=== PATIENT | male | born 1940 | race Caucasian/White ===

== ENCOUNTER 2016-11-27 11:37 | Inpatient (IN) ==
--- NOTE | 2016-11-27 12:22 | Emergency Department Note ---
Disposition Clinical Impression: Generalized weakness, Elevated troponin CHF exacerbation Qualifiers: Congestive heart failure type: unspecified congestive heart failure type Qualified Code(s): I50.9 - Heart failure, unspecified Disposition: Admitted As Inpatient Condition: Fair Referrals: Adolfo Tobias DO [Primary Care Provider] - Forms: ED Satisfaction Letter Time of Disposition: 14:03 SOB HPI - General Chief Complaint: ED Shortness of Breath/Dyspnea Stated Complaint: RYDER Cough L side pain Time Seen by Provider: 11/27/16 12:06 Source: patient Limitations: no limitations Nursing Notes Reviewed: Yes Vital Signs Reviewed: Yes - History of Present Illness Patient is a 76-year-old male who presents to [facility] ED with a chief complaint of difficulty breathing. Patient was recently discharged home on 11/23/2016 after having fluid removed via dialysis for his congestive heart failure. Patient has continued to undergo dialysis Sunday and Sunday and decided this morning. States he has been increasingly short of breath and weak since going home. He lives at home by himself is unable to take care of of himself. Denies any nausea, vomiting, fever or chills. He has had a persistent cough. No chest pain or abdominal pain. He is complaining of some left-sided rib pain and left shoulder pain. No prior SC. Patient also has history of amyloidosis for which he receives chemotherapy. Pt Subjective Complaint: shortness of breath Onset (ago): day(s) Context: recent illness Severity: moderate Consistency/Duration: gradually worsening Improves with: nothing Worsens with: lying flat, exertion Known history of: congestive heart failure Associated symptoms: Reports: cough, orthopnea Treatment prior to arrival: none Cough present: Yes Cough Description: Involuntary, Hacking Cough Frequency: Intermittent Sputum production: Yes Sputum Amount: Small Sputum Color: Yellow - Related Data Home oxygen amount: 2 liters Home Medications Medication Instructions Recorded Confirmed Acetaminophen [Tylenol Arthritis] 650 mg PO BID 07/26/16 11/27/16 Aspirin [Lo-Dose Aspirin EC] 81 mg PO DAILY 07/26/16 11/27/16 Calcium Acetate [Phos-LO] 667 mg PO TIDWM 07/26/16 11/27/16 Docusate [Colace] 100 mg PO BID 07/26/16 11/27/16 EPINEPHrine [Epipen] 0.3 mg IM ONCE PRN 07/26/16 11/27/16 Finasteride [Proscar] 5 mg PO DAILY 07/26/16 11/27/16 Fluticasone Propionate [Flovent 2 spray IH DAILY 07/26/16 11/27/16 Diskus] Furosemide [Lasix] 20 mg PO DAILY 07/26/16 11/27/16 Metoprolol [Lopressor] 25 mg PO BID 07/26/16 11/27/16 Omeprazole [PriLOSEC] 20 mg PO DAILY 07/26/16 11/27/16 Simvastatin [Zocor] 40 mg PO HS 07/26/16 11/27/16 Sodium Bicarbonate 650 mg PO BID 07/26/16 11/27/16 Vit A/C/E AC/Znox/Cupric Oxide 2 each PO DAILY 07/26/16 11/27/16 [Eye Vitamin-Minerals Tablet] Warfarin [Coumadin] 2.5 mg PO SUTUTHSA 07/26/16 11/27/16 Warfarin [Coumadin] 5 mg PO MOWEFR 07/26/16 11/27/16 Polyvinyl Alcohol/Povidone/Pf 1 drop OP DAILY 08/18/16 11/27/16 [Refresh Classic Eye Drops] Oxygen 2 l NS AD 10/13/16 11/27/16 Polyethylene Glycol 3350 [MiraLAX] 17 gm PO DAILY 11/20/16 11/27/16 Valacyclovir HCl [Valacyclovir] 500 mg PO DAILY 11/20/16 11/27/16 Previous Rx's Medication Instructions Recorded Ascorbic Acid [Vitamin C] 500 mg PO DAILY #30 tablet 09/08/16 Ferrous Sulfate 325 mg PO DAILY #30 tablet 09/08/16 HYDROcodone/Acet 5/325 mg [Omar 1 tab PO Q6H PRN #10 tab 10/13/16 5-325 mg] Allergies Allergy/AdvReac Type Severity Reaction Status Date / Time Amoxicillin Allergy Swelling Verified 11/20/16 16:25 of Lip/Tongue/Throat Penicillins [PCN] Allergy Anaphylaxis Verified 11/20/16 12:37 venom-honey bee Allergy Anaphylaxis Verified 11/20/16 12:37 [bee venom (honey bee)] All systems ED: reviewed and negative except as stated. Past Medical History - Past Medical History Attestation: Yes The following information was validated with the patient. Source: patient Medical history: Reports: arthritis, atrial fibrillation, cancer, CHF, dialysis , GERD, hyperlipidemia, osteoporosis, renal disease, valvular heart disease, other Surgical history: Reports: appendectomy Psychiatric history: Reports: no psych history - Social History Smoking Status: Former smoker Smokeless Tobacco Status: No Alcohol use: Reports: none Drug use: Reports: none Physical Exam - General Limitations: no limitations General appearance: alert, in no apparent distress - Head Head exam: atraumatic, normocephalic, normal inspection - Eye Eye exam: Present: normal appearance, PERRL, EOMI - ENT ENT exam: normal exam, normal oropharynx, mucous membranes moist - Neck Neck exam: Present: normal inspection, full ROM, trachea midline - Chest Chest inspection: Present: normal inspection, symmetric chest wall rise - Respiratory Respiratory exam: Present: other (diffuse rhonchi at the bases) - Cardiovascular Cardiovascular exam: Present: regular rate, normal rhythm, normal heart sounds - Abdominal Exam Abdominal exam: Present: soft, Non-Tender. Absent: tenderness, distention, guarding, rebound, rigidity - Extremities Exam Extremities exam: Present: pedal edema - Back Exam Back exam: Present: normal inspection, full ROM. Absent: tenderness - Neurological Exam Neurological exam: Present: alert, oriented X3 - Psychiatric Psychiatric exam: Present: normal affect, normal mood - Skin Skin exam: Present: warm, dry, intact, normal color Course Course Narrative: Patient seen and examined. Difficulty breathing and worsening cough. Recent admission for acute CHF exacerbation. Cardiopulmonary workup initiated. - Reevaluation(s) Reevaluation #1: Patient's lab work shows his troponin is elevated at 0.15. It was 0.1 a lot time he was here. His BNP is also 2497 which previously was 2600s. His chest x -ray still shows bilateral pleural effusions and stable pulmonary congestion. However, patient is so symptomatic and very weak. I feel he likely will need placement for some physical therapy as well as more care. Patient lives at home by himself currently. He is unable to even get up from his chair. I spoke with Dr. Alex who is patient's fiberglass product tester, who feels patient can be admitted with fluid overload. I spoke with hospitalist Dr. Monique who has accepted patient for admission. Time: 14:01 Vital Signs Temperature 98.6 F 11/27/16 11:51 Pulse Rate 78 11/27/16 11:51 Respiratory Rate 20 11/27/16 11:51 Blood Pressure 98/55 11/27/16 11:51 O2 Sat by Pulse Oximetry 93 L 11/27/16 11:51 Temperature 98.6 F 11/27/16 11:51 Pulse Rate 92 11/27/16 13:34 Respiratory Rate 22 11/27/16 12:22 Blood Pressure 110/54 11/27/16 13:34 O2 Sat by Pulse Oximetry 98 11/27/16 13:34 Oxygen Delivery Oxygen Delivery Nasal Cannula Shortness of Breath/Dyspnea - Medical Records Medical records reviewed: Yes I reviewed the patient's medical records. - Lab Data Lab results reviewed: Yes I reviewed the patient's lab results. Result diagrams: 11/27/16 12:53 11/27/16 12:53 Lab Results 11/27/16 11/27/16 11/27/16 Range/Units 12:53 12:53 12:53 WBC 11.9 H (4.3-11.1) K/mcL RBC 3.04 L (4.19-5.50) M/mcL Hgb 9.5 L (12.9-16.9) g/dL Hct 29.3 L (37.5-50.1) % MCV 96.4 (83.0-100.0) fL MCH 31.3 (28.0-33.3) pg MCHC 32.4 (31.6-35.5) g/dL RDW 18.5 H (11.5-14.5) % Plt Count 486 H (140-400) K/mcL MPV 11.3 (9.4-12.4) fL Immature Gran % 0.3 (0-4) % Seg Neutrophils % 81.2 % Lymphocytes % 3.3 % Monocytes % 12.3 % Eosinophils % 2.0 % Basophils % 0.9 % Neutrophils # 9.6 H (1.6-8.9) K/mcL Lymphocytes # 0.4 L (0.6-4.6) K/mcL Monocytes # 1.5 H (0.0-1.3) K/mcL Eosinophils # 0.2 (0.0-0.6) K/mcL Basophils # 0.1 (0.0-0.2) K/mcL Nucleated RBCs/100 WBC 0.3 H (0) /100 WBC PT 32.0 H (9.4-12.1) Seconds INR 2.9 APTT 38.1 H (26.0-36.0) Seconds Sodium 139 (136-145) mEq/L Potassium 3.4 L (3.5-4.5) mEq/L Chloride 98 (98-109) mEq/L Carbon Dioxide 30 H (19-29) mEq/L BUN 28 H (8-26) mg/dL Creatinine 3.73 H (0.72-1.25) mg/dL Est GFR ( Amer) 19 L (> 60) Est GFR (Non-Af Amer) 16 L (> 60) BUN/Creatinine Ratio 8 (6-26) Glucose 116 H (70-99) mg/dL Calculated Osmolality 294 (280-300) Lactic Acid (0.5-2.2) mmol/L Calcium 8.9 (8.6-10.8) mg/dL Troponin I (0-0.03) ng/mL B-Natriuretic Peptide (0-100) pg/mL 11/27/16 11/27/16 11/27/16 Range/Units 12:53 12:53 12:53 WBC (4.3-11.1) K/mcL RBC (4.19-5.50) M/mcL Hgb (12.9-16.9) g/dL Hct (37.5-50.1) % MCV (83.0-100.0) fL MCH (28.0-33.3) pg MCHC (31.6-35.5) g/dL RDW (11.5-14.5) % Plt Count (140-400) K/mcL MPV (9.4-12.4) fL Immature Gran % (0-4) % Seg Neutrophils % % Lymphocytes % % Monocytes % % Eosinophils % % Basophils % % Neutrophils # (1.6-8.9) K/mcL Lymphocytes # (0.6-4.6) K/mcL Monocytes # (0.0-1.3) K/mcL Eosinophils # (0.0-0.6) K/mcL Basophils # (0.0-0.2) K/mcL Nucleated RBCs/100 WBC (0) /100 WBC PT (9.4-12.1) Seconds INR APTT (26.0-36.0) Seconds Sodium (136-145) mEq/L Potassium (3.5-4.5) mEq/L Chloride (98-109) mEq/L Carbon Dioxide (19-29) mEq/L BUN (8-26) mg/dL Creatinine (0.72-1.25) mg/dL Est GFR ( Amer) (> 60) Est GFR (Non-Af Amer) (> 60) BUN/Creatinine Ratio (6-26) Glucose (70-99) mg/dL Calculated Osmolality (280-300) Lactic Acid 1.3 (0.5-2.2) mmol/L Calcium (8.6-10.8) mg/dL Troponin I 0.15 H* (0-0.03) ng/mL B-Natriuretic Peptide 2497 H (0-100) pg/mL - Radiology Data Radiology results reviewed: Yes I reviewed the patient's radiology results. - EKG Data EKG attestation: Yes I reviewed and interpreted this EKG. EKG results narrative: EKG done at 1216 shows normal sinus rhythm with a rate of [address] elevation or depression. Low voltage throughout. Normal axis. Attestation Statement - Attestation Attestation: Patient was seen with resident physician. I reviewed the history, physical, assessment and plan, and agree with the findings. I also personally evaluated this patient and had [id number] time with this patient. 76-year-old male with renal failure and on dialysis, that presents to the emergency department with worsening shortness of breath and continuation of cough. He was recently in the hospital for CHF and not sure about pneumonia, was discharged to home the end of last week. He had dialysis this morning. He continues to cough and feel short of breath so he came into the ED for evaluation. On examination patient has an uncontrolled cough which is spontaneous, his heart is regular rhythm and rate his lungs do not have any wheezing and I could not auscultate any specific crackles. Abdomen is soft and nontender extremities are largely unremarkable and did not appreciate substantial swelling in the lower extremities. We will workup for CHF as well as other pulmonary problems. We discussed the case with the patient's fiberglass product tester, and his concern was his continued cough and CHF despite recent hospitalization as well as dialysis this morning. He was suggesting admission to the hospital for further fluid management. This was communicated to the hospitalist and admission was arranged.. Agree with resident physician assessment plan.
[2016-11-27 13:03] LABS: Basophils # 0.1 K/mcL (0.0-0.2); Basophils % 0.9 %; Eosinophils # 0.2 K/mcL (0.0-0.6); Hematocrit 29.3 % (37.5-50.1); Hemoglobin 9.5 g/dL (12.9-16.9); Immature Granulocytes % 0.3 % (0-4); Lymphocytes # 0.4 K/mcL (0.6-4.6); Lymphocytes % 3.3 %; Mean Corpuscular HGB Conc 32.4 g/dL (31.6-35.5); Mean Corpuscular Hemoglobin 31.3 pg (28.0-33.3); Mean Corpuscular Volume 96.4 fL (83.0-100.0); Mean Platelet Volume 11.3 fL (9.4-12.4); Monocytes # 1.5 K/mcL (0.0-1.3); Monocytes % 12.3 %; Neutrophils # 9.6 K/mcL (1.6-8.9); Nucleated Red Blood Cells 0.3 /100 WBC (0); Platelet Count 486 K/mcL (140-400); Red Blood Count 3.04 M/mcL (4.19-5.50); Red Cell Distribution Width 18.5 % (11.5-14.5); Segmented Neutrophils % 81.2 %
[2016-11-27 13:13] LABS: INR 2.9
[2016-11-27 13:15] LABS: Activated Partial Thrombo Time 38.1 Seconds (26.0-36.0)
[2016-11-27 13:19] LABS: Calcium 8.9 mg/dL (8.6-10.8); Potassium 3.4 mEq/L (3.5-4.5)
[2016-11-27] MEDS ORDERED: Benzonatate 100 MG CAPSULE PO ONE (14:04)
--- NOTE | 2016-11-27 15:38 | Internal Med History&Physical ---
Date of Encounter: 11/27/16 Time of Encounter: 15:35 Assessment and Plan (1) Generalized weakness Current visit: Yes Status: Acute The patient has been admitted due to generalized weakness, persistent cough in the setting of a patient with multiple comorbid diseases, including amyloidosis and end-stage renal disease on hemodialysis. We will continue with hemodialysis while in-house. Will give antibiotic therapy with IV Levaquin for now. Will obtain sputum culture, Legionella and strep pneumo testing. Evaluation by both physical therapy and the patient in therapy. account services analyst evaluation. Patient might benefit from placement to a subacute rehabilitation center. DVT prophylaxis. A mild troponin elevation was noted, this is a chronic finding in this particular patient, there is no evidence of chest pain at this point. We will not follow trend of troponins. Continue with oxygen therapy. Daily weights, strict monitoring of his input and output. 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 Yang is a 76 year old male with past medical history of end-stage renal disease on hemodialysis, amyloidosis, hypertension, patient was recently discharged from this facility to home with outpatient physical therapy. He presented to our emergency department complaining of progressive shortness of breath along with persistent productive cough. The patient states that I will go is not complaining of fever or chills, he feels that his cough is not getting any better. He denies wheezing,consciousness, rash. He denies chest pain or murmur diarrhea, constipation. The patient has been admitted multiple times in the past, he was admitted back in October for a healthcare associated pneumonia for which he received IV antibiotics and was subsequently discharged to a subacute rehabilitation center, he was a bike for a couple of weeks and was discharged home. The patient lives by himself. Initial workup in the emergency department revealed a patient with laboratory data consistent with his chronic kidney disease. Mild elevation of cardiac biomarkers, which is chronic. No evidence of pneumonia in the x-ray. However, the patient was otherwise extremely weak. He is on long-term oxygen therapy at home. The patient was admitted for further management and workup. Past Med Surg Social Fam HX - Past Medical History Medical history: arthritis, atrial fibrillation, cancer, CHF, dialysis, GERD, hyperlipidemia, osteoporosis, renal disease, valvular heart disease, other Psychiatric history: no psych history - Past Surgical History Surgical History: appendectomy - Social History Smoking Status: Former smoker Smokeless Tobacco Status: No Alcohol use: none Drug use: none Internal Medicine - H&P: Meds Acetaminophen [Tylenol Arthritis] 650 mg PO BID 07/26/16 [History] Aspirin [Lo-Dose Aspirin EC] 81 mg PO DAILY 07/26/16 [History] Calcium Acetate [Phos-LO] 667 mg PO TIDWM 07/26/16 [History] Docusate [Colace] 100 mg PO BID 07/26/16 [History] EPINEPHrine [Epipen] 0.3 mg IM ONCE PRN 07/26/16 [History] Finasteride [Proscar] 5 mg PO DAILY 07/26/16 [History] Fluticasone Propionate [Flovent Diskus] 2 spray IH DAILY 07/26/16 [History] Furosemide [Lasix] 20 mg PO DAILY 07/26/16 [History] Metoprolol [Lopressor] 25 mg PO BID 07/26/16 [History] Omeprazole [PriLOSEC] 20 mg PO DAILY 07/26/16 [History] Simvastatin [Zocor] 40 mg PO HS 07/26/16 [History] Sodium Bicarbonate 650 mg PO BID 07/26/16 [History] Vit A/C/E AC/Znox/Cupric Oxide [Eye Vitamin-Minerals Tablet] 2 each PO DAILY [History] Warfarin [Coumadin] 2.5 mg PO SUTUTHSA 07/26/16 [History] Warfarin [Coumadin] 5 mg PO MOWEFR 07/26/16 [History] Polyvinyl Alcohol/Povidone/Pf [Refresh Classic Eye Drops] 1 drop OP DAILY [History] Ascorbic Acid [Vitamin C] 500 mg PO DAILY #30 tablet 09/08/16 [Rx] Ferrous Sulfate 325 mg PO DAILY #30 tablet 09/08/16 [Rx] HYDROcodone/Acet 5/325 mg [[place] 5-325 mg] 1 tab PO Q6H PRN #10 tab 10/13/16 [Rx ] Oxygen 2 l NS AD 10/13/16 [History] Polyethylene Glycol 3350 [MiraLAX] 17 gm PO DAILY 11/20/16 [History] Valacyclovir HCl [Valacyclovir] 500 mg PO DAILY 11/20/16 [History] Allergies Amoxicillin Allergy (Verified 11/20/16 16:25) Swelling of Lip/Tongue/Throat Penicillins [PCN] Allergy (Verified 11/20/16 12:37) Anaphylaxis venom-honey bee [bee venom (honey bee)] Allergy (Verified 11/20/16 12:37) Anaphylaxis All Systems PM: A 10-system review of systems was performed and is negative for pertinent findings except as documented above in the HPI. - Constitutional Constitutional: as per HPI, fatigue, malaise, weakness, no chills, no fever(s), no night sweats - EENT Eyes: as per HPI, no change in vision, no discharge, no pain, no photophobia Ears: as per HPI, no ear discharge, no ear pain, no tinnitus Nose, mouth and throat: as per HPI, no dysphagia, no nasal discharge, no neck pain, no sore throat - Breasts Breasts: as per HPI - Cardiovascular Cardiovascular ROS IM: as per HPI, dyspnea, dyspnea on exertion, no chest pain, no diaphoresis, no lightheadedness, no palpitations, no syncope - Respiratory Respiratory: as per HPI, cough, dyspnea, dyspnea on exertion, no wheezing, no excessive phlegm production - Gastrointestinal Gastrointestinal: as per HPI, no abdominal pain, no diarrhea, no hematemesis, no hematochezia, no melena, no nausea, no vomiting - Genitourinary Genitourinary ROS male: as per HPI - Musculoskeletal Musculoskeletal ROS IM: as per HPI, no numbness, no tingling - Integumentary Integumentary IM: as per HPI, no rash, no unusual bruising - Neurological Neurological ROS: as per HPI, no confusion, no convulsions, no focal weakness, no numbness, no tingling, no tremor(s) - Psychiatric Psychiatric: as per HPI - Endocrine Endocrine IM: as per HPI - Hematologic/Lymphatic Hematologic/Lymphatic: as per HPI, no easy bruising - Allergic/Immunologic Allergic/Immunologic: as per HPI - Constitutional Vitals: Temp Pulse Resp BP Pulse Ox 98.6 F 89 13 112/57 99 11/27/16 11:51 11/27/16 14:36 11/27/16 14:47 11/27/16 14:47 11/27/16 14:36 General appearance: Present: disheveled, mild distress, A&O X 3, underweight - Head Head exam: Present: atraumatic, normocephalic - Eye Eye exam: Present: PERRL, conjuntiva pink, sclera anicteric Pupils: Present: PERRL - Neck Neck exam general surgery: Present: supple, trachea midline. Absent: lymphadenopathy - Respiratory Respiratory exam: Present: decreased breath sounds, rhonchi. Absent: accessory muscle use, rales, wheezes - Cardiovascular Cardiovascular exam: Present: RRR, +S1, +S2. Absent: diastolic murmur, gallop, rubs, systolic murmur - GI/Abdominal GI/Abdominal exam: Present: normal bowel sounds, soft, no peritoneal signs. Absent: distended, tenderness - Extremities Exam Extremities exam: Present: warm, radial pulses palpable and symetrical. Absent : calf tenderness, cyanotic, pedal edema - Neurological Exam Neurological exam: Present: CN II-XII intact, oriented X3, no focal deficits. Absent: pronater drift, facial droop, speech deficit - Skin Skin exam: Present: dry, intact Internal Med - H&P Results - Labs CBC & Chem 7: 11/27/16 12:53 11/27/16 12:53
[2016-11-27] MEDS ORDERED: *HR* HYDROcodone/Acet 5/325 mg TABLET PO PRN (15:44)
[2016-11-27] MEDS ORDERED: *HR* Morphine 2 MG/ML SYRINGE IVP PRN (15:44)
[2016-11-27] MEDS ORDERED: Naloxone 0.4 MG/ML INJ IVP PRN (15:44)
[2016-11-27] MEDS ORDERED: Acetaminophen 325 MG TABLET PO PRN (15:44)
[2016-11-27] MEDS ORDERED: Levofloxacin 750 MG/150 ML 750 MG/150 ML BAG IVPB SCH (16:00)
[2016-11-27] MEDS ORDERED: Levofloxacin 750 MG/150 ML 750 MG/150 ML BAG IVPB ONE (16:16)
[2016-11-27] MEDS: Calcium Acetate 667 MG CAPSULE PO SCH (17:01)
[2016-11-27] MEDS: *HR* Warfarin 5 MG TABLET PO SCH (17:01)
--- NOTE | 2016-11-27 17:54 | Electrocardiograph Report ---
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
[2016-11-27] MEDS ORDERED: *HR* Heparin 5,000 UNIT/ML VIAL SQ SCH (18:00)
[2016-11-28 07:29] LABS: Basophils # 0.1 K/mcL (0.0-0.2); Basophils % 0.8 %; Eosinophils # 0.2 K/mcL (0.0-0.6); Eosinophils % 1.4 %; Hematocrit 27.8 % (37.5-50.1); Hemoglobin 8.9 g/dL (12.9-16.9); Immature Granulocytes % 0.4 % (0-4); Lymphocytes # 0.6 K/mcL (0.6-4.6); Lymphocytes % 4.5 %; Mean Corpuscular Hemoglobin 30.8 pg (28.0-33.3); Mean Corpuscular Volume 96.2 fL (83.0-100.0); Mean Platelet Volume 11.8 fL (9.4-12.4); Monocytes # 2.6 K/mcL (0.0-1.3); Monocytes % 18.9 %; Neutrophils # 10.2 K/mcL (1.6-8.9); Nucleated Red Blood Cells 0.2 /100 WBC (0); Platelet Count 460 K/mcL (140-400); Red Blood Count 2.89 M/mcL (4.19-5.50); Red Cell Distribution Width 18.5 % (11.5-14.5)
[2016-11-28 07:36] LABS: INR 2.6
[2016-11-28 07:43] LABS: Calcium 9.4 mg/dL (8.6-10.8); Potassium 4.1 mEq/L (3.5-4.5)
[2016-11-28] MEDS: Finasteride 5 MG TABLET PO SCH (07:56)
[2016-11-28] MEDS: Aspirin Enteric Coated 81 MG Tablet PO SCH (07:56)
[2016-11-28] MEDS: Ascorbic Acid 500 MG TABLET PO SCH (07:56)
[2016-11-28] MEDS: Calcium Acetate 667 MG CAPSULE PO SCH ×3 (07:57→17:09)
[2016-11-28] MEDS: FLUTICASONE PROPIONATE IH SCH (07:58)
[2016-11-28 08:15] LABS: Hypochromasia Present (Not Present)
[2016-11-28 08:16] LABS: Anisocytosis 1+ (Not Present)
[2016-11-28 08:17] LABS: Spherocytes 1+ (Not Present); Target Cells 1+ (Not Present)
[2016-11-28 08:19] LABS: Platelet Estimate Increased (Normal)
--- NOTE | 2016-11-28 08:20 | Internal Med Progress Note ---
<Peyman Varela - Last Filed: 11/28/16 13:17> Date of Encounter: 11/28/16 Time of Encounter: 08:18 - Assessment and plan (1) HCAP (healthcare-associated pneumonia) Current Visit: No Status: Acute Assessment and plan: The patient would fit criteria for Healthcare-associated pneumonia given his last hospitalization, ESRD on HD. CXR reviewed, with mild bilateral pleural effusions, no definitive focal infiltrate. Sputum does not fit criteria for Cx. Will continue Levaquin at this time, Day #2. Will broaden coverage as clinically indicated. BC x 2 to be obtained. UAT and Influenza A/B ordered. (2) Generalized weakness Current Visit: Yes Status: Acute Assessment and plan: The patient was admitted 11/27/16 due to generalized weakness, persistent cough in the setting of multiple comorbid diseases, including amyloidosis and end- stage renal disease on hemodialysis. CXR reviewed, with mild bilateral pleural effusions, no definitive focal infiltrate. Sputum obtained does not meet criteria for culture. Exam with coughing spells, but without crackles. Appreciate PT/OT/SW input for appropriate patient placement. (3) ESRD (end stage renal disease) on dialysis Current Visit: No Status: Chronic Assessment and plan: Follows [facility] MWF. Appreciate them following. (4) Elevated troponin Current Visit: No Status: Acute Assessment and plan: Chronic in setting of ESRD on HD. No angina or anginal equivalents. (5) Primary amyloidosis of light chain type Current Visit: No Status: Chronic Assessment and plan: Followed by [facility]. (6) DVT prophylaxis Current Visit: No Status: Acute Assessment and plan: INR therapeutic on coumadin. - Subjective Interval history: Patient seen/eval, reports he has been coughing more, not bringing much up. Denies any fever, chills, chest pain, pressure, nvd. He is eating breakfast and appears to be in no distress. - Constitutional Vitals: Temp Pulse Resp BP Pulse Ox 98.8 F 95 18 122/65 92 L 11/28/16 08:14 11/28/16 08:14 11/28/16 08:14 11/28/16 08:14 11/28/16 08:14 General appearance: Present: disheveled, mild distress, A&O X 3, underweight - Head Head exam: Present: atraumatic, normocephalic - Eye Eye exam: Present: EOMI, sclera anicteric - ENT ENT exam: Present: mucous membranes moist - Neck Neck exam general surgery: Present: supple, trachea midline - Respiratory Respiratory exam: Present: rhonchi (Scant end exp ronchi, no wheeze or crackles. Has coughing spells. ). Absent: accessory muscle use, stridor, wheezes - Cardiovascular Cardiovascular exam: Present: +S1, +S2. Absent: JVD Additional comments: Right-sided permacath, bandaged cdi - GI/Abdominal GI/Abdominal exam: Present: soft, no peritoneal signs. Absent: tenderness - Extremities Exam Extremities exam: Present: pedal edema (1+ bilateral pretibial LE), warm, radial pulses palpable and symetrical - Neurological Exam Neurological exam: Present: strengths equal and symetr throughout. Absent: speech deficit Internal Medicine: Result - Labs CBC & Chem 7: 11/28/16 07:01 11/28/16 07:01 Labs: Short CBC 11/28/16 Range/Units 07:01 WBC 13.8 H (4.3-11.1) K/mcL Hgb 8.9 L (12.9-16.9) g/dL Hct 27.8 L (37.5-50.1) % Plt Count 460 H (140-400) K/mcL BMP 11/28/16 07:01 Sodium 140 Potassium 4.1 Chloride 98 Carbon Dioxide 31 H BUN 43 H D Creatinine 5.31 H Glucose 85 Calcium 9.4 - ABG Interpretation ABG results: PT/INR, D-dimer PT 29.0 Seconds (9.4-12.1) H 11/28/16 07:01 Consult Discharge Plan - Plan Referrals: [facility] [Outside] - 12/08/16 1:30 pm <[facility] - Last Filed: 11/28/16 17:13> Date of Encounter: 11/28/16 - Assessment and plan (1) Generalized weakness Current Visit: Yes Status: Acute (2) HCAP (healthcare-associated pneumonia) Current Visit: No Status: Acute (3) ESRD (end stage renal disease) on dialysis Current Visit: No Status: Chronic (4) Primary amyloidosis of light chain type Current Visit: No Status: Chronic (5) Elevated troponin Current Visit: Yes Status: Acute (6) DVT prophylaxis Current Visit: No Status: Acute - Constitutional Vitals: Temp Pulse Resp BP Pulse Ox 98.7 F 99 16 132/64 100 11/28/16 12:57 11/28/16 12:57 11/28/16 14:55 11/28/16 12:57 11/28/16 14:55 Internal Medicine: Result - Labs CBC & Chem 7: 11/28/16 07:01 11/28/16 07:01 Labs: Short CBC 11/28/16 Range/Units 07:01 WBC 13.8 H (4.3-11.1) K/mcL Hgb 8.9 L (12.9-16.9) g/dL Hct 27.8 L (37.5-50.1) % Plt Count 460 H (140-400) K/mcL Neutrophils # 10.2 H (1.6-8.9) K/mcL BMP 11/28/16 07:01 Sodium 140 Potassium 4.1 Chloride 98 Carbon Dioxide 31 H BUN 43 H D Creatinine 5.31 H Glucose 85 Calcium 9.4 - ABG Interpretation ABG results: PT/INR, D-dimer PT 29.0 Seconds (9.4-12.1) H 11/28/16 07:01 - Attending Attestation The patient was seen and examined with the residents during rounds. I agree with the physical examination findings, assessment and plan as documented by the resident, Dr. Varela. Briefly, patient with end-stage renal disease on hemodialysis, amyloidosis, admitted due to shortness of breath and persistent cough. We will continue with current management, nebulizer therapy, oxygen supplementation. Evaluation by physical therapy. Plan of care was explained in detail to the patient, he expressed understanding.
[2016-11-28] MEDS: Ipratropium/Albuterol Neb 3 ML IH PRN ×3 (08:53→22:49)
[2016-11-28] MEDS: Benzonatate 100 MG CAPSULE PO PRN ×2 (09:52→20:39)
--- NOTE | 2016-11-28 10:27 | Nephrology Consult Note ---
<Reyna Terrell - Last Filed: 11/28/16 10:23> Date of Encounter: 11/28/16 Time of Encounter: 10:23 Assessment and Plan (1) ESRD (end stage renal disease) on dialysis Current Visit: No Status: Chronic Had full HD treatment yesterday Plan for HD tomorrow Increase Phoslo to 2 tabs with meals and 1 tab with snacks-correct home dosage Avoid nephrotoxins if possible (2) Generalized weakness Current Visit: Yes Status: Acute Agree with PT/OT per primary team (3) Shortness of breath Current Visit: No Status: Acute per primary team Will remove fluids as necessary with HD treatments (4) Primary amyloidosis of light chain type Current Visit: No Status: Chronic per primary/oncology team History of Present Illness - Reason for Consult Consult date: 11/28/16 - Chief Complaint General weakness, dyspnea, ESRD on dialysis - History of Present Illness Mr. Yang is a 76 year old male with a past medical history of end-stage renal disease on hemodialysis, amyloidosis, and hypertension, who was recently discharged from this facility after being admitted for shortness of breath. He is a well known patient of our practice, receiving dialysis at [facility] on M,W,F and is very compliant with his treatments, diet, and fluid restriction. Mr Yang presented to our emergency department complaining of progressive shortness of breath along with persistent productive cough, which again has been ongoing now for several weeks and was the same reason he was admitted last time. Nephrology has been consulted to manage his HD while hospitalized. Past Med Surg Social Fam HX - Past Medical History Medical history: arthritis, atrial fibrillation, CHF, dialysis, GERD, hyperlipidemia, osteoporosis, renal disease, valvular heart disease, other Psychiatric history: no psych history - Past Surgical History Surgical History: appendectomy - Social History Smoking Status: Former smoker Smokeless Tobacco Status: No Alcohol use: none Drug use: none Medications and Allergies Acetaminophen [Tylenol Arthritis] 650 mg PO BID 07/26/16 [History] Aspirin [Lo-Dose Aspirin EC] 81 mg PO DAILY 07/26/16 [History] Calcium Acetate [Phos-LO] 667 mg PO TIDWM 07/26/16 [History] Docusate [Colace] 100 mg PO BID 07/26/16 [History] EPINEPHrine [Epipen] 0.3 mg IM ONCE PRN 07/26/16 [History] Finasteride [Proscar] 5 mg PO DAILY 07/26/16 [History] Fluticasone Propionate [Flovent Diskus] 2 spray IH DAILY 07/26/16 [History] Furosemide [Lasix] 20 mg PO DAILY 07/26/16 [History] Metoprolol [Lopressor] 25 mg PO BID 07/26/16 [History] Omeprazole [PriLOSEC] 20 mg PO DAILY 07/26/16 [History] Simvastatin [Zocor] 40 mg PO HS 07/26/16 [History] Sodium Bicarbonate 650 mg PO BID 07/26/16 [History] Vit A/C/E AC/Znox/Cupric Oxide [Eye Vitamin-Minerals Tablet] 2 each PO DAILY [History] Warfarin [Coumadin] 2.5 mg PO SUTUTHSA 07/26/16 [History] Warfarin [Coumadin] 5 mg PO MOWEFR 07/26/16 [History] Polyvinyl Alcohol/Povidone/Pf [Refresh Classic Eye Drops] 1 drop OP DAILY [History] Ascorbic Acid [Vitamin C] 500 mg PO DAILY #30 tablet 09/08/16 [Rx] Ferrous Sulfate 325 mg PO DAILY #30 tablet 09/08/16 [Rx] HYDROcodone/Acet 5/325 mg [Marion 5-325 mg] 1 tab PO Q6H PRN #10 tab 10/13/16 [Rx ] Oxygen 2 l NS AD 10/13/16 [History] Polyethylene Glycol 3350 [MiraLAX] 17 gm PO DAILY 11/20/16 [History] Valacyclovir HCl [Valacyclovir] 500 mg PO DAILY 11/20/16 [History] Allergies Amoxicillin Allergy (Verified 11/20/16 16:25) Swelling of Lip/Tongue/Throat Penicillins [PCN] Allergy (Verified 11/20/16 12:37) Anaphylaxis venom-honey bee [bee venom (honey bee)] Allergy (Verified 11/20/16 12:37) Anaphylaxis Review of Systems All Systems: reviewed and no additional remarkable complaints except as stated Constitutional: fatigue, weakness, no chills, no fever(s) Nose, mouth and throat: no disequilibrium, no dizziness Cardiovascular: dyspnea, dyspnea on exertion, no edema Respiratory: cough, dyspnea, dyspnea on exertion, wheezing, change in phlegm color Gastrointestinal: no constipation, no nausea, no vomiting Neurological: no behavioral changes, no confusion Exam - Vital Signs Vital signs: Initial Vital Signs Temp Pulse Resp BP Pulse Ox 98.6 F 78 20 98/55 93 L 11/27/16 11:51 11/27/16 11:51 11/27/16 11:51 11/27/16 11:51 11/27/16 11:51 Vital Signs - Last 8 Hours Temp Pulse Resp BP Pulse Ox 11/28/16 08:53 18 95 11/28/16 08:14 98.8 F 95 18 122/65 92 L 11/28/16 04:28 97.9 F 89 18 109/64 96 Intake and Output 11/27/16 11/28/16 11/28/16 23:59 07:59 15:59 Intake Total 240 / 240 150 / 150 Output Total 0 / 0 Balance 240 / 240 150 / 150 Intake: Oral 240 / 240 150 / 150 Output: Urine 0 / 0 Other: Meal Dinner Percent of Meal Consumed 90% Weight 64.3 kg Blood Glucose* 125 99 Patient Weight 11/28/16 23:59 Weight 64.3 kg - General Appearance General appearance: chronically ill, fatigue, frail EENT: ATNC, mucous membranes moist, hearing intact, vision intact Neck: supple Respiratory: clear (decreased throughout) Cardiology: no edema, normal S1, normal S2 Gastrointestinal: no tenderness Neurologic: alert and oriented x3 Psychiatric: mood/affect appropriate, cooperative Results - Lab Results 11/28/16 07:01 11/28/16 07:01 Most recent lab results Calcium 9.4 mg/dL (8.6-10.8) 11/28/16 07:01 Magnesium 2.0 mg/dL (1.6-2.6) 11/28/16 07:01 Consult Discharge Plan - Plan Referrals: [facility] [Outside] - 12/08/16 1:30 pm <Frandy Almeida - Last Filed: 11/28/16 17:30> Date of Encounter: 11/28/16 Exam - Vital Signs Vital signs: Initial Vital Signs Temp Pulse Resp BP Pulse Ox 98.6 F 78 20 98/55 93 L 11/27/16 11:51 11/27/16 11:51 11/27/16 11:51 11/27/16 11:51 11/27/16 11:51 Vital Signs - Last 8 Hours Temp Pulse Resp BP Pulse Ox 11/28/16 17:18 97.8 F 96 18 130/70 91 L 11/28/16 14:55 16 100 11/28/16 12:57 98.7 F 99 17 132/64 95 Intake and Output 11/28/16 11/28/16 11/28/16 07:59 15:59 23:59 Intake Total 150 / 150 Output Total 0 / 0 Balance 150 / 150 0 / 0 Intake: Oral 150 / 150 Output: Urine 0 / 0 Other: Weight 64.3 kg Blood Glucose* 101 135 Patient Weight 11/28/16 23:59 Weight 64.3 kg Results - Lab Results 11/28/16 07:01 11/28/16 07:01 Most recent lab results Calcium 9.4 mg/dL (8.6-10.8) 11/28/16 07:01 Magnesium 2.0 mg/dL (1.6-2.6) 11/28/16 07:01 - Attending Attestation I examined this patient and my medical decision-making was reviewed with the WAX PUMPER/PA/Advanced Practice Nurse/Resident Physician. I agree with the documented findings, disposition and treatment plan as described except to the extent set forth below. etiology of SOB unclear as patient is well dialyzed but erik continue to challenge fluid removal. Next HD planned for tomorrow.
[2016-11-28] MEDS ORDERED: *HR* Warfarin 2.5 MG TABLET PO SCH (15:48)
[2016-11-29 04:01] LABS: Basophils # 0.1 K/mcL (0.0-0.2); Basophils % 0.6 %; Eosinophils # 0.1 K/mcL (0.0-0.6); Hematocrit 25.7 % (37.5-50.1); Hemoglobin 8.4 g/dL (12.9-16.9); Immature Granulocytes % 0.5 % (0-4); Lymphocytes # 0.8 K/mcL (0.6-4.6); Lymphocytes % 7.3 %; Mean Corpuscular HGB Conc 32.7 g/dL (31.6-35.5); Mean Corpuscular Volume 94.8 fL (83.0-100.0); Mean Platelet Volume 11.9 fL (9.4-12.4); Monocytes # 1.9 K/mcL (0.0-1.3); Monocytes % 17.5 %; Neutrophils # 7.9 K/mcL (1.6-8.9); Nucleated Red Blood Cells 0.3 /100 WBC (0); Platelet Count 461 K/mcL (140-400); Red Blood Count 2.71 M/mcL (4.19-5.50); Red Cell Distribution Width 18.1 % (11.5-14.5); Segmented Neutrophils % 73.1 %
[2016-11-29 04:03] LABS: INR 2.8; Prothrombin Time 31.3 Seconds (9.4-12.1)
[2016-11-29 04:13] LABS: Calcium 9.6 mg/dL (8.6-10.8); Phosphorous 4.7 mg/dL (2.3-4.7); Potassium 4.5 mEq/L (3.5-4.5)
[2016-11-29] MEDS: Aspirin Enteric Coated 81 MG Tablet PO SCH (06:16)
[2016-11-29] MEDS: Ascorbic Acid 500 MG TABLET PO SCH (06:16)
[2016-11-29] MEDS: Benzonatate 100 MG CAPSULE PO PRN ×2 (06:17→16:45)
[2016-11-29] MEDS: Finasteride 5 MG TABLET PO SCH (06:17)
[2016-11-29] MEDS: FLUTICASONE PROPIONATE IH SCH (06:18)
[2016-11-29] MEDS: Ipratropium/Albuterol Neb 3 ML IH PRN (07:54)
[2016-11-29] MEDS: Calcium Acetate 667 MG CAPSULE PO SCH ×3 (08:14→17:51)
[2016-11-29] MEDS ORDERED: 0.9 % Sodium Chloride 250 ML IV PRN (08:22)
--- NOTE | 2016-11-29 10:27 | Internal Med Progress Note ---
<Peyman Varela - Last Filed: 11/29/16 15:38> Date of Encounter: 11/29/16 Time of Encounter: 10:20 - Assessment and plan (1) HCAP (healthcare-associated pneumonia) Current Visit: No Status: Acute Assessment and plan: The patient would fit criteria for Healthcare-associated pneumonia given his last hospitalization, ESRD on HD. CXR reviewed, with mild bilateral pleural effusions, no definitive focal infiltrate. Sputum does not fit criteria for Cx. Will continue Levaquin at this time, Day #3 BC x 2 obtained on 11/28/15, pending. He has persistent productive cough, and amyloidosis is documented to manifest tracheobronchial infiltration, persistent pleural effusions., parenchymal nodules, alveolar deposits. Has returned nearly to dry weight following dialysis sessions, less likely pleural effusions though still possible. Given persistent productive cough with suspected amyloid involvement, warrants Chest CT for further evaluation. (2) Generalized weakness Current Visit: Yes Status: Acute Assessment and plan: The patient was admitted 11/27/16 due to generalized weakness, persistent cough in the setting of multiple comorbid diseases, including amyloidosis and end- stage renal disease on hemodialysis. CXR reviewed, with mild bilateral pleural effusions, no definitive focal infiltrate. Sputum obtained does not meet criteria for culture. Exam with coughing spells, but without crackles. Appreciate PT/OT/SW input for appropriate patient placement, per documentation agree with HH. (3) ESRD (end stage renal disease) on dialysis Current Visit: No Status: Chronic Assessment and plan: Follows [facility] MWF. Appreciate them following. Underwent dialysis today, doing well. (4) Elevated troponin Current Visit: No Status: Acute Assessment and plan: Chronic in setting of ESRD on HD. No angina or anginal equivalents. 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 (6) DVT prophylaxis Current Visit: No Status: Acute Assessment and plan: INR therapeutic on coumadin. - Subjective Interval history: Patient seen/eval, in dialysis. He reports cough has improved since breathing treatments and tessalon pearls. He denies any chest pain/pressure, palpitations , dyspnea. He did have PT/OT eval yesterday, per report agree with HH with outpatient PT/OT. Patient would like miralax for bowel regimen. - Constitutional Vitals: Temp Pulse Resp BP Pulse Ox 98.0 F 102 18 132/72 96 11/29/16 07:57 11/29/16 07:57 11/29/16 07:58 11/29/16 07:57 11/29/16 07:58 General appearance: Present: disheveled, mild distress, A&O X 3, underweight - Head Head exam: Present: atraumatic, normocephalic - Eye Eye exam: Present: EOMI, sclera anicteric - ENT ENT exam: Present: mucous membranes moist - Neck Neck exam general surgery: Present: supple - Respiratory Respiratory exam: Present: rhonchi (diffuse scant ronchi, no basilar crackles). Absent: accessory muscle use, rales, wheezes - Cardiovascular Cardiovascular exam: Present: +S1, +S2. Absent: JVD Additional comments: Right chest permacath, bandaged cdi - GI/Abdominal GI/Abdominal exam: Present: soft, no peritoneal signs. Absent: tenderness - Extremities Exam Extremities exam: Present: warm. Absent: pedal edema - Neurological Exam Neurological exam: Absent: facial droop, speech deficit Internal Medicine: Result - Labs CBC & Chem 7: 11/29/16 03:20 11/29/16 03:20 Labs: Short CBC 11/29/16 Range/Units 03:20 WBC 10.9 (4.3-11.1) K/mcL Hgb 8.4 L (12.9-16.9) g/dL Hct 25.7 L (37.5-50.1) % Plt Count 461 H (140-400) K/mcL Neutrophils # 7.9 (1.6-8.9) K/mcL BMP 11/29/16 03:20 Sodium 140 Potassium 4.5 Chloride 98 Carbon Dioxide 28 BUN 65 H D Creatinine 7.07 H Glucose 95 Calcium 9.6 - ABG Interpretation ABG results: PT/INR, D-dimer PT 31.3 Seconds (9.4-12.1) H 11/29/16 03:20 Consult Discharge Plan - Plan Referrals: [facility] [Outside] - 12/08/16 1:30 pm <[facility] - Last Filed: 11/29/16 17:37> Date of Encounter: 11/29/16 - Assessment and plan (1) Generalized weakness Current Visit: Yes Status: Acute (2) HCAP (healthcare-associated pneumonia) Current Visit: No Status: Acute (3) ESRD (end stage renal disease) on dialysis Current Visit: No Status: Chronic (4) Primary amyloidosis of light chain type Current Visit: No Status: Chronic (5) Elevated troponin Current Visit: Yes Status: Acute (6) DVT prophylaxis Current Visit: No Status: Acute - Constitutional Vitals: Temp Pulse Resp BP Pulse Ox 98.7 F 118 16 111/58 93 L 11/29/16 15:57 11/29/16 15:57 11/29/16 15:57 11/29/16 15:57 11/29/16 15:57 Internal Medicine: Result - Labs CBC & Chem 7: 11/29/16 03:20 11/29/16 03:20 Labs: Short CBC 11/29/16 Range/Units 03:20 WBC 10.9 (4.3-11.1) K/mcL Hgb 8.4 L (12.9-16.9) g/dL Hct 25.7 L (37.5-50.1) % Plt Count 461 H (140-400) K/mcL Neutrophils # 7.9 (1.6-8.9) K/mcL BMP 11/29/16 03:20 Sodium 140 Potassium 4.5 Chloride 98 Carbon Dioxide 28 BUN 65 H D Creatinine 7.07 H Glucose 95 Calcium 9.6 - ABG Interpretation ABG results: PT/INR, D-dimer PT 31.3 Seconds (9.4-12.1) H 11/29/16 03:20 - Attending Attestation I examined this patient and my medical decision-making was reviewed with the CHIEF DEPUTY CLERK/BAILIFF/PA/Advanced Practice Nurse/Resident Physician. I agree with the documented findings, disposition and treatment plan as described except to the extent set forth below. ESRD on HD with amyloidosis. Stable. Will get chest CT.
--- NOTE | 2016-11-29 11:41 | Nephrology Progress Note ---
Date of Encounter: 11/29/16 Time of Encounter: 10:30 - Assessment and Plan (1) Anemia Status: Chronic Hgb noted low likely multifactorial receives EPO in outpatient HD, will monitor Qualifiers: Anemia type: unspecified type Qualified Code(s): D64.9 - Anemia, unspecified (2) ESRD (end stage renal disease) on dialysis Status: Chronic Continue HD with UF goal of 2-3kg. Patient does not have any signs of volume overload at this time Lytes stable Subjective Interval history: Pt seen and examined on HD still with coutgh and a little SOB Objective - Vital Signs Vital signs: Vital Signs Temp Pulse Resp BP Pulse Ox 11/29/16 09:30 98 F 18 120/62 11/29/16 07:58 18 96 11/29/16 07:57 98.0 F 102 16 132/72 94 L 11/29/16 05:02 98.1 F 92 17 115/61 95 11/29/16 01:20 98.3 F 93 17 118/63 94 L 11/28/16 22:49 18 94 L 11/28/16 20:16 98.0 F 98 18 137/62 94 L 11/28/16 17:18 97.8 F 96 18 130/70 91 L 11/28/16 14:55 16 100 11/28/16 12:57 98.7 F 99 17 132/64 95 Intake and Output 11/28/16 11/29/16 11/29/16 23:59 07:59 15:59 Intake Total 500 / 500 Balance 500 / 500 Intake: Oral 0 / 0 Intake, Rinseback and 500 / 500 Flushes Other: Weight 65.034 kg Blood Glucose* 135 98 Hemodialysis Net Fluid 0 Removed (mL) Patient Weight 11/29/16 23:59 Weight 65.034 kg - General Appearance General appearance: Present: chronically ill (NAD) EENT: Present: ATNC, mucous membranes moist Neck: Present: supple Additional Comments: good areation ant bilat Cardiology: Present: no edema, normal S1, normal S2 Gastrointestinal: Present: no tenderness, no guarding Integumentary: Present: warm and dry Neurologic: Present: no focal deficit Musculoskeletal: Present: no deformities Psychiatric: Present: mood/affect appropriate - Lab 12/01/16 04:13 12/01/16 04:13 Most recent lab results Calcium 9.6 mg/dL (8.6-10.8) 11/29/16 03:20 Phosphorus 4.7 mg/dL (2.3-4.7) 11/29/16 03:20 Magnesium 2.0 mg/dL (1.6-2.6) 11/28/16 07:01 Consult Discharge Plan - Plan Instructions: Heart Failure (DC) Referrals: [facility] [Outside] - 12/08/16 1:30 pm (Please follow up as schedule..) Prescriptions: Benzonatate [Tessalon] 200 mg PO TID PRN #20 capsule PRN Reason: Cough
[2016-11-29] MEDS ORDERED: Levofloxacin 500 MG/100 ML 500 MG/100 ML BAG IVPB SCH (16:00)
[2016-11-29] MEDS: *HR* Warfarin 5 MG TABLET PO SCH (16:45)
[2016-11-30] MEDS: Benzonatate 100 MG CAPSULE PO PRN ×3 (00:20→21:36)
[2016-11-30 06:35] LABS: Hematocrit 26.6 % (37.5-50.1); Hemoglobin 8.6 g/dL (12.9-16.9); Mean Corpuscular HGB Conc 32.3 g/dL (31.6-35.5); Mean Corpuscular Hemoglobin 31.2 pg (28.0-33.3); Mean Corpuscular Volume 96.4 fL (83.0-100.0); Mean Platelet Volume 11.5 fL (9.4-12.4); Nucleated Red Blood Cells 0.4 /100 WBC (0); Platelet Count 483 K/mcL (140-400); Red Blood Count 2.76 M/mcL (4.19-5.50); Red Cell Distribution Width 18.4 % (11.5-14.5)
[2016-11-30 06:38] LABS: INR 3.4; Monocytes # 1.9 K/mcL (0.0-1.3); Prothrombin Time 37.8 Seconds (9.4-12.1)
[2016-11-30 06:49] LABS: Calcium 9.5 mg/dL (8.6-10.8); Potassium 4.3 mEq/L (3.5-4.5)
[2016-11-30 07:08] LABS: Anisocytosis 2+ (Not Present); Basophils # 0.2 K/mcL (0.0-0.2); Hypochromasia Present (Not Present); Lymphocytes # 0.4 K/mcL (0.6-4.6); Macrocytosis Present (Not Present); Microcytosis Present (Not Present); Neutrophils # 6.1 K/mcL (1.6-8.9)
--- NOTE | 2016-11-30 08:09 | Internal Med Progress Note ---
<Peyman Varela - Last Filed: 11/30/16 15:03> Date of Encounter: 11/30/16 Time of Encounter: 08:00 - Assessment and plan (1) Bilateral pleural effusion Current Visit: Yes Status: Acute Assessment and plan: The patient would fit criteria for Healthcare-associated pneumonia given his last hospitalization, ESRD on HD. CXR reviewed, with mild bilateral pleural effusions, no definitive focal infiltrate. Sputum does not fit criteria for Cx. Finish last dose Levaquin for 11/30/16. BC x 2 obtained on 11/28/15, negative He has persistent productive cough, and amyloidosis is documented to manifest tracheobronchial infiltration, persistent pleural effusions., parenchymal nodules, alveolar deposits. Has returned nearly to dry weight following dialysis sessions Chest CT 11/29/16 15:28 IMPRESSION: Improved aeration in the left upper lobe and lingula with decreased areas of mixed attenuation and septal thickening. Partial re-expansion of both lower lobes. Small-moderate right pleural effusion mildly increased in size. Small left pleural effusion decreased in size. Stable 8 mm subpleural nodule in the right upper lobe. Scattered tree-in-bud opacities likely infectious/ inflammatory. Persistent mediastinal/hilar adenopathy, majority partially calcified. Discussed with pulmonology team, appreciate recs. Anticipate thoracentesis for characterization of pleural fluid. (2) Generalized weakness Current Visit: Yes Status: Acute Assessment and plan: The patient was admitted 11/27/16 due to generalized weakness, persistent cough in the setting of multiple comorbid diseases, including amyloidosis and end- stage renal disease on hemodialysis. CXR reviewed, with mild bilateral pleural effusions, no definitive focal infiltrate. Sputum obtained does not meet criteria for culture. Exam with coughing spells, but without crackles. Appreciate PT/OT/SW input for appropriate patient placement, per documentation agree with HH. Patient's son arrived 11/30/16 and is inquiring about ECF. I discussed the patient 's functional status and documented PT/OT evaluations that disclose he is functional for HH. (3) ESRD (end stage renal disease) on dialysis Current Visit: No Status: Chronic Assessment and plan: Follows [facility] MWF. Appreciate them following. (4) Elevated troponin Current Visit: No Status: Acute Assessment and plan: Chronic in setting of ESRD on HD. No angina or anginal equivalents. 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 (6) DVT prophylaxis Current Visit: No Status: Acute Assessment and plan: INR therapeutic on coumadin. - Subjective Interval history: Patient seen/eval, at bedside, sitting up eating breakfast. He affirms that cough is still persistent, some greenish phlegm. He denies any fever, no chills, no night sweats. He would like pulmonary team to evaluate him. Discussed CT Chest results. He does affirm occasional left-sided pleurisy, but no other chest pain/pressure. - Constitutional Vitals: Temp Pulse Resp BP Pulse Ox 98.4 F 102 18 129/68 95 11/30/16 07:03 11/30/16 07:03 11/30/16 07:03 11/30/16 07:03 11/30/16 07:03 General appearance: Present: disheveled, mild distress, A&O X 3, underweight - Head Head exam: Present: atraumatic, normocephalic - Eye Eye exam: Present: EOMI, sclera anicteric - ENT ENT exam: Present: mucous membranes moist - Neck Neck exam general surgery: Present: supple, trachea midline - Respiratory Respiratory exam: Present: decreased breath sounds (diminished R. base), rhonchi (scant ronchi). Absent: accessory muscle use - Cardiovascular Cardiovascular exam: Present: +S1, +S2. Absent: JVD Additional comments: Right chest permacath, cdi - GI/Abdominal GI/Abdominal exam: Present: soft, no peritoneal signs. Absent: tenderness - Extremities Exam Extremities exam: Present: pedal edema (trace if any, much improved from previous), warm, radial pulses palpable and symetrical - Neurological Exam Neurological exam: Present: strengths equal and symetr throughout. Absent: facial droop, speech deficit Internal Medicine: Result - Labs CBC & Chem 7: 11/30/16 05:55 11/30/16 05:55 Labs: Short CBC 11/30/16 Range/Units 05:55 WBC 9.6 (4.3-11.1) K/mcL Hgb 8.6 L (12.9-16.9) g/dL Hct 26.6 L (37.5-50.1) % Plt Count 483 H (140-400) K/mcL Neutrophils # 6.1 (1.6-8.9) K/mcL BMP 11/30/16 05:55 Sodium 143 Potassium 4.3 Chloride 100 Carbon Dioxide 35 H BUN 29 H D Creatinine 4.51 H Glucose 82 Calcium 9.5 - ABG Interpretation ABG results: PT/INR, D-dimer PT 37.8 Seconds (9.4-12.1) H 11/30/16 05:55 - Impressions Impressions Chest CT 11/29/16 15:28 IMPRESSION: Improved aeration in the left upper lobe and lingula with decreased areas of mixed attenuation and septal thickening. Partial re-expansion of both lower lobes. Small-moderate right pleural effusion mildly increased in size. Small left pleural effusion decreased in size. Stable 8 mm subpleural nodule in the right upper lobe. Scattered tree-in-bud opacities likely infectious/ inflammatory. Persistent mediastinal/hilar adenopathy, majority partially calcified. D/ / Alexander Baldwin MD / Alexander Baldwin MD Interpreting Provider: Alexander Baldwin MD Consult Discharge Plan - Plan Referrals: [facility] [Outside] - 12/08/16 1:30 pm (Please follow up as schedule..) <[place] Mon[place] - Last Filed: 11/30/16 18:07> Date of Encounter: 11/30/16 - Assessment and plan (1) Generalized weakness Current Visit: Yes Status: Acute (2) HCAP (healthcare-associated pneumonia) Current Visit: No Status: Acute (3) ESRD (end stage renal disease) on dialysis Current Visit: No Status: Chronic (4) Primary amyloidosis of light chain type Current Visit: No Status: Chronic (5) Elevated troponin Current Visit: Yes Status: Acute (6) DVT prophylaxis Current Visit: No Status: Acute - Constitutional Vitals: Temp Pulse Resp BP Pulse Ox 98.2 F 96 18 136/71 98 11/30/16 16:25 11/30/16 16:25 11/30/16 16:25 11/30/16 16:25 11/30/16 16:25 Internal Medicine: Result - Labs CBC & Chem 7: 11/30/16 05:55 11/30/16 05:55 Labs: Short CBC 11/30/16 Range/Units 05:55 WBC 9.6 (4.3-11.1) K/mcL Hgb 8.6 L (12.9-16.9) g/dL Hct 26.6 L (37.5-50.1) % Plt Count 483 H (140-400) K/mcL Neutrophils # 6.1 (1.6-8.9) K/mcL BMP 11/30/16 05:55 Sodium 143 Potassium 4.3 Chloride 100 Carbon Dioxide 35 H BUN 29 H D Creatinine 4.51 H Glucose 82 Calcium 9.5 - ABG Interpretation ABG results: PT/INR, D-dimer PT 37.8 Seconds (9.4-12.1) H 11/30/16 05:55 - Impressions Impressions Chest CT 11/29/16 15:28 IMPRESSION: Improved aeration in the left upper lobe and lingula with decreased areas of mixed attenuation and septal thickening. Partial re-expansion of both lower lobes. Small-moderate right pleural effusion mildly increased in size. Small left pleural effusion decreased in size. Stable 8 mm subpleural nodule in the right upper lobe. Scattered tree-in-bud opacities likely infectious/ inflammatory. Persistent mediastinal/hilar adenopathy, majority partially calcified. D/ / Alexander Baldwin MD / Alexander Baldwin MD Interpreting Provider: Alexander Baldwin MD - Attending Attestation I examined this patient and my medical decision-making was reviewed with the MARINE PIPEFITTER HELPER/PA/Advanced Practice Nurse/Resident Physician. I agree with the documented findings, disposition and treatment plan as described except to the extent set forth below. Effusion under evaluation, for thoracentesis tomorrow, hold coumadin.
[2016-11-30] MEDS: FLUTICASONE PROPIONATE IH SCH (08:41)
[2016-11-30] MEDS: Calcium Acetate 667 MG CAPSULE PO SCH ×3 (08:51→17:18)
[2016-11-30] MEDS: Finasteride 5 MG TABLET PO SCH (08:52)
[2016-11-30] MEDS: Ascorbic Acid 500 MG TABLET PO SCH (08:52)
[2016-11-30] MEDS: Aspirin Enteric Coated 81 MG Tablet PO SCH (08:52)
--- NOTE | 2016-11-30 10:04 | Nephrology Progress Note ---
<Reyna Terrell - Last Filed: 11/30/16 10:14> Date of Encounter: 11/30/16 Time of Encounter: 09:54 - Assessment and Plan (1) ESRD (end stage renal disease) on dialysis Status: Chronic Plan for HD tomorrow Continue renal diet and fluid restrictions Avoid nephrotoxins if possible (2) Generalized weakness Status: Acute per primary team (3) Shortness of breath Status: Acute Patient states they are doing a thoracentesis today but nothing seen yet in notes re: this procedure There is a pulmonology consult put in for patient today. (4) Primary amyloidosis of light chain type Status: Chronic per primary team/oncology team Subjective Principal diagnosis: Cough, ESRD on dialysis Interval history: Patient seen and examined. Doing better but continues with cough. Objective - Vital Signs Vital signs: Vital Signs Temp Pulse Resp BP Pulse Ox 11/30/16 08:22 95 11/30/16 07:03 98.4 F 102 18 129/68 95 11/30/16 04:06 98.5 F 107 20 128/69 94 L 11/30/16 00:35 98.6 F 101 20 113/60 94 L 11/29/16 20:22 98.4 F 107 20 114/64 96 11/29/16 15:57 98.7 F 118 16 111/58 93 L 11/29/16 13:15 98 F 16 117/49 11/29/16 13:00 103/55 11/29/16 12:45 101/52 11/29/16 12:30 106/55 11/29/16 12:15 97/51 11/29/16 12:00 99/56 11/29/16 11:45 89/48 11/29/16 11:30 93/49 11/29/16 11:15 100/47 11/29/16 11:00 100/53 11/29/16 10:45 100/49 11/29/16 10:30 97/47 11/29/16 10:15 103/49 11/29/16 10:00 114/56 Intake and Output 11/29/16 11/30/16 11/30/16 23:59 07:59 15:59 Intake Total 420 / 420 100 / 100 520 / 520 Output Total 0 / 0 0 / 0 0 / 0 Balance 420 / 420 100 / 100 520 / 520 Intake: Oral 420 / 420 100 / 100 520 / 520 Output: Urine 0 / 0 0 / 0 0 / 0 Other: Meal Breakfast Percent of Meal Consumed 100% Weight 63.775 kg Blood Glucose* 131 89 Patient Weight 11/30/16 23:59 Weight 63.775 kg - General Appearance General appearance: Present: well-developed, well-nourished, appears started age EENT: Present: ATNC, mucous membranes moist, hearing intact, vision intact Neck: Present: supple Respiratory: Present: clear Cardiology: Present: no edema, normal S1, normal S2 Gastrointestinal: Present: no tenderness, no guarding Integumentary: Present: warm and dry Neurologic: Present: alert and oriented x3 Musculoskeletal: Present: no deformities Psychiatric: Present: mood/affect appropriate, cooperative - Lab 11/30/16 05:55 11/30/16 05:55 Most recent lab results Calcium 9.5 mg/dL (8.6-10.8) 11/30/16 05:55 Phosphorus 4.7 mg/dL (2.3-4.7) 11/29/16 03:20 Magnesium 2.0 mg/dL (1.6-2.6) 11/28/16 07:01 Consult Discharge Plan - Plan Instructions: Heart Failure (DC) Referrals: [facility] [Outside] - 12/08/16 1:30 pm (Please follow up as schedule..) Prescriptions: Benzonatate [Tessalon] 200 mg PO TID PRN #20 capsule PRN Reason: Cough <Frandy Almeida - Last Filed: 12/14/16 15:28> Date of Encounter: 11/30/16 Objective - Lab 12/01/16 04:13 12/01/16 04:13 Most recent lab results Calcium 9.7 mg/dL (8.6-10.8) 12/01/16 04:13 Phosphorus 4.7 mg/dL (2.3-4.7) 11/29/16 03:20 Magnesium 2.0 mg/dL (1.6-2.6) 11/28/16 07:01 - Attending Attestation I examined this patient and my medical decision-making was reviewed with the BUILD AUTOMATION ENGINEER/PA/Advanced Practice Nurse/Resident Physician. I agree with the documented findings, disposition and treatment plan as described except to the extent set forth below.
--- NOTE | 2016-11-30 16:53 | Pulmonology Consult Note ---
<Ifeanyi Pillai - Last Filed: 11/30/16 16:41> Date of Encounter: 11/30/16 Time of Encounter: 16:41 Assessment and Plan (1) Bilateral pleural effusion Current Visit: Yes Status: Acute Right greater than left. Possible etiologies include infectious, inflammatory, malignant, or related to underlying systemic disorder such as heart failure end- stage renal disease. At this time suspect it is likely due to fluid overload. Fluid removal on dialysis remain the mainstay of treatment however the patient would likely benefit from thoracentesis. We will hold the patient's Coumadin tonight and plan for thoracentesis tomorrow. This is been explained to the patient including the risks and benefits of the procedure and he agrees to proceed. Fluid will then be sent for analysis, culture, cytology. History of Present Illness Consult date: 11/30/16 Requesting physician: Peyman Varela Reason for consult: pleural effusion Chief complaint: Cough History of present illness: Patient is a 76-year-old male with history of hemorrhoid doses and end-stage renal disease and atrial fibrillation presents with cough. Patient states she has had a persistent cough over the last several weeks. He states he occasionally coughs up white phlegm. He does say that he occasionally gets short of breath with exertion but he does not feel that this is worse over the last several weeks. He denies any fever or chills chest pain, nausea, vomiting , diarrhea. Past Med Surg Social Fam HX - Past Medical History Medical history: arthritis, atrial fibrillation, CHF, dialysis, GERD, hyperlipidemia, osteoporosis, renal disease, valvular heart disease, other Psychiatric history: no psych history - Past Surgical History Surgical History: appendectomy - Social History Smoking Status: Former smoker Smokeless Tobacco Status: No Alcohol use: none Drug use: none Medications and Allergies Acetaminophen [Tylenol Arthritis] 650 mg PO BID 07/26/16 [History] Aspirin [Lo-Dose Aspirin EC] 81 mg PO DAILY 07/26/16 [History] Calcium Acetate [Phos-LO] 667 mg PO TIDWM 07/26/16 [History] Docusate [Colace] 100 mg PO BID 07/26/16 [History] EPINEPHrine [Epipen] 0.3 mg IM ONCE PRN 07/26/16 [History] Finasteride [Proscar] 5 mg PO DAILY 07/26/16 [History] Fluticasone Propionate [Flovent Diskus] 2 spray IH DAILY 07/26/16 [History] Furosemide [Lasix] 20 mg PO DAILY 07/26/16 [History] Metoprolol [Lopressor] 25 mg PO BID 07/26/16 [History] Omeprazole [PriLOSEC] 20 mg PO DAILY 07/26/16 [History] Simvastatin [Zocor] 40 mg PO HS 07/26/16 [History] Sodium Bicarbonate 650 mg PO BID 07/26/16 [History] Vit A/C/E AC/Znox/Cupric Oxide [Eye Vitamin-Minerals Tablet] 2 each PO DAILY [History] Warfarin [Coumadin] 2.5 mg PO SUTUTHSA 07/26/16 [History] Warfarin [Coumadin] 5 mg PO MOWEFR 07/26/16 [History] Polyvinyl Alcohol/Povidone/Pf [Refresh Classic Eye Drops] 1 drop OP DAILY [History] Ascorbic Acid [Vitamin C] 500 mg PO DAILY #30 tablet 09/08/16 [Rx] Ferrous Sulfate 325 mg PO DAILY #30 tablet 09/08/16 [Rx] HYDROcodone/Acet 5/325 mg [[place] 5-325 mg] 1 tab PO Q6H PRN #10 tab 10/13/16 [Rx ] Oxygen 2 l NS AD 10/13/16 [History] Polyethylene Glycol 3350 [MiraLAX] 17 gm PO DAILY 11/20/16 [History] Valacyclovir HCl [Valacyclovir] 500 mg PO DAILY 11/20/16 [History] Allergies Amoxicillin Allergy (Verified 11/20/16 16:25) Swelling of Lip/Tongue/Throat Penicillins [PCN] Allergy (Verified 11/20/16 12:37) Anaphylaxis venom-honey bee [bee venom (honey bee)] Allergy (Verified 11/20/16 12:37) Anaphylaxis All Systems: A 10-system review of systems was performed and is negative for pertinent findings except as documented above in the HPI. - Constitutional Constitutional: no chills, no fever(s) - EENT Nose, mouth and throat: no sinus pain, no sinus pressure - Cardiovascular Cardiovascular: dyspnea on exertion, irregular heart rhythm, no chest pain, no dyspnea, no edema, no rapid heart rate - Respiratory Respiratory: cough, dyspnea, no hemoptysis, no chest congestion, no excessive phlegm production, no change in phlegm color - Gastrointestinal Gastrointestinal: no abdominal pain, no nausea, no vomiting - Genitourinary Genitourinary: no urinary frequency, no urinary hesitancy, no urinary incontinence, no urinary urgency - Musculoskeletal Musculoskeletal: no weakness, no tingling - Neurological Neurological: no dizziness, no numbness, no tingling, no weakness Physical Examination Vital Signs: Vital Signs, Last 4 Hours Temp Pulse Resp BP Pulse Ox 11/30/16 16:25 98.2 F 96 18 136/71 98 General appearance: no acute distress ENT: oropharynx moist Effort: normal Inspection: normal Auscultation: right: diminished breath sounds Cardiovascular: irregular rhythm Gastrointestinal: normoactive bowel sounds, soft, non-tender, non-distended Extremities: no cyanosis, no edema, no clubbing, other (Palpable thrill in the left antecubital area.) normal mental status, non-focal exam Results - Laboratory Findings CBC and BMP: 11/30/16 05:55 11/30/16 05:55 PT/INR, D-dimer PT 37.8 Seconds (9.4-12.1) H 11/30/16 05:55 Abnormal lab findings: Abnormal lab results RBC 2.76 M/mcL (4.19-5.50) L 11/30/16 05:55 Hgb 8.6 g/dL (12.9-16.9) L 11/30/16 05:55 Hct 26.6 % (37.5-50.1) L 11/30/16 05:55 RDW 18.4 % (11.5-14.5) H 11/30/16 05:55 Plt Count 483 K/mcL (140-400) H 11/30/16 05:55 Lymphocytes # 0.4 K/mcL (0.6-4.6) L 11/30/16 05:55 Monocytes # 1.9 K/mcL (0.0-1.3) H 11/30/16 05:55 Eosinophils # 1.0 K/mcL (0.0-0.6) H 11/30/16 05:55 Nucleated RBCs/100 WBC 0.4 /100 WBC (0) H 11/30/16 05:55 Platelet Estimate Increased (Normal) H 11/28/16 07:01 Hypochromasia Present (Not Present) A 11/30/16 05:55 Anisocytosis 2+ (Not Present) A 11/30/16 05:55 Microcytosis Present (Not Present) A 11/30/16 05:55 Macrocytosis Present (Not Present) A 11/30/16 05:55 Spherocytes 1+ (Not Present) A 11/28/16 07:01 Target Cells 1+ (Not Present) A 11/28/16 07:01 PT 37.8 Seconds (9.4-12.1) H 11/30/16 05:55 APTT 38.1 Seconds (26.0-36.0) H 11/27/16 12:53 Carbon Dioxide 35 mEq/L (19-29) H 11/30/16 05:55 BUN 29 mg/dL (8-26) H D 11/30/16 05:55 Creatinine 4.51 mg/dL (0.72-1.25) H 11/30/16 05:55 Est GFR ( Amer) 15 (> 60) L 11/30/16 05:55 Est GFR (Non-Af Amer) 13 (> 60) L 11/30/16 05:55 Calculated Osmolality 301 (280-300) H 11/30/16 05:55 Troponin I 0.15 ng/mL (0-0.03) H* 11/27/16 12:53 B-Natriuretic Peptide 2434 pg/mL (0-100) H 11/28/16 07:01 - Microbiology Findings Microbiology Findings: Microbiology, Last 48 Hours 11/28/16 09:40 Blood Culture - Preliminary Peripheral Venipuncture No growth. 11/28/16 09:40 Blood Culture - Preliminary Peripheral Venipuncture No growth. - Clinical Findings Intake & Output: Intake & Output 11/30/16 11/30/16 11/30/16 07:59 15:59 23:59 Intake Total 100 / 100 520 / 520 Output Total 0 / 0 0 / 0 Balance 100 / 100 520 / 520 Weight 63.775 kg Consult Discharge Plan - Plan Referrals: [facility] [Outside] - 12/08/16 1:30 pm (Please follow up as schedule..) <Mirela Kaur - Last Filed: 11/30/16 21:31> Date of Encounter: 01/05/17 All Systems: A 10-system review of systems was performed and is negative for pertinent findings except as documented above in the HPI. Results - Laboratory Findings CBC and BMP: 11/30/16 05:55 11/30/16 05:55 PT/INR, D-dimer PT 37.8 Seconds (9.4-12.1) H 11/30/16 05:55 Abnormal lab findings: Abnormal lab results RBC 2.76 M/mcL (4.19-5.50) L 11/30/16 05:55 Hgb 8.6 g/dL (12.9-16.9) L 11/30/16 05:55 Hct 26.6 % (37.5-50.1) L 11/30/16 05:55 RDW 18.4 % (11.5-14.5) H 11/30/16 05:55 Plt Count 483 K/mcL (140-400) H 11/30/16 05:55 Lymphocytes # 0.4 K/mcL (0.6-4.6) L 11/30/16 05:55 Monocytes # 1.9 K/mcL (0.0-1.3) H 11/30/16 05:55 Eosinophils # 1.0 K/mcL (0.0-0.6) H 11/30/16 05:55 Nucleated RBCs/100 WBC 0.4 /100 WBC (0) H 11/30/16 05:55 Platelet Estimate Increased (Normal) H 11/28/16 07:01 Hypochromasia Present (Not Present) A 11/30/16 05:55 Anisocytosis 2+ (Not Present) A 11/30/16 05:55 Microcytosis Present (Not Present) A 11/30/16 05:55 Macrocytosis Present (Not Present) A 11/30/16 05:55 Spherocytes 1+ (Not Present) A 11/28/16 07:01 Target Cells 1+ (Not Present) A 11/28/16 07:01 PT 37.8 Seconds (9.4-12.1) H 11/30/16 05:55 APTT 38.1 Seconds (26.0-36.0) H 11/27/16 12:53 Carbon Dioxide 35 mEq/L (19-29) H 11/30/16 05:55 BUN 29 mg/dL (8-26) H D 11/30/16 05:55 Creatinine 4.51 mg/dL (0.72-1.25) H 11/30/16 05:55 Est GFR ( Amer) 15 (> 60) L 11/30/16 05:55 Est GFR (Non-Af Amer) 13 (> 60) L 11/30/16 05:55 POC Glucose 137 (58-89) H 11/30/16 19:53 Calculated Osmolality 301 (280-300) H 11/30/16 05:55 Troponin I 0.15 ng/mL (0-0.03) H* 11/27/16 12:53 B-Natriuretic Peptide 2434 pg/mL (0-100) H 11/28/16 07:01 - Microbiology Findings Microbiology Findings: Microbiology, Last 48 Hours 11/28/16 09:40 Blood Culture - Preliminary Peripheral Venipuncture No growth. 11/28/16 09:40 Blood Culture - Preliminary Peripheral Venipuncture No growth. - Clinical Findings Intake & Output: Intake & Output 11/30/16 11/30/16 11/30/16 07:59 15:59 23:59 Intake Total 100 / 100 520 / 520 120 / 120 Output Total 0 / 0 0 / 0 Balance 100 / 100 520 / 520 120 / 120 Weight 63.775 kg - Attending Attestation I examined this patient and my medical decision-making was reviewed with the OVEN DUMPER/PA/Advanced Practice Nurse/Resident Physician. I agree with the documented findings, disposition and treatment plan as described except to the extent set forth below. Patient seen and examined and reviewed labs and images with the resident. Patient has CKD and fluid could be secondary to the underlying renal disease or cardiac disease. Diminished breath sound in the bases and dull on percussion. Irregular s1 and s2. No acute distress AOX 3 Due to Coumadin coagulopathy, will post pond the throacentesis. All risks, alternatives and benefits of the procedure explained to patient and he agreed to have it done. Thanks for the consult, will arrange the procedure.
[2016-12-01 04:34] LABS: Basophils # 0.2 K/mcL (0.0-0.2); Basophils % 2.2 %; Eosinophils # 0.7 K/mcL (0.0-0.6); Eosinophils % 7.3 %; Hematocrit 26.6 % (37.5-50.1); Hemoglobin 8.7 g/dL (12.9-16.9); Immature Granulocytes % 0.3 % (0-4); Lymphocytes # 0.8 K/mcL (0.6-4.6); Lymphocytes % 8.7 %; Mean Corpuscular HGB Conc 32.7 g/dL (31.6-35.5); Mean Corpuscular Hemoglobin 31.1 pg (28.0-33.3); Mean Platelet Volume 11.4 fL (9.4-12.4); Monocytes # 1.6 K/mcL (0.0-1.3); Monocytes % 17.2 %; Nucleated Red Blood Cells 0.4 /100 WBC (0); Platelet Count 468 K/mcL (140-400); Red Cell Distribution Width 17.9 % (11.5-14.5); Segmented Neutrophils % 64.3 %
[2016-12-01 04:39] LABS: INR 2.9; Prothrombin Time 32.8 Seconds (9.4-12.1)
[2016-12-01 04:46] LABS: Calcium 9.7 mg/dL (8.6-10.8); Potassium 4.6 mEq/L (3.5-4.5)
[2016-12-01] MEDS ORDERED: 0.9 % Sodium Chloride 250 ML IV PRN (08:39)
--- NOTE | 2016-12-01 09:04 | Procedure Note ---
<Ifeanyi Pillai - Last Filed: 12/01/16 08:59> Date of procedure: 12/01/16 Pre-op diagnosis: Pleural Effusion Post-op diagnosis: same Procedure: Written consent was obtained. Timeout was performed. The right posteriolateral chest wall was examined using ultrasound and a large pleural effusion was identified. The site was marked and cleaned and draped in usual sterile fashion. 1% lidocaine was administered to the skin and subcutaneous tissues down to the pleura. The bret in the skin was made. The catheter over needle apparatus was advanced and the skin and slowly advanced into the pleural space. Clear straw colored fluid was returned. The needle was removed and approximately 1 L of clear straw colored pleural fluid was withdrawn. The fluid was sent to the lab for analysis. The catheter was withdrawn and no bleeding was noted. Postprocedure chest x-ray is pending. The patient tolerated the procedure well and there are no immediate complications. Anesthesia: local Surgeon: Ifeanyi Pillai Estimated blood loss (cc): 0 IV fluids (cc): 0 Pathology: other (Fluid analysis, microbiology, cytology sent for analysis) Condition: stable Disposition: floor <Mirela Kaur - Last Filed: 12/01/16 16:36> Procedure: I have personally supervised Dr. Pillai during the entire procedure.
--- NOTE | 2016-12-01 09:04 | Internal Med Progress Note ---
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 He just had bedside thoracentesis performed. About 1L. drained, sent for analysis. Patient reports breathing is much better, there is no pleurisy, and less sensation of pressure that he felt recently. He denies any fever, chills, substernal chest discomfort. Cough is still present but improved. - Constitutional Vitals: Temp Pulse Resp BP Pulse Ox 98.1 F 94 18 128/63 97 12/01/16 07:41 12/01/16 07:41 12/01/16 07:41 12/01/16 07:41 12/01/16 07:41 General appearance: Present: disheveled, mild distress, A&O X 3, underweight Internal Medicine: Result - Labs CBC & Chem 7: 12/01/16 04:13 12/01/16 04:13 Labs: Short CBC 12/01/16 Range/Units 04:13 WBC 9.3 (4.3-11.1) K/mcL Hgb 8.7 L (12.9-16.9) g/dL Hct 26.6 L (37.5-50.1) % Plt Count 468 H (140-400) K/mcL Neutrophils # 6.0 (1.6-8.9) K/mcL BMP 12/01/16 04:13 Sodium 139 Potassium 4.6 H Chloride 98 Carbon Dioxide 31 H BUN 49 H D Creatinine 6.43 H Glucose 88 Calcium 9.7 - ABG Interpretation ABG results: PT/INR, D-dimer PT 32.8 Seconds (9.4-12.1) H 12/01/16 04:13 Consult Discharge Plan - Plan Referrals: [facility] [Outside] - 12/08/16 1:30 pm (Please follow up as schedule..)
[2016-12-01] MEDS: Calcium Acetate 667 MG CAPSULE PO SCH ×3 (09:08→16:52)
[2016-12-01] MEDS: FLUTICASONE PROPIONATE IH SCH (09:11)
[2016-12-01] MEDS: Finasteride 5 MG TABLET PO SCH (09:12)
[2016-12-01] MEDS: Ascorbic Acid 500 MG TABLET PO SCH (09:13)
[2016-12-01] MEDS: Aspirin Enteric Coated 81 MG Tablet PO SCH (09:13)
[2016-12-01] MEDS: Benzonatate 100 MG CAPSULE PO PRN (09:16)
[2016-12-01 09:37] LABS: Lactate Dehydrogenase 210 Units/L (159-327)
[2016-12-01 09:56] LABS: Amylase,Pleural Fluid 32 Units/L (No Ref Range); Glucose,Pleural Fluid 89 mg/dL (No Ref Range); LDH,Pleural Fluid 89 Units/L (No Ref Range); RBC,Pleural Fluid < 0.002 M/mcL
[2016-12-01 10:03] LABS: Total Protein,Pleural Fluid 1.8 g/dL (No Ref Range)
[2016-12-01] MEDS ORDERED: 0.9 % Sodium Chloride 2,000 ML ONE (10:45)
[2016-12-01 11:00] LABS: Appearance of Pleural Fl Clear (Clear)
--- NOTE | 2016-12-01 13:50 | Nephrology Progress Note ---
Date of Encounter: 12/01/16 Time of Encounter: 13:46 - Assessment and Plan (1) Generalized weakness Current Visit: Yes Status: Acute Per primary team. (2) Shortness of breath Current Visit: No Status: Acute Pulmonary consulted. (3) ESRD (end stage renal disease) on dialysis Current Visit: No Status: Chronic HD today. ON MWF schedule. (4) Primary amyloidosis of light chain type Current Visit: No Status: Chronic per primary team and oncology. Subjective Principal diagnosis: Cough, ESRD on dialysis Interval history: Patient seen and evaluated on dialysis. He has no new complaint. His cough is improved. Objective - Vital Signs Vital signs: Vital Signs Temp Pulse Resp BP Pulse Ox 12/01/16 12:55 106/54 12/01/16 12:40 98/59 12/01/16 12:25 101/58 12/01/16 12:10 94/55 12/01/16 11:55 93/54 12/01/16 11:40 117/63 12/01/16 11:25 112/58 12/01/16 11:10 118/66 12/01/16 10:55 102/56 12/01/16 10:40 110/62 12/01/16 10:25 108/56 12/01/16 09:00 97 12/01/16 07:41 98.1 F 94 18 128/63 97 12/01/16 04:00 98.4 F 92 16 130/68 94 L 12/01/16 00:00 98.3 F 99 16 133/72 95 11/30/16 20:00 98.2 F 81 16 117/57 92 L 11/30/16 16:25 98.2 F 96 18 136/71 98 Intake and Output 11/30/16 12/01/16 12/01/16 23:59 07:59 15:59 Intake Total 120 / 120 700 / 700 Output Total 250 / 250 0 / 0 Balance 120 / 120 -250 / -250 700 / 700 Intake: Oral 120 / 120 700 / 700 Output: Urine 250 / 250 0 / 0 Other: Meal Dinner Breakfast Percent of Meal Consumed 100% 100% Weight 63.8 kg Blood Glucose* 137 80 Hemodialysis Net Fluid 2419 Removed (mL) Patient Weight 12/01/16 23:59 Weight 63.8 kg - General Appearance General appearance: Present: well-developed, well-nourished EENT: Present: ATNC Neck: Present: supple Respiratory: Present: clear Cardiology: Present: regular rate Gastrointestinal: Present: no tenderness Integumentary: Present: warm and dry Neurologic: Present: alert and oriented x3 Musculoskeletal: Present: no cyanosis Psychiatric: Present: mood/affect appropriate - Lab 12/01/16 04:13 12/01/16 04:13 Most recent lab results Calcium 9.7 mg/dL (8.6-10.8) 12/01/16 04:13 Phosphorus 4.7 mg/dL (2.3-4.7) 11/29/16 03:20 Magnesium 2.0 mg/dL (1.6-2.6) 11/28/16 07:01 Consult Discharge Plan - Plan Referrals: [facility] [Outside] - 12/08/16 1:30 pm (Please follow up as schedule..)
--- NOTE | 2016-12-01 15:19 | Discharge Summary ---
<Peyman Varela - Last Filed: 12/01/16 16:13> Date of Encounter: 12/01/16 Time of Encounter: 15:16 - Discharge Diagnosis (1) Bilateral pleural effusion Priority: Primary Status: Acute (2) Generalized weakness Priority: Secondary Status: Chronic (3) ESRD (end stage renal disease) on dialysis Priority: Secondary Status: Chronic (4) Elevated troponin Priority: Secondary Status: Chronic (5) Primary amyloidosis of light chain type Priority: Secondary Status: Chronic (6) DVT prophylaxis Priority: Secondary Status: Acute - Discharge Medications Prescriptions: Benzonatate [Tessalon] 200 mg PO TID PRN #20 capsule PRN Reason: Cough Home Medications: Acetaminophen [Tylenol Arthritis] 650 mg PO BID 07/26/16 [History] Aspirin [Lo-Dose Aspirin EC] 81 mg PO DAILY 07/26/16 [History] Calcium Acetate [Phos-LO] 667 mg PO TIDWM 07/26/16 [History] Docusate [Colace] 100 mg PO BID 07/26/16 [History] EPINEPHrine [Epipen] 0.3 mg IM ONCE PRN 07/26/16 [History] Finasteride [Proscar] 5 mg PO DAILY 07/26/16 [History] Fluticasone Propionate [Flovent Diskus] 2 spray IH DAILY 07/26/16 [History] Furosemide [Lasix] 20 mg PO DAILY 07/26/16 [History] Metoprolol [Lopressor] 25 mg PO BID 07/26/16 [History] Omeprazole [PriLOSEC] 20 mg PO DAILY 07/26/16 [History] Simvastatin [Zocor] 40 mg PO HS 07/26/16 [History] Sodium Bicarbonate 650 mg PO BID 07/26/16 [History] Vit A/C/E AC/Znox/Cupric Oxide [Eye Vitamin-Minerals Tablet] 2 each PO DAILY [History] Warfarin [Coumadin] 2.5 mg PO SUTUTHSA 07/26/16 [History] Warfarin [Coumadin] 5 mg PO MOWEFR 07/26/16 [History] Polyvinyl Alcohol/Povidone/Pf [Refresh Classic Eye Drops] 1 drop OP DAILY [History] Ascorbic Acid [Vitamin C] 500 mg PO DAILY #30 tablet 09/08/16 [Rx] Ferrous Sulfate 325 mg PO DAILY #30 tablet 09/08/16 [Rx] HYDROcodone/Acet 5/325 mg [[place] 5-325 mg] 1 tab PO Q6H PRN #10 tab 10/13/16 [Rx ] Oxygen 2 l NS AD 10/13/16 [History] Polyethylene Glycol 3350 [MiraLAX] 17 gm PO DAILY 11/20/16 [History] Valacyclovir HCl [Valacyclovir] 500 mg PO DAILY 11/20/16 [History] Benzonatate [Tessalon] 200 mg PO TID PRN #20 capsule 12/01/16 [Rx] Allergies/Adverse Reactions: Allergies Amoxicillin Allergy (Verified 11/20/16 16:25) Swelling of Lip/Tongue/Throat Penicillins [PCN] Allergy (Verified 11/20/16 12:37) Anaphylaxis venom-honey bee [bee venom (honey bee)] Allergy (Verified 11/20/16 12:37) Anaphylaxis Procedures/tests Complete & Pending: Procedures Performed prior 72 hours Category Date Time Status CT chest w/o contrast [CT chest wo con] [CT] Routine Cat Scan 11/29/16 15:28 Completed Date of admission: 11/27/16 15:44 Primary care physician: Adolfo Tobias DO Consults: 11/27/16 16:15 Consult to Nutrition [CONS] Routine Comment: Consulting Provider: NUTRITION Reason for Dietary Consult: MST Score 11/29/16 08:30 Consult to Dialysis [CONS] ONCE 11/30/16 08:31 Consult to Pulmonology [CONS] Routine Consulting Provider: [facility] Reason for Consult: Pleural effusions and suspect infectious nodule in setting of systemic amyloidosis. Appreciate further recs. D/W resident Dr. Pillai. Patient request. Call Completed: Yes 12/01/16 08:45 Consult to Dialysis [CONS] ONCE Discharging clinician: [facility] Anticipated date of discharge: 12/01/16 - Patient Status Disposition: Home Health Service Condition: Fair Functional capacity at discharge: independent ambulation Overall status at discharge: patient is progressing back to baseline - Discharge Instructions Follow Up With: [facility] [Outside] - 12/08/16 1:30 pm (Please follow up as schedule..) - Diet and Activity Activity: as per physical therapy, wear oxygen at all times Diet: other (renal diet) Hospital course: Mr. Yang is a 76 year old male past medical history of end-stage renal disease on hemodialysis, amyloidosis, hypertension, patient was recently discharged from this facility to home with outpatient physical therapy. He would present with dyspnea and pleurisy on 11/27/16, prompting further evaluation. Initial concern for pneumonia on CXR, commenced with empiric antibiotic Levaquin. BC x2 negative, sputum culture negative. He would undergo his scheduled HD MWF with the [facility] while in- house. Amyloidosis is documented to manifest tracheobronchial infiltration, persistent pleural effusions, parenchymal nodules, alveolar deposits. His persistent symptoms prompted Chest CT, disclosing: Improved aeration in the left upper lobe and lingula with decreased areas of mixed attenuation and septal thickening. Partial re-expansion of both lower lobes. Small-moderate right pleural effusion mildly increased in size. Small left pleural effusion decreased in size. Stable 8 mm subpleural nodule in the right upper lobe. Scattered tree-in-bud opacities likely infectious/ inflammatory. Persistent mediastinal/hilar adenopathy, majority partially calcified. Pulmonary team consulted, with recommendation for US guided thoracentesis to obtain pleural fluid for analysis. Patient agreed to procedure. Approximately 1L clear straw-colored pleural fluid was withdrawn, sent for fluid analysis, microbiology, cytology. Characteristic consistent with transudate, pleural fluid negative for AFB, pleural fluid culture without bacteria observed. Post-procedure xray disclosing no pneumothorax. Patient did experience relief of pleurisy. PT/OT recommended for HH with PT/OT given his functional status. At time of discharge, patient was clinically improved, hemodynamically stable, progressing to baseline. He was advised to seek immediate medical attention for any new or worsening symptoms including but not limited to fever, chills, chest pain, dyspnea, pleurisy, nvd and he voiced understanding. - Time Spent with Patient Total time spent providing and/or coordinating discharge services: Greater than 30 minutes - Constitutional Vitals: Temp Pulse Resp BP Pulse Ox 97.2 F L 94 20 96/57 97 12/01/16 14:22 12/01/16 07:41 12/01/16 14:22 12/01/16 14:22 12/01/16 09:00 General appearance: Present: cooperative, A&O X 3, underweight - Head Head exam: Present: atraumatic, normocephalic - Eye Eye exam: Present: EOMI, sclera anicteric - ENT ENT exam: Present: mucous membranes moist - Neck Neck exam general surgery: Present: supple, trachea midline - Respiratory Respiratory exam: Present: rhonchi (scant ronchi, somewhat diminished R base). Absent: stridor, wheezes - Cardiovascular Cardiovascular exam: Present: +S1, +S2. Absent: JVD Additional comments: Right permacath, cdi - GI/Abdominal GI/Abdominal exam: Present: soft, no peritoneal signs. Absent: distended, tenderness - Extremities Exam Extremities exam: Present: pedal edema (trace), warm <MoniqueCasa R - Last Filed: 12/01/16 16:56> - Discharge Diagnosis (1) Generalized weakness Status: Chronic (2) HCAP (healthcare-associated pneumonia) Status: Acute (3) ESRD (end stage renal disease) on dialysis Status: Chronic (4) Primary amyloidosis of light chain type Status: Chronic (5) Elevated troponin Status: Acute (6) DVT prophylaxis Status: Acute Procedures/tests Complete & Pending: Procedures Performed prior 72 hours Category Date Time Status CT chest w/o contrast [CT chest wo con] [CT] Routine Cat Scan 11/29/16 15:28 Completed Date of admission: 11/27/16 15:44 Primary care physician: Adolfo Tobias DO Consults: 11/27/16 16:15 Consult to Nutrition [CONS] Routine Comment: Consulting Provider: NUTRITION Reason for Dietary Consult: MST Score 11/29/16 08:30 Consult to Dialysis [CONS] ONCE 11/30/16 08:31 Consult to Pulmonology [CONS] Routine Consulting Provider: [facility] Reason for Consult: Pleural effusions and suspect infectious nodule in setting of systemic amyloidosis. Appreciate further recs. D/W resident Dr. Pillai. Patient request. Call Completed: Yes 12/01/16 08:45 Consult to Dialysis [CONS] ONCE Hospital course: Mr. Yang is a 76 year old male - Time Spent with Patient Total time spent providing and/or coordinating discharge services: - Constitutional Vitals: Temp Pulse Resp BP Pulse Ox 97.8 F 88 16 110/65 99 12/01/16 16:17 12/01/16 16:17 12/01/16 16:17 12/01/16 16:17 12/01/16 16:17 - Attending Attestation I examined this patient and my medical decision-making was reviewed with the MILK PROCESSING WORKER/PA/Advanced Practice Nurse/Resident Physician. I agree with the documented findings, disposition and treatment plan as described except to the extent set forth below. Patient clinically improved. transudate. Will d/c home with services.
--- NOTE | 2016-12-01 16:13 | Physician Discharge Referral ---
<Peyman Varela - Last Filed: 12/01/16 16:10> Home Health/Hosp Referral Info Transfer to: Home Health Attending Provider: Dr Smita Monique Provider in Charge Post Discharge: PCP - Diagnosis (1) Bilateral pleural effusion Priority: Primary Status: Acute (2) Generalized weakness Priority: Secondary Status: Chronic (3) ESRD (end stage renal disease) on dialysis Priority: Secondary Status: Chronic (4) Elevated troponin Priority: Secondary Status: Chronic (5) Primary amyloidosis of light chain type Priority: Secondary Status: Chronic (6) DVT prophylaxis Priority: Secondary Status: Acute - Respiratory Orders Oxygen / L per min (2) Smoking Cessation: Smoking cessation has been advised. For more information, call the [employer] Tobacco Quit Line at 2-890-LIKF-NOW. - Diet/Nutrition Diet/Nutrition Orders: Renal - Activity Activity Orders: Ambulate - Services Needed Following services are medically necessary services: Home Health Aide, Physical Therapy, Occupational Therapy - Transfer Medications Prescriptions: Benzonatate [Tessalon] 200 mg PO TID PRN #20 capsule PRN Reason: Cough Home Medications: Acetaminophen [Tylenol Arthritis] 650 mg PO BID 07/26/16 [History] Aspirin [Lo-Dose Aspirin EC] 81 mg PO DAILY 07/26/16 [History] Calcium Acetate [Phos-LO] 667 mg PO TIDWM 07/26/16 [History] Docusate [Colace] 100 mg PO BID 07/26/16 [History] EPINEPHrine [Epipen] 0.3 mg IM ONCE PRN 07/26/16 [History] Finasteride [Proscar] 5 mg PO DAILY 07/26/16 [History] Fluticasone Propionate [Flovent Diskus] 2 spray IH DAILY 07/26/16 [History] Furosemide [Lasix] 20 mg PO DAILY 07/26/16 [History] Metoprolol [Lopressor] 25 mg PO BID 07/26/16 [History] Omeprazole [PriLOSEC] 20 mg PO DAILY 07/26/16 [History] Simvastatin [Zocor] 40 mg PO HS 07/26/16 [History] Sodium Bicarbonate 650 mg PO BID 07/26/16 [History] Vit A/C/E AC/Znox/Cupric Oxide [Eye Vitamin-Minerals Tablet] 2 each PO DAILY [History] Warfarin [Coumad[facility]] [facility] 07/26/16 [History] Warfarin [Coumadin] 5 mg PO MOWEFR 07/26/16 [History] Polyvinyl Alcohol/Povidone/Pf [Refresh Classic Eye Drops] 1 drop OP DAILY [History] Ascorbic Acid [Vitamin C] 500 mg PO DAILY #30 tablet 09/08/16 [Rx] Ferrous Sulfate 325 mg PO DAILY #30 tablet 09/08/16 [Rx] HYDROcodone/Acet 5/325 mg [[place] 5-325 mg] 1 tab PO Q6H PRN #10 tab 10/13/16 [Rx ] Oxygen 2 l NS AD 10/13/16 [History] Polyethylene Glycol 3350 [MiraLAX] 17 gm PO DAILY 11/20/16 [History] Valacyclovir HCl [Valacyclovir] 500 mg PO DAILY 11/20/16 [History] Benzonatate [Tessalon] 200 mg PO TID PRN #20 capsule 12/01/16 [Rx] Allergies/Adverse Reactions: Allergies Amoxicillin Allergy (Verified 11/20/16 16:25) Swelling of Lip/Tongue/Throat Penicillins [PCN] Allergy (Verified 11/20/16 12:37) Anaphylaxis venom-honey bee [bee venom (honey bee)] Allergy (Verified 11/20/16 12:37) Anaphylaxis Certification: Further, I certify that my clinical findings support that this patient is homebound (i.e. absences from home require considerable and taxing effort and are for medical reasons or hinduism services or infrequently or short duration when for other reasons) because: Homebound Reason: Severity of cardiac or pulmonary status limits activity tolerance Attestation: My signature below is to certify that this patient is under my care and that I, or nurse practitioner, or a physician's faculty research assistant working with me, has a face-to -face encounter with this patient. <[facility] - Last Filed: 12/01/16 16:47> - Diagnosis (1) Generalized weakness Status: Chronic (2) HCAP (healthcare-associated pneumonia) Status: Acute (3) ESRD (end stage renal disease) on dialysis Status: Chronic (4) Primary amyloidosis of light chain type Status: Chronic (5) Elevated troponin Status: Acute (6) DVT prophylaxis Status: Acute - Respiratory Orders Smoking Cessation: Smoking cessation has been advised. For more information, call the [employer] Tobacco Quit Line at 1-259-QFGG-NOW. Certification: Further, I certify that my clinical findings support that this patient is homebound (i.e. absences from home require considerable and taxing effort and are for medical reasons or hinduism services or infrequently or short duration when for other reasons) because: Attestation: My signature below is to certify that this patient is under my care and that I, or nurse practitioner, or a physician's faculty research assistant working with me, has a face-to -face encounter with this patient.
[2016-12-01 16:21] VITALS: BP 110/65
--- NOTE | 2016-12-01 16:34 | Pulmonology Progress Note ---
<RosasIfeanyi Asa - Last Filed: 12/01/16 16:29> Date of Encounter: 12/01/16 Time of Encounter: 08:00 Assessment and Plan (1) Bilateral pleural effusion Current Visit: Yes Status: Acute Stable. Right pleural effusion was drained via thoracentesis. Please refer to procedure note for details of this. Patient had good relief with the procedure. Fluids been sent for analysis. It is likely related to his underlying heart failure and end-stage renal disease. We will await final confirmation with fluid analysis, culture, cytology. Subjective Principal diagnosis: Cough, ESRD on dialysis Interval history: Patient seen and examined at bedside. He states he feels pretty good this morning. His shortness of breath and cough are now progressing. He states these are stable. Objective PUL Vital signs: Last Vital Signs Temp 97.8 F 12/01/16 16:17 Pulse 88 12/01/16 16:17 Resp 16 12/01/16 16:17 BP 110/65 12/01/16 16:17 Pulse Ox 99 12/01/16 16:17 General appearance: no acute distress ENT: oropharynx moist Auscultation: right: diminished breath sounds Cardiovascular: irregular rhythm Gastrointestinal: normoactive bowel sounds, soft, non-tender, non-distended Extremities: no cyanosis, no edema, no clubbing normal mental status, non-focal exam Results - Laboratory Findings CBC and BMP: 12/01/16 04:13 12/01/16 04:13 PT/INR, D-dimer PT 32.8 Seconds (9.4-12.1) H 12/01/16 04:13 Abnormal lab findings: Abnormal lab results RBC 2.80 M/mcL (4.19-5.50) L 12/01/16 04:13 Hgb 8.7 g/dL (12.9-16.9) L 12/01/16 04:13 Hct 26.6 % (37.5-50.1) L 12/01/16 04:13 RDW 17.9 % (11.5-14.5) H 12/01/16 04:13 Plt Count 468 K/mcL (140-400) H 12/01/16 04:13 Monocytes # 1.6 K/mcL (0.0-1.3) H 12/01/16 04:13 Eosinophils # 0.7 K/mcL (0.0-0.6) H 12/01/16 04:13 Nucleated RBCs/100 WBC 0.4 /100 WBC (0) H 12/01/16 04:13 Platelet Estimate Increased (Normal) H 11/28/16 07:01 Hypochromasia Present (Not Present) A 11/30/16 05:55 Anisocytosis 2+ (Not Present) A 11/30/16 05:55 Microcytosis Present (Not Present) A 11/30/16 05:55 Macrocytosis Present (Not Present) A 11/30/16 05:55 Spherocytes 1+ (Not Present) A 11/28/16 07:01 Target Cells 1+ (Not Present) A 11/28/16 07:01 PT 32.8 Seconds (9.4-12.1) H 12/01/16 04:13 APTT 38.1 Seconds (26.0-36.0) H 11/27/16 12:53 Potassium 4.6 mEq/L (3.5-4.5) H 12/01/16 04:13 Carbon Dioxide 31 mEq/L (19-29) H 12/01/16 04:13 BUN 49 mg/dL (8-26) H D 12/01/16 04:13 Creatinine 6.43 mg/dL (0.72-1.25) H 12/01/16 04:13 Est GFR ( Amer) 10 (> 60) L 12/01/16 04:13 Est GFR (Non-Af Amer) 8 (> 60) L 12/01/16 04:13 Troponin I 0.15 ng/mL (0-0.03) H* 11/27/16 12:53 B-Natriuretic Peptide 2434 pg/mL (0-100) H 11/28/16 07:01 - Microbiology Findings Microbiology Findings: Microbiology, Last 48 Hours 12/01/16 09:02 Acid Fast Stain - Final Pleural Fluid 12/01/16 09:02 Body Fluid Culture - Preliminary Pleural Fluid 11/28/16 09:40 Blood Culture - Preliminary Peripheral Venipuncture No growth. 11/28/16 09:40 Blood Culture - Preliminary Peripheral Venipuncture No growth. - Clinical Findings Intake & Output: Intake & Output 12/01/16 12/01/16 12/01/16 07:59 15:59 23:59 Intake Total 700 / 700 240 / 240 Output Total 250 / 250 3600 / 3600 0 / 0 Balance -250 / -250 -2900 / -2900 240 / 240 Weight 63.8 kg Consult Discharge Plan - Plan Referrals: [facility] [Outside] - 12/08/16 1:30 pm (Please follow up as schedule..) Prescriptions: Benzonatate [Tessalon] 200 mg PO TID PRN #20 capsule PRN Reason: Cough <Mirela Kaur M - Last Filed: 12/01/16 16:38> Objective PUL Vital signs: Last Vital Signs Temp 97.8 F 12/01/16 16:17 Pulse 88 12/01/16 16:17 Resp 16 12/01/16 16:17 BP 110/65 12/01/16 16:17 Pulse Ox 99 12/01/16 16:17 Results - Laboratory Findings CBC and BMP: 12/01/16 04:13 12/01/16 04:13 PT/INR, D-dimer PT 32.8 Seconds (9.4-12.1) H 12/01/16 04:13 Abnormal lab findings: Abnormal lab results RBC 2.80 M/mcL (4.19-5.50) L 12/01/16 04:13 Hgb 8.7 g/dL (12.9-16.9) L 12/01/16 04:13 Hct 26.6 % (37.5-50.1) L 12/01/16 04:13 RDW 17.9 % (11.5-14.5) H 12/01/16 04:13 Plt Count 468 K/mcL (140-400) H 12/01/16 04:13 Monocytes # 1.6 K/mcL (0.0-1.3) H 12/01/16 04:13 Eosinophils # 0.7 K/mcL (0.0-0.6) H 12/01/16 04:13 Nucleated RBCs/100 WBC 0.4 /100 WBC (0) H 12/01/16 04:13 Platelet Estimate Increased (Normal) H 11/28/16 07:01 Hypochromasia Present (Not Present) A 11/30/16 05:55 Anisocytosis 2+ (Not Present) A 11/30/16 05:55 Microcytosis Present (Not Present) A 11/30/16 05:55 Macrocytosis Present (Not Present) A 11/30/16 05:55 Spherocytes 1+ (Not Present) A 11/28/16 07:01 Target Cells 1+ (Not Present) A 11/28/16 07:01 PT 32.8 Seconds (9.4-12.1) H 12/01/16 04:13 APTT 38.1 Seconds (26.0-36.0) H 11/27/16 12:53 Potassium 4.6 mEq/L (3.5-4.5) H 12/01/16 04:13 Carbon Dioxide 31 mEq/L (19-29) H 12/01/16 04:13 BUN 49 mg/dL (8-26) H D 12/01/16 04:13 Creatinine 6.43 mg/dL (0.72-1.25) H 12/01/16 04:13 Est GFR ( Amer) 10 (> 60) L 12/01/16 04:13 Est GFR (Non-Af Amer) 8 (> 60) L 12/01/16 04:13 Troponin I 0.15 ng/mL (0-0.03) H* 11/27/16 12:53 B-Natriuretic Peptide 2434 pg/mL (0-100) H 11/28/16 07:01 - Microbiology Findings Microbiology Findings: Microbiology, Last 48 Hours 12/01/16 09:02 Acid Fast Stain - Final Pleural Fluid 12/01/16 09:02 Body Fluid Culture - Preliminary Pleural Fluid 11/28/16 09:40 Blood Culture - Preliminary Peripheral Venipuncture No growth. 11/28/16 09:40 Blood Culture - Preliminary Peripheral Venipuncture No growth. - Clinical Findings Intake & Output: Intake & Output 12/01/16 12/01/16 12/01/16 07:59 15:59 23:59 Intake Total 700 / 700 240 / 240 Output Total 250 / 250 3600 / 3600 0 / 0 Balance -250 / -250 -2900 / -2900 240 / 240 Weight 63.8 kg - Attending Attestation I examined this patient and my medical decision-making was reviewed with the CLAIMS ANALYST/PA/Advanced Practice Nurse/Resident Physician. I agree with the documented findings, disposition and treatment plan as described except to the extent set forth below. Patient seen and examined and reviewed his labs Patient has no significant changes from yesterday and physical exam has not changed Thoracentesis was done and patient felt better after that. Will follow up on the fluid analysis. Suspect it will be transudate.
[2016-12-01] MEDS: *HR* Warfarin 5 MG TABLET PO SCH (16:51)
--- NOTE | 2016-12-01 17:11 | Physician Discharge Referral ---
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 (5) Elevated troponin Status: Acute (6) DVT prophylaxis Status: Acute - Transfer Medications Prescriptions: Benzonatate [Tessalon] 200 mg PO TID PRN #20 capsule PRN Reason: Cough Home Medications: Acetaminophen [Tylenol Arthritis] 650 mg PO BID 07/26/16 [History] Aspirin [Lo-Dose Aspirin EC] 81 mg PO DAILY 07/26/16 [History] Calcium Acetate [Phos-LO] 667 mg PO TIDWM 07/26/16 [History] Docusate [Colace] 100 mg PO BID 07/26/16 [History] EPINEPHrine [Epipen] 0.3 mg IM ONCE PRN 07/26/16 [History] Finasteride [Proscar] 5 mg PO DAILY 07/26/16 [History] Fluticasone Propionate [Flovent Diskus] 2 spray IH DAILY 07/26/16 [History] Furosemide [Lasix] 20 mg PO DAILY 07/26/16 [History] Metoprolol [Lopressor] 25 mg PO BID 07/26/16 [History] Omeprazole [PriLOSEC] 20 mg PO DAILY 07/26/16 [History] Simvastatin [Zocor] 40 mg PO HS 07/26/16 [History] Sodium Bicarbonate 650 mg PO BID 07/26/16 [History] Vit A/C/E AC/Znox/Cupric Oxide [Eye Vitamin-Minerals Tablet] 2 each PO DAILY [History] Warfarin [Coumadin] 2.5 mg PO SUTUTHSA 07/26/16 [History] Warfarin [Coumadin] 5 mg PO MOWEFR 07/26/16 [History] Polyvinyl Alcohol/Povidone/Pf [Refresh Classic Eye Drops] 1 drop OP DAILY [History] Ascorbic Acid [Vitamin C] 500 mg PO DAILY #30 tablet 09/08/16 [Rx] Ferrous Sulfate 325 mg PO DAILY #30 tablet 09/08/16 [Rx] HYDROcodone/Acet 5/325 mg [[place] 5-325 mg] 1 tab PO Q6H PRN #10 tab 10/13/16 [Rx ] Oxygen 2 l NS AD 10/13/16 [History] Polyethylene Glycol 3350 [MiraLAX] 17 gm PO DAILY 11/20/16 [History] Valacyclovir HCl [Valacyclovir] 500 mg PO DAILY 11/20/16 [History] Benzonatate [Tessalon] 200 mg PO TID PRN #20 capsule 12/01/16 [Rx] Allergies/Adverse Reactions: Allergies Amoxicillin Allergy (Verified 11/20/16 16:25) Swelling of Lip/Tongue/Throat Penicillins [PCN] Allergy (Verified 11/20/16 12:37) Anaphylaxis venom-honey bee [bee venom (honey bee)] Allergy (Verified 11/20/16 12:37) Anaphylaxis - Respiratory Orders Oxygen / L per min (2) Smoking Cessation: Smoking cessation has been advised. For more information, call the [employer] Quit Line at 5-408-LHDI-NOW. - Ancillary Orders May use pressure relief devices daily prn, May go on DELL w/family/respon alliance party w /meds at nurse discretion PRN, May consult with Dentist, Bolt Threader, Doughnut Fryer PRN - Advance Directives Code Status: Full Code - Mobility Orders Ambulate - Rehabiliation Orders Rehab Potential: Fair Rehab Orders: ROM Exercises, Evaluation for Physical Therapy, Evaluation for Occupational Therapy - Treatments May check for fecal impaction rectally daily PRN - Diet Orders Renal CERTIFICATION: I certify that the transfer of the above named patient to an Extended Care Facility is necessary for the continuing treatment of the diagnosis listed. The above information is true and accurate reflection of patient's current condition. Confidential - Redisclosure prohibited without a patient's written consent.
== END 2016-12-01 19:30 | disposition home health service (06) | DRG 186 ==
LOC: 2ANU 11:37 → EMEROO 11:37 → 2ANU 15:21 → SUATTDRO 15:44
PROVIDERS: ADMIT Internal Medicine; ATTEND Internal Medicine

== ENCOUNTER 2017-06-29 14:24 | Observation (INO) ==
--- NOTE | 2017-06-29 14:57 | Emergency Department Note ---
Disposition Clinical Impression: Generalized weakness Anemia Qualifiers: Anemia type: unspecified type Qualified Code(s): D64.9 - Anemia, unspecified Disposition: Admitted As Inpatient Condition: Fair Referrals: NONE,PCP [Non-Partnered Physician] - Forms: ED Satisfaction Letter Time of Disposition: 16:13 General Adult HPI - General Chief complaint: ED Weakness Stated complaint: Superintendent Distribution wants Transfusion Time Seen by Provider: 06/29/17 14:28 Source: patient, family Limitations: no limitations Nursing Notes Reviewed: Yes Vital Signs Reviewed: Yes - History of Present Illness HPI Narrative: 76-year-old male has a history of renal failure and on hemodialysis and recently switched this week in fact to peritoneal dialysis he's been disoriented and just doesn't feel right with generalized weakness. Pt Subjective Complaint: Generalized weakness Onset (ago): day(s) Pain Scale: 0 - Related Data Home Medications Medication Instructions Recorded Confirmed Aspirin [Lo-Dose Aspirin EC] 81 mg PO DAILY 07/26/16 05/03/17 Docusate [Colace] 100 mg PO BID PRN 07/26/16 05/03/17 Finasteride [Proscar] 5 mg PO DAILY 07/26/16 05/03/17 Furosemide [Lasix] 20 mg PO DAILY 07/26/16 05/03/17 Metoprolol [Lopressor] 25 mg PO BID 07/26/16 05/03/17 Sodium Bicarbonate 650 mg PO BID 07/26/16 05/03/17 Vit A/C/E AC/Znox/Cupric Oxide 1 tab PO DAILY 07/26/16 05/03/17 [Eye Vitamin-Minerals Tablet] Warfarin [Coumadin] 2.5 mg PO SUTUTHSA 07/26/16 05/03/17 Warfarin [Coumadin] 5 mg PO MOWEFR 07/26/16 05/03/17 Polyvinyl Alcohol/Povidone/Pf 1 drop OP BID 08/18/16 05/03/17 [Refresh Classic Eye Drops] Oxygen 2 l NS AD 10/13/16 05/03/17 Polyethylene Glycol 3350 [MiraLAX] 17 gm PO DAILY 11/20/16 05/03/17 Valacyclovir HCl [Valacyclovir] 500 mg PO DAILY 11/20/16 05/03/17 Atorvastatin Calcium [Lipitor] 20 mg PO HS 12/22/16 05/03/17 Fluticasone Propionate Nasal 1 spr NS DAILY PRN 05/03/17 05/03/17 [Flonase] Mirtazapine [Remeron] 7.5 mg PO HS 05/03/17 05/03/17 Pantoprazole Sodium [Protonix] 40 mg PO BID 05/03/17 05/03/17 Sevelamer [Renvela] 800 mg PO TIDWM 05/03/17 05/03/17 Previous Rx's Medication Instructions Recorded Ferrous Sulfate 325 mg PO DAILY #30 tablet 09/08/16 Ferrous Sulfate [Iron] 325 mg PO DAILY #30 tablet 02/12/17 OxyCODONE/APAP 5/325 [Percocet 1 each PO Q6HR PRN #7 tablet 05/03/17 5/325 MG] Allergies Allergy/AdvReac Type Severity Reaction Status Date / Time Amoxicillin Allergy Swelling Verified 05/03/17 08:17 of Lip/Tongue/Throat Penicillins [PCN] Allergy Anaphylaxis Verified 05/03/17 08:17 venom-honey bee Allergy Anaphylaxis Verified 05/03/17 08:17 [bee venom (honey bee)] All systems ED: reviewed and negative except as stated. Constitutional: Denies: fever, chills, weakness, weight change Eyes: Denies: eye pain, eye discharge, vision change ENT ED: Denies: ear pain, throat pain, dental pain, hearing loss, epistaxis, congestion, dysphagia Cardiovascular: Denies: chest pain, palpitations, dyspnea on exertion, edema, syncope Respiratory: Denies: cough, dyspnea, wheezes, hemoptysis, stridor Gastrointestinal: Denies: abdominal pain, nausea, vomiting, diarrhea, constipation, hematemesis, melena, hematochezia Genitourinary: Denies: urgency, dysuria, frequency, hematuria Musculoskeletal: Denies: back pain, neck pain, arthralgia, myalgia Integumentary: Denies: rash, abrasion, lesions Neurological: Reports: weakness (Lysed). Denies: headache, numbness, paresthesias, confusion, abnormal gait, vertigo Psychiatric: Denies: anxiety, depression, suicidal thoughts, homicidal thoughts , auditory hallucinations, visual hallucinations Endocrine: Denies: fatigue Hematological/Lymphatic: Denies: easy bleeding, easy bruising Allergic/Immunologic: Denies: facial swelling, urticaria Past Medical History - Past Medical History Medical history: Reports: arthritis, atrial fibrillation, CHF, dialysis, GERD, hyperlipidemia, osteoporosis, renal disease, valvular heart disease, other Surgical history: Reports: appendectomy Psychiatric history: Reports: no psych history - Social History Smoking Status: Never smoker Smokeless Tobacco Status: No Alcohol use: Reports: none Drug use: Reports: none Physical Exam - General Limitations: no limitations General appearance: alert - Head Head exam: atraumatic, normocephalic, normal inspection - Eye Eye exam: Present: normal appearance, PERRL, EOMI - ENT ENT exam: normal exam, normal oropharynx, mucous membranes moist - Neck Neck exam: Present: normal inspection, full ROM, trachea midline - Chest Chest inspection: Present: normal inspection, symmetric chest wall rise - Respiratory Respiratory exam: Present: normal lung sounds bilaterally - Cardiovascular Cardiovascular exam: Present: regular rate, normal rhythm, normal heart sounds - Abdominal Exam Abdominal exam: Present: soft, Non-Tender. Absent: tenderness, distention, guarding, rebound, rigidity - Extremities Exam Extremities exam: Present: normal inspection, full ROM. Absent: tenderness, pedal edema - Expanded Lower Extremity Exam Neurovascular/Tendon exam: Absent: motor deficit, sensory deficit, tendon deficit Gait: observed and normal - Back Exam Back exam: Present: normal inspection, full ROM. Absent: tenderness - Neurological Exam Neurological exam: Present: alert, oriented X3 - Psychiatric Psychiatric exam: Present: normal affect, normal mood - Skin Skin exam: Present: warm, dry, intact, normal color Course - Reevaluation(s) Reevaluation #1: 76-year-old male with a history of renal failure recently started on perineal dialysis who comes in with generalized weakness and anemia. Workup here shows a hemoglobin of 8.2 consultation obtained with nephrology once and received one unit of blood. We did do a troponin was 0.06 however that cillosis 20s ever had here. Time: 17:41 - Consultations Consultation #1: Discussed with Dr. Quesada, request if he has peritoneal fluid in the culture and cell count however the patient put it in at night does not have any in at the moment. He also requested troponin and EKG and admitted to the hospitalist and also request transfuse 1 unit of blood. Time: 16:12 Consultation #2: Discussed with Willian Lindsey, admit. Time: 17:35 Vital Signs Temperature 97.4 F L 06/29/17 14:35 Pulse Rate 90 06/29/17 14:35 Respiratory Rate 18 06/29/17 14:35 Blood Pressure 96/53 06/29/17 14:35 O2 Sat by Pulse Oximetry 98 06/29/17 14:35 Temperature 97.4 F L 06/29/17 14:35 Pulse Rate 78 06/29/17 16:35 Respiratory Rate 16 06/29/17 16:35 Blood Pressure 111/55 06/29/17 15:04 O2 Sat by Pulse Oximetry 94 06/29/17 16:35 Oxygen Delivery Oxygen Delivery Room Air Medical Decision Making - Lab Data Result diagrams: 06/29/17 14:56 06/29/17 14:56 Lab Results 06/29/17 06/29/17 06/29/17 Range/Units 14:56 14:56 14:56 WBC 7.7 (4.3-11.1) K/mcL RBC 2.59 L (4.19-5.50) M/mcL Hgb 8.2 L (12.9-16.9) g/dL Hct 23.7 L (37.5-50.1) % MCV 91.5 (83.0-100.0) fL MCH 31.7 (28.0-33.3) pg MCHC 34.6 (31.6-35.5) g/dL RDW 18.6 H (11.5-14.5) % Plt Count 212 (140-400) K/mcL MPV 12.4 (9.4-12.4) fL Immature Gran % 0.3 (0-4) % Seg Neutrophils % 72.1 % Lymphocytes % 10.6 % Monocytes % 12.8 % Eosinophils % 3.2 % Basophils % 1.0 % Neutrophils # 5.6 (1.6-8.9) K/mcL Lymphocytes # 0.8 (0.6-4.6) K/mcL Monocytes # 1.0 (0.0-1.3) K/mcL Eosinophils # 0.3 (0.0-0.6) K/mcL Basophils # 0.1 (0.0-0.2) K/mcL PT 20.7 H (9.4-12.1) Seconds INR 1.9 APTT 34.6 (26.0-36.0) Seconds Sodium 133 L (136-145) mEq/L Potassium 5.7 H (3.5-4.5) mEq/L Chloride 92 L (98-109) mEq/L Carbon Dioxide 24 (19-29) mEq/L BUN 141 H (8-26) mg/dL Creatinine 12.52 H (0.72-1.25) mg/dL Est GFR ( Amer) 5 L (> 60) Est GFR (Non-Af Amer) 4 L (> 60) BUN/Creatinine Ratio 11 (6-26) Glucose 94 (70-99) mg/dL Calculated Osmolality 322 H (280-300) Calcium 8.8 (8.6-10.8) mg/dL Magnesium (1.6-2.6) mg/dL Troponin I (0-0.03) ng/mL Blood Type Antibody Screen Crossmatch 06/29/17 06/29/17 06/29/17 Range/Units 14:56 14:56 14:56 WBC (4.3-11.1) K/mcL RBC (4.19-5.50) M/mcL Hgb (12.9-16.9) g/dL Hct (37.5-50.1) % MCV (83.0-100.0) fL MCH (28.0-33.3) pg MCHC (31.6-35.5) g/dL RDW (11.5-14.5) % Plt Count (140-400) K/mcL MPV (9.4-12.4) fL Immature Gran % (0-4) % Seg Neutrophils % % Lymphocytes % % Monocytes % % Eosinophils % % Basophils % % Neutrophils # (1.6-8.9) K/mcL Lymphocytes # (0.6-4.6) K/mcL Monocytes # (0.0-1.3) K/mcL Eosinophils # (0.0-0.6) K/mcL Basophils # (0.0-0.2) K/mcL PT (9.4-12.1) Seconds INR APTT (26.0-36.0) Seconds Sodium (136-145) mEq/L Potassium (3.5-4.5) mEq/L Chloride (98-109) mEq/L Carbon Dioxide (19-29) mEq/L BUN (8-26) mg/dL Creatinine (0.72-1.25) mg/dL Est GFR ( Amer) (> 60) Est GFR (Non-Af Amer) (> 60) BUN/Creatinine Ratio (6-26) Glucose (70-99) mg/dL Calculated Osmolality (280-300) Calcium (8.6-10.8) mg/dL Magnesium 2.3 (1.6-2.6) mg/dL Troponin I 0.06 H* (0-0.03) ng/mL Blood Type O POSITIVE Antibody Screen NEGATIVE Crossmatch See Detail NIH Stroke Scale - Level of Consciousness LOC: Alert - LOC Questions LOC Questions: Answers both correctly - LOC Commands LOC Commands: Performs both correctly - Best Gaze Best Gaze: Normal - Visual Visual: No visual loss - Facial Palsy Facial Palsy: Normal - Motor Arms Motor Arm-Left: No drift for 10 seconds Motor Arm-Right: No drift for 10 seconds - Motor Legs Motor Leg-Left: No drift for 5 seconds Motor Leg-Right: No drift for 5 seconds - Limb Ataxia Limb Ataxia: Normal, No Ataxia - Sensory Sensory: Normal - Best Language Best Language: No aphasia - Dysarthria Dysarthria: Normal - Extinction and Inattention Extinction and Inattention: Normal - NIHSS Total Score NIHSS Total Score: 0
[2017-06-29 15:03] LABS: Basophils # 0.1 K/mcL (0.0-0.2); Eosinophils # 0.3 K/mcL (0.0-0.6); Eosinophils % 3.2 %; Hematocrit 23.7 % (37.5-50.1); Hemoglobin 8.2 g/dL (12.9-16.9); Immature Granulocytes % 0.3 % (0-4); Lymphocytes # 0.8 K/mcL (0.6-4.6); Lymphocytes % 10.6 %; Mean Corpuscular HGB Conc 34.6 g/dL (31.6-35.5); Mean Corpuscular Hemoglobin 31.7 pg (28.0-33.3); Mean Corpuscular Volume 91.5 fL (83.0-100.0); Mean Platelet Volume 12.4 fL (9.4-12.4); Monocytes % 12.8 %; Neutrophils # 5.6 K/mcL (1.6-8.9); Platelet Count 212 K/mcL (140-400); Red Blood Count 2.59 M/mcL (4.19-5.50); Red Cell Distribution Width 18.6 % (11.5-14.5); Segmented Neutrophils % 72.1 %
[2017-06-29 15:08] LABS: INR 1.9; Prothrombin Time 20.7 Seconds (9.4-12.1)
[2017-06-29 15:10] LABS: Activated Partial Thrombo Time 34.6 Seconds (26.0-36.0)
[2017-06-29 15:23] LABS: Calcium 8.8 mg/dL (8.6-10.8); Potassium 5.7 mEq/L (3.5-4.5)
[2017-06-29] MEDS ORDERED: 0.9 % Sodium Chloride 250 ML ONE (17:40)
[2017-06-29] MEDS ORDERED: *HR* Warfarin 5 MG TABLET PO SCH (18:00)
--- NOTE | 2017-06-29 18:24 | Internal Med History&Physical ---
Date of Encounter: 06/29/17 Time of Encounter: 17:50 Assessment and Plan (1) Generalized weakness Current visit: Yes Status: Acute Generalized weakness - likely secondary to anemia and end-stage renal disease Continue Dialysis in the hospital, continue home meds H&H - 8.2 and 23.7, monitor Troponin - 0.06, which is lower than previous visits, cycle troponin EKG - pending Chest x-ray - pending Nephrology consult PT/OT consult, Daily weights, strict I's and out, fluid restriction Cardiac telemetry, labs in a.m. (2) Anemia Current visit: Yes Status: Acute Mild acute on chronic anemia - secondary to end-stage renal disease - No active bleeding Type and screen, transfuse 1 unit PRBC, monitor H&H Nephrology consultation Qualifiers: Anemia type: unspecified type Qualified Code(s): D64.9 - Anemia, unspecified (3) Elevated troponin Current visit: Yes Status: Chronic Chronically elevated troponin - lower than previous visits - no anginal symptoms Troponin 0.06, cycle troponin EKG pending Echocardiogram (11/20/2016) - LVEF 60% with normal LV size and function, indeterminate diastolic function, normal RV structure and function, mild aortic and mild mitral regurgitation (4) Atrial fibrillation Current visit: Yes Status: Chronic Chronic atrial fibrillation - rate controlled Continue Coumadin for anticoagulation, continue home meds Qualifiers: Atrial fibrillation type: paroxysmal Qualified Code(s): I48.0 - Paroxysmal atrial fibrillation (5) ESRD (end stage renal disease) on dialysis Current visit: Yes Status: Chronic End-stage renal disease on peritoneal dialysis for the past 1 week Patient has been on hemodialysis previously - left arm AV fistula in place Nephrology consult (6) Primary amyloidosis of light chain type Current visit: No Status: Chronic History of primary amyloidosis of light chain type - status post Velcade treatments - now in remission Patient follows up with oncology as outpatient (7) DVT prophylaxis Current visit: Yes Status: Acute Continue SCDs, continue Coumadin Internal Medicine - H&P: HPI Chief complaint: Generalized weakness Admitted From: Emergency Dept Plans for Post Hospital Care: Home History of present illness: Mr. Yang is a 76 year old male with past medical history of amyloidosis status post Velcade treatment (now in remission), atrial fibrillation, CHF, ESRD on dialysis, osteoporosis, GERD, hyperlipidemia and valvular heart disease. Patient presents to the ED with complaints of generalized weakness. Examined in the ED. Patient is awake and alert. Sitting up comfortably. Not in any distress. Able to provide all history. Son is at bedside and he provides history as well. Patient states he has been feeling weak and tired over the past 2-3 weeks. Symptoms gradually worsened. According to the son, patient usually drives on his own and is independent for activities of daily living, but he has not been going out and not been himself over the past few weeks. Patient denies chest pain, denies shortness of breath, denies palpitations. Denies abdominal pain or nausea or vomiting. Denies fever chills or night sweats. No headache or dizziness or cough. Patient states he does have diarrhea at times. He does take MiraLAX at home. Patient started on peritoneal dialysis about one week ago and the son states that patient has this done fairly okay with this. Patient does have a left arm AV fistula. Apparently patient was advised to go to the ED today for anemia. He denies any active bleeding. No hematemesis and no blood in stool and no melena. No other acute events or complaints. Initial workup in the ED today reveals an H&H of 8.2 and 23.7. PT/INR is 20.7 and 1.9. Patient does take Coumadin for atrial fibrillation. He also has elevated troponin at 0.06, which is lower than his previous visits. ER physician has discussed with Dr. Quesada, nephrology. He is advised peritoneal fluid culture and 1 unit PRBC transfusion. Patient is being admitted for anemia and generalized weakness. Patient and son have been explained about his condition and plan of care. Understood and agreed. No unanswered questions. CODE STATUS full code. Past Med Surg Social Fam HX - Past Medical History Medical history: arthritis, atrial fibrillation, CHF, dialysis, GERD, hyperlipidemia, osteoporosis, renal disease, valvular heart disease, other Psychiatric history: no psych history - Past Surgical History Surgical History: appendectomy - Social History Smoking Status: Never smoker Smokeless Tobacco Status: No Alcohol use: none Drug use: none Internal Medicine - H&P: Meds Aspirin [Lo-Dose Aspirin EC] 81 mg PO DAILY 07/26/16 [History] Docusate [Colace] 100 mg PO BID PRN 07/26/16 [History] Finasteride [Proscar] 5 mg PO DAILY 07/26/16 [History] Furosemide [Lasix] 20 mg PO DAILY 07/26/16 [History] Metoprolol [Lopressor] 25 mg PO BID 07/26/16 [History] Sodium Bicarbonate 650 mg PO BID 07/26/16 [History] Vit A/C/E AC/Znox/Cupric Oxide [Eye Vitamin-Minerals Tablet] 1 tab PO DAILY [History] Warfarin [Coumadin] 2.5 mg PO SUTUTHSA 07/26/16 [History] Warfarin [Coumadin] 5 mg PO MOWEFR 07/26/16 [History] Polyvinyl Alcohol/Povidone/Pf [Refresh Classic Eye Drops] 1 drop OP BID [History] Ferrous Sulfate 325 mg PO DAILY #30 tablet 09/08/16 [Rx] Oxygen 2 l NS AD 10/13/16 [History] Polyethylene Glycol 3350 [MiraLAX] 17 gm PO DAILY 11/20/16 [History] Valacyclovir HCl [Valacyclovir] 500 mg PO DAILY 11/20/16 [History] Atorvastatin Calcium [Lipitor] 20 mg PO HS 12/22/16 [History] Ferrous Sulfate [Iron] 325 mg PO DAILY #30 tablet 02/12/17 [Rx] Fluticasone Propionate Nasal [Flonase] 1 spr NS DAILY PRN 05/03/17 [History] Mirtazapine [Remeron] 7.5 mg PO HS 05/03/17 [History] OxyCODONE/APAP 5/325 [Percocet 5/325 MG] 1 each PO Q6HR PRN #7 tablet 05/03/17 [ Rx] Pantoprazole Sodium [Protonix] 40 mg PO BID 05/03/17 [History] Sevelamer [Renvela] 800 mg PO TIDWM 05/03/17 [History] Allergies Amoxicillin Allergy (Verified 05/03/17 08:17) Swelling of Lip/Tongue/Throat Penicillins [PCN] Allergy (Verified 05/03/17 08:17) Anaphylaxis venom-honey bee [bee venom (honey bee)] Allergy (Verified 05/03/17 08:17) Anaphylaxis All Systems PM: A 10-system review of systems was performed and is negative for pertinent findings except as documented above in the HPI. - Constitutional Constitutional: fatigue, weakness, no fever(s) - EENT Eyes: no blurry vision - Cardiovascular Cardiovascular ROS IM: no chest pain, no diaphoresis, no dyspnea, no dyspnea on exertion, no lightheadedness, no orthopnea, no syncope - Respiratory Respiratory: no cough, no dyspnea, no dyspnea on exertion, no wheezing, no chest congestion - Gastrointestinal Gastrointestinal: diarrhea, no abdominal pain, no bloating, no constipation, no cramping, no hematochezia, no melena, no nausea, no vomiting - Genitourinary Genitourinary ROS male: no dysuria - Musculoskeletal Musculoskeletal ROS IM: back pain - Neurological Neurological ROS: no abnormal gait, no confusion, no dizziness, no loss of vision, no numbness, no tingling - Constitutional Vitals: Temp Pulse Resp BP Pulse Ox 97.9 F 79 18 117/64 96 06/29/17 17:59 06/29/17 17:59 06/29/17 17:59 06/29/17 17:59 06/29/17 17:59 General appearance: Present: A&O X 3, pleasant, no acute distress, underweight, answers questions appropriately Exam: Frail, ill-appearing - Head Head exam: Present: atraumatic - Eye Eye exam: Present: EOMI - ENT ENT exam: Present: mucous membranes moist - Neck Neck exam general surgery: Present: supple - Respiratory Respiratory exam: Present: CTAB. Absent: rales, rhonchi, stridor, wheezes, tachypnea - Cardiovascular Cardiovascular exam: Present: RRR, +S1, +S2 - GI/Abdominal GI/Abdominal exam: Present: distended (Slightly distended but seems benign), soft, no peritoneal signs. Absent: firm, guarding, rigid, tenderness Additional comments: Peritoneal dialysis catheter in place, and site looks okay - Extremities Exam Extremities exam: Present: pedal edema (Bilateral lower leg 1+ pitting edema), radial pulses palpable and symetrical. Absent: cyanotic, tenderness Additional comments: Left arm AV fistula in place, thrill+, murmur+ - Neurological Exam Neurological exam: Present: alert, oriented X3, no focal deficits. Absent: facial droop, speech deficit Internal Med - H&P Results - Labs CBC & Chem 7: 06/29/17 14:56 06/29/17 14:56 Labs: Short CBC 06/29/17 Range/Units 14:56 WBC 7.7 (4.3-11.1) K/mcL Hgb 8.2 L (12.9-16.9) g/dL Hct 23.7 L (37.5-50.1) % Plt Count 212 (140-400) K/mcL Neutrophils # 5.6 (1.6-8.9) K/mcL BMP 06/29/17 14:56 Sodium 133 L Potassium 5.7 H Chloride 92 L Carbon Dioxide 24 BUN 141 H Creatinine 12.52 H Glucose 94 Calcium 8.8 Cardiac Enzymes 06/29/17 Range/Units 14:56 Troponin I 0.06 H* (0-0.03) ng/mL
[2017-06-29] MEDS ORDERED: Fluticasone Propionate Nasal 50 MCG/SPRAY BOTTLE NS PRN (18:41)
[2017-06-29] MEDS ORDERED: Acetaminophen 325 MG TABLET PO PRN (18:44)
[2017-06-29] MEDS ORDERED: *HR* Morphine 2 MG/ML SYRINGE IVP PRN (18:44)
[2017-06-29] MEDS ORDERED: Naloxone 0.4 MG/ML INJ IVP PRN (18:44)
[2017-06-29] MEDS ORDERED: Ondansetron 4 MG/2 ML VIAL IVP PRN (18:44)
[2017-06-29] MEDS ORDERED: NON-FORMULARY MEDICATION 1 EACH EACH (Oxygen [Oxygen] 2 L) NS SCH (18:45)
[2017-06-29] MEDS: Mirtazapine 15 MG TABLET PO SCH (22:40)
[2017-06-29] MEDS: Artificial Tears SOLN 15 ML BOTTLE OP SCH (22:41)
[2017-06-29] MEDS: Perit. Dialysis with Dex 1.5 % 2,000 ML PERITONEAL SCH (23:16)
[2017-06-30] MEDS: Perit. Dialysis with Dex 1.5 % 2,000 ML PERITONEAL SCH ×4 (02:10→20:47)
[2017-06-30 04:51] LABS: Basophils # 0.1 K/mcL (0.0-0.2); Eosinophils # 0.4 K/mcL (0.0-0.6); Eosinophils % 5.1 %; Immature Granulocytes % 0.3 % (0-4); Lymphocytes # 0.7 K/mcL (0.6-4.6); Lymphocytes % 9.4 %; Mean Corpuscular HGB Conc 34.6 g/dL (31.6-35.5); Mean Corpuscular Hemoglobin 31.5 pg (28.0-33.3); Mean Corpuscular Volume 90.9 fL (83.0-100.0); Mean Platelet Volume 13.4 fL (9.4-12.4); Monocytes % 12.6 %; Neutrophils # 5.6 K/mcL (1.6-8.9); Platelet Count 214 K/mcL (140-400); Red Blood Count 3.08 M/mcL (4.19-5.50); Red Cell Distribution Width 18.2 % (11.5-14.5); Segmented Neutrophils % 71.6 %
[2017-06-30 04:57] LABS: Hemoglobin 9.7 g/dL (12.9-16.9); INR 1.8; Prothrombin Time 20.1 Seconds (9.4-12.1)
[2017-06-30] MEDS: Furosemide 20 MG TABLET PO SCH (08:12)
[2017-06-30] MEDS: Finasteride 5 MG TABLET PO SCH (08:12)
[2017-06-30] MEDS: valACYclovir 500 MG TABLET PO SCH (08:12)
[2017-06-30] MEDS: Aspirin Enteric Coated 81 MG Tablet PO SCH (08:13)
[2017-06-30] MEDS: Artificial Tears SOLN 15 ML BOTTLE OP SCH ×2 (08:13→21:00)
[2017-06-30] MEDS: E AC PO SCH (08:14)
[2017-06-30] MEDS: CUPRIC OXIDE PO SCH (08:14)
[2017-06-30] MEDS: ZNOX PO SCH (08:14)
[2017-06-30] MEDS: VIT A PO SCH (08:14)
[2017-06-30] MEDS: [UNRECOGNIZED DRUG - OTHER] PO SCH (08:14)
[2017-06-30] MEDS ORDERED: 0.9 % Sodium Chloride 250 ML IVC PRN (09:47)
[2017-06-30] MEDS ORDERED: 0.9 % Sodium Chloride 1,000 ML PRIME SCH (10:00)
--- NOTE | 2017-06-30 11:56 | Nephrology Consult Note ---
Date of Encounter: 06/30/17 Time of Encounter: 11:53 Assessment and Plan (1) ESRD (end stage renal disease) on dialysis Current Visit: Yes Status: Chronic HD today; anticipate continuing with PD treatments Continue renal diet Avoid nephrotoxins if possible (2) Anemia Current Visit: Yes Status: Acute Hgb stable at 9.7 status post transfusion Goal hgb 10-11 Transfuse per parameters Qualifiers: Anemia type: unspecified type Qualified Code(s): D64.9 - Anemia, unspecified (3) Generalized weakness Current Visit: No Status: Chronic Improving status post dialysis History of Present Illness - Reason for Consult Consult date: 06/30/17 end stage renal disease - Chief Complaint weakness, ESRD on dialysis - History of Present Illness Mr. Yang is a 76 year old male well known to our practice with past medical history of amyloidosis status post Velcade treatment (now in remission), atrial fibrillation, CHF, ESRD on dialysis, osteoporosis, GERD, hyperlipidemia and valvular heart disease. Patient presented to the ED with complaints of generalized weakness. Patient states he has been feeling weak and tired over the past 2-3 weeks. Patient just recently transitioned from HD to PD. While in HD patient did very well, very compliant. Last week was first week on PD. Hgb at admission was 8.2 and patient has received a unit of PRBCs. States he is feeling much better now. Patient is continuing with his PD treatments but is currently getting an HD treatment this morning. Past Med Surg Social Fam HX - Past Medical History Medical history: arthritis, atrial fibrillation, CHF, dialysis, GERD, hyperlipidemia, osteoporosis, renal disease, valvular heart disease, other Psychiatric history: no psych history - Past Surgical History Surgical History: appendectomy - Social History Smoking Status: Former smoker Smokeless Tobacco Status: No Alcohol use: none Drug use: none - Family History Mother Family Member Ethnicity: Non- Living Status: Age at : 94 Cause of : Dementia Hx Family Neurologic Disorders: Yes (Dementia) Father Living Status: Age at : 66 Cause of : Heart Attack Hx Family Cardiac Disorders: Yes (Heart Attack, HTN,) Medications and Allergies Aspirin [Lo-Dose Aspirin EC] 81 mg PO DAILY 07/26/16 [History] Docusate [Colace] 100 mg PO BID PRN 07/26/16 [History] Finasteride [Proscar] 5 mg PO DAILY 07/26/16 [History] Metoprolol [Lopressor] 25 mg PO BID 07/26/16 [History] Sodium Bicarbonate 650 mg PO BID 07/26/16 [History] Vit A/C/E AC/Znox/Cupric Oxide [Eye Vitamin-Minerals Tablet] 1 tab PO DAILY [History] Warfarin [Coumadin] 2.5 mg PO THSA 07/26/16 [History] Warfarin [Coumadin] 5 mg PO SUFR 07/26/16 [History] Polyvinyl Alcohol/Povidone/Pf [Refresh Classic Eye Drops] 1 drop OP BID [History] Oxygen 2 l NS AD 10/13/16 [History] Polyethylene Glycol 3350 [MiraLAX] 17 gm PO DAILY 11/20/16 [History] Valacyclovir HCl [Valacyclovir] 500 mg PO DAILY 11/20/16 [History] Atorvastatin Calcium [Lipitor] 20 mg PO HS 12/22/16 [History] Ferrous Sulfate [Iron] 325 mg PO DAILY #30 tablet 02/12/17 [Rx] Fluticasone Propionate Nasal [Flonase] 1 spr NS DAILY PRN 05/03/17 [History] Mirtazapine [Remeron] 7.5 mg PO HS 05/03/17 [History] Pantoprazole Sodium [Protonix] 40 mg PO BID 05/03/17 [History] Sevelamer [Renvela] 800 mg PO TIDWM 05/03/17 [History] Ascorbic Acid [Vitamin C] 500 mg PO DAILY 06/29/17 [History] EPINEPHrine [Epipen] 0.3 mg IM AD PRN 06/29/17 [History] Allergies Amoxicillin Allergy (Verified 05/03/17 08:17) Swelling of Lip/Tongue/Throat Penicillins [PCN] Allergy (Verified 05/03/17 08:17) Anaphylaxis venom-honey bee [bee venom (honey bee)] Allergy (Verified 05/03/17 08:17) Anaphylaxis Review of Systems All Systems: reviewed and no additional remarkable complaints except as stated Constitutional: fatigue, lethargy, malaise, no chills, no fever(s) Cardiovascular: no chest pain, no dyspnea, no leg edema, no pedal edema Respiratory: no dyspnea Gastrointestinal: no abdominal pain Neurological: no behavioral changes Exam - Vital Signs Vital signs: Initial Vital Signs Temp Pulse Resp BP Pulse Ox 97.4 F L 90 18 96/53 98 06/29/17 14:35 06/29/17 14:35 06/29/17 14:35 06/29/17 14:35 06/29/17 14:35 Vital Signs - Last 8 Hours Temp Pulse Resp BP Pulse Ox 06/30/17 10:50 97.6 F 78 16 129/66 95 06/30/17 07:51 97.5 F L 64 17 117/61 96 06/30/17 04:19 97.6 F 80 18 136/73 97 Intake and Output 06/29/17 06/30/17 06/30/17 23:59 07:59 15:59 Intake Total 350 / 350 240 / 240 Output Total 0 / 0 Balance 350 / 350 240 / 240 Intake: Oral 0 / 0 240 / 240 Blood Product 350 / 350 Rbcs Leuko Poor As-3 2nd 350 / 350 Unit [id number] Output: Urine 0 / 0 Other: Meal Breakfast Percent of Meal Consumed 100% Total Peritoneal Dialysis 200 Output Stool Size Moderate Stool Consistency loose liquid Stool Color Black # Bowel Movements 1 Weight 71.4 kg 71.214 kg 73.1 kg Patient Weight 06/30/17 23:59 Weight 73.1 kg - General Appearance General appearance: chronically ill, frail EENT: ATNC, mucous membranes moist, hearing intact, vision intact Neck: supple Respiratory: clear Cardiology: no edema, normal S1, normal S2 - Dialysis Access Dialysis Vascular Access: Arteriovenous Fistula Gastrointestinal: no tenderness, no guarding Integumentary: warm and dry Neurologic: alert and oriented x3 Psychiatric: mood/affect appropriate, cooperative Results - Lab Results 06/30/17 04:32 06/30/17 06:07 Most recent lab results Calcium 9.0 mg/dL (8.6-10.8) 06/30/17 06:07 Magnesium 2.3 mg/dL (1.6-2.6) 06/29/17 14:56 Consult Discharge Plan - Plan Referrals: Adolfo Tobias DO [Primary Care Provider] - (web request sent on )
[2017-06-30 13:04] LABS: Hepatitis B Surface Antigen Nonreactive (Nonreactive)
[2017-06-30] MEDS ORDERED: 0.9 % Sodium Chloride 1,000 ML ONE (14:21)
--- NOTE | 2017-06-30 14:49 | Discharge Summary ---
Date of Encounter: 06/30/17 Time of Encounter: 09:00 - Discharge Diagnosis (1) Generalized weakness Priority: Primary Status: Acute Comments: Generalized weakness - likely secondary to anemia and end-stage renal disease - symptoms now improved Continue regular dialysis sessions after discharge, continue home meds H&H - 9.7 and 28.0 after 1 unit PRBC transfusion Troponin - 0.07 (chronically elevated and lower than previous visit) - no anginal symptoms and no EKG changes (2) Anemia Priority: Primary Status: Acute Comments: Mild acute on chronic anemia - secondary to end-stage renal disease - No active bleeding - now improved after 1 unit PRBC Qualifiers: Anemia type: unspecified type Qualified Code(s): D64.9 - Anemia, unspecified (3) Elevated troponin Priority: Secondary Status: Chronic Comments: Troponin peak is 0.07, chronically elevated, lower than previous visit No EKG changes and no anginal symptoms (4) Atrial fibrillation Priority: Secondary Status: Chronic Comments: Chronic atrial fibrillation rate controlled, anticoagulation with warfarin, continue home meds Subtherapeutic INR - continue current dose of warfarin, recheck INR in a.m. 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 Priority: Secondary Status: Chronic Comments: History of primary amyloidosis of light chain type - status post Velcade treatments - now in remission Patient follows up with oncology as outpatient - Discharge Medications Home Medications: Aspirin [Lo-Dose Aspirin EC] 81 mg PO DAILY 07/26/16 [History] Docusate [Colace] 100 mg PO BID PRN 07/26/16 [History] Finasteride [Proscar] 5 mg PO DAILY 07/26/16 [History] Metoprolol [Lopressor] 25 mg PO BID 07/26/16 [History] Sodium Bicarbonate 650 mg PO BID 07/26/16 [History] Vit A/C/E AC/Znox/Cupric Oxide [Eye Vitamin-Minerals Tablet] 1 tab PO DAILY [History] Warfarin [Coumadin] 2.5 mg PO THSA 07/26/16 [History] Warfarin [Coumadin] 5 mg PO SUFR 07/26/16 [History] Polyvinyl Alcohol/Povidone/Pf [Refresh Classic Eye Drops] 1 drop OP BID [History] Oxygen 2 l NS AD 10/13/16 [History] Polyethylene Glycol 3350 [MiraLAX] 17 gm PO DAILY 11/20/16 [History] Valacyclovir HCl [Valacyclovir] 500 mg PO DAILY 11/20/16 [History] Atorvastatin Calcium [Lipitor] 20 mg PO HS 12/22/16 [History] Ferrous Sulfate [Iron] 325 mg PO DAILY #30 tablet 02/12/17 [Rx] Fluticasone Propionate Nasal [Flonase] 1 spr NS DAILY PRN 05/03/17 [History] Mirtazapine [Remeron] 7.5 mg PO HS 05/03/17 [History] Pantoprazole Sodium [Protonix] 40 mg PO BID 05/03/17 [History] Sevelamer [Renvela] 800 mg PO TIDWM 05/03/17 [History] Ascorbic Acid [Vitamin C] 500 mg PO DAILY 06/29/17 [History] EPINEPHrine [Epipen] 0.3 mg IM AD PRN 06/29/17 [History] Ferrous Sulfate 325 mg PO DAILY tab 06/30/17 [Rx] Furosemide [Lasix] 20 mg PO DAILY tab 06/30/17 [Rx] Allergies/Adverse Reactions: Allergies Amoxicillin Allergy (Verified 05/03/17 08:17) Swelling of Lip/Tongue/Throat Penicillins [PCN] Allergy (Verified 05/03/17 08:17) Anaphylaxis venom-honey bee [bee venom (honey bee)] Allergy (Verified 05/03/17 08:17) Anaphylaxis Procedures/tests Complete & Pending: Procedures Performed prior 72 hours Category Date Time Status ECG 12 lead ECG [ECG] AM 0600 Y 06/30/17 06:00 Ordered Date of admission: 06/29/17 18:17 Primary care physician: Adolfo Tobias DO Consults: 06/29/17 18:47 Consult to Nephrology [CONS] Routine Consulting Provider: Kidney Moni/ORIMI/LATIA/PEGGY Reason for Consult: ESRD, anemia Call Completed: Yes Consult to Occupational Therapy [CONS] Routine Comment: Evaluate, develop and implement POC Reason for Consult: OT eval Consult to Physical Therapy [CONS] Routine Comment: Evaluate, develop and implement POC Reason for Consult: PT eval 06/30/17 10:00 Consult to Dialysis [CONS] ONCE Anticipated date of discharge: 06/30/17 - Patient Status Disposition: Home, Self-Care Condition: Fair Functional capacity at discharge: uses cane/walker Overall status at discharge: patient is progressing back to baseline - Discharge Instructions Follow Up With: Adolfo Tobias DO [Primary Care Provider] - (web request sent on ) Buster Alex DO [Partnered Physician] - - Diet and Activity Activity: ambulate only with your walker, increase activity as tolerated Diet: advance to your usual diet, other (Continue renal diet) Hospital course: Mr. Yang is a 76 year old male with past medical history of atrial fibrillation, CHF, end-stage renal disease on dialysis, hyperlipidemia, GERD and history of amyloidosis now in remission. He presented to the ED with complaints of generalized weakness. Patient has apparently been feeling weak and had not been feeling himself for the past few weeks. Patient did not have any chest pain or shortness of breath or palpitations. He was started on peritoneal dialysis about a week ago and this may have contributed to his generalized weakness. Patient is apparently worse over the ED for anemia. Initial H&H was found to be 8.2 and 23.7. INR was 1.9 initially. Patient does take Coumadin for atrial fibrillation. Patient was also found to have elevated troponin at 0.06. His peak troponin was 0.07 and this is lower than his previous visit. Patient denied any anginal symptoms. EKG did not show any acute ST-T changes. Patient was transfused 1 unit packed red cells and his H&H is now 9.[address] Alex has evaluated the patient today and wants to adjust the patient's peritoneal dialysis before discharging him. Patient did undergo one session of hemodialysis during his stay in the hospital. Patient's generalized weakness is now resolved. He states he feels better and seems to be back to his baseline state. Patient is tolerating oral diet well and requires some assistance with ambulation. He had no other acute events or palpitations during his stay in the hospital. Patient was continued on all his home medications. INR is subtherapeutic and it will be checked before he is discharged. We will continue his current dose of warfarin at this time. Patient and son have been explained about his condition and plan of care. They understood and agreed. No unanswered questions. Patient will be discharged on 07/01/2017. - Time Spent with Patient Total time spent providing and/or coordinating discharge services: Less than 30 minutes - Constitutional Vitals: Temp Pulse Resp BP Pulse Ox 97.7 F 78 18 120/60 95 06/30/17 11:30 06/30/17 10:50 06/30/17 11:30 06/30/17 13:30 06/30/17 10:50 General appearance: Present: A&O X 3, pleasant, no acute distress, underweight, answers questions appropriately Exam: frail - Head Head exam: Present: atraumatic - Eye Eye exam: Present: EOMI - ENT ENT exam: Present: mucous membranes moist - Neck Neck exam general surgery: Present: supple - Respiratory Respiratory exam: Present: CTAB. Absent: rales, rhonchi, stridor, wheezes, tachypnea - Cardiovascular Cardiovascular exam: Present: RRR, +S1, +S2 - GI/Abdominal GI/Abdominal exam: Present: soft. Absent: distended, firm, guarding, rigid, tenderness Additional comments: Peritoneal dialysis catheter in place and site looks okay - Extremities Exam Extremities exam: Present: radial pulses palpable and symetrical. Absent: cyanotic, pedal edema, tenderness Additional comments: Left arm AV fistula in place, thrill+, murmur+ - Neurological Exam Neurological exam: Present: alert, oriented X3, no focal deficits. Absent: facial droop, speech deficit
[2017-06-30] MEDS: Gentamicin Oint 15 GM TUBE TP SCH ×2 (16:29→23:19)
[2017-06-30] MEDS ORDERED: *HR* Warfarin 2.5 MG TABLET PO SCH (18:00)
[2017-06-30] MEDS: Mirtazapine 15 MG TABLET PO SCH (20:42)
[2017-07-01] MEDS: Perit. Dialysis with Dex 1.5 % 2,000 ML PERITONEAL SCH ×2 (02:06→07:43)
[2017-07-01 05:08] LABS: Basophils # 0.1 K/mcL (0.0-0.2); Basophils % 1.2 %; Eosinophils # 0.4 K/mcL (0.0-0.6); Eosinophils % 6.5 %; Hematocrit 24.7 % (37.5-50.1); Hemoglobin 8.2 g/dL (12.9-16.9); Immature Granulocytes % 0.2 % (0-4); Lymphocytes # 0.9 K/mcL (0.6-4.6); Lymphocytes % 13.6 %; Mean Corpuscular HGB Conc 33.2 g/dL (31.6-35.5); Mean Corpuscular Hemoglobin 30.7 pg (28.0-33.3); Mean Corpuscular Volume 92.5 fL (83.0-100.0); Mean Platelet Volume 12.3 fL (9.4-12.4); Monocytes % 15.7 %; Platelet Count 218 K/mcL (140-400); Red Blood Count 2.67 M/mcL (4.19-5.50); Red Cell Distribution Width 18.7 % (11.5-14.5); Segmented Neutrophils % 62.8 %
[2017-07-01 05:14] LABS: INR 2.4; Prothrombin Time 26.1 Seconds (9.4-12.1)
[2017-07-01 05:22] LABS: Albumin 2.5 g/dL (3.5-5.0); Albumin/Globulin Ratio 0.9 (1.1-2.2); Bilirubin,Total 0.7 mg/dL (0.2-1.2); Calcium 8.6 mg/dL (8.6-10.8); Globulin 2.8 g/dL (2.4-3.5); Total Protein 5.3 g/dL (6.0-8.3)
[2017-07-01 05:25] LABS: Potassium 3.8 mEq/L (3.5-4.5)
[2017-07-01] MEDS: Finasteride 5 MG TABLET PO SCH (07:44)
[2017-07-01] MEDS: Furosemide 20 MG TABLET PO SCH (07:44)
[2017-07-01] MEDS: Aspirin Enteric Coated 81 MG Tablet PO SCH (07:44)
[2017-07-01] MEDS: valACYclovir 500 MG TABLET PO SCH (07:44)
[2017-07-01] MEDS: Artificial Tears SOLN 15 ML BOTTLE OP SCH (07:44)
[2017-07-01] MEDS: Gentamicin Oint 15 GM TUBE TP SCH (07:45)
[2017-07-01] MEDS: VIT A PO SCH (07:45)
[2017-07-01] MEDS: [UNRECOGNIZED DRUG - OTHER] PO SCH (07:45)
[2017-07-01] MEDS: CUPRIC OXIDE PO SCH (07:45)
[2017-07-01] MEDS: E AC PO SCH (07:45)
[2017-07-01] MEDS: ZNOX PO SCH (07:45)
--- NOTE | 2017-07-01 10:07 | Nephrology Progress Note ---
Date of Encounter: 07/01/17 Time of Encounter: 10:06 - Assessment and Plan (1) ESRD (end stage renal disease) on dialysis Status: Chronic Will continue PD as an outpatient. The extra HD yesterday was helpful. Thank you (2) Anemia Status: Chronic Will monitor and continue EPO as an outpatient. Qualifiers: Anemia type: unspecified type Qualified Code(s): D64.9 - Anemia, unspecified (3) Generalized weakness Status: Acute As per primary Subjective Principal diagnosis: Generalized weakness Interval history: Pt was seen and examined. He did not affirm N/V/D this AM. He voiced interest in discharge today. He already has a PD appt, previously scheduled with me as an outpatient, for monthly PD assessment on Sunday07/02/17 Objective - Vital Signs Vital signs: Vital Signs Temp Pulse Resp BP Pulse Ox 07/01/17 07:52 94 07/01/17 07:45 99.0 F 88 16 129/56 95 07/01/17 04:11 98.7 F 72 18 121/62 94 06/30/17 23:17 98.1 F 81 16 145/66 96 06/30/17 20:44 97.8 F 80 20 139/68 96 06/30/17 17:16 98.4 F 86 16 165/76 96 06/30/17 15:37 98.1 F 18 136/71 06/30/17 14:30 124/61 06/30/17 14:15 130/57 06/30/17 14:00 136/60 06/30/17 13:45 125/61 06/30/17 13:30 120/60 06/30/17 13:15 129/57 06/30/17 13:00 121/69 06/30/17 12:45 117/57 06/30/17 12:30 123/57 06/30/17 12:15 114/68 06/30/17 12:00 132/66 06/30/17 11:45 130/67 06/30/17 11:30 97.7 F 18 126/66 06/30/17 10:50 97.6 F 78 16 129/66 95 Intake and Output 06/30/17 07/01/17 07/01/17 23:59 07:59 15:59 Intake Total 0 / 0 480 / 480 Output Total 460 / 460 0 / 0 Balance -460 / -460 0 / 0 480 / 480 Intake: Oral 0 / 0 480 / 480 Output: Urine 460 / 460 0 / 0 Other: Meal Breakfast Percent of Meal Consumed 100% Total Peritoneal Dialysis 120 239 Output Weight 71.9 kg 69.031 kg Patient Weight 07/01/17 23:59 Weight 69.031 kg - General Appearance Exam: General appearance: chronically ill, frail EENT: ATNC, mucous membranes moist, hearing intact, vision intact Neck: supple Respiratory: clear Cardiology: no edema, normal S1, normal S2 - Dialysis Access Dialysis Vascular Access: Arteriovenous Fistula in the LUE and his PD catheter was without tenderness to palpation Gastrointestinal: no tenderness, no guarding Integumentary: warm and dry Neurologic: alert and oriented x3 Psychiatric: mood/affect appropriate, cooperative - Lab 07/01/17 04:28 07/01/17 04:28 Most recent lab results Calcium 8.6 mg/dL (8.6-10.8) 07/01/17 04:28 Magnesium 2.3 mg/dL (1.6-2.6) 06/29/17 14:56 Consult Discharge Plan - Plan Instructions: Warfarin (By mouth), Anemia (GEN) Referrals: Adolfo Tobias DO [Primary Care Provider] - (web request sent on ) Buster Alex DO [Partnered Physician] -
--- NOTE | 2017-07-01 10:47 | Internal Med Progress Note ---
Date of Encounter: 07/01/17 Time of Encounter: 10:30 - Assessment and plan (1) Generalized weakness Current Visit: Yes Status: Acute Assessment and plan: Generalized weakness - likely secondary to uremia, anemia and ESRD - symptoms now improved Continue regular peritoneal dialysis, continue home meds H&H now stable after 1 unit PRBC transfusion Troponin - 0.07 (chronically elevated and lower than previous visit) - no anginal symptoms and no EKG changes Anticipate discharge home today Advised to follow-up with PCP and nephrology (2) Anemia Current Visit: Yes Status: Chronic Assessment and plan: Mild acute on chronic anemia - secondary to ESRD - no active bleeding - now improved and stable after 1 unit PRBC Qualifiers: Anemia type: unspecified type Qualified Code(s): D64.9 - Anemia, unspecified (3) Elevated troponin Current Visit: Yes Status: Chronic Assessment and plan: Troponin peak is 0.07, chronically elevated, lower than previous visit No EKG changes and no anginal symptoms (4) Atrial fibrillation Current Visit: Yes Status: Chronic Assessment and plan: Chronic atrial fibrillation rate controlled, anticoagulation with Warfarin, continue home meds INR is at therapeutic range today - continue current dose of Warfarin Check PT/INR regularly Qualifiers: Atrial fibrillation type: paroxysmal Qualified Code(s): I48.0 - Paroxysmal atrial fibrillation (5) ESRD (end stage renal disease) on dialysis Current Visit: Yes Status: Chronic Assessment and plan: End-stage renal disease - continue peritoneal dialysis as per nephrology recommendations (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 Not in any distress. Denies chest pain or shortness of breath. Tolerating oral diet well. Patient tolerated hemodialysis well yesterday. Peritoneal dialysis to be continued at home. No fever. Uremia has now improved. No other acute events or complaints. Anticipate discharge home today. - Constitutional Vitals: Temp Pulse Resp BP Pulse Ox 99.0 F 88 16 129/56 94 07/01/17 07:45 07/01/17 07:45 07/01/17 07:45 07/01/17 07:45 07/01/17 07:52 General appearance: Present: A&O X 3, pleasant, no acute distress, underweight, answers questions appropriately - Head Head exam: Present: atraumatic - Eye Eye exam: Present: EOMI - ENT ENT exam: Present: mucous membranes moist - Neck Neck exam general surgery: Present: supple - Respiratory Respiratory exam: Present: CTAB. Absent: rales, rhonchi, wheezes, tachypnea - Cardiovascular Cardiovascular exam: Present: RRR, +S1, +S2 - GI/Abdominal GI/Abdominal exam: Present: soft. Absent: firm, guarding, rigid, tenderness - Extremities Exam Extremities exam: Present: radial pulses palpable and symetrical. Absent: cyanotic, pedal edema - Neurological Exam Neurological exam: Present: alert, oriented X3, no focal deficits. Absent: facial droop, speech deficit Internal Medicine: Result - Labs CBC & Chem 7: 07/01/17 04:28 07/01/17 04:28 Labs: Short CBC 07/01/17 Range/Units 04:28 WBC 6.4 (4.3-11.1) K/mcL Hgb 8.2 L D (12.9-16.9) g/dL Hct 24.7 L (37.5-50.1) % Plt Count 218 (140-400) K/mcL Neutrophils # 4.0 (1.6-8.9) K/mcL BMP 07/01/17 04:28 Sodium 140 Potassium 3.8 D Chloride 98 Carbon Dioxide 29 BUN 73 H D Creatinine 8.20 H Glucose 98 Calcium 8.6 Cardiac Enzymes 06/30/17 Range/Units 10:15 Troponin I 0.07 H* (0-0.03) ng/mL Liver Function 07/01/17 Range/Units 04:28 Total Bilirubin 0.7 (0.2-1.2) mg/dL AST 13 (5-34) Units/L ALT 14 (0-55) Units/L Alkaline Phosphatase 576 H (38-126) Units/L Albumin 2.5 L (3.5-5.0) g/dL - ABG Interpretation ABG results: PT/INR, D-dimer PT 26.1 Seconds (9.4-12.1) H 07/01/17 04:28 Consult Discharge Plan - Plan Referrals: Adolfo Tobias DO [Primary Care Provider] - (web request sent on ) Buster Alex DO [Partnered Physician] -
[2017-07-01 12:16] VITALS: BP 118/49
[2017-07-02 13:29] LABS: Hepatitis B Surface Antibody 0.38 mIU/mL
--- NOTE | 2017-07-02 15:15 | Electrocardiograph Report ---
[address] [place], [place] [address] Test Date: 2017-06-29 Pat Name: Corey Yang Department: 102 Room: 2A16 Gender: M Bottom Turner: : 1940 Requested By: Scott Woods Order Number: [id number] Reading MD: Shasta Sue Measurements Intervals [place] Rate: 79 P: 40 RI: 232 QRS: 101 QRSD: 97 T: 31 QT: 401 QTc: 436 Interpretive Statements SINUS RHYTHM WITH FIRST DEGREE AV BLOCK MARKED RIGHT AXIS DEVIATION [QRS AXIS > 100] LOW QRS VOLTAGE IN EXTREMITY LEADS [QRS DEFLECTION < 0.5 mV IN LIMB LEADS] Electronically Signed On 07-01-2017 22:12:49 EDT by Shasta Sue
== END 2017-07-01 14:50 | disposition home or self-care (01) ==
LOC: 2ANU 14:24 → EMEROO 14:24 → 2ANU 20:03
PROVIDERS: ADMIT Internal Medicine; ATTEND Internal Medicine

== ENCOUNTER 2017-09-18 09:36 | Inpatient (IN) ==
[2017-09-18] MEDS ORDERED: ceFAZolin 2,000 MG in D5% in Water 100 ML IVPB ONE (11:58)
--- NOTE | 2017-09-18 11:58 | History & Physical Report ---
Date of Encounter: 09/18/17 Time of Encounter: 11:57 24 Hour HP Update - Instructions Instructions: If the History and Physical is less than 30 days old and was completed prior to A.M. admission and or procedure and has NOT been updated on calendar day of procedure please complete this update prior to performing procedure. - Update Patient reports changes in Medical Condition: No Changes in examination, assessment, or condition: No Changes in Medication: No Preop tests/diagnostics Reviewed: Yes Surgery Remains Indicated: Yes Consent for Planned Operative Procedure(s) Verified: Yes - Pre-Operative Checklist Preoperative Checklist Indicated: Yes Prophylactic Antibiotic Ordered: Yes Home Medications Include Beta Kai: Yes Beta Kai Taken Today (Day of Surgery): Yes Beta Kai Taken Yesterday (Day Prior to Surgery): Yes Is VTE Prophylaxis Indicated?: Yes
--- NOTE | 2017-09-18 13:27 | Nephrology Consult Note ---
Date of Encounter: 09/18/17 Time of Encounter: 13:27 Assessment and Plan (1) ESRD (end stage renal disease) on dialysis Current Visit: No Status: Acute Plan for HD tomorrow When diet advanced will need renal diet Will need his binders ordered when diet resumed Strict I/Os Avoid nephrotoxins if possible History of Present Illness - Reason for Consult Consult date: 09/18/17 - Chief Complaint ESRD on dialysis - History of Present Illness Mr Yang is a 77 year old male well known to our practice who has ESRD on dialysis at the [facility] on ,W,. Patient has been admitted for carotid surgery and nephrology has been asked to manage his dialysis while hospitalized. Patient did receive a full dialysis treatment yesterday. Past Med Surg Social Fam HX - Past Medical History Medical history: arthritis, atrial fibrillation, CHF, dialysis, GERD, hyperlipidemia, osteoporosis, renal disease, valvular heart disease, other Psychiatric history: no psych history - Past Surgical History Surgical History: appendectomy - Social History Smoking Status: Former smoker Smokeless Tobacco Status: No Alcohol use: none Drug use: none - Family History Mother Family Member Ethnicity: Non- Living Status: Hx Family Neurologic Disorders: Yes (Dementia) Father Living Status: Hx Family Cardiac Disorders: Yes (Heart Attack, HTN,) Medications and Allergies Aspirin [Lo-Dose Aspirin EC] 81 mg PO DAILY 07/26/16 [History] Finasteride [Proscar] 5 mg PO DAILY 07/26/16 [History] Metoprolol [Lopressor] 25 mg PO BID 07/26/16 [History] Sodium Bicarbonate 650 mg PO BID 07/26/16 [History] Vit A/C/E AC/Znox/Cupric Oxide [Eye Vitamin-Minerals Tablet] 1 tab PO BID [History] Polyvinyl Alcohol/Povidone/Pf [Refresh Classic Eye Drops] 1 drop OP BID [History] Polyethylene Glycol 3350 [MiraLAX] 17 gm PO TID 11/20/16 [History] Atorvastatin Calcium [Lipitor] 20 mg PO DAILY 12/22/16 [History] Ferrous Sulfate [Iron] 325 mg PO DAILY #30 tablet 02/12/17 [Rx] Fluticasone Propionate Nasal [Flonase] 1 spr NS DAILY PRN 05/03/17 [History] Mirtazapine [Remeron] 15 mg PO HS 05/03/17 [History] Pantoprazole Sodium [Protonix] 40 mg PO BID 05/03/17 [History] Sevelamer [Renvela] 800 mg PO TIDWM 05/03/17 [History] Ascorbic Acid [Vitamin C] 500 mg PO DAILY 06/29/17 [History] EPINEPHrine [Epipen] 0.3 mg IM AD PRN 06/29/17 [History] 3 Allergy/AdvReac Type Severity Reaction Status Date / Time Amoxicillin Allergy Swelling Verified 08/09/17 08:53 of Lip/Tongue/Throat Penicillins [PCN] Allergy Anaphylaxis Verified 08/09/17 08:53 venom-honey bee Allergy Anaphylaxis Verified 08/09/17 08:53 [bee venom (honey bee)] Review of Systems All Systems: reviewed and no additional remarkable complaints except as stated Constitutional: no fatigue, no fever(s) Cardiovascular: no chest pain, no dyspnea Gastrointestinal: no nausea, no vomiting Neurological: no behavioral changes Exam - Vital Signs Vital signs: Initial Vital Signs Temp Pulse Resp BP Pulse Ox 97.4 F L 74 18 131/78 92 09/18/17 10:54 09/18/17 10:54 09/18/17 10:54 09/18/17 10:54 09/18/17 10:54 Vital Signs - Last 8 Hours Temp Pulse Resp BP Pulse Ox 09/18/17 10:54 97.4 F L 74 18 131/78 92 Intake and Output 09/17/17 09/18/17 09/18/17 23:59 07:59 15:59 Intake Total 0 / 0 Balance 0 / 0 Intake: Oral 0 / 0 Other: Weight 63.4 kg Patient Weight 09/18/17 23:59 Weight 63.4 kg - General Appearance General appearance: well-developed, well-nourished EENT: ATNC, mucous membranes moist, hearing intact, vision intact Neck: supple Respiratory: clear Cardiology: no edema, normal S1, normal S2 - Dialysis Access Dialysis Vascular Access: Arteriovenous Fistula Gastrointestinal: no tenderness, no guarding Neurologic: alert and oriented x3 Psychiatric: mood/affect appropriate, cooperative Consult Discharge Plan - Plan Referrals: Adolfo Tobias DO [Primary Care Provider] - 09/26/17 9:30 am Fabian Reid MD [Partnered Physician] - 10/03/17 11:45 am
--- NOTE | 2017-09-18 16:00 | Anesthesia Evaluation PreOp ---
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 DEVELOPER History: Denies Any Significant HX Other Medical History: Renal (ESRD on HD), GERD, Other (Amyloidosis) Anesthesia History: No Prior Anesthetic Complications, Past Anesthesia ( mediastinoscopy, LN bx, AV fistula, Lap appy) Alcohol Use: none Drug use: none Medications and Allergies Aspirin [Lo-Dose Aspirin EC] 81 mg PO DAILY 07/26/16 [History] Finasteride [Proscar] 5 mg PO DAILY 07/26/16 [History] Metoprolol [Lopressor] 25 mg PO BID 07/26/16 [History] Sodium Bicarbonate 650 mg PO BID 07/26/16 [History] Vit A/C/E AC/Znox/Cupric Oxide [Eye Vitamin-Minerals Tablet] 1 tab PO BID [History] Polyvinyl Alcohol/Povidone/Pf [Refresh Classic Eye Drops] 1 drop OP BID [History] Polyethylene Glycol 3350 [MiraLAX] 17 gm PO TID 11/20/16 [History] Atorvastatin Calcium [Lipitor] 20 mg PO DAILY 12/22/16 [History] Ferrous Sulfate [Iron] 325 mg PO DAILY #30 tablet 02/12/17 [Rx] Fluticasone Propionate Nasal [Flonase] 1 spr NS DAILY PRN 05/03/17 [History] Mirtazapine [Remeron] 15 mg PO HS 05/03/17 [History] Pantoprazole Sodium [Protonix] 40 mg PO BID 05/03/17 [History] Sevelamer [Renvela] 800 mg PO TIDWM 05/03/17 [History] Ascorbic Acid [Vitamin C] 500 mg PO DAILY 06/29/17 [History] EPINEPHrine [Epipen] 0.3 mg IM AD PRN 06/29/17 [History] 3 Allergy/AdvReac Type Severity Reaction Status Date / Time Amoxicillin Allergy Swelling Verified 08/09/17 08:53 of Lip/Tongue/Throat Penicillins [PCN] Allergy Anaphylaxis Verified 08/09/17 08:53 venom-honey bee Allergy Anaphylaxis Verified 08/09/17 08:53 [bee venom (honey bee)] - Meds/Allergy Pre-op Review Medications Reviewed: Yes Allergies Reviewed: Yes Beta Blockers on Current Med List: Yes Anesthesia Results - Labs Laboratory Tests 09/13/17 09/13/17 13:17 13:17 Hgb 11.3 L Hct 34.9 L Plt Count 320 Sodium 140 Potassium 4.4 BUN 49 H Creatinine 5.61 H - Imaging EKG: report reviewed (SINUS RHYTHM MARKED RIGHT AXIS DEVIATION LOW QRS VOLTAGE IN EXTREMITY LEADS) Additional studies: echo: mpressions: Normal LV size and systolic function, LVEF 60%. Mild concentric left ventricular hypertrophy. Indeterminate diastolic function. Normal right ventricular structure and function. Mild aortic regurgitation. Mild mitral regurgitation. No evidence of pulmonary hypertension. Possible ascites is noted. Consider dedicated imaging to further evaluate. Anesthesia Exam Selected Entries 09/18/17 10:54 Temperature 97.4 F L Pulse Rate 74 Respiratory Rate 18 Blood Pressure 131/78 O2 Sat by Pulse Oximetry 92 Oxygen Delivery Method Room Air NPO (# of Hours): 8 - HEENT Pupil (Motor): EOMI Mallampati: II Teeth: Edentulous Oral Opening: Greater than 3 - WEB APPLICATION DEVELOPER LOC: Oriented WEB APPLICATION DEVELOPER Motor: Normal RUE, Normal LUE, Normal RLE, Normal LLE, Normal Face WEB APPLICATION DEVELOPER Sensory: Normal: RUE, LUE, RLE, LLE, Face - Cardiac Rhythm: Regular Murmur: None - Pulmonary Breath Sounds: bilateral Clear Respiratory Effort: Symmetrical Anesthesia Assess/Plan ASA Score: 4, E Modified Chuckie Scale for Level of Consciousness: Cooperative, oriented, and tranquil Anesthetic Plan: General Monitoring Plan: Standard Monitors, A-Line Recovery Plan: PACU (discussed risks of GA, agrees to proceed)
[2017-09-18] MEDS ORDERED: *HR* FentaNYL (PF) 100 MCG/2 ML VIAL ONE (20:08)
[2017-09-18] MEDS ORDERED: *HR* Propofol 200 MG/20 ML VIAL IVP ONE (20:08)
[2017-09-18] MEDS ORDERED: Dexamethasone 4 MG/ML VIAL ONE (20:10)
[2017-09-18] MEDS ORDERED: Ondansetron 4 MG/2 ML VIAL ONE (20:10)
[2017-09-18] MEDS ORDERED: Lidocaine -MPF 2% 2 ML VIAL ONE (20:11)
[2017-09-18] MEDS ORDERED: *HR* Rocuronium Bromide 50 MG/5 ML VIAL ONE (20:11)
[2017-09-18] MEDS ORDERED: *HR* Succinylcholine 200 MG/10 ML VIAL IVP ONE (20:11)
[2017-09-18] MEDS ORDERED: *HR* HYDROmorphone (PF) 1 MG/ML SYRINGE IVP PRN (20:35)
[2017-09-18] MEDS ORDERED: *HR* Promethazine 25 MG/ML VIAL IVP PRN (20:35)
[2017-09-18] MEDS ORDERED: Albuterol 2.5 MG/3 ML NEBULIZER IH ONE (20:35)
[2017-09-18] MEDS ORDERED: Ondansetron 4 MG/2 ML VIAL IVP ONE (20:35)
[2017-09-18] MEDS ORDERED: *HR* Labetalol 20 MG/4 ML SYRINGE IVP PRN (20:35)
[2017-09-18] MEDS ORDERED: Heparin 1,000 UNITS/500 mL NS 500 ML ONE (21:07)
[2017-09-18] MEDS ORDERED: Lidocaine 1% 20 ML MDV ONE (21:07)
[2017-09-18] MEDS ORDERED: *HR* Heparin 5,000 UNIT/ML VIAL ONE (22:30)
--- NOTE | 2017-09-19 00:34 | Operative Note ---
Date of procedure: 09/19/17 Pre-op diagnosis: right carotid stenosis Post-op diagnosis: same Procedure: right carotid endarterectomy with 8 Fr shunt and bovine pericadial patch angioplasty Complications: none Anesthesia: GETA Surgeon: Fabian Reid Estimated blood loss (cc): 100 Specimen: none Condition: stable Disposition: PACU Procedure in Detail: History Corey Yang is a 77-year-old white male with known vascular risk factors and end-stage renal disease. He was found to have abnormal carotid duplex scan. He went for angiography which identified a critical stenosis of the right internal carotid artery. The patient now comes for surgery for this lesion. Procedure After informed consent was obtained the patient was taken to the operating room. General endotracheal anesthesia was established. The right neck was sterilely prepped and draped. A timeout protocol was observed. An oblique incision was made paralleling the anterior border of the sternal cleidomastoid muscle. Dissection was carried down to the carotid sheath. The nervous structures were identified and preserved. The artery was then dissected and selective control obtained of the carotid system. Heparin was administered in a dose of 5000 units intravenously. After a three-minute delay the vessels were clamped with the internal carotid artery clamped first. Using an 11 blade knife and Goyal scissors the artery was opened beginning at the distal common carotid artery and carried up into the internal carotid artery. An 8 Albanian shunt was then inserted into the carotid artery. Patency of the shunt was confirmed by the use of intraoperative Doppler. Evaluation of the plaque revealed a dense calcific plaque corresponding to the angiographic findings with areas of ulceration. The patient had a weblike critical stenosis of an excess of 95%. The endarterectomy was then begun at the distal common carotid artery. It was then carried proximally and distally. The orifice of the external carotid and superior thyroid was also performed. After the bed of the vessel was inspected for any residual debris a bovine pericardial patch angioplasty was performed. This was sewn into position using 2 6-0 Prolene sutures. Leaving a small space open on the suture line the shunt was clamped divided and removed. The final few sutures were then placed area the internal was back flushed and reclamped. The external carotid and common carotid were opened and finally the internal was reopened. Excellent pulsations and Doppler signals were identified throughout the carotid system. Hemostasis was achieved. A superficial cervical block using half percent Marcaine was performed. The wound was then closed in layers using absorbable suture. No drains were placed. Estimated blood loss is 100 mL. A dry sterile dressing was applied. The patient was reversed from anesthesia and extubated in the operating room. He was found to be neurologically intact. He was then taken to the recovery room in stable condition.
[2017-09-19] MEDS ORDERED: 0.9 % Sodium Chloride 500 ML ONE (00:55)
[2017-09-19] MEDS ORDERED: Naloxone 0.4 MG/ML INJ IVP PRN (01:49)
[2017-09-19] MEDS ORDERED: *HR* Morphine 2 MG/ML SYRINGE IVP PRN (01:49)
[2017-09-19] MEDS ORDERED: *HR* EPINEPHrine 1 MG/ML AMPUL IM PRN (01:49)
[2017-09-19] MEDS ORDERED: Fluticasone Propionate Nasal 50 MCG/SPRAY BOTTLE NS PRN (01:49)
[2017-09-19] MEDS ORDERED: Ondansetron 4 MG/2 ML VIAL IVP PRN (01:49)
[2017-09-19] MEDS ORDERED: *HR* HYDROcodone/Acet 5/325 mg TABLET PO PRN (01:49)
[2017-09-19] MEDS ORDERED: Acetaminophen 325 MG TABLET PO PRN (01:49)
--- NOTE | 2017-09-19 03:23 | Anesthesia Evaluation Post Op ---
Date of Encounter: 09/19/17 Time of Encounter: 03:23 - Vital Signs Vital Signs: Vital Signs/O2 Sat, Most Current Temp Pulse Resp BP Pulse Ox 96.6 F L 77 16 120/66 93 09/19/17 03:00 09/19/17 03:00 09/19/17 03:00 09/19/17 03:00 09/19/17 03:00 - Lungs Lungs: Clear Ascult./Percussion - Airway Airway: Non-obstructed - Cardiovascular Regular Rate - Mental Status Mental Status: Alert & Oriented, Answers Appropriately - Pain Pain Scale: 0 Pain Scale used: Numeric (1 - 10) - Hydration Hydration: NPO, Has not voided - Discharge PostOp Status: Transfer Patient to floor
[2017-09-19] MEDS ORDERED: 0.9 % Sodium Chloride 250 ML IVC PRN (06:00)
[2017-09-19 06:04] LABS: Basophils % 0.4 %; Hematocrit 30.8 % (37.5-50.1); Hemoglobin 10.2 g/dL (12.9-16.9); Immature Granulocytes % 0.4 % (0-4); Lymphocytes # 0.3 K/mcL (0.6-4.6); Mean Corpuscular HGB Conc 33.1 g/dL (31.6-35.5); Mean Corpuscular Hemoglobin 31.4 pg (28.0-33.3); Mean Corpuscular Volume 94.8 fL (83.0-100.0); Mean Platelet Volume 11.4 fL (9.4-12.4); Monocytes # 0.2 K/mcL (0.0-1.3); Monocytes % 3.6 %; Neutrophils # 4.5 K/mcL (1.6-8.9); Nucleated Red Blood Cells 0.6 /100 WBC (0); Platelet Count 273 K/mcL (140-400); Red Blood Count 3.25 M/mcL (4.19-5.50); Red Cell Distribution Width 16.3 % (11.5-14.5); Segmented Neutrophils % 90.6 %
[2017-09-19] MEDS ORDERED: 0.9 % Sodium Chloride 1,000 ML PRIME SCH (08:00)
[2017-09-19] MEDS: Multivit/Ca/Min/Fe/FA 1 TAB TABLET PO SCH ×2 (08:42→21:30)
[2017-09-19] MEDS: Aspirin Enteric Coated 81 MG Tablet PO SCH (08:42)
[2017-09-19] MEDS: Finasteride 5 MG TABLET PO SCH (08:42)
[2017-09-19] MEDS: Ascorbic Acid 500 MG TABLET PO SCH (08:42)
[2017-09-19] MEDS: ceFAZolin 2,000 MG in D5% in Water 100 ML IVPB SCH ×2 (08:43→16:10)
--- NOTE | 2017-09-19 11:02 | Nephrology Progress Note ---
Date of Encounter: 09/19/17 Time of Encounter: 09:45 - Assessment and Plan (1) ESRD (end stage renal disease) on dialysis Status: Chronic HD today for clearance. Pt was s/e while on HD and doing well. LUE AVF with +thrill/bruit Thin / cachetic on exam; hx of renal amyloidosis S/p right carotid. Appreciate Dr. Reid. I called his outpt HD unit to update them. (2) Anemia in chronic kidney disease, on chronic dialysis Status: Chronic Goal Hgb is 10-11. Subjective Principal diagnosis: ESRD, s/p carotid surgery Interval history: Pt was s/e and reported feeling well. He did not affirm N/V/D or cramping from HD. He is tentatively scheduled to d/c soon, he said. Objective - Vital Signs Vital signs: Vital Signs Temp Pulse Resp BP Pulse Ox 09/19/17 10:50 104/52 09/19/17 10:20 103/57 09/19/17 09:50 97.8 F 19 108/55 09/19/17 07:30 83 116/60 09/19/17 07:00 97.7 F 82 16 114/57 96 09/19/17 06:54 83 18 113/61 96 09/19/17 05:30 86 20 111/59 93 09/19/17 04:30 97.5 F L 80 16 116/64 94 09/19/17 03:30 97.1 F L 78 18 108/64 94 09/19/17 03:00 96.6 F L 77 16 120/66 93 09/19/17 02:30 96.8 F L 78 20 118/61 93 09/19/17 02:15 96.9 F L 78 18 117/63 93 09/19/17 02:00 96.8 F L 78 18 119/66 93 09/19/17 01:45 96.3 F L 85 20 118/70 94 09/19/17 01:27 97.0 F L 113/58 09/19/17 01:20 62 16 112/59 95 09/19/17 01:10 97.0 F L 63 16 112/58 95 09/19/17 01:00 62 16 111/60 94 09/19/17 00:50 62 16 107/60 96 09/19/17 00:40 96.8 F L 62 16 109/60 94 09/18/17 19:50 97.7 F 85 20 138/74 97 Intake and Output 09/18/17 09/19/17 09/19/17 23:59 07:59 15:59 Intake Total 940 / 940 Output Total 100 / 100 Balance -100 / -100 940 / 940 Intake: IV Fluids 100 / 100 Ancef 2,000 MG In Dextrose 5% 100 / 100 100 ML @ 200 mls/hr IVPB Q8HR GAIL Rx#:[id number] Oral 240 / 240 Intake, Rinseback and Flushes 600 / 600 Output: Estimated Blood Loss 100 / 100 Other: Meal Breakfast Percent of Meal Consumed 100% Hemodialysis Net Fluid Removed 369 (mL) - General Appearance General appearance: Present: well-developed, well-nourished, appears started age EENT: Present: ATNC, PERRL, mucous membranes moist Neck: Present: supple Additional Comments: dressing in place Respiratory: Present: clear Cardiology: Present: no edema, regular rate, regular rhythm, normal S1, normal S2 Dialysis Vascular Access: Arteriovenous Fistula thrill: Yes bruit: Yes Gastrointestinal: Present: normoactive bowel sounds, no tenderness, no guarding Integumentary: Present: no rash, warm and dry Neurologic: Present: no focal deficit, no asterixis, alert and oriented x3 Musculoskeletal: Present: no deformities, no erythema, no cyanosis, no clubbing Psychiatric: Present: mood/affect appropriate, cooperative - Lab 09/19/17 05:45 - VTE Documentation of Mechanical Device: Intermittent pneumatic compression device Consult Discharge Plan - Plan Instructions: Warfarin (By mouth), Carotid Endarterectomy (DC), Peripheral Vascular Disorders (DC), Surgical Site Infections (GEN) Additional Instructions: Keep right neck incision area dry for total of 5 days following surgery Patient may ambulate as tolerated both inside and outside Patient is to use incentive spirometer for the first 2 weeks following discharge Patient is to resume his usual home medications Patient is to restart his anticoagulation therapy(coumadin) on postoperative day #2 Patient is to continue usual hemodialysis schedule on Sunday Referrals: Adolfo Tobias DO [Primary Care Provider] - 09/26/17 9:30 am Fabian Reid MD [Partnered Physician] - 10/03/17 11:45 am
[2017-09-19] MEDS ORDERED: 0.9 % Sodium Chloride 2,000 ML ONE (11:39)
[2017-09-19] MEDS: Artificial Tears SOLN 15 ML BOTTLE OP SCH ×2 (13:44→21:51)
[2017-09-19 15:19] LABS: Hepatitis B Surface Antibody 1.15 mIU/mL; Hepatitis B Surface Antigen Nonreactive (Nonreactive)
--- NOTE | 2017-09-19 17:44 | Vascular/[facility] Progress Note ---
Date of Encounter: 09/19/17 Time of Encounter: 17:42 - Assessment and plan (1) Carotid stenosis Current Visit: Yes Status: Acute Patient has known carotid artery disease. He had undergone an angiogram to confirm a high-grade lesion on duplex scanning. He is status post right carotid endarterectomy late last night. He is neurologically stable following surgery. Due to the late time of surgery and the patient's overall compromised medical state he will stay in the hospital tonight and anticipate discharge to home in morning if he is stable. Qualifiers: Laterality: bilateral Qualified Code(s): I65.23 - Occlusion and stenosis of bilateral carotid arteries (2) ESRD (end stage renal disease) on dialysis Current Visit: Yes Status: Chronic Patient is on chronic kidney replacement therapy with dialysis on Sunday and Fridays. - Subjective Interval history: Patient is postoperative day #1 following a right carotid endarterectomy. The patient has no complaints. He underwent hemodialysis earlier today. Vital Signs, Last 4 Hours Temp Pulse Resp BP Pulse Ox 09/19/17 16:15 97.1 F L 82 18 103/58 96 - Physical Examination General: Present: Conversant, No Apparent Distress HEENT: Present: Atraumatic, Trachea midline Neck: Absent: JVD, Midline deformity, Tracheal deviation Neuro: Present: Alert and responsive, No focal deficits noted, Cranial nerves grossly intact Vascular: Present: Surgical incisions (Dressing on right neck incision is intact.) - VTE Documentation of Mechanical Device: Intermittent pneumatic compression device Results 09/19/17 05:45 Lab Results, Last 24 hours 09/19/17 05:45 WBC 5.0 Hgb 10.2 L Hct 30.8 L Plt Count 273 Consult Discharge Plan - Plan Referrals: Adolfo Tobias DO [Primary Care Provider] - 09/26/17 9:30 am Fabian Reid MD [Partnered Physician] - 10/03/17 11:45 am
--- NOTE | 2017-09-19 17:47 | Discharge Summary ---
Date of Encounter: 09/20/17 Time of Encounter: 08:16 - Discharge Diagnosis (1) Carotid stenosis Priority: Primary Status: Acute Comments: Patient has high-grade lesion on carotid duplex scanning and angiogram of the right carotid system. Qualifiers: Laterality: bilateral Qualified Code(s): I65.23 - Occlusion and stenosis of bilateral carotid arteries (2) ESRD (end stage renal disease) on dialysis Priority: Secondary Status: Chronic Comments: Patient is on chronic hemodialysis therapy Sunday and Fridays. (3) Atrial fibrillation Priority: Secondary Status: Chronic Comments: Patient has long history of atrial fibrillation. He is treated with anticoagulation with Coumadin. Qualifiers: Atrial fibrillation type: paroxysmal Qualified Code(s): I48.0 - Paroxysmal atrial fibrillation - Discharge Medications Home Medications: Aspirin [Lo-Dose Aspirin EC] 81 mg PO DAILY 07/26/16 [History] Finasteride [Proscar] 5 mg PO DAILY 07/26/16 [History] Metoprolol [Lopressor] 25 mg PO BID 07/26/16 [History] Sodium Bicarbonate 650 mg PO BID 07/26/16 [History] Vit A/C/E AC/Znox/Cupric Oxide [Eye Vitamin-Minerals Tablet] 1 tab PO BID [History] Polyvinyl Alcohol/Povidone/Pf [Refresh Classic Eye Drops] 1 drop OP BID [History] Polyethylene Glycol 3350 [MiraLAX] 17 gm PO TID 11/20/16 [History] Atorvastatin Calcium [Lipitor] 20 mg PO DAILY 12/22/16 [History] Ferrous Sulfate [Iron] 325 mg PO DAILY #30 tablet 02/12/17 [Rx] Fluticasone Propionate Nasal [Flonase] 1 spr NS DAILY PRN 05/03/17 [History] Mirtazapine [Remeron] 15 mg PO HS 05/03/17 [History] Pantoprazole Sodium [Protonix] 40 mg PO BID 05/03/17 [History] Sevelamer [Renvela] 800 mg PO TIDWM 05/03/17 [History] Ascorbic Acid [Vitamin C] 500 mg PO DAILY 06/29/17 [History] EPINEPHrine [Epipen] 0.3 mg IM AD PRN 06/29/17 [History] Allergies/Adverse Reactions: 3 Allergy/AdvReac Type Severity Reaction Status Date / Time Amoxicillin Allergy Swelling Verified 08/09/17 08:53 of Lip/Tongue/Throat Penicillins [PCN] Allergy Anaphylaxis Verified 08/09/17 08:53 venom-honey bee Allergy Anaphylaxis Verified 08/09/17 08:53 [bee venom (honey bee)] Date of admission: 09/18/17 09:49 Primary care physician: Adolfo Tobias DO Consults: 09/19/17 08:00 Consult to Dialysis [CONS] ONCE Procedure(s) Performed: Right carotid endarterectomy with patch angioplasty Discharging clinician: Fabian Reid Anticipated date of discharge: 09/20/17 - Patient Status Disposition: Home, Self-Care Condition: Fair Functional capacity at discharge: uses cane/walker Overall status at discharge: patient is progressing back to baseline - Discharge Instructions Follow Up With: Adolfo Tobias DO [Primary Care Provider] - 09/26/17 9:30 am Fabian Reid MD [Partnered Physician] - 10/03/17 11:45 am Additional Instructions: Keep right neck incision area dry for total of 5 days following surgery Patient may ambulate as tolerated both inside and outside Patient is to use incentive spirometer for the first 2 weeks following discharge Patient is to resume his usual home medications Patient is to restart his anticoagulation therapy(coumadin) on postoperative day #2 Patient is to continue usual hemodialysis schedule on Sunday - Diet and Activity Activity: increase activity as tolerated Diet: advance to your usual diet - Hospital Course Hospital course: Mr. Yang is a 77 year old male With high-grade and critical right carotid artery stenosis. Patient also has a history of cardiac arrhythmias and renal failure. His anticoagulation was held due to an angiogram last week and due to the critical nature of the stenosis patient was recommended to undergo surgery in the very near future. Therefore he was dialyzed on Sunday and went to surgery late on Sunday evening. He had an uneventful day on postoperative day #1. He underwent his typical hemodialysis on Sunday. Pt was ready for D/C on POD # 2. - Time Spent with Patient Total time spent providing and/or coordinating discharge services: Exam Vital Signs, Last 4 Hours Temp Pulse Resp BP Pulse Ox 09/19/17 16:15 97.1 F L 82 18 103/58 96 General: Present: Conversant, No Apparent Distress HEENT: Present: Atraumatic, Normocephaly, Trachea midline Neck: Absent: JVD Neuro: Present: Alert and responsive, No focal deficits noted, Cranial nerves grossly intact Vascular: Present: Surgical incisions (Ecchymosis around the right neck incision ), Other (Patent AV fistula left antecubital space) - VTE Documentation of Mechanical Device: Intermittent pneumatic compression device
[2017-09-19] MEDS ORDERED: Mirtazapine 15 MG TABLET PO SCH (21:00)
[2017-09-20 07:42] VITALS: BP 116/57
[2017-09-20] MEDS: Multivit/Ca/Min/Fe/FA 1 TAB TABLET PO SCH (08:14)
[2017-09-20] MEDS: Ascorbic Acid 500 MG TABLET PO SCH (08:14)
[2017-09-20] MEDS: Finasteride 5 MG TABLET PO SCH (08:14)
[2017-09-20] MEDS: Aspirin Enteric Coated 81 MG Tablet PO SCH (08:14)
[2017-09-20] MEDS: Artificial Tears SOLN 15 ML BOTTLE OP SCH (08:15)
--- NOTE | 2017-09-20 08:53 | Nephrology Progress Note ---
Date of Encounter: 09/20/17 Time of Encounter: 08:50 - Assessment and Plan (1) ESRD (end stage renal disease) on dialysis Current Visit: Yes Status: Chronic Patient to be discharged today Follow up tomorrow at [facility] regular outpatient [facility] Continue renal diet Avoid nephrotoxins if possible (2) Carotid stenosis Current Visit: Yes Status: Acute per vascular surgery team Qualifiers: Laterality: bilateral Qualified Code(s): I65.23 - Occlusion and stenosis of bilateral carotid arteries Subjective Principal diagnosis: carotid stenosis, ESRD on dialysis Interval history: Patient seen and examined. Sitting up in chair eating breakfast. States he will be discharged this morning. Objective - Vital Signs Vital signs: Vital Signs Temp Pulse Resp BP Pulse Ox 09/20/17 08:22 87 09/20/17 07:41 86 20 116/57 97 09/20/17 04:44 97.6 F 76 17 114/64 97 09/20/17 00:13 97.6 F 81 17 98/48 94 09/19/17 19:28 98.5 F 76 17 154/76 94 09/19/17 19:11 97.8 F 84 17 115/60 95 09/19/17 16:15 97.1 F L 82 18 103/58 96 09/19/17 13:25 97.4 F L 18 104/50 09/19/17 12:50 103/53 09/19/17 12:20 104/51 09/19/17 11:50 99/48 09/19/17 11:20 98/51 09/19/17 10:50 104/52 09/19/17 10:20 103/57 09/19/17 09:50 97.8 F 19 108/55 Intake and Output 09/19/17 09/20/17 09/20/17 23:59 07:59 15:59 Intake Total 1200 / 1200 120 / 120 Balance 1200 / 1200 120 / 120 Intake: Oral 1200 / 1200 120 / 120 Other: Meal Dinner Percent of Meal Consumed 100% # Voids 1 # Urine Diapers 1 # Bowel Movements 1 1 Weight 63.8 kg Blood Glucose* 222 Patient Weight 09/20/17 23:59 Weight 63.8 kg - General Appearance General appearance: Present: well-developed, well-nourished EENT: Present: ATNC, mucous membranes moist, hearing intact, vision intact Neck: Present: supple Respiratory: Present: clear Cardiology: Present: no edema, normal S1, normal S2 Dialysis Vascular Access: Arteriovenous Fistula Gastrointestinal: Present: no tenderness, no guarding Integumentary: Present: warm and dry Neurologic: Present: alert and oriented x3 Psychiatric: Present: mood/affect appropriate, cooperative - Lab 09/19/17 05:45 - VTE Documentation of Mechanical Device: Intermittent pneumatic compression device Consult Discharge Plan - Plan Additional Instructions: Keep right neck incision area dry for total of 5 days following surgery Patient may ambulate as tolerated both inside and outside Patient is to use incentive spirometer for the first 2 weeks following discharge Patient is to resume his usual home medications Patient is to restart his anticoagulation therapy(coumadin) on postoperative day #2 Patient is to continue usual hemodialysis schedule on Sunday Referrals: Adolfo Tobias DO [Primary Care Provider] - 09/26/17 9:30 am Fabian Reid MD [Partnered Physician] - 10/03/17 11:45 am
--- NOTE | 2017-09-20 13:36 | Event Note ---
Date of Encounter: 09/20/17 Time of Encounter: 08:00 Patient has known COPD with hypoxemia. While in the hospital he was noted to have a room air O2 sat of 80%. On 2 L per nasal cannula his O2 sat was 95%. The patient will be continued on chronic O2 supplement therapy at home upon discharge.
== END 2017-09-20 17:31 | disposition home or self-care (01) | DRG 37 ==
LOC: SAMDAY 09:36 → 2NNU 09:49
PROVIDERS: ADMIT Surgery Vascular Surgery; ATTEND Surgery Vascular Surgery

== ENCOUNTER 2017-10-29 13:41 | Inpatient (IN) ==
--- NOTE | 2017-10-29 14:00 | Emergency Department Note ---
Disposition Clinical Impression: Hip fracture, right Disposition: Admitted As Inpatient Condition: Good General Adult HPI - General Chief complaint: ED Extremity Injury, Upper Stated complaint: right hip pain Time Seen by Provider: 10/29/17 13:52 Source: patient, EMS - History of Present Illness Pain Scale: 0 - Related Data Home Medications Medication Instructions Recorded Confirmed Aspirin [Lo-Dose Aspirin EC] 81 mg PO DAILY 07/26/16 10/29/17 Finasteride [Proscar] 5 mg PO DAILY 07/26/16 10/29/17 Metoprolol [Lopressor] 25 mg PO BID 07/26/16 10/29/17 Sodium Bicarbonate 650 mg PO BID 07/26/16 10/29/17 Vit A/C/E AC/Znox/Cupric Oxide 1 tab PO BID 07/26/16 10/29/17 [Eye Vitamin-Minerals Tablet] Polyvinyl Alcohol/Povidone/Pf 1 drop OP BID 08/18/16 10/29/17 [Refresh Classic Eye Drops] Polyethylene Glycol 3350 [MiraLAX] 17 gm PO Q48H 11/20/16 10/29/17 Atorvastatin Calcium [Lipitor] 20 mg PO HS 12/22/16 10/29/17 Fluticasone Propionate Nasal 1 spr NS DAILY PRN 05/03/17 10/29/17 [Flonase] Mirtazapine [Remeron] 15 mg PO HS 05/03/17 10/29/17 Pantoprazole Sodium [Protonix] 40 mg PO BID 05/03/17 10/29/17 Sevelamer [Renvela] 1,600 mg PO TIDWM 05/03/17 10/29/17 Ascorbic Acid [Vitamin C] 500 mg PO DAILY 06/29/17 10/29/17 EPINEPHrine [Epipen] 0.3 mg IM ONCE PRN 06/29/17 10/29/17 Cetirizine HCl [Zyrtec] 10 mg PO DAILY 10/29/17 10/29/17 Dronabinol [Marinol] 2.5 mg PO DAILY 10/29/17 10/29/17 Montelukast [Singulair] 10 mg PO DAILY 10/29/17 10/29/17 Multivitamin [One Daily Essential] 1 each PO DAILY 10/29/17 10/29/17 Ofloxacin OPTH Drops [Ocuflox] 1 drop OP QID 10/29/17 10/29/17 Oxygen 3 l NS AD 10/29/17 10/29/17 PrednisoLONE Acetate 1% Opth 1 drop OP QID 10/29/17 10/29/17 [PredFORTE 1%] Warfarin [Coumadin] 2.5 mg PO SUMOTUWETHSA 10/29/17 10/29/17 Allergies Allergy/AdvReac Type Severity Reaction Status Date / Time Amoxicillin Allergy Swelling Verified 08/09/17 08:53 of Lip/Tongue/Throat Penicillins [PCN] Allergy Anaphylaxis Verified 08/09/17 08:53 venom-honey bee Allergy Anaphylaxis Verified 08/09/17 08:53 [bee venom (honey bee)] Past Medical History - Past Medical History Medical history: Reports: arthritis, atrial fibrillation, CHF, dialysis, GERD, hyperlipidemia, osteoporosis, renal disease, valvular heart disease, other Surgical history: Reports: appendectomy Psychiatric history: Reports: no psych history - Social History Smoking Status: Never smoker Smokeless Tobacco Status: No Alcohol use: Reports: none Drug use: Reports: none Physical Exam - General General appearance: alert, in no apparent distress Course Vital Signs Temperature 97.9 F 10/29/17 13:44 Pulse Rate 101 10/29/17 13:44 Respiratory Rate 18 10/29/17 13:44 Blood Pressure 111/74 10/29/17 13:44 O2 Sat by Pulse Oximetry 99 10/29/17 13:44 Temperature 98.2 F 10/30/17 11:16 Pulse Rate 76 10/30/17 11:16 Respiratory Rate 15 10/30/17 11:16 Blood Pressure 100/54 10/30/17 11:16 O2 Sat by Pulse Oximetry 96 10/30/17 11:16 Oxygen Delivery Oxygen Delivery Nasal Cannula Medical Decision Making - Lab Data Result diagrams: 10/30/17 03:17 10/30/17 03:17 Lab Results 10/29/17 10/29/17 10/29/17 Range/Units 15:08 15:08 15:08 WBC 11.3 H D (4.3-11.1) K/mcL RBC 3.83 L (4.19-5.50) M/mcL Hgb 11.0 L (12.9-16.9) g/dL Hct 33.6 L (37.5-50.1) % MCV 87.7 (83.0-100.0) fL MCH 28.7 (28.0-33.3) pg MCHC 32.7 (31.6-35.5) g/dL RDW 18.1 H (11.5-14.5) % Plt Count 256 (140-400) K/mcL MPV 11.9 (9.4-12.4) fL Immature Gran % 0.4 (0-4) % Seg Neutrophils % 80.5 % Lymphocytes % 2.7 % Monocytes % 14.0 % Eosinophils % 1.7 % Basophils % 0.7 % Neutrophils # 9.1 H (1.6-8.9) K/mcL Lymphocytes # 0.3 L (0.6-4.6) K/mcL Monocytes # 1.6 H (0.0-1.3) K/mcL Eosinophils # 0.2 (0.0-0.6) K/mcL Basophils # 0.1 (0.0-0.2) K/mcL Nucleated RBCs/100 WBC 0.2 H (0) /100 WBC PT (9.4-12.1) Seconds INR Sodium 136 (136-145) mEq/L Potassium 3.9 (3.5-4.5) mEq/L Chloride 94 L (98-109) mEq/L Carbon Dioxide 33 H (19-29) mEq/L BUN 35 H (8-26) mg/dL Creatinine 3.95 H (0.72-1.25) mg/dL Est GFR ( Amer) 18 L (> 60) Est GFR (Non-Af Amer) 15 L (> 60) BUN/Creatinine Ratio 9 (6-26) Glucose 104 H (70-99) mg/dL Calculated Osmolality 290 (280-300) Calcium 9.0 (8.6-10.8) mg/dL Total Bilirubin 1.8 H (0.2-1.2) mg/dL AST 21 (5-34) Units/L ALT 20 (0-55) Units/L Alkaline Phosphatase 889 H (38-126) Units/L Troponin I 0.14 H* (0-0.03) ng/mL Serum Total Protein 6.3 (6.0-8.3) g/dL Albumin 2.5 L (3.5-5.0) g/dL Globulin 3.8 H (2.4-3.5) g/dL Albumin/Globulin Ratio 0.7 L (1.1-2.2) Blood Type Antibody Screen 10/29/17 10/29/17 Range/Units 15:08 15:08 WBC (4.3-11.1) K/mcL RBC (4.19-5.50) M/mcL Hgb (12.9-16.9) g/dL Hct (37.5-50.1) % MCV (83.0-100.0) fL MCH (28.0-33.3) pg MCHC (31.6-35.5) g/dL RDW (11.5-14.5) % Plt Count (140-400) K/mcL MPV (9.4-12.4) fL Immature Gran % (0-4) % Seg Neutrophils % % Lymphocytes % % Monocytes % % Eosinophils % % Basophils % % Neutrophils # (1.6-8.9) K/mcL Lymphocytes # (0.6-4.6) K/mcL Monocytes # (0.0-1.3) K/mcL Eosinophils # (0.0-0.6) K/mcL Basophils # (0.0-0.2) K/mcL Nucleated RBCs/100 WBC (0) /100 WBC PT 27.2 H (9.4-12.1) Seconds INR 2.5 Sodium (136-145) mEq/L Potassium (3.5-4.5) mEq/L Chloride (98-109) mEq/L Carbon Dioxide (19-29) mEq/L BUN (8-26) mg/dL Creatinine (0.72-1.25) mg/dL Est GFR ( Amer) (> 60) Est GFR (Non-Af Amer) (> 60) BUN/Creatinine Ratio (6-26) Glucose (70-99) mg/dL Calculated Osmolality (280-300) Calcium (8.6-10.8) mg/dL Total Bilirubin (0.2-1.2) mg/dL AST (5-34) Units/L ALT (0-55) Units/L Alkaline Phosphatase (38-126) Units/L Troponin I (0-0.03) ng/mL Serum Total Protein (6.0-8.3) g/dL Albumin (3.5-5.0) g/dL Globulin (2.4-3.5) g/dL Albumin/Globulin Ratio (1.1-2.2) Blood Type O POSITIVE Antibody Screen NEGATIVE Attestation Statement - Attestation Attestation: I examined this patient and my medical decision-making was reviewed with the Resident Physician. I agree with the documented findings, disposition and treatment plan as described except to the extent set forth below. [id number] time provided Patient arrives by EMS from home. He is accompanied by his son. He continues to have right hip pain after a fall several days ago. States pain precludes him from walking. He is elderly and frail appearing on exam. The patient was offered analgesics upon arrival but declined
--- NOTE | 2017-10-29 14:11 | Emergency Department Note ---
Disposition Clinical Impression: Hip fracture, right Qualifiers: Encounter type: subsequent encounter Fracture type: closed Fracture healing: with delayed healing Qualified Code(s): S72.001G - Fracture of unspecified part of neck of right femur, subsequent encounter for closed fracture with delayed healing Disposition: Admitted As Inpatient Condition: Good Referrals: Adolfo Tobias DO [Primary Care Provider] - Forms: ED Satisfaction Letter Time of Disposition: 14:36 General Adult HPI - General Chief complaint: ED Extremity Injury, Upper Stated complaint: right hip pain Time Seen by Provider: 10/29/17 13:52 Source: patient, EMS Mode of arrival: EMS Limitations: no limitations Nursing Notes Reviewed: Yes Vital Signs Reviewed: Yes - History of Present Illness HPI Narrative: Patient is a 69-year-old male who presents today due to right hip pain. He states that he had a fall a few days ago it was mechanical in nature, he states that he tripped over his house slippers. He fell onto his right hip and right elbow. He had x-rays of the hip and right elbow that he states were negative. He was sent home with Percocet 5 mg take as directed. He has been taking these outpatient, he states that these are not helping with his pain in the right hip. He usually walks around with a walker but states that he cannot bear any weight on the right lower extremity. Denies any numbness, tingling of that extremity. Denies hitting his head, any loss of consciousness, any back pain, any other abdominal pain, chest pain, shortness breath. He is currently on Coumadin for A. fib. Pain Scale: 0 - Related Data Home Medications Medication Instructions Recorded Confirmed Aspirin [Lo-Dose Aspirin EC] 81 mg PO DAILY 07/26/16 09/18/17 Finasteride [Proscar] 5 mg PO DAILY 07/26/16 09/18/17 Metoprolol [Lopressor] 25 mg PO BID 07/26/16 09/18/17 Sodium Bicarbonate 650 mg PO BID 07/26/16 09/18/17 Vit A/C/E AC/Znox/Cupric Oxide 1 tab PO BID 07/26/16 09/18/17 [Eye Vitamin-Minerals Tablet] Polyvinyl Alcohol/Povidone/Pf 1 drop OP BID 08/18/16 09/18/17 [Refresh Classic Eye Drops] Polyethylene Glycol 3350 [MiraLAX] 17 gm PO TID 11/20/16 09/18/17 Atorvastatin Calcium [Lipitor] 20 mg PO DAILY 12/22/16 09/18/17 Fluticasone Propionate Nasal 1 spr NS DAILY PRN 05/03/17 09/18/17 [Flonase] Mirtazapine [Remeron] 15 mg PO HS 05/03/17 09/18/17 Pantoprazole Sodium [Protonix] 40 mg PO BID 05/03/17 09/18/17 Sevelamer [Renvela] 800 mg PO TIDWM 05/03/17 09/18/17 Ascorbic Acid [Vitamin C] 500 mg PO DAILY 06/29/17 09/18/17 EPINEPHrine [Epipen] 0.3 mg IM AD PRN 06/29/17 09/18/17 Previous Rx's Medication Instructions Recorded Ferrous Sulfate [Iron] 325 mg PO DAILY #30 tablet 02/12/17 Oxycodone HCl/Acetaminophen 1 each PO QID #16 tablet 10/26/17 [Percocet 5-325 mg Tablet] Allergies Allergy/AdvReac Type Severity Reaction Status Date / Time Amoxicillin Allergy Swelling Verified 08/09/17 08:53 of Lip/Tongue/Throat Penicillins [PCN] Allergy Anaphylaxis Verified 08/09/17 08:53 venom-honey bee Allergy Anaphylaxis Verified 08/09/17 08:53 [bee venom (honey bee)] All systems ED: reviewed and negative except as stated. Constitutional: Denies: fever Cardiovascular: Denies: chest pain Respiratory: Denies: dyspnea Gastrointestinal: Denies: abdominal pain, nausea, vomiting, diarrhea Genitourinary: Denies: dysuria, frequency Musculoskeletal: Reports: arthralgia. Denies: back pain, neck pain, myalgia Neurological: Denies: numbness, paresthesias Past Medical History - Past Medical History Attestation: Yes The following information was validated with the patient. Source: patient Medical history: Reports: arthritis, atrial fibrillation, CHF, dialysis, GERD, hyperlipidemia, osteoporosis, renal disease, valvular heart disease, other Surgical history: Reports: appendectomy Psychiatric history: Reports: no psych history - Social History Smoking Status: Never smoker Smokeless Tobacco Status: No Alcohol use: Reports: none Drug use: Reports: none Physical Exam - General Limitations: no limitations General appearance: alert, in no apparent distress - Head Head exam: atraumatic, normocephalic, normal inspection - Eye Eye exam: Present: normal appearance, PERRL, EOMI - ENT ENT exam: normal exam, normal oropharynx, mucous membranes moist - Neck Neck exam: Present: normal inspection, full ROM, trachea midline - Chest Chest inspection: Present: normal inspection, symmetric chest wall rise - Respiratory Respiratory exam: Present: normal lung sounds bilaterally - Cardiovascular Cardiovascular exam: Present: regular rate, normal rhythm, normal heart sounds - Abdominal Exam Abdominal exam: Present: soft, Non-Tender. Absent: tenderness, distention, guarding, rebound, rigidity - Extremities Exam Extremities exam: Present: other (Right lower extremity is rotated outward, he has significant pain if I tried to flex the hip. He has pain in the right hip with ASIS compression on the right. Neurovascularly intact bilateral LE. ) Course Course Narrative: Vitals within normal limits on my exam. Physical exam shows: Right lower extremity is rotated outward, he has significant pain if I tried to flex the hip. He has pain in the right hip with ASIS compression on the right. Neurovascularly intact bilateral LE. I reviewed the x-rays from October 26. Hip and elbow x-rays were negative for fracture. EKG was obtained here and shows A. fib, rate 92, no acute ST elevation or depression. He has no other complaints or concerns. No other pain in extremities. We will obtain CT of the right hip for further assessment of possible occult fracture that the x-ray did not berry picker. 15:20 CT shows mildly impacted right femoral neck fracture. We will admit the patient for further pain control and ear. With her in consult a along with nephrology for patient's end-stage renal disease with dialysis on MWF. Patient refused pain medication here as he just took percocet prior to presentation. Hip CT 10/29/17 14:07 IMPRESSION: 1. Mildly impacted right femoral neck fracture. 2. Small amount of pelvic ascites. There is ascites within a right inguinal hernia. D/ / 10/29/2017 14:56:42 Chai Espinal MD / rachell Interpreting Provider: Chai Espinal MD Vital Signs Temperature 97.9 F 10/29/17 13:44 Pulse Rate 101 10/29/17 13:44 Respiratory Rate 18 10/29/17 13:44 Blood Pressure 111/74 10/29/17 13:44 O2 Sat by Pulse Oximetry 99 10/29/17 13:44 Temperature 97.9 F 10/29/17 13:44 Pulse Rate 103 10/29/17 15:08 Respiratory Rate 20 10/29/17 15:08 Blood Pressure 105/72 10/29/17 15:08 O2 Sat by Pulse Oximetry 95 10/29/17 15:08 Oxygen Delivery Oxygen Delivery Nasal Cannula Medical Decision Making - MDM Narrative Medical decision making narrative: CT shows mildly impacted right femoral neck fracture. We will admit the patient for further pain control and ear. With her in consult a along with nephrology for patient's end-stage renal disease with dialysis on MWF. Patient refused pain medication here as he just took percocet prior to presentation. - Medical Records Medical records reviewed: Yes I reviewed the patient's medical records. - Lab Data Lab results reviewed: Yes I reviewed the patient's lab results. - Radiology Data Radiology results reviewed: Yes I reviewed the patient's radiology results. Hip CT 10/29/17 14:07 IMPRESSION: 1. Mildly impacted right femoral neck fracture. 2. Small amount of pelvic ascites. There is ascites within a right inguinal hernia. D/ / 10/29/2017 14:56:42 Chai Espinal MD / rachell Interpreting Provider: Chai Espinal MD - EKG Data EKG #1 EKG attestation: Yes I reviewed and interpreted this EKG. EKG results narrative: 10/29/2017 at 13:55. A. fib. Rate 92. QRS 165. QTc 450. Normal axis. Wide QRS complex with occasional PVC. No acute ST elevation or depression. S.B.Adan - Dino Situation: Demographics, MOA Background: Presenting Complaint, Relevant PMH, Meds, & Allergies Assessment: Vital Signs, Course and respsone to treatment, Exam Concerns, Patient/Family Expectation, Pertinant Lab Results, Outstanding Labs Recommendation: Barrier(s) to disposition, Recommendation based on pending studies, treatments, or consults SDeandra Report Given to: Dr. Heike Caraballo. Repor Time: 14:36
[2017-10-29] MEDS ORDERED: *HR* Morphine 2 MG/ML SYRINGE IVP ONE (14:40)
[2017-10-29 15:19] LABS: Basophils # 0.1 K/mcL (0.0-0.2); Basophils % 0.7 %; Eosinophils # 0.2 K/mcL (0.0-0.6); Eosinophils % 1.7 %; Hematocrit 33.6 % (37.5-50.1); INR 2.5; Immature Granulocytes % 0.4 % (0-4); Lymphocytes # 0.3 K/mcL (0.6-4.6); Lymphocytes % 2.7 %; Mean Corpuscular HGB Conc 32.7 g/dL (31.6-35.5); Mean Corpuscular Hemoglobin 28.7 pg (28.0-33.3); Mean Corpuscular Volume 87.7 fL (83.0-100.0); Mean Platelet Volume 11.9 fL (9.4-12.4); Monocytes # 1.6 K/mcL (0.0-1.3); Neutrophils # 9.1 K/mcL (1.6-8.9); Nucleated Red Blood Cells 0.2 /100 WBC (0); Platelet Count 256 K/mcL (140-400); Prothrombin Time 27.2 Seconds (9.4-12.1); Red Blood Count 3.83 M/mcL (4.19-5.50); Red Cell Distribution Width 18.1 % (11.5-14.5); Segmented Neutrophils % 80.5 %
[2017-10-29 15:28] LABS: Albumin 2.5 g/dL (3.5-5.0); Albumin/Globulin Ratio 0.7 (1.1-2.2); Bilirubin,Total 1.8 mg/dL (0.2-1.2); Globulin 3.8 g/dL (2.4-3.5); Potassium 3.9 mEq/L (3.5-4.5); Total Protein 6.3 g/dL (6.0-8.3)
[2017-10-29] MEDS ORDERED: Naloxone 0.4 MG/ML INJ IVP PRN (16:41)
[2017-10-29] MEDS ORDERED: Ondansetron 4 MG/2 ML VIAL IVP PRN (16:41)
--- NOTE | 2017-10-29 16:53 | Internal Med History&Physical ---
<Robles Guillory J - Last Filed: 10/29/17 22:26> Date of Encounter: 10/29/17 Time of Encounter: 16:49 Assessment and Plan (1) Hip fracture, right Current visit: Yes Status: Acute Right hip fracture today F/P mechanical fall on Sunday. Patient reports that he slipped over his house slippers and fell and something popped. CT of right hip reveals mildly impacted right femoral neck fracture. Will likely need surgical repair. RCRI score of 3. Risk factors include CHF, atrial fibrillation, end-stage renal disease and hyperlipidemia. He is a major risk patient with extensive comorbidities requiring further clearance for an intermediate surgery. Additionally he is on Coumadin for atrial fibrillation and will require bridging to Lovenox prior to surgery. My recommendations are to hold Coumadin now, and bridge to Lovenox when he is no longer therapeutic. Hospitalist team to follow. EKG now, also he will need an echocardiogram Consult ortho- to see patient this evening Consult Nephro and Cardio for further recommendations prior to sx d/t risks Morphine and norco for pain management Continuos tele, continuous O2 monitoring CBC, CMP, PT/INR in the morning Qualifiers: Encounter type: subsequent encounter Fracture type: closed Fracture healing: with delayed healing Qualified Code(s): S72.001G - Fracture of unspecified part of neck of right femur, subsequent encounter for closed fracture with delayed healing (2) PNA (pneumonia) Current visit: Yes Status: Acute Continues to have cough, productive of a large amount of sputum last couple of weeks. Today's chest x-ray shows a redemonstration of moderate to large right pleural effusion with consolidation. Does not appear to have congestive heart failure. This is likely pneumonia I will start vancomycin and Levaquin empirically for now. Obtain blood cultures. Qualifiers: Pneumonia type: due to unspecified organism Laterality: right Lung location: unspecified part of lung Qualified Code(s): J18.9 - Pneumonia, unspecified organism (3) ESRD (end stage renal disease) on dialysis Current visit: Yes Status: Chronic ESRD, Sunday hemodialysis. He is followed by a [facility] nephrology. Today's creatinine 3.95 which is patient's baseline. Consult nephrology for further recommendations and further monitoring as patient having a repair for right hip fracture. Nephrology, Dr. Alex has reviewed the patient and his recommendations are as follows-patient completed HD today. Okay from a renal perspective to proceed with hip fracture surgery at anytime (4) Atrial fibrillation Current visit: Yes Status: Chronic Chronic atrial fibrillation, rate controlled. Continue BB, continuous telemetry Qualifiers: Atrial fibrillation type: paroxysmal Qualified Code(s): I48.0 - Paroxysmal atrial fibrillation (5) CHF (congestive heart failure) Current visit: Yes Status: Acute Congestive heart failure was intermediate diastolic dysfunction. Not in acute exacerbation. Last echocardiogram was 11/10 Obtain echocardiogram prior to surgery for clearance Qualifiers: Congestive heart failure type: diastolic Congestive heart failure chronicity: chronic Qualified Code(s): I50.32 - Chronic diastolic (congestive ) heart failure (6) Supratherapeutic INR Current visit: Yes Status: Acute (7) Elevated troponin Current visit: Yes Status: Chronic Chronically elevated troponin. Hemodynamically stable. Denies any chest pain. Has history of ESRD. No EKG changes, continue telemetry, serial troponins (8) Anemia Current visit: Yes Status: Chronic Chronic, stable. Recheck CBC in the morning. No active bleeding noted Qualifiers: Anemia type: unspecified type Qualified Code(s): D64.9 - Anemia, unspecified (9) DVT prophylaxis Current visit: Yes Status: Acute Patient is on Coumadin. We will discontinue Coumadin prior to surgery. Start Lovenox bridge 48 hours after discontinuing Coumadin. Internal Medicine - H&P: HPI Chief complaint: Right hip pain s/p mechanical fall Admitted From: Home Plans for Post Hospital Care: Home History of present illness: Mr. Yang is a 77 year old male with a PMH of arthritis, A. fib, CHF, end- stage renal disease on hemodialysis Sunday and Sunday, HLD osteoporosis. He presents today to [facility] S/P follow that he reports having approximately 4 days ago. He states that he slipped his house slippers and fell onto his right hip and right elbow. He has been taking Percocet for pain but states it is not helping safely seeking care today at [facility]. While in the ED CT of the head was completed and found mildly impacted right femoral neck fracture. Denies any numbness/tingling of the extremity, admits to swelling and pain to palpation. Patient denies ever losing any consciousness. Denies any chest pain, shortness of breath, abdominal pain, dizziness. sually walks around with a walker but states that he cannot bear any weight on the right lower extremity. Denies any numbness, tingling of that extremity. Denies hitting his head, any loss of consciousness, any back pain, any other abdominal pain, chest pain, shortness breath. He does admit to a cough ongoing over the last couple weeks with an increase in sputum production, which is concerning for possible pneumonia Past Med Surg Social Fam HX - Past Medical History Medical history: arthritis, atrial fibrillation, CHF, dialysis, GERD, hyperlipidemia, osteoporosis, renal disease, valvular heart disease, other Psychiatric history: no psych history - Past Surgical History Surgical History: appendectomy - Social History Smoking Status: Never smoker Smokeless Tobacco Status: No Alcohol use: none Drug use: none - Family History Mother Family Member Ethnicity: Non- Living Status: Hx Family Neurologic Disorders: Yes (Dementia) Father Living Status: Hx Family Cardiac Disorders: Yes (Heart Attack, HTN,) Internal Medicine - H&P: Meds Aspirin [Lo-Dose Aspirin EC] 81 mg PO DAILY 07/26/16 [History] Finasteride [Proscar] 5 mg PO DAILY 07/26/16 [History] Metoprolol [Lopressor] 25 mg PO BID 07/26/16 [History] Sodium Bicarbonate 650 mg PO BID 07/26/16 [History] Vit A/C/E AC/Znox/Cupric Oxide [Eye Vitamin-Minerals Tablet] 1 tab PO BID [History] Polyvinyl Alcohol/Povidone/Pf [Refresh Classic Eye Drops] 1 drop OP BID [History] Polyethylene Glycol 3350 [MiraLAX] 17 gm PO Q48H 11/20/16 [History] Atorvastatin Calcium [Lipitor] 20 mg PO HS 12/22/16 [History] Fluticasone Propionate Nasal [Flonase] 1 spr NS DAILY PRN 05/03/17 [History] Mirtazapine [Remeron] 15 mg PO HS 05/03/17 [History] Pantoprazole Sodium [Protonix] 40 mg PO BID 05/03/17 [History] Sevelamer [Renvela] 1,600 mg PO TIDWM 05/03/17 [History] Ascorbic Acid [Vitamin C] 500 mg PO DAILY 06/29/17 [History] EPINEPHrine [Epipen] 0.3 mg IM ONCE PRN 06/29/17 [History] Cetirizine HCl [Zyrtec] 10 mg PO DAILY 10/29/17 [History] Dronabinol [Marinol] 2.5 mg PO DAILY 10/29/17 [History] Montelukast [Singulair] 10 mg PO DAILY 10/29/17 [History] Multivitamin [One Daily Essential] 1 each PO DAILY 10/29/17 [History] Ofloxacin OPTH Drops [Ocuflox] 1 drop OP QID 10/29/17 [History] Oxygen 3 l NS AD 10/29/17 [History] PrednisoLONE Acetate 1% Opth [PredFORTE 1%] 1 drop OP QID 10/29/17 [History] Warfarin [Coumadin] 2.5 mg PO SUMOTUWETHSA 10/29/17 [History] 3 Allergy/AdvReac Type Severity Reaction Status Date / Time Amoxicillin Allergy Swelling Verified 08/09/17 08:53 of Lip/Tongue/Throat Penicillins [PCN] Allergy Anaphylaxis Verified 08/09/17 08:53 venom-honey bee Allergy Anaphylaxis Verified 08/09/17 08:53 [bee venom (honey bee)] All Systems PM: A 10-system review of systems was performed and is negative for pertinent findings except as documented above in the HPI. - Constitutional Constitutional: no chills, no fever(s), no night sweats - EENT Eyes: no change in vision, no discharge, no pain, no photophobia Ears: no ear discharge, no ear pain, no tinnitus Nose, mouth and throat: no dysphagia, no nasal discharge, no neck pain, no sore throat - Cardiovascular Cardiovascular ROS IM: no chest pain, no diaphoresis, no dyspnea, no lightheadedness, no palpitations, no syncope - Respiratory Respiratory: no cough, no dyspnea, no wheezing, no excessive phlegm production - Gastrointestinal Gastrointestinal: no abdominal pain, no diarrhea, no hematemesis, no hematochezia, no melena, no nausea, no vomiting - Musculoskeletal Musculoskeletal ROS IM: arthralgias, limited range of motion (S/P follow right leg), muscle weakness, myalgias, no numbness, no tingling - Integumentary Integumentary IM: no rash, no unusual bruising - Neurological Neurological ROS: no confusion, no convulsions, no focal weakness, no numbness, no tingling, no tremor(s) - Hematologic/Lymphatic Hematologic/Lymphatic: no easy bruising - Constitutional Vitals: Temp Pulse Resp BP Pulse Ox 97.9 F 105 14 105/72 95 10/29/17 13:44 10/29/17 15:56 10/29/17 15:56 10/29/17 15:56 10/29/17 16:00 General appearance: Present: mild distress, A&O X 3, answers questions appropriately - Head Head exam: Present: atraumatic, normocephalic - Eye Eye exam: Present: PERRL, conjuntiva pink, sclera anicteric Pupils: Present: PERRL - Neck Neck exam general surgery: Present: supple, trachea midline. Absent: lymphadenopathy - Respiratory Respiratory exam: Present: CTAB. Absent: accessory muscle use, rales, rhonchi, wheezes - Cardiovascular Cardiovascular exam: Present: RRR, +S1, +S2. Absent: diastolic murmur, gallop, rubs, systolic murmur - GI/Abdominal GI/Abdominal exam: Present: normal bowel sounds, soft, no peritoneal signs. Absent: distended, tenderness - Extremities Exam Extremities exam: Present: normal capillary refill, tenderness, warm, radial pulses palpable and symmetrical. Absent: calf tenderness, cyanotic, full ROM, pedal edema Additional comments: Right hip tender, mildly swollen. No circulatory compromise noted to right lower extremity. No ecchymosis was noted upon examination - Neurological Exam Neurological exam: Present: alert, oriented X3, no focal deficits. Absent: pronater drift, facial droop, speech deficit - Skin Skin exam: Present: dry, intact Internal Med - H&P Results - Labs CBC & Chem 7: 10/29/17 15:08 10/29/17 15:08 - EKG Data -: EKG Interpreted by Myself - EKG Data Prior EKG available for review: yes When compared to previous EKG: there is no significant change EKG comments: 10/29/17 16:54 Atrial fibrillation noted on today's EKG rate control, also noted on prior EKGs. Patient has history of A. fib 10/29/17 16:54 - Diagnostic Studies Other Images Status: image reviewed by me Additional comments: CT of right hip 1. Mildly impacted right femoral neck fracture. 2. Small amount of pelvic ascites. There is ascites within a right inguinal hernia. - VTE Reasons for not Prescribing Prophylaxis: Not indicated-Anticoagulated or INR therapeutic <Aleksey Vlila - Last Filed: 10/29/17 23:15> Date of Encounter: 10/29/17 Time of Encounter: 20:30 - Constitutional Constitutional: fever(s) (subjective ), no chills, no night sweats - Cardiovascular Cardiovascular ROS IM: no chest pain, no diaphoresis, no dyspnea - Respiratory Respiratory: cough, chest congestion, excessive phlegm production, change in phlegm color, no pain on inspiration, no pain with cough - Musculoskeletal Musculoskeletal ROS IM: arthralgias, no back pain - Neurological Neurological ROS: no disequilibrium, no dizziness, no focal weakness, no frequent falls, no headache(s) - Psychiatric Psychiatric: no anxiety, no depression - Endocrine Endocrine IM: no polydipsia, no polyuria - Constitutional Vitals: Temp Pulse Resp BP Pulse Ox 98.5 F 133 17 105/57 95 10/29/17 18:56 10/29/17 18:56 10/29/17 18:56 10/29/17 18:56 10/29/17 18:56 General appearance: Present: cooperative, A&O X 3, pleasant, no acute distress - Eye Eye exam: Present: EOMI, PERRL. Absent: scleral icterus Pupils: Present: normal accommodation - ENT ENT exam: Present: mucous membranes dry, normal exam - Neck Neck exam general surgery: Present: full ROM, supple. Absent: tenderness - Respiratory Respiratory exam: Present: decreased breath sounds (right base), rales (left lung base), rhonchi. Absent: chest wall tenderness, CTAB, tachypnea - Cardiovascular Cardiovascular exam: Present: irregular rhythm, +S1, +S2 - GI/Abdominal GI/Abdominal exam: Present: soft. Absent: tenderness - Extremities Exam Extremities exam: Present: normal capillary refill, warm Internal Med - H&P Results - Labs CBC & Chem 7: 10/29/17 15:08 10/29/17 15:08 Labs: Cardiac Enzymes 10/29/17 Range/Units 21:43 Troponin I 0.13 H* (0-0.03) ng/mL - Impressions ITS Impressions Chest X-Ray 10/29/17 19:49 IMPRESSION: No significant change compared to prior study. Redemonstration of moderate/large right pleural effusion with associated atelectasis/consolidation as well as a stable small left pleural effusion and diffuse vascular congestion. Overall findings are suspicious for pulmonary edema. Atypical infection is also in the differential. D/ / 10/29/2017 20:27:24 Miguel Angel Waldrop MD / Izzy Hagen Interpreting Provider: Miguel Angel Waldrop MD - Diagnostic Studies Chest x-ray Status: image reviewed by me (right sided effusion) - Attending Attestation I discussed the patient ELEM, PMH, ROS, lab data, and exam findings with Robles Guillory CNP. I then saw and examined patient independently as well. Patient described to me about a two week history of productive cough slowly worsening dyspnea, and subjective fevers. He denies any pleurisy. He is coughing up thick, purulent sputum. He has had pleural effusions for quite some time, but based on exam and history I'm concerned he has underlying pneumonia. He denies any anginal type chest pain. I suspect his troponin elevation is due to pneumonia and CKD. Nonetheless, I'd recommend cardiology consultation and nephrology consultation prior to surgery. Additionally, we will treat him for pneumonia. I met up with Dr. Gonzalez and recommended postponing surgery until Sunday rather than tomorrow. As such, this will allow us to optimize his status prior to surgery. Other than my comments above and noted exam findings, I agree with Robles's assessment and plan.
[2017-10-29] MEDS: *HR* Morphine 2 MG/ML SYRINGE IVP PRN (17:00)
--- NOTE | 2017-10-29 18:06 | Nephrology Consult Note ---
Date of Encounter: 11/04/17 Time of Encounter: 17:30 Assessment and Plan (1) ESRD (end stage renal disease) on dialysis Status: Chronic Hx of ESRD from MM on HD every M/W/F. He completed HD already today. Okay from a renal perspective to proceed with hip fracture surgery at anytime. I spent >50% of the encounter counseling the pt, re: ESRD, nutritional mgt, general medical concepts in pt's with hip fracture. Thank you for consulting the [facility] service. Will follow with you. (2) Hip fracture, right Status: Acute As per primary Qualifiers: Encounter type: subsequent encounter Fracture type: closed Fracture healing: with delayed healing Qualified Code(s): S72.001G - Fracture of unspecified part of neck of right femur, subsequent encounter for closed fracture with delayed healing (3) Atrial fibrillation Status: Chronic Chronic. Should consider FFP to help the INR fall faster, and ideally proceed to a more rapid repair of this very pleasant patient's exquisite hip pain. Qualifiers: Atrial fibrillation type: chronic Qualified Code(s): I48.2 - Chronic atrial fibrillation (4) Anemia in chronic kidney disease, on chronic dialysis Status: Chronic Will monitor. Hgb goal is 10-11 in the setting of ESRD. (5) Hypertension Status: Chronic Hold antihypertensive meds on M/W/F AMs before HD, please, if possible. Qualifiers: Hypertension type: essential hypertension Qualified Code(s): I10 - Essential (primary) hypertension History of Present Illness - Reason for Consult Consult date: 10/29/17 end stage renal disease Requesting physician: Lorna Grove - Chief Complaint Right hip fracture - History of Present Illness Corey Yang is a very pleasant 77 y/o WM well-known to me with a pmh of ESRD on HD M/W/F d/t amyloidosis, HTN, SHPT, hypoalbuminemia, anemia of CKD and et al who presented with right hip pain of several days duration. He described tripping on slippers at home and fell from ground level height. He said he "heard" and pop and has had exquisite hip pain ever since. Only slightly improves with completely remaining still and holding his hiip out and rotated. His son was present and helped with the history. The pt was also in the ER a few days before, but XRay imaging appeared okay at the time. He denied any further falls. He remarkably was able to sit through dialysis, and has not missed any of his HD treatments. He denied CP, N/V/D or F/C or dysuria or cramping. He has a hx of AF on coumadin. Past Med Surg Social Fam HX - Past Medical History Medical history: arthritis, atrial fibrillation, CHF, dialysis, GERD, hyperlipidemia, osteoporosis, renal disease, valvular heart disease, other Psychiatric history: no psych history - Past Surgical History Surgical History: appendectomy - Social History Smoking Status: Never smoker Smokeless Tobacco Status: No Alcohol use: none Drug use: none - Family History Mother Family Member Ethnicity: Non- Living Status: Hx Family Neurologic Disorders: Yes (Dementia) Father Living Status: Hx Family Cardiac Disorders: Yes (Heart Attack, HTN,) Medications and Allergies Aspirin [Lo-Dose Aspirin EC] 81 mg PO DAILY 07/26/16 [History] Finasteride [Proscar] 5 mg PO DAILY 07/26/16 [History] Metoprolol [Lopressor] 25 mg PO BID 07/26/16 [History] Sodium Bicarbonate 650 mg PO BID 07/26/16 [History] Vit A/C/E AC/Znox/Cupric Oxide [Eye Vitamin-Minerals Tablet] 1 tab PO BID [History] Polyvinyl Alcohol/Povidone/Pf [Refresh Classic Eye Drops] 1 drop OP BID [History] Polyethylene Glycol 3350 [MiraLAX] 17 gm PO Q48H 11/20/16 [History] Atorvastatin Calcium [Lipitor] 20 mg PO HS 12/22/16 [History] Fluticasone Propionate Nasal [Flonase] 1 spr NS DAILY PRN 05/03/17 [History] Mirtazapine [Remeron] 15 mg PO HS 05/03/17 [History] Pantoprazole Sodium [Protonix] 40 mg PO BID 05/03/17 [History] Sevelamer [Renvela] 1,600 mg PO TIDWM 05/03/17 [History] Ascorbic Acid [Vitamin C] 500 mg PO DAILY 06/29/17 [History] EPINEPHrine [Epipen] 0.3 mg IM ONCE PRN 06/29/17 [History] Cetirizine HCl [Zyrtec] 10 mg PO DAILY 10/29/17 [History] Dronabinol [Marinol] 2.5 mg PO DAILY 10/29/17 [History] Montelukast [Singulair] 10 mg PO DAILY 10/29/17 [History] Multivitamin [One Daily Essential] 1 each PO DAILY 10/29/17 [History] Ofloxacin OPTH Drops [Ocuflox] 1 drop OP QID 10/29/17 [History] Oxygen 3 l NS AD 10/29/17 [History] PrednisoLONE Acetate 1% Opth [PredFORTE 1%] 1 drop OP QID 10/29/17 [History] Warfarin [Coumadin] 2.5 mg PO SUMOTUWETHSA 10/29/17 [History] GuaiFENesin/Dextromethorphan [Robitussin/Dm] 10 ml PO Q6HR PRN #200 ml 11/04/17 [Rx] OxyCODONE/APAP 5/325 [Percocet 5/325 MG] 1 each PO QID PRN #12 tablet 11/04/17 [ Rx] 3 Allergy/AdvReac Type Severity Reaction Status Date / Time Amoxicillin Allergy Swelling Verified 08/09/17 08:53 of Lip/Tongue/Throat Penicillins [PCN] Allergy Anaphylaxis Verified 08/09/17 08:53 venom-honey bee Allergy Anaphylaxis Verified 08/09/17 08:53 [bee venom (honey bee)] Review of Systems All Systems: reviewed and no additional remarkable complaints except as stated Exam - Vital Signs Vital signs: Initial Vital Signs Temp Pulse Resp BP Pulse Ox 97.9 F 101 18 111/74 99 10/29/17 13:44 10/29/17 13:44 10/29/17 13:44 10/29/17 13:44 10/29/17 13:44 Vital Signs - Last 8 Hours Temp Pulse Resp BP Pulse Ox 10/29/17 16:43 97.7 F 99 16 113/63 91 10/29/17 16:00 95 10/29/17 15:56 105 14 105/72 95 Intake and Output 10/29/17 10/29/17 10/29/17 07:59 15:59 23:59 Output Total 0 / 0 Balance 0 / 0 Output: Urine 0 / 0 Other: # Bowel Movements 0 Weight 61.235 kg Blood Glucose* 91 Patient Weight 10/29/17 23:59 Weight 61.235 kg - General Appearance General appearance: well-developed, appears started age, cachectic, fatigue, frail EENT: ATNC, PERRL, mucous membranes moist Neck: supple Respiratory: clear Cardiology: no edema, irregular rhythm, normal S1, normal S2 - Dialysis Access Dialysis Vascular Access: Arteriovenous Fistula thrill: Yes bruit: Yes Gastrointestinal: normoactive bowel sounds, no tenderness, no guarding Integumentary: warm and dry Neurologic: no focal deficit, no asterixis Additional Comments: Right hip very painful to palpation, abducted and laterally rotated with knee in slight flexion. Psychiatric: mood/affect appropriate, cooperative Results - Lab Results 11/04/17 05:16 11/04/17 05:16 Most recent lab results Calcium 9.0 mg/dL (8.6-10.8) 10/29/17 15:08 I reviewed the labs, med lists from home and the inpt orders, vitals, I/Os, imaging: CT hip and recent Xray of the hip, plus progress notes from both the dialysis unit and the [facility] system. Consult Discharge Plan - Plan Additional Instructions: ALF DISCHARGE INSTRUCTIONS Dr. Gonzalez PROCEDURE PERFORMED Reduction and fixation of right hip. Incision care -Keep the dressing clean, dry, and intact Weight bearing status -Weightbearing as tolerated to the bilateral lower extremities. Medications -Pain medication per the discharging medical doctor -Coumadin dose per the hospitalist Other -Knee high JOY hose 23 hours per day -Consult physical and occupational therapy for mobilization. -Up to chair with assistance at least twice per day. -Follow up with your primary care physician to discuss testing for bone mineral density. Follow-up with Dr. Gonzalez at the office 2 weeks from the surgery date for a post operative evaluation. Call the office at [phone] to schedule appointment. Referrals: Adolfo Tobias DO [Primary Care Provider] - Boris Gonzalez MD [Partnered Physician] - (Web requested on 11/04/17 @ 8120) Prescriptions: GuaiFENesin/Dextromethorphan [Robitussin/Dm] 10 ml PO Q6HR PRN #200 ml PRN Reason: Cough OxyCODONE/APAP 5/325 [Percocet 5/325 MG] 1 each PO QID PRN #12 tablet PRN Reason: Moderate Pain
--- NOTE | 2017-10-29 21:41 | Anesthesia Evaluation PreOp ---
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), GERD, Other (amyloidosis) Anesthesia History: No Prior Anesthetic Complications, Past Anesthesia Alcohol Use: none Drug use: none Medications and Allergies Aspirin [Lo-Dose Aspirin EC] 81 mg PO DAILY 07/26/16 [History] Finasteride [Proscar] 5 mg PO DAILY 07/26/16 [History] Metoprolol [Lopressor] 25 mg PO BID 07/26/16 [History] Sodium Bicarbonate 650 mg PO BID 07/26/16 [History] Vit A/C/E AC/Znox/Cupric Oxide [Eye Vitamin-Minerals Tablet] 1 tab PO BID [History] Polyvinyl Alcohol/Povidone/Pf [Refresh Classic Eye Drops] 1 drop OP BID [History] Polyethylene Glycol 3350 [MiraLAX] 17 gm PO Q48H 11/20/16 [History] Atorvastatin Calcium [Lipitor] 20 mg PO HS 12/22/16 [History] Fluticasone Propionate Nasal [Flonase] 1 spr NS DAILY PRN 05/03/17 [History] Mirtazapine [Remeron] 15 mg PO HS 05/03/17 [History] Pantoprazole Sodium [Protonix] 40 mg PO BID 05/03/17 [History] Sevelamer [Renvela] 1,600 mg PO TIDWM 05/03/17 [History] Ascorbic Acid [Vitamin C] 500 mg PO DAILY 06/29/17 [History] EPINEPHrine [Epipen] 0.3 mg IM ONCE PRN 06/29/17 [History] Cetirizine HCl [Zyrtec] 10 mg PO DAILY 10/29/17 [History] Dronabinol [Marinol] 2.5 mg PO DAILY 10/29/17 [History] Montelukast [Singulair] 10 mg PO DAILY 10/29/17 [History] Multivitamin [One Daily Essential] 1 each PO DAILY 10/29/17 [History] Ofloxacin OPTH Drops [Ocuflox] 1 drop OP QID 10/29/17 [History] Oxygen 3 l NS AD 10/29/17 [History] PrednisoLONE Acetate 1% Opth [PredFORTE 1%] 1 drop OP QID 10/29/17 [History] Warfarin [Coumadin] 2.5 mg PO SUMOTUWETHSA 10/29/17 [History] 3 Allergy/AdvReac Type Severity Reaction Status Date / Time Amoxicillin Allergy Swelling Verified 08/09/17 08:53 of Lip/Tongue/Throat Penicillins [PCN] Allergy Anaphylaxis Verified 08/09/17 08:53 venom-honey bee Allergy Anaphylaxis Verified 08/09/17 08:53 [bee venom (honey bee)] - Meds/Allergy Pre-op Review Medications Reviewed: Yes Allergies Reviewed: Yes Beta Blockers on Current Med List: Yes Anesthesia Results - Labs 10/29/17 15:08 10/29/17 15:08 Laboratory Tests 09/13/17 10/29/17 13:17 15:08 PT 27.2 H INR 2.5 APTT 38.2 H - Imaging EKG: report reviewed (09/11/2017 SINUS RHYTHM MARKED RIGHT AXIS DEVIATION LOW QRS VOLTAGE IN EXTREMITY LEADS) Additional studies: 11/20/2016 Echo Impressions: Normal LV size and systolic function, LVEF 60%. Mild concentric left ventricular hypertrophy. Indeterminate diastolic function. Normal right ventricular structure and function. Mild aortic regurgitation. Mild mitral regurgitation. No evidence of pulmonary hypertension. Possible ascites is noted. Consider dedicated imaging to further evaluate. 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
[2017-10-29] MEDS ORDERED: Vancomycin 1,000 MG in D5% in Water 250 ML IVPB SCH (22:00)
--- NOTE | 2017-10-29 22:33 | Orthopedic Consult Note ---
Date of Encounter: 10/30/17 Time of Encounter: 22:32 Assessment and Plan (1) Hip fracture, right Current Visit: Yes Status: Acute Right impacted subcapital femoral neck fracture. I did discuss treatment options and my recommendation was for percutaneous screw fixation in order to stabilize the hip and reduce the risk of displacement. The risks discussed included but were not limited to stiffness, bleeding, infection, blood clots, damage to neurovascular structures, tendons, ligaments, and bone. Also discussed was the risk of continued symptoms and possible need for further procedures. I did discuss the anesthesia risks including stroke, heart attack, and . I did discuss the reasonable, foreseeable postoperative course with the patient. He did wish to proceed and consent will be obtained. I did speak with the hospitalist last night and given his multiple medical comorbidities and pleural effusion seen on the chest x-ray that we should anticipate surgery on Sunday. Qualifiers: Encounter type: subsequent encounter Fracture type: closed Fracture healing: with delayed healing Qualified Code(s): S72.001G - Fracture of unspecified part of neck of right femur, subsequent encounter for closed fracture with delayed healing History of Present Illness HPI: This patient is a 77-year-old male with multiple medical comorbidities including cardiac disease and end-stage renal disease. He sustained a fall on Sunday and had acute right hip pain, however he was not found to have any injury. Here he presented yesterday where x-rays and a CT scan did reveal a subcapital right impacted femoral neck fracture. He was admitted to the hospitalist. He has isolated pain to the right hip and groin. No other injuries noted. He has no complaints. No numbness, tingling, or any other associate signs or symptoms. Pain is worse with any movement of the right lower extremity. Better with rest. No other modifying factors. Past Med Surg Social Fam HX - Past Medical History Medical history: arthritis, atrial fibrillation, CHF, dialysis, GERD, hyperlipidemia, osteoporosis, renal disease, valvular heart disease, other Psychiatric history: no psych history - Past Surgical History Surgical History: appendectomy - Social History Smoking Status: Never smoker Smokeless Tobacco Status: No Alcohol use: none Drug use: none - Family History Mother Family Member Ethnicity: Non- Living Status: Hx Family Neurologic Disorders: Yes (Dementia) Father Living Status: Hx Family Cardiac Disorders: Yes (Heart Attack, HTN,) Medications and Allergies Aspirin [Lo-Dose Aspirin EC] 81 mg PO DAILY 07/26/16 [History] Finasteride [Proscar] 5 mg PO DAILY 07/26/16 [History] Metoprolol [Lopressor] 25 mg PO BID 07/26/16 [History] Sodium Bicarbonate 650 mg PO BID 07/26/16 [History] Vit A/C/E AC/Znox/Cupric Oxide [Eye Vitamin-Minerals Tablet] 1 tab PO BID [History] Polyvinyl Alcohol/Povidone/Pf [Refresh Classic Eye Drops] 1 drop OP BID [History] Polyethylene Glycol 3350 [MiraLAX] 17 gm PO Q48H 11/20/16 [History] Atorvastatin Calcium [Lipitor] 20 mg PO HS 12/22/16 [History] Fluticasone Propionate Nasal [Flonase] 1 spr NS DAILY PRN 05/03/17 [History] Mirtazapine [Remeron] 15 mg PO HS 05/03/17 [History] Pantoprazole Sodium [Protonix] 40 mg PO BID 05/03/17 [History] Sevelamer [Renvela] 1,600 mg PO TIDWM 05/03/17 [History] Ascorbic Acid [Vitamin C] 500 mg PO DAILY 06/29/17 [History] EPINEPHrine [Epipen] 0.3 mg IM ONCE PRN 06/29/17 [History] Cetirizine HCl [Zyrtec] 10 mg PO DAILY 10/29/17 [History] Dronabinol [Marinol] 2.5 mg PO DAILY 10/29/17 [History] Montelukast [Singulair] 10 mg PO DAILY 10/29/17 [History] Multivitamin [One Daily Essential] 1 each PO DAILY 10/29/17 [History] Ofloxacin OPTH Drops [Ocuflox] 1 drop OP QID 10/29/17 [History] Oxygen 3 l NS AD 10/29/17 [History] PrednisoLONE Acetate 1% Opth [PredFORTE 1%] 1 drop OP QID 10/29/17 [History] Warfarin [Coumadin] 2.5 mg PO SUMOTUWETHSA 10/29/17 [History] 3 Allergy/AdvReac Type Severity Reaction Status Date / Time Amoxicillin Allergy Swelling Verified 08/09/17 08:53 of Lip/Tongue/Throat Penicillins [PCN] Allergy Anaphylaxis Verified 08/09/17 08:53 venom-honey bee Allergy Anaphylaxis Verified 08/09/17 08:53 [bee venom (honey bee)] All Systems Reviewed: A 10-system review of systems was performed and is negative for pertinent findings except as documented above in the HPI. Physical Exam - Constitutional Vitals: Temp Pulse Resp BP Pulse Ox 98.5 F 133 17 105/57 95 10/29/17 18:56 10/29/17 18:56 10/29/17 18:56 10/29/17 18:56 10/29/17 18:56 Constitutional -Vitals reviewed -The patient is well developed and well nourished. -Mood is pleasant. -The patient is well groomed. Psychiatric -The patient is fully alert and oriented x 3. Respiratory: -Respiratory effort normal Abdomen: -Soft abdomen -Non tender -Non distended: Left upper extremity: -No deformities. The overlying skin is intact. No obvious signs of acute trauma. -No tenderness to palpation throughout. -No significant pain with passive motion of the shoulder, elbow, wrist, and fingers within the limits of the bed. -Able to make an "OK" sign, cross the index and long fingers, and extend the thumb. -Sensation grossly intact to light touch throughout the median, radial, and ulnar distributions. -Radial pulse is present; Fingers have good capillary refill. Right upper extremity: -No deformities. The overlying skin is intact with the exception of a small superficial laceration over the elbow. -No tenderness to palpation throughout. -No significant pain with passive motion of the shoulder, elbow, wrist, and fingers within the limits of the bed. -Able to make an "OK" sign, cross the index and long fingers, and extend the thumb. -Sensation grossly intact to light touch throughout the median, radial, and ulnar distributions. -Radial pulse is present; Fingers have good capillary refill. Left lower extremity: -No deformities. The overlying skin is intact. No obvious signs of acute trauma. -No tenderness to palpation throughout. -No pain with passive motion of the hip, knee, ankle, and toes within the limits of the bed. -No pain with axial loading of the thigh. -Able to dorsiflex and plantarflex the ankle and toes. -Sensation is grossly intact to light touch throughout the sural, saphenous, superficial peroneal, and deep peroneal distributions. -Toes have good capillary refill. Right lower extremity: -No deformities noted -The overlying skin is intact. -There is tenderness in the groin region as well as the proximal lateral thigh. -I did not range the hip due to the known fracture. -No tenderness along the distal thigh, leg, ankle, foot, or toes. -Able to dorsiflex and plantarflex the ankle and toes. -Sensation is grossly intact to light touch throughout the sural, saphenous, superficial peroneal, and deep peroneal distributions. -Toes have good capillary refill. Diagnostic Imaging: I did personally review and interpret x-rays of the right elbow which do not show any fractures or dislocations. X-rays as well as a CT scan of the right hip show a subcapital impacted femoral neck fracture. Results - Labs Result Diagrams: 10/30/17 03:17 10/30/17 03:17 Labs: Abnormal lab results WBC 11.3 K/mcL (4.3-11.1) H D 10/29/17 15:08 RBC 3.83 M/mcL (4.19-5.50) L 10/29/17 15:08 Hgb 11.0 g/dL (12.9-16.9) L 10/29/17 15:08 Hct 33.6 % (37.5-50.1) L 10/29/17 15:08 RDW 18.1 % (11.5-14.5) H 10/29/17 15:08 Neutrophils # 9.1 K/mcL (1.6-8.9) H 10/29/17 15:08 Lymphocytes # 0.3 K/mcL (0.6-4.6) L 10/29/17 15:08 Monocytes # 1.6 K/mcL (0.0-1.3) H 10/29/17 15:08 Nucleated RBCs/100 WBC 0.2 /100 WBC (0) H 10/29/17 15:08 PT 27.2 Seconds (9.4-12.1) H 10/29/17 15:08 Chloride 94 mEq/L (98-109) L 10/29/17 15:08 Carbon Dioxide 33 mEq/L (19-29) H 10/29/17 15:08 BUN 35 mg/dL (8-26) H 10/29/17 15:08 Creatinine 3.95 mg/dL (0.72-1.25) H 10/29/17 15:08 Est GFR ( Amer) 18 (> 60) L 10/29/17 15:08 Est GFR (Non-Af Amer) 15 (> 60) L 10/29/17 15:08 Glucose 104 mg/dL (70-99) H 10/29/17 15:08 POC Glucose 91 (58-89) H 10/29/17 16:48 Total Bilirubin 1.8 mg/dL (0.2-1.2) H 10/29/17 15:08 Alkaline Phosphatase 889 Units/L (38-126) H 10/29/17 15:08 Troponin I 0.14 ng/mL (0-0.03) H* 10/29/17 15:08 Albumin 2.5 g/dL (3.5-5.0) L 10/29/17 15:08 Globulin 3.8 g/dL (2.4-3.5) H 10/29/17 15:08 Albumin/Globulin Ratio 0.7 (1.1-2.2) L 10/29/17 15:08 All other labs normal. Consult Discharge Plan - Plan Referrals: Adolfo Tobias DO [Primary Care Provider] -
[2017-10-29] MEDS ORDERED: Vancomycin 1,000 MG in D5% in Water 250 ML IVPB ONE (23:00)
[2017-10-30] MEDS: *HR* OxyCODONE/APAP 5/325 TABLET PO PRN ×2 (03:54→09:17)
[2017-10-30 04:02] LABS: INR 2.5; Prothrombin Time 27.2 Seconds (9.4-12.1)
[2017-10-30 04:05] LABS: Activated Partial Thrombo Time 38.3 Seconds (26.0-36.0)
[2017-10-30 04:06] LABS: Basophils # 0.1 K/mcL (0.0-0.2); Basophils % 0.6 %; Eosinophils # 0.4 K/mcL (0.0-0.6); Eosinophils % 4.1 %; Hematocrit 29.8 % (37.5-50.1); Hemoglobin 9.9 g/dL (12.9-16.9); Immature Granulocytes % 0.3 % (0-4); Lymphocytes # 0.3 K/mcL (0.6-4.6); Lymphocytes % 3.6 %; Mean Corpuscular HGB Conc 33.2 g/dL (31.6-35.5); Mean Corpuscular Hemoglobin 29.4 pg (28.0-33.3); Mean Corpuscular Volume 88.4 fL (83.0-100.0); Mean Platelet Volume 12.1 fL (9.4-12.4); Monocytes # 1.2 K/mcL (0.0-1.3); Monocytes % 13.6 %; Neutrophils # 6.8 K/mcL (1.6-8.9); Platelet Count 248 K/mcL (140-400); Red Blood Count 3.37 M/mcL (4.19-5.50); Red Cell Distribution Width 17.7 % (11.5-14.5); Segmented Neutrophils % 77.8 %
[2017-10-30 04:13] LABS: Albumin 2.1 g/dL (3.5-5.0); Albumin/Globulin Ratio 0.6 (1.1-2.2); Bilirubin,Total 1.5 mg/dL (0.2-1.2); Calcium 8.7 mg/dL (8.6-10.8); Globulin 3.5 g/dL (2.4-3.5); Potassium 4.1 mEq/L (3.5-4.5); Total Protein 5.6 g/dL (6.0-8.3)
[2017-10-30] MEDS ORDERED: Levofloxacin 750 MG/150 ML 750 MG/150 ML BAG IVPB ONE (06:00)
[2017-10-30] MEDS: Aspirin Enteric Coated 81 MG Tablet PO SCH (07:55)
[2017-10-30] MEDS: Loratadine 10 MG TABLET PO SCH (07:55)
[2017-10-30] MEDS: Finasteride 5 MG TABLET PO SCH (07:56)
[2017-10-30] MEDS: Ascorbic Acid 500 MG TABLET PO SCH (07:57)
[2017-10-30] MEDS: Multivit/Ca/Min/Fe/FA 1 TAB TABLET PO SCH (07:57)
--- NOTE | 2017-10-30 10:15 | Nephrology Progress Note ---
Date of Encounter: 10/30/17 Time of Encounter: 10:13 - Assessment and Plan (1) ESRD (end stage renal disease) on dialysis Current Visit: Yes Status: Chronic Plan for HD tomorrow Continue renal diet Avoid nephrotoxins if possible (2) Hip fracture, right Current Visit: Yes Status: Acute per orthopedic team Qualifiers: Encounter type: subsequent encounter Fracture type: closed Fracture healing: with delayed healing Qualified Code(s): S72.001G - Fracture of unspecified part of neck of right femur, subsequent encounter for closed fracture with delayed healing Subjective Principal diagnosis: right hip fracture, ESRD on dialysis Interval history: Patient seen and examined. States he is doing well. Objective - Vital Signs Vital signs: Vital Signs Temp Pulse Resp BP Pulse Ox 10/30/17 08:00 94 10/30/17 07:19 98.1 F 103 16 99/54 94 10/30/17 07:16 98.4 F 64 16 145/81 95 10/30/17 04:57 98.5 F 95 16 106/65 95 10/29/17 23:45 97.9 F 83 16 102/61 91 10/29/17 18:56 98.5 F 133 17 105/57 95 10/29/17 16:43 97.7 F 99 16 113/63 91 10/29/17 16:00 95 10/29/17 15:56 105 14 105/72 95 Intake and Output 10/29/17 10/30/17 10/30/17 23:59 07:59 15:59 Intake Total 520 / 520 240 / 240 Output Total 0 / 0 Balance 0 / 0 520 / 520 240 / 240 Intake: IV Fluids 400 / 400 Levaquin Premix 750mg/150 mL 150 / 150 750 mg In 150 ml @ 100 mls/hr IVPB 0600 ONE Rx#:[id number] Vancocin 1,000 MG In Dextrose 5 250 / 250 % 250 ML @ 166.667 mls/hr IVPB ONCE ONE Rx#:[id number] Oral 120 / 120 240 / 240 Output: Urine 0 / 0 Other: Meal Breakfast Percent of Meal Consumed 80% # Voids 0 # Bowel Movements 0 Weight 61.235 kg 62.12 kg Blood Glucose* 91 Patient Weight 10/30/17 23:59 Weight 62.12 kg - General Appearance General appearance: Present: well-developed, well-nourished EENT: Present: ATNC, mucous membranes moist, hearing intact, vision intact Neck: Present: supple Cardiology: Present: no edema, normal S1, normal S2 Dialysis Vascular Access: Arteriovenous Fistula Gastrointestinal: Present: no tenderness, no guarding Integumentary: Present: warm and dry Neurologic: Present: alert and oriented x3 Psychiatric: Present: mood/affect appropriate, cooperative - Lab 10/30/17 03:17 10/30/17 03:17 Most recent lab results Calcium 8.7 mg/dL (8.6-10.8) 10/30/17 03:17 - VTE Reasons for not Prescribing Prophylaxis: Not indicated-Anticoagulated or INR therapeutic Consult Discharge Plan - Plan Referrals: Adolfo Tobias DO [Primary Care Provider] -
--- NOTE | 2017-10-30 10:51 | Cardiology Consult Note ---
<Maclolm R - Last Filed: 10/30/17 11:28> Date of Encounter: 10/30/17 Time of Encounter: 10:50 Assessment and Plan (1) Pre-operative cardiovascular examination Current Visit: Yes Status: Acute Pre-op cardiology risk stratification requested prior to orthopedic surgery for right hip fx. No recent ischemic evaluation. Pt denies chest pain or worsening dyspnea. Risk factors for CAD--carotid disease s/p CEA, ESRD, diastolic CHF. Elevated troponins--0.14, 0.13, 0.12-chronic and in setting of PNA and ESRD on dialysis. Echo 10/2016 EF preserved. Discussed with Dr. Gurrola--check limited echo. Recommend stress test for ischemic evaluation tomorrow AM. Continue to follow. Will risk stratify once stress test results. (2) Atrial fibrillation Current Visit: Yes Status: Chronic Known A-Fib. Continue BB. Anticoagulated on Coumadin, currently on hold with Lovenox bridging per primary team/surgery. Qualifiers: Atrial fibrillation type: unspecified Qualified Code(s): I48.91 - Unspecified atrial fibrillation (3) Elevated troponin Current Visit: Yes Status: Chronic Troponins 0.14, 0.13, 0.12--flat and adynamic in setting of PNA and ESRD on dialysis. Hx of chronically elevated troponins. Echo 10/2016 EF 60%. Recheck limited echo. Stress test as above, no recent ischemia eval. (4) Bilateral pleural effusion Current Visit: No Status: Acute Moderate-large right pleural effusion on CXR with stable small left pleural effusion. Diffuse vascular congestion. Pulmonary edema vs. infection--primary team treating for PNA. EF 60% on echo 10/2016. Recheck limited to re-evaluate EF. Dialysis for volume status/fluid removal. Discussion w patient/family: The assessment and plan as outlined above was discussed with the patient and/or family members who expressed understanding and agreement. All questions were answered. Thank you for involving us in the care of your patient. Please call with any questions. I will discuss all the above with Dr. Gurrola and make changes as necessary. History of Present Illness Consult date: 10/30/17 Requesting physician: Robles Guillory Consult reason: pre-op risk stratification Chief complaint: right hip pain History of present illness: Mr. Yang is a 77 year old male with a history of amyloidosis status post chemotherapy, end-stage renal disease on dialysis, diastolic congestive heart failure, atrial fibrillation on Coumadin, carotid disease s/p right CEA, and chronic respiratory failure on home O2. He presented to [facility] s/p mechanical fall --reports he slipped on his house slippers and fell onto his right hip and right elbow. He was found to have a mildly impacted right femoral neck fracture. He has been seen by ortho, plan is for screw fixation. Cardiology consulted for cardiac risk stratification. Pt denies chest pain or worsening dyspnea. He denies palpitations. Only complaint is hip pain. CXR showed moderate -large right pleural effusion and a stable small left pleural effusion and diffuse vascular congestion vs infection. He is being treated for PNA. Troponins 0.14, 0.13, 0.12--chronically elevated. Echo 10/2016 Normal LV size and systolic function, LVEF 60%. Mild concentric left ventricular hypertrophy. Normal right ventricular structure and function. Mild aortic regurgitation. Mild mitral regurgitation. No evidence of pulmonary hypertension. Possible ascites is noted. Consider dedicated imaging to further evaluate. Past Med Surg Social Fam HX - Past Medical History Medical history: arthritis, atrial fibrillation, CHF, dialysis, GERD, hyperlipidemia, osteoporosis, renal disease, valvular heart disease, other Psychiatric history: no psych history - Past Surgical History Surgical History: appendectomy - Social History Smoking Status: Never smoker Smokeless Tobacco Status: No Alcohol use: none Drug use: none - Family History Mother Family Member Ethnicity: Non- Living Status: Hx Family Neurologic Disorders: Yes (Dementia) Father Living Status: Hx Family Cardiac Disorders: Yes (Heart Attack, HTN,) Medications and Allergies Aspirin [Lo-Dose Aspirin EC] 81 mg PO DAILY 07/26/16 [History] Finasteride [Proscar] 5 mg PO DAILY 07/26/16 [History] Metoprolol [Lopressor] 25 mg PO BID 07/26/16 [History] Sodium Bicarbonate 650 mg PO BID 07/26/16 [History] Vit A/C/E AC/Znox/Cupric Oxide [Eye Vitamin-Minerals Tablet] 1 tab PO BID [History] Polyvinyl Alcohol/Povidone/Pf [Refresh Classic Eye Drops] 1 drop OP BID [History] Polyethylene Glycol 3350 [MiraLAX] 17 gm PO Q48H 11/20/16 [History] Atorvastatin Calcium [Lipitor] 20 mg PO HS 12/22/16 [History] Fluticasone Propionate Nasal [Flonase] 1 spr NS DAILY PRN 05/03/17 [History] Mirtazapine [Remeron] 15 mg PO HS 05/03/17 [History] Pantoprazole Sodium [Protonix] 40 mg PO BID 05/03/17 [History] Sevelamer [Renvela] 1,600 mg PO TIDWM 05/03/17 [History] Ascorbic Acid [Vitamin C] 500 mg PO DAILY 06/29/17 [History] EPINEPHrine [Epipen] 0.3 mg IM ONCE PRN 06/29/17 [History] Cetirizine HCl [Zyrtec] 10 mg PO DAILY 10/29/17 [History] Dronabinol [Marinol] 2.5 mg PO DAILY 10/29/17 [History] Montelukast [Singulair] 10 mg PO DAILY 10/29/17 [History] Multivitamin [One Daily Essential] 1 each PO DAILY 10/29/17 [History] Ofloxacin OPTH Drops [Ocuflox] 1 drop OP QID 10/29/17 [History] Oxygen 3 l NS AD 10/29/17 [History] PrednisoLONE Acetate 1% Opth [PredFORTE 1%] 1 drop OP QID 10/29/17 [History] Warfarin [Coumadin] 2.5 mg PO SUMOTUWETHSA 10/29/17 [History] 3 Allergy/AdvReac Type Severity Reaction Status Date / Time Amoxicillin Allergy Swelling Verified 08/09/17 08:53 of Lip/Tongue/Throat Penicillins [PCN] Allergy Anaphylaxis Verified 08/09/17 08:53 venom-honey bee Allergy Anaphylaxis Verified 08/09/17 08:53 [bee venom (honey bee)] All Systems Review: A 10-system review of systems was performed and is negative for pertinent findings except as documented above in the HPI. Physical Examination Vital Signs, Last 4 Hours Temp Pulse Resp BP Pulse Ox 10/30/17 08:00 94 10/30/17 07:19 98.1 F 103 16 99/54 94 10/30/17 07:16 98.4 F 64 16 145/81 95 Vital Signs Temp Pulse Resp BP Pulse Ox 10/30/17 08:00 94 10/30/17 07:19 98.1 F 103 16 99/54 94 10/30/17 07:16 98.4 F 64 16 145/81 95 10/30/17 04:57 98.5 F 95 16 106/65 95 10/29/17 23:45 97.9 F 83 16 102/61 91 10/29/17 18:56 98.5 F 133 17 105/57 95 10/29/17 16:43 97.7 F 99 16 113/63 91 10/29/17 16:00 95 10/29/17 15:56 105 14 105/72 95 10/29/17 15:08 103 20 105/72 95 10/29/17 13:44 97.9 F 101 18 111/74 99 Intake and Output 10/29/17 10/30/17 10/30/17 23:59 07:59 15:59 Intake Total 520 / 520 240 / 240 Output Total 0 / 0 Balance 0 / 0 520 / 520 240 / 240 Intake: IV Fluids 400 / 400 Levaquin Premix 750mg/150 mL 150 / 150 750 mg In 150 ml @ 100 mls/hr IVPB 0600 ONE Rx#:[id number] Vancocin 1,000 MG In Dextrose 5 250 / 250 % 250 ML @ 166.667 mls/hr IVPB ONCE ONE Rx#:[id number] Oral 120 / 120 240 / 240 Output: Urine 0 / 0 Other: Meal Breakfast Percent of Meal Consumed 80% # Voids 0 # Bowel Movements 0 Weight 61.235 kg 62.12 kg 62.12 kg Blood Glucose* 91 91 Patient Weight 10/30/17 23:59 Weight 62.12 kg General: Conversant, No Apparent Distress HEENT: Atraumatic, Normocephaly, Mucus Membranes Moist Neck: No JVD, Normal carotid pulses Cardiac: Other (irregularly irregular) Lungs: Other (diminished) Neuro: Alert and responsive, No focal deficits noted Abdomen: Soft, Non-Tender Skin: No rashes noted on visualized skin Musculoskeletal: No Chest Wall Tenderness Extremities: No Clubbing, No Cyanosis, No Edema, Normal Pulses Results 10/30/17 03:17 10/30/17 03:17 Lab Results 10/29/17 10/30/17 10/30/17 21:43 03:17 03:17 WBC 8.7 Hgb 9.9 L Hct 29.8 L Plt Count 248 INR APTT Sodium Potassium Chloride Carbon Dioxide BUN Creatinine Glucose Calcium Total Bilirubin AST ALT Alkaline Phosphatase Troponin I 0.13 H* 0.12 H* 10/30/17 10/30/17 03:17 03:17 WBC Hgb Hct Plt Count INR 2.5 APTT 38.3 H Sodium 136 Potassium 4.1 Chloride 92 L Carbon Dioxide 32 H BUN 44 H Creatinine 4.66 H Glucose 75 Calcium 8.7 Total Bilirubin 1.5 H AST 17 ALT 17 Alkaline Phosphatase 722 H Troponin I Short CBC 10/30/17 10/29/17 Range/Units 03:17 15:08 WBC 8.7 11.3 H D (4.3-11.1) K/mcL Hgb 9.9 L 11.0 L (12.9-16.9) g/dL Hct 29.8 L 33.6 L (37.5-50.1) % Plt Count 248 256 (140-400) K/mcL Neutrophils # 6.8 9.1 H (1.6-8.9) K/mcL BMP 10/30/17 10/29/17 Range/Units 03:17 15:08 Sodium 136 136 (136-145) mEq/L Potassium 4.1 3.9 (3.5-4.5) mEq/L Chloride 92 L 94 L (98-109) mEq/L Carbon Dioxide 32 H 33 H (19-29) mEq/L BUN 44 H 35 H (8-26) mg/dL Creatinine 4.66 H 3.95 H (0.72-1.25) mg/dL Glucose 75 104 H (70-99) mg/dL Calcium 8.7 9.0 (8.6-10.8) mg/dL Cardiac Enzymes 10/30/17 10/29/17 10/29/17 Range/Units 03:17 21:43 15:08 Troponin I 0.12 H* 0.13 H* 0.14 H* (0-0.03) ng/mL Liver Function 10/30/17 10/29/17 Range/Units 03:17 15:08 Total Bilirubin 1.5 H 1.8 H (0.2-1.2) mg/dL AST 17 21 (5-34) Units/L ALT 17 20 (0-55) Units/L Alkaline Phosphatase 722 H 889 H (38-126) Units/L Albumin 2.1 L 2.5 L (3.5-5.0) g/dL Impressions Hip CT 10/29/17 14:07 IMPRESSION: 1. Mildly impacted right femoral neck fracture. 2. Small amount of pelvic ascites. There is ascites within a right inguinal hernia. D/ / 10/29/2017 14:56:42 Chai Espinal MD / earalen Interpreting Provider: Chai Espinal MD Chest X-Ray 10/29/17 19:49 IMPRESSION: No significant change compared to prior study. Redemonstration of moderate/large right pleural effusion with associated atelectasis/consolidation as well as a stable small left pleural effusion and diffuse vascular congestion. Overall findings are suspicious for pulmonary edema. Atypical infection is also in the differential. D/ / 10/29/2017 20:27:24 Miguel Angel Waldrop MD / Izzy Hagen Interpreting Provider: Miguel Angel Waldrop MD Active Medications Ascorbic Acid (Vitamin C) 500 mg PO DAILY [facility] Stop: 05/01/18 09:01 Last Admin: 10/30/17 07:57 Dose: 500 mg Aspirin (Aspirin Ec) 81 mg PO DAILY [facility] Stop: 05/01/18 09:01 Last Admin: 10/30/17 07:55 Dose: 81 mg Atorvastatin Calcium (Lipitor) 20 mg PO DAILY [facility] Stop: 05/01/18 09:01 Last Admin: 10/30/17 07:55 Dose: 20 mg Dronabinol (Marinol) 2.5 mg PO DAILY [facility] Stop: 05/01/18 09:01 Last Admin: 10/30/17 07:56 Dose: 2.5 mg Finasteride (Proscar) 5 mg PO DAILY [facility] PRN Reason: Protocol Stop: 05/01/18 09:01 Last Admin: 10/30/17 07:56 Dose: 5 mg Levofloxacin/Dextrose (Levaquin Premix 500mg/100ml) 500 mg in 100 mls @ 100 mls /hr IVPB Q48H [facility] Stop: 05/03/18 06:01 Loratadine (Claritin) 10 mg PO DAILY [facility] Stop: 05/01/18 09:01 Last Admin: 10/30/17 07:55 Dose: 10 mg Metoprolol Tartrate (Lopressor) 25 mg PO BID [facility] Stop: 05/01/18 09:01 Last Admin: 10/30/17 07:56 Dose: 25 mg Mirtazapine (Remeron) 15 mg PO HS [facility] Stop: 05/01/18 21:01 Montelukast Sodium (Singulair) 10 mg PO DAILY [facility] Stop: 05/01/18 09:01 Last Admin: 10/30/17 07:56 Dose: 10 mg Morphine Sulfate (Morphine Sulfate) 2 mg IVP Q4HR PRN PRN Reason: Severe Pain Stop: 04/30/18 16:42 Last Admin: 10/29/17 17:00 Dose: 2 mg Multivitamins/Calcium (Thera M Plus) 1 tab PO DAILY [facility] Stop: 05/01/18 09:01 Last Admin: 10/30/17 07:57 Dose: 1 tab Naloxone HCl (Narcan) 0.4 mg IVP Q2MIN PRN PRN Reason: Opioid Reversal Stop: 04/30/18 16:42 Omeprazole (Prilosec) 40 mg PO BID [facility] Stop: 04/30/18 21:01 Last Admin: 10/30/17 07:56 Dose: 40 mg Ondansetron HCl (Zofran) 4 mg IVP Q8HR PRN PRN Reason: Nausea And Vomiting Stop: 04/30/18 16:42 Oxycodone/Acetaminophen (Percocet 5/325) 1 each PO QID PRN PRN Reason: Moderate Pain Stop: 04/30/18 17:01 Last Admin: 10/30/17 09:17 Dose: 1 each Polyethylene Glycol (Miralax) 17 gm PO TID [facility] Stop: 04/30/18 21:01 Last Admin: 10/30/17 07:56 Dose: Not Given Sevelamer HCl (Renvela) 800 mg PO TIDWM [facility] Stop: 04/30/18 17:01 Last Admin: 10/30/17 07:54 Dose: 800 mg Sodium Bicarbonate (Sodium Bicarbonate) 650 mg PO BID [facility] Stop: 05/01/18 09:01 Last Admin: 10/30/17 07:57 Dose: 650 mg Vancomycin HCl (Vancocin) 0 each IVPB RPHPROT PRN PRN Reason: PULSE DOSE Stop: 04/30/18 22:02 - Imaging and Cardiology Echo: report reviewed - EKG Interpretation EKG results cardiology: personally reviewed Consult Discharge Plan - Plan Referrals: Adolfo Tobias DO [Primary Care Provider] - <Nito Gurrola - Last Filed: 10/30/17 16:18> Date of Encounter: 10/30/17 Assessment and Plan Discussion w patient/family: The assessment and plan as outlined above was discussed with the patient and/or family members who expressed understanding and agreement. All questions were answered. Thank you for involving us in the care of your patient. Please call with any questions. History of Present Illness History of present illness: Mr. Yang is a 77 year old male All Systems Review: A 10-system review of systems was performed and is negative for pertinent findings except as documented above in the HPI. Physical Examination Vital Signs, Last 4 Hours Temp Pulse Resp BP Pulse Ox 10/30/17 11:16 98.2 F 76 15 100/54 96 Results 10/30/17 03:17 10/30/17 03:17 Lab Results 10/29/17 10/30/17 10/30/17 21:43 03:17 03:17 WBC 8.7 Hgb 9.9 L Hct 29.8 L Plt Count 248 INR APTT Sodium Potassium Chloride Carbon Dioxide BUN Creatinine Glucose Calcium Total Bilirubin AST ALT Alkaline Phosphatase Troponin I 0.13 H* 0.12 H* 10/30/17 10/30/17 03:17 03:17 WBC Hgb Hct Plt Count INR 2.5 APTT 38.3 H Sodium 136 Potassium 4.1 Chloride 92 L Carbon Dioxide 32 H BUN 44 H Creatinine 4.66 H Glucose 75 Calcium 8.7 Total Bilirubin 1.5 H AST 17 ALT 17 Alkaline Phosphatase 722 H Troponin I
--- NOTE | 2017-10-30 14:59 | Internal Med Progress Note ---
Date of Encounter: 10/30/17 Time of Encounter: 09:00 - Assessment and plan (1) Hip fracture, right Current Visit: Yes Status: Acute Assessment and plan: Orthopedic consult on case. Plan for surgery on Sunday. Continue pain management Qualifiers: Encounter type: subsequent encounter Fracture type: closed Fracture healing: with delayed healing Qualified Code(s): S72.001G - Fracture of unspecified part of neck of right femur, subsequent encounter for closed fracture with delayed healing (2) PNA (pneumonia) Current Visit: Yes Status: Acute Assessment and plan: Patient is on Vanco and Levaquin. WBC is trending down. Patient denies shortness of breath. Pneumonia has improved. It is not practical to wait for pneumonia totally resolved to have surgery, which may take weeks. However, will continue antibiotic before, during and after surgery. Patient is at high risk because he is on vancomycin need close monitoring. He also need surgical intervention. Qualifiers: Pneumonia type: due to Pneumococcus Laterality: right Lung location: unspecified part of lung Qualified Code(s): J13 - Pneumonia due to Streptococcus pneumoniae (3) ESRD (end stage renal disease) on dialysis Current Visit: Yes Status: Chronic Assessment and plan: On hemodialysis (4) Atrial fibrillation Current Visit: Yes Status: Chronic Assessment and plan: Heart rate is well controlled. On Coumadin but on hold now for surgery. Qualifiers: Atrial fibrillation type: chronic Qualified Code(s): I48.2 - Chronic atrial fibrillation (5) CHF (congestive heart failure) Current Visit: Yes Status: Acute Assessment and plan: Patient appears euvolemic at this point Qualifiers: Congestive heart failure type: diastolic Congestive heart failure chronicity: chronic Qualified Code(s): I50.32 - Chronic diastolic (congestive ) heart failure (6) DVT prophylaxis Current Visit: Yes Status: Acute Assessment and plan: Patient is on Coumadin and INR is therapeutic. Now hold Coumadin for surgery. - Time Spent With Patient Greater than 35 minutes - Subjective Interval history: I saw and examined the patient today. Still complaining of hip pain. Denies chest pain or shortness of breath. Mild chronic cough. Vital signs stable no fever. Cardiology and nephrology consult appreciated. Plan for stress test and hemodialysis tomorrow prior to surgery. Will continue antibiotic for suspected pneumonia during and after surgery. - Constitutional Vitals: Temp Pulse Resp BP Pulse Ox 98.2 F 76 15 100/54 96 10/30/17 11:16 10/30/17 11:16 10/30/17 11:16 10/30/17 11:16 10/30/17 11:16 General appearance: Present: cooperative, A&O X 3, pleasant, no acute distress - Head Head exam: Present: atraumatic, normocephalic - Eye Eye exam: Present: PERRL, conjuntiva pink, sclera anicteric Pupils: Present: PERRL - Neck Neck exam general surgery: Present: supple, trachea midline. Absent: lymphadenopathy - Respiratory Respiratory exam: Present: CTAB. Absent: accessory muscle use, rales, rhonchi, wheezes - Cardiovascular Cardiovascular exam: Present: irregular rhythm, +S1, +S2. Absent: diastolic murmur, gallop, rubs, systolic murmur - GI/Abdominal GI/Abdominal exam: Present: normal bowel sounds, soft, no peritoneal signs. Absent: distended, tenderness - Extremities Exam Extremities exam: Present: warm, radial pulses palpable and symmetrical. Absent : calf tenderness, cyanotic, pedal edema Additional comments: Right hip pain due to fracture - Neurological Exam Neurological exam: Present: CN II-XII intact, oriented X3, no focal deficits. Absent: pronater drift, facial droop, speech deficit - Skin Skin exam: Present: dry, intact Internal Medicine: Result - Labs CBC & Chem 7: 10/30/17 03:17 10/30/17 03:17 Labs: Short CBC 10/30/17 Range/Units 03:17 WBC 8.7 (4.3-11.1) K/mcL Hgb 9.9 L (12.9-16.9) g/dL Hct 29.8 L (37.5-50.1) % Plt Count 248 (140-400) K/mcL Neutrophils # 6.8 (1.6-8.9) K/mcL BMP 10/30/17 03:17 Sodium 136 Potassium 4.1 Chloride 92 L Carbon Dioxide 32 H BUN 44 H Creatinine 4.66 H Glucose 75 Calcium 8.7 Cardiac Enzymes 10/29/17 10/30/17 Range/Units 21:43 03:17 Troponin I 0.13 H* 0.12 H* (0-0.03) ng/mL Liver Function 10/30/17 Range/Units 03:17 Total Bilirubin 1.5 H (0.2-1.2) mg/dL AST 17 (5-34) Units/L ALT 17 (0-55) Units/L Alkaline Phosphatase 722 H (38-126) Units/L Albumin 2.1 L (3.5-5.0) g/dL - ABG Interpretation ABG results: PT/INR, D-dimer PT 27.2 Seconds (9.4-12.1) H 10/30/17 03:17 - Impressions Impressions Echocardiogram 10/29/17 16:59 Impressions: LVEF 55-60%. Normal LV chamber size and function. Mild concentric left ventricular hypertrophy. Indeterminate diastolic function. Normal right ventricular structure and function. Mild tricuspid regurgitation. No pulmonary hypertension. Left Ventricular Wall Motion: Rest Echo Findings All wall segments showed normal motion. Findings: Study Quality * Technically adequate exam. ECG Findings * Atrial fibrillation. Left Ventricle * LVEF 55-60%. * Normal LV chamber size and function. * Mild concentric left ventricular hypertrophy. * Indeterminate diastolic function. Right Ventricle * Normal right ventricular structure and function. Left Atrium * Mild to moderately dilated left atrium. Right Atrium * Moderately dilated right atrium. Interatrial Septum * Interatrial septum not well evaluated. Aortic Valve * Trileaflet aortic valve. * Mildly sclerotic aortic valve leaflets. * Trace aortic regurgitation. * No aortic stenosis. Mitral Valve * Normal mitral valve structure and function. * No mitral stenosis. * Trace mitral regurgitation. Tricuspid Valve * Normal tricuspid valve structure. * Mild tricuspid regurgitation. * No pulmonary hypertension. Pulmonic Valve * Pulmonic valve is not well visualized. Aorta * Normally sized aortic root. Pericardium * The pericardium appears normal. IVC * Normal IVC dimensions and inspiratory collapse. Pulmonary Artery * Normal visualized portions of the main pulmonary artery. Chest X-Ray 10/29/17 19:49 IMPRESSION: No significant change compared to prior study. Redemonstration of moderate/large right pleural effusion with associated atelectasis/consolidation as well as a stable small left pleural effusion and diffuse vascular congestion. Overall findings are suspicious for pulmonary edema. Atypical infection is also in the differential. D/ / 10/29/2017 20:27:24 Miguel Angel Waldrop MD / Izzy Hagen Interpreting Provider: Miguel Angel Waldrop MD - VTE Reasons for not Prescribing Prophylaxis: Not indicated-Anticoagulated or INR therapeutic Consult Discharge Plan - Plan Referrals: Adolfo Tobias DO [Primary Care Provider] -
[2017-10-30] MEDS: Mirtazapine 15 MG TABLET PO SCH (20:24)
[2017-10-31] MEDS ORDERED: Vancomycin 1,000 MG in D5% in Water 250 ML IVPB ONE
[2017-10-31] MEDS: *HR* Morphine 2 MG/ML SYRINGE IVP PRN ×2 (00:32→22:33)
[2017-10-31 04:06] LABS: Basophils # 0.1 K/mcL (0.0-0.2); Eosinophils # 0.2 K/mcL (0.0-0.6); Eosinophils % 3.4 %; Hemoglobin 9.1 g/dL (12.9-16.9); Immature Granulocytes % 0.3 % (0-4); Lymphocytes # 0.3 K/mcL (0.6-4.6); Lymphocytes % 3.8 %; Mean Corpuscular HGB Conc 33.7 g/dL (31.6-35.5); Mean Corpuscular Hemoglobin 29.2 pg (28.0-33.3); Mean Corpuscular Volume 86.5 fL (83.0-100.0); Mean Platelet Volume 12.1 fL (9.4-12.4); Monocytes # 1.2 K/mcL (0.0-1.3); Monocytes % 16.6 %; Neutrophils # 5.3 K/mcL (1.6-8.9); Nucleated Red Blood Cells 0.6 /100 WBC (0); Platelet Count 248 K/mcL (140-400); Red Blood Count 3.12 M/mcL (4.19-5.50); Red Cell Distribution Width 17.2 % (11.5-14.5); Segmented Neutrophils % 74.9 %
[2017-10-31] MEDS ORDERED: 0.9 % Sodium Chloride 250 ML IVC PRN (04:21)
[2017-10-31 04:23] LABS: Calcium 8.7 mg/dL (8.6-10.8); Potassium 4.9 mEq/L (3.5-4.5)
[2017-10-31] MEDS ORDERED: Regadenoson 0.4 MG/5 ML SYRINGE IVP ONE (06:18)
[2017-10-31] MEDS ORDERED: 0.9 % Sodium Chloride 2,000 ML ONE (07:28)
--- NOTE | 2017-10-31 09:34 | Nephrology Progress Note ---
Date of Encounter: 10/31/17 Time of Encounter: 08:35 - Assessment and Plan (1) ESRD (end stage renal disease) on dialysis Status: Chronic Will happily defer to Ortho but to help optimize his electrolyte status and also since is his standared dialysis day, I've ordered HD for today. I've ordered HD for 1st shift but if Ortho would like to take him at any time, this would be fine. (2) Hip fracture, right Status: Acute As per primary Qualifiers: Encounter type: subsequent encounter Fracture type: closed Fracture healing: with delayed healing Qualified Code(s): S72.001G - Fracture of unspecified part of neck of right femur, subsequent encounter for closed fracture with delayed healing (3) Atrial fibrillation Status: Chronic Could consider FFP if this would help normalize the INR enough sufficiently to safely proceed with surgery. Qualifiers: Atrial fibrillation type: chronic Qualified Code(s): I48.2 - Chronic atrial fibrillation (4) Anemia in chronic kidney disease, on chronic dialysis Status: Chronic Goal Hgb is 10-11 May need DEE DEE and/or IV iron as needed. Subjective Principal diagnosis: right hip fracture, ESRD on dialysis Interval history: Pt was s/e and did not affirm N/V/D or uremic symptoms. Objective - Vital Signs Vital signs: Vital Signs Temp Pulse Resp BP Pulse Ox 10/31/17 05:29 97.6 F 87 15 100/60 97 10/31/17 03:50 98.4 F 74 14 99/59 97 10/31/17 01:16 99.4 F 118 16 96/57 95 10/30/17 20:02 97.8 F 101 15 101/59 94 10/30/17 15:40 97.1 F L 99 15 90/57 98 10/30/17 11:16 98.2 F 76 15 100/54 96 Intake and Output 10/30/17 10/31/17 10/31/17 23:59 07:59 15:59 Intake Total 120 / 120 750 / 750 Output Total 0 / 0 0 / 0 Balance 120 / 120 750 / 750 Intake: Oral 120 / 120 750 / 750 Output: Urine 0 / 0 0 / 0 Other: Meal Dinner Percent of Meal Consumed 40% Blood Glucose* 107 - General Appearance Exam: General appearance: well-developed, appears started age, cachectic, fatigue, frail EENT: ATNC, PERRL, mucous membranes moist Neck: supple Respiratory: clear Cardiology: no edema, irregular rhythm, normal S1, normal S2 - Dialysis Access Dialysis Vascular Access: Arteriovenous Fistula thrill: Yes bruit: Yes Gastrointestinal: normoactive bowel sounds, no tenderness, no guarding Integumentary: warm and dry Neurologic: no focal deficit, no asterixis Additional Comments: Right hip very painful to palpation, abducted and laterally rotated with knee in slight flexion. Psychiatric: mood/affect appropriate, cooperative - Lab 11/04/17 05:16 11/04/17 05:16 Most recent lab results Calcium 8.7 mg/dL (8.6-10.8) 10/31/17 03:26 - VTE Reasons for not Prescribing Prophylaxis: Not indicated-Anticoagulated or INR therapeutic Consult Discharge Plan - Plan Additional Instructions: ASSISTED DISCHARGE INSTRUCTIONS Dr. Gonzalez PROCEDURE PERFORMED Reduction and fixation of right hip. Incision care -Keep the dressing clean, dry, and intact Weight bearing status -Weightbearing as tolerated to the bilateral lower extremities. Medications -Pain medication per the discharging medical doctor -Coumadin dose per the hospitalist Other -Knee high JOY hose 23 hours per day -Consult physical and occupational therapy for mobilization. -Up to chair with assistance at least twice per day. -Follow up with your primary care physician to discuss testing for bone mineral density. Follow-up with Dr. Gonzalez at the office 2 weeks from the surgery date for a post operative evaluation. Call the office at [phone] to schedule appointment. Referrals: Adolfo Tobias DO [Primary Care Provider] - Boris Gonzalez MD [Partnered Physician] - (Web requested on 11/04/17 @ 0181) Prescriptions: GuaiFENesin/Dextromethorphan [Robitussin/Dm] 10 ml PO Q6HR PRN #200 ml PRN Reason: Cough OxyCODONE/APAP 5/325 [Percocet 5/325 MG] 1 each PO QID PRN #12 tablet PRN Reason: Moderate Pain
[2017-10-31 11:14] LABS: Hepatitis B Surface Antibody 0.63 mIU/mL; Hepatitis B Surface Antigen Nonreactive (Nonreactive)
[2017-10-31] MEDS: Loratadine 10 MG TABLET PO SCH (11:36)
[2017-10-31] MEDS: Aspirin Enteric Coated 81 MG Tablet PO SCH (11:36)
[2017-10-31] MEDS: Ascorbic Acid 500 MG TABLET PO SCH (11:37)
[2017-10-31] MEDS: Finasteride 5 MG TABLET PO SCH (11:37)
[2017-10-31] MEDS: Multivit/Ca/Min/Fe/FA 1 TAB TABLET PO SCH (11:37)
[2017-10-31 13:25] LABS: INR 2.7; Prothrombin Time 29.4 Seconds (9.4-12.1)
--- NOTE | 2017-10-31 14:18 | Cardiology Progress Note ---
Date of Encounter: 10/31/17 Time of Encounter: 14:16 Assessment and Plan (1) Pre-operative cardiovascular examination Current Visit: Yes Status: Acute Pre-op cardiology risk stratification requested prior to orthopedic surgery for right hip fx. No recent ischemic evaluation. Pt denies chest pain or worsening dyspnea. Risk factors for CAD--carotid disease s/p CEA, ESRD, diastolic CHF. Elevated troponins--0.14, 0.13, 0.12-chronic and in setting of PNA and ESRD on dialysis. Echo 10/2016 EF preserved. Limited echo EF 55%, normal wall motion, mild concentric LVH. Pharmacologic nuclear stress test resulted--Gated EF 70%, perfusion imaging negative for ischemia or infarct. Pt is acceptable intermediate risk to proceed with orthopedic surgery. Cardiology signing off. Reconsult PRN. (2) Atrial fibrillation Current Visit: Yes Status: Chronic Known A-Fib. Continue BB. Anticoagulated on Coumadin, currently on hold, INR still therapeutic 2.7. Qualifiers: Atrial fibrillation type: chronic Qualified Code(s): I48.2 - Chronic atrial fibrillation (3) Elevated troponin Current Visit: Yes Status: Chronic Troponins 0.14, 0.13, 0.12--flat and adynamic in setting of PNA and ESRD on dialysis. Hx of chronically elevated troponins. Echo 10/2016 EF 60%. Limited echo EF 55%, normal wall motion. Stress test negative for ischemia or infarct as above. (4) Bilateral pleural effusion Current Visit: No Status: Acute Moderate-large right pleural effusion on CXR with stable small left pleural effusion. Diffuse vascular congestion. Pulmonary edema vs. infection--primary team treating for PNA. EF 60% on echo 10/2016. Rechecked limited to re-evaluate EF--still preserved 55% . Dialysis for volume status/fluid removal. Discussion w patient/family: The assessment and plan as outlined above was discussed with the patient and/or family members who expressed understanding and agreement. All questions were answered. Thank you for involving us in the care of your patient. Please call with any questions. I will discuss all the above with Dr. Gurrola and make changes as necessary. Subjective Principal diagnosis: right hip fracture, ESRD on dialysis Interval history: Pt denies chest pain or worsening dyspnea. Limited echo shows EF preserved 55%, mild concentric LVH, normal wall motion. Stress test gated EF 70%, perfusion imaging negative for ischemia or infarct. Objective Vital Signs, Last 4 Hours Temp Pulse Resp BP Pulse Ox 10/31/17 14:05 100 10/31/17 13:50 98.0 F 84 19 122/66 100 Vital Signs Temp Pulse Resp BP Pulse Ox 10/31/17 14:05 100 10/31/17 13:50 98.0 F 84 19 122/66 100 10/31/17 05:29 97.6 F 87 15 100/60 97 10/31/17 03:50 98.4 F 74 14 99/59 97 10/31/17 01:16 99.4 F 118 16 96/57 95 10/30/17 20:02 97.8 F 101 15 101/59 94 10/30/17 15:40 97.1 F L 99 15 90/57 98 Intake and Output 10/30/17 10/31/17 10/31/17 23:59 07:59 15:59 Intake Total 120 / 120 750 / 750 Output Total 0 / 0 0 / 0 Balance 120 / 120 750 / 750 Intake: Oral 120 / 120 750 / 750 Output: Urine 0 / 0 0 / 0 Other: Meal Dinner NPO Percent of Meal Consumed 40% Blood Glucose* 107 General: Conversant, No Apparent Distress HEENT: Atraumatic, Normocephaly, Mucus Membranes Moist Neck: No JVD, Normal carotid pulses Cardiac: Other (irregularly irregular) Lungs: Other (diminished) Neuro: Alert and responsive, No focal deficits noted Abdomen: Soft, Non-Tender Skin: No rashes noted on visualized skin Musculoskeletal: No Chest Wall Tenderness Extremities: No Clubbing, No Cyanosis, No Edema, Normal Pulses Results 10/31/17 03:26 10/31/17 03:26 Lab Results 10/31/17 10/31/17 10/31/17 03:26 03:26 13:08 WBC 7.1 Hgb 9.1 L Hct 27.0 L Plt Count 248 INR 2.7 Sodium 133 L Potassium 4.9 H Chloride 92 L Carbon Dioxide 26 BUN 61 H D Creatinine 5.73 H Glucose 79 Calcium 8.7 Short CBC 10/31/17 Range/Units 03:26 WBC 7.1 (4.3-11.1) K/mcL Hgb 9.1 L (12.9-16.9) g/dL Hct 27.0 L (37.5-50.1) % Plt Count 248 (140-400) K/mcL Neutrophils # 5.3 (1.6-8.9) K/mcL BMP 10/31/17 Range/Units 03:26 Sodium 133 L (136-145) mEq/L Potassium 4.9 H (3.5-4.5) mEq/L Chloride 92 L (98-109) mEq/L Carbon Dioxide 26 (19-29) mEq/L BUN 61 H D (8-26) mg/dL Creatinine 5.73 H (0.72-1.25) mg/dL Glucose 79 (70-99) mg/dL Calcium 8.7 (8.6-10.8) mg/dL Impressions Hip CT 10/29/17 14:07 IMPRESSION: 1. Mildly impacted right femoral neck fracture. 2. Small amount of pelvic ascites. There is ascites within a right inguinal hernia. D/ / 10/29/2017 14:56:42 Chai Espinal MD / [facility] Interpreting Provider: Chai Espinal MD Chest X-Ray 10/29/17 19:49 IMPRESSION: No significant change compared to prior study. Redemonstration of moderate/large right pleural effusion with associated atelectasis/consolidation as well as a stable small left pleural effusion and diffuse vascular congestion. Overall findings are suspicious for pulmonary edema. Atypical infection is also in the differential. D/ / 10/29/2017 20:27:24 Miguel Angel Waldrop MD / [facility] Interpreting Provider: Miguel Angel Waldrop MD Echocardiogram Limited Views 10/30/17 11:54 Impressions: LVEF 55%. Mild concentric left ventricular hypertrophy. No change in LV function compared to prior report. Left Ventricular Wall Motion: Rest Echo Findings All wall segments showed normal motion. Findings: Study Quality * Technically adequate exam. ECG Findings * Normal sinus rhythm. Left Ventricle * LVEF 55%. * Normal LV chamber size. * Mild concentric left ventricular hypertrophy. Aorta * Normally sized aortic root. Pericardium * The pericardium appears normal. IVC * Normal IVC dimensions and inspiratory collapse. Active Medications Ascorbic Acid (Vitamin C) 500 mg PO DAILY [facility] Stop: 05/01/18 09:01 Last Admin: 10/31/17 11:37 Dose: Not Given Aspirin (Aspirin Ec) 81 mg PO DAILY [facility] Stop: 05/01/18 09:01 Last Admin: 10/31/17 11:36 Dose: Not Given Atorvastatin Calcium (Lipitor) 20 mg PO DAILY [facility] Stop: 05/01/18 09:01 Last Admin: 10/31/17 11:36 Dose: Not Given Dronabinol (Marinol) 2.5 mg PO DAILY [facility] Stop: 05/01/18 09:01 Last Admin: 10/31/17 11:36 Dose: Not Given Finasteride (Proscar) 5 mg PO DAILY [facility] PRN Reason: Protocol Stop: 05/01/18 09:01 Last Admin: 10/31/17 11:37 Dose: Not Given Sodium Chloride (0.9 % Sodium Chloride) 250 mls @ 937.5 mls/hr IVC .Q16M PRN PRN Reason: Hypotension Stop: 05/02/18 04:22 Levofloxacin/Dextrose (Levaquin Premix 500mg/100ml) 500 mg in 100 mls @ 100 mls /hr IVPB Q48H [facility] PRN Reason: Protocol Stop: 05/03/18 17:01 Loratadine (Claritin) 10 mg PO DAILY [facility] Stop: 05/01/18 09:01 Last Admin: 10/31/17 11:36 Dose: Not Given Metoprolol Tartrate (Lopressor) 25 mg PO BID [facility] Stop: 05/01/18 09:01 Last Admin: 10/31/17 11:36 Dose: Not Given Mirtazapine (Remeron) 15 mg PO HS [facility] Stop: 05/01/18 21:01 Last Admin: 10/30/17 20:24 Dose: 15 mg Montelukast Sodium (Singulair) 10 mg PO DAILY [facility] Stop: 05/01/18 09:01 Last Admin: 10/31/17 11:37 Dose: Not Given Morphine Sulfate (Morphine Sulfate) 2 mg IVP Q4HR PRN PRN Reason: Severe Pain Stop: 04/30/18 16:42 Last Admin: 10/31/17 00:32 Dose: 2 mg Multivitamins/Calcium (Thera M Plus) 1 tab PO DAILY [facility] Stop: 05/01/18 09:01 Last Admin: 10/31/17 11:37 Dose: Not Given Naloxone HCl (Narcan) 0.4 mg IVP Q2MIN PRN PRN Reason: Opioid Reversal Stop: 04/30/18 16:42 Omeprazole (Prilosec) 40 mg PO BID [facility] Stop: 04/30/18 21:01 Last Admin: 10/31/17 11:37 Dose: Not Given Ondansetron HCl (Zofran) 4 mg IVP Q8HR PRN PRN Reason: Nausea And Vomiting Stop: 04/30/18 16:42 Oxycodone/Acetaminophen (Percocet 5/325) 1 each PO QID PRN PRN Reason: Moderate Pain Stop: 04/30/18 17:01 Last Admin: 10/30/17 09:17 Dose: 1 each Polyethylene Glycol (Miralax) 17 gm PO DAILY [facility] Stop: 05/02/18 09:01 Last Admin: 10/31/17 11:37 Dose: Not Given Sevelamer HCl (Renvela) 1,600 mg PO TIDWM [facility] Stop: 05/01/18 17:01 Last Admin: 10/31/17 13:49 Dose: Not Given Sodium Bicarbonate (Sodium Bicarbonate) 650 mg PO BID [facility] Stop: 05/01/18 09:01 Last Admin: 10/31/17 11:37 Dose: Not Given Vancomycin HCl (Vancocin) 0 each IVPB RPHPROT PRN PRN Reason: PULSE DOSE Stop: 04/30/18 22:02 - Imaging and Cardiology Stress Test: report reviewed Echo: report reviewed - EKG Interpretation EKG results cardiology: other (12 hr tele avg hr 105, a-fib) - VTE Reasons for not Prescribing Prophylaxis: Not indicated-Anticoagulated or INR therapeutic Consult Discharge Plan - Plan Referrals: Adolfo Tobias DO [Primary Care Provider] -
--- NOTE | 2017-10-31 14:51 | Internal Med Progress Note ---
Date of Encounter: 10/31/17 Time of Encounter: 13:00 - Assessment and plan (1) Hip fracture, right Current Visit: Yes Status: Acute Assessment and plan: Orthopedic consult on case. Plan for surgery. Continue pain management Qualifiers: Encounter type: subsequent encounter Fracture type: closed Fracture healing: with delayed healing Qualified Code(s): S72.001G - Fracture of unspecified part of neck of right femur, subsequent encounter for closed fracture with delayed healing (2) PNA (pneumonia) Current Visit: Yes Status: Acute Assessment and plan: Patient is on Vanco and Levaquin. WBC is trending down. Patient denies shortness of breath. Pneumonia has improved. Will continue antibiotics. Patient is at high risk because he is on vancomycin need close monitoring. He also need surgical intervention. Qualifiers: Pneumonia type: due to Pneumococcus Laterality: right Lung location: unspecified part of lung Qualified Code(s): J13 - Pneumonia due to Streptococcus pneumoniae (3) ESRD (end stage renal disease) on dialysis Current Visit: Yes Status: Chronic Assessment and plan: On hemodialysis (4) Atrial fibrillation Current Visit: Yes Status: Chronic Assessment and plan: Heart rate is well controlled. On Coumadin but on hold now for surgery. Qualifiers: Atrial fibrillation type: chronic Qualified Code(s): I48.2 - Chronic atrial fibrillation (5) CHF (congestive heart failure) Current Visit: Yes Status: Acute Assessment and plan: Patient appears euvolemic at this point Qualifiers: Congestive heart failure type: diastolic Congestive heart failure chronicity: chronic Qualified Code(s): I50.32 - Chronic diastolic (congestive ) heart failure (6) DVT prophylaxis Current Visit: Yes Status: Acute Assessment and plan: Patient is on Coumadin and INR is therapeutic. Now hold Coumadin for surgery. - Time Spent With Patient Greater than 35 minutes - Subjective Interval history: I saw and examined the patient today. Still complaining of hip pain. Denies chest pain or shortness of breath. Mild chronic cough. Vital signs stable no fever. Stress test negative, cardiology consult consider acceptable risk for surgery. INR still high, will give 2 units of FFP. - Constitutional Vitals: Temp Pulse Resp BP Pulse Ox 98.0 F 84 19 122/66 100 10/31/17 13:50 10/31/17 13:50 10/31/17 13:50 10/31/17 13:50 10/31/17 14:05 General appearance: Present: cooperative, A&O X 3, pleasant, no acute distress, answers questions appropriately - Head Head exam: Present: atraumatic, normocephalic - Eye Eye exam: Present: PERRL, conjuntiva pink, sclera anicteric Pupils: Present: PERRL - Neck Neck exam general surgery: Present: supple, trachea midline. Absent: lymphadenopathy - Respiratory Respiratory exam: Present: CTAB. Absent: accessory muscle use, rales, rhonchi, wheezes - Cardiovascular Cardiovascular exam: Present: RRR, +S1, +S2. Absent: diastolic murmur, gallop, rubs, systolic murmur - GI/Abdominal GI/Abdominal exam: Present: normal bowel sounds, soft, no peritoneal signs. Absent: distended, tenderness - Extremities Exam Extremities exam: Present: warm, radial pulses palpable and symmetrical. Absent : calf tenderness, cyanotic, pedal edema Additional comments: Right hip ROM limited due to pain. - Neurological Exam Neurological exam: Present: CN II-XII intact, oriented X3, no focal deficits. Absent: pronater drift, facial droop, speech deficit - Skin Skin exam: Present: dry, intact Internal Medicine: Result - Labs CBC & Chem 7: 10/31/17 03:26 10/31/17 03:26 Labs: Short CBC 10/31/17 Range/Units 03:26 WBC 7.1 (4.3-11.1) K/mcL Hgb 9.1 L (12.9-16.9) g/dL Hct 27.0 L (37.5-50.1) % Plt Count 248 (140-400) K/mcL Neutrophils # 5.3 (1.6-8.9) K/mcL BMP 10/31/17 03:26 Sodium 133 L Potassium 4.9 H Chloride 92 L Carbon Dioxide 26 BUN 61 H D Creatinine 5.73 H Glucose 79 Calcium 8.7 - ABG Interpretation ABG results: PT/INR, D-dimer PT 29.4 Seconds (9.4-12.1) H 10/31/17 13:08 - Impressions Impressions Chest X-Ray 10/29/17 19:49 IMPRESSION: No significant change compared to prior study. Redemonstration of moderate/large right pleural effusion with associated atelectasis/consolidation as well as a stable small left pleural effusion and diffuse vascular congestion. Overall findings are suspicious for pulmonary edema. Atypical infection is also in the differential. D/ / 10/29/2017 20:27:24 Miguel Angel Waldrop MD / [facility] Interpreting Provider: Miguel Angel Waldrop MD Echocardiogram Limited Views 10/30/17 11:54 Impressions: LVEF 55%. Mild concentric left ventricular hypertrophy. No change in LV function compared to prior report. Left Ventricular Wall Motion: Rest Echo Findings All wall segments showed normal motion. Findings: Study Quality * Technically adequate exam. ECG Findings * Normal sinus rhythm. Left Ventricle * LVEF 55%. * Normal LV chamber size. * Mild concentric left ventricular hypertrophy. Aorta * Normally sized aortic root. Pericardium * The pericardium appears normal. IVC * Normal IVC dimensions and inspiratory collapse. - VTE Reasons for not Prescribing Prophylaxis: Not indicated-Anticoagulated or INR therapeutic Consult Discharge Plan - Plan Referrals: Adolfo Tobias DO [Primary Care Provider] -
[2017-10-31] MEDS: *HR* OxyCODONE/APAP 5/325 TABLET PO PRN (15:40)
--- NOTE | 2017-10-31 18:32 | Electrocardiograph Report ---
[address] [place] [address] Test Date: 2017-10-29 Pat Name: Corey Yang Department: 103 Room: 3A22 Gender: M [employer]: : 1940 Requested By: Parag Wetzel Order Number: [id number] Reading MD: Sunil Goyal DO Measurements Intervals Seth Rate: 90 P: NC: 0 QRS: 115 QRSD: 92 T: 69 QT: 369 QTc: 417 Interpretive Statements Atrial fibrillation Nonspecific ST-T changes Electronically Signed On 10-31-2017 18:30:46 EST by Sunil Goyal DO
[2017-10-31] MEDS: Mirtazapine 15 MG TABLET PO SCH (22:32)
[2017-11-01] MEDS ORDERED: Levofloxacin 500 MG/100 ML 500 MG/100 ML BAG IVPB SCH (06:00)
[2017-11-01] MEDS ORDERED: Vancomycin 1,000 MG in D5% in Water 250 ML IVPB ONE (06:00)
[2017-11-01 06:31] LABS: Basophils # 0.1 K/mcL (0.0-0.2); Basophils % 0.8 %; Eosinophils # 0.1 K/mcL (0.0-0.6); Eosinophils % 1.7 %; Hematocrit 29.6 % (37.5-50.1); Hemoglobin 9.8 g/dL (12.9-16.9); Immature Granulocytes % 0.2 % (0-4); Lymphocytes # 0.3 K/mcL (0.6-4.6); Lymphocytes % 3.6 %; Mean Corpuscular HGB Conc 33.1 g/dL (31.6-35.5); Mean Corpuscular Hemoglobin 28.8 pg (28.0-33.3); Mean Corpuscular Volume 87.1 fL (83.0-100.0); Mean Platelet Volume 12.1 fL (9.4-12.4); Monocytes # 1.4 K/mcL (0.0-1.3); Monocytes % 17.1 %; Neutrophils # 6.3 K/mcL (1.6-8.9); Nucleated Red Blood Cells 0.2 /100 WBC (0); Platelet Count 259 K/mcL (140-400); Red Cell Distribution Width 17.6 % (11.5-14.5); Segmented Neutrophils % 76.6 %
[2017-11-01 06:34] LABS: Prothrombin Time 22.2 Seconds (9.4-12.1)
[2017-11-01 06:36] LABS: Calcium 9.1 mg/dL (8.6-10.8); Potassium 4.3 mEq/L (3.5-4.5)
--- NOTE | 2017-11-01 08:16 | Orthopedics Progress Note ---
Date of Encounter: 11/01/17 Time of Encounter: 08:15 - Assessment and Plan (1) Hip fracture, right Current Visit: Yes Status: Acute Qualifiers: Encounter type: subsequent encounter Fracture type: closed Fracture healing: with delayed healing Qualified Code(s): S72.001G - Fracture of unspecified part of neck of right femur, subsequent encounter for closed fracture with delayed healing Subjective Principal diagnosis: right hip fracture, ESRD on dialysis Interval history: S: Resting comfortably in bed, no new complaints. O: Afebrile and vital signs are stable Pain with movement of the left lower extremity in the groin Dorsiflex and plantarflex at the ankle and toes The foot is well perfused A: Left femoral neck fracture, subcapital and impacted P: At this point my recommendation is for percutaneous screw fixation, however his INR was 2.0. I did discuss with the hospitalist that I wish it to be 1.7 or lower. He will get FFP this morning in anticipation for surgery this afternoon. Objective Vital signs: Vital Signs Temp Pulse Resp BP Pulse Ox 11/01/17 07:21 98.2 F 104 16 110/60 98 11/01/17 03:40 98.2 F 111 18 109/69 11/01/17 03:22 99.6 F 100 17 103/55 98 11/01/17 03:12 98.2 F 107 18 112/63 98 11/01/17 02:57 98.3 F 102 17 95/49 11/01/17 00:11 98.0 F 104 17 103/55 93 10/31/17 19:26 98.6 F 107 16 122/61 96 10/31/17 14:05 100 10/31/17 13:50 98.0 F 84 19 122/66 100 10/31/17 13:10 97 F L 17 109/49 10/31/17 12:50 106/57 10/31/17 12:20 105/43 10/31/17 11:50 104/56 10/31/17 11:20 105/58 10/31/17 10:50 103/54 10/31/17 10:20 107/57 10/31/17 09:50 98.1 F 18 110/59 Intake and Output 10/31/17 11/01/17 11/01/17 23:59 07:59 15:59 Intake Total 656 / 656 Output Total 0 / 0 Balance / 656 Intake: Oral 0 / 0 Blood Product 65 / 656 Plasma Unit [id number] Output: Urine 0 / 0 Other: Meal NPO Stool Size Smear Small Stool Consistency soft Stool Color Brown Brown # Urine Diapers 1 # Bowel Movement Diapers 1 Weight 61.235 kg Blood Glucose* 71 77 Patient Weight 11/01/17 23:59 Weight 61.235 kg - Labs CBC & BMP: 11/01/17 05:45 11/01/17 05:45 Labs: Abnormal lab results RBC 3.40 M/mcL (4.19-5.50) L 11/01/17 05:45 Hgb 9.8 g/dL (12.9-16.9) L 11/01/17 05:45 Hct 29.6 % (37.5-50.1) L 11/01/17 05:45 RDW 17.6 % (11.5-14.5) H 11/01/17 05:45 Lymphocytes # 0.3 K/mcL (0.6-4.6) L 11/01/17 05:45 Monocytes # 1.4 K/mcL (0.0-1.3) H 11/01/17 05:45 Nucleated RBCs/100 WBC 0.2 /100 WBC (0) H 11/01/17 05:45 PT 22.2 Seconds (9.4-12.1) H 11/01/17 05:45 APTT 38.3 Seconds (26.0-36.0) H 10/30/17 03:17 Chloride 95 mEq/L (98-109) L 11/01/17 05:45 BUN 41 mg/dL (8-26) H D 11/01/17 05:45 Creatinine 4.40 mg/dL (0.72-1.25) H 11/01/17 05:45 Est GFR ( Amer) 16 (> 60) L 11/01/17 05:45 Est GFR (Non-Af Amer) 13 (> 60) L 11/01/17 05:45 Total Bilirubin 1.5 mg/dL (0.2-1.2) H 10/30/17 03:17 Alkaline Phosphatase 722 Units/L (38-126) H 10/30/17 03:17 Troponin I 0.12 ng/mL (0-0.03) H* 10/30/17 03:17 Serum Total Protein 5.6 g/dL (6.0-8.3) L 10/30/17 03:17 Albumin 2.1 g/dL (3.5-5.0) L 10/30/17 03:17 Albumin/Globulin Ratio 0.6 (1.1-2.2) L 10/30/17 03:17 - VTE Reasons for not Prescribing Prophylaxis: Not indicated-Anticoagulated or INR therapeutic Consult Discharge Plan - Plan Referrals: Adolfo Tobias DO [Primary Care Provider] -
[2017-11-01] MEDS: Loratadine 10 MG TABLET PO SCH (08:21)
[2017-11-01] MEDS: Aspirin Enteric Coated 81 MG Tablet PO SCH (08:21)
[2017-11-01] MEDS: Finasteride 5 MG TABLET PO SCH (08:22)
[2017-11-01] MEDS: Ascorbic Acid 500 MG TABLET PO SCH (08:22)
[2017-11-01] MEDS: Multivit/Ca/Min/Fe/FA 1 TAB TABLET PO SCH (08:22)
--- NOTE | 2017-11-01 09:11 | Nephrology Progress Note ---
Date of Encounter: 11/01/17 Time of Encounter: 09:10 - Assessment and Plan (1) ESRD (end stage renal disease) on dialysis Current Visit: Yes Status: Chronic Plan for HD tomorrow Continue renal diet Avoid nephrotoxins if possible (2) Hip fracture, right Current Visit: Yes Status: Acute per orthopedic team Qualifiers: Encounter type: subsequent encounter Fracture type: closed Fracture healing: with delayed healing Qualified Code(s): S72.001G - Fracture of unspecified part of neck of right femur, subsequent encounter for closed fracture with delayed healing Subjective Principal diagnosis: right hip fracture, ESRD on dialysis Interval history: Patient seen and examined. States he is doing well. Surgery planned for this afternoon after getting FFPs. Objective - Vital Signs Vital signs: Vital Signs Temp Pulse Resp BP Pulse Ox 11/01/17 07:21 98.2 F 104 16 110/60 98 11/01/17 03:40 98.2 F 111 18 109/69 11/01/17 03:22 99.6 F 100 17 103/55 98 11/01/17 03:12 98.2 F 107 18 112/63 98 11/01/17 02:57 98.3 F 102 17 95/49 11/01/17 00:11 98.0 F 104 17 103/55 93 10/31/17 19:26 98.6 F 107 16 122/61 96 10/31/17 14:05 100 10/31/17 13:50 98.0 F 84 19 122/66 100 10/31/17 13:10 97 F L 17 109/49 10/31/17 12:50 106/57 10/31/17 12:20 105/43 10/31/17 11:50 104/56 10/31/17 11:20 105/58 10/31/17 10:50 103/54 10/31/17 10:20 107/57 10/31/17 09:50 98.1 F 18 110/59 Intake and Output 10/31/17 11/01/17 11/01/17 23:59 07:59 15:59 Intake Total 656 / 656 Output Total 0 / 0 Balance 656 / 656 Intake: Oral 0 / 0 Blood Product 656 / 656 Plasma Unit [id number] 656 / 656 Output: Urine 0 / 0 Other: Meal NPO Stool Size Smear Small Stool Consistency soft Stool Color Brown Brown # Urine Diapers 1 # Bowel Movement Diapers 1 Weight 61.235 kg Blood Glucose* 71 77 Patient Weight 11/01/17 23:59 Weight 61.235 kg - General Appearance General appearance: Present: well-developed, well-nourished EENT: Present: ATNC, mucous membranes moist, hearing intact, vision intact Neck: Present: supple Respiratory: Present: clear Cardiology: Present: no edema, normal S1, normal S2 Dialysis Vascular Access: Arteriovenous Fistula Gastrointestinal: Present: no tenderness, no guarding Integumentary: Present: warm and dry Neurologic: Present: alert and oriented x3 Psychiatric: Present: mood/affect appropriate, cooperative - Lab 11/01/17 05:45 11/01/17 05:45 Most recent lab results Calcium 9.1 mg/dL (8.6-10.8) 11/01/17 05:45 - VTE Reasons for not Prescribing Prophylaxis: Not indicated-Anticoagulated or INR therapeutic Consult Discharge Plan - Plan Referrals: Adolfo Tobias DO [Primary Care Provider] -
[2017-11-01] MEDS ORDERED: 0.9 % Sodium Chloride 250 ML ONE (09:33)
[2017-11-01] MEDS ORDERED: Levofloxacin 250 MG/50 ML 250 MG/50 ML BAG IVPB SCH (10:00)
[2017-11-01] MEDS: *HR* Morphine 2 MG/ML SYRINGE IVP PRN (11:47)
[2017-11-01 14:26] LABS: INR 1.9; Prothrombin Time 20.8 Seconds (9.4-12.1)
--- NOTE | 2017-11-01 15:11 | Internal Med Progress Note ---
Date of Encounter: 11/01/17 Time of Encounter: 10:00 - Assessment and plan (1) Hip fracture, right Current Visit: Yes Status: Acute Assessment and plan: Orthopedic consult on case. Plan for surgery. Continue pain management Qualifiers: Encounter type: subsequent encounter Fracture type: closed Fracture healing: with delayed healing Qualified Code(s): S72.001G - Fracture of unspecified part of neck of right femur, subsequent encounter for closed fracture with delayed healing (2) PNA (pneumonia) Current Visit: Yes Status: Acute Assessment and plan: Patient is on Vanco and Levaquin. WBC is trending down. Patient denies shortness of breath. Pneumonia has improved. Will continue antibiotics. Patient is at high risk because he is on vancomycin need close monitoring. He also need surgical intervention. Qualifiers: Pneumonia type: due to Pneumococcus Laterality: right Lung location: unspecified part of lung Qualified Code(s): J13 - Pneumonia due to Streptococcus pneumoniae (3) ESRD (end stage renal disease) on dialysis Current Visit: Yes Status: Chronic Assessment and plan: On hemodialysis (4) Atrial fibrillation Current Visit: Yes Status: Chronic Assessment and plan: Heart rate is well controlled. On Coumadin but on hold now for surgery. Qualifiers: Atrial fibrillation type: chronic Qualified Code(s): I48.2 - Chronic atrial fibrillation (5) CHF (congestive heart failure) Current Visit: Yes Status: Acute Assessment and plan: Patient appears euvolemic at this point Qualifiers: Congestive heart failure type: diastolic Congestive heart failure chronicity: chronic Qualified Code(s): I50.32 - Chronic diastolic (congestive ) heart failure (6) DVT prophylaxis Current Visit: Yes Status: Acute Assessment and plan: Patient is on Coumadin. Now hold Coumadin for surgery. - Time Spent With Patient Greater than 35 minutes - Subjective Interval history: I saw and examined the patient today. Still complaining of hip pain. Denies chest pain or shortness of breath. No cough. Vital signs stable no fever. Plan for surgery by orthopedics. - Constitutional Vitals: Temp Pulse Resp BP Pulse Ox 98.0 F 118 18 112/69 95 11/01/17 12:37 11/01/17 12:37 11/01/17 12:37 11/01/17 12:37 11/01/17 12:37 General appearance: Present: cooperative, A&O X 3, pleasant, no acute distress, answers questions appropriately - Head Head exam: Present: atraumatic, normocephalic - Eye Eye exam: Present: PERRL, conjuntiva pink, sclera anicteric Pupils: Present: PERRL - Neck Neck exam general surgery: Present: supple, trachea midline. Absent: lymphadenopathy - Respiratory Respiratory exam: Present: CTAB. Absent: accessory muscle use, rales, rhonchi, wheezes - Cardiovascular Cardiovascular exam: Present: RRR, +S1, +S2. Absent: diastolic murmur, gallop, rubs, systolic murmur - GI/Abdominal GI/Abdominal exam: Present: normal bowel sounds, soft, no peritoneal signs. Absent: distended, tenderness - Extremities Exam Extremities exam: Present: warm, radial pulses palpable and symmetrical. Absent : calf tenderness, cyanotic, pedal edema Additional comments: Rt leg pain on movement. - Neurological Exam Neurological exam: Present: CN II-XII intact, oriented X3, no focal deficits. Absent: pronater drift, facial droop, speech deficit - Skin Skin exam: Present: dry, intact Internal Medicine: Result - Labs CBC & Chem 7: 11/01/17 05:45 11/01/17 05:45 Labs: Short CBC 11/01/17 Range/Units 05:45 WBC 8.3 (4.3-11.1) K/mcL Hgb 9.8 L (12.9-16.9) g/dL Hct 29.6 L (37.5-50.1) % Plt Count 259 (140-400) K/mcL Neutrophils # 6.3 (1.6-8.9) K/mcL BMP 11/01/17 05:45 Sodium 138 Potassium 4.3 Chloride 95 L Carbon Dioxide 27 BUN 41 H D Creatinine 4.40 H Glucose 82 Calcium 9.1 - ABG Interpretation ABG results: PT/INR, D-dimer PT 20.8 Seconds (9.4-12.1) H 11/01/17 14:04 - VTE Reasons for not Prescribing Prophylaxis: Not indicated-Anticoagulated or INR therapeutic Consult Discharge Plan - Plan Referrals: Adolfo Tobias DO [Primary Care Provider] -
--- NOTE | 2017-11-01 16:48 | Anesthesia Evaluation PreOp ---
Date of Encounter: 11/01/17 Time of Encounter: 16:45 - Past History Planned Operation: Rt Perc Hip Pinning Cardiac History: CHF (2014), HTN, Arrhythmia (AFib) Pulmonary History: Former smoker (quit 1989) FAMILY PRESERVATION WORKER History: Denies Any Significant HX Other Medical History: Renal (ESRD dialyzed yesterday), GERD, Other (Amyloidosis ) Anesthesia History: No Prior Anesthetic Complications Alcohol Use: none Drug use: none Medications and Allergies Aspirin [Lo-Dose Aspirin EC] 81 mg PO DAILY 07/26/16 [History] Finasteride [Proscar] 5 mg PO DAILY 07/26/16 [History] Metoprolol [Lopressor] 25 mg PO BID 07/26/16 [History] Sodium Bicarbonate 650 mg PO BID 07/26/16 [History] Vit A/C/E AC/Znox/Cupric Oxide [Eye Vitamin-Minerals Tablet] 1 tab PO BID [History] Polyvinyl Alcohol/Povidone/Pf [Refresh Classic Eye Drops] 1 drop OP BID [History] Polyethylene Glycol 3350 [MiraLAX] 17 gm PO Q48H 11/20/16 [History] Atorvastatin Calcium [Lipitor] 20 mg PO HS 12/22/16 [History] Fluticasone Propionate Nasal [Flonase] 1 spr NS DAILY PRN 05/03/17 [History] Mirtazapine [Remeron] 15 mg PO HS 05/03/17 [History] Pantoprazole Sodium [Protonix] 40 mg PO BID 05/03/17 [History] Sevelamer [Renvela] 1,600 mg PO TIDWM 05/03/17 [History] Ascorbic Acid [Vitamin C] 500 mg PO DAILY 06/29/17 [History] EPINEPHrine [Epipen] 0.3 mg IM ONCE PRN 06/29/17 [History] Cetirizine HCl [Zyrtec] 10 mg PO DAILY 10/29/17 [History] Dronabinol [Marinol] 2.5 mg PO DAILY 10/29/17 [History] Montelukast [Singulair] 10 mg PO DAILY 10/29/17 [History] Multivitamin [One Daily Essential] 1 each PO DAILY 10/29/17 [History] Ofloxacin OPTH Drops [Ocuflox] 1 drop OP QID 10/29/17 [History] Oxygen 3 l NS AD 10/29/17 [History] PrednisoLONE Acetate 1% Opth [PredFORTE 1%] 1 drop OP QID 10/29/17 [History] Warfarin [Coumadin] 2.5 mg PO SUMOTUWETHSA 10/29/17 [History] 3 Allergy/AdvReac Type Severity Reaction Status Date / Time Amoxicillin Allergy Swelling Verified 08/09/17 08:53 of Lip/Tongue/Throat Penicillins [PCN] Allergy Anaphylaxis Verified 08/09/17 08:53 venom-honey bee Allergy Anaphylaxis Verified 08/09/17 08:53 [bee venom (honey bee)] - Meds/Allergy Pre-op Review Medications Reviewed: Yes Allergies Reviewed: Yes Beta Blockers on Current Med List: Yes Anesthesia Results - Labs 11/01/17 05:45 11/01/17 05:45 Laboratory Tests 10/30/17 11/01/17 11/01/17 03:17 05:45 05:45 Hgb 9.8 L Hct 29.6 L Plt Count 259 PT INR APTT 38.3 H Sodium 138 Potassium 4.3 BUN 41 H D Creatinine 4.40 H 11/01/17 14:04 Hgb Hct Plt Count PT 20.8 H INR 1.9 APTT Sodium Potassium BUN Creatinine - Imaging EKG: report reviewed (SR Rt [place] Deviation) Additional studies: ECHO EF 60% Anesthesia Exam O2 Sat Weight 61.235 kg O2 Sat by Pulse Oximetry 95 O2 Sat by Pulse Oximetry 98 O2 Sat by Pulse Oximetry 92 O2 Sat by Pulse Oximetry 98 O2 Sat by Pulse Oximetry 97 O2 Sat by Pulse Oximetry 98 O2 Sat by Pulse Oximetry 98 O2 Sat by Pulse Oximetry 98 O2 Sat by Pulse Oximetry 98 O2 Sat by Pulse Oximetry 93 O2 Sat by Pulse Oximetry 96 Vital Signs Temp Pulse Resp BP Pulse Ox 97.9 F 101 18 111/74 99 10/29/17 13:44 10/29/17 13:44 10/29/17 13:44 10/29/17 13:44 10/29/17 13:44 Height: 5'10 Weight: 135 lbs NPO (# of Hours): MN Pain Scale: 0 - HEENT Pupil (Motor): Pupils equal, EOMI Teeth: Edentulous Oral Opening: Less than or equal to 3 - FAMILY [employer]ATION WORKER LOC: Oriented FAMILY PRESERVATION WORKER Motor: Normal RUE, Normal LUE, Normal RLE, Normal LLE, Normal Face FAMILY [employer]ATION WORKER Sensory: Normal: RUE, LUE, RLE, LLE, Face - Cardiac Rhythm: Regular Murmur: None JVD: No Carotid Bruit: No - Pulmonary Breath Sounds: bilateral Clear Respiratory Effort: Symmetrical Anesthesia Assess/Plan ASA Score: 4 (AFib HTN ESRD) Modified Chuckie Scale for Level of Consciousness: Cooperative, oriented, and tranquil Anesthetic Plan: General Monitoring Plan: Standard Monitors Recovery Plan: PACU (Discussed GA, agrees to proceed)
[2017-11-01] MEDS ORDERED: Lidocaine -MPF 2% 2 ML VIAL ONE (16:59)
[2017-11-01] MEDS ORDERED: *HR* Propofol 200 MG/20 ML VIAL IVP ONE (16:59)
[2017-11-01] MEDS ORDERED: *HR* Succinylcholine 200 MG/10 ML VIAL IVP ONE (16:59)
[2017-11-01] MEDS ORDERED: *HR* FentaNYL (PF) 100 MCG/2 ML VIAL ONE (16:59)
[2017-11-01] MEDS ORDERED: *HR* Rocuronium Bromide 50 MG/5 ML VIAL ONE (17:01)
[2017-11-01] MEDS ORDERED: Clindamycin 900 MG/50 ML 900 MG/50 ML IV.SOLN IVPB ONE ×2 (17:10→17:57)
[2017-11-01] MEDS ORDERED: Dexamethasone 4 MG/ML VIAL ONE (17:46)
[2017-11-01] MEDS ORDERED: Ondansetron 4 MG/2 ML VIAL ONE (17:46)
[2017-11-01] MEDS ORDERED: Acetaminophen IV 1,000 MG/100 ML INFUS..BTL ONE (17:57)
[2017-11-01] MEDS ORDERED: *HR* Morphine 2 MG/ML SYRINGE IVP PRN (18:08)
[2017-11-01] MEDS ORDERED: Naloxone 0.4 MG/ML INJ IVP PRN (18:37)
--- NOTE | 2017-11-01 18:51 | Orthopedic Operative Note ---
Date of procedure: 11/01/17 Procedure: OPERATIVE REPORT DATE OF PROCEDURE: 11/01/2017 SURGEON: Boris Gonzalez MD MARGIN ANALYST(S): There were no assistants PREOPERATIVE DIAGNOSIS: Right subcapital femoral neck fracture POSTOPERATIVE DIAGNOSIS: Same PROCEDURE: Percutaneous screw fixation of right hip ANESTHESIA: General PREOPERATIVE ANTIBIOTICS: 900 mg of clindamycin ESTIMATED BLOOD LOSS: 10 milliliters IMPLANTS: Striker partially threaded cannulated screws 3, 6.5 mm in diameter PREOPERATIVE NOTE AND INDICATIONS: This patient is a 77-year-old male with a subcapital impacted right femoral neck fracture. Treatment options were discussed and the recommendation was for percutaneous screw fixation. The goal is to stabilize the hip to reduce the risk of displacement and provide pain control to help facilitate nursing care. The surgical plan was discussed with the patient. The risks, benefits, alternatives, and potential complications of this procedure were discussed with the patient including injury to veins, arteries, nerves, tendons, ligaments, and bone. Also discussed were the risks of infection, bleeding, pain, blood clots, the possible need for a blood transfusion, the possible need for further procedures, heart attack, stroke, and . Additional risks include malunion , nonunion, avascular necrosis, and the need for prosthetic replacement. All of this was explained in simple terms, and the patient verbalized understanding and wished to proceed. Consent was given to proceed with surgery. PROCEDURE: The patient was seen in the preoperative holding area where the identify and the consent were confirmed. The right thigh was marked. Final questions were answered. The patient was brought back to the operating room. A huddle was performed with the patient and all vital surgical team members confirming patient identity, the correct procedure, and the correct operative site. General anesthesia was administered. The patient's postoperative traction table and the right lower extremity in the traction boot. The left lower joint is flexed and abducted out of the way. X-rays confirmed good position of the fracture. The right thigh was prepped and draped in the usual sterile fashion. A surgical time out was performed immediately preceding the incision with all personnel in the operating room to confirm patient identity, the correct operative site and extremity, correct radiographic studies, availability of appropriate surgical equipment, and agreement on the planned procedure. A small incision was made through the skin, subcutaneous tissue, and the fascia. 3 percutaneous pins were placed. X-rays confirmed good position. There are measured, drilled, and inserted with excellent purchase. X-rays confirmed final good position. The wound is copiously irrigated and the fascia closed with interrupted 0 Vicryl stitches. The wound was irrigated and incision closed with 3-0 Vicryl followed by a zip tie closure and dressing. The instrument, sponge, and needle counts were correct after wound closure. POST OPERATIVE PLAN: Weight Bearing: Weightbearing as tolerated on the bilateral lower extremity. DVT Prophylaxis: Aspirin Activity: Activities as tolerated with assistance Wound Care: Keep the dressing clean, dry, and intact. Pain Control: Per the hospitalist Perioperative antibiotic prophylaxis: 2 doses of clindamycin Social work for discharge planning Follow Up: 2 weeks
--- NOTE | 2017-11-01 18:58 | Anesthesia Evaluation Post Op ---
Date of Encounter: 11/01/17 Time of Encounter: 18:55 - Vital Signs Vital Signs: Vital Signs/O2 Sat/Glucose, Most Current Temp Pulse Resp BP Pulse Ox 11/01/17 18:51 86 12 106/63 93 11/01/17 18:41 86 16 103/59 99 11/01/17 18:31 99.4 F 85 20 102/63 97 - Lungs Lungs: Clear Ascult./Percussion - Airway Airway: Non-obstructed - Cardiovascular Regular Rate - Mental Status Mental Status: Alert & Oriented, Answers Appropriately - Pain Pain Scale: 1 - Nausea Vomiting Nausea Vomiting: Not Present - Hydration Hydration: Ice chips - Discharge PostOp Status: Transfer Patient to floor
[2017-11-01] MEDS: Levofloxacin 500 MG/100 ML 500 MG/100 ML BAG IVPB SCH (20:58)
[2017-11-01] MEDS: Mirtazapine 15 MG TABLET PO SCH (21:08)
[2017-11-02] MEDS: Clindamycin 900 MG/50 ML 900 MG/50 ML IV.SOLN IVPB SCH ×2 (02:10→13:32)
[2017-11-02] MEDS ORDERED: 0.9 % Sodium Chloride 250 ML IVC PRN (05:17)
[2017-11-02 06:43] LABS: INR 2.4; Prothrombin Time 26.1 Seconds (9.4-12.1)
[2017-11-02 06:49] LABS: Hematocrit 30.8 % (37.5-50.1); Hemoglobin 10.1 g/dL (12.9-16.9); Mean Corpuscular HGB Conc 32.8 g/dL (31.6-35.5); Mean Corpuscular Hemoglobin 28.9 pg (28.0-33.3); Mean Platelet Volume 12.2 fL (9.4-12.4); Platelet Count 262 K/mcL (140-400); Red Cell Distribution Width 17.6 % (11.5-14.5)
[2017-11-02 06:50] LABS: Calcium 9.2 mg/dL (8.6-10.8)
[2017-11-02 06:51] LABS: Potassium 5.6 mEq/L (3.5-4.5)
[2017-11-02 07:35] LABS: Lymphocytes # 0.4 K/mcL (0.6-4.6); Platelet Estimate Normal (Normal)
--- NOTE | 2017-11-02 08:05 | Orthopedics Progress Note ---
Date of Encounter: 11/02/17 Time of Encounter: 08:03 - Assessment and Plan (1) Hip fracture, right Current Visit: Yes Status: Acute Qualifiers: Encounter type: subsequent encounter Fracture type: closed Fracture healing: with delayed healing Qualified Code(s): S72.001G - Fracture of unspecified part of neck of right femur, subsequent encounter for closed fracture with delayed healing Subjective Principal diagnosis: right hip fracture, ESRD on dialysis Interval history: S: Pain is well-controlled of the right hip O: Afebrile and vital signs are stable Dressing is clean, dry, and intact. I can gently passively range the hip with moderate pain He conversed flex and plantar flex ankle and toes The foot is sensate and well-perfused A: Post internal fixation of the right hip, doing well P: At this point my recommendation is therapy Weightbearing as tolerated on the bilateral lower extremities Gutierres out today Aspirin for DVT prophylaxis Objective Vital signs: Vital Signs Temp Pulse Resp BP Pulse Ox 11/02/17 07:07 98.1 F 80 17 93/42 93 11/02/17 03:44 97.4 F L 73 17 101/65 97 11/02/17 01:03 97.8 F 83 17 96/54 94 11/01/17 22:30 97.4 F L 93 16 114/66 98 11/01/17 21:30 97.4 F L 92 18 105/61 97 11/01/17 20:30 97.7 F 94 18 105/63 94 11/01/17 19:30 97.9 F 90 18 105/60 97 11/01/17 18:51 86 12 106/63 93 11/01/17 18:41 86 16 103/59 99 11/01/17 18:31 99.4 F 85 20 102/63 97 11/01/17 12:37 98.0 F 118 18 112/69 95 11/01/17 12:18 97.9 F 107 16 118/70 98 11/01/17 11:38 98.3 F 105 16 116/74 92 11/01/17 11:32 98.3 F 112 16 116/74 98 11/01/17 09:51 98.0 F 126 16 116/67 97 Intake and Output 11/01/17 11/02/17 11/02/17 23:59 07:59 15:59 Intake Total 200 / 200 Output Total 410 / 410 200 / 200 Balance -410 / -410 0 / 0 Intake: Oral 200 / 200 Output: Estimated Blood Loss 10 / 10 Urine Amount (Catheter) 400 / 400 Catheter 200 / 200 - Labs CBC & BMP: 11/02/17 06:21 12 06:21 Labs: Abnormal lab results RBC 3.50 M/mcL (4.19-5.50) L 11/02/17 06:21 Hgb 10.1 g/dL (12.9-16.9) L 11/02/17 06:21 Hct 30.8 % (37.5-50.1) L 11/02/17 06:21 RDW 17.6 % (11.5-14.5) H 11/02/17 06:21 Neutrophils # 9.0 K/mcL (1.6-8.9) H 11/02/17 06:21 Lymphocytes # 0.4 K/mcL (0.6-4.6) L 11/02/17 06:21 Monocytes # 1.4 K/mcL (0.0-1.3) H 11/01/17 05:45 Nucleated RBCs/100 WBC 0.2 /100 WBC (0) H 11/01/17 05:45 PT 26.1 Seconds (9.4-12.1) H 11/02/17 06:21 APTT 38.3 Seconds (26.0-36.0) H 10/30/17 03:17 Potassium 5.6 mEq/L (3.5-4.5) H D 11/02/17 06:21 Chloride 95 mEq/L (98-109) L 11/02/17 06:21 BUN 57 mg/dL (8-26) H D 11/02/17 06:21 Creatinine 5.53 mg/dL (0.72-1.25) H 11/02/17 06:21 Est GFR ( Amer) 12 (> 60) L 11/02/17 06:21 Est GFR (Non-Af Amer) 10 (> 60) L 11/02/17 06:21 Glucose 152 mg/dL (70-99) H 11/02/17 06:21 Calculated Osmolality 305 (280-300) H 11/02/17 06:21 Total Bilirubin 1.5 mg/dL (0.2-1.2) H 10/30/17 03:17 Alkaline Phosphatase 722 Units/L (38-126) H 10/30/17 03:17 Troponin I 0.12 ng/mL (0-0.03) H* 10/30/17 03:17 Serum Total Protein 5.6 g/dL (6.0-8.3) L 10/30/17 03:17 Albumin 2.1 g/dL (3.5-5.0) L 10/30/17 03:17 Albumin/Globulin Ratio 0.6 (1.1-2.2) L 10/30/17 03:17 - VTE Reasons for not Prescribing Prophylaxis: Not indicated-Anticoagulated or INR therapeutic Documentation of Mechanical Device: Venous foot pump, device Consult Discharge Plan - Plan Referrals: Adolfo Tobias DO [Primary Care Provider] -
[2017-11-02] MEDS ORDERED: Albumin 25% 12.5gm/50mL 12.5 GM/50 ML IV.SOLN IVPB PRN (08:56)
[2017-11-02] MEDS ORDERED: Mannitol 25% vial 12.5 GM/50 ML VIAL IVP PRN (08:56)
[2017-11-02] MEDS ORDERED: Albumin 25% 12.5gm/50mL 25.0 GM/100 ML IV.SOLN ONE (09:05)
[2017-11-02] MEDS ORDERED: 0.9 % Sodium Chloride 1,000 ML ONE (09:05)
[2017-11-02] MEDS ORDERED: Albumin 25% 12.5gm/50mL 12.5 GM/50 ML IV.SOLN ONE (10:18)
[2017-11-02] MEDS: Loratadine 10 MG TABLET PO SCH (13:31)
[2017-11-02] MEDS: Finasteride 5 MG TABLET PO SCH (13:31)
[2017-11-02] MEDS: Multivit/Ca/Min/Fe/FA 1 TAB TABLET PO SCH (13:31)
[2017-11-02] MEDS: Ascorbic Acid 500 MG TABLET PO SCH (13:31)
[2017-11-02] MEDS ORDERED: Ipratropium/Albuterol Neb 3 ML IH PRN (14:21)
--- NOTE | 2017-11-02 15:39 | Nephrology Progress Note ---
Date of Encounter: 11/02/17 Time of Encounter: 11:15 - Assessment and Plan (1) ESRD (end stage renal disease) on dialysis Current Visit: Yes Status: Chronic Continue HD but will reduce UF given hypotension Will use albumin boluses to help Will consider UF session tomorrow for 2 hrs with goal of 3kf if needed (2) Hip fracture, right Current Visit: Yes Status: Acute Management per ortho Qualifiers: Encounter type: subsequent encounter Fracture type: closed Fracture healing: with delayed healing Qualified Code(s): S72.001G - Fracture of unspecified part of neck of right femur, subsequent encounter for closed fracture with delayed healing Subjective Principal diagnosis: right hip fracture, ESRD on dialysis Interval history: Interim events noted. Pt seen and examined on HD today with no new complaints. Per HD nurse, BP readings low int eh 90s-100s systolic making UF difficult Objective - Vital Signs Vital signs: Vital Signs Temp Pulse Resp BP Pulse Ox 11/02/17 14:02 99 18 131/63 90 11/02/17 07:07 98.1 F 80 17 93/42 93 11/02/17 03:44 97.4 F L 73 17 101/65 97 11/02/17 01:03 97.8 F 83 17 96/54 94 11/01/17 22:30 97.4 F L 93 16 114/66 98 11/01/17 21:30 97.4 F L 92 18 105/61 97 11/01/17 20:30 97.7 F 94 18 105/63 94 11/01/17 19:30 97.9 F 90 18 105/60 97 11/01/17 18:51 86 12 106/63 93 11/01/17 18:41 86 16 103/59 99 11/01/17 18:31 99.4 F 85 20 102/63 97 Intake and Output 11/01/17 11/02/17 11/02/17 23:59 07:59 15:59 Intake Total 250 / 250 Output Total 410 / 410 200 / 200 Balance -410 / -410 50 / 50 Intake: IV Fluids 50 / 50 Cleocin Premix 900 MG/50 ML 900 50 / 50 mg In 50 ml @ 50 mls/hr IVPB Q8H [facility] Rx#:[id number] Oral 200 / 200 Output: Estimated Blood Loss 10 Urine Amount (Catheter) 400 / 400 Catheter 200 / 200 - General Appearance General appearance: Present: chronically ill EENT: Present: ATNC, mucous membranes moist Neck: Present: no JVD, supple Respiratory: Present: course breath sounds Cardiology: Present: edema (LE bilat), normal S1, normal S2 Dialysis Vascular Access: Arteriovenous Fistula thrill: Yes bruit: Yes Gastrointestinal: Present: no tenderness, no guarding Integumentary: Present: warm and dry Neurologic: Present: no focal deficit Musculoskeletal: Present: no deformities Psychiatric: Present: mood/affect appropriate, cooperative - Lab 11/04/17 05:16 11/04/17 05:16 Most recent lab results Calcium 9.2 mg/dL (8.6-10.8) 11/02/17 06:21 - VTE Reasons for not Prescribing Prophylaxis: Not indicated-Anticoagulated or INR therapeutic Documentation of Mechanical Device: Intermittent pneumatic compression device Consult Discharge Plan - Plan Additional Instructions: [facility] DISCHARGE INSTRUCTIONS Dr. Gonzalez PROCEDURE PERFORMED Reduction and fixation of right hip. Incision care -Keep the dressing clean, dry, and intact Weight bearing status -Weightbearing as tolerated to the bilateral lower extremities. Medications -Pain medication per the discharging medical doctor -Coumadin dose per the hospitalist Other -Knee high JOY hose 23 hours per day -Consult physical and occupational therapy for mobilization. -Up to chair with assistance at least twice per day. -Follow up with your primary care physician to discuss testing for bone mineral density. Follow-up with Dr. Gonzalez at the office 2 weeks from the surgery date for a post operative evaluation. Call the office at [phone] to schedule appointment. Referrals: Adolfo Tobias DO [Primary Care Provider] - Boris Gonzalez MD [Partnered Physician] - (Web requested on 11/04/17 @ 2918) Prescriptions: GuaiFENesin/Dextromethorphan [Robitussin/Dm] 10 ml PO Q6HR PRN #200 ml PRN Reason: Cough OxyCODONE/APAP 5/325 [Percocet 5/325 MG] 1 each PO QID PRN #12 tablet PRN Reason: Moderate Pain
[2017-11-02] MEDS: Ipratropium/Albuterol Neb 3 ML IH SCH ×2 (15:42→22:41)
--- NOTE | 2017-11-02 15:51 | Internal Med Progress Note ---
Date of Encounter: 11/02/17 Time of Encounter: 14:00 - Assessment and plan (1) Hip fracture, right Current Visit: Yes Status: Acute Assessment and plan: Orthopedic consult on case. S/P surgery #day 1 Continue pain management and PT /OT Qualifiers: Encounter type: subsequent encounter Fracture type: closed Fracture healing: with delayed healing Qualified Code(s): S72.001G - Fracture of unspecified part of neck of right femur, subsequent encounter for closed fracture with delayed healing (2) PNA (pneumonia) Current Visit: Yes Status: Acute Assessment and plan: Patient is on Vanco and Levaquin. WBC is WNL. Patient denies shortness of breath but has cough. Will continue antibiotics. Add nebulizer and cough syrup. Patient is at high risk because he is on vancomycin need close monitoring. Qualifiers: Pneumonia type: due to Pneumococcus Laterality: right Lung location: unspecified part of lung Qualified Code(s): J13 - Pneumonia due to Streptococcus pneumoniae (3) ESRD (end stage renal disease) on dialysis Current Visit: Yes Status: Chronic Assessment and plan: On hemodialysis (4) Atrial fibrillation Current Visit: Yes Status: Chronic Assessment and plan: Heart rate is well controlled. On Coumadin. F/U PT/INR Qualifiers: Atrial fibrillation type: chronic Qualified Code(s): I48.2 - Chronic atrial fibrillation (5) CHF (congestive heart failure) Current Visit: Yes Status: Acute Assessment and plan: Patient appears euvolemic at this point. Cont home med. Qualifiers: Congestive heart failure type: diastolic Congestive heart failure chronicity: chronic Qualified Code(s): I50.32 - Chronic diastolic (congestive ) heart failure (6) DVT prophylaxis Current Visit: Yes Status: Acute Assessment and plan: Patient is on Coumadin. - Time Spent With Patient Greater than 35 minutes - Subjective Interval history: I saw and examined the patient today. Had internal fixation yesterday.. Denies chest pain or shortness of breath. Mild cough after taking pills. Vital signs stable no fever. Swallow evaluation done, diet per recommended. - Constitutional Vitals: Temp Pulse Resp BP Pulse Ox 98.1 F 99 18 131/63 90 11/02/17 07:07 11/02/17 14:02 11/02/17 14:02 11/02/17 14:02 11/02/17 14:02 General appearance: Present: cooperative, A&O X 3, pleasant, no acute distress, answers questions appropriately - Head Head exam: Present: atraumatic, normocephalic - Eye Eye exam: Present: PERRL, conjuntiva pink, sclera anicteric Pupils: Present: PERRL - Neck Neck exam general surgery: Present: supple, trachea midline. Absent: lymphadenopathy - Respiratory Respiratory exam: Present: CTAB, wheezes (Scattered wheezes B/L on lung base.). Absent: accessory muscle use, rales, rhonchi - Cardiovascular Cardiovascular exam: Present: RRR, +S1, +S2. Absent: diastolic murmur, gallop, rubs, systolic murmur - GI/Abdominal GI/Abdominal exam: Present: normal bowel sounds, soft, no peritoneal signs. Absent: distended, tenderness - Extremities Exam Extremities exam: Present: warm, radial pulses palpable and symmetrical. Absent : calf tenderness, cyanotic, pedal edema - Neurological Exam Neurological exam: Present: CN II-XII intact, oriented X3, no focal deficits. Absent: pronater drift, facial droop, speech deficit - Skin Skin exam: Present: dry, intact Internal Medicine: Result - Labs CBC & Chem 7: 11/02/17 06:21 11/02/17 06:21 Labs: Short CBC 11/02/17 Range/Units 06:21 WBC 9.4 (4.3-11.1) K/mcL Hgb 10.1 L (12.9-16.9) g/dL Hct 30.8 L (37.5-50.1) % Plt Count 262 (140-400) K/mcL Neutrophils # 9.0 H (1.6-8.9) K/mcL BMP 11/02/17 06:21 Sodium 138 Potassium 5.6 H D Chloride 95 L Carbon Dioxide 22 BUN 57 H D Creatinine 5.53 H Glucose 152 H Calcium 9.2 - ABG Interpretation ABG results: PT/INR, D-dimer PT 26.1 Seconds (9.4-12.1) H 11/02/17 06:21 - Impressions Impressions Fluoroscopy 11/01/17 00:00 IMPRESSION: Intraprocedural fluoroscopic spot images as above. See separate procedure report for more information. D/ / Miguel Angel Puente / Miguel Angel Puente Interpreting Provider: Miguel Angel Puente - VTE Reasons for not Prescribing Prophylaxis: Not indicated-Anticoagulated or INR therapeutic Documentation of Mechanical Device: Intermittent pneumatic compression device Consult Discharge Plan - Plan Referrals: Adolfo Tobias DO [Primary Care Provider] -
[2017-11-02] MEDS ORDERED: Warfarin perPT PO PRN (18:00)
[2017-11-02] MEDS ORDERED: *HR* Warfarin 2.5 MG TABLET PO ONE (18:00)
[2017-11-02] MEDS: Mirtazapine 15 MG TABLET PO SCH (19:45)
[2017-11-02] MEDS: *HR* OxyCODONE/APAP 5/325 TABLET PO PRN (19:46)
[2017-11-02] MEDS ORDERED: Aspirin Enteric Coated 325 MG Tablet PO SCH (21:00)
[2017-11-02] MEDS: *HR* Morphine 2 MG/ML SYRINGE IVP PRN (21:31)
[2017-11-03] MEDS: *HR* OxyCODONE/APAP 5/325 TABLET PO PRN ×3 (03:58→20:56)
[2017-11-03] MEDS: Ipratropium/Albuterol Neb 3 ML IH SCH ×4 (04:15→22:52)
[2017-11-03 05:13] LABS: Basophils % 0.2 %; Hematocrit 26.8 % (37.5-50.1); Hemoglobin 8.9 g/dL (12.9-16.9); Immature Granulocytes % 0.3 % (0-4); Lymphocytes # 0.3 K/mcL (0.6-4.6); Lymphocytes % 2.2 %; Mean Corpuscular HGB Conc 33.2 g/dL (31.6-35.5); Mean Corpuscular Hemoglobin 28.9 pg (28.0-33.3); Mean Platelet Volume 11.8 fL (9.4-12.4); Monocytes # 1.3 K/mcL (0.0-1.3); Neutrophils # 10.4 K/mcL (1.6-8.9); Nucleated Red Blood Cells 0.8 /100 WBC (0); Platelet Count 239 K/mcL (140-400); Red Blood Count 3.08 M/mcL (4.19-5.50); Red Cell Distribution Width 17.3 % (11.5-14.5); Segmented Neutrophils % 86.3 %
[2017-11-03 05:18] LABS: INR 2.8
[2017-11-03 05:36] LABS: Albumin 2.6 g/dL (3.5-5.0); Albumin/Globulin Ratio 0.8 (1.1-2.2); Bilirubin,Total 1.4 mg/dL (0.2-1.2); Calcium 8.9 mg/dL (8.6-10.8); Globulin 3.3 g/dL (2.4-3.5); Potassium 4.4 mEq/L (3.5-4.5); Total Protein 5.9 g/dL (6.0-8.3)
[2017-11-03] MEDS: Ascorbic Acid 500 MG TABLET PO SCH (07:37)
[2017-11-03] MEDS: Finasteride 5 MG TABLET PO SCH (07:37)
[2017-11-03] MEDS: Loratadine 10 MG TABLET PO SCH (07:38)
[2017-11-03] MEDS: Multivit/Ca/Min/Fe/FA 1 TAB TABLET PO SCH (07:39)
--- NOTE | 2017-11-03 09:54 | Nephrology Progress Note ---
Date of Encounter: 11/04/17 Time of Encounter: 10:00 - Assessment and Plan (1) ESRD (end stage renal disease) on dialysis Current Visit: Yes Status: Chronic Will proceed with UF today with gaol of 3kg Will use albumin boluses as needed to maintain adequate BP readings Next full HD treatment planned for sunday if still hospitalized Subjective Principal diagnosis: right hip fracture, ESRD on dialysis Interval history: Pt seen and examined complaining of productive cough and leg pain, positional Objective - Vital Signs Vital signs: Vital Signs Temp Pulse Resp BP Pulse Ox 11/03/17 08:02 96 11/03/17 06:57 98.4 F 95 16 114/58 96 11/03/17 04:16 18 93 11/03/17 00:16 97.7 F 79 16 104/52 95 11/02/17 22:42 21 94 11/02/17 22:04 97.9 F 92 18 113/61 94 11/02/17 21:00 99 11/02/17 16:26 97.7 F 95 16 112/59 97 11/02/17 15:47 18 94 11/02/17 14:02 99 18 131/63 90 11/02/17 13:00 97.5 F L 16 112/69 11/02/17 12:15 120/63 11/02/17 11:45 107/55 11/02/17 11:15 103/53 11/02/17 10:45 97/46 11/02/17 10:15 98/63 Intake and Output 11/02/17 11/03/17 11/03/17 23:59 07:59 15:59 Intake Total 118 / 118 240 / 240 Balance 118 / 118 240 / 240 Intake: Oral 118 / 118 240 / 240 Other: Meal Dinner Breakfast Percent of Meal Consumed 100% 90% Stool Size Moderate Stool Consistency soft formed Stool Characteristics Normal for Patient Stool Color Brown # Bowel Movement Diapers 1 - General Appearance General appearance: Present: chronically ill EENT: Present: ATNC, mucous membranes moist Neck: Present: no JVD, supple Respiratory: Present: course breath sounds Cardiology: Present: edema (LE bilat), normal S1, normal S2 Dialysis Vascular Access: Arteriovenous Fistula thrill: Yes bruit: Yes Gastrointestinal: Present: no tenderness, no guarding Integumentary: Present: warm and dry Neurologic: Present: no focal deficit Musculoskeletal: Present: no deformities Psychiatric: Present: mood/affect appropriate, cooperative - Lab 11/04/17 05:16 11/04/17 05:16 Most recent lab results Calcium 8.9 mg/dL (8.6-10.8) 11/03/17 05:03 - VTE Reasons for not Prescribing Prophylaxis: Not indicated-Anticoagulated or INR therapeutic Documentation of Mechanical Device: Intermittent pneumatic compression device Consult Discharge Plan - Plan Additional Instructions: CARE HOME DISCHARGE INSTRUCTIONS Dr. Gonzalez PROCEDURE PERFORMED Reduction and fixation of right hip. Incision care -Keep the dressing clean, dry, and intact Weight bearing status -Weightbearing as tolerated to the bilateral lower extremities. Medications -Pain medication per the discharging medical doctor -Coumadin dose per the hospitalist Other -Knee high JOY hose 23 hours per day -Consult physical and occupational therapy for mobilization. -Up to chair with assistance at least twice per day. -Follow up with your primary care physician to discuss testing for bone mineral density. Follow-up with Dr. Gonzalez at the office 2 weeks from the surgery date for a post operative evaluation. Call the office at [phone] to schedule appointment. Referrals: Adolfo Tobias DO [Primary Care Provider] - Boris Gonzalez MD [Partnered Physician] - (Web requested on 11/04/17 @ 2718) Prescriptions: GuaiFENesin/Dextromethorphan [Robitussin/Dm] 10 ml PO Q6HR PRN #200 ml PRN Reason: Cough OxyCODONE/APAP 5/325 [Percocet 5/325 MG] 1 each PO QID PRN #12 tablet PRN Reason: Moderate Pain
--- NOTE | 2017-11-03 10:00 | Orthopedics Progress Note ---
Date of Encounter: 11/03/17 Time of Encounter: 09:58 - Assessment and Plan (1) Hip fracture, right Current Visit: Yes Status: Acute Qualifiers: Encounter type: subsequent encounter Fracture type: closed Fracture healing: with delayed healing Qualified Code(s): S72.001G - Fracture of unspecified part of neck of right femur, subsequent encounter for closed fracture with delayed healing Subjective Principal diagnosis: right hip fracture, ESRD on dialysis Interval history: S: Pain is well-controlled of the right hip O: Afebrile and vital signs are stable Dressing is clean, dry, and intact. I can gently passively range the hip with moderate pain He conversed flex and plantar flex ankle and toes The foot is sensate and well-perfused A: Post internal fixation of the right hip, doing well P: At this point my recommendation is therapy Weightbearing as tolerated on the bilateral lower extremities Coumadin for DVT prophylaxis Orthopedically stable for discharge. Objective Vital signs: Vital Signs Temp Pulse Resp BP Pulse Ox 11/03/17 08:02 96 11/03/17 06:57 98.4 F 95 16 114/58 96 11/03/17 04:16 18 93 11/03/17 00:16 97.7 F 79 16 104/52 95 11/02/17 22:42 21 94 11/02/17 22:04 97.9 F 92 18 113/61 94 11/02/17 21:00 99 11/02/17 16:26 97.7 F 95 16 112/59 97 11/02/17 15:47 18 94 11/02/17 14:02 99 18 131/63 90 11/02/17 13:00 97.5 F L 16 112/69 11/02/17 12:15 120/63 11/02/17 11:45 107/55 11/02/17 11:15 103/53 11/02/17 10:45 97/46 11/02/17 10:15 98/63 Intake and Output 11/02/17 11/03/17 11/03/17 23:59 07:59 15:59 Intake Total 118 / 118 240 / 240 Balance 118 / 118 240 / 240 Intake: Oral 118 / 118 240 / 240 Other: Meal Dinner Breakfast Percent of Meal Consumed 100% 90% Stool Size Moderate Stool Consistency soft formed Stool Characteristics Normal for Patient Stool Color Brown # Bowel Movement Diapers 1 - Labs CBC & BMP: 11/03/17 05:03 11/03/17 05:03 Labs: Abnormal lab results WBC 12.0 K/mcL (4.3-11.1) H 11/03/17 05:03 RBC 3.08 M/mcL (4.19-5.50) L 11/03/17 05:03 Hgb 8.9 g/dL (12.9-16.9) L 11/03/17 05:03 Hct 26.8 % (37.5-50.1) L 11/03/17 05:03 RDW 17.3 % (11.5-14.5) H 11/03/17 05:03 Neutrophils # 10.4 K/mcL (1.6-8.9) H 11/03/17 05:03 Lymphocytes # 0.3 K/mcL (0.6-4.6) L 11/03/17 05:03 Nucleated RBCs/100 WBC 0.8 /100 WBC (0) H 11/03/17 05:03 PT 31.0 Seconds (9.4-12.1) H 11/03/17 05:03 APTT 38.3 Seconds (26.0-36.0) H 10/30/17 03:17 BUN 42 mg/dL (8-26) H D 11/03/17 05:03 Creatinine 4.27 mg/dL (0.72-1.25) H 11/03/17 05:03 Est GFR ( Amer) 16 (> 60) L 11/03/17 05:03 Est GFR (Non-Af Amer) 14 (> 60) L 11/03/17 05:03 Glucose 143 mg/dL (70-99) H 11/03/17 05:03 Calculated Osmolality 303 (280-300) H 11/03/17 05:03 Total Bilirubin 1.4 mg/dL (0.2-1.2) H 11/03/17 05:03 AST 55 Units/L (5-34) H 11/03/17 05:03 Alkaline Phosphatase 898 Units/L (38-126) H 11/03/17 05:03 Troponin I 0.12 ng/mL (0-0.03) H* 10/30/17 03:17 Serum Total Protein 5.9 g/dL (6.0-8.3) L 11/03/17 05:03 Albumin 2.6 g/dL (3.5-5.0) L 11/03/17 05:03 Albumin/Globulin Ratio 0.8 (1.1-2.2) L 11/03/17 05:03 - VTE Reasons for not Prescribing Prophylaxis: Not indicated-Anticoagulated or INR therapeutic Documentation of Mechanical Device: Intermittent pneumatic compression device Consult Discharge Plan - Plan Additional Instructions: [facility] DISCHARGE INSTRUCTIONS Dr. Gonzalez PROCEDURE PERFORMED Reduction and fixation of right hip. Incision care -Keep the dressing clean, dry, and intact Weight bearing status -Weightbearing as tolerated to the bilateral lower extremities. Medications -Pain medication per the discharging medical doctor -Coumadin dose per the hospitalist Other -Knee high JOY hose 23 hours per day -Consult physical and occupational therapy for mobilization. -Up to chair with assistance at least twice per day. -Follow up with your primary care physician to discuss testing for bone mineral density. Follow-up with Dr. Gonzalez at the office 2 weeks from the surgery date for a post operative evaluation. Call the office at [phone] to schedule appointment. Referrals: Adolfo Tobias DO [Primary Care Provider] -
[2017-11-03] MEDS ORDERED: Aminoglycoside Consult 1 EACH MC ONE (13:13)
--- NOTE | 2017-11-03 14:21 | Internal Med Progress Note ---
Date of Encounter: 11/03/17 Time of Encounter: 09:00 - Assessment and plan (1) Hip fracture, right Current Visit: Yes Status: Acute Assessment and plan: Orthopedic consult on case. S/P surgery #day 2 Continue pain management and PT /OT Qualifiers: Encounter type: subsequent encounter Fracture type: closed Fracture healing: with delayed healing Qualified Code(s): S72.001G - Fracture of unspecified part of neck of right femur, subsequent encounter for closed fracture with delayed healing (2) PNA (pneumonia) Current Visit: Yes Status: Acute Assessment and plan: Patient is on Vanco and Levaquin. WBC is mild elevated. Patient denies shortness of breath. Cough has improved. Will continue antibiotics. Add nebulizer and cough syrup. Patient is at high risk because he is on vancomycin need close monitoring. Qualifiers: Pneumonia type: due to Pneumococcus Laterality: right Lung location: unspecified part of lung Qualified Code(s): J13 - Pneumonia due to Streptococcus pneumoniae (3) ESRD (end stage renal disease) on dialysis Current Visit: Yes Status: Chronic Assessment and plan: On hemodialysis (4) Atrial fibrillation Current Visit: Yes Status: Chronic Assessment and plan: Heart rate is well controlled. On Coumadin. F/U PT/INR Qualifiers: Atrial fibrillation type: chronic Qualified Code(s): I48.2 - Chronic atrial fibrillation (5) CHF (congestive heart failure) Current Visit: Yes Status: Acute Assessment and plan: Patient appears euvolemic at this point. Cont home med. Qualifiers: Congestive heart failure type: diastolic Congestive heart failure chronicity: chronic Qualified Code(s): I50.32 - Chronic diastolic (congestive ) heart failure (6) DVT prophylaxis Current Visit: Yes Status: Acute Assessment and plan: Patient is on Coumadin. (7) Scrotal edema Current Visit: Yes Status: Acute Assessment and plan: Nontender. Possibly multi factoral include CHF, ESRD and malnutrition. Will cont HD as scheduled and consult RD for diet supplement. - Time Spent With Patient Greater than 35 minutes - Subjective Interval history: I saw and examined the patient today. Had internal fixation POD 2.. Denies chest pain or shortness of breath. No cough. Has scrotum swelling. Vital signs stable no fever. Will cont PT/OT. Mild elevated WBC noticed. Patient has no significant signs of infection, cough has improved actually. However, will continue IV antibiotic, closely monitor WBC level. - Constitutional Vitals: Temp Pulse Resp BP Pulse Ox 97.7 F 82 16 119/67 98 11/03/17 13:47 11/03/17 13:47 11/03/17 13:47 11/03/17 13:47 11/03/17 13:47 General appearance: Present: cooperative, A&O X 3, pleasant, no acute distress, answers questions appropriately - Head Head exam: Present: atraumatic, normocephalic - Eye Eye exam: Present: PERRL, conjuntiva pink, sclera anicteric Pupils: Present: PERRL - Neck Neck exam general surgery: Present: supple, trachea midline. Absent: lymphadenopathy - Respiratory Respiratory exam: Present: CTAB. Absent: accessory muscle use, rales, rhonchi, wheezes - Cardiovascular Cardiovascular exam: Present: RRR, +S1, +S2. Absent: diastolic murmur, gallop, rubs, systolic murmur - GI/Abdominal GI/Abdominal exam: Present: normal bowel sounds, soft, no peritoneal signs. Absent: distended, tenderness - exam: Present: scrotal swelling (Moderate scrotal swelling.) - Extremities Exam Extremities exam: Present: warm, radial pulses palpable and symmetrical. Absent : calf tenderness, cyanotic, pedal edema - Neurological Exam Neurological exam: Present: CN II-XII intact, oriented X3, no focal deficits. Absent: pronater drift, facial droop, speech deficit - Skin Skin exam: Present: dry, intact Internal Medicine: Result - Labs CBC & Chem 7: 11/03/17 05:03 11/03/17 05:03 Labs: Short CBC 11/03/17 Range/Units 05:03 WBC 12.0 H (4.3-11.1) K/mcL Hgb 8.9 L (12.9-16.9) g/dL Hct 26.8 L (37.5-50.1) % Plt Count 239 (140-400) K/mcL Neutrophils # 10.4 H (1.6-8.9) K/mcL BMP 11/03/17 05:03 Sodium 140 Potassium 4.4 D Chloride 98 Carbon Dioxide 29 BUN 42 H D Creatinine 4.27 H Glucose 143 H Calcium 8.9 Liver Function 11/03/17 Range/Units 05:03 Total Bilirubin 1.4 H (0.2-1.2) mg/dL AST 55 H (5-34) Units/L ALT 32 (0-55) Units/L Alkaline Phosphatase 898 H (38-126) Units/L Albumin 2.6 L (3.5-5.0) g/dL - ABG Interpretation ABG results: PT/INR, D-dimer PT 31.0 Seconds (9.4-12.1) H 11/03/17 05:03 - VTE Reasons for not Prescribing Prophylaxis: Not indicated-Anticoagulated or INR therapeutic Documentation of Mechanical Device: Intermittent pneumatic compression device Consult Discharge Plan - Plan Additional Instructions: RETIREMENT DISCHARGE INSTRUCTIONS Dr. Gonzalez PROCEDURE PERFORMED Reduction and fixation of right hip. Incision care -Keep the dressing clean, dry, and intact Weight bearing status -Weightbearing as tolerated to the bilateral lower extremities. Medications -Pain medication per the discharging medical doctor -Coumadin dose per the hospitalist Other -Knee high JOY hose 23 hours per day -Consult physical and occupational therapy for mobilization. -Up to chair with assistance at least twice per day. -Follow up with your primary care physician to discuss testing for bone mineral density. Follow-up with Dr. Gonzalez at the office 2 weeks from the surgery date for a post operative evaluation. Call the office at [phone] to schedule appointment. Referrals: Adolfo Tobias DO [Primary Care Provider] -
[2017-11-03] MEDS ORDERED: Albumin 25% 12.5gm/50mL 12.5 GM/50 ML IV.SOLN IVPB PRN (14:44)
[2017-11-03] MEDS ORDERED: 0.9 % Sodium Chloride 250 ML IVC PRN (14:44)
[2017-11-03] MEDS ORDERED: 0.9 % Sodium Chloride 1,000 ML PRIME SCH (14:45)
[2017-11-03] MEDS ORDERED: Albumin 25% 12.5gm/50mL 12.5 GM/50 ML IV.SOLN ONE (15:00)
[2017-11-03] MEDS ORDERED: 0.9 % Sodium Chloride 2,000 ML ONE (15:00)
[2017-11-03] MEDS ORDERED: *HR* Warfarin 1 MG TABLET PO ONE (18:00)
[2017-11-03] MEDS: Mirtazapine 15 MG TABLET PO SCH (19:30)
[2017-11-03] MEDS: Levofloxacin 500 MG/100 ML 500 MG/100 ML BAG IVPB SCH (19:31)
[2017-11-04] MEDS: *HR* Morphine 2 MG/ML SYRINGE IVP PRN (00:23)
[2017-11-04] MEDS: *HR* OxyCODONE/APAP 5/325 TABLET PO PRN ×2 (03:42→13:00)
[2017-11-04] MEDS: Ipratropium/Albuterol Neb 3 ML IH SCH ×2 (05:09→11:00)
[2017-11-04] MEDS ORDERED: Vancomycin 500 MG in D5% in Water 100 ML IVPB ONE (06:00)
[2017-11-04 06:27] LABS: Prothrombin Time 21.9 Seconds (9.4-12.1)
[2017-11-04 06:36] LABS: Calcium 9.1 mg/dL (8.6-10.8); Potassium 4.2 mEq/L (3.5-4.5)
[2017-11-04 06:59] LABS: Basophils % 0.2 %; Eosinophils # 0.1 K/mcL (0.0-0.6); Eosinophils % 1.2 %; Hematocrit 27.1 % (37.5-50.1); Hemoglobin 8.8 g/dL (12.9-16.9); Immature Granulocytes % 0.2 % (0-4); Lymphocytes # 0.3 K/mcL (0.6-4.6); Lymphocytes % 3.1 %; Mean Corpuscular HGB Conc 32.5 g/dL (31.6-35.5); Mean Corpuscular Hemoglobin 28.3 pg (28.0-33.3); Mean Corpuscular Volume 87.1 fL (83.0-100.0); Mean Platelet Volume 12.5 fL (9.4-12.4); Monocytes # 0.9 K/mcL (0.0-1.3); Monocytes % 10.9 %; Platelet Count 261 K/mcL (140-400); Red Blood Count 3.11 M/mcL (4.19-5.50); Red Cell Distribution Width 17.3 % (11.5-14.5); Segmented Neutrophils % 84.4 %
[2017-11-04] MEDS: Ascorbic Acid 500 MG TABLET PO SCH (07:49)
[2017-11-04] MEDS: Multivit/Ca/Min/Fe/FA 1 TAB TABLET PO SCH (07:49)
[2017-11-04] MEDS: Loratadine 10 MG TABLET PO SCH (07:50)
[2017-11-04] MEDS: Finasteride 5 MG TABLET PO SCH (07:50)
--- NOTE | 2017-11-04 09:07 | Orthopedics Progress Note ---
Date of Encounter: 11/04/17 Time of Encounter: 09:07 - Assessment and Plan (1) Hip fracture, right Current Visit: Yes Status: Acute Qualifiers: Encounter type: subsequent encounter Fracture type: closed Fracture healing: with delayed healing Qualified Code(s): S72.001G - Fracture of unspecified part of neck of right femur, subsequent encounter for closed fracture with delayed healing Subjective Principal diagnosis: right hip fracture, ESRD on dialysis Interval history: S: Pain is well-controlled of the right hip O: Afebrile and vital signs are stable Dressing is clean, dry, and intact. I can gently passively range the hip with moderate pain He can dorsiflex and plantarflex ankle and toes The foot is sensate and well-perfused A: Post internal fixation of the right hip, doing well P: At this point my recommendation is therapy Weightbearing as tolerated on the bilateral lower extremities Coumadin for DVT prophylaxis Orthopedically stable for discharge. Objective Vital signs: Vital Signs Temp Pulse Resp BP Pulse Ox 11/04/17 07:19 98.2 F 101 14 98/59 93 11/04/17 05:09 16 98 11/03/17 22:52 14 97 11/03/17 19:47 98 F 104 16 99/64 98 11/03/17 18:35 97.3 F L 18 96/58 11/03/17 18:20 90/48 11/03/17 18:05 96/47 11/03/17 17:50 99/54 11/03/17 17:35 91/55 11/03/17 17:20 92/55 11/03/17 17:05 117/53 11/03/17 16:50 106/53 11/03/17 16:35 90/46 11/03/17 16:20 97.1 F L 18 113/56 11/03/17 13:47 97.7 F 82 16 119/67 98 11/03/17 11:50 16 97 Intake and Output 11/03/17 11/04/17 11/04/17 23:59 07:59 15:59 Intake Total 600 / 600 100 / 100 Output Total 3600 / 3600 Balance -3000 / -3000 100 / 100 Intake: IV Fluids 100 / 100 Vancocin 500 MG In Dextrose 5% 100 / 100 100 ML @ 100 mls/hr IVPB ONCE ONE Rx#:[id number] Oral 0 / 0 Intake, Rinseback and Flushes 600 / 600 Output: Urine 0 / 0 Total Dialysis (HD) Output 3600 / 3600 Other: Meal Dinner Percent of Meal Consumed 80% Weight 61.235 kg Hemodialysis Net Fluid Removed 3000 (mL) - Labs CBC & BMP: 11/04/17 05:16 11/04/17 05:16 Labs: Abnormal lab results RBC 3.11 M/mcL (4.19-5.50) L 11/04/17 05:16 Hgb 8.8 g/dL (12.9-16.9) L 11/04/17 05:16 Hct 27.1 % (37.5-50.1) L 11/04/17 05:16 RDW 17.3 % (11.5-14.5) H 11/04/17 05:16 MPV 12.5 fL (9.4-12.4) H 11/04/17 05:16 Lymphocytes # 0.3 K/mcL (0.6-4.6) L 11/04/17 05:16 Nucleated RBCs/100 WBC 1.0 /100 WBC (0) H 11/04/17 05:16 PT 21.9 Seconds (9.4-12.1) H 11/04/17 05:16 APTT 38.3 Seconds (26.0-36.0) H 10/30/17 03:17 Carbon Dioxide 30 mEq/L (19-29) H 11/04/17 05:16 BUN 46 mg/dL (8-26) H 11/04/17 05:16 Creatinine 4.36 mg/dL (0.72-1.25) H 11/04/17 05:16 Est GFR ( Amer) 16 (> 60) L 11/04/17 05:16 Est GFR (Non-Af Amer) 13 (> 60) L 11/04/17 05:16 Calculated Osmolality 303 (280-300) H 11/04/17 05:16 Total Bilirubin 1.4 mg/dL (0.2-1.2) H 11/03/17 05:03 AST 55 Units/L (5-34) H 11/03/17 05:03 Alkaline Phosphatase 898 Units/L (38-126) H 11/03/17 05:03 Troponin I 0.12 ng/mL (0-0.03) H* 10/30/17 03:17 Serum Total Protein 5.9 g/dL (6.0-8.3) L 11/03/17 05:03 Albumin 2.6 g/dL (3.5-5.0) L 11/03/17 05:03 Albumin/Globulin Ratio 0.8 (1.1-2.2) L 11/03/17 05:03 - VTE Reasons for not Prescribing Prophylaxis: Not indicated-Anticoagulated or INR therapeutic Documentation of Mechanical Device: Intermittent pneumatic compression device Consult Discharge Plan - Plan Additional Instructions: [facility] DISCHARGE INSTRUCTIONS Dr. Gonzalez PROCEDURE PERFORMED Reduction and fixation of right hip. Incision care -Keep the dressing clean, dry, and intact Weight bearing status -Weightbearing as tolerated to the bilateral lower extremities. Medications -Pain medication per the discharging medical doctor -Coumadin dose per the hospitalist Other -Knee high JOY hose 23 hours per day -Consult physical and occupational therapy for mobilization. -Up to chair with assistance at least twice per day. -Follow up with your primary care physician to discuss testing for bone mineral density. Follow-up with Dr. Gonzalez at the office 2 weeks from the surgery date for a post operative evaluation. Call the office at [phone] to schedule appointment. Referrals: Adolfo Tobias DO [Primary Care Provider] -
--- NOTE | 2017-11-04 09:46 | Discharge Summary ---
Date of Encounter: 11/04/17 Time of Encounter: 09:00 - Discharge Diagnosis (1) Hip fracture, right Priority: Primary Status: Acute Qualifiers: Encounter type: subsequent encounter Fracture type: closed Fracture healing: with delayed healing Qualified Code(s): S72.001G - Fracture of unspecified part of neck of right femur, subsequent encounter for closed fracture with delayed healing (2) PNA (pneumonia) Priority: Primary Status: Acute Qualifiers: Pneumonia type: due to Pneumococcus Laterality: right Lung location: unspecified part of lung Qualified Code(s): J13 - Pneumonia due to Streptococcus pneumoniae (3) ESRD (end stage renal disease) on dialysis Priority: Secondary Status: Chronic (4) Atrial fibrillation Priority: Secondary Status: Chronic Qualifiers: Atrial fibrillation type: chronic Qualified Code(s): I48.2 - Chronic atrial fibrillation (5) CHF (congestive heart failure) Priority: Secondary Status: Acute Qualifiers: Congestive heart failure type: diastolic Congestive heart failure chronicity: chronic Qualified Code(s): I50.32 - Chronic diastolic (congestive ) heart failure (6) DVT prophylaxis Priority: Secondary Status: Acute (7) Scrotal edema Priority: Primary Status: Acute - Discharge Medications Prescriptions: GuaiFENesin/Dextromethorphan [Robitussin/Dm] 10 ml PO Q6HR PRN #200 ml PRN Reason: Cough OxyCODONE/APAP 5/325 [Percocet 5/325 MG] 1 each PO QID PRN #12 tablet PRN Reason: Moderate Pain Home Medications: Aspirin [Lo-Dose Aspirin EC] 81 mg PO DAILY 07/26/16 [History] Finasteride [Proscar] 5 mg PO DAILY 07/26/16 [History] Metoprolol [Lopressor] 25 mg PO BID 07/26/16 [History] Sodium Bicarbonate 650 mg PO BID 07/26/16 [History] Vit A/C/E AC/Znox/Cupric Oxide [Eye Vitamin-Minerals Tablet] 1 tab PO BID [History] Polyvinyl Alcohol/Povidone/Pf [Refresh Classic Eye Drops] 1 drop OP BID [History] Polyethylene Glycol 3350 [MiraLAX] 17 gm PO Q48H 11/20/16 [History] Atorvastatin Calcium [Lipitor] 20 mg PO HS 12/22/16 [History] Fluticasone Propionate Nasal [Flonase] 1 spr NS DAILY PRN 05/03/17 [History] Mirtazapine [Remeron] 15 mg PO HS 05/03/17 [History] Pantoprazole Sodium [Protonix] 40 mg PO BID 05/03/17 [History] Sevelamer [Renvela] 1,600 mg PO TIDWM 05/03/17 [History] Ascorbic Acid [Vitamin C] 500 mg PO DAILY 06/29/17 [History] EPINEPHrine [Epipen] 0.3 mg IM ONCE PRN 06/29/17 [History] Cetirizine HCl [Zyrtec] 10 mg PO DAILY 10/29/17 [History] Dronabinol [Marinol] 2.5 mg PO DAILY 10/29/17 [History] Montelukast [Singulair] 10 mg PO DAILY 10/29/17 [History] Multivitamin [One Daily Essential] 1 each PO DAILY 10/29/17 [History] Ofloxacin OPTH Drops [Ocuflox] 1 drop OP QID 10/29/17 [History] Oxygen 3 l NS AD 10/29/17 [History] PrednisoLONE Acetate 1% Opth [PredFORTE 1%] 1 drop OP QID 10/29/17 [History] Warfarin [Coumadin] 2.5 mg PO SUMOTUWETHSA 10/29/17 [History] GuaiFENesin/Dextromethorphan [Robitussin/Dm] 10 ml PO Q6HR PRN #200 ml 11/04/17 [Rx] OxyCODONE/APAP 5/325 [Percocet 5/325 MG] 1 each PO QID PRN #12 tablet 11/04/17 [ Rx] Allergies/Adverse Reactions: 3 Allergy/AdvReac Type Severity Reaction Status Date / Time Amoxicillin Allergy Swelling Verified 08/09/17 08:53 of Lip/Tongue/Throat Penicillins [PCN] Allergy Anaphylaxis Verified 08/09/17 08:53 venom-honey bee Allergy Anaphylaxis Verified 08/09/17 08:53 [bee venom (honey bee)] Procedures/tests Complete & Pending: Procedures Performed prior 72 hours Category Date Time Status US abdomen limited [US] Routine Exams 11/05/17 08:13 Ordered - Notes to Outpatient Provider 1. Patient is on Coumadin, please follow-up PT/INR Date of admission: 12/04/17 15:19 Primary care physician: Adolfo Tobias DO Consults: 10/29/17 16:44 Consult to [employer] [CONS] Routine Reason for SW Consult: discharge planning, potential need for SNF 10/29/17 18:25 Consult to Cardiology [CONS] Routine Comment: Consulting Provider: Blessing Montenegro Reason for Consult: surgical clearance Time Notified: 18:26 Call Completed: Yes 10/31/17 04:30 Consult to Dialysis [CONS] ONCE 11/01/17 18:37 Consult to Occupational Therapy [CONS] Routine Comment: Evaluate, develop and implement POC Reason for Consult: post hip surgery Consult to Physical Therapy [CONS] Routine Comment: Evaluate, develop and implement POC Reason for Consult: post hip surgery Consult to [employer] Electronics [employer] [CONS] Routine Reason for SW Consult: post -op hip fracture 11/02/17 05:30 Consult to Dialysis [CONS] ONCE 11/02/17 14:20 Consult to Speech Therapy [CONS] Routine Comment: Evaluate, develop and implement POC Reason for Consult: swallow eval 11/03/2017 Call Completed: Yes 11/02/17 17:14 Consult to Nutrition [CONS] Routine Comment: Consulting Provider: NUTRITION Reason for Dietary Consult: MST Score 11/03/17 14:45 Consult to Dialysis [CONS] ONCE Discharging clinician: Bebe Knight Anticipated date of discharge: 11/04/17 - Patient Status Disposition: Transfer Inpatient Rehab Fac Condition: Good Functional capacity at discharge: uses cane/walker Overall status at discharge: patient is progressing back to baseline - Discharge Instructions Follow Up With: Adolfo Tobias DO [Primary Care Provider] - Additional Instructions: LONG-TERM DISCHARGE INSTRUCTIONS Dr. Gonzalez PROCEDURE PERFORMED Reduction and fixation of right hip. Incision care -Keep the dressing clean, dry, and intact Weight bearing status -Weightbearing as tolerated to the bilateral lower extremities. Medications -Pain medication per the discharging medical doctor -Coumadin dose per the hospitalist Other -Knee high JOY hose 23 hours per day -Consult physical and occupational therapy for mobilization. -Up to chair with assistance at least twice per day. -Follow up with your primary care physician to discuss testing for bone mineral density. Follow-up with Dr. Gonzalez at the office 2 weeks from the surgery date for a post operative evaluation. Call the office at [phone] to schedule appointment. - Diet and Activity Activity: as per physical therapy Diet: low fat, low cholesterol, low salt diet, other (Renal diet, advance to soft diet, honey thick liquid diet, Ensure supplements) Hospital course: Mr. Yang is a 77 year old male was admitted for right femoral neck fracture. Orthopedic consult was called, patient had internal fixation surgery. After surgery, patient was placed on PTOT, he recovered well, no complications. Orthopedics cleared to discharge patient to rehabilitation center. Patient also has pneumonia on admission, he was treated with antibiotics and finished a 7 day course. His white count is normal, no fever, mild cough but improved significantly. Patient has history of end-stage renal disease on hemodialysis, will continue dialysis. I saw and examined the patient today. Patient denies pain, shortness of breath , or cough. No fever, vitals are stable. Patient is stable to discharge to ECF for further physical therapy. Continue Coumadin for his A. fib and DVT prophylaxis after orthopedic surgery. Patient will follow-up with orthopedics as outpatient. - Time Spent with Patient Total time spent providing and/or coordinating discharge services: 25 minute Less than 30 minutes - Constitutional Vitals: Temp Pulse Resp BP Pulse Ox 98.2 F 101 14 98/59 93 11/04/17 07:19 11/04/17 09:29 11/04/17 09:29 11/04/17 09:29 11/04/17 09:29 General appearance: Present: cooperative, A&O X 3, pleasant, no acute distress, answers questions appropriately - Head Head exam: Present: atraumatic, normocephalic - Eye Eye exam: Present: PERRL, conjuntiva pink, sclera anicteric Pupils: Present: PERRL - Neck Neck exam general surgery: Present: supple, trachea midline. Absent: lymphadenopathy - Respiratory Respiratory exam: Present: CTAB. Absent: accessory muscle use, rales, rhonchi, wheezes - Cardiovascular Cardiovascular exam: Present: RRR, +S1, +S2. Absent: diastolic murmur, gallop, rubs, systolic murmur - GI/Abdominal GI/Abdominal exam: Present: normal bowel sounds, soft, no peritoneal signs. Absent: distended, tenderness - Extremities Exam Extremities exam: Present: warm, radial pulses palpable and symmetrical. Absent : calf tenderness, cyanotic, pedal edema - Neurological Exam Neurological exam: Present: CN II-XII intact, oriented X3, no focal deficits. Absent: pronater drift, facial droop, speech deficit - Skin Skin exam: Present: dry, intact - VTE Reasons for not Prescribing Prophylaxis: Not indicated-Anticoagulated or INR therapeutic Documentation of Mechanical Device: Intermittent pneumatic compression device
--- NOTE | 2017-11-04 09:56 | Physician Discharge Referral ---
ExtendedCare Referral Info Transfer To: [facility] Provider in Charge after Transfer: Other (F physician) - Diagnosis (1) Hip fracture, right Status: Acute (2) PNA (pneumonia) Status: Acute (3) ESRD (end stage renal disease) on dialysis Status: Chronic (4) Atrial fibrillation Status: Chronic (5) CHF (congestive heart failure) Status: Acute (6) DVT prophylaxis Status: Acute (7) Scrotal edema Status: Acute - Transfer Medications Prescriptions: GuaiFENesin/Dextromethorphan [Robitussin/Dm] 10 ml PO Q6HR PRN #200 ml PRN Reason: Cough OxyCODONE/APAP 5/325 [Percocet 5/325 MG] 1 each PO QID PRN #12 tablet PRN Reason: Moderate Pain Home Medications: Aspirin [Lo-Dose Aspirin EC] 81 mg PO DAILY 07/26/16 [History] Finasteride [Proscar] 5 mg PO DAILY 07/26/16 [History] Metoprolol [Lopressor] 25 mg PO BID 07/26/16 [History] Sodium Bicarbonate 650 mg PO BID 07/26/16 [History] Vit A/C/E AC/Znox/Cupric Oxide [Eye Vitamin-Minerals Tablet] 1 tab PO BID [History] Polyvinyl Alcohol/Povidone/Pf [Refresh Classic Eye Drops] 1 drop OP BID [History] Polyethylene Glycol 3350 [MiraLAX] 17 gm PO Q48H 11/20/16 [History] Atorvastatin Calcium [Lipitor] 20 mg PO HS 12/22/16 [History] Fluticasone Propionate Nasal [Flonase] 1 spr NS DAILY PRN 05/03/17 [History] Mirtazapine [Remeron] 15 mg PO HS 05/03/17 [History] Pantoprazole Sodium [Protonix] 40 mg PO BID 05/03/17 [History] Sevelamer [Renvela] 1,600 mg PO TIDWM 05/03/17 [History] Ascorbic Acid [Vitamin C] 500 mg PO DAILY 06/29/17 [History] EPINEPHrine [Epipen] 0.3 mg IM ONCE PRN 06/29/17 [History] Cetirizine HCl [Zyrtec] 10 mg PO DAILY 10/29/17 [History] Dronabinol [Marinol] 2.5 mg PO DAILY 10/29/17 [History] Montelukast [Singulair] 10 mg PO DAILY 10/29/17 [History] Multivitamin [One Daily Essential] 1 each PO DAILY 10/29/17 [History] Ofloxacin OPTH Drops [Ocuflox] 1 drop OP QID 10/29/17 [History] Oxygen 3 l NS AD 10/29/17 [History] PrednisoLONE Acetate 1% Opth [PredFORTE 1%] 1 drop OP QID 10/29/17 [History] Warfarin [Coumadin] 2.5 mg PO SUMOTUWETHSA 10/29/17 [History] GuaiFENesin/Dextromethorphan [Robitussin/Dm] 10 ml PO Q6HR PRN #200 ml 11/04/17 [Rx] OxyCODONE/APAP 5/325 [Percocet 5/325 MG] 1 each PO QID PRN #12 tablet 11/04/17 [ Rx] Allergies/Adverse Reactions: 3 Allergy/AdvReac Type Severity Reaction Status Date / Time Amoxicillin Allergy Swelling Verified 08/09/17 08:53 of Lip/Tongue/Throat Penicillins [PCN] Allergy Anaphylaxis Verified 08/09/17 08:53 venom-honey bee Allergy Anaphylaxis Verified 08/09/17 08:53 [bee venom (honey bee)] - Respiratory Orders Oxygen / L per min (2-3) Smoking Cessation: Smoking cessation has been advised. For more information, call the [place] Tobacco Quit Line at 9-585-NYTM-NOW. - Lab Orders Lab Orders: Other (include drug levels w/frequency) (PT/INR on 12/12 am) - Advance Directives Code Status: Full Code - Rehabiliation Orders Rehab Orders: Evaluation for Physical Therapy, Evaluation for Occupational Therapy - Diet Orders Mechanical Soft (Advanceed soft diet, honey thickened liquid diet, with Ensure supplements), Renal, Cardiac CERTIFICATION: I certify that the transfer of the above named patient to an Extended Care Facility is necessary for the continuing treatment of the diagnosis listed. The above information is true and accurate reflection of patient's current condition. Confidential - Redisclosure prohibited without a patient's written consent.
[2017-11-04 11:32] VITALS: BP 104/50
== END 2017-11-04 13:14 | DRG 480 ==
LOC: EMEROO 13:41 → 3ANU 15:19 → 3NENU 11-01 16:23
PROVIDERS: ADMIT Internal Medicine; ATTEND Family Medicine

== ENCOUNTER 2018-02-02 21:50 | Inpatient (IN) ==
[2018-02-03] MEDS ORDERED: D5% in 0.9% NACL 1,000 ML IVC ONE (00:35)
[2018-02-03] MEDS ORDERED: *HR* Dextrose 50 % in Water (Syg) 50 ML SYRINGE ONE (00:35)
[2018-02-03] MEDS ORDERED: Acetaminophen 325 MG TABLET PO PRN (01:40)
[2018-02-03] MEDS ORDERED: Naloxone 0.4 MG/ML INJ IVP PRN (01:40)
--- NOTE | 2018-02-03 01:59 | Internal Med History&Physical ---
Date of Encounter: 02/03/18 Time of Encounter: 01:10 Assessment and Plan (1) CHF (congestive heart failure) Current visit: Yes Status: Acute 1. Will consult nephrology for dialysis today. 2. Monitor I/O and daily weight. 3. Wean off IVF as soon as glucose stabilizes. 4. Will order STAT labs including CMP, CBC, coags, CXR, and EKG as I can not find any transfer records/labs from [facility]. Qualifiers: Qualified Code(s): I50.32 - Chronic diastolic (congestive) heart failure (2) Hypoglycemia Current visit: Yes Status: Acute 1. D50 given. 2. Continue MIV with D5.9NS at 100ml/hr. Wean off IVF as glucose stabilizes. (3) C. difficile colitis Current visit: Yes Status: Acute 1. Continue oral Vancomycin and Flagyl. 2. Diarrhea has stopped per patient. (4) GI bleed Current visit: No Status: Chronic 1. Patient had colonoscopy last admission showing colitis and AVM's in stomach on EGD. 2. Patient was taken off Coumadin due to GI bleed. 3. Monitor H/H and for any signs of GI bleeding. Qualifiers: GI bleed type/associated pathology: angiodysplasia of stomach and duodenum Qualified Code(s): K31.811 - Angiodysplasia of stomach and duodenum with bleeding (5) DVT prophylaxis Current visit: No Status: Acute 1. Heparin SQ. Internal Medicine - H&P: HPI Chief complaint: SOB; CHF Admitted From: Hospital to Hospital Transfer Plans for Post Hospital Care: Transfer Correction Facility History of present illness: Mr. Yang is a 77 year old male who was recently hospitalized and was discharged 3 days ago. During that hospital stay, he had C. difficile colitis, GI bleed, and sepsis. He was discharged to [facility] for ongoing therapy. He presented to [facility] in [place] today with complaints of shortness of breath and worsening edema. He is on a Sunday dialysis schedule and has not missed dialysis. However, he still developed fluid retention and shortness of breath. [facility] contacted [facility] for transfer request, and I accepted the patient in transfer. Upon my assessment of the patient, I was notified by nursing staff that he was hypoglycemic and I ordered dextrose 50 meQ IV to be administered followed by IV fluids with D5 0.9 normal saline at 100 mL's per hour. Patient was having some mild respiratory distress and hypoxemia, but otherwise, denied any complaints. He denies any chest pain, fevers, cough, vomiting, or diarrhea. His diarrhea has stopped, but he remains on antibiotics for C. difficile colitis from his last admission. He admits to having weight gain, diffuse lower extremity and abdominal wall edema, and worsening shortness of breath. Appetite has been poor. He voices no other complaints at this time. Unfortunately, I am unable to find any transfer records from [facility]. Very limited information obtained from our transfer center from [facility] revealed that he had a potassium of 5.9, white blood cell count 11.9, and blood pressure 125/ 70. I will order stat labs and address those as they are resulted. Past Med Surg Social Fam HX - Past Medical History Attestation: Yes The following information was validated with the patient. Source: patient, old records reviewed Medical history: arthritis, atrial fibrillation, CHF, dialysis, GERD, hyperlipidemia, osteoporosis, renal disease, valvular heart disease, other Psychiatric history: no psych history - Past Surgical History Surgical History: appendectomy - Social History Smoking Status: Never smoker Smokeless Tobacco Status: No Alcohol use: none Drug use: none Current living situation: [facility] Recent Out of Country Travel Within the Last 8 Weeks: No - Family History Mother Family Member Ethnicity: Non- Living Status: Hx Family Neurologic Disorders: Yes (Dementia) Father Living Status: Hx Family Cardiac Disorders: Yes (Heart Attack, HTN,) Internal Medicine - H&P: Meds Finasteride [Proscar] 5 mg PO DAILY 07/26/16 [History] Metoprolol [Lopressor] 25 mg PO BID 07/26/16 [History] Vit A/C/E AC/Znox/Cupric Oxide [Eye Vitamin-Minerals Tablet] 1 tab PO BID [History] Polyvinyl Alcohol/Povidone/Pf [Refresh Classic Eye Drops] 1 drop OP BID [History] Polyethylene Glycol 3350 [MiraLAX] 17 gm PO Q48H 11/20/16 [History] Atorvastatin Calcium [Lipitor] 20 mg PO HS 12/22/16 [History] Fluticasone Propionate Nasal [Flonase] 1 spr NS DAILY PRN 05/03/17 [History] Mirtazapine [Remeron] 15 mg PO HS 05/03/17 [History] Pantoprazole Sodium [Protonix] 40 mg PO BID 05/03/17 [History] Ascorbic Acid [Vitamin C] 500 mg PO DAILY 06/29/17 [History] Dronabinol [Marinol] 2.5 mg PO DAILY 10/29/17 [History] Montelukast [Singulair] 10 mg PO DAILY 10/29/17 [History] Multivitamin [One Daily Essential] 1 each PO DAILY 10/29/17 [History] Oxygen 3 l NS AD 10/29/17 [History] Lactobacillus Acidophilus [Acidophilus] 100 mg PO BID 01/17/18 [History] Warfarin [Coumadin] 3 mg PO DAILY 01/17/18 [History] OxyCODONE/APAP 5/325 [Percocet 5/325 MG] 1 each PO QID PRN 4 Days #12 tablet 04/12 [Rx] Vancomycin Oral Soln [Vancocin] 250 mg PO QID 2 Days #8 udc 01/28/18 [Rx] 3 Allergy/AdvReac Type Severity Reaction Status Date / Time Amoxicillin Allergy Swelling Verified 08/09/17 08:53 of Lip/Tongue/Throat Penicillins [PCN] Allergy Anaphylaxis Verified 08/09/17 08:53 venom-honey bee Allergy Anaphylaxis Verified 08/09/17 08:53 [bee venom (honey bee)] - Constitutional Constitutional: fatigue, weakness, weight gain, no chills, no fever(s) - EENT Eyes: no blurry vision, no change in vision Ears: no ear pain, no tinnitus Nose, mouth and throat: no nasal congestion, no sinus pressure, no sore throat - Cardiovascular Cardiovascular ROS IM: dyspnea, dyspnea on exertion, edema, orthopnea, paroxysmal nocturnal dyspnea, no chest pain, no syncope - Respiratory Respiratory: no cough, no hemoptysis, no chest congestion, no excessive phlegm production, no change in phlegm color - Gastrointestinal Gastrointestinal: no abdominal pain, no diarrhea, no hematemesis, no hematochezia, no melena, no nausea, no vomiting - Genitourinary Genitourinary ROS male: no dysuria, no flank pain, no hematuria - Musculoskeletal Musculoskeletal ROS IM: no arthralgias, no back pain - Integumentary Integumentary IM: no rash, no jaundice - Neurological Neurological ROS: no disequilibrium, no dizziness, no focal weakness, no frequent falls, no headache(s) - Psychiatric Psychiatric: no anxiety, no depression - Endocrine Endocrine IM: no polydipsia, no polyuria - Hematologic/Lymphatic Hematologic/Lymphatic: easy bruising, no lymphadenopathy - Allergic/Immunologic Allergic/Immunologic: no wheezing, no GI upset with certain foods - Constitutional Vitals: Temp Pulse Resp BP Pulse Ox 96.6 F L 78 16 122/64 96 02/03/18 00:48 02/03/18 00:48 02/03/18 00:48 02/03/18 00:48 02/03/18 00:48 General appearance: Present: cooperative, mild distress (respiratory ), A&O X 3 , pleasant, answers questions appropriately - Head Head exam: Present: normal inspection - Eye Eye exam: Present: EOMI, normal appearance, PERRL. Absent: scleral icterus Pupils: Present: normal accommodation - ENT ENT exam: Present: mucous membranes dry, normal exam, normal oropharynx - Neck Neck exam general surgery: Present: full ROM, supple. Absent: tenderness, nuchal rigidity, thyromegaly - Respiratory Respiratory exam: Present: accessory muscle use, rales (both bases about 1/[address] way up), respiratory distress (mild). Absent: chest wall tenderness, rhonchi, wheezes - Cardiovascular Cardiovascular exam: Present: distant heart sounds, irregular rhythm, JVD, +S1, +S2. Absent: diastolic murmur, systolic murmur - GI/Abdominal GI/Abdominal exam: Present: soft. Absent: guarding, hepatomegaly, mass, rebound , splenomegaly, tenderness Additional comments: edema/anasarca up to abdomen - Extremities Exam Extremities exam: Present: full ROM, normal capillary refill, pedal edema (3-4+ up to abdomen), warm, radial pulses palpable and symmetrical. Absent: calf tenderness, joint swelling, tenderness - Back Exam Back exam: Absent: CVA tenderness (L), CVA tenderness (R) - Neurological Exam Neurological exam: Present: alert, CN II-XII intact, oriented X3, strengths equal and symetr throughout (genaralized weakness but moves all four extremities ) - Psychiatric Psychiatric exam: Present: flat affect - Skin Skin exam: Present: dry, intact, warm
[2018-02-03 04:19] LABS: Basophils # 0.2 K/mcL (0.0-0.2); Basophils % 1.7 %; Eosinophils # 0.5 K/mcL (0.0-0.6); Eosinophils % 3.7 %; Hematocrit 33.8 % (37.5-50.1); Hemoglobin 10.7 g/dL (12.9-16.9); Immature Granulocytes % 0.5 % (0-4); Lymphocytes # 0.5 K/mcL (0.6-4.6); Lymphocytes % 3.8 %; Mean Corpuscular HGB Conc 31.7 g/dL (31.6-35.5); Mean Corpuscular Hemoglobin 30.1 pg (28.0-33.3); Mean Corpuscular Volume 95.2 fL (83.0-100.0); Mean Platelet Volume 11.5 fL (9.4-12.4); Monocytes # 2.2 K/mcL (0.0-1.3); Monocytes % 17.4 %; Neutrophils # 9.3 K/mcL (1.6-8.9); Nucleated Red Blood Cells 0.2 /100 WBC (0); Platelet Count 436 K/mcL (140-400); Red Blood Count 3.55 M/mcL (4.19-5.50); Red Cell Distribution Width 20.1 % (11.5-14.5); Segmented Neutrophils % 72.9 %
[2018-02-03 05:38] LABS: Activated Partial Thrombo Time 37.4 Seconds (26.0-36.0); INR 2.2; Prothrombin Time 24.3 Seconds (9.4-12.1)
[2018-02-03] MEDS: *HR* Heparin 5,000 UNIT/ML VIAL SQ SCH ×2 (06:31→20:31)
[2018-02-03 06:44] LABS: Albumin 2.7 g/dL (3.5-5.7); Albumin/Globulin Ratio 1.1 (1.1-2.2); Bilirubin,Total 0.6 mg/dL (0.3-1.0); Calcium 8.8 mg/dL (8.6-10.3); Globulin 2.5 g/dL (2.4-3.5); Potassium 4.7 mEq/L (3.5-5.1); Total Protein 5.2 g/dL (6.4-8.9)
[2018-02-03] MEDS ORDERED: D5% in 0.9% NACL 1,000 ML IVC SCH (06:45)
[2018-02-03] MEDS ORDERED: Furosemide 40 MG/4 ML VIAL IVP ONE (08:42)
--- NOTE | 2018-02-03 08:49 | Internal Med Progress Note ---
Date of Encounter: 02/03/18 Time of Encounter: 08:45 - Assessment and plan (1) Diastolic CHF, acute on chronic Current Visit: Yes Status: Acute Assessment and plan: Started him on Lasix 40mg IV BID Reviewed 2 D Echo from 11/11 showed LVEF 55%, Mild diastolic dysfunction resumed other home meds Nephro consulted for possible HD today Pt is high risk for respiratory failure, need close monitoring.. Will switch him to full admission. I did reviewed Dr. Villa's H & P including HPI, PMH, PSH, FH, SH and ROS, no changes noticed (2) Volume overload Current Visit: Yes Status: Acute Qualifiers: Qualified Code(s): E87.70 - Fluid overload, unspecified (3) Acute on chronic respiratory failure with hypoxia Current Visit: Yes Status: Acute Assessment and plan: Due to pulmonary edema / pleural effusion IV diuresis HD as per Nephro Duoneb Chest PT Pulm consulted for possible thoracocentesis (4) COPD exacerbation Current Visit: Yes Status: Acute Assessment and plan: No need of steroids at this point cont Duoneb as GAIL + O2 for now (5) Pulmonary edema Current Visit: Yes Status: Acute Assessment and plan: Due to volume overload / CHF exacerbation Qualifiers: Chronicity: acute Qualified Code(s): J81.0 - Acute pulmonary edema (6) Pleural effusion due to congestive heart failure Current Visit: Yes Status: Acute (7) C. difficile colitis Current Visit: Yes Status: Acute Assessment and plan: recent cont home PO Vanco + Flagyl (8) ESRD (end stage renal disease) on dialysis Current Visit: No Status: Chronic (9) Atrial fibrillation Current Visit: No Status: Chronic Assessment and plan: rate controlled on Coumadin for anti coag held Coumadin now due to possible thoracocentesis in AM Qualifiers: Atrial fibrillation type: chronic Qualified Code(s): I48.2 - Chronic atrial fibrillation - Subjective Interval history: Mr. Yang is a 77 year old male with known PMH of arthritis, atrial fibrillation, diastolic CHF, dialysis on HD M/W/F, GERD, hyperlipidemia, osteoporosis, COPD chronic home O2 dependent pt presented to [facility] with Shortness of breath, volume overload. He also has recently diagnosed C. Diff colitis. He denied any CP now. He still has SOB / AVALOS, junky breath sounds.. Denied any expectoration with cough. This morning he required O2 at 4 lit. - Constitutional Vitals: Temp Pulse Resp BP Pulse Ox 97.4 F L 104 17 127/78 96 02/03/18 07:19 02/03/18 07:19 02/03/18 07:19 02/03/18 07:19 02/03/18 07:19 General appearance: Present: cooperative, mild distress (respiratory ), A&O X 3 , answers questions appropriately - Head Head exam: Present: atraumatic, normal inspection - Neck Neck exam general surgery: Present: supple - Respiratory Respiratory exam: Present: decreased breath sounds, rales, respiratory distress (mild), rhonchi (+), wheezes - Cardiovascular Cardiovascular exam: Present: +S1, +S2. Absent: systolic murmur, tachycardia - GI/Abdominal GI/Abdominal exam: Present: normal bowel sounds, soft. Absent: rebound, rigid, tenderness - Extremities Exam Extremities exam: Absent: calf tenderness, pedal edema, tenderness - Back Exam Back exam: Absent: CVA tenderness (L), CVA tenderness (R) - Neurological Exam Neurological exam: Present: alert, oriented X3 - Psychiatric Psychiatric exam: Present: normal affect, normal mood Internal Medicine: Result - Labs CBC & Chem 7: 02/03/18 04:06 02/03/18 04:06 Labs: Short CBC 02/03/18 Range/Units 04:06 WBC 12.8 H (4.3-11.1) K/mcL Hgb 10.7 L (12.9-16.9) g/dL Hct 33.8 L (37.5-50.1) % Plt Count 436 H (140-400) K/mcL Neutrophils # 9.3 H (1.6-8.9) K/mcL BMP 02/03/18 04:06 Sodium 137 Potassium 4.7 Chloride 102 Carbon Dioxide 20 L BUN 37 H Creatinine 4.00 H Glucose 77 Calcium 8.8 Cardiac Enzymes 02/03/18 Range/Units 03:18 Troponin I 0.05 H* (< 0.04) ng/mL Liver Function 02/03/18 Range/Units 04:06 Total Bilirubin 0.6 (0.3-1.0) mg/dL AST 29 (13-39) Units/L ALT 25 (7-52) Units/L Alkaline Phosphatase 966 H (34-104) Units/L Albumin 2.7 L (3.5-5.7) g/dL - ABG Interpretation ABG results: PT/INR, D-dimer PT 24.3 Seconds (9.4-12.1) H D 02/03/18 04:14 - Impressions Impressions Chest X-Ray 02/03/18 01:40 IMPRESSION: Extensive bilateral airspace disease most consistent with pulmonary edema. There is a moderate to large right pleural effusion and a small left pleural effusion. D/ / Nicolás Edgar MD / Nicolás Edgar MD Interpreting Provider: Nicolás Edgar MD Consult Discharge Plan - Plan Referrals: Adolfo Tobias DO [Primary Care Provider] -
[2018-02-03] MEDS: Ipratropium/Albuterol Neb 3 ML IH SCH ×5 (08:53→23:58)
[2018-02-03] MEDS: metroNIDAZOLE 500 MG TABLET PO SCH ×3 (09:19→20:32)
[2018-02-03] MEDS: Vancomycin Oral Soln 250 MG/5 ML UDC PO SCH ×4 (10:21→20:32)
--- NOTE | 2018-02-03 11:16 | Nephrology Consult Note ---
Date of Encounter: 02/03/18 Time of Encounter: 12:00 Assessment and Plan (1) Acute on chronic respiratory failure with hypoxia Status: Acute Will proceed with urgent HD today with aggressive fluid removal, hopefully should improve respiratory status Will contact dialysis nurse on britt and give HD orders IVF not needed at this time (apparently started while hypoglycemic with D5) (2) Bilateral pleural effusion Status: Acute (3) CHF (congestive heart failure) Status: Acute Strict I/Os advised Fluid restriction advised May still need thoracentesis for mod-large pleural effusio but will defer decision to primary team Qualifiers: Qualified Code(s): I50.32 - Chronic diastolic (congestive) heart failure (4) ESRD (end stage renal disease) on dialysis Status: Chronic Plan to resume regular HD session tomorrow despite this urgent HD today but possibly shortened Resume home meds [facility] History of Present Illness - Reason for Consult Consult date: 02/03/18 end stage renal disease (with volume overload) Requesting physician: Aleksey Villa - History of Present Illness 77 y o male with PMH of ESRD on HD at [facility] who was just discharged approx. 3 days ago for c.diff, sepsis and GI bleed now returning as a transfer from [facility] where he presented with progressive SOB. Last HD was on sunday. Renal consulted for HD management and possible urgent need. Pt seen and examined with son at bedside and appears visibly dyspneic. He is able to speak but with gasps for air in between. He denies any chest pain. CXR confirms pulm edema as well as mod-large right pleural effusion. Past Med Surg Social Fam HX - Past Medical History Medical history: arthritis, atrial fibrillation, CHF, dialysis, GERD, hyperlipidemia, osteoporosis, renal disease, valvular heart disease, other Psychiatric history: no psych history - Past Surgical History Surgical History: appendectomy - Social History Smoking Status: Never smoker Smokeless Tobacco Status: No Alcohol use: none Drug use: none - Family History Mother Family Member Ethnicity: Non- Living Status: Hx Family Neurologic Disorders: Yes (Dementia) Father Living Status: Hx Family Cardiac Disorders: Yes (Heart Attack, HTN,) Medications and Allergies Finasteride [Proscar] 5 mg PO DAILY 07/26/16 [History] Metoprolol [Lopressor] 25 mg PO BID 07/26/16 [History] Vit A/C/E AC/Znox/Cupric Oxide [Eye Vitamin-Minerals Tablet] 1 tab PO BID [History] Polyvinyl Alcohol/Povidone/Pf [Refresh Classic Eye Drops] 1 drop OP BID [History] Polyethylene Glycol 3350 [MiraLAX] 17 gm PO Q48H 11/20/16 [History] Atorvastatin Calcium [Lipitor] 20 mg PO HS 12/22/16 [History] Fluticasone Propionate Nasal [Flonase] 1 spr NS DAILY PRN 05/03/17 [History] Ascorbic Acid [Vitamin C] 500 mg PO DAILY 06/29/17 [History] Montelukast [Singulair] 10 mg PO DAILY 10/29/17 [History] Oxygen 3 l NS AD 10/29/17 [History] Lactobacillus Acidophilus [Acidophilus] 100 mg PO BID 01/17/18 [History] Warfarin [Coumadin] 3 mg PO SUMOTUSA 01/17/18 [History] Albuterol Neb [AccuNeb] 1 vial IH Q4H PRN 02/03/18 [History] Amiodarone [Cordarone] 200 mg PO DAILY 02/03/18 [History] Folic Acid/Vit Bcomp,C [Renal Vitamin Tablet] 0.8 mg PO DAILY 02/03/18 [History] Furosemide [Lasix] 40 mg PO DAILY 02/03/18 [History] Lidocaine/Prilocaine CREAM [Emla] 1 gm TP MOWEFR PRN 02/03/18 [History] Loratadine [Allergy Relief] 10 mg PO DAILY 02/03/18 [History] Mirtazapine [Remeron] 15 mg PO HS 02/03/18 [History] Sevelamer [Renvela] 1,600 mg PO TIDWM 02/03/18 [History] Warfarin [Coumadin] 4 mg PO THFR 02/03/18 [History] OxyCODONE/APAP 5/325 [Percocet 5/325 MG] 1 each PO QID PRN 4 Days #12 tablet [Rx] Pantoprazole Sodium [Protonix] 40 mg PO DAILY #0 02/06/18 [Rx] Vancomycin Oral Soln [Vancocin] 250 mg PO QID 3 Days udc 02/06/18 [Rx] 3 Allergy/AdvReac Type Severity Reaction Status Date / Time Amoxicillin Allergy Swelling Verified 02/03/18 14:35 of Lip/Tongue/Throat Penicillins [PCN] Allergy Anaphylaxis Verified 02/03/18 14:35 venom-honey bee Allergy Anaphylaxis Verified 02/03/18 14:35 [bee venom (honey bee)] Review of Systems All Systems: reviewed and no additional remarkable complaints except as stated ( 10 systems reviewed with pertinent positives noted in HPI) Exam - Vital Signs Vital signs: Initial Vital Signs Temp Pulse Resp BP Pulse Ox 96.6 F L 78 16 122/64 96 02/03/18 00:48 02/03/18 00:48 02/03/18 00:48 02/03/18 00:48 02/03/18 00:48 Vital Signs - Last 8 Hours Temp Pulse Resp BP Pulse Ox 02/03/18 09:00 18 96 02/03/18 07:19 97.4 F L 104 17 127/78 96 Intake and Output 02/02/18 02/03/18 02/03/18 22:59 07:59 15:59 Intake Total 50 / 50 Balance 50 / 50 Intake: Oral 50 / 50 Other: Meal Breakfast Percent of Meal Consumed 5% Weight Blood Glucose* 176 Patient Weight 02/04/18 00:59 Weight 60.1 kg - General Appearance General appearance: chronically ill, frail EENT: ATNC, mucous membranes moist Neck: no JVD, supple Additional Comments: Decreased BS bases bilat R>L and rales noted Cardiology: edema (LE bilat), normal S1, normal S2 - Dialysis Access Dialysis Vascular Access: Arteriovenous Fistula thrill: Yes bruit: Yes Gastrointestinal: no tenderness, no guarding Integumentary: warm and dry Neurologic: no focal deficit Musculoskeletal: no deformities Psychiatric: mood/affect appropriate, cooperative Results - Lab Results 02/06/18 04:28 02/06/18 04:28 Most recent lab results Calcium 8.8 mg/dL (8.6-10.3) 02/03/18 04:06 Magnesium 2.2 mg/dL (1.6-2.6) 02/03/18 04:06 Consult Discharge Plan - Plan Referrals: Adolfo Tobias DO [Primary Care Provider] - (Patient will follow up with ECF PCP) Prescriptions: OxyCODONE/APAP 5/325 [Percocet 5/325 MG] 1 each PO QID PRN 4 Days #12 tablet PRN Reason: Moderate Pain
[2018-02-03] MEDS ORDERED: 0.9 % Sodium Chloride 250 ML IVC PRN (14:30)
[2018-02-03] MEDS ORDERED: 0.9 % Sodium Chloride 1,000 ML PRIME SCH (14:30)
[2018-02-03] MEDS ORDERED: 0.9 % Sodium Chloride 1,000 ML ONE (14:52)
--- NOTE | 2018-02-03 16:15 | Pulmonology Consult Note ---
Date of Encounter: 02/03/18 Time of Encounter: 10:30 Assessment and Plan (1) Pleural effusion due to congestive heart failure Current Visit: Yes Status: Acute Patient is coming with recurrent pleural effusion the previous time he had a thoracentesis which showed transudative effusion would like to do thoracentesis since his INR 2.2 and he is also on coumadin will hold off thoracentesis today will repeat INR in the morning after vitamin K . Will do thoracentesis tomorrow , to continue current management for pulmonary edema (2) Acute on chronic respiratory failure with hypoxia Current Visit: Yes Status: Acute To wean down FIO2 as tolerated . (3) Diastolic CHF, acute on chronic Current Visit: Yes Status: Acute Treatment according to primary team , patient is getting dialysis to remove fluid for management of pulmonary edema . History of Present Illness Consult date: 02/03/18 Requesting physician: Lorna Grove Reason for consult: pleural effusion Chief complaint: Shortness of breadth History of present illness: 77 year old male with past medical history significant for CHF , ESRD with MWF dialysis developed shortness of breadth which worsened over a day that brought that patient to the ER , denies much cough and sputum production except for some cough today , has orthopnea , denies any chest pain or tightness , denies any abdominal or neuro symptoms denies any other constitutional symptoms. Pulmonary was consulted for evaluation of right sided pleural effusion , pulmonary was consulted during the last admission of Right sided pleural effusion with thoracentesis of pleural fluid confirmed this is transduate most likely due to CHF and ESRD . Past Med Surg Social Fam HX - Past Medical History Medical history: arthritis, atrial fibrillation, CHF, dialysis, GERD, hyperlipidemia, osteoporosis, renal disease, valvular heart disease, other Psychiatric history: no psych history - Past Surgical History Surgical History: appendectomy - Social History Smoking Status: Never smoker Smokeless Tobacco Status: No Alcohol use: none Drug use: none - Family History Mother Family Member Ethnicity: Non- Living Status: Hx Family Neurologic Disorders: Yes (Dementia) Father Living Status: Hx Family Cardiac Disorders: Yes (Heart Attack, HTN,) Medications and Allergies Finasteride [Proscar] 5 mg PO DAILY 07/26/16 [History] Metoprolol [Lopressor] 25 mg PO BID 07/26/16 [History] Vit A/C/E AC/Znox/Cupric Oxide [Eye Vitamin-Minerals Tablet] 1 tab PO BID [History] Polyvinyl Alcohol/Povidone/Pf [Refresh Classic Eye Drops] 1 drop OP BID [History] Polyethylene Glycol 3350 [MiraLAX] 17 gm PO Q48H 11/20/16 [History] Atorvastatin Calcium [Lipitor] 20 mg PO HS 12/22/16 [History] Fluticasone Propionate Nasal [Flonase] 1 spr NS DAILY PRN 05/03/17 [History] Mirtazapine [Remeron] 15 mg PO HS 05/03/17 [History] Pantoprazole Sodium [Protonix] 40 mg PO BID 05/03/17 [History] Ascorbic Acid [Vitamin C] 500 mg PO DAILY 06/29/17 [History] Montelukast [Singulair] 10 mg PO DAILY 10/29/17 [History] Oxygen 3 l NS AD 10/29/17 [History] Lactobacillus Acidophilus [Acidophilus] 100 mg PO BID 01/17/18 [History] Warfarin [Coumadin] 3 mg PO SUMOTUSA 01/17/18 [History] OxyCODONE/APAP 5/325 [Percocet 5/325 MG] 1 each PO QID PRN 4 Days #12 tablet 04/12 [Rx] Albuterol Neb [AccuNeb] 1 vial IH Q4H PRN 02/03/18 [History] Amiodarone [Cordarone] 200 mg PO DAILY 02/03/18 [History] Folic Acid/Vit Bcomp,C [Renal Vitamin Tablet] 0.8 mg PO DAILY 02/03/18 [History] Furosemide [Lasix] 20 mg PO DAILY 02/03/18 [History] Furosemide [Lasix] 40 mg PO DAILY 02/03/18 [History] Lidocaine/Prilocaine CREAM [Emla] 1 gm TP MOWEFR PRN 02/03/18 [History] Loratadine [Allergy Relief] 10 mg PO DAILY 02/03/18 [History] Mirtazapine [Remeron] 15 mg PO HS 02/03/18 [History] Sevelamer [Renvela] 1,600 mg PO TIDWM 02/03/18 [History] Warfarin [Coumadin] 4 mg PO THFR 02/03/18 [History] 3 Allergy/AdvReac Type Severity Reaction Status Date / Time Amoxicillin Allergy Swelling Verified 02/03/18 14:35 of Lip/Tongue/Throat Penicillins [PCN] Allergy Anaphylaxis Verified 02/03/18 14:35 venom-honey bee Allergy Anaphylaxis Verified 02/03/18 14:35 [bee venom (honey bee)] All Systems: The remainder of the systems were reviewed and are negative Physical Examination Vital Signs: Vital Signs, Last 4 Hours Temp Pulse Resp BP Pulse Ox 02/03/18 12:09 97.9 F 118 17 135/75 96 Effort: mildly labored Auscultation: bilateral: diminished breath sounds (more on the right side ) Results - Laboratory Findings CBC and BMP: 02/03/18 04:06 02/03/18 04:06 PT/INR, D-dimer PT 24.3 Seconds (9.4-12.1) H D 02/03/18 04:14 Abnormal lab findings: Abnormal lab results WBC 12.8 K/mcL (4.3-11.1) H 02/03/18 04:06 RBC 3.55 M/mcL (4.19-5.50) L 02/03/18 04:06 Hgb 10.7 g/dL (12.9-16.9) L 02/03/18 04:06 Hct 33.8 % (37.5-50.1) L 02/03/18 04:06 RDW 20.1 % (11.5-14.5) H 02/03/18 04:06 Plt Count 436 K/mcL (140-400) H 02/03/18 04:06 Neutrophils # 9.3 K/mcL (1.6-8.9) H 02/03/18 04:06 Lymphocytes # 0.5 K/mcL (0.6-4.6) L 02/03/18 04:06 Monocytes # 2.2 K/mcL (0.0-1.3) H 02/03/18 04:06 Nucleated RBCs/100 WBC 0.2 /100 WBC (0) H 02/03/18 04:06 PT 24.3 Seconds (9.4-12.1) H D 02/03/18 04:14 APTT 37.4 Seconds (26.0-36.0) H 02/03/18 04:14 Carbon Dioxide 20 mEq/L (23-29) L 02/03/18 04:06 BUN 37 mg/dL (8-23) H 02/03/18 04:06 Creatinine 4.00 mg/dL (0.70-1.30) H 02/03/18 04:06 Est GFR ( Amer) 18 (> 60) L 02/03/18 04:06 Est GFR (Non-Af Amer) 15 (> 60) L 02/03/18 04:06 Alkaline Phosphatase 966 Units/L (34-104) H 02/03/18 04:06 Troponin I 0.05 ng/mL (< 0.04) H* 02/03/18 09:05 B-Natriuretic Peptide 2534 pg/mL (Less than 100) H 02/03/18 11:13 Serum Total Protein 5.2 g/dL (6.4-8.9) L 02/03/18 04:06 Albumin 2.7 g/dL (3.5-5.7) L 02/03/18 04:06 - Clinical Findings Intake & Output: Intake & Output 02/03/18 02/03/18 02/03/18 07:59 15:59 23:59 Intake Total 50 / 50 Balance 50 / 50 Weight Consult Discharge Plan - Plan Referrals: Adolfo Tobias DO [Primary Care Provider] -
[2018-02-04 04:12] LABS: Basophils # 0.2 K/mcL (0.0-0.2); Basophils % 2.2 %; Eosinophils # 0.4 K/mcL (0.0-0.6); Eosinophils % 5.1 %; Hematocrit 30.3 % (37.5-50.1); Hemoglobin 9.8 g/dL (12.9-16.9); Immature Granulocytes % 0.4 % (0-4); Lymphocytes # 0.5 K/mcL (0.6-4.6); Lymphocytes % 5.5 %; Mean Corpuscular HGB Conc 32.3 g/dL (31.6-35.5); Mean Corpuscular Hemoglobin 29.9 pg (28.0-33.3); Mean Corpuscular Volume 92.4 fL (83.0-100.0); Mean Platelet Volume 11.2 fL (9.4-12.4); Monocytes # 1.4 K/mcL (0.0-1.3); Neutrophils # 5.9 K/mcL (1.6-8.9); Nucleated Red Blood Cells 0.2 /100 WBC (0); Platelet Count 339 K/mcL (140-400); Red Blood Count 3.28 M/mcL (4.19-5.50); Red Cell Distribution Width 19.5 % (11.5-14.5); Segmented Neutrophils % 69.8 %
[2018-02-04] MEDS: Ipratropium/Albuterol Neb 3 ML IH SCH ×6 (04:32→23:16)
[2018-02-04 04:33] LABS: Calcium 8.6 mg/dL (8.6-10.3); Potassium 3.7 mEq/L (3.5-5.1)
[2018-02-04] MEDS: *HR* Heparin 5,000 UNIT/ML VIAL SQ SCH ×2 (06:37→17:29)
[2018-02-04] MEDS ORDERED: *HR* OxyCODONE/APAP 5/325 TABLET PO PRN (07:56)
[2018-02-04] MEDS ORDERED: Albuterol Neb 0.63 MG/3 ML VIAL IH PRN (07:56)
[2018-02-04] MEDS ORDERED: Fluticasone Propionate Nasal 50 MCG/SPRAY BOTTLE NS PRN (07:56)
[2018-02-04] MEDS ORDERED: 0.9 % Sodium Chloride 250 ML IVC PRN (08:00)
[2018-02-04] MEDS ORDERED: *HR* Warfarin 3 MG TABLET PO SCH (08:00)
[2018-02-04] MEDS ORDERED: Albuterol 2.5 MG/3 ML NEBULIZER IH PRN (08:09)
[2018-02-04] MEDS: Lactobacillus 1 EACH CAP.SPRINK PO SCH ×2 (08:16→20:49)
[2018-02-04] MEDS: *HR* Amiodarone 200 MG TABLET PO SCH (08:16)
[2018-02-04] MEDS: Finasteride 5 MG TABLET PO SCH (08:16)
[2018-02-04] MEDS: Ascorbic Acid 500 MG TABLET PO SCH (08:17)
[2018-02-04] MEDS: metroNIDAZOLE 500 MG TABLET PO SCH (08:17)
[2018-02-04] MEDS: Vancomycin Oral Soln 250 MG/5 ML UDC PO SCH ×4 (08:18→20:49)
[2018-02-04] MEDS ORDERED: 0.9 % Sodium Chloride 2,000 ML ONE (08:19)
[2018-02-04] MEDS: Artificial Tears SOLN 15 ML BOTTLE OP SCH ×2 (08:27→20:50)
[2018-02-04] MEDS ORDERED: NON-FORMULARY MEDICATION 1 EACH EACH (Vit A/C/E Ac/Znox/Cupric Oxide [Eye Vitamin-Minerals PO SCH (09:00)
[2018-02-04 09:02] LABS: INR 2.2; Prothrombin Time 23.6 Seconds (9.4-12.1)
--- NOTE | 2018-02-04 09:48 | Pulmonology Progress Note ---
Date of Encounter: 02/04/18 Time of Encounter: 09:35 Assessment and Plan (1) Pulmonary edema Current Visit: Yes Status: Resolved Patient stated he is feeling significantly better after fluid removal with hemodialysis and he does not think he needs any therapeutic thoracentesis, however if his symptoms worsen and we will be happy to arrange it for him. Continue hemodialysis and fluid removal as tolerated and will follow-up when necessary please call for any questions. Qualifiers: Chronicity: acute Qualified Code(s): J81.0 - Acute pulmonary edema (2) Pleural effusion due to congestive heart failure Current Visit: Yes Status: Chronic (3) ESRD (end stage renal disease) on dialysis Current Visit: No Status: Chronic Subjective Principal diagnosis: Dyspnea Interval history: Patient feels significantly better and he thinks this was a result of hemodialysis and removing fluid Objective PUL Vital signs: Last Vital Signs Temp 98.7 F 02/04/18 06:54 Pulse 118 02/04/18 06:54 Resp 16 02/04/18 07:26 BP 107/65 02/04/18 06:54 Pulse Ox 96 02/04/18 07:26 General appearance: no acute distress Eyes: nonicteric ENT: oropharynx moist Neck: supple Effort: normal Auscultation: left: clear, right: diminished breath sounds Percussion: right: dull Cardiovascular: regular rate and rhythm Gastrointestinal: normoactive bowel sounds, non-distended Extremities: no cyanosis normal mental status, non-focal exam mood appropriate Results - Laboratory Findings CBC and BMP: 02/04/18 03:49 02/04/18 03:49 PT/INR, D-dimer PT 23.6 Seconds (9.4-12.1) H 02/04/18 08:33 Abnormal lab findings: Abnormal lab results RBC 3.28 M/mcL (4.19-5.50) L 02/04/18 03:49 Hgb 9.8 g/dL (12.9-16.9) L 02/04/18 03:49 Hct 30.3 % (37.5-50.1) L 02/04/18 03:49 RDW 19.5 % (11.5-14.5) H 02/04/18 03:49 Lymphocytes # 0.5 K/mcL (0.6-4.6) L 02/04/18 03:49 Monocytes # 1.4 K/mcL (0.0-1.3) H 02/04/18 03:49 Nucleated RBCs/100 WBC 0.2 /100 WBC (0) H 02/04/18 03:49 PT 23.6 Seconds (9.4-12.1) H 02/04/18 08:33 APTT 37.4 Seconds (26.0-36.0) H 02/03/18 04:14 Chloride 97 mEq/L (98-107) L 02/04/18 03:49 Carbon Dioxide 34 mEq/L (23-29) H 02/04/18 03:49 BUN 25 mg/dL (8-23) H 02/04/18 03:49 Creatinine 3.14 mg/dL (0.70-1.30) H 02/04/18 03:49 Est GFR ( Amer) 23 (> 60) L 02/04/18 03:49 Est GFR (Non-Af Amer) 19 (> 60) L 02/04/18 03:49 POC Glucose 96 (58-89) H 02/04/18 00:55 Alkaline Phosphatase 966 Units/L (34-104) H 02/03/18 04:06 Troponin I 0.05 ng/mL (< 0.04) H* 02/03/18 09:05 B-Natriuretic Peptide 2534 pg/mL (Less than 100) H 02/03/18 11:13 Serum Total Protein 5.2 g/dL (6.4-8.9) L 02/03/18 04:06 Albumin 2.7 g/dL (3.5-5.7) L 02/03/18 04:06 - Clinical Findings Intake & Output: Intake & Output 02/03/18 02/04/18 02/04/18 23:59 07:59 15:59 Intake Total 240 / 240 Output Total 4600 / 4600 Balance -4600 / -4600 240 / 240 Weight 58.7 kg 58.7 kg Consult Discharge Plan - Plan Referrals: Adolfo Tobias DO [Primary Care Provider] - (Patient will follow up with ECF PCP)
[2018-02-04] MEDS: Folic Acid 1 MG TABLET PO SCH (12:43)
[2018-02-04] MEDS: Vitamin B Complex/Vit C/Vit E 1 EACH TABLET PO SCH (12:43)
--- NOTE | 2018-02-04 14:11 | Internal Med Progress Note ---
Date of Encounter: 02/04/18 Time of Encounter: 13:50 - Assessment and plan (1) Diastolic CHF, acute on chronic Current Visit: Yes Status: Acute Assessment and plan: s/p HD today Feeling better Reviewed 2 D Echo from 11/11 showed LVEF 55%, Mild diastolic dysfunction resumed other home meds (2) Volume overload Current Visit: Yes Status: Acute Assessment and plan: HD as per Nephro Qualifiers: Qualified Code(s): E87.70 - Fluid overload, unspecified (3) Acute on chronic respiratory failure with hypoxia Current Visit: Yes Status: Acute Assessment and plan: Due to pulmonary edema / pleural effusion HD as per Nephro Duoneb Chest PT His symptoms improved significantly after HD, Pulmonary is going to hold on thoracocentesis for now continue holding Coumadin for now (4) COPD exacerbation Current Visit: Yes Status: Acute Assessment and plan: No need of steroids at this point cont Duoneb as GAIL + O2 for now (5) Pulmonary edema Current Visit: Yes Status: Resolved Assessment and plan: Due to volume overload / CHF exacerbation improving Qualifiers: Chronicity: acute Qualified Code(s): J81.0 - Acute pulmonary edema (6) Pleural effusion due to congestive heart failure Current Visit: Yes Status: Chronic (7) C. difficile colitis Current Visit: Yes Status: Acute Assessment and plan: Improved No diarrhea cont home PO Vanco (8) ESRD (end stage renal disease) on dialysis Current Visit: No Status: Chronic (9) Atrial fibrillation Current Visit: No Status: Chronic Assessment and plan: rate controlled on Coumadin for anti coag continue holding Coumadin if patient needs any procedures Qualifiers: Atrial fibrillation type: chronic Qualified Code(s): I48.2 - Chronic atrial fibrillation - Subjective Interval history: Mr. Yang is a 77 year old male with known PMH of arthritis, atrial fibrillation, diastolic CHF, dialysis on HD M/W/, GERD, hyperlipidemia, osteoporosis, COPD chronic home O2 dependent pt presented to [facility] with Shortness of breath, volume overload. He also has recently diagnosed C. Diff colitis. He denied any CP now. His SOB and AVALOS albaro better today. Currently on 2 lit O2 . No events over night. Denied any diarrhea - Constitutional Vitals: Temp Pulse Resp BP Pulse Ox 97.1 F L 118 18 99/58 96 02/04/18 11:30 02/04/18 06:54 02/04/18 11:30 02/04/18 11:30 02/04/18 07:26 General appearance: Present: cooperative, A&O X 3, answers questions appropriately - Head Head exam: Present: atraumatic, normal inspection - Neck Neck exam general surgery: Present: supple - Respiratory Respiratory exam: Present: decreased breath sounds, wheezes (mild). Absent: rales, respiratory distress, rhonchi - Cardiovascular Cardiovascular exam: Present: RRR, +S1, +S2. Absent: tachycardia - GI/Abdominal GI/Abdominal exam: Present: normal bowel sounds, soft. Absent: rebound, rigid, tenderness - Extremities Exam Extremities exam: Present: pedal edema. Absent: calf tenderness, tenderness - Back Exam Back exam: Absent: CVA tenderness (L), CVA tenderness (R) - Neurological Exam Neurological exam: Present: alert, oriented X3 - Psychiatric Psychiatric exam: Present: normal affect, normal mood Internal Medicine: Result - Labs CBC & Chem 7: 02/04/18 03:49 02/04/18 03:49 Labs: Short CBC 02/04/18 Range/Units 03:49 WBC 8.5 (4.3-11.1) K/mcL Hgb 9.8 L (12.9-16.9) g/dL Hct 30.3 L (37.5-50.1) % Plt Count 339 (140-400) K/mcL Neutrophils # 5.9 (1.6-8.9) K/mcL BMP 02/04/18 03:49 Sodium 138 Potassium 3.7 Chloride 97 L Carbon Dioxide 34 H BUN 25 H Creatinine 3.14 H Glucose 78 Calcium 8.6 - ABG Interpretation ABG results: PT/INR, D-dimer PT 23.6 Seconds (9.4-12.1) H 02/04/18 08:33 Consult Discharge Plan - Plan Referrals: Adolfo Tobias DO [Primary Care Provider] - (Patient will follow up with ECF PCP)
[2018-02-04] MEDS ORDERED: Warfarin perPT PO PRN (18:00)
--- NOTE | 2018-02-04 18:31 | Nephrology Progress Note ---
Date of Encounter: 02/04/18 Time of Encounter: 11:00 - Assessment and Plan (1) ESRD (end stage renal disease) on dialysis Status: Chronic Continue HD today with UF as tolerated Lytes WNL Continue renal diet (2) Pleural effusion due to congestive heart failure Status: Chronic Per primary team (3) CHF exacerbation Status: Acute Fluid restriction advised Strict I/Os Qualifiers: Heart failure type: unspecified Qualified Code(s): I50.9 - Heart failure, unspecified Subjective Principal diagnosis: Dyspnea Interval history: Pt seen and examined on HD feeling better with less SOB after an urgent HD yesterday Objective - Vital Signs Vital signs: Vital Signs Temp Pulse Resp BP Pulse Ox 02/04/18 15:46 16 96 02/04/18 15:21 98.9 F 118 14 111/61 96 02/04/18 11:30 97.1 F L 18 99/58 02/04/18 11:00 95/50 02/04/18 10:45 104/54 02/04/18 10:30 97/49 02/04/18 10:15 101/50 02/04/18 10:00 101/56 02/04/18 09:45 97/53 02/04/18 09:30 98/57 02/04/18 09:15 94/56 02/04/18 09:00 97.2 F L 18 92/58 02/04/18 07:26 16 96 02/04/18 06:54 98.7 F 118 14 107/65 96 02/04/18 04:36 98.0 F 114 16 100/61 99 02/04/18 04:32 16 94 02/04/18 00:50 98.9 F 124 16 103/56 96 02/03/18 22:58 17 89 02/03/18 20:00 18 84 02/03/18 19:24 97.6 F 16 105/62 02/03/18 18:46 97.2 F L 16 108/64 02/03/18 18:30 103/62 Intake and Output 02/04/18 02/04/18 02/04/18 07:59 15:59 23:59 Intake Total 1080 / 1080 Output Total 2600 / 2600 Balance -1520 / -1520 Intake: Oral 480 / 480 Intake, Rinseback and Flushes 600 / 600 Output: Urine 0 / 0 Total Dialysis (HD) Output 2600 / 2600 Other: Meal Lunch Percent of Meal Consumed 75% Weight 58.7 kg 58.7 kg Blood Glucose* 75 104 Hemodialysis Net Fluid Removed 2000 (mL) Patient Weight 02/04/18 23:59 Weight 58.7 kg - General Appearance General appearance: Present: chronically ill, frail EENT: Present: ATNC, mucous membranes moist Neck: Present: no JVD, supple Additional Comments: improved areation ant bilat Cardiology: Present: edema (improving), normal S1, normal S2 Dialysis Vascular Access: Arteriovenous Fistula thrill: Yes bruit: Yes Gastrointestinal: Present: no tenderness, no guarding Integumentary: Present: warm and dry Neurologic: Present: no focal deficit Musculoskeletal: Present: no deformities Psychiatric: Present: mood/affect appropriate - Lab 02/06/18 04:28 02/06/18 04:28 Most recent lab results Calcium 8.6 mg/dL (8.6-10.3) 02/04/18 03:49 Magnesium 2.2 mg/dL (1.6-2.6) 02/03/18 04:06 Consult Discharge Plan - Plan Referrals: Adolfo Tobias DO [Primary Care Provider] - (Patient will follow up with ECF PCP) Prescriptions: OxyCODONE/APAP 5/325 [Percocet 5/325 MG] 1 each PO QID PRN 4 Days #12 tablet PRN Reason: Moderate Pain
[2018-02-04] MEDS ORDERED: Ondansetron 4 MG/2 ML VIAL IVP PRN (19:22)
--- NOTE | 2018-02-04 19:54 | Electrocardiograph Report ---
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
[2018-02-04] MEDS: Mirtazapine 15 MG TABLET PO SCH (20:49)
[2018-02-04] MEDS ORDERED: Mirtazapine 15 MG TABLET PO SCH (21:00)
[2018-02-05] MEDS: Ipratropium/Albuterol Neb 3 ML IH SCH ×5 (03:43→19:56)
[2018-02-05] MEDS: *HR* Heparin 5,000 UNIT/ML VIAL SQ SCH ×2 (04:53→17:28)
[2018-02-05 06:37] LABS: Basophils # 0.2 K/mcL (0.0-0.2); Basophils % 2.6 %; Eosinophils # 0.8 K/mcL (0.0-0.6); Eosinophils % 8.7 %; Hematocrit 30.3 % (37.5-50.1); Hemoglobin 9.6 g/dL (12.9-16.9); Immature Granulocytes % 0.2 % (0-4); Lymphocytes # 0.5 K/mcL (0.6-4.6); Mean Corpuscular HGB Conc 31.7 g/dL (31.6-35.5); Mean Corpuscular Hemoglobin 29.6 pg (28.0-33.3); Mean Corpuscular Volume 93.5 fL (83.0-100.0); Mean Platelet Volume 11.6 fL (9.4-12.4); Monocytes # 1.8 K/mcL (0.0-1.3); Monocytes % 19.6 %; Nucleated Red Blood Cells 0.3 /100 WBC (0); Platelet Count 357 K/mcL (140-400); Red Blood Count 3.24 M/mcL (4.19-5.50); Red Cell Distribution Width 19.6 % (11.5-14.5); Segmented Neutrophils % 63.9 %
[2018-02-05 06:40] LABS: INR 1.8; Prothrombin Time 19.7 Seconds (9.4-12.1)
[2018-02-05 06:47] LABS: Neutrophils # 5.8 K/mcL (1.6-8.9)
[2018-02-05 06:50] LABS: Calcium 8.5 mg/dL (8.6-10.3); Potassium 4.1 mEq/L (3.5-5.1)
[2018-02-05 07:22] LABS: Platelet Estimate Normal (Normal)
[2018-02-05] MEDS: Lactobacillus 1 EACH CAP.SPRINK PO SCH ×2 (08:04→20:43)
[2018-02-05] MEDS: Folic Acid 1 MG TABLET PO SCH (08:05)
[2018-02-05] MEDS: Finasteride 5 MG TABLET PO SCH (08:05)
[2018-02-05] MEDS: Vitamin B Complex/Vit C/Vit E 1 EACH TABLET PO SCH (08:05)
[2018-02-05] MEDS: Ascorbic Acid 500 MG TABLET PO SCH (08:05)
[2018-02-05] MEDS: Vancomycin Oral Soln 250 MG/5 ML UDC PO SCH ×4 (08:06→20:43)
[2018-02-05] MEDS: Artificial Tears SOLN 15 ML BOTTLE OP SCH ×2 (08:06→20:42)
[2018-02-05] MEDS: *HR* Amiodarone 200 MG TABLET PO SCH (08:07)
--- NOTE | 2018-02-05 11:36 | Nephrology Progress Note ---
<Reyna Terrell Smita - Last Filed: 02/05/18 11:57> Date of Encounter: 02/05/18 Time of Encounter: 11:35 - Assessment and Plan (1) ESRD (end stage renal disease) on dialysis Status: Chronic No UF indicated today Plan for HD tomorrow Continue renal diet Avoid nephrotoxins if possible (2) Pleural effusion due to congestive heart failure Status: Chronic Chest xray this morning shows: 1. Moderate to large right and small left pleural effusions. 2. Right greater than left basilar opacities compatible atelectasis and/or infiltrates. 3. Cardiomegaly and pulmonary edema compatible with CHF. per pulmonary team (3) CHF exacerbation Status: Acute per primary team Qualifiers: Heart failure type: unspecified Qualified Code(s): I50.9 - Heart failure, unspecified Subjective Principal diagnosis: Dyspnea Interval history: Patient seen and examined. States he is not feeling well; c/o being weak and tired Objective - Vital Signs Vital signs: Vital Signs Temp Pulse Resp BP Pulse Ox 02/05/18 07:28 18 96 02/05/18 07:18 98.1 F 108 18 119/70 96 02/05/18 04:53 98.1 F 107 16 104/61 95 02/05/18 03:43 17 96 02/04/18 23:39 98.2 F 105 18 118/62 98 02/04/18 20:10 16 98 02/04/18 19:32 98.1 F 112 16 112/64 96 02/04/18 15:46 16 96 02/04/18 15:21 98.9 F 118 14 111/61 96 Intake and Output 02/04/18 02/05/18 02/05/18 23:59 07:59 15:59 Intake Total 120 / 120 120 / 120 Output Total 0 / 0 Balance 120 / 120 120 / 120 Intake: Oral 120 / 120 120 / 120 Output: Urine 0 / 0 Other: # Urine Diapers 1 Weight 59.4 kg Blood Glucose* 114 76 Patient Weight 02/05/18 23:59 Weight 59.4 kg - General Appearance General appearance: Present: chronically ill, frail EENT: Present: ATNC, mucous membranes moist, hearing intact, vision intact Neck: Present: supple Respiratory: Present: clear (decreased) Cardiology: Present: no edema, normal S1, normal S2 Dialysis Vascular Access: Arteriovenous Fistula Gastrointestinal: Present: no tenderness, no guarding Integumentary: Present: warm and dry Neurologic: Present: alert and oriented x3 Psychiatric: Present: mood/affect appropriate, cooperative - Lab 02/05/18 05:30 02/05/18 05:30 Most recent lab results Calcium 8.5 mg/dL (8.6-10.3) L 02/05/18 05:30 Magnesium 2.2 mg/dL (1.6-2.6) 02/03/18 04:06 Consult Discharge Plan - Plan Referrals: Adolfo Tobias DO [Primary Care Provider] - (Patient will follow up with ECF PCP) <Frandy Almeida - Last Filed: 02/28/18 19:29> Date of Encounter: 02/05/18 - Assessment and Plan (1) ESRD (end stage renal disease) on dialysis Status: Chronic (2) Pleural effusion due to congestive heart failure Status: Chronic (3) CHF exacerbation Status: Acute Qualifiers: Heart failure type: diastolic Qualified Code(s): I50.33 - Acute on chronic diastolic (congestive) heart failure Objective - Lab 02/06/18 04:28 02/06/18 04:28 Most recent lab results Calcium 8.7 mg/dL (8.6-10.3) 02/06/18 04:28 Magnesium 2.2 mg/dL (1.6-2.6) 02/03/18 04:06 - Attending Attestation I examined this patient and my medical decision-making was reviewed with the Resident Physician/RETORT FIREMAN. I agree with the documented findings, disposition and treatment plan as described except to the extent set forth below. Pt seen and examined still does not feel great but breathing seems a little better. Will hold off on UF today but ly HD tomorrow. Pulm and primary team to address pulm issues including pleural effusion as needed
--- NOTE | 2018-02-05 14:09 | Internal Med Progress Note ---
Date of Encounter: 02/05/18 Time of Encounter: 10:45 - Assessment and plan (1) Acute on chronic respiratory failure with hypoxia Current Visit: Yes Status: Acute Assessment and plan: Due to pulmonary edema / pleural effusion HD as per Nephro Duoneb Chest PT His symptoms improved significantly after HD, Spoke to Dr. Sena did not recommend thoracocentesis for now Cleared him to resume his Coumadin Dispo : Possible d/c back to SNF in AM (2) Diastolic CHF, acute on chronic Current Visit: Yes Status: Acute Assessment and plan: Improved feels back to baseline Reviewed 2 D Echo from 11/11 showed LVEF 55%, Mild diastolic dysfunction (3) Pleural effusion due to congestive heart failure Current Visit: Yes Status: Chronic (4) C. difficile colitis Current Visit: Yes Status: Acute (5) COPD exacerbation Current Visit: Yes Status: Acute (6) Volume overload Current Visit: Yes Status: Acute Assessment and plan: HD as per Nephro Qualifiers: Qualified Code(s): E87.70 - Fluid overload, unspecified (7) Pulmonary edema Current Visit: Yes Status: Resolved Assessment and plan: Due to volume overload / CHF exacerbation improving Qualifiers: Chronicity: acute Qualified Code(s): J81.0 - Acute pulmonary edema (8) ESRD (end stage renal disease) on dialysis Current Visit: No Status: Chronic Assessment and plan: HD as per Nephro - Subjective Interval history: Mr. Yang is a 77 year old male with known PMH of arthritis, atrial fibrillation, diastolic CHF, dialysis on HD M/W/F, GERD, hyperlipidemia, osteoporosis, COPD chronic home O2 dependent pt presented to [facility] ER with Shortness of breath, volume overload. He also has recently diagnosed C. Diff colitis. He denied any CP now. His SOB and AVALOS albaro better today. Currently on 2 lit O2 . No events over night. Denied any diarrhea. - Constitutional Vitals: Temp Pulse Resp BP Pulse Ox 97.7 F 121 16 126/74 93 02/05/18 12:05 02/05/18 12:05 02/05/18 12:05 02/05/18 12:05 02/05/18 12:05 General appearance: Present: cooperative, A&O X 3, answers questions appropriately - Head Head exam: Present: atraumatic, normal inspection - Neck Neck exam general surgery: Present: supple - Respiratory Respiratory exam: Present: decreased breath sounds, rales (mild), wheezes (mild) . Absent: respiratory distress, rhonchi - Cardiovascular Cardiovascular exam: Present: irregular rhythm, +S1, +S2. Absent: systolic murmur, tachycardia - GI/Abdominal GI/Abdominal exam: Present: normal bowel sounds, soft. Absent: rebound, rigid, tenderness - Extremities Exam Extremities exam: Present: pedal edema (1+ b/l). Absent: calf tenderness, tenderness - Back Exam Back exam: Absent: CVA tenderness (L), CVA tenderness (R) - Neurological Exam Neurological exam: Present: alert, oriented X3 - Psychiatric Psychiatric exam: Present: normal affect, normal mood Internal Medicine: Result - Labs CBC & Chem 7: 02/05/18 05:30 02/05/18 05:30 Labs: Short CBC 02/05/18 Range/Units 05:30 WBC 9.0 (4.3-11.1) K/mcL Hgb 9.6 L (12.9-16.9) g/dL Hct 30.3 L (37.5-50.1) % Plt Count 357 (140-400) K/mcL Neutrophils # 5.8 (1.6-8.9) K/mcL BMP 02/05/18 05:30 Sodium 138 Potassium 4.1 Chloride 98 Carbon Dioxide 33 H BUN 30 H Creatinine 2.87 H Glucose 80 Calcium 8.5 L - ABG Interpretation ABG results: PT/INR, D-dimer PT 19.7 Seconds (9.4-12.1) H 02/05/18 05:30 - Impressions Impressions Chest X-Ray 02/05/18 10:36 IMPRESSION: 1. Moderate to large right and small left pleural effusions. 2. Right greater than left basilar opacities compatible atelectasis and/or infiltrates. 3. Cardiomegaly and pulmonary edema compatible with CHF. D/ / Rebeca Mckeon MD / Rebeca Mckeon MD Interpreting Provider: Rebeca Mckeon MD Consult Discharge Plan - Plan Referrals: Adolfo Tobias DO [Primary Care Provider] - (Patient will follow up with ECF PCP)
[2018-02-05] MEDS ORDERED: *HR* Warfarin 3 MG TABLET PO ONE (18:00)
[2018-02-05] MEDS ORDERED: Warfarin perPT PO SCH (18:00)
[2018-02-05] MEDS: Mirtazapine 15 MG TABLET PO SCH (20:42)
[2018-02-06] MEDS: Ipratropium/Albuterol Neb 3 ML IH SCH ×4 (00:38→11:01)
[2018-02-06 05:21] LABS: Basophils # 0.2 K/mcL (0.0-0.2); Basophils % 1.7 %; Eosinophils # 0.7 K/mcL (0.0-0.6); Hematocrit 30.2 % (37.5-50.1); Hemoglobin 9.7 g/dL (12.9-16.9); Immature Granulocytes % 0.3 % (0-4); Lymphocytes # 0.5 K/mcL (0.6-4.6); Mean Corpuscular HGB Conc 32.1 g/dL (31.6-35.5); Mean Corpuscular Hemoglobin 29.9 pg (28.0-33.3); Mean Corpuscular Volume 93.2 fL (83.0-100.0); Mean Platelet Volume 11.5 fL (9.4-12.4); Monocytes # 1.8 K/mcL (0.0-1.3); Monocytes % 17.8 %; Neutrophils # 6.8 K/mcL (1.6-8.9); Nucleated Red Blood Cells 0.3 /100 WBC (0); Platelet Count 373 K/mcL (140-400); Red Blood Count 3.24 M/mcL (4.19-5.50); Red Cell Distribution Width 19.2 % (11.5-14.5); Segmented Neutrophils % 68.2 %
[2018-02-06 05:29] LABS: INR 1.5; Prothrombin Time 16.2 Seconds (9.4-12.1)
[2018-02-06 05:42] LABS: Calcium 8.7 mg/dL (8.6-10.3); Potassium 4.7 mEq/L (3.5-5.1)
[2018-02-06] MEDS: *HR* Heparin 5,000 UNIT/ML VIAL SQ SCH (06:05)
[2018-02-06] MEDS ORDERED: 0.9 % Sodium Chloride 250 ML IVC PRN (07:20)
[2018-02-06] MEDS ORDERED: 0.9 % Sodium Chloride 1,000 ML PRIME SCH (07:30)
[2018-02-06] MEDS: Artificial Tears SOLN 15 ML BOTTLE OP SCH (07:50)
[2018-02-06] MEDS: Vitamin B Complex/Vit C/Vit E 1 EACH TABLET PO SCH (07:51)
[2018-02-06] MEDS: Lactobacillus 1 EACH CAP.SPRINK PO SCH (07:51)
[2018-02-06] MEDS: Folic Acid 1 MG TABLET PO SCH (07:51)
[2018-02-06] MEDS: Ascorbic Acid 500 MG TABLET PO SCH (07:51)
[2018-02-06] MEDS: *HR* Amiodarone 200 MG TABLET PO SCH (07:51)
[2018-02-06] MEDS: Finasteride 5 MG TABLET PO SCH (07:51)
[2018-02-06] MEDS: Vancomycin Oral Soln 250 MG/5 ML UDC PO SCH ×3 (07:52→16:04)
[2018-02-06] MEDS ORDERED: 0.9 % Sodium Chloride 1,000 ML ONE (08:02)
[2018-02-06 12:09] VITALS: BP 121/70
--- NOTE | 2018-02-06 13:58 | Discharge Summary ---
- NOTES TO OUTPATIENT PROVIDER Notes to Outpatient Provider: Go for HD as scheduled before M/W/. Continue taking Vanco PO for 3 more days for your C. Diff infection. If your shortness of breath worsens please come back to ER Orders not resulted at time of discharge: Pending orders 02/07/18 04:00 PT/INR [Prothrombin Time INR] [COAG] AM 0400 02/08/18 04:00 PT/INR [Prothrombin Time INR] [COAG] AM 0400 02/09/18 04:00 PT/INR [Prothrombin Time INR] [COAG] AM 0400 Date of Encounter: 02/06/18 Time of Encounter: 13:53 - Discharge Diagnosis (1) Acute on chronic respiratory failure with hypoxia Priority: Primary Status: Acute (2) Diastolic CHF, acute on chronic Priority: Primary Status: Acute (3) Pleural effusion due to congestive heart failure Priority: Primary Status: Chronic (4) C. difficile colitis Priority: Secondary Status: Acute (5) COPD exacerbation Priority: Secondary Status: Acute (6) Volume overload Priority: Secondary Status: Acute Qualifiers: Qualified Code(s): E87.70 - Fluid overload, unspecified (7) Pulmonary edema Priority: Secondary Status: Resolved Qualifiers: Chronicity: acute Qualified Code(s): J81.0 - Acute pulmonary edema (8) ESRD (end stage renal disease) on dialysis Priority: Secondary Status: Chronic Hospital course: Mr. Yang is a 77 year old male with known PMH of arthritis, atrial fibrillation, diastolic CHF, dialysis on HD M//, GERD, hyperlipidemia, osteoporosis, COPD chronic home O2 dependent pt presented to [facility] ER with Shortness of breath, volume overload. He also has recently diagnosed C. Diff colitis. Pt was admitted in the hospital and started him on symptomatic and supportive care with the Duonebs scheduled. Initially patient was required 4 lit oxygen. He did go for urgent hemodialysis which improved his breathing. His CXR showed Rt side large pleural effusion, so consulted Pulm who evaluated the pt and recommend to monitor closely for now. Since his symptoms improved with HD, Pulm do no suggested throacocentesis for now. His diarrhea resolved, for his recent C. Diff infection we continue his PO Vancomycin, recommend to continue it at SNF 3 more days for total 2 weeks course. Pt is d/c back to ECF today in stable condition. - Time Spent with Patient Total time spent providing and/or coordinating discharge services: - Discharge Medications Prescriptions: OxyCODONE/APAP 5/325 [Percocet 5/325 MG] 1 each PO QID PRN 4 Days #12 tablet PRN Reason: Moderate Pain Home Medications: Finasteride [Proscar] 5 mg PO DAILY 07/26/16 [History] Metoprolol [Lopressor] 25 mg PO BID 07/26/16 [History] Vit A/C/E AC/Znox/Cupric Oxide [Eye Vitamin-Minerals Tablet] 1 tab PO BID [History] Polyvinyl Alcohol/Povidone/Pf [Refresh Classic Eye Drops] 1 drop OP BID [History] Polyethylene Glycol 3350 [MiraLAX] 17 gm PO Q48H 11/20/16 [History] Atorvastatin Calcium [Lipitor] 20 mg PO HS 12/22/16 [History] Fluticasone Propionate Nasal [Flonase] 1 spr NS DAILY PRN 05/03/17 [History] Ascorbic Acid [Vitamin C] 500 mg PO DAILY 06/29/17 [History] Montelukast [Singulair] 10 mg PO DAILY 10/29/17 [History] Oxygen 3 l NS AD 10/29/17 [History] Lactobacillus Acidophilus [Acidophilus] 100 mg PO BID 01/17/18 [History] Warfarin [Coumadin] 3 mg PO SUMOTUSA 01/17/18 [History] Albuterol Neb [AccuNeb] 1 vial IH Q4H PRN 02/03/18 [History] Amiodarone [Cordarone] 200 mg PO DAILY 02/03/18 [History] Folic Acid/Vit Bcomp,C [Renal Vitamin Tablet] 0.8 mg PO DAILY 02/03/18 [History] Furosemide [Lasix] 40 mg PO DAILY 02/03/18 [History] Lidocaine/Prilocaine CREAM [Emla] 1 gm TP MOWEFR PRN 02/03/18 [History] Loratadine [Allergy Relief] 10 mg PO DAILY 02/03/18 [History] Mirtazapine [Remeron] 15 mg PO HS 02/03/18 [History] Sevelamer [Renvela] 1,600 mg PO TIDWM 02/03/18 [History] Warfarin [Coumadin] 4 mg PO THFR 02/03/18 [History] OxyCODONE/APAP 5/325 [Percocet 5/325 MG] 1 each PO QID PRN 4 Days #12 tablet [Rx] Pantoprazole Sodium [Protonix] 40 mg PO DAILY #0 02/06/18 [Rx] Vancomycin Oral Soln [Vancocin] 250 mg PO QID 3 Days udc 02/06/18 [Rx] Allergies/Adverse Reactions: 3 Allergy/AdvReac Type Severity Reaction Status Date / Time Amoxicillin Allergy Swelling Verified 02/03/18 14:35 of Lip/Tongue/Throat Penicillins [PCN] Allergy Anaphylaxis Verified 02/03/18 14:35 venom-honey bee Allergy Anaphylaxis Verified 02/03/18 14:35 [bee venom (honey bee)] Date of admission: 02/05/18 08:43 Primary care physician: Adolfo Tobias DO Consults: 02/03/18 01:43 Consult to Physician [CONS] Routine Consulting Provider: Frandy Almeida Reason for Consult: ESRD w CHF Call Completed: No 02/03/18 14:30 Consult to Dialysis [CONS] ONCE 02/03/18 16:02 Consult to Pulmonology [CONS] Routine Consulting Provider: Pulm [facility] Moni Reason for Consult: dyspnea Call Completed: Yes 02/04/18 08:00 Consult to Dialysis [CONS] ONCE 02/04/18 08:26 Consult to Nurse Navigator [CONS] Routine Comment: CHF 02/04/18 14:30 Consult to Dialysis [CONS] ONCE 02/05/18 07:52 Consult to Atv Mechanic [CONS] Routine Reason for SW Consult: rtn bert dover 02/05/18 08:00 Consult to Dialysis [CONS] ONCE 02/06/18 07:30 Consult to Dialysis [CONS] ONCE - Constitutional Vitals: Temp Pulse Resp BP Pulse Ox 97.2 F L 110 18 121/70 94 02/06/18 12:08 02/06/18 06:49 02/06/18 12:08 02/06/18 12:08 02/06/18 07:26 General appearance: Present: cooperative, A&O X 3, answers questions appropriately - Head Head exam: Present: atraumatic, normal inspection - Neck Neck exam general surgery: Present: supple - Respiratory Respiratory exam: Present: decreased breath sounds, rales (mild), wheezes (mild) . Absent: respiratory distress, rhonchi - Cardiovascular Cardiovascular exam: Present: +S1, +S2. Absent: tachycardia - GI/Abdominal GI/Abdominal exam: Present: normal bowel sounds, soft. Absent: rebound, rigid, tenderness - Extremities Exam Extremities exam: Present: pedal edema (trace). Absent: calf tenderness, tenderness - Patient Status Disposition: Transfer SNF Condition: Good Overall status at discharge: patient is back to baseline - Discharge Instructions Follow Up With: Adolfo Tobias DO [Primary Care Provider] - (Patient will follow up with ECF PCP) - Diet and Activity Activity: increase activity as tolerated, wear oxygen at all times (2lit) Diet: low salt diet
--- NOTE | 2018-02-06 14:00 | Physician Discharge Referral ---
ExtendedCare Referral Info Transfer To: ECF Provider in Charge after Transfer: PCP Institutional Level of Care: Skilled - Diagnosis (1) Acute on chronic respiratory failure with hypoxia Status: Acute (2) Diastolic CHF, acute on chronic Status: Acute (3) Pleural effusion due to congestive heart failure Status: Chronic (4) C. difficile colitis Status: Acute (5) COPD exacerbation Status: Acute (6) Volume overload Status: Acute (7) Pulmonary edema Status: Resolved (8) ESRD (end stage renal disease) on dialysis Status: Chronic - Transfer Medications Prescriptions: OxyCODONE/APAP 5/325 [Percocet 5/325 MG] 1 each PO QID PRN 4 Days #12 tablet PRN Reason: Moderate Pain Home Medications: Finasteride [Proscar] 5 mg PO DAILY 07/26/16 [History] Metoprolol [Lopressor] 25 mg PO BID 07/26/16 [History] Vit A/C/E AC/Znox/Cupric Oxide [Eye Vitamin-Minerals Tablet] 1 tab PO BID [History] Polyvinyl Alcohol/Povidone/Pf [Refresh Classic Eye Drops] 1 drop OP BID [History] Polyethylene Glycol 3350 [MiraLAX] 17 gm PO Q48H 11/20/16 [History] Atorvastatin Calcium [Lipitor] 20 mg PO HS 12/22/16 [History] Fluticasone Propionate Nasal [Flonase] 1 spr NS DAILY PRN 05/03/17 [History] Ascorbic Acid [Vitamin C] 500 mg PO DAILY 06/29/17 [History] Montelukast [Singulair] 10 mg PO DAILY 10/29/17 [History] Oxygen 3 l NS AD 10/29/17 [History] Lactobacillus Acidophilus [Acidophilus] 100 mg PO BID 01/17/18 [History] Warfarin [Coumadin] 3 mg PO SUMOTUSA 01/17/18 [History] Albuterol Neb [AccuNeb] 1 vial IH Q4H PRN 02/03/18 [History] Amiodarone [Cordarone] 200 mg PO DAILY 02/03/18 [History] Folic Acid/Vit Bcomp,C [Renal Vitamin Tablet] 0.8 mg PO DAILY 02/03/18 [History] Furosemide [Lasix] 40 mg PO DAILY 02/03/18 [History] Lidocaine/Prilocaine CREAM [Emla] 1 gm TP MOWEFR PRN 02/03/18 [History] Loratadine [Allergy Relief] 10 mg PO DAILY 02/03/18 [History] Mirtazapine [Remeron] 15 mg PO HS 02/03/18 [History] Sevelamer [Renvela] 1,600 mg PO TIDWM 02/03/18 [History] Warfarin [Coumadin] 4 mg PO THFR 02/03/18 [History] OxyCODONE/APAP 5/325 [Percocet 5/325 MG] 1 each PO QID PRN 4 Days #12 tablet [Rx] Pantoprazole Sodium [Protonix] 40 mg PO DAILY #0 02/06/18 [Rx] Vancomycin Oral Soln [Vancocin] 250 mg PO QID 3 Days udc 02/06/18 [Rx] Allergies/Adverse Reactions: 3 Allergy/AdvReac Type Severity Reaction Status Date / Time Amoxicillin Allergy Swelling Verified 02/03/18 14:35 of Lip/Tongue/Throat Penicillins [PCN] Allergy Anaphylaxis Verified 02/03/18 14:35 venom-honey bee Allergy Anaphylaxis Verified 02/03/18 14:35 [bee venom (honey bee)] - Respiratory Orders Smoking Cessation: Smoking cessation has been advised. For more information, call the [place] Tobacco Quit Line at 8-782-OKSINOW. CERTIFICATION: I certify that the transfer of the above named patient to an Extended Care Facility is necessary for the continuing treatment of the diagnosis listed. The above information is true and accurate reflection of patient's current condition. Confidential - Redisclosure prohibited without a patient's written consent.
== END 2018-02-06 16:06 | DRG 291 ==
LOC: 2ANU → SUATTDRO 21:50
PROVIDERS: ADMIT Pediatrics; ATTEND Family Medicine

== ENCOUNTER 2018-02-26 14:20 | Inpatient (IN) ==
--- NOTE | 2018-02-26 14:52 | Emergency Department Note ---
Disposition Clinical Impression: Shortness of breath, Supratherapeutic INR, Diastolic CHF, acute on chronic, Pleural effusion due to congestive heart failure Disposition: Admitted As Inpatient Condition: Fair Referrals: Adolfo Tobias DO [Primary Care Provider] - Forms: ED Satisfaction Letter Time of Disposition: 15:00 SOB HPI - General Chief Complaint: ED Shortness of Breath/Dyspnea Stated Complaint: Time Seen by Provider: 02/26/18 14:32 Source: patient, EMS Mode of arrival: EMS Limitations: no limitations Vital Signs Reviewed: Yes - History of Present Illness Corey Yang 77-year-old male with history of CHF, CKD on dialysis, and COPD presenting with shortness of breath. He was noted to have increased lower extremity swelling as well as increasing shortness of breath today by the staff of [facility]. His last episode dialysis was yesterday. He denies nausea, vomiting, fever, chills, and chest pain. - Related Data Home Medications Medication Instructions Recorded Confirmed Finasteride [Proscar] 5 mg PO DAILY 07/26/16 02/03/18 Metoprolol [Lopressor] 25 mg PO BID 07/26/16 02/03/18 Polyvinyl Alcohol/Povidone/Pf 1 drop OP BID 08/18/16 02/03/18 [Refresh Classic Eye Drops] Atorvastatin Calcium [Lipitor] 20 mg PO HS 12/22/16 02/03/18 Fluticasone Propionate Nasal 1 spr NS DAILY PRN 05/03/17 02/03/18 [Flonase] Montelukast [Singulair] 10 mg PO DAILY 10/29/17 02/03/18 Oxygen 3 l NS AD 10/29/17 02/03/18 Lactobacillus Acidophilus 100 mg PO BID 01/17/18 02/03/18 [Acidophilus] Warfarin [Coumadin] 3 mg PO SUMOTUSA 01/17/18 02/03/18 Amiodarone [Cordarone] 200 mg PO DAILY 02/03/18 02/03/18 Folic Acid/Vit Bcomp,C [Renal 0.8 mg PO DAILY 02/03/18 02/03/18 Vitamin Tablet] Furosemide [Lasix] 40 mg PO DAILY 02/03/18 02/03/18 Lidocaine/Prilocaine CREAM [Emla] 1 gm TP MOWEFR PRN 02/03/18 02/03/18 Loratadine [Allergy Relief] 10 mg PO DAILY 02/03/18 02/03/18 Mirtazapine [Remeron] 15 mg PO HS 02/03/18 02/03/18 Sevelamer [Renvela] 1,600 mg PO TIDWM 02/03/18 02/03/18 Warfarin [Coumadin] 4 mg PO THFR 02/03/18 02/03/18 Albuterol Neb [Proventil Neb] 2.5 mg IH Q4H PRN 02/26/18 02/26/18 Ascorbate Calcium [Vitamin C] 500 mg PO DAILY 02/26/18 02/26/18 OxyCODONE/APAP 5/325 [Percocet 1 each PO Q6H PRN 02/26/18 02/26/18 5/325 MG] Pantoprazole Sodium [Protonix] 40 mg PO BID 02/26/18 02/26/18 Vit C/Vit E AC/Lut/Copper/Zinc 1 each PO BID 02/26/18 02/26/18 [Preservision Lutein Softgel] Allergies Allergy/AdvReac Type Severity Reaction Status Date / Time Amoxicillin Allergy Swelling Verified 02/03/18 14:35 of Lip/Tongue/Throat Penicillins [PCN] Allergy Anaphylaxis Verified 02/03/18 14:35 venom-honey bee Allergy Anaphylaxis Verified 02/03/18 14:35 [bee venom (honey bee)] Constitutional: Denies: fever, chills, weakness Cardiovascular: Denies: chest pain, palpitations Respiratory: Reports: cough, dyspnea, hemoptysis, sputum production Gastrointestinal: Denies: nausea, vomiting Past Medical History - Past Medical History Medical history: Reports: arthritis, atrial fibrillation, CHF, dialysis, GERD, hyperlipidemia, osteoporosis, renal disease, valvular heart disease, other Surgical history: Reports: appendectomy Psychiatric history: Reports: no psych history - Social History Smoking Status: Never smoker Smokeless Tobacco Status: No Alcohol use: Reports: none Drug use: Reports: none Physical Exam - General Limitations: no limitations General appearance: alert, in no apparent distress - Head Head exam: atraumatic, normocephalic - Respiratory Respiratory exam: Absent: respiratory distress, accessory muscle use - Expanded Respiratory Exam Location: wheezes: Left, Right, rhonchi: Left, Right, decreased breath sounds: Left, Right - Cardiovascular Cardiovascular exam: Present: normal rhythm, tachycardia, normal heart sounds, + S1, +S2 - Abdominal Exam Abdominal exam: Present: soft, Non-Tender - Extremities Exam Extremities exam: Present: pedal edema - Neurological Exam Neurological exam: Present: alert, oriented X3 - Psychiatric Psychiatric exam: Present: normal affect, normal mood - Skin Skin exam: Present: warm, dry Course Course Narrative: Patient with history of CKD on dialysis, COPD, and CHF presented with worsening shortness of breath. With signs of fluid overload, patient was initiated on BiPAP, with subjective improvement in symptoms. Workup initiated with CBC, CMP , BNP, EKG, chest x-ray, troponin, lactic acid, and coags. INR elevated at 5.1 , which could explain the blood tinged sputum. White blood cell count elevated to 37.9. With sputum production and elevated blood count, the patient was initiated on antibiotics including vancomycin, cefepime, and levofloxacin. Troponin at baseline 0.05, potassium 5.5, and BNP at 2751. Chest x-ray is significant for increased perihilar edema and increased right pleural effusion. Patient was taken off of BiPAP and started on nasal cannula. Oxygenation was stable at 90 to 91% on 5 L per minute. Case was discussed with admitting hospitalist, who accepted the patient for admission. Case was discussed with nephrology and consult was placed. Vital Signs Temperature 98.8 F 02/26/18 14:22 Pulse Rate 120 02/26/18 14:22 Respiratory Rate 21 02/26/18 14:22 Blood Pressure 103/59 02/26/18 14:22 O2 Sat by Pulse Oximetry 95 02/26/18 14:22 Temperature 98.8 F 02/26/18 14:22 Pulse Rate 118 02/26/18 15:31 Respiratory Rate 14 02/26/18 15:31 Blood Pressure 99/57 02/26/18 15:31 O2 Sat by Pulse Oximetry 97 02/26/18 15:31 Oxygen Delivery Oxygen Delivery Bipap Shortness of Breath/Dyspnea - Medical Records Medical records reviewed: Yes I reviewed the patient's medical records. - Lab Data Lab results reviewed: Yes I reviewed the patient's lab results. Result diagrams: 02/26/18 14:44 02/26/18 14:44 Lab Results 04/02/1002/26/18 02/26/18 Range/Units 14:44 14:44 14:44 WBC 37.9 H* (4.3-11.1) K/mcL RBC 3.49 L (4.19-5.50) M/mcL Hgb 10.4 L (12.9-16.9) g/dL Hct 31.5 L (37.5-50.1) % MCV 90.3 (83.0-100.0) fL MCH 29.8 (28.0-33.3) pg MCHC 33.0 (31.6-35.5) g/dL RDW 19.0 H (11.5-14.5) % Plt Count 330 (140-400) K/mcL MPV 11.0 (9.4-12.4) fL Seg Neutrophils % 91.0 % Band Neutrophils % 2.0 (0-4) % Lymphocytes % 1.0 % Monocytes % 6.0 % Neutrophils # 35.3 H (1.6-8.9) K/mcL Lymphocytes # 0.4 L (0.6-4.6) K/mcL Monocytes # 2.3 H (0.0-1.3) K/mcL Platelet Estimate Normal (Normal) Poikilocytosis 1+ A (Not Present) Anisocytosis 1+ A (Not Present) Target Cells 1+ A (Not Present) PT (9.4-12.1) Seconds INR APTT (26.0-36.0) Seconds Sodium 138 (136-145) mEq/L Potassium 5.5 H (3.5-5.1) mEq/L Chloride 97 L (98-107) mEq/L Carbon Dioxide 31 H (23-29) mEq/L BUN 57 H (8-23) mg/dL Creatinine 3.87 H (0.70-1.30) mg/dL Est GFR ( Amer) 18 L (> 60) Est GFR (Non-Af Amer) 15 L (> 60) BUN/Creatinine Ratio 15 (6-26) Glucose 76 (70-105) mg/dL Calculated Osmolality 301 H (280-300) Lactic Acid 1.5 (0.5-2.2) mmol/L Calcium 8.6 (8.6-10.3) mg/dL Troponin I 0.05 H* (< 0.04) ng/mL B-Natriuretic Peptide (Less than 100) pg/mL 02/26/18 02/26/18 Range/Units 14:44 14:44 WBC (4.3-11.1) K/mcL RBC (4.19-5.50) M/mcL Hgb (12.9-16.9) g/dL Hct (37.5-50.1) % MCV (83.0-100.0) fL MCH (28.0-33.3) pg MCHC (31.6-35.5) g/dL RDW (11.5-14.5) % Plt Count (140-400) K/mcL MPV (9.4-12.4) fL Seg Neutrophils % % Band Neutrophils % (0-4) % Lymphocytes % % Monocytes % % Neutrophils # (1.6-8.9) K/mcL Lymphocytes # (0.6-4.6) K/mcL Monocytes # (0.0-1.3) K/mcL Platelet Estimate (Normal) Poikilocytosis (Not Present) Anisocytosis (Not Present) Target Cells (Not Present) PT 57.2 H* (9.4-12.1) Seconds INR 5.1 H* APTT 42.3 H (26.0-36.0) Seconds Sodium (136-145) mEq/L Potassium (3.5-5.1) mEq/L Chloride (98-107) mEq/L Carbon Dioxide (23-29) mEq/L BUN (8-23) mg/dL Creatinine (0.70-1.30) mg/dL Est GFR ( Amer) (> 60) Est GFR (Non-Af Amer) (> 60) BUN/Creatinine Ratio (6-26) Glucose (70-105) mg/dL Calculated Osmolality (280-300) Lactic Acid (0.5-2.2) mmol/L Calcium (8.6-10.3) mg/dL Troponin I (< 0.04) ng/mL B-Natriuretic Peptide 2751 H (Less than 100) pg/mL - Radiology Data Radiology results reviewed: Yes I reviewed the patient's radiology results. Chest X-Ray 02/26/18 14:31 IMPRESSION: CHF with increased perihilar edema and interval increase in right pleural effusion and basilar volume loss. D/ / Arjun Prater MD / Arjun Prater MD Interpreting Provider: Arjun Prater MD - EKG Data EKG attestation: Yes I reviewed and interpreted this EKG. EKG results narrative: Sinus tachycardia rate 124 QRS 98 QT/QTC 301/374 Attestation Statement - Attestation Attestation: I, Charlie Mendoza DO, examined this patient [id number] and my medical decision-making was reviewed with Antwan Schumacher PGY-1, Resident Physician. I agree with the documented findings, disposition and treatment plan as described except to the extent set forth below. Please see my progress notes for details.
[2018-02-26 15:06] LABS: Hematocrit 31.5 % (37.5-50.1)
[2018-02-26 15:07] LABS: Hemoglobin 10.4 g/dL (12.9-16.9); Mean Corpuscular Hemoglobin 29.8 pg (28.0-33.3); Mean Corpuscular Volume 90.3 fL (83.0-100.0); Platelet Count 330 K/mcL (140-400); Red Blood Count 3.49 M/mcL (4.19-5.50)
[2018-02-26 15:15] LABS: Activated Partial Thrombo Time 42.3 Seconds (26.0-36.0)
[2018-02-26 15:19] LABS: Calcium 8.6 mg/dL (8.6-10.3); INR 5.1; Potassium 5.5 mEq/L (3.5-5.1)
[2018-02-26 15:20] LABS: Prothrombin Time 57.2 Seconds (9.4-12.1)
[2018-02-26 15:28] LABS: Troponin I 0.05 ng/mL (< 0.04)
[2018-02-26 15:29] LABS: Anisocytosis 1+ (Not Present); Lymphocytes # 0.4 K/mcL (0.6-4.6); Monocytes # 2.3 K/mcL (0.0-1.3); Neutrophils # 35.3 K/mcL (1.6-8.9); Platelet Estimate Normal (Normal)
[2018-02-26 15:30] LABS: Poikilocytosis 1+ (Not Present); Target Cells 1+ (Not Present)
--- NOTE | 2018-02-26 16:09 | Emergency Department Note ---
Disposition Clinical Impression: Acute exacerbation of chronic obstructive airways disease, CHF (congestive heart failure), Shortness of breath Disposition: Admitted As Inpatient Condition: Fair Referrals: Adolfo Tobais DO [Primary Care Provider] - Forms: ED Satisfaction Letter Time of Disposition: 16:48 General Adult HPI - General Chief complaint: ED Shortness of Breath/Dyspnea Stated complaint: Time Seen by Provider: 02/26/18 14:32 Source: patient, EMS Mode of arrival: EMS Limitations: no limitations Nursing Notes Reviewed: Yes Vital Signs Reviewed: Yes - History of Present Illness Pain Scale: 0 - Related Data Home Medications Medication Instructions Recorded Confirmed Finasteride [Proscar] 5 mg PO DAILY 07/26/16 02/03/18 Metoprolol [Lopressor] 25 mg PO BID 07/26/16 02/03/18 Vit A/C/E AC/Znox/Cupric Oxide 1 tab PO BID 07/26/16 02/03/18 [Eye Vitamin-Minerals Tablet] Polyvinyl Alcohol/Povidone/Pf 1 drop OP BID 08/18/16 02/03/18 [Refresh Classic Eye Drops] Polyethylene Glycol 3350 [MiraLAX] 17 gm PO Q48H 11/20/16 02/03/18 Atorvastatin Calcium [Lipitor] 20 mg PO HS 12/22/16 02/03/18 Fluticasone Propionate Nasal 1 spr NS DAILY PRN 05/03/17 02/03/18 [Flonase] Ascorbic Acid [Vitamin C] 500 mg PO DAILY 06/29/17 02/03/18 Montelukast [Singulair] 10 mg PO DAILY 10/29/17 02/03/18 Oxygen 3 l NS AD 10/29/17 02/03/18 Lactobacillus Acidophilus 100 mg PO BID 01/17/18 02/03/18 [Acidophilus] Warfarin [Coumadin] 3 mg PO SUMOTUSA 01/17/18 02/03/18 Albuterol Neb [AccuNeb] 1 vial IH Q4H PRN 02/03/18 02/03/18 Amiodarone [Cordarone] 200 mg PO DAILY 02/03/18 02/03/18 Folic Acid/Vit Bcomp,C [Renal 0.8 mg PO DAILY 02/03/18 02/03/18 Vitamin Tablet] Furosemide [Lasix] 40 mg PO DAILY 02/03/18 02/03/18 Lidocaine/Prilocaine CREAM [Emla] 1 gm TP MOWEFR PRN 02/03/18 02/03/18 Loratadine [Allergy Relief] 10 mg PO DAILY 02/03/18 02/03/18 Mirtazapine [Remeron] 15 mg PO HS 02/03/18 02/03/18 Sevelamer [Renvela] 1,600 mg PO TIDWM 02/03/18 02/03/18 Warfarin [Coumadin] 4 mg PO THFR 02/03/18 02/03/18 Previous Rx's Medication Instructions Recorded OxyCODONE/APAP 5/325 [Percocet 1 each PO QID PRN 4 Days #12 tablet 02/06/18 5/325 MG] Pantoprazole Sodium [Protonix] 40 mg PO DAILY #0 02/06/18 Vancomycin Oral Soln [Vancocin] 250 mg PO QID 3 Days udc 02/06/18 Allergies Allergy/AdvReac Type Severity Reaction Status Date / Time Amoxicillin Allergy Swelling Verified 02/03/18 14:35 of Lip/Tongue/Throat Penicillins [PCN] Allergy Anaphylaxis Verified 02/03/18 14:35 venom-honey bee Allergy Anaphylaxis Verified 02/03/18 14:35 [bee venom (honey bee)] Constitutional: Denies: fever, chills, weakness Cardiovascular: Denies: chest pain, palpitations Past Medical History - Past Medical History Medical history: Reports: arthritis, atrial fibrillation, CHF, dialysis, GERD, hyperlipidemia, osteoporosis, renal disease, valvular heart disease, other Surgical history: Reports: appendectomy Psychiatric history: Reports: no psych history - Social History Smoking Status: Never smoker Smokeless Tobacco Status: No Alcohol use: Reports: none Drug use: Reports: none Physical Exam - General Limitations: no limitations General appearance: alert Course Vital Signs Temperature 98.8 F 02/26/18 14:22 Pulse Rate 120 02/26/18 14:22 Respiratory Rate 21 02/26/18 14:22 Blood Pressure 103/59 02/26/18 14:22 O2 Sat by Pulse Oximetry 95 02/26/18 14:22 Temperature 98.8 F 02/26/18 14:22 Pulse Rate 118 02/26/18 15:31 Respiratory Rate 14 02/26/18 15:31 Blood Pressure 99/57 02/26/18 15:31 O2 Sat by Pulse Oximetry 97 02/26/18 15:31 Oxygen Delivery Oxygen Delivery Bipap Medical Decision Making - Lab Data Result diagrams: 02/26/18 14:44 02/26/18 14:44 Lab Results 02/26/18 02/26/18 02/26/18 Range/Units 14:44 14:44 14:44 WBC 37.9 H* (4.3-11.1) K/mcL RBC 3.49 L (4.19-5.50) M/mcL Hgb 10.4 L (12.9-16.9) g/dL Hct 31.5 L (37.5-50.1) % MCV 90.3 (83.0-100.0) fL MCH 29.8 (28.0-33.3) pg MCHC 33.0 (31.6-35.5) g/dL RDW 19.0 H (11.5-14.5) % Plt Count 330 (140-400) K/mcL MPV 11.0 (9.4-12.4) fL Seg Neutrophils % 91.0 % Band Neutrophils % 2.0 (0-4) % Lymphocytes % 1.0 % Monocytes % 6.0 % Neutrophils # 35.3 H (1.6-8.9) K/mcL Lymphocytes # 0.4 L (0.6-4.6) K/mcL Monocytes # 2.3 H (0.0-1.3) K/mcL Platelet Estimate Normal (Normal) Poikilocytosis 1+ A (Not Present) Anisocytosis 1+ A (Not Present) Target Cells 1+ A (Not Present) PT (9.4-12.1) Seconds INR APTT (26.0-36.0) Seconds Sodium 138 (136-145) mEq/L Potassium 5.5 H (3.5-5.1) mEq/L Chloride 97 L (98-107) mEq/L Carbon Dioxide 31 H (23-29) mEq/L BUN 57 H (8-23) mg/dL Creatinine 3.87 H (0.70-1.30) mg/dL Est GFR ( Amer) 18 L (> 60) Est GFR (Non-Af Amer) 15 L (> 60) BUN/Creatinine Ratio 15 (6-26) Glucose 76 (70-105) mg/dL Calculated Osmolality 301 H (280-300) Lactic Acid 1.5 (0.5-2.2) mmol/L Calcium 8.6 (8.6-10.3) mg/dL Troponin I 0.05 H* (< 0.04) ng/mL B-Natriuretic Peptide (Less than 100) pg/mL 02/26/18 02/26/18 Range/Units 14:44 14:44 WBC (4.3-11.1) K/mcL RBC (4.19-5.50) M/mcL Hgb (12.9-16.9) g/dL Hct (37.5-50.1) % MCV (83.0-100.0) fL MCH (28.0-33.3) pg MCHC (31.6-35.5) g/dL RDW (11.5-14.5) % Plt Count (140-400) K/mcL MPV (9.4-12.4) fL Seg Neutrophils % % Band Neutrophils % (0-4) % Lymphocytes % % Monocytes % % Neutrophils # (1.6-8.9) K/mcL Lymphocytes # (0.6-4.6) K/mcL Monocytes # (0.0-1.3) K/mcL Platelet Estimate (Normal) Poikilocytosis (Not Present) Anisocytosis (Not Present) Target Cells (Not Present) PT 57.2 H* (9.4-12.1) Seconds INR 5.1 H* APTT 42.3 H (26.0-36.0) Seconds Sodium (136-145) mEq/L Potassium (3.5-5.1) mEq/L Chloride (98-107) mEq/L Carbon Dioxide (23-29) mEq/L BUN (8-23) mg/dL Creatinine (0.70-1.30) mg/dL Est GFR ( Amer) (> 60) Est GFR (Non-Af Amer) (> 60) BUN/Creatinine Ratio (6-26) Glucose (70-105) mg/dL Calculated Osmolality (280-300) Lactic Acid (0.5-2.2) mmol/L Calcium (8.6-10.3) mg/dL Troponin I (< 0.04) ng/mL B-Natriuretic Peptide 2751 H (Less than 100) pg/mL Attestation Statement - Attestation Attestation: I, Charlie Mendoza DO, examined this patient [id number] and my medical decision-making was reviewed with Antwan Schumacher PGY-1, Resident Physician. I agree with the documented findings, disposition and treatment plan as described except to the extent set forth below. Please see my progress notes for details. 77-year-old male presents to the emergency room short of breath. Patient is a long-standing history of COPD emphysema fluid overload. Is also on dialysis secondary to renal failure. He is followed with the [facility]. Patient denies any trauma or injury. He did complete his entire dialysis treatment yesterday. He woke up this morning the swelling has hands. This is identical to all his other issues. Patient was CBC chemistry troponin as well as coags were ordered. Patient has Coumadin as a medication. Patient was found to have a elevated INR 5.1. He had several episodes of coughing with blood-tinged sputum at home. Patient is on this in the past as well. Patient is deferring rectal examination and clinically does not want evaluation this time considering other most likely be positive secondary to the blood-tinged sputum. Patient's vital signs remained stable. His pulse ox responded to positive pressure ventilation this point. Except as follows commands. Reactive the shoulder muscles are intact. His lungs are diminished with wheezing on presentation with intermittent crackles. Breathing treatments will be given as needed. Abdomen is soft. Patient has pitting edema in the upper extremities. Motion is pretty stable. Patient is clinically concerning for multiple medical issues could be exacerbating secondary adrenal insufficiency. Disposition pending the full workup and treatment course. Detailed documentation of physical exam, medical intervention, medical decision-making and disposition in the resident physician's note.TREATMENT course at this time. Patient will most likely require admission the hospital for further workup treatment course and evaluation. 1600 Patient has elevated white blood cell count, elevated INR 5.1. Patient will be admitted with unknown etiology to the elevated white blood cell count at this time. Patient does not have a known diagnosis of leukemia. He denies any infectious etiology. Patient will be treated empirically with vancomycin and Zosyn here in the emergency room for healthcare acquired pneumonia. Patient will be admitted for further management. No critical care applied the patient' s treatment course at this time. 1645 Patient has shown no acute signs of decompensation. Hospitalist was informed. Admission process will be completed at this time. The second facing baster was also, contacted.
[2018-02-26] MEDS ORDERED: Levofloxacin 750 MG/150 ML 750 MG/150 ML BAG IVPB ONE (16:29)
[2018-02-26] MEDS ORDERED: Albuterol 2.5 MG/3 ML NEBULIZER IH PRN (16:46)
[2018-02-26] MEDS ORDERED: Fluticasone Propionate Nasal 50 MCG/SPRAY BOTTLE NS PRN (16:48)
[2018-02-26] MEDS ORDERED: Naloxone 0.4 MG/ML INJ IVP PRN (16:51)
--- NOTE | 2018-02-26 17:42 | Internal Med History&Physical ---
<Davey Subramanian T - Last Filed: 02/26/18 18:32> Date of Encounter: 02/26/18 Internal Medicine - H&P: HPI History of present illness: Mr. Yang is a 77 year old male Internal Medicine - H&P: Meds Finasteride [Proscar] 5 mg PO DAILY 07/26/16 [History] Metoprolol [Lopressor] 25 mg PO BID 07/26/16 [History] Polyvinyl Alcohol/Povidone/Pf [Refresh Classic Eye Drops] 1 drop BOTH EYES BID 08/18/16 [History] Atorvastatin Calcium [Lipitor] 20 mg PO HS 12/22/16 [History] Fluticasone Propionate Nasal [Flonase] 1 spr NS DAILY PRN 05/03/17 [History] Montelukast [Singulair] 10 mg PO DAILY 10/29/17 [History] Oxygen 3 l NS AD 10/29/17 [History] Lactobacillus Acidophilus [Acidophilus] 100 mg PO BID 01/17/18 [History] Warfarin [Coumadin] 3 mg PO [place] 01/17/18 [History] Amiodarone [Cordarone] 200 mg PO DAILY 02/03/18 [History] Folic Acid/Vit Bcomp,C [Renal Vitamin Tablet] 0.8 mg PO DAILY 02/03/18 [History] Furosemide [Lasix] 40 mg PO DAILY 02/03/18 [History] Lidocaine/Prilocaine CREAM [Emla] 1 appl TP [id number] 02/03/18 [History] Loratadine [Allergy Relief] 10 mg PO DAILY 02/03/18 [History] Mirtazapine [Remeron] 15 mg PO HS 02/03/18 [History] Sevelamer [Renvela] 1,600 mg PO AD MDD See Comments. 02/03/18 [History] Warfarin [Coumadin] 4 mg PO THFR 02/03/18 [History] Albuterol Neb [Proventil Neb] 2.5 mg IH Q4H PRN 02/26/18 [History] Ascorbate Calcium [Vitamin C] 500 mg PO DAILY 02/26/18 [History] OxyCODONE/APAP 5/325 [Percocet 5/325 MG] 1 each PO Q6H PRN 02/26/18 [History] Pantoprazole Sodium [Protonix] 40 mg PO BID 02/26/18 [History] Vit C/Vit E AC/Lut/Copper/Zinc [Preservision Lutein Softgel] 1 each PO BID 02/26 [History] 3 Allergy/AdvReac Type Severity Reaction Status Date / Time Amoxicillin Allergy Swelling Verified 02/03/18 14:35 of Lip/Tongue/Throat Penicillins [PCN] Allergy Anaphylaxis Verified 02/03/18 14:35 venom-honey bee Allergy Anaphylaxis Verified 02/03/18 14:35 [bee venom (honey bee)] All Systems PM: A 10-system review of systems was performed and is negative for pertinent findings except as documented above in the HPI. - Constitutional Vitals: Temp Pulse Resp BP Pulse Ox 98.8 F 123 22 96/57 90 02/26/18 14:22 02/26/18 17:38 02/26/18 17:38 02/26/18 17:38 02/26/18 17:38 Internal Med - H&P Results - Labs CBC & Chem 7: 02/26/18 14:44 02/26/18 14:44 Labs: Short CBC 02/26/18 Range/Units 14:44 WBC 37.9 H* (4.3-11.1) K/mcL Hgb 10.4 L (12.9-16.9) g/dL Hct 31.5 L (37.5-50.1) % Plt Count 330 (140-400) K/mcL Neutrophils # 35.3 H (1.6-8.9) K/mcL BMP 02/26/18 14:44 Sodium 138 Potassium 5.5 H Chloride 97 L Carbon Dioxide 31 H BUN 57 H Creatinine 3.87 H Glucose 76 Calcium 8.6 Cardiac Enzymes 02/26/18 Range/Units 14:44 Troponin I 0.05 H* (< 0.04) ng/mL - Impressions ITS Impressions Chest X-Ray 02/26/18 14:31 IMPRESSION: CHF with increased perihilar edema and interval increase in right pleural effusion and basilar volume loss. D/ / Arjun Prater MD / Arjun Prater MD Interpreting Provider: Arjun Prater MD - Attending Attestation The patient was independently examined and his available records, imaging and labs were personally reviewd. I agree with the [employer]'s A&P. Coninue Vanc, Cefipime and Levaquine for suspected HCAP. Blood cultures pending. He is also volume overloaded and has ESRD on HD (M-W-F) so Nephrology was contacted byt the ER MD for Inpt. HD tomorrow. Diminished BS on right - Time Spent With Patient Total time spent is greater than 50% in coordination of care (as documented) at patient's floor/unit and/or counseling patient: <Robles Guillory - Last Filed: 02/26/18 20:12> Date of Encounter: 02/26/18 Time of Encounter: 17:36 Internal Medicine - H&P: HPI Chief complaint: Shortness of breath Admitted From: Home Plans for Post Hospital Care: Home History of present illness: Mr. Yang is a 77 year old male with a PMH of CHF, A-FIB, GERD, HLD, osteoporosis, valvular heart disease arthritis and ESRD. He presents to the ED today with a c/o shortness of breath which began yesterday evening and has been getting progressively worse since. He is reporting a cough productive of thick yellow sputum. Also, He reports that d/t the severe dyspnea he is unable to participate in his ADL's or ambulate. He denies any chills, fevers, chest pain, tachyardia/palpitations, abdominal pain, N/V/D or unilateral extremity swelling/ pain. He is a resident of an [facility] and had a recent admission in 02/10 for respiratory failure with hypoxia. His CXR shows CHF with perihilar edema and interval increase in right pleural effusion as well as basilar volume loss. Per my assessment their appears to be a left lower lobe consolidation. He has leukocytosis with WBC of 37.9 and a troponin elevation of 0.05. He is being admitted as inpatient d/t respiratory failure with hypoxia secondar to HCAP and CHF Past Med Surg Social Fam HX - Past Medical History Medical history: arthritis, atrial fibrillation, CHF, dialysis, GERD, hyperlipidemia, osteoporosis, renal disease, valvular heart disease, other Psychiatric history: no psych history - Past Surgical History Surgical History: appendectomy - Social History Smoking Status: Never smoker Smokeless Tobacco Status: No Alcohol use: none Drug use: none - Family History Mother Family Member Ethnicity: Non- Living Status: Hx Family Neurologic Disorders: Yes (Dementia) Father Living Status: Hx Family Cardiac Disorders: Yes (Heart Attack, HTN,) All Systems PM: A 10-system review of systems was performed and is negative for pertinent findings except as documented above in the HPI. Review of systems: REVIEW OF SYSTEMS GENERAL: Negative for any nausea, vomiting, fevers, chills, or weight loss. NEUROLOGIC: Negative for any blurry vision, blind spots, double vision, facial asymmetry, dysphagia, dysarthria, hemiparesis, hemisensory deficits, vertigo, ataxia. HEENT: Negative for any head trauma, neck trauma, neck stiffness, photophobia, phonophobia, sinusitis, rhinitis. CARDIAC: Negative for any chest pain, paroxysmal nocturnal dyspnea. Positive for bilateral lower extremity peripheral edema PULMONARY: Positive for any shortness of breath, wheezing, COPD, cough with thick yellow sputum production GASTROINTESTINAL: Negative for any abdominal pain, nausea, vomiting, bright red blood per rectum, melena. GENITOURINARY: Negative for any dysuria, hematuria, incontinence. INTEGUMENTARY: Negative for any rashes, cuts, insect bites. HEMATOLOGIC: Negative for any abnormal bruising, frequent infections or bleeding. - Constitutional Vitals: Temp Pulse Resp BP Pulse Ox 98.8 F 118 14 99/57 97 02/26/18 14:22 02/26/18 15:31 02/26/18 15:31 02/26/18 15:31 02/26/18 15:31 General appearance: Present: cooperative, mild distress, A&O X 3, answers questions appropriately Exam: PHYSICAL EXAMINATION: GENERAL: The patient is an ill-appearing 77-year-old male male in mild respiratory distress while on 4 L nasal cannula. He is alert and oriented x3. VITAL SIGNS: Temperature 98.8, pulse 118, respiratory rate 14 and 89% on 4 L nasal cannula, blood pressure 99/57 HEENT: Head is normocephalic and atraumatic. Extraocular muscles are intact. Pupils are equal, round, and reactive to light and accommodation. NECK: Supple. No carotid bruits. No lymphadenopathy or thyromegaly. LUNGS: Diminished with rhonchi in the left middle and lower lobe, fine expiratory wheezing throughout, fine rales in B/L bases, tachypneic, accessory muscle use HEART: tachycardic, irregular ABDOMEN: Soft, nontender, and nondistended. Positive bowel sounds. No hepatosplenomegaly was noted. EXTREMITIES:2+ pitting edema in BLE, and 2+ pitting edema in B/L forearms, generalized edema in Rt hand NEUROLOGIC: Cranial nerves II through XII are grossly intact. SKIN: No ulceration, rashes or lesions. Internal Med - H&P Results - Labs CBC & Chem 7: 02/26/18 14:44 02/26/18 14:44 Labs: Short CBC 02/26/18 Range/Units 14:44 WBC 37.9 H* (4.3-11.1) K/mcL Hgb 10.4 L (12.9-16.9) g/dL Hct 31.5 L (37.5-50.1) % Plt Count 330 (140-400) K/mcL Neutrophils # 35.3 H (1.6-8.9) K/mcL BMP 02/26/18 14:44 Sodium 138 Potassium 5.5 H Chloride 97 L Carbon Dioxide 31 H BUN 57 H Creatinine 3.87 H Glucose 76 Calcium 8.6 Cardiac Enzymes 02/26/18 Range/Units 14:44 Troponin I 0.05 H* (< 0.04) ng/mL - EKG Data EKG shows normal: sinus rhythm Rate: tachycardia - EKG Data Prior EKG available for review: yes - Impressions ITS Impressions Chest X-Ray 02/26/18 14:31 IMPRESSION: CHF with increased perihilar edema and interval increase in right pleural effusion and basilar volume loss. D/ / Arjun Prater MD / Arjun Prater MD Interpreting Provider: Arjun Prater MD - Assessment and plan (1) Sepsis Current Visit: Yes Status: Acute Assessment and plan: Presents today with dyspnea, and hypoxia secondary to HCAP. Has tachycardia, tachypnea, hypoxia, hypotension, and leukocytosis WBC 37.9, Lactic acid 1.5 He is requiring Bipap at this time d/t hypoxia. CXR per my assessment seems to have a consolidation in the left lower/middle lobe as well as CHF and perihilar edema. He is an ESRD patient so I will avoid avoid aggressive fluid resuscitation. SBP has improved since arrival -bronchodilators, IV steroids -UA with legionella, strep pneumo and mycoplasma -Blood cultures -CBCD, CMP in AM -trend troponins; so far adynamic at 0.05, chronically elevated -Protonix 40 mg IV QD -Vancomycin, levaquin and Cefepime Qualifiers: Sepsis type: sepsis due to unspecified organism Qualified Code(s): A41.9 - Sepsis, unspecified organism (2) HCAP (healthcare-associated pneumonia) Current Visit: Yes Status: Acute Assessment and plan: Presents today in respiratory distress, with hypoxia. CXR reveals CHF, and perihilar edema per radiology read. Per my assessment their appears to be some left lower lobe consolidation as well. WBC of 37.9 with no other obvious source of infection. He reports that he has been having increased dyspnea since yesterday and is having a cough productive of thick yellow sputum. He has been staying in an ECF and has had multiple admissions in the last 90 days. - Blood Cx - Urine Legionella antigen, strep pneumo urine antigen, and mycoplasma antigen - Antibiotics- Vancomycin per PT dosing, Cefepime and Levaquin - CBCD, CMP in AM - Resume home medications - Heparin 5000 U SQ BID - Duonebs, albuterol, and IV steroids - Respiratory support per BIPAP PRN, with goal to wean to nasal canula as tolerated - Continous tele, and SPO2 monitoring (3) Acute on chronic respiratory failure with hypoxia Current Visit: Yes Status: Acute Assessment and plan: secondary to HCAP, presents today with dyspnea and hypoxia with Spo2 in the high 80's. He reports an Spo2 of 90-92% on 2-3L NC at home. Requiring Bipap to maintain Sp02 greater than 88%. see plan above (4) Supratherapeutic INR Current Visit: Yes Status: Acute Assessment and plan: Hold today's dose of coumadin, resume with PT to dose (5) CHF exacerbation Current Visit: Yes Status: Acute Assessment and plan: Presents today with dyspnea and hypoxia CXR reveals CHF with increased perihilar edema and increased Rt pleural effusion BNP 2751 echo 11/11 EF 55% [facility], Indeterminate diastolic dysfunction BLE 2+ pitting edema -hold lasix for now as he reports that he does not make urine Qualifiers: Heart failure type: unspecified Qualified Code(s): I50.9 - Heart failure, unspecified (6) COPD exacerbation Current Visit: Yes Status: Acute Assessment and plan: H/O COPD dyspnea and hypoxia today upon presentation; wheezing noted on exam Initially required BIpap d/t hypoxia; now on NC as of my exam at 4L 90% see plan above (7) Volume overload Current Visit: Yes Status: Acute Assessment and plan: ESRD patient, Nephrology consulted. Plan for HD tomorrow Qualifiers: Qualified Code(s): E87.70 - Fluid overload, unspecified (8) Anemia in chronic kidney disease, on chronic dialysis Current Visit: Yes Status: Chronic Assessment and plan: stable, no bleeding noted. CBCD in am (9) Atrial fibrillation Current Visit: Yes Status: Chronic Assessment and plan: Sinus tachycardia per EKG, h/o A-fib. He is taking Amiodarone, Lopressor and Warfarin. Continue these medications Qualifiers: Atrial fibrillation type: chronic Qualified Code(s): I48.2 - Chronic atrial fibrillation (10) ESRD (end stage renal disease) on dialysis Current Visit: Yes Status: Chronic Assessment and plan: H/O ESRD, M-W-F hemodialysis patient. Last completed HD on Sunday of this week. Follow's with Dr. Valenzuela group. Nephrology consulted in the ED and will see in consultation (11) Elevated troponin Current Visit: Yes Status: Chronic Assessment and plan: chronically elevated has a h/o ESRD and chronic respiratory failure secondary to COPD Trend troponin (12) Hypertension Current Visit: Yes Status: Chronic Qualifiers: Hypertension type: essential hypertension Qualified Code(s): I10 - Essential (primary) hypertension (13) DVT prophylaxis Current Visit: Yes Status: Acute Assessment and plan: PT/INR supratherapeutic, continue coumadin with PT to dose - Time Spent With Patient Total time spent is greater than 50% in coordination of care (as documented) at patient's floor/unit and/or counseling patient: Greater than 35 minutes
[2018-02-26] MEDS ORDERED: Warfarin perPT PO PRN (18:00)
[2018-02-26] MEDS ORDERED: *HR* OxyCODONE/APAP 5/325 TABLET PO PRN (19:00)
[2018-02-26] MEDS: Ipratropium/Albuterol Neb 3 ML IH SCH (19:56)
[2018-02-26] MEDS ORDERED: NON-FORMULARY MEDICATION 1 EACH EACH (Vit A/C/E Ac/Znox/Cupric Oxide [Eye Vitamin-Minerals PO SCH (21:00)
[2018-02-26] MEDS ORDERED: Furosemide 40 MG/4 ML VIAL IVP SCH (21:00)
[2018-02-26] MEDS: MethylPREDNISolone 40 MG/ML VIAL IVP SCH ×2 (21:24→23:08)
[2018-02-26] MEDS: Artificial Tears SOLN 15 ML BOTTLE OP SCH (21:24)
[2018-02-26] MEDS: Mirtazapine 15 MG TABLET PO SCH (21:25)
[2018-02-27] MEDS: Ipratropium/Albuterol Neb 3 ML IH SCH ×6 (00:08→20:41)
[2018-02-27 01:36] LABS: Basophils % 0.2 %; Mean Platelet Volume 11.5 fL (9.4-12.4); Monocytes % 1.2 %; Red Cell Distribution Width 18.3 % (11.5-14.5)
[2018-02-27 01:38] LABS: Basophils # 0.1 K/mcL (0.0-0.2); Hemoglobin 9.5 g/dL (12.9-16.9); Immature Granulocytes % 1.5 % (0-4); Lymphocytes # 0.2 K/mcL (0.6-4.6); Lymphocytes % 0.4 %; Mean Corpuscular HGB Conc 33.9 g/dL (31.6-35.5); Mean Corpuscular Hemoglobin 30.1 pg (28.0-33.3); Mean Corpuscular Volume 88.6 fL (83.0-100.0); Monocytes # 0.6 K/mcL (0.0-1.3); Platelet Count 291 K/mcL (140-400); Red Blood Count 3.16 M/mcL (4.19-5.50); Segmented Neutrophils % 96.7 %
[2018-02-27 01:45] LABS: Neutrophils # 47.2 K/mcL (1.6-8.9)
[2018-02-27 01:46] LABS: INR 6.2; Prothrombin Time 69.1 Seconds (9.4-12.1)
[2018-02-27 02:02] LABS: Anisocytosis 1+ (Not Present); Large Platelets Present (Not Present); Platelet Estimate Normal (Normal); Poikilocytosis 1+ (Not Present); Target Cells 1+ (Not Present); Toxic Granulation Present (Not Present)
[2018-02-27 02:08] LABS: Troponin I 0.07 ng/mL (< 0.04)
[2018-02-27] MEDS: MethylPREDNISolone 40 MG/ML VIAL IVP SCH (04:48)
[2018-02-27] MEDS ORDERED: Aminoglycoside Consult 1 EACH MC ONE (07:37)
[2018-02-27] MEDS ORDERED: Furosemide 80 MG in 0.9 % Sodium Chloride 50 ML IVPB ONE (08:25)
--- NOTE | 2018-02-27 08:28 | Internal Med Progress Note ---
<Celestine Sahu - Last Filed: 02/27/18 10:05> Date of Encounter: 02/27/18 Time of Encounter: 10:05 - Assessment and plan (1) Acute on chronic respiratory failure with hypoxia Current Visit: Yes Status: Acute Assessment and plan: 2nd bacterial pna and chf eacerbation continue O2 supplementation, nebulizer steroids d/c as patient does not show evidence of copd exacerbation. (2) CHF exacerbation Current Visit: Yes Status: Acute Assessment and plan: Patient presented with lower extremity swelling and chest x-ray shows pulmonary edema. BNP elevated at 2751 Echocardiogram 10/29/2017 shows LVEF of 55-60% with mild concentric left ventricular hypertrophy, no wall motion abnormalities, mild tricuspid regurgitation. Plan to undergo dialysis today. Patient makes very little urine unlikely diuretics will improve CHF exacerbation. Qualifiers: Heart failure type: diastolic Qualified Code(s): I50.33 - Acute on chronic diastolic (congestive) heart failure (3) Sepsis Current Visit: Yes Status: Acute Assessment and plan: Currently his leukocytosis, tachycardia, tachypnea. Afebrile Lactic acid 1.5 Source pneumonia Continue vancomycin and cefepime. Qualifiers: Sepsis type: sepsis due to unspecified organism Qualified Code(s): A41.9 - Sepsis, unspecified organism (4) PNA (pneumonia) Current Visit: Yes Status: Acute Assessment and plan: Chest x-ray shows consolidation in left lower lobe. Patient reports having contact with grandchildren who had upper respiratory infection. Blood cultures, Legionella antigen, strep pneumonia antigen pending. Continue vancomycin and cefepime. Send sputum culture. Qualifiers: Pneumonia type: due to Pneumococcus Laterality: left Lung location: lower lobe of lung Qualified Code(s): J13 - Pneumonia due to Streptococcus pneumoniae (5) Supratherapeutic INR Current Visit: Yes Status: Acute Assessment and plan: INR can become elevated with chf exacerbation on warfarin for afib d/c warfarin repeat INR daily until between 2-3 (6) ESRD (end stage renal disease) on dialysis Current Visit: Yes Status: Chronic Assessment and plan: fluid overload 2nd to CHF exacerbation ESRD 2nd to amyloidosis On Sunday dialysis. Patient we dialysis today. Nephrology on board. (7) Hypertension Current Visit: Yes Status: Chronic Assessment and plan: Patient's blood pressure is 94/56 this morning. Hold hypertension medications. Qualifiers: Hypertension type: essential hypertension Qualified Code(s): I10 - Essential (primary) hypertension (8) Elevated troponin Current Visit: Yes Status: Chronic Assessment and plan: Likely demand ischemia from CHF exacerbation in setting of ESRD Troponin adynamic. Patient denies chest pain. Patient has stress echo October 2017 which was negative for ischemia. (9) DVT prophylaxis Current Visit: Yes Status: Acute Assessment and plan: EPCD inr supratherapeutic Patient's blood tinged sputum and will withhold medical prophylaxis. (10) Atrial fibrillation Current Visit: Yes Status: Chronic Assessment and plan: Currently patient's rate is 112. He is on amiodarone and metoprolol. We will reassess after dialysis. Warfarin on hold due to supratherapeutic INR. Qualifiers: Atrial fibrillation type: chronic Qualified Code(s): I48.2 - Chronic atrial fibrillation (11) Anemia in chronic kidney disease, on chronic dialysis Current Visit: Yes Status: Chronic Assessment and plan: Hemoglobin stable. Continue monitor. 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 Patient's renal failure likely secondary to amyloidosis. Stable. - Subjective Interval history: Patient currently sitting comfortably in bed. He is on 5 L oxygen. Reports his shortness of breath has improved considerably. His lower trace swelling is improved as well. He continues to have productive blood-tinged sputum that started yesterday morning. He denies headache, blurry vision, chest pain, palpitations, syncope, abdominal pain, nausea, vomiting. Patient reports last month he was diagnosed with C. difficile and treated with by mouth vancomycin for total of 2 weeks and had runny diarrhea. Patient reports this has resolved and currently he has loose stools which are normal for him. - Constitutional Vitals: Temp Pulse Resp BP Pulse Ox 97.8 F 112 18 94/56 95 02/27/18 07:11 02/27/18 07:11 02/27/18 07:52 02/27/18 07:11 02/27/18 07:52 General appearance: Present: cooperative, mild distress, A&O X 3, answers questions appropriately - Other Additional findings: General: without distress HEENT: Head atraumatic, normocephalic, EOMI, PERRL, neck nontender to palpation , absent lymphadenopathy, Moist Mucous Membranes, Heart: Irregularly irregular Lungs: Wheezing bilaterally, diminished, Abdomen: Soft nontender, nondistended positive bowel sounds Skin: warm and dry Extremities: Mild bilateral pedal edema Neuro: Alert and oriented 3 Vascular: Pedal and radial pulses 2 out of 4 Internal Medicine: Result - Labs CBC & Chem 7: 02/27/18 01:13 02/27/18 01:13 Labs: Short CBC 02/27/18 Range/Units 01:13 WBC 48.8 H* (4.3-11.1) K/mcL Hgb 9.5 L (12.9-16.9) g/dL Hct 28.0 L (37.5-50.1) % Plt Count 291 (140-400) K/mcL Neutrophils # 47.2 H (1.6-8.9) K/mcL Cardiac Enzymes 02/27/18 Range/Units 01:13 Troponin I 0.07 H* (< 0.04) ng/mL - ABG Interpretation ABG results: PT/INR, D-dimer PT 69.1 Seconds (9.4-12.1) H* 02/27/18 01:13 Consult Discharge Plan - Plan Referrals: Adolfo Tobias DO [Primary Care Provider] - 03/08/18 1:00 pm <Nicolás Lopez - Last Filed: 02/27/18 17:22> Date of Encounter: 02/27/18 - Constitutional Vitals: Temp Pulse Resp BP Pulse Ox 97.8 F 102 18 103/60 96 02/27/18 15:46 02/27/18 15:46 02/27/18 16:35 02/27/18 15:46 02/27/18 16:35 Internal Medicine: Result - Labs CBC & Chem 7: 02/27/18 01:13 02/27/18 01:13 Labs: Short CBC 02/27/18 Range/Units 01:13 WBC 48.8 H* (4.3-11.1) K/mcL Hgb 9.5 L (12.9-16.9) g/dL Hct 28.0 L (37.5-50.1) % Plt Count 291 (140-400) K/mcL Neutrophils # 47.2 H (1.6-8.9) K/mcL BMP 02/27/18 01:13 Sodium 136 Potassium 6.1 H Chloride 97 L Carbon Dioxide 24 BUN 65 H Creatinine 4.32 H Glucose 102 Calcium 8.6 Cardiac Enzymes 02/27/18 Range/Units 01:13 Troponin I 0.07 H* (< 0.04) ng/mL Liver Function 02/27/18 Range/Units 01:13 Total Bilirubin 1.5 H (0.3-1.0) mg/dL AST 23 (13-39) Units/L ALT 19 (7-52) Units/L Alkaline Phosphatase 1005 H (34-104) Units/L Albumin 3.0 L (3.5-5.7) g/dL - ABG Interpretation ABG results: PT/INR, D-dimer PT 69.1 Seconds (9.4-12.1) H* 02/27/18 01:13 - Attending Attestation I performed an independent interview and exam of this patient. I agree with the findings, assessment, and plan of Dr. Sahu, internal medicine resident. My input is reflected in his note. Patient's respiratory failure is improving. Shortness of breath has improved. He did receive 1 course of dialysis this morning and he is feeling symptomatically better. As regards to our concern for pneumonia, continues on vancomycin and cefepime which he is now day 2. I stopped Levaquin due to concerns for interactions with Coumadin, his INR is already supratherapeutic at 6.2. He did have some mild hemoptysis which appears to be resolving. We will need to follow this closely. I do not see an acute indication for reversal, unless he shows evidence of gladys worsening of his bleeding, or any evidence of hemodynamic instability. Patient has a mildly elevated troponin which is likely due to demand ischemia as well as diminished renal clearance. He is already anticoagulated. Pt will be monitored very closely in the progressive care unit. Nephrology input is appreciated. Exam: Awake alert and oriented 3, no acute distress. Calm, relaxed aching and near full sentences. Patient is thin with some mild cachexia area. Ill- appearing Skin is pale warm and dry Oropharynx is moist Heart is irregular rhythm Lungs show coarse breath sounds bilaterally with expiratory wheezes bilaterally Abdomen is soft nontender nondistended with normoactive bowel sounds Extremities show pedal edema. Neurological nonfocal
[2018-02-27] MEDS ORDERED: 0.9 % Sodium Chloride 250 ML IVC PRN (08:41)
[2018-02-27] MEDS ORDERED: 0.9 % Sodium Chloride 1,000 ML PRIME SCH (08:45)
[2018-02-27] MEDS ORDERED: Ascorbic Acid 500 MG TABLET PO SCH (09:00)
[2018-02-27 09:55] LABS: Hepatitis B Surface Antigen Nonreactive (Nonreactive)
[2018-02-27 09:59] LABS: Potassium 6.1 mEq/L (3.5-5.1)
[2018-02-27 10:00] LABS: Albumin/Globulin Ratio 1.3 (1.1-2.2); Bilirubin,Total 1.5 mg/dL (0.3-1.0); Calcium 8.6 mg/dL (8.6-10.3); Globulin 2.3 g/dL (2.4-3.5); Total Protein 5.3 g/dL (6.4-8.9)
[2018-02-27] MEDS: *HR* Amiodarone 200 MG TABLET PO SCH (14:29)
[2018-02-27] MEDS: Renal Vitamin 1 MG CAPSULE PO SCH (14:29)
[2018-02-27] MEDS: Loratadine 10 MG TABLET PO SCH (14:29)
[2018-02-27] MEDS: Finasteride 5 MG TABLET PO SCH (14:29)
[2018-02-27] MEDS: Ascorbic Acid 500 MG TABLET PO SCH (14:30)
[2018-02-27] MEDS: Artificial Tears SOLN 15 ML BOTTLE OP SCH ×2 (14:30→20:02)
[2018-02-27] MEDS: Multivit/Ca/Min/Fe/FA 1 TAB TABLET PO SCH (14:30)
[2018-02-27] MEDS: Vancomycin Oral Soln 250 MG/5 ML UDC PO SCH ×3 (14:31→20:56)
[2018-02-27] MEDS ORDERED: Cefepime HCl 2,000 MG in Water for inj. (sterile) 20 ML IVP ONE (16:28)
--- NOTE | 2018-02-27 17:45 | Nephrology Consult Note ---
Date of Encounter: 02/27/18 Time of Encounter: 12:00 Assessment and Plan (1) ESRD (end stage renal disease) on dialysis Status: Chronic Continue HD with UF as tolerated while emphasizing potassium (2) Hyperkalemia Status: Acute Potassium noted elevated at 5.5 worsening to 6.1 this am, will dialyze today with reduced potassium bath which should help Renal diet advised (3) Acute on chronic respiratory failure with hypoxia Status: Acute Likely multifactorial from PNA with sepsis and CHF exacerbation along with pleural effusion UF should help today Abx per primary team History of Present Illness - Reason for Consult Consult date: 02/27/18 end stage renal disease - History of Present Illness 77 y o male with PMH of Afib, CHF and ESRD on HD admitted with progressive SOB with cough. He is noted to have possible LL consolidation with elevated WBCs suggestive for PNA and also noted with pulm edema for CHF along with increasing R pleural effusion. Pt was been discharged within the past few weeks for pulm issues as well. Renal consulted for ESRD management. Pt seen and examined with SOB. Past Med Surg Social Fam HX - Past Medical History Medical history: arthritis, atrial fibrillation, CHF, dialysis, GERD, hyperlipidemia, osteoporosis, renal disease, valvular heart disease, other Psychiatric history: no psych history - Past Surgical History Surgical History: appendectomy - Social History Smoking Status: Never smoker Smokeless Tobacco Status: No Alcohol use: none Drug use: none - Family History Mother Family Member Ethnicity: Non- Living Status: Hx Family Neurologic Disorders: Yes (Dementia) Father Living Status: Hx Family Cardiac Disorders: Yes (Heart Attack, HTN,) Medications and Allergies Finasteride [Proscar] 5 mg PO DAILY 07/26/16 [History] Metoprolol [Lopressor] 25 mg PO BID 07/26/16 [History] Polyvinyl Alcohol/Povidone/Pf [Refresh Classic Eye Drops] 1 drop BOTH EYES BID 08/18/16 [History] Atorvastatin Calcium [Lipitor] 20 mg PO HS 12/22/16 [History] Fluticasone Propionate Nasal [Flonase] 1 spr NS DAILY PRN 05/03/17 [History] Montelukast [Singulair] 10 mg PO DAILY 10/29/17 [History] Oxygen 3 l NS AD 10/29/17 [History] Lactobacillus Acidophilus [Acidophilus] 100 mg PO BID 01/17/18 [History] Warfarin [Coumadin] 3 mg PO SUMOTUSA 01/17/18 [History] Amiodarone [Cordarone] 200 mg PO DAILY 02/03/18 [History] Folic Acid/Vit Bcomp,C [Renal Vitamin Tablet] 0.8 mg PO DAILY 02/03/18 [History] Furosemide [Lasix] 40 mg PO DAILY 02/03/18 [History] Lidocaine/Prilocaine CREAM [Emla] 1 appl TP MOWEFR 02/03/18 [History] Loratadine [Allergy Relief] 10 mg PO DAILY 02/03/18 [History] Mirtazapine [Remeron] 15 mg PO HS 02/03/18 [History] Sevelamer [Renvela] 1,600 mg PO AD MDD See Comments. 02/03/18 [History] Warfarin [Coumadin] 4 mg PO THFR 02/03/18 [History] Albuterol Neb [Proventil Neb] 2.5 mg IH Q4H PRN 02/26/18 [History] Ascorbate Calcium [Vitamin C] 500 mg PO DAILY 02/26/18 [History] OxyCODONE/APAP 5/325 [Percocet 5/325 MG] 1 each PO Q6H PRN 02/26/18 [History] Pantoprazole Sodium [Protonix] 40 mg PO BID 02/26/18 [History] Vit C/Vit E AC/Lut/Copper/Zinc [Preservision Lutein Softgel] 1 each PO BID 02/26 [History] Vancomycin Oral Soln [Vancocin] 125 mg PO QID #94 03/02/18 [Rx] 3 Allergy/AdvReac Type Severity Reaction Status Date / Time Amoxicillin Allergy Swelling Verified 02/03/18 14:35 of Lip/Tongue/Throat Penicillins [PCN] Allergy Anaphylaxis Verified 02/03/18 14:35 venom-honey bee Allergy Anaphylaxis Verified 02/03/18 14:35 [bee venom (honey bee)] Review of Systems All Systems: reviewed and no additional remarkable complaints except as stated Exam - Vital Signs Vital signs: Initial Vital Signs Temp Pulse Resp BP Pulse Ox 98.8 F 120 21 103/59 95 02/26/18 14:22 02/26/18 14:22 02/26/18 14:22 02/26/18 14:22 02/26/18 14:22 Vital Signs - Last 8 Hours Temp Pulse Resp BP Pulse Ox 02/27/18 16:35 18 96 02/27/18 15:46 97.8 F 102 22 103/60 99 02/27/18 13:20 97.0 F L 15 93/61 02/27/18 13:05 97/51 02/27/18 12:50 95/54 02/27/18 12:35 98/53 02/27/18 12:20 94/54 02/27/18 12:05 92/56 02/27/18 11:50 91/54 02/27/18 11:35 95/54 02/27/18 11:20 95/57 02/27/18 11:05 97/55 02/27/18 10:50 94/53 02/27/18 10:35 97/54 02/27/18 10:20 97/57 02/27/18 10:05 98/54 02/27/18 09:50 102/55 Intake and Output 02/27/18 02/27/18 02/27/18 07:59 15:59 23:59 Intake Total 1080 / 1080 Output Total 4600 / 4600 Balance -3520 / -3520 Intake: Oral 480 / 480 Intake, Rinseback and Flushes 600 / 600 Output: Urine 0 / 0 Total Dialysis (HD) Output 4600 / 4600 Other: Meal Breakfast Percent of Meal Consumed 100% Stool Size Moderate Stool Consistency soft Hemodialysis Net Fluid Removed 4000 (mL) - General Appearance General appearance: chronically ill, frail EENT: ATNC, mucous membranes moist Neck: no JVD, supple Respiratory: course breath sounds Cardiology: edema, normal S1, normal S2 - Dialysis Access Dialysis Vascular Access: Arteriovenous Fistula thrill: Yes bruit: Yes Gastrointestinal: no tenderness, no guarding Integumentary: warm and dry Neurologic: no focal deficit Musculoskeletal: no deformities Psychiatric: mood/affect appropriate Results - Lab Results 03/02/18 04:00 03/02/18 04:00 Most recent lab results Calcium 8.6 mg/dL (8.6-10.3) 02/27/18 01:13 Consult Discharge Plan - Plan Instructions: Heart Failure (DC), Heart Failure (GEN), Chronic Hypertension (DC ), End-Stage Kidney Disease (GEN) Additional Instructions: Follow-up here hospital visit with your primary care provider by setting up an appointment within the next week. Continue to itch her INR checked as she normally would. Continue dialysis as she normally would. Take all medications as prescribed. Return to the emergency department if you have worsening of your current symptoms or if you develop any new symptoms Referrals: Adolfo Tobias DO [Primary Care Provider] - 03/08/18 1:00 pm Prescriptions: Vancomycin Oral Soln [Vancocin] 125 mg PO QID #94
[2018-02-27] MEDS: Cefepime HCl 1,000 MG in Water for inj. (sterile) 20 ML 10 ML IVP SCH (17:48)
[2018-02-27] MEDS: Mirtazapine 15 MG TABLET PO SCH (20:00)
[2018-02-28] MEDS: Ipratropium/Albuterol Neb 3 ML IH SCH ×7 (00:07→23:24)
[2018-02-28 05:22] LABS: Basophils % 0.1 %; Monocytes % 4.7 %; Red Cell Distribution Width 18.6 % (11.5-14.5)
[2018-02-28 05:23] LABS: Hematocrit 27.5 % (37.5-50.1); Hemoglobin 9.2 g/dL (12.9-16.9); Lymphocytes # 0.2 K/mcL (0.6-4.6); Lymphocytes % 0.9 %; Mean Corpuscular HGB Conc 33.5 g/dL (31.6-35.5); Mean Corpuscular Hemoglobin 30.2 pg (28.0-33.3); Mean Corpuscular Volume 90.2 fL (83.0-100.0); Mean Platelet Volume 11.5 fL (9.4-12.4); Monocytes # 1.2 K/mcL (0.0-1.3); Neutrophils # 24.4 K/mcL (1.6-8.9); Platelet Count 303 K/mcL (140-400); Red Blood Count 3.05 M/mcL (4.19-5.50); Segmented Neutrophils % 93.3 %
[2018-02-28 05:27] LABS: INR 5.3; Prothrombin Time 58.8 Seconds (9.4-12.1)
[2018-02-28 05:29] LABS: Albumin 3.1 g/dL (3.5-5.7); Albumin/Globulin Ratio 1.3 (1.1-2.2); Bilirubin,Total 1.1 mg/dL (0.3-1.0); Calcium 9.1 mg/dL (8.6-10.3); Globulin 2.3 g/dL (2.4-3.5); Potassium 5.4 mEq/L (3.5-5.1); Total Protein 5.4 g/dL (6.4-8.9)
[2018-02-28 06:16] LABS: Anisocytosis 1+ (Not Present); Platelet Estimate Normal (Normal)
--- NOTE | 2018-02-28 07:27 | Internal Med Progress Note ---
<Celestine Sahu - Last Filed: 02/28/18 09:25> Date of Encounter: 02/28/18 Time of Encounter: 09:16 - Assessment and plan (1) Acute on chronic respiratory failure with hypoxia Current Visit: Yes Status: Acute Assessment and plan: 2nd suspected bacterial pna and chf eacerbation, continue O2 supplementation, nebulizer Improving Oxygen requirements down to 3 L. (2) Clostridium difficile diarrhea Current Visit: Yes Status: Acute Assessment and plan: Positive C. difficile PCR. Likely etiology of severe WBC elevation which is now improved from 48 to 26 Continue by mouth vancomycin. Patient will need a long-term tapered antibiotic regimen. (3) CHF exacerbation Current Visit: Yes Status: Acute Assessment and plan: Patient presented with lower extremity swelling and chest x-ray shows pulmonary edema. BNP elevated at 2751 Echocardiogram 10/29/2017 shows LVEF of 55-60% with mild concentric left ventricular hypertrophy, no wall motion abnormalities, mild tricuspid regurgitation. Underwent dialysis with total removal of 4600 mL. Qualifiers: Heart failure type: diastolic Qualified Code(s): I50.33 - Acute on chronic diastolic (congestive) heart failure (4) Sepsis Current Visit: Yes Status: Acute Assessment and plan: Currently his leukocytosis, tachycardia, Tachypnea resolved Afebrile Lactic acid 1.5 on admission Source pneumonia, C. difficile Continue vancomycin and cefepime. Continue by mouth vancomycin Qualifiers: Sepsis type: sepsis due to unspecified organism Qualified Code(s): A41.9 - Sepsis, unspecified organism (5) PNA (pneumonia) Current Visit: Yes Status: Suspected Assessment and plan: Chest x-ray shows consolidation in left lower lobe. Patient reports having contact with grandchildren who had upper respiratory infection. Blood cultures preliminarily negative, Legionella antigen, strep pneumonia antigen pending. We will discontinue vancomycin IV and continue cefepime. Repeat chest x-ray Sputum culture pending Qualifiers: Pneumonia type: due to Pneumococcus Laterality: left Lung location: lower lobe of lung Qualified Code(s): J13 - Pneumonia due to Streptococcus pneumoniae (6) Supratherapeutic INR Current Visit: Yes Status: Acute Assessment and plan: INR can become elevated with chf exacerbation Improving on warfarin for afib Hold warfarin repeat INR daily until between 2-3 (7) ESRD (end stage renal disease) on dialysis Current Visit: Yes Status: Chronic Assessment and plan: fluid overload 2nd to CHF exacerbation ESRD 2nd to amyloidosis On Sunday dialysis. Patient will dialyze again on Sunday Nephrology on board. (8) Hypertension Current Visit: Yes Status: Chronic Assessment and plan: Patient's blood pressure is 94/56 this morning. Hold hypertension medications. Qualifiers: Hypertension type: essential hypertension Qualified Code(s): I10 - Essential (primary) hypertension (9) Elevated troponin Current Visit: Yes Status: Chronic Assessment and plan: Likely demand ischemia from CHF exacerbation in setting of ESRD Troponin adynamic. Patient denies chest pain. Patient has stress echo October 2017 which was negative for ischemia. (10) DVT prophylaxis Current Visit: Yes Status: Acute Assessment and plan: EPCD inr supratherapeutic Patient's blood tinged sputum and will withhold medical prophylaxis. (11) Atrial fibrillation Current Visit: Yes Status: Chronic Assessment and plan: Currently patient's rate is around 100. He is on amiodarone and metoprolol. Controlled Warfarin on hold due to supratherapeutic INR. Qualifiers: Atrial fibrillation type: chronic Qualified Code(s): I48.2 - Chronic atrial fibrillation (12) Anemia in chronic kidney disease, on chronic dialysis Current Visit: Yes Status: Chronic Assessment and plan: Hemoglobin stable. Continue monitor. 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 Patient's renal failure likely secondary to amyloidosis. Stable. - Subjective Interval history: Patient denies any complaints. Reports he has watery diarrhea this morning. C. difficile PCR positive. He is tolerating his diet. Does not have abdominal pain. He continues to have cough with blood tinged sputum. His shortness of breath is improved. Denies chest pain. - Constitutional Vitals: Temp Pulse Resp BP Pulse Ox 97.7 F 103 20 92/55 97 02/28/18 03:25 02/28/18 03:25 02/28/18 03:40 02/28/18 03:25 02/28/18 03:40 General appearance: Present: cooperative, mild distress, A&O X 3, answers questions appropriately - Other Additional findings: General: without distress HEENT: Moist mucous membranes Heart: Irregularly irregular Lungs: Diminished bilaterally otherwise clear Abdomen: Soft nontender, nondistended positive bowel sounds Skin: warm and dry Extremities: Absent pedal edema Neuro: Alert and oriented 3 Vascular: Pedal and radial pulses 2 out of 4 Internal Medicine: Result - Labs CBC & Chem 7: 02/28/18 04:54 02/28/18 04:54 Labs: Short CBC 02/28/18 Range/Units 04:54 WBC 26.1 H (4.3-11.1) K/mcL Hgb 9.2 L (12.9-16.9) g/dL Hct 27.5 L (37.5-50.1) % Plt Count 303 (140-400) K/mcL Neutrophils # 24.4 H (1.6-8.9) K/mcL BMP 02/27/18 02/28/18 01:13 04:54 Sodium 136 137 Potassium 6.1 H 5.4 H Chloride 97 L 99 Carbon Dioxide 24 28 BUN 65 H 48 H Creatinine 4.32 H 3.01 H Glucose 102 152 H Calcium 8.6 9.1 Cardiac Enzymes 02/27/18 Range/Units 01:13 Troponin I 0.07 H* (< 0.04) ng/mL Liver Function 02/27/18 02/28/18 Range/Units 01:13 04:54 Total Bilirubin 1.5 H 1.1 H (0.3-1.0) mg/dL AST 23 22 (13-39) Units/L ALT 19 19 (7-52) Units/L Alkaline Phosphatase 1005 H 793 H (34-104) Units/L Albumin 3.0 L 3.1 L (3.5-5.7) g/dL - ABG Interpretation ABG results: PT/INR, D-dimer PT 58.8 Seconds (9.4-12.1) H* 02/28/18 04:54 - Impressions Impressions KUB X-Ray 02/27/18 14:42 IMPRESSION: Mild gaseous distention of the stomach. Otherwise negative single-view of the abdomen. D/ / Rob Raymond MD / Rob Raymond MD Interpreting Provider: Rob Raymond MD Consult Discharge Plan - Plan Referrals: MurciaJamieFarzadKennedy, DO [Primary Care Provider] - 03/08/18 1:00 pm <LopezNicolás - Last Filed: 02/28/18 15:10> Date of Encounter: 02/28/18 - Constitutional Vitals: Temp Pulse Resp BP Pulse Ox 97.9 F 107 20 96/65 96 02/28/18 12:47 02/28/18 12:47 02/28/18 12:47 02/28/18 12:47 02/28/18 12:47 Internal Medicine: Result - Labs CBC & Chem 7: 02/28/18 04:54 02/28/18 04:54 Labs: Short CBC 02/28/18 Range/Units 04:54 WBC 26.1 H (4.3-11.1) K/mcL Hgb 9.2 L (12.9-16.9) g/dL Hct 27.5 L (37.5-50.1) % Plt Count 303 (140-400) K/mcL Neutrophils # 24.4 H (1.6-8.9) K/mcL BMP 02/28/18 04:54 Sodium 137 Potassium 5.4 H Chloride 99 Carbon Dioxide 28 BUN 48 H Creatinine 3.01 H Glucose 152 H Calcium 9.1 Liver Function 02/28/18 Range/Units 04:54 Total Bilirubin 1.1 H (0.3-1.0) mg/dL AST 22 (13-39) Units/L ALT 19 (7-52) Units/L Alkaline Phosphatase 793 H (34-104) Units/L Albumin 3.1 L (3.5-5.7) g/dL - ABG Interpretation ABG results: PT/INR, D-dimer PT 58.8 Seconds (9.4-12.1) H* 02/28/18 04:54 - Impressions Impressions KUB X-Ray 02/27/18 14:42 IMPRESSION: Mild gaseous distention of the stomach. Otherwise negative single-view of the abdomen. D/ / Rob Raymond MD / Rob Raymond MD Interpreting Provider: Rob Raymond MD Chest X-Ray 02/28/18 09:11 IMPRESSION: 1. Cardiomegaly. 2. Calcific atherosclerosis aorta. 3. Slight interval decreased opacity in the lungs with persistent findings of congestive heart failure versus bilateral pneumonia. D/ / Chato Sanchez / Chato Sanchez Interpreting Provider: Chato Sanchez - Attending Attestation I performed an independent interview and examine this patient. I discussed the case in detail with Dr. Sahu, internal medicine resident. I agree with his findings, assessment, and plan. My input is reflected throughout his note. Patient is positive for C. difficile and at this point given his severe leukocytosis we will label him as recurrent C. difficile infection. Less we will implement the prolonged vancomycin taper. I am not convinced he has pneumonia although given his severe sepsis will continue with antibiotics today and reassess. His x-ray to rule in or rule out pneumonia. Continues to improve dramatically we will likely de-escalate antibiotics or stop them altogether with the exception of enteric vancomycin for his C. difficile infection. His white blood cell count is decreased by 50% from admission and clinically he is doing much better. We will continue to monitor. Volume status is significantly improved after dialysis and his next run is scheduled for tomorrow. All else as outlined in the above note.
[2018-02-28] MEDS: *HR* Amiodarone 200 MG TABLET PO SCH (08:08)
[2018-02-28] MEDS: Finasteride 5 MG TABLET PO SCH (08:08)
[2018-02-28] MEDS: Loratadine 10 MG TABLET PO SCH (08:08)
[2018-02-28] MEDS: Multivit/Ca/Min/Fe/FA 1 TAB TABLET PO SCH (08:09)
[2018-02-28] MEDS: Renal Vitamin 1 MG CAPSULE PO SCH (08:09)
[2018-02-28] MEDS: Vancomycin Oral Soln 250 MG/5 ML UDC PO SCH ×4 (08:09→21:49)
[2018-02-28] MEDS: Artificial Tears SOLN 15 ML BOTTLE OP SCH ×2 (08:10→21:50)
--- NOTE | 2018-02-28 11:49 | Nephrology Progress Note ---
<Reyna Terrell - Last Filed: 02/28/18 11:53> Date of Encounter: 02/28/18 Time of Encounter: 11:47 - Assessment and Plan (1) ESRD (end stage renal disease) on dialysis Status: Chronic Plan for HD tomorrow Renal diet-ordered Strict I/Os-ordered Avoid nephrotoxins if possible (2) Hyperkalemia Status: Acute K+ better at 5.4 Will continue to monitor closely (3) PNA (pneumonia) Status: Suspected WBC down from 48.8 to 26.1 On antibiotics per primary team Qualifiers: Pneumonia type: due to Pneumococcus Laterality: left Lung location: lower lobe of lung Qualified Code(s): J13 - Pneumonia due to Streptococcus pneumoniae Subjective Principal diagnosis: ESRD on dialysis, acute on chronic respiratory failure with hypoxia Interval history: Patient seen and examined; sleeping soundly Objective - Vital Signs Vital signs: Vital Signs Temp Pulse Resp BP Pulse Ox 02/28/18 07:54 18 96 02/28/18 07:37 97.8 F 104 20 92/64 95 02/28/18 03:40 20 97 02/28/18 03:25 97.7 F 103 21 92/55 97 02/28/18 00:08 16 98 02/27/18 23:49 97.8 F 100 20 98/63 97 02/27/18 20:41 18 98 02/27/18 19:44 97.7 F 116 20 101/56 96 02/27/18 16:35 18 96 02/27/18 15:46 97.8 F 102 22 103/60 99 02/27/18 13:20 97.0 F L 15 93/61 02/27/18 13:05 97/51 02/27/18 12:50 95/54 02/27/18 12:35 98/53 02/27/18 12:20 94/54 02/27/18 12:05 92/56 02/27/18 11:50 91/54 Intake and Output 02/27/18 02/28/18 02/28/18 23:59 07:59 15:59 Intake Total 740 / 740 250 / 250 360 / 360 Balance 740 / 740 250 / 250 360 / 360 Intake: IV Fluids 260 / 260 250 / 250 Maxipime 1,000 MG In Water for 10 inj. (sterile) 10 ML @ 150 mls/ hr IVP Q24H GAIL Rx#:[id number] Vancocin 750 MG In 0.9 % Sodium 250 / 250 Chloride 250 ML @ 250 mls/hr IVPB ONCE ONE Rx#:[id number] Oral 480 / 480 360 / 360 Other: Meal Dinner Percent of Meal Consumed 50% 100% Stool Size Moderate Stool Consistency loose liquid Stool Color Brown # Bowel Movement Diapers 1 Weight 66.2 kg Patient Weight 02/28/18 23:59 Weight 66.2 kg - General Appearance General appearance: Present: cachectic, chronically ill, frail EENT: Present: ATNC Neck: Present: supple Respiratory: Present: clear Cardiology: Present: no edema, normal S1, normal S2 Dialysis Vascular Access: Arteriovenous Fistula Gastrointestinal: Present: no tenderness, no guarding Integumentary: Present: warm and dry - Lab 02/28/18 04:54 02/28/18 04:54 Most recent lab results Calcium 9.1 mg/dL (8.6-10.3) 02/28/18 04:54 Consult Discharge Plan - Plan Instructions: Heart Failure (DC), Heart Failure (GEN), Chronic Hypertension (DC ), End-Stage Kidney Disease (GEN) Additional Instructions: Follow-up here hospital visit with your primary care provider by setting up an appointment within the next week. Continue to itch her INR checked as she normally would. Continue dialysis as she normally would. Take all medications as prescribed. Return to the emergency department if you have worsening of your current symptoms or if you develop any new symptoms Referrals: Adolfo Tobias DO [Primary Care Provider] - 03/08/18 1:00 pm Prescriptions: Vancomycin Oral Soln [Firvanq] 125 mg PO QID #94 <Frandy Almeida - Last Filed: 03/28/18 23:10> Date of Encounter: 02/28/18 - Assessment and Plan (1) ESRD (end stage renal disease) on dialysis Status: Chronic (2) Hyperkalemia Status: Acute (3) Acute on chronic respiratory failure with hypoxia Status: Acute Objective - Lab 03/02/18 04:00 03/02/18 04:00 Most recent lab results Calcium 8.5 mg/dL (8.6-10.3) L 03/02/18 04:00 - Attending Attestation I examined this patient and my medical decision-making was reviewed with the Resident Physician. I agree with the documented findings, disposition and treatment plan as described except to the extent set forth below. Pt seen and examined with no new issues. Next HD planned tomorrow with UF as tolerated. Lytes stable except potassium at 5.4 which is actually improved. Continue renal diet. On exam very frail and improved areation with less LE edema.
[2018-02-28] MEDS: Cefepime HCl 1,000 MG in Water for inj. (sterile) 20 ML 10 ML IVP SCH (16:36)
[2018-02-28] MEDS ORDERED: Levofloxacin 500 MG/100 ML 500 MG/100 ML BAG IVPB SCH (17:00)
[2018-02-28] MEDS: Mirtazapine 15 MG TABLET PO SCH (21:49)
[2018-03-01] MEDS: Ipratropium/Albuterol Neb 3 ML IH SCH ×6 (03:33→23:56)
[2018-03-01 04:38] LABS: Basophils % 0.1 %; Eosinophils % 0.2 %; Hematocrit 28.5 % (37.5-50.1); Hemoglobin 9.6 g/dL (12.9-16.9); Immature Granulocytes % 0.6 % (0-4); Lymphocytes # 0.4 K/mcL (0.6-4.6); Mean Corpuscular HGB Conc 33.7 g/dL (31.6-35.5); Mean Corpuscular Hemoglobin 29.5 pg (28.0-33.3); Mean Corpuscular Volume 87.7 fL (83.0-100.0); Mean Platelet Volume 11.1 fL (9.4-12.4); Monocytes # 1.4 K/mcL (0.0-1.3); Monocytes % 8.1 %; Neutrophils # 15.7 K/mcL (1.6-8.9); Nucleated Red Blood Cells 0.2 /100 WBC (0); Platelet Count 314 K/mcL (140-400); Red Blood Count 3.25 M/mcL (4.19-5.50); Red Cell Distribution Width 18.3 % (11.5-14.5)
[2018-03-01 04:40] LABS: INR 3.3
[2018-03-01 04:55] LABS: Calcium 8.8 mg/dL (8.6-10.3); Potassium 5.8 mEq/L (3.5-5.1)
[2018-03-01] MEDS ORDERED: 0.9 % Sodium Chloride 2,000 ML ONE (07:11)
[2018-03-01] MEDS ORDERED: 0.9 % Sodium Chloride 250 ML IVC PRN (07:28)
[2018-03-01] MEDS ORDERED: 0.9 % Sodium Chloride 1,000 ML PRIME SCH (07:30)
[2018-03-01] MEDS: Renal Vitamin 1 MG CAPSULE PO SCH (07:45)
[2018-03-01] MEDS: Loratadine 10 MG TABLET PO SCH (07:46)
[2018-03-01] MEDS: Multivit/Ca/Min/Fe/FA 1 TAB TABLET PO SCH (07:46)
[2018-03-01] MEDS: Ascorbic Acid 500 MG TABLET PO SCH (07:46)
[2018-03-01] MEDS: *HR* Amiodarone 200 MG TABLET PO SCH (07:46)
[2018-03-01] MEDS: Finasteride 5 MG TABLET PO SCH (07:46)
[2018-03-01] MEDS: Artificial Tears SOLN 15 ML BOTTLE OP SCH ×2 (07:47→21:38)
[2018-03-01] MEDS: Vancomycin Oral Soln 250 MG/5 ML UDC PO SCH ×4 (07:48→21:37)
--- NOTE | 2018-03-01 08:53 | Internal Med Progress Note ---
<Maria L Cantud - Last Filed: 03/01/18 16:21> Date of Encounter: 03/01/18 Time of Encounter: 08:50 - Assessment and plan (1) Acute on chronic respiratory failure with hypoxia Current Visit: Yes Status: Acute Assessment and plan: Clinically, patient is improving. 95% on oxygen via nasal cannula. Also, patient's receiving dialysis today which will help as well. (2) C. difficile colitis Current Visit: No Status: Acute Assessment and plan: Stools are formed. Continue oral vancomycin. Plan for 6 weeks of therapy. (3) PNA (pneumonia) Current Visit: Yes Status: Suspected Assessment and plan: Clinically, I do not think patient has pneumonia. We will stop cefepime. He has received this for 3 days. Qualifiers: Pneumonia type: due to Pneumococcus Laterality: left Lung location: lower lobe of lung Qualified Code(s): J13 - Pneumonia due to Streptococcus pneumoniae (4) Sepsis Current Visit: Yes Status: Acute Assessment and plan: Was likely secondary to C. difficile infection. Patient has now had formed stools. Continue treatment as mentioned above. Qualifiers: Sepsis type: sepsis due to unspecified organism Qualified Code(s): A41.9 - Sepsis, unspecified organism (5) CHF exacerbation Current Visit: Yes Status: Acute Assessment and plan: Patient had dialysis today. Tachypnea has resolved. Qualifiers: Heart failure type: diastolic Qualified Code(s): I50.33 - Acute on chronic diastolic (congestive) heart failure (6) ESRD (end stage renal disease) on dialysis Current Visit: Yes Status: Chronic Assessment and plan: Dialysis today. Sunday known end-stage renal disease. (7) Anemia Current Visit: No Status: Chronic Assessment and plan: Stable. Is not 9.6 today was 9.2 yesterday Qualifiers: Anemia type: due to chronic kidney disease Chronic kidney disease stage: on chronic dialysis Qualified Code(s): N18.6 - End stage renal disease; D63.1 - Anemia in chronic kidney disease; D63.1 - Anemia in chronic kidney disease; Z99.2 - Dependence on renal dialysis; Z99.2 - Dependence on renal dialysis; Z99.2 - Dependence on renal dialysis; Z99.2 - Dependence on renal dialysis (8) Atrial fibrillation Current Visit: Yes Status: Chronic Assessment and plan: Currently rate controlled on home medications. INR today was 3.3. Pharmacy to dose Coumadin. No longer complaining of the blood-tinged sputum, denies hematochezia, hematuria. Qualifiers: Atrial fibrillation type: chronic Qualified Code(s): I48.2 - Chronic atrial fibrillation (9) Hypertension Current Visit: Yes Status: Chronic Assessment and plan: Continue home medications. Blood pressures have been lower with systolic at 100 , diastolic is 62. Continue to monitor. Qualifiers: Hypertension type: essential hypertension Qualified Code(s): I10 - Essential (primary) hypertension (10) Supratherapeutic INR Current Visit: Yes Status: Acute Assessment and plan: Today's INR is 2.3 as mentioned above. Pharmacy to dose Coumadin starting today. (11) Elevated troponin Current Visit: Yes Status: Chronic Assessment and plan: End-stage renal disease. No reports of chest pain. 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 - Subjective Interval history: Patient states he is doing well today. Not experiencing any shortness of breath or cough. Denies any episodes of diarrhea today as well. Denies any hemoptysis, hematemesis, hematochezia, hematuria. Patient is supposed to have dialysis today. - Constitutional Vitals: Temp Pulse Resp BP Pulse Ox 97.4 F L 104 16 100/62 95 03/01/18 06:54 03/01/18 06:54 03/01/18 06:54 03/01/18 06:54 03/01/18 06:54 General appearance: Present: cooperative, mild distress, A&O X 3, answers questions appropriately - Head Head exam: Present: atraumatic, normal inspection - ENT ENT exam: Present: mucous membranes moist, normal exam - Neck Neck exam general surgery: Present: supple, trachea midline - Respiratory Respiratory exam: Present: rales (Mild) Internal Medicine: Result - Labs CBC & Chem 7: 03/01/18 04:06 03/01/18 04:06 Labs: Short CBC 03/01/18 Range/Units 04:06 WBC 17.6 H (4.3-11.1) K/mcL Hgb 9.6 L (12.9-16.9) g/dL Hct 28.5 L (37.5-50.1) % Plt Count 314 (140-400) K/mcL Neutrophils # 15.7 H (1.6-8.9) K/mcL BMP 03/01/18 04:06 Sodium 135 L Potassium 5.8 H Chloride 98 Carbon Dioxide 26 BUN 67 H Creatinine 3.88 H Glucose 84 Calcium 8.8 - ABG Interpretation ABG results: PT/INR, D-dimer PT 37.0 Seconds (9.4-12.1) H 03/01/18 04:06 - Impressions Impressions Chest X-Ray 02/28/18 09:11 IMPRESSION: 1. Cardiomegaly. 2. Calcific atherosclerosis aorta. 3. Slight interval decreased opacity in the lungs with persistent findings of congestive heart failure versus bilateral pneumonia. D/ / Chato Sanchez / Chato Sanchez Interpreting Provider: Chato Sanchez Consult Discharge Plan - Plan Referrals: Adolfo Tobias DO [Primary Care Provider] - 03/08/18 1:00 pm <Nicolás Lopez - Last Filed: 03/01/18 17:33> Date of Encounter: 03/01/18 - Constitutional Vitals: Temp Pulse Resp BP Pulse Ox 98.6 F 101 16 106/95 95 03/01/18 17:24 03/01/18 17:24 03/01/18 17:24 03/01/18 17:24 03/01/18 17:24 Internal Medicine: Result - Labs CBC & Chem 7: 03/01/18 04:06 03/01/18 04:06 Labs: Short CBC 03/01/18 Range/Units 04:06 WBC 17.6 H (4.3-11.1) K/mcL Hgb 9.6 L (12.9-16.9) g/dL Hct 28.5 L (37.5-50.1) % Plt Count 314 (140-400) K/mcL Neutrophils # 15.7 H (1.6-8.9) K/mcL BMP 03/01/18 04:06 Sodium 135 L Potassium 5.8 H Chloride 98 Carbon Dioxide 26 BUN 67 H Creatinine 3.88 H Glucose 84 Calcium 8.8 - ABG Interpretation ABG results: PT/INR, D-dimer PT 37.0 Seconds (9.4-12.1) H 03/01/18 04:06 - Attending Attestation I performed an independent interview and examine this patient. I agree with the findings, assessment, and plan of Dr. Cantu, internal medicine internet marketer. Patient continues to improve. He did have diarrhea and a positive C. 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 He is on oral vancomycin and appears to be improving. We did stop his antibiotics as we are not convinced he has had pneumonia. He did have 3 days of cefepime. Pt continues to improve from a volume overload standpoint due to dialysis. His INR is now therapeutic and we will ask pharmacy to assist with dosing. Patient otherwise continues to improve. All else as outlined above.
--- NOTE | 2018-03-01 12:42 | Nephrology Progress Note ---
Date of Encounter: 03/01/18 Time of Encounter: 12:38 - Assessment and Plan (1) ESRD (end stage renal disease) on dialysis Current Visit: Yes Status: Chronic HD MWF. Renal vitamins. Renal dose medications. Renal diet. Additional dialysis and ultrafiltration as needed. Patient was seen on dialysis. Will evaluate for the need for HD on Sunday. Subjective Principal diagnosis: ESRD on dialysis, acute on chronic respiratory failure with hypoxia Interval history: Mr. Yang was seen and evaluated while on dialysis. He was slightly nauseated, but denies emesis. Otherwise he stated that he was "fine". Objective - Vital Signs Vital signs: Vital Signs Temp Pulse Resp BP Pulse Ox 03/01/18 11:45 105/65 03/01/18 11:30 119/63 03/01/18 11:15 111/58 03/01/18 11:00 108/61 03/01/18 10:45 108/64 03/01/18 10:30 118/73 03/01/18 10:15 110/67 03/01/18 10:00 110/70 03/01/18 09:45 103/65 03/01/18 09:30 97.1 F L 18 122/68 03/01/18 08:00 100 03/01/18 06:54 97.4 F L 104 16 100/62 95 03/01/18 03:50 97.8 F 103 19 97/51 93 03/01/18 03:33 20 96 02/28/18 23:33 98.0 F 102 21 102/66 95 02/28/18 23:24 18 97 02/28/18 19:00 98.0 F 107 19 115/66 95 02/28/18 15:57 16 96 02/28/18 15:39 97.5 F L 102 20 95/61 95 02/28/18 12:47 97.9 F 107 20 96/65 96 Intake and Output 02/28/18 03/01/18 03/01/18 23:59 07:59 15:59 Intake Total 240 / 240 600 / 600 Balance 240 / 240 600 / 600 Intake: Oral 240 / 240 0 / 0 Intake, Rinseback and Flushes 600 / 600 Other: Meal Dinner Percent of Meal Consumed 90% Weight 64.1 kg Hemodialysis Net Fluid Removed 2311 (mL) Patient Weight 03/01/18 23:59 Weight 64.1 kg - General Appearance General appearance: Present: well-developed, well-nourished, obese EENT: Present: ATNC Neck: Present: supple Cardiology: Present: edema, regular rate Dialysis Vascular Access: Venous Catheter Integumentary: Present: warm and dry Neurologic: Present: alert and oriented x3 Psychiatric: Present: mood/affect appropriate - Lab 03/01/18 04:06 03/01/18 04:06 Most recent lab results Calcium 8.8 mg/dL (8.6-10.3) 03/01/18 04:06 Consult Discharge Plan - Plan Referrals: Adolfo Tobias DO [Primary Care Provider] - 03/08/18 1:00 pm
[2018-03-01 14:38] LABS: Mycoplasma pneumoniae IgG 0.47 U/L (<=0.09)
[2018-03-01] MEDS ORDERED: *HR* Warfarin 3 MG TABLET PO SCH (18:00)
[2018-03-01] MEDS: Mirtazapine 15 MG TABLET PO SCH (21:37)
[2018-03-02] MEDS: Ipratropium/Albuterol Neb 3 ML IH SCH ×3 (03:53→11:37)
[2018-03-02 04:36] LABS: Basophils % 0.3 %; Eosinophils # 0.2 K/mcL (0.0-0.6); Hematocrit 26.9 % (37.5-50.1); Hemoglobin 9.1 g/dL (12.9-16.9); Immature Granulocytes % 0.5 % (0-4); Lymphocytes # 0.4 K/mcL (0.6-4.6); Lymphocytes % 4.1 %; Mean Corpuscular HGB Conc 33.8 g/dL (31.6-35.5); Mean Corpuscular Hemoglobin 29.9 pg (28.0-33.3); Mean Corpuscular Volume 88.5 fL (83.0-100.0); Mean Platelet Volume 11.3 fL (9.4-12.4); Monocytes # 1.2 K/mcL (0.0-1.3); Neutrophils # 7.8 K/mcL (1.6-8.9); Nucleated Red Blood Cells 0.5 /100 WBC (0); Platelet Count 296 K/mcL (140-400); Red Blood Count 3.04 M/mcL (4.19-5.50); Segmented Neutrophils % 81.1 %
[2018-03-02 04:42] LABS: INR 2.3; Prothrombin Time 25.4 Seconds (9.4-12.1)
[2018-03-02 05:02] LABS: Calcium 8.5 mg/dL (8.6-10.3); Potassium 4.3 mEq/L (3.5-5.1)
[2018-03-02] MEDS: Renal Vitamin 1 MG CAPSULE PO SCH (07:39)
[2018-03-02] MEDS: Loratadine 10 MG TABLET PO SCH (07:39)
[2018-03-02] MEDS: Finasteride 5 MG TABLET PO SCH (07:39)
[2018-03-02] MEDS: Multivit/Ca/Min/Fe/FA 1 TAB TABLET PO SCH (07:39)
[2018-03-02] MEDS: Ascorbic Acid 500 MG TABLET PO SCH (07:39)
[2018-03-02] MEDS: *HR* Amiodarone 200 MG TABLET PO SCH (07:39)
[2018-03-02] MEDS: Vancomycin Oral Soln 250 MG/5 ML UDC PO SCH (07:40)
[2018-03-02] MEDS: Artificial Tears SOLN 15 ML BOTTLE OP SCH (07:45)
--- NOTE | 2018-03-02 10:30 | Discharge Summary ---
<Jr Cantu - Last Filed: 03/02/18 10:34> Orders not resulted at time of discharge: Pending orders 02/27/18 10:23 Sputum Culture [Culture,Sputum with Gram Stain] [] Routine 03/03/18 04:00 BMP [Basic Metabolic Panel] AM 0400 Complete Blood Count [HEME] AM 0400 PT/INR [Prothrombin Time INR] [COAG] AM 0400 03/04/18 04:00 PT/INR [Prothrombin Time INR] [COAG] AM 0400 03/05/18 04:00 PT/INR [Prothrombin Time INR] [COAG] AM 0400 Date of Encounter: 03/02/18 Time of Encounter: 10:28 - Discharge Diagnosis (1) C. difficile colitis Priority: Primary Status: Acute (2) Acute on chronic respiratory failure with hypoxia Priority: Secondary Status: Acute (3) Supratherapeutic INR Priority: Primary Status: Acute (4) Sepsis Priority: Primary Status: Acute Qualifiers: Sepsis type: sepsis due to unspecified organism Qualified Code(s): A41.9 - Sepsis, unspecified organism (5) PNA (pneumonia) Priority: Secondary Status: Suspected Qualifiers: Pneumonia type: due to Pneumococcus Laterality: left Lung location: lower lobe of lung Qualified Code(s): J13 - Pneumonia due to Streptococcus pneumoniae (6) ESRD (end stage renal disease) on dialysis Priority: Primary Status: Chronic (7) CHF exacerbation Priority: Primary Status: Acute Qualifiers: Heart failure type: diastolic Qualified Code(s): I50.33 - Acute on chronic diastolic (congestive) heart failure (8) Anemia Priority: Secondary Status: Chronic Qualifiers: Anemia type: due to chronic kidney disease Chronic kidney disease stage: on chronic dialysis Qualified Code(s): N18.6 - End stage renal disease; D63.1 - Anemia in chronic kidney disease; D63.1 - Anemia in chronic kidney disease; Z99.2 - Dependence on renal dialysis; Z99.2 - Dependence on renal dialysis; Z99.2 - Dependence on renal dialysis; Z99.2 - Dependence on renal dialysis (9) Atrial fibrillation Priority: Secondary Status: Chronic Qualifiers: Atrial fibrillation type: chronic Qualified Code(s): I48.2 - Chronic atrial fibrillation (10) Hypertension Priority: Secondary Status: Chronic Qualifiers: Hypertension type: essential hypertension Qualified Code(s): I10 - Essential (primary) hypertension (11) Elevated troponin Priority: Secondary Status: Chronic (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 Yang is a 77 year old male with end-stage renal disease, atrial fibrillation on Coumadin, hypertension, recent diagnosis of C. difficile colitis , CHF who presented to the emergency department with shortness of breath, meeting sepsis criteria, with concern for possibility of bilateral pneumonia versus exacerbation of CHF.. Patient was also noted to have blood-tinged sputum with a supratherapeutic INR. Patient was also having recurrence of diarrhea consistent with his previous episode of C. difficile colitis. Patient' s leukocytosis was severely elevated initially. Has reduced drastically since then. Coumadin was held until INR became in a therapeutic range. Patient received antibiotics for possible treatment of pneumonia, but he stopped after a few days as suspicion of pneumonia decreased. Patient was having loose stools initially, but these have improved over the last couple days. Patient no longer complaining of diarrhea. We will initiate C. difficile treatment with a oral vancomycin taper over the next 6 weeks. Patient has been provided a prescription of this. Patient received dialysis yesterday. Clinically, patient is progressing back to baseline. He was hemodynamically stable not in acute distress at time of discharge from the hospital. Patient agree with plan, discharge. Nephrology was okay with him going home as well. Patient was started back on his Coumadin. KUB X-Ray 02/27/18 14:42 IMPRESSION: Mild gaseous distention of the stomach. Otherwise negative single-view of the abdomen. D/ / Rob Raymond MD / Rob Raymond MD Interpreting Provider: Rob Raymond MD Chest X-Ray 02/28/18 09:11 IMPRESSION: 1. Cardiomegaly. 2. Calcific atherosclerosis aorta. 3. Slight interval decreased opacity in the lungs with persistent findings of congestive heart failure versus bilateral pneumonia. D/ / Chato Sanchez / Chato Sanchez Interpreting Provider: Chato Sanchez - Time Spent with Patient Total time spent providing and/or coordinating discharge services: - Discharge Medications Prescriptions: Vancomycin Oral Soln [Vancocin] 125 mg PO QID #94 Home Medications: Finasteride [Proscar] 5 mg PO DAILY 07/26/16 [History] Metoprolol [Lopressor] 25 mg PO BID 07/26/16 [History] Polyvinyl Alcohol/Povidone/Pf [Refresh Classic Eye Drops] 1 drop BOTH EYES BID 08/18/16 [History] Atorvastatin Calcium [Lipitor] 20 mg PO HS 12/22/16 [History] Fluticasone Propionate Nasal [Flonase] 1 spr NS DAILY PRN 05/03/17 [History] Montelukast [Singulair] 10 mg PO DAILY 10/29/17 [History] Oxygen 3 l NS AD 10/29/17 [History] Lactobacillus Acidophilus [Acidophilus] 100 mg PO BID 01/17/18 [History] Warfarin [Coumadin] 3 mg PO SUMOTUSA 01/17/18 [History] Amiodarone [Cordarone] 200 mg PO DAILY 02/03/18 [History] Folic Acid/Vit Bcomp,C [Renal Vitamin Tablet] 0.8 mg PO DAILY 02/03/18 [History] Furosemide [Lasix] 40 mg PO DAILY 02/03/18 [History] Lidocaine/Prilocaine CREAM [Emla] 1 appl TP MOWEFR 02/03/18 [History] Loratadine [Allergy Relief] 10 mg PO DAILY 02/03/18 [History] Mirtazapine [Remeron] 15 mg PO HS 02/03/18 [History] Sevelamer [Renvela] 1,600 mg PO AD MDD See Comments. 02/03/18 [History] Warfarin [Coumadin] 4 mg PO THFR 02/03/18 [History] Albuterol Neb [Proventil Neb] 2.5 mg IH Q4H PRN 02/26/18 [History] Ascorbate Calcium [Vitamin C] 500 mg PO DAILY 02/26/18 [History] OxyCODONE/APAP 5/325 [Percocet 5/325 MG] 1 each PO Q6H PRN 02/26/18 [History] Pantoprazole Sodium [Protonix] 40 mg PO BID 02/26/18 [History] Vit C/Vit E AC/Lut/Copper/Zinc [Preservision Lutein Softgel] 1 each PO BID 02/26 [History] Vancomycin Oral Soln [Vancocin] 125 mg PO QID #94 03/02/18 [Rx] Allergies/Adverse Reactions: 3 Allergy/AdvReac Type Severity Reaction Status Date / Time Amoxicillin Allergy Swelling Verified 02/03/18 14:35 of Lip/Tongue/Throat Penicillins [PCN] Allergy Anaphylaxis Verified 02/03/18 14:35 venom-honey bee Allergy Anaphylaxis Verified 02/03/18 14:35 [bee venom (honey bee)] Date of admission: 02/26/18 18:29 Primary care physician: Adolfo Tobias DO Consults: 02/26/18 18:35 Consult to Nephrology [CONS] Routine Consulting Provider: Kidney [place]/JORDAN/LATIA/PEGGY Reason for Consult: Pt on dialysis, K 5.5 Time Notified: 16:30 Call Completed: Yes 02/27/18 08:45 Consult to Dialysis [CONS] ONCE 03/01/18 07:30 Consult to Dialysis [CONS] ONCE 03/01/18 08:44 Consult to Invasive Line Access Team [CONS] Routine Reason for Consult: LIMITED ACCESS Line Type: EPIV - Constitutional Vitals: Temp Pulse Resp BP Pulse Ox 97.9 F 102 18 105/69 93 03/02/18 07:34 03/02/18 08:51 03/02/18 07:43 03/02/18 07:34 03/02/18 08:00 General appearance: Present: cooperative, mild distress, A&O X 3, answers questions appropriately - Head Head exam: Present: atraumatic, normal inspection - ENT ENT exam: Present: mucous membranes moist - Neck Neck exam general surgery: Present: supple, trachea midline - Respiratory Respiratory exam: Present: CTAB. Absent: respiratory distress, rhonchi, wheezes - Cardiovascular Cardiovascular exam: Present: RRR, +S1, +S2. Absent: JVD - GI/Abdominal GI/Abdominal exam: Present: soft, no peritoneal signs. Absent: rebound, rigid, tenderness - Extremities Exam Extremities exam: Absent: pedal edema - Patient Status Disposition: Transfer Other Condition: Good Overall status at discharge: patient is progressing back to baseline - Discharge Instructions Instructions: Heart Failure (DC), Heart Failure (GEN), Chronic Hypertension (DC ), End-Stage Kidney Disease (GEN) Follow Up With: Adolfo Tobias DO [Primary Care Provider] - 03/08/18 1:00 pm Additional Instructions: Follow-up here hospital visit with your primary care provider by setting up an appointment within the next week. Continue to itch her INR checked as she normally would. Continue dialysis as she normally would. Take all medications as prescribed. Return to the emergency department if you have worsening of your current symptoms or if you develop any new symptoms - Diet and Activity Activity: increase activity as tolerated Diet: advance to your usual diet <Nicolás Lopez - Last Filed: 03/02/18 14:33> Orders not resulted at time of discharge: Pending orders 02/27/18 10:23 Sputum Culture [Culture,Sputum with Gram Stain] [RM] Routine Date of Encounter: 03/02/18 Hospital course: Mr. Yang is a 77 year old male - Time Spent with Patient Total time spent providing and/or coordinating discharge services: Date of admission: 02/26/18 18:29 Primary care physician: Adolfo Tobias DO Consults: 02/26/18 18:35 Consult to Nephrology [CONS] Routine Consulting Provider: Kidney [place]/JORDAN/LATIA/PEGGY Reason for Consult: Pt on dialysis, K 5.5 Time Notified: 16:30 Call Completed: Yes 02/27/18 08:45 Consult to Dialysis [CONS] ONCE 03/01/18 07:30 Consult to Dialysis [CONS] ONCE 03/01/18 08:44 Consult to Invasive Line Access Team [CONS] Routine Reason for Consult: LIMITED ACCESS Line Type: EPIV - Constitutional Vitals: Temp Pulse Resp BP Pulse Ox 97.6 F 99 18 116/70 93 03/02/18 11:11 03/02/18 11:11 03/02/18 11:11 03/02/18 11:11 03/02/18 11:11 - Attending Attestation I performed an independent interview and examine this patient. I agree with the findings, assessment, and plan of Dr. Cantu, internal medicine application internship. Patient improved from a restaurant standpoint fairly quickly with dialysis and removal of fluid. We do not believe he has a pneumonia and therefore antibiotics were stopped. He does however evidence of recurrent C. difficile for which we did start him back on vancomycin and at this point given his recent episode of C. difficile, we will place him on a 6 week tapering course of vancomycin. Patient otherwise was doing well and deemed stable for discharge. He was seen by nephrology and they have discharged with plans for ongoing hemodialysis next Sunday. We did inform the patient to return at any provider know in the future that he has a history of C. difficile should he ever need antibiotics again. Patient was deemed stable for discharge. 39 minutes spent on discharge and coordination of care.
--- NOTE | 2018-03-02 10:53 | Physician Discharge Referral ---
ExtendedCare Referral Info Transfer To: ECF - Diagnosis (1) C. difficile colitis Priority: Primary Status: Acute (2) Acute on chronic respiratory failure with hypoxia Priority: Primary Status: Acute (3) Supratherapeutic INR Priority: Primary Status: Acute (4) Sepsis Priority: Primary Status: Acute (5) PNA (pneumonia) Priority: Secondary Status: Suspected (6) ESRD (end stage renal disease) on dialysis Priority: Primary Status: Chronic (7) CHF exacerbation Priority: Primary Status: Acute (8) Anemia Priority: Secondary Status: Chronic (9) Atrial fibrillation Priority: Secondary Status: Chronic (10) Hypertension Priority: Secondary Status: Chronic (11) Elevated troponin Priority: Secondary Status: Chronic (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 Priority: Secondary Status: Chronic (13) DVT prophylaxis Priority: Secondary Status: Acute - Transfer Medications Prescriptions: Vancomycin Oral Soln [Vancocin] 125 mg PO QID #94 Home Medications: Finasteride [Proscar] 5 mg PO DAILY 07/26/16 [History] Metoprolol [Lopressor] 25 mg PO BID 07/26/16 [History] Polyvinyl Alcohol/Povidone/Pf [Refresh Classic Eye Drops] 1 drop BOTH EYES BID 08/18/16 [History] Atorvastatin Calcium [Lipitor] 20 mg PO HS 12/22/16 [History] Fluticasone Propionate Nasal [Flonase] 1 spr NS DAILY PRN 05/03/17 [History] Montelukast [Singulair] 10 mg PO DAILY 10/29/17 [History] Oxygen 3 l NS AD 10/29/17 [History] Lactobacillus Acidophilus [Acidophilus] 100 mg PO BID 01/17/18 [History] Warfarin [Coumadin] 3 mg PO SUMOTUSA 01/17/18 [History] Amiodarone [Cordarone] 200 mg PO DAILY 02/03/18 [History] Folic Acid/Vit Bcomp,C [Renal Vitamin Tablet] 0.8 mg PO DAILY 02/03/18 [History] Furosemide [Lasix] 40 mg PO DAILY 02/03/18 [History] Lidocaine/Prilocaine CREAM [Emla] 1 appl TP MOWEFR 02/03/18 [History] Loratadine [Allergy Relief] 10 mg PO DAILY 02/03/18 [History] Mirtazapine [Remeron] 15 mg PO HS 02/03/18 [History] Sevelamer [Renvela] 1,600 mg PO AD MDD See Comments. 02/03/18 [History] Warfarin [Coumadin] 4 mg PO THFR 02/03/18 [History] Albuterol Neb [Proventil Neb] 2.5 mg IH Q4H PRN 02/26/18 [History] Ascorbate Calcium [Vitamin C] 500 mg PO DAILY 02/26/18 [History] OxyCODONE/APAP 5/325 [Percocet 5/325 MG] 1 each PO Q6H PRN 02/26/18 [History] Pantoprazole Sodium [Protonix] 40 mg PO BID 02/26/18 [History] Vit C/Vit E AC/Lut/Copper/Zinc [Preservision Lutein Softgel] 1 each PO BID 02/26 [History] Vancomycin Oral Soln [Vancocin] 125 mg PO QID #94 03/02/18 [Rx] Allergies/Adverse Reactions: 3 Allergy/AdvReac Type Severity Reaction Status Date / Time Amoxicillin Allergy Swelling Verified 02/03/18 14:35 of Lip/Tongue/Throat Penicillins [PCN] Allergy Anaphylaxis Verified 02/03/18 14:35 venom-honey bee Allergy Anaphylaxis Verified 02/03/18 14:35 [bee venom (honey bee)] - Respiratory Orders Oxygen / L per min (3) Smoking Cessation: Smoking cessation has been advised. For more information, call the [place] Tobacco Quit Line at 4-789-CWTV-NOW. - Advance Directives Code Status: Full Code - Mobility Orders Other (As tolerated) CERTIFICATION: I certify that the transfer of the above named patient to an Extended Care Facility is necessary for the continuing treatment of the diagnosis listed. The above information is true and accurate reflection of patient's current condition. Confidential - Redisclosure prohibited without a patient's written consent.
[2018-03-02 11:13] VITALS: BP 116/70
--- NOTE | 2018-03-02 13:45 | Electrocardiograph Report ---
[address] [place], [place] [address] Test Date: 2018-02-26 Pat Name: Corey Yang Department: 103 Room: 2N06 Gender: M Development Representative: : 1940 Requested By: Charlie Mendoza Order Number: [id number] Reading MD: Anastasia Mota Measurements Intervals [place] Rate: 124 P: OR: 0 QRS: 147 QRSD: 98 T: 28 QT: 301 QTc: 374 Interpretive Statements ATRIAL FLUTTER/FIBRILLATION WITH RAPID VENTRICULAR RESPONSE SEPTAL MYOCARDIAL INFARCTION [40+ ms Q WAVE IN V1/V2], PROBABLY OLD LOW VOLTAGE LIMB LEADS Electronically Signed On 03-02-2018 13:43:44 EDT by Anastasia Mota
== END 2018-03-02 11:46 | DRG 871 ==
LOC: EMEROO 14:20 → 2NNU 14:20 → OBSVTOIN 18:29 → 2NNU 19:07
PROVIDERS: ADMIT Nurse Practitioner; ATTEND Internal Medicine

== ENCOUNTER 2018-04-15 16:06 | Inpatient (IN) ==
[2018-04-15] MEDS ORDERED: Naloxone 0.4 MG/ML INJ IVP PRN (22:22)
--- NOTE | 2018-04-15 22:28 | Internal Med History&Physical ---
Date of Encounter: 04/15/18 Time of Encounter: 07:00 Internal Medicine - H&P: HPI Chief complaint: hypotention History of present illness: Mr. Yang is a 77 year old male past medical history of end-stage renal disease on hemodialysis Sunday via left arm AV fistula who was sent from the hemodialysis unit for low blood pressure. The patient stated that he wake up and when he went to get his scheduled dialysis it was noted that his blood pressure is very low with reported systolic mid 80s, and he was sent to the ER for further Evaluation. in the ER the patient was treated with boluses isotonic fluid, the patient was transferred for further evaluation and manageme Past Med Surg Social Fam HX - Past Medical History Medical history: arthritis, atrial fibrillation, CHF, dialysis, GERD, hyperlipidemia, osteoporosis, renal disease, valvular heart disease, other Psychiatric history: no psych history - Past Surgical History Surgical History: appendectomy - Social History Smoking Status: Never smoker Smokeless Tobacco Status: No Alcohol use: none Drug use: none - Family History Mother Family Member Ethnicity: Non- Living Status: Hx Family Neurologic Disorders: Yes (Dementia) Father Living Status: Hx Family Cardiac Disorders: Yes (Heart Attack, HTN,) Internal Medicine - H&P: Meds Finasteride [Proscar] 5 mg PO DAILY 07/26/16 [History] Polyvinyl Alcohol/Povidone/Pf [Refresh Classic Eye Drops] 1 drop BOTH EYES BID 08/18/16 [History] Atorvastatin Calcium [Lipitor] 20 mg PO HS 12/22/16 [History] Fluticasone Propionate Nasal [Flonase] 1 spr NS DAILY PRN 05/03/17 [History] Montelukast [Singulair] 10 mg PO DAILY 10/29/17 [History] Oxygen 3 l NS AD 10/29/17 [History] Lactobacillus Acidophilus [Acidophilus] 100 mg PO BID 01/17/18 [History] Amiodarone [Cordarone] 200 mg PO DAILY 02/03/18 [History] Folic Acid/Vit Bcomp,C [Renal Vitamin Tablet] 0.8 mg PO DAILY 02/03/18 [History] Furosemide [Lasix] 40 mg PO DAILY 02/03/18 [History] Lidocaine/Prilocaine CREAM [Emla] 1 appl TP MOWEFR 02/03/18 [History] Loratadine [Allergy Relief] 10 mg PO DAILY 02/03/18 [History] Mirtazapine [Remeron] 15 mg PO HS 02/03/18 [History] Sevelamer [Renvela] 1,600 mg PO AD MDD See Comments. 02/03/18 [History] Albuterol Neb [Proventil Neb] 2.5 mg IH Q4H PRN 02/26/18 [History] Pantoprazole Sodium [Protonix] 40 mg PO BID 02/26/18 [History] Vit C/Vit E AC/Lut/Copper/Zinc [Preservision Lutein Softgel] 1 each PO BID 02/26 [History] Ondansetron HCl [Zofran] 4 mg PO Q4H PRN 04/16/18 [History] OxyCODONE/APAP 5/325 [Percocet 5/325 MG] 1 each PO Q6H PRN 4 Days #16 tablet [Rx] Dicyclomine [Bentyl] 10 mg PO DAILY 04/25/18 [History] 3 Allergy/AdvReac Type Severity Reaction Status Date / Time Amoxicillin Allergy Swelling Verified 04/25/18 08:42 of Lip/Tongue/Throat Penicillins [PCN] Allergy Anaphylaxis Verified 04/25/18 08:42 venom-honey bee Allergy Anaphylaxis Verified 04/25/18 08:42 [bee venom (honey bee)] All Systems PM: A 10-system review of systems was performed and is negative for pertinent findings except as documented above in the HPI. - Constitutional Constitutional: malaise, weakness, no chills, no fever(s), no night sweats - Cardiovascular Cardiovascular ROS IM: no chest pain, no diaphoresis, no dyspnea, no lightheadedness, no palpitations, no syncope - Respiratory Respiratory: no cough, no dyspnea, no wheezing, no excessive phlegm production - Gastrointestinal Gastrointestinal: no abdominal pain, no diarrhea, no hematemesis, no hematochezia, no melena, no nausea, no vomiting - Constitutional Vitals: Temp Pulse Resp BP Pulse Ox 97.4 F L 86 18 103/63 96 04/15/18 20:32 04/15/18 20:32 04/15/18 20:32 04/15/18 20:32 04/15/18 20:32 General appearance: Present: A&O X 3 - Head Head exam: Present: atraumatic, normocephalic - Neck Neck exam general surgery: Present: supple, trachea midline. Absent: lymphadenopathy - Respiratory Respiratory exam: Present: rhonchi. Absent: accessory muscle use, rales, wheezes - Cardiovascular Cardiovascular exam: Present: RRR, +S1, +S2. Absent: diastolic murmur, gallop, rubs, systolic murmur - GI/Abdominal GI/Abdominal exam: Present: normal bowel sounds, soft, no peritoneal signs. Absent: distended, tenderness - Extremities Exam Extremities exam: Present: warm, radial pulses palpable and symmetrical. Absent : calf tenderness, cyanotic, pedal edema Internal Med - H&P Results - Labs CBC & Chem 7: 04/21/18 07:07 04/21/18 07:07 - Assessment and plan (1) Hypotension Status: Acute Assessment and plan: the patient stated that being hypotensive prior to hemodialysis has been recurrent problem, may consider holding the blood pressure medication on the day of dialysis, albumin infusion during dialysis or starting midodrine 30 min prior to initiating hemodialysis, patient has history of congestive hear failure , we will obtain 2-D echo to rule out cardiac component. Qualifiers: Hypotension type: idiopathic hypotension Qualified Code(s): I95.0 - Idiopathic hypotension (2) Anemia in chronic kidney disease, on chronic dialysis Status: Chronic Assessment and plan: her hemoglobin target is 10-11, ESAs as per outpatient protocol (3) ESRD (end stage renal disease) on dialysis Status: Chronic Assessment and plan: We will cont HD (4) Chronic kidney disease-mineral and bone disorder Status: Acute Assessment and plan: low phos diet, continue phos binders (5) Volume overload Status: Acute Assessment and plan: We will consult Nephrology to arrange for HD Qualifiers: Qualified Code(s): E87.70 - Fluid overload, unspecified (6) Multiple myeloma Status: Acute Assessment and plan: history of multiple myeloma , stable Qualifiers: Multiple myeloma remission status: unspecified Qualified Code(s): C90.00 - Multiple myeloma not having achieved remission (7) CHF (congestive heart failure) Status: Acute Assessment and plan: We optimize fluid removal with HD Qualifiers: Heart failure chronicity: unspecified Qualified Code(s): I50.9 - Heart failure, unspecified (8) Clostridium difficile diarrhea Status: Acute Assessment and plan: the patient has history of chronic C. difficile colitis, we will continue oral vancomycin (9) Atrial fibrillation Status: Acute Assessment and plan: we will continue chronic anticoagulation with warfarin, check PT/INR. Qualifiers: Atrial fibrillation type: unspecified Qualified Code(s): I48.91 - Unspecified atrial fibrillation (10) DVT prophylaxis Status: Acute Assessment and plan: We will place SCDs - Time Spent With Patient Total time spent is greater than 50% in coordination of care (as documented) at patient's floor/unit and/or counseling patient:
[2018-04-15 23:12] LABS: INR 3.3; Prothrombin Time 36.1 Seconds (9.4-12.1)
[2018-04-15 23:14] LABS: Activated Partial Thrombo Time 41.7 Seconds (26.0-36.0)
[2018-04-16] MEDS ORDERED: Albuterol 2.5 MG/3 ML NEBULIZER IH PRN (04:02)
[2018-04-16] MEDS ORDERED: Fluticasone Propionate Nasal 50 MCG/SPRAY BOTTLE NS PRN (04:02)
[2018-04-16 04:46] LABS: Basophils # 0.1 K/mcL (0.0-0.2); Eosinophils # 0.8 K/mcL (0.0-0.6); Eosinophils % 12.1 %; Hemoglobin 10.5 g/dL (12.9-16.9); Immature Granulocytes % 0.2 % (0-4); Lymphocytes # 0.4 K/mcL (0.6-4.6); Lymphocytes % 6.1 %; Mean Corpuscular HGB Conc 33.9 g/dL (31.6-35.5); Mean Corpuscular Hemoglobin 29.7 pg (28.0-33.3); Mean Corpuscular Volume 87.6 fL (83.0-100.0); Monocytes # 1.2 K/mcL (0.0-1.3); Monocytes % 18.5 %; Platelet Count 257 K/mcL (140-400); Red Blood Count 3.54 M/mcL (4.19-5.50); Red Cell Distribution Width 18.6 % (11.5-14.5); Segmented Neutrophils % 61.1 %
[2018-04-16 05:10] LABS: Albumin 3.1 g/dL (3.5-5.7); Albumin/Globulin Ratio 1.3 (1.1-2.2); Bilirubin,Total 1.1 mg/dL (0.3-1.0); Calcium 8.2 mg/dL (8.6-10.3); Chol/HDL Ratio 1.6 (0-4.9); Globulin 2.3 g/dL (2.4-3.5); Magnesium 2.3 mg/dL (1.6-2.6); Potassium 4.7 mEq/L (3.5-5.1); Total Protein 5.4 g/dL (6.4-8.9)
[2018-04-16 05:12] LABS: Platelet Estimate Normal (Normal)
[2018-04-16] MEDS ORDERED: *HR* Heparin 5,000 UNIT/ML VIAL SQ SCH (06:00)
[2018-04-16] MEDS ORDERED: 0.9 % Sodium Chloride 250 ML IVC PRN (08:21)
--- NOTE | 2018-04-16 08:21 | Nephrology Consult Note ---
Date of Encounter: 04/16/18 Time of Encounter: 08:19 Assessment and Plan (1) ESRD (end stage renal disease) on dialysis Current Visit: No Status: Chronic Even though patient did not get dialysis yesterday he appears stable enough to wait and have HD tomorrow on his regularly scheduled day. Renal diet Strict I/Os-ordered Avoid nephrotoxins if possible (2) Hyperphosphatemia Current Visit: Yes Status: Acute Phos level 7.0-patient is normally very well controlled Renvela 800mg 2 tabs p.o. TID with meals-ordered (3) Hypotension Current Visit: Yes Status: Acute Patient's b/p always run low but he normally tolerates it well and is asymptomatic States he is feeling better now Qualifiers: Hypotension type: idiopathic hypotension Qualified Code(s): I95.0 - Idiopathic hypotension History of Present Illness - Reason for Consult Consult date: 04/16/18 - Chief Complaint ESRD on HD, hypotension - History of Present Illness Mr Yang is a 77 year old male well known to our practice with a PMH of arthritis, atrial fibrillation, CHF, GERD, ESRD on dialysis, andvalvuular heart disease who was sent from the [place] [facility] to the ED for low b/p. Patient did not get his HD treatment yesterday. States he is feeling better today. Past Med Surg Social Fam HX - Past Medical History Medical history: arthritis, atrial fibrillation, CHF, dialysis, GERD, hyperlipidemia, osteoporosis, renal disease, valvular heart disease, other Psychiatric history: no psych history - Past Surgical History Surgical History: appendectomy - Social History Smoking Status: Never smoker Smokeless Tobacco Status: No Alcohol use: none Drug use: none - Family History Mother Family Member Ethnicity: Non- Living Status: Hx Family Neurologic Disorders: Yes (Dementia) Father Living Status: Hx Family Cardiac Disorders: Yes (Heart Attack, HTN,) Medications and Allergies Finasteride [Proscar] 5 mg PO DAILY 07/26/16 [History] Metoprolol [Lopressor] 12.5 mg PO BID 07/26/16 [History] Polyvinyl Alcohol/Povidone/Pf [Refresh Classic Eye Drops] 1 drop BOTH EYES BID 08/18/16 [History] Atorvastatin Calcium [Lipitor] 20 mg PO HS 12/22/16 [History] Fluticasone Propionate Nasal [Flonase] 1 spr NS DAILY PRN 05/03/17 [History] Montelukast [Singulair] 10 mg PO DAILY 10/29/17 [History] Oxygen 3 l NS AD 10/29/17 [History] Lactobacillus Acidophilus [Acidophilus] 100 mg PO BID 01/17/18 [History] Warfarin [Coumadin] 3 mg PO DAILY 01/17/18 [History] Amiodarone [Cordarone] 200 mg PO DAILY 02/03/18 [History] Folic Acid/Vit Bcomp,C [Renal Vitamin Tablet] 0.8 mg PO DAILY 02/03/18 [History] Furosemide [Lasix] 40 mg PO DAILY 02/03/18 [History] Lidocaine/Prilocaine CREAM [Emla] 1 appl TP MOWEFR 02/03/18 [History] Loratadine [Allergy Relief] 10 mg PO DAILY 02/03/18 [History] Mirtazapine [Remeron] 15 mg PO HS 02/03/18 [History] Sevelamer [Renvela] 1,600 mg PO AD MDD See Comments. 02/03/18 [History] Albuterol Neb [Proventil Neb] 2.5 mg IH Q4H PRN 02/26/18 [History] Ascorbate Calcium [Vitamin C] 500 mg PO DAILY 02/26/18 [History] OxyCODONE/APAP 5/325 [Percocet 5/325 MG] 1 each PO Q6H PRN 02/26/18 [History] Pantoprazole Sodium [Protonix] 40 mg PO BID 02/26/18 [History] Vit C/Vit E AC/Lut/Copper/Zinc [Preservision Lutein Softgel] 1 each PO BID 02/26 [History] 3 Allergy/AdvReac Type Severity Reaction Status Date / Time Amoxicillin Allergy Swelling Verified 02/03/18 14:35 of Lip/Tongue/Throat Penicillins [PCN] Allergy Anaphylaxis Verified 02/03/18 14:35 venom-honey bee Allergy Anaphylaxis Verified 02/03/18 14:35 [bee venom (honey bee)] Review of Systems All Systems: reviewed and no additional remarkable complaints except as stated Constitutional: malaise, weakness Cardiovascular: no chest pain, no dyspnea Respiratory: no cough, no dyspnea Gastrointestinal: no nausea, no vomiting Exam - Vital Signs Vital signs: Initial Vital Signs Temp Pulse Resp BP Pulse Ox 97.7 F 78 18 95/61 95 04/15/18 17:55 04/15/18 17:55 04/15/18 17:55 04/15/18 17:55 04/15/18 17:55 Vital Signs - Last 8 Hours Temp Pulse Resp BP Pulse Ox 04/16/18 06:45 97.6 F 87 16 92/55 97 04/16/18 03:27 97.6 F 86 18 90/50 93 Intake and Output 04/15/18 04/16/18 04/16/18 23:59 07:59 15:59 Other: Weight 69.8 kg 69.8 kg Patient Weight 04/16/18 23:59 Weight 69.8 kg - General Appearance General appearance: chronically ill, frail EENT: ATNC, mucous membranes moist, hearing intact, vision intact Neck: supple Respiratory: clear Cardiology: no edema, normal S1, normal S2 - Dialysis Access Dialysis Vascular Access: Arteriovenous Fistula Gastrointestinal: no tenderness, no guarding Integumentary: warm and dry Neurologic: alert and oriented x3 Psychiatric: mood/affect appropriate, cooperative Results - Lab Results 04/16/18 04:15 04/16/18 04:15 Most recent lab results Calcium 8.2 mg/dL (8.6-10.3) L 04/16/18 04:15 Phosphorus 7.0 mg/dL (2.7-4.5) H 04/16/18 04:15 Magnesium 2.3 mg/dL (1.6-2.6) 04/16/18 04:15 Consult Discharge Plan - Plan Referrals: Adolfo Tobias DO [Primary Care Provider] -
[2018-04-16 08:34] LABS: INR 3.1; Prothrombin Time 33.7 Seconds (9.4-12.1)
[2018-04-16] MEDS ORDERED: Albumin 25% 25gram/100mL 25 GM/100 ML IV.SOLN IVPB ONE (10:00)
[2018-04-16] MEDS ORDERED: *HR* Heparin 5,000 UNIT/ML VIAL ONE (10:03)
[2018-04-16] MEDS ORDERED: Albumin 25% 12.5gm/50mL 25.0 GM/100 ML IV.SOLN ONE (10:04)
[2018-04-16] MEDS ORDERED: 0.9 % Sodium Chloride 2,000 ML ONE (10:04)
[2018-04-16 10:52] LABS: Hepatitis B Surface Antigen Nonreactive (Nonreactive)
[2018-04-16] MEDS: *HR* Amiodarone 200 MG TABLET PO SCH (13:57)
[2018-04-16] MEDS: Lactobacillus 1 EACH CAP.SPRINK PO SCH ×2 (13:57→22:11)
[2018-04-16] MEDS: Finasteride 5 MG TABLET PO SCH (13:57)
[2018-04-16] MEDS: Ascorbic Acid 500 MG TABLET PO SCH (13:58)
[2018-04-16] MEDS: Folic Acid 1 MG TABLET PO SCH (13:58)
[2018-04-16] MEDS ORDERED: *HR* Warfarin 1 MG TABLET PO ONE (18:00)
[2018-04-16] MEDS ORDERED: Warfarin perPT PO PRN (18:00)
--- NOTE | 2018-04-16 18:08 | Internal Med Progress Note ---
Date of Encounter: 04/16/18 Time of Encounter: 11:00 - Assessment and plan (1) Hypotension Current Visit: Yes Status: Acute Assessment and plan: Apparently patient at baseline has low blood pressures Beta colton continues to be held Will continue to monitor Qualifiers: Hypotension type: idiopathic hypotension Qualified Code(s): I95.0 - Idiopathic hypotension (2) ESRD (end stage renal disease) on dialysis Current Visit: No Status: Chronic Assessment and plan: Nephrology following with recommendations for hemodialysis today as well as tomorrow (3) CHF (congestive heart failure) Current Visit: No Status: Acute Assessment and plan: Echocardiogram pending Qualifiers: Heart failure chronicity: unspecified Qualified Code(s): I50.9 - Heart failure, unspecified (4) Multiple myeloma Current Visit: No Status: Acute Assessment and plan: history of multiple myeloma , stable Qualifiers: Multiple myeloma remission status: unspecified Qualified Code(s): C90.00 - Multiple myeloma not having achieved remission (5) Anemia in chronic kidney disease, on chronic dialysis Current Visit: No Status: Chronic Assessment and plan: her hemoglobin target is 10-11, ESAs as per outpatient protocol (6) Atrial fibrillation Current Visit: Yes Status: Acute Assessment and plan: Heart rate controlled even know beta colton being held due to hypotension as above Will continue to monitor Will continue chronic anticoagulation with warfarin Qualifiers: Atrial fibrillation type: unspecified Qualified Code(s): I48.91 - Unspecified atrial fibrillation (7) Clostridium difficile diarrhea Current Visit: No Status: Acute Assessment and plan: the patient has history of chronic C. difficile colitis, we will continue oral vancomycin (8) DVT prophylaxis Current Visit: No Status: Acute Assessment and plan: Continue home dose of Coumadin - Time Spent With Patient Total time spent is greater than 50% in coordination of care (as documented) at patient's floor/unit and/or counseling patient: - Subjective Interval history: Patient's blood pressures are low but stable He is in not acute distress and no acute events overnight - Constitutional Vitals: Temp Pulse Resp BP Pulse Ox 97.6 F 93 22 105/62 98 04/16/18 15:17 04/16/18 15:17 04/16/18 15:17 04/16/18 15:17 04/16/18 15:17 General appearance: Present: A&O X 3, no acute distress - Respiratory Respiratory exam: Present: CTAB. Absent: accessory muscle use, rales, rhonchi, wheezes - Cardiovascular Cardiovascular exam: Present: RRR, +S1, +S2. Absent: diastolic murmur, gallop, rubs, systolic murmur Internal Medicine: Result - Labs CBC & Chem 7: 04/16/18 04:15 04/16/18 04:15 Labs: Short CBC 04/16/18 Range/Units 04:15 WBC 6.5 (4.3-11.1) K/mcL Hgb 10.5 L (12.9-16.9) g/dL Hct 31.0 L (37.5-50.1) % Plt Count 257 (140-400) K/mcL Neutrophils # 4.0 (1.6-8.9) K/mcL BMP 04/16/18 04:15 Sodium 137 Potassium 4.7 Chloride 98 Carbon Dioxide 25 BUN 107 H Creatinine 5.74 H Glucose 77 Calcium 8.2 L Cardiac Enzymes 04/15/18 04/16/18 04/16/18 Range/Units 22:42 04:15 10:15 Troponin I 0.05 H* 0.07 H* 0.06 H* (< 0.04) ng/mL Liver Function 04/16/18 Range/Units 04:15 Total Bilirubin 1.1 H (0.3-1.0) mg/dL AST 24 (13-39) Units/L ALT 30 (7-52) Units/L Alkaline Phosphatase 1439 H (34-104) Units/L Albumin 3.1 L (3.5-5.7) g/dL - ABG Interpretation ABG results: PT/INR, D-dimer PT 33.7 Seconds (9.4-12.1) H 04/16/18 08:14 - VTE Documentation of Mechanical Device: Graduated compression elastic hosiery Consult Discharge Plan - Plan Referrals: Adolfo Tobias DO [Primary Care Provider] -
[2018-04-17 04:12] LABS: Hepatitis B Surface Antibody 0.19 mIU/mL
[2018-04-17] MEDS ORDERED: Albumin 25% 12.5gm/50mL 25.0 GM/100 ML IV.SOLN ONE (06:12)
[2018-04-17] MEDS ORDERED: 0.9 % Sodium Chloride 2,000 ML ONE (06:12)
[2018-04-17] MEDS ORDERED: 0.9 % Sodium Chloride 250 ML IVC PRN (06:13)
[2018-04-17] MEDS ORDERED: 0.9 % Sodium Chloride 1,000 ML PRIME SCH (06:15)
[2018-04-17] MEDS ORDERED: Albumin 25% 25gram/100mL 25 GM/100 ML IV.SOLN IVPB PRN (06:17)
[2018-04-17 07:12] LABS: Hematocrit 32.1 % (37.5-50.1); Mean Corpuscular HGB Conc 34.3 g/dL (31.6-35.5); Mean Corpuscular Hemoglobin 30.2 pg (28.0-33.3); Mean Corpuscular Volume 88.2 fL (83.0-100.0); Mean Platelet Volume 12.2 fL (9.4-12.4); Platelet Count 237 K/mcL (140-400); Red Blood Count 3.64 M/mcL (4.19-5.50); Red Cell Distribution Width 18.6 % (11.5-14.5)
[2018-04-17 07:18] LABS: INR 2.4; Prothrombin Time 26.5 Seconds (9.4-12.1)
[2018-04-17 07:35] LABS: Calcium 8.5 mg/dL (8.6-10.3); Potassium 4.2 mEq/L (3.5-5.1)
--- NOTE | 2018-04-17 10:15 | Nephrology Progress Note ---
Date of Encounter: 04/17/18 Time of Encounter: 08:40 - Assessment and Plan (1) ESRD (end stage renal disease) on dialysis Current Visit: No Status: Chronic Dialysis note: VSS and tolerating HD for clearance and ongoing UF. He had HD yesterday to assist with more UF d/t his edema/dyspena. Of note, his Alk phos was very elevated and so at some point, I would recommend he see Hematology for follow up re: Amyloidosis/Myeloma. Subjective Principal diagnosis: ESRD Interval history: Pt was s/e while on HD. He did not affirm N/V/D or cramping with dialysis. Objective - Vital Signs Vital signs: Vital Signs Temp Pulse Resp BP Pulse Ox 04/17/18 08:50 99/61 04/17/18 08:35 104/56 04/17/18 08:20 98/56 04/17/18 08:05 102/55 04/17/18 07:50 98/54 04/17/18 07:35 99/56 04/17/18 07:20 97/58 04/17/18 07:05 95/61 04/17/18 06:50 101/57 04/17/18 06:35 103/62 04/17/18 06:20 97.6 F 15 99/61 04/17/18 03:15 97.6 F 84 16 87/44 95 04/17/18 00:11 97.6 F 80 16 88/41 98 04/16/18 20:18 97.9 F 86 17 104/63 97 04/16/18 15:17 97.6 F 93 22 105/62 98 04/16/18 12:55 97.4 F L 17 97/51 04/16/18 12:45 95/50 04/16/18 12:30 97/54 04/16/18 12:15 91/45 04/16/18 12:00 90/47 04/16/18 11:45 95/54 04/16/18 11:30 89/57 04/16/18 11:15 91/63 04/16/18 11:00 98/53 04/16/18 10:45 98/55 04/16/18 10:30 90/59 04/16/18 10:15 94/54 Intake and Output 04/16/18 04/17/18 04/17/18 23:59 07:59 15:59 Intake Total 240 / 240 840 / 840 Output Total 0 / 0 Balance 240 / 240 840 / 840 Intake: Oral 240 / 240 240 / 240 Intake, Rinseback and Flushes 600 / 600 Output: Urine 0 / 0 Other: Meal Dinner Breakfast Percent of Meal Consumed 75% 50% Stool Size Moderate Stool Consistency loose Stool Color Brown # Bowel Movements 1 Weight 70.5 kg Blood Glucose* 77 Hemodialysis Net Fluid Removed 1122 1869 (mL) Patient Weight 04/17/18 23:59 Weight 70.5 kg - General Appearance General appearance: Present: well-nourished, appears started age, chronically ill, fatigue, frail EENT: Present: ATNC, PERRL, mucous membranes moist Neck: Present: supple Respiratory: Present: clear Cardiology: Present: edema (ankle 1+ pitting edema b/l), regular rate, regular rhythm, normal S1, normal S2 Dialysis Vascular Access: Arteriovenous Fistula thrill: Yes bruit: Yes Gastrointestinal: Present: normoactive bowel sounds, no tenderness, no guarding Integumentary: Present: warm and dry, ecchymotic Neurologic: Present: no focal deficit, no asterixis, alert and oriented x3 Musculoskeletal: Present: no cyanosis, no clubbing Psychiatric: Present: mood/affect appropriate, cooperative - Lab 04/17/18 06:32 04/17/18 06:32 Most recent lab results Calcium 8.5 mg/dL (8.6-10.3) L 04/17/18 06:32 Phosphorus 7.0 mg/dL (2.7-4.5) H 04/16/18 04:15 Magnesium 2.3 mg/dL (1.6-2.6) 04/16/18 04:15 - VTE Documentation of Mechanical Device: Graduated compression elastic hosiery Consult Discharge Plan - Plan Referrals: Adolfo Tobias DO [Primary Care Provider] -
[2018-04-17] MEDS: *HR* Amiodarone 200 MG TABLET PO SCH (12:19)
[2018-04-17] MEDS: Folic Acid 1 MG TABLET PO SCH (12:19)
[2018-04-17] MEDS: Lactobacillus 1 EACH CAP.SPRINK PO SCH ×2 (12:19→20:45)
[2018-04-17] MEDS: Finasteride 5 MG TABLET PO SCH (12:19)
[2018-04-17] MEDS: Ascorbic Acid 500 MG TABLET PO SCH (12:19)
[2018-04-17] MEDS ORDERED: Ondansetron 4 MG/2 ML VIAL IVP PRN (17:16)
[2018-04-17] MEDS ORDERED: *HR* Warfarin 2 MG TABLET PO ONE (18:00)
--- NOTE | 2018-04-17 19:28 | Internal Med Progress Note ---
Date of Encounter: 04/17/18 Time of Encounter: 11:00 - Assessment and plan (1) Hypotension Current Visit: Yes Status: Acute Assessment and plan: Apparently patient at baseline has low blood pressures Beta colton continues to be held Will continue to monitor Qualifiers: Hypotension type: idiopathic hypotension Qualified Code(s): I95.0 - Idiopathic hypotension (2) ESRD (end stage renal disease) on dialysis Current Visit: No Status: Chronic Assessment and plan: Nephrology following with recommendations for hemodialysis (3) CHF (congestive heart failure) Current Visit: No Status: Acute Assessment and plan: Echocardiogram showed LVEF of 55% indeterminate diastolic function Qualifiers: Heart failure chronicity: unspecified Qualified Code(s): I50.9 - Heart failure, unspecified (4) Multiple myeloma Current Visit: No Status: Acute Assessment and plan: history of multiple myeloma, stable Consult hematology oncology and appreciate recommendations Qualifiers: Multiple myeloma remission status: unspecified Qualified Code(s): C90.00 - Multiple myeloma not having achieved remission (5) Anemia in chronic kidney disease, on chronic dialysis Current Visit: No Status: Chronic Assessment and plan: her hemoglobin target is 10-11, ESAs as per outpatient protocol (6) Atrial fibrillation Current Visit: Yes Status: Acute Assessment and plan: Heart rate controlled even know beta colton being held due to hypotension as above Will continue to monitor Will continue chronic anticoagulation with warfarin Qualifiers: Atrial fibrillation type: unspecified Qualified Code(s): I48.91 - Unspecified atrial fibrillation (7) Clostridium difficile diarrhea Current Visit: No Status: Acute Assessment and plan: the patient has history of chronic C. difficile colitis, we will continue oral vancomycin (8) DVT prophylaxis Current Visit: No Status: Acute Assessment and plan: Continue home dose of Coumadin - Time Spent With Patient Total time spent is greater than 50% in coordination of care (as documented) at patient's floor/unit and/or counseling patient: - Subjective Interval history: Patient's blood pressures are low but stable He is in not acute distress and no acute events overnight - Constitutional Vitals: Temp Pulse Resp BP Pulse Ox 98.3 F 87 16 105/67 98 04/17/18 16:09 04/17/18 16:09 04/17/18 16:09 04/17/18 16:09 04/17/18 16:09 General appearance: Present: A&O X 3, no acute distress - Respiratory Respiratory exam: Present: CTAB. Absent: accessory muscle use, rales, rhonchi, wheezes - Cardiovascular Cardiovascular exam: Present: RRR, +S1, +S2. Absent: diastolic murmur, gallop, rubs, systolic murmur Internal Medicine: Result - Labs CBC & Chem 7: 04/17/18 06:32 04/17/18 06:32 Labs: Short CBC 04/17/18 Range/Units 06:32 WBC 6.7 (4.3-11.1) K/mcL Hgb 11.0 L (12.9-16.9) g/dL Hct 32.1 L (37.5-50.1) % Plt Count 237 (140-400) K/mcL BMP 04/17/18 06:32 Sodium 137 Potassium 4.2 Chloride 97 L Carbon Dioxide 26 BUN 74 H Creatinine 4.89 H Glucose 61 L Calcium 8.5 L - ABG Interpretation ABG results: PT/INR, D-dimer PT 26.5 Seconds (9.4-12.1) H 04/17/18 06:32 - Impressions Impressions Echocardiogram 04/16/18 04:29 Impressions: LVEF 55%. Normal LV chamber size, wall thickness and function. Indeterminate diastolic function. Mildly dilated and hypokinetic right ventricle. Mild mitral regurgitation. Mild-moderate tricuspid regurgitation. No pulmonary hypertension. Left Ventricular Wall Motion: Rest Echo Findings All wall segments showed normal motion. Findings: Study Quality * Technically adequate exam. ECG Findings * Normal sinus rhythm. Left Ventricle * LVEF 55%. * Normal LV chamber size, wall thickness and function. * Indeterminate diastolic function. * Atypical septal motion possibly due to a bundle branch block. Right Ventricle * Mildly dilated and hypokinetic right ventricle. Left Atrium * Mildly dilated left atrium. Right Atrium * Moderately dilated right atrium. Interatrial Septum * Interatrial septum not well evaluated. Aortic Valve * Trileaflet aortic valve. * Mildly calcified aortic valve leaflets. * Trace aortic regurgitation. * No aortic stenosis. Mitral Valve * Mildly thickened mitral valve leaflets. * Mild mitral regurgitation. * No mitral stenosis. Tricuspid Valve * Normal tricuspid valve structure. * Mild-moderate tricuspid regurgitation. * No pulmonary hypertension. Pulmonic Valve * Normal pulmonic valve structure and function. * No pulmonic regurgitation. Aorta * Normally sized aortic root. Pericardium * There is a trivial pericardial effusion present. IVC * Normal IVC dimensions and inspiratory collapse. Pulmonary Artery * Normal visualized portions of the main pulmonary artery. - VTE Documentation of Mechanical Device: Graduated compression elastic hosiery Consult Discharge Plan - Plan Referrals: Adolfo Tobias DO [Primary Care Provider] -
[2018-04-18 05:13] LABS: Mean Corpuscular Volume 87.5 fL (83.0-100.0)
[2018-04-18 05:19] LABS: Calcium 8.5 mg/dL (8.6-10.3)
[2018-04-18 05:26] LABS: INR 2.3; Prothrombin Time 24.7 Seconds (9.4-12.1)
[2018-04-18 05:29] LABS: Hematocrit 30.2 % (37.5-50.1); Hemoglobin 10.2 g/dL (12.9-16.9); Mean Corpuscular HGB Conc 33.8 g/dL (31.6-35.5); Mean Corpuscular Hemoglobin 29.6 pg (28.0-33.3); Platelet Count 214 K/mcL (140-400); Red Blood Count 3.45 M/mcL (4.19-5.50); Red Cell Distribution Width 18.5 % (11.5-14.5)
[2018-04-18] MEDS: Finasteride 5 MG TABLET PO SCH (08:07)
[2018-04-18] MEDS: Lactobacillus 1 EACH CAP.SPRINK PO SCH ×2 (08:07→20:26)
[2018-04-18] MEDS: Ascorbic Acid 500 MG TABLET PO SCH (08:07)
[2018-04-18] MEDS: Folic Acid 1 MG TABLET PO SCH (08:07)
[2018-04-18] MEDS: *HR* Amiodarone 200 MG TABLET PO SCH (08:07)
--- NOTE | 2018-04-18 09:33 | Nephrology Progress Note ---
Date of Encounter: 04/18/18 Time of Encounter: 09:30 - Assessment and Plan (1) ESRD (end stage renal disease) on dialysis Current Visit: No Status: Chronic Plan for HD tomorrow Continue renal diet Avoid nephrotoxins (2) Hyperphosphatemia Current Visit: Yes Status: Acute Continue Renvela (3) Hypotension Current Visit: Yes Status: Acute Stable Patient's b/p normally runs low Qualifiers: Hypotension type: idiopathic hypotension Qualified Code(s): I95.0 - Idiopathic hypotension Subjective Principal diagnosis: ESRD Interval history: Patient seen and examined. Feeling well. Objective - Vital Signs Vital signs: Vital Signs Temp Pulse Resp BP Pulse Ox 04/18/18 07:03 97.7 F 99 16 129/78 94 04/18/18 05:37 98.3 F 96 18 104/64 94 04/18/18 00:25 97.9 F 87 18 117/63 96 04/17/18 20:00 98.2 F 94 18 99/54 98 04/17/18 16:09 98.3 F 87 16 105/67 98 04/17/18 10:36 97.4 F L 90 16 110/71 98 04/17/18 10:05 97.5 F L 17 101/62 04/17/18 09:50 95/63 04/17/18 09:35 97/58 Intake and Output 04/17/18 04/18/18 04/18/18 23:59 07:59 15:59 Intake Total 120 / 120 240 / 240 Balance 120 / 120 240 / 240 Intake: Oral 120 / 120 240 / 240 Other: Meal Dinner Breakfast Percent of Meal Consumed 5% 95% Stool Size Small Large Small Stool Consistency liquid loose loose soft soft liquid Stool Characteristics Normal for Patient Mucoid Seedy Stool Color Brown Brown Brown Yellow Bright Red Blood # Urine Diapers 1 # Bowel Movement Diapers 1 1 1 - General Appearance General appearance: Present: cachectic, frail EENT: Present: ATNC, mucous membranes moist, hearing intact, vision intact Neck: Present: supple Cardiology: Present: no edema, regular rate, regular rhythm Dialysis Vascular Access: Arteriovenous Fistula Gastrointestinal: Present: no tenderness, no guarding Integumentary: Present: warm and dry Neurologic: Present: alert and oriented x3 Psychiatric: Present: mood/affect appropriate, cooperative - Lab 04/18/18 04:29 04/18/18 04:29 Most recent lab results Calcium 8.5 mg/dL (8.6-10.3) L 04/18/18 04:29 Phosphorus 7.0 mg/dL (2.7-4.5) H 04/16/18 04:15 Magnesium 2.3 mg/dL (1.6-2.6) 04/16/18 04:15 - VTE Documentation of Mechanical Device: Graduated compression elastic hosiery Consult Discharge Plan - Plan Referrals: Adolfo Tobias DO [Primary Care Provider] -
[2018-04-18 12:39] LABS: Albumin 3.6 g/dL (3.5-5.7); Albumin/Globulin Ratio 1.6 (1.1-2.2); Bilirubin,Direct 1.2 mg/dL (0.0-0.2); Bilirubin,Indirect 0.8 mg/dL (0.0-1.2); Globulin 2.2 g/dL (2.4-3.5); Total Protein 5.8 g/dL (6.4-8.9)
--- NOTE | 2018-04-18 16:24 | Oncology Inp Consult Note ---
<Sheryl Worthington - Last Filed: 04/18/18 17:01> Date of Encounter: 04/18/18 - Data of Consult Requesting Physician: John Clarke Primary Care Provider: Adolfo Tobias DO - Consult Narrative History of present illness: PAtient apperas frail, no Rx was offered at last clinic visit with Dr Serrano. His restaging labs are being done. He will f/u in clinic for further recommendations. I examined this patient and my medical decision-making was reviewed with the Advanced Practice Nurse, Sheridan Dominguez. I agree with the documented findings, disposition and treatment plan as described except to the extent set forth below. Medications and Allergies Finasteride [Proscar] 5 mg PO DAILY 07/26/16 [History] Metoprolol [Lopressor] 12.5 mg PO BID 07/26/16 [History] Polyvinyl Alcohol/Povidone/Pf [Refresh Classic Eye Drops] 1 drop BOTH EYES BID 08/18/16 [History] Atorvastatin Calcium [Lipitor] 20 mg PO HS 12/22/16 [History] Fluticasone Propionate Nasal [Flonase] 1 spr NS DAILY PRN 05/03/17 [History] Montelukast [Singulair] 10 mg PO DAILY 10/29/17 [History] Oxygen 3 l NS AD 10/29/17 [History] Lactobacillus Acidophilus [Acidophilus] 100 mg PO BID 01/17/18 [History] Amiodarone [Cordarone] 200 mg PO DAILY 02/03/18 [History] Folic Acid/Vit Bcomp,C [Renal Vitamin Tablet] 0.8 mg PO DAILY 02/03/18 [History] Furosemide [Lasix] 40 mg PO DAILY 02/03/18 [History] Lidocaine/Prilocaine CREAM [Emla] 1 appl TP MOWEFR 02/03/18 [History] Loratadine [Allergy Relief] 10 mg PO DAILY 02/03/18 [History] Mirtazapine [Remeron] 15 mg PO HS 02/03/18 [History] Sevelamer [Renvela] 1,600 mg PO AD MDD See Comments. 02/03/18 [History] Albuterol Neb [Proventil Neb] 2.5 mg IH Q4H PRN 02/26/18 [History] OxyCODONE/APAP 5/325 [Percocet 5/325 MG] 1 each PO Q6H PRN 02/26/18 [History] Pantoprazole Sodium [Protonix] 40 mg PO BID 02/26/18 [History] Vit C/Vit E AC/Lut/Copper/Zinc [Preservision Lutein Softgel] 1 each PO BID 02/26 [History] Ondansetron HCl [Zofran] 4 mg PO Q4H PRN 04/16/18 [History] Vancomycin Oral Soln [Firvanq] 125 mg PO Q72H 04/16/18 [History] Warfarin [Coumadin] 2 mg PO DAILY 04/16/18 [History] 3 Allergy/AdvReac Type Severity Reaction Status Date / Time Amoxicillin Allergy Swelling Verified 02/03/18 14:35 of Lip/Tongue/Throat Penicillins [PCN] Allergy Anaphylaxis Verified 02/03/18 14:35 venom-honey bee Allergy Anaphylaxis Verified 02/03/18 14:35 [bee venom (honey bee)] Oncology - Exam - Constitutional Vitals: Temp Pulse Resp BP Pulse Ox 97.9 F 91 18 121/47 98 04/18/18 16:25 04/18/18 16:25 04/18/18 16:25 04/18/18 16:25 04/18/18 16:25 Oncology - Results Labs: 04/18/18 04/18/18 04/18/18 12:06 04:29 04:29 WBC 6.1 RBC 3.45 L Hgb 10.2 L Hct 30.2 L MCV 87.5 MCH 29.6 MCHC 33.8 RDW 18.5 H Plt Count 214 MPV 12.0 Immature Gran % Seg Neutrophils % Lymphocytes % Monocytes % Eosinophils % Basophils % Neutrophils # Lymphocytes # Monocytes # Eosinophils # Basophils # Platelet Estimate PT INR APTT Sodium 137 Potassium 4.0 Chloride 97 L Carbon Dioxide 30 H BUN 48 H Creatinine 3.89 H Est GFR ( Amer) 18 L Est GFR (Non-Af Amer) 15 L BUN/Creatinine Ratio 12 Glucose 71 POC Glucose Calculated Osmolality 295 Calcium 8.5 L Phosphorus Magnesium Total Bilirubin 2.0 H Direct Bilirubin 1.2 H Indirect Bilirubin 0.8 AST 32 ALT 29 Alkaline Phosphatase 1485 H Troponin I Serum Total Protein 5.8 L Albumin 3.6 Globulin 2.2 L Albumin/Globulin Ratio 1.6 Triglycerides Cholesterol LDL Cholesterol, Calc VLDL Cholesterol, Calc HDL Cholesterol Cholesterol/HDL Ratio Hep Bs Antigen Hep Bs Antibody 04/18/18 04/17/18 04/17/18 04:29 07:56 06:32 WBC RBC Hgb Hct MCV MCH MCHC RDW Plt Count MPV Immature Gran % Seg Neutrophils % Lymphocytes % Monocytes % Eosinophils % Basophils % Neutrophils # Lymphocytes # Monocytes # Eosinophils # Basophils # Platelet Estimate PT 24.7 H INR 2.3 APTT Sodium 137 Potassium 4.2 Chloride 97 L Carbon Dioxide 26 BUN 74 H Creatinine 4.89 H Est GFR ( Amer) 14 L Est GFR (Non-Af Amer) 12 L BUN/Creatinine Ratio 15 Glucose 61 L POC Glucose 77 Calculated Osmolality 304 H Calcium 8.5 L Phosphorus Magnesium Total Bilirubin Direct Bilirubin Indirect Bilirubin AST ALT Alkaline Phosphatase Troponin I Serum Total Protein Albumin Globulin Albumin/Globulin Ratio Triglycerides Cholesterol LDL Cholesterol, Calc VLDL Cholesterol, Calc HDL Cholesterol Cholesterol/HDL Ratio Hep Bs Antigen Hep Bs Antibody 04/17/18 04/17/18 04/16/18 06:32 06:32 20:16 WBC 6.7 RBC 3.64 L Hgb 11.0 L Hct 32.1 L MCV 88.2 MCH 30.2 MCHC 34.3 RDW 18.6 H Plt Count 237 MPV 12.2 Immature Gran % Seg Neutrophils % Lymphocytes % Monocytes % Eosinophils % Basophils % Neutrophils # Lymphocytes # Monocytes # Eosinophils # Basophils # Platelet Estimate PT 26.5 H INR 2.4 APTT Sodium Potassium Chloride Carbon Dioxide BUN Creatinine Est GFR ( Amer) Est GFR (Non-Af Amer) BUN/Creatinine Ratio Glucose POC Glucose 101 H Calculated Osmolality Calcium Phosphorus Magnesium Total Bilirubin Direct Bilirubin Indirect Bilirubin AST ALT Alkaline Phosphatase Troponin I Serum Total Protein Albumin Globulin Albumin/Globulin Ratio Triglycerides Cholesterol LDL Cholesterol, Calc VLDL Cholesterol, Calc HDL Cholesterol Cholesterol/HDL Ratio Hep Bs Antigen Hep Bs Antibody 04/16/18 04/16/18 04/16/18 10:15 09:13 08:14 WBC RBC Hgb Hct MCV MCH MCHC RDW Plt Count MPV Immature Gran % Seg Neutrophils % Lymphocytes % Monocytes % Eosinophils % Basophils % Neutrophils # Lymphocytes # Monocytes # Eosinophils # Basophils # Platelet Estimate PT 33.7 H INR 3.1 APTT Sodium Potassium Chloride Carbon Dioxide BUN Creatinine Est GFR ( Amer) Est GFR (Non-Af Amer) BUN/Creatinine Ratio Glucose POC Glucose Calculated Osmolality Calcium Phosphorus Magnesium Total Bilirubin Direct Bilirubin Indirect Bilirubin AST ALT Alkaline Phosphatase Troponin I 0.06 H* Serum Total Protein Albumin Globulin Albumin/Globulin Ratio Triglycerides Cholesterol LDL Cholesterol, Calc VLDL Cholesterol, Calc HDL Cholesterol Cholesterol/HDL Ratio Hep Bs Antigen Nonreactive Hep Bs Antibody 0.19 04/16/18 04/16/18 04/16/18 04:15 04:15 04:15 WBC 6.5 RBC 3.54 L Hgb 10.5 L Hct 31.0 L MCV 87.6 MCH 29.7 MCHC 33.9 RDW 18.6 H Plt Count 257 MPV 12.0 Immature Gran % 0.2 Seg Neutrophils % 61.1 Lymphocytes % 6.1 Monocytes % 18.5 Eosinophils % 12.1 Basophils % 2.0 Neutrophils # 4.0 Lymphocytes # 0.4 L Monocytes # 1.2 Eosinophils # 0.8 H Basophils # 0.1 Platelet Estimate Normal PT INR APTT Sodium 137 Potassium 4.7 Chloride 98 Carbon Dioxide 25 BUN 107 H Creatinine 5.74 H Est GFR ( Amer) 12 L Est GFR (Non-Af Amer) 10 L BUN/Creatinine Ratio 19 Glucose 77 POC Glucose Calculated Osmolality 316 H Calcium 8.2 L Phosphorus 7.0 H Magnesium 2.3 Total Bilirubin 1.1 H Direct Bilirubin Indirect Bilirubin AST 24 ALT 30 Alkaline Phosphatase 1439 H Troponin I 0.07 H* Serum Total Protein 5.4 L Albumin 3.1 L Globulin 2.3 L Albumin/Globulin Ratio 1.3 Triglycerides 44 Cholesterol 112 LDL Cholesterol, Calc 35 VLDL Cholesterol, Calc 9 HDL Cholesterol 68 H Cholesterol/HDL Ratio 1.6 Hep Bs Antigen Hep Bs Antibody 04/15/18 04/15/18 22:42 22:42 WBC RBC Hgb Hct MCV MCH MCHC RDW Plt Count MPV Immature Gran % Seg Neutrophils % Lymphocytes % Monocytes % Eosinophils % Basophils % Neutrophils # Lymphocytes # Monocytes # Eosinophils # Basophils # Platelet Estimate PT 36.1 H INR 3.3 APTT 41.7 H Sodium Potassium Chloride Carbon Dioxide BUN Creatinine Est GFR ( Amer) Est GFR (Non-Af Amer) BUN/Creatinine Ratio Glucose POC Glucose Calculated Osmolality Calcium Phosphorus Magnesium Total Bilirubin Direct Bilirubin Indirect Bilirubin AST ALT Alkaline Phosphatase Troponin I 0.05 H* Serum Total Protein Albumin Globulin Albumin/Globulin Ratio Triglycerides Cholesterol LDL Cholesterol, Calc VLDL Cholesterol, Calc HDL Cholesterol Cholesterol/HDL Ratio Hep Bs Antigen Hep Bs Antibody Consult Discharge Plan - Plan Referrals: Adolfo Tobias DO [Primary Care Provider] - <Sheridan Dominguez - Last Filed: 04/19/18 10:06> Date of Encounter: 04/18/18 Time of Encounter: 12:00 Assessment and Plan (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 Previously off all treatments Light chain ratio was normal at 1.62 in July 2017. He appears to have been lost to follow up since this time. Will re-establish patient with Dr. Serrano, will plan to review staging labs at follow up as this will take about 5 days to result. Ordered SPEP and serum free kappa light chain for AM. Elevated Alk Phos at 1485-this appears chronic in nature and could be secondary to renal failure/dialysis-Renvela per nephrology Will order GGT and bone specific alk phos. Vit D 30, calcium normal, total bili slightly elevated at 2 May consider skeletal survey which can be done on outpatient basis. ESRD- on HD- DEE DEE per nephrology Please refer to Dr. Garcia's attestation below for additional details. - Data of Consult Patient: known to practice within the last 3 years Consult date: 04/18/18 Requesting Physician: John Clarke Primary Care Provider: Adolfo Tobias DO - Consult Narrative Reason for consult: Light chain amyloidosis History of present illness: Mr. Yang is a 77 year old male with Light chain amyloidosis-initially treated with CyBorD chemotherapy cycle 1 on 03/24/2016-He had excellent response with normalization of light chain and followed with maintenance Velcade. Currently off all treatments. Most prior light chain ratio was normal at 1.62 in July 2017. ESRD- on HD. Presented to [facility] for further evaluation of hypotension found during dialysis. Past Med Surg Social Fam HX - Past Medical History Medical history: arthritis, atrial fibrillation, CHF, dialysis, GERD, hyperlipidemia, osteoporosis, renal disease, valvular heart disease, other Psychiatric history: no psych history - Past Surgical History Surgical History: appendectomy - Social History Smoking Status: Never smoker Smokeless Tobacco Status: No Alcohol use: none Drug use: none - Family History Mother Family Member Ethnicity: Non- Living Status: Hx Family Neurologic Disorders: Yes (Dementia) Father Living Status: Hx Family Cardiac Disorders: Yes (Heart Attack, HTN,) Oncology - Exam - Constitutional Vitals: Temp Pulse Resp BP Pulse Ox 98.2 F 96 22 97/63 97 04/18/18 11:25 04/18/18 11:25 04/18/18 11:25 04/18/18 11:25 04/18/18 11:25 Oncology - Results Labs: 04/18/18 04/18/18 04/18/18 12:06 04:29 04:29 WBC 6.1 RBC 3.45 L Hgb 10.2 L Hct 30.2 L MCV 87.5 MCH 29.6 MCHC 33.8 RDW 18.5 H Plt Count 214 MPV 12.0 Immature Gran % Seg Neutrophils % Lymphocytes % Monocytes % Eosinophils % Basophils % Neutrophils # Lymphocytes # Monocytes # Eosinophils # Basophils # Platelet Estimate PT INR APTT Sodium 137 Potassium 4.0 Chloride 97 L Carbon Dioxide 30 H BUN 48 H Creatinine 3.89 H Est GFR ( Amer) 18 L Est GFR (Non-Af Amer) 15 L BUN/Creatinine Ratio 12 Glucose 71 POC Glucose Calculated Osmolality 295 Calcium 8.5 L Phosphorus Magnesium Total Bilirubin 2.0 H Direct Bilirubin 1.2 H Indirect Bilirubin 0.8 AST 32 ALT 29 Alkaline Phosphatase 1485 H Troponin I Serum Total Protein 5.8 L Albumin 3.6 Globulin 2.2 L Albumin/Globulin Ratio 1.6 Triglycerides Cholesterol LDL Cholesterol, Calc VLDL Cholesterol, Calc HDL Cholesterol Cholesterol/HDL Ratio Hep Bs Antigen Hep Bs Antibody 04/18/18 04/17/18 04/17/18 04:29 07:56 06:32 WBC RBC Hgb Hct MCV MCH MCHC RDW Plt Count MPV Immature Gran % Seg Neutrophils % Lymphocytes % Monocytes % Eosinophils % Basophils % Neutrophils # Lymphocytes # Monocytes # Eosinophils # Basophils # Platelet Estimate PT 24.7 H INR 2.3 APTT Sodium 137 Potassium 4.2 Chloride 97 L Carbon Dioxide 26 BUN 74 H Creatinine 4.89 H Est GFR ( Amer) 14 L Est GFR (Non-Af Amer) 12 L BUN/Creatinine Ratio 15 Glucose 61 L POC Glucose 77 Calculated Osmolality 304 H Calcium 8.5 L Phosphorus Magnesium Total Bilirubin Direct Bilirubin Indirect Bilirubin AST ALT Alkaline Phosphatase Troponin I Serum Total Protein Albumin Globulin Albumin/Globulin Ratio Triglycerides Cholesterol LDL Cholesterol, Calc VLDL Cholesterol, Calc HDL Cholesterol Cholesterol/HDL Ratio Hep Bs Antigen Hep Bs Antibody 04/17/18 04/17/18 04/16/18 06:32 06:32 20:16 WBC 6.7 RBC 3.64 L Hgb 11.0 L Hct 32.1 L MCV 88.2 MCH 30.2 MCHC 34.3 RDW 18.6 H Plt Count 237 MPV 12.2 Immature Gran % Seg Neutrophils % Lymphocytes % Monocytes % Eosinophils % Basophils % Neutrophils # Lymphocytes # Monocytes # Eosinophils # Basophils # Platelet Estimate PT 26.5 H INR 2.4 APTT Sodium Potassium Chloride Carbon Dioxide BUN Creatinine Est GFR ( Amer) Est GFR (Non-Af Amer) BUN/Creatinine Ratio Glucose POC Glucose 101 H Calculated Osmolality Calcium Phosphorus Magnesium Total Bilirubin Direct Bilirubin Indirect Bilirubin AST ALT Alkaline Phosphatase Troponin I Serum Total Protein Albumin Globulin Albumin/Globulin Ratio Triglycerides Cholesterol LDL Cholesterol, Calc VLDL Cholesterol, Calc HDL Cholesterol Cholesterol/HDL Ratio Hep Bs Antigen Hep Bs Antibody 04/16/18 04/16/18 04/16/18 10:15 09:13 08:14 WBC RBC Hgb Hct MCV MCH MCHC RDW Plt Count MPV Immature Gran % Seg Neutrophils % Lymphocytes % Monocytes % Eosinophils % Basophils % Neutrophils # Lymphocytes # Monocytes # Eosinophils # Basophils # Platelet Estimate PT 33.7 H INR 3.1 APTT Sodium Potassium Chloride Carbon Dioxide BUN Creatinine Est GFR ( Amer) Est GFR (Non-Af Amer) BUN/Creatinine Ratio Glucose POC Glucose Calculated Osmolality Calcium Phosphorus Magnesium Total Bilirubin Direct Bilirubin Indirect Bilirubin AST ALT Alkaline Phosphatase Troponin I 0.06 H* Serum Total Protein Albumin Globulin Albumin/Globulin Ratio Triglycerides Cholesterol LDL Cholesterol, Calc VLDL Cholesterol, Calc HDL Cholesterol Cholesterol/HDL Ratio Hep Bs Antigen Nonreactive Hep Bs Antibody 0.19 04/16/18 04/16/18 04/16/18 04:15 04:15 04:15 WBC 6.5 RBC 3.54 L Hgb 10.5 L Hct 31.0 L MCV 87.6 MCH 29.7 MCHC 33.9 RDW 18.6 H Plt Count 257 MPV 12.0 Immature Gran % 0.2 Seg Neutrophils % 61.1 Lymphocytes % 6.1 Monocytes % 18.5 Eosinophils % 12.1 Basophils % 2.0 Neutrophils # 4.0 Lymphocytes # 0.4 L Monocytes # 1.2 Eosinophils # 0.8 H Basophils # 0.1 Platelet Estimate Normal PT INR APTT Sodium 137 Potassium 4.7 Chloride 98 Carbon Dioxide 25 BUN 107 H Creatinine 5.74 H Est GFR ( Amer) 12 L Est GFR (Non-Af Amer) 10 L BUN/Creatinine Ratio 19 Glucose 77 POC Glucose Calculated Osmolality 316 H Calcium 8.2 L Phosphorus 7.0 H Magnesium 2.3 Total Bilirubin 1.1 H Direct Bilirubin Indirect Bilirubin AST 24 ALT 30 Alkaline Phosphatase 1439 H Troponin I 0.07 H* Serum Total Protein 5.4 L Albumin 3.1 L Globulin 2.3 L Albumin/Globulin Ratio 1.3 Triglycerides 44 Cholesterol 112 LDL Cholesterol, Calc 35 VLDL Cholesterol, Calc 9 HDL Cholesterol 68 H Cholesterol/HDL Ratio 1.6 Hep Bs Antigen Hep Bs Antibody 04/15/18 04/15/18 22:42 22:42 WBC RBC Hgb Hct MCV MCH MCHC RDW Plt Count MPV Immature Gran % Seg Neutrophils % Lymphocytes % Monocytes % Eosinophils % Basophils % Neutrophils # Lymphocytes # Monocytes # Eosinophils # Basophils # Platelet Estimate PT 36.1 H INR 3.3 APTT 41.7 H Sodium Potassium Chloride Carbon Dioxide BUN Creatinine Est GFR ( Amer) Est GFR (Non-Af Amer) BUN/Creatinine Ratio Glucose POC Glucose Calculated Osmolality Calcium Phosphorus Magnesium Total Bilirubin Direct Bilirubin Indirect Bilirubin AST ALT Alkaline Phosphatase Troponin I 0.05 H* Serum Total Protein Albumin Globulin Albumin/Globulin Ratio Triglycerides Cholesterol LDL Cholesterol, Calc VLDL Cholesterol, Calc HDL Cholesterol Cholesterol/HDL Ratio Hep Bs Antigen Hep Bs Antibody
[2018-04-18] MEDS ORDERED: *HR* Warfarin 2 MG TABLET PO ONE (18:00)
[2018-04-18] MEDS ORDERED: 0.9 % Sodium Chloride 250 ML IVC PRN (18:47)
--- NOTE | 2018-04-18 18:47 | Internal Med Progress Note ---
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 Medications to reestablish patient and to order SPEP and serum free kappa light chain for AM. (2) ESRD (end stage renal disease) on dialysis Current Visit: No Status: Chronic Assessment and plan: Nephrology following with recommendations for hemodialysis (3) Hypotension Current Visit: Yes Status: Acute Assessment and plan: Apparently patient at baseline has low blood pressures; pressures this afternoon within normal limits Beta colton continues to be held Will continue to monitor Qualifiers: Hypotension type: idiopathic hypotension Qualified Code(s): I95.0 - Idiopathic hypotension (4) CHF (congestive heart failure) Current Visit: No Status: Acute Assessment and plan: Echocardiogram showed LVEF of 55% indeterminate diastolic function Qualifiers: Heart failure chronicity: unspecified Qualified Code(s): I50.9 - Heart failure, unspecified (5) Multiple myeloma Current Visit: No Status: Acute Assessment and plan: history of multiple myeloma, stable Consult hematology oncology and appreciate recommendations Qualifiers: Multiple myeloma remission status: unspecified Qualified Code(s): C90.00 - Multiple myeloma not having achieved remission (6) Anemia in chronic kidney disease, on chronic dialysis Current Visit: No Status: Chronic Assessment and plan: her hemoglobin target is 10-11, ESAs as per outpatient protocol (7) Atrial fibrillation Current Visit: Yes Status: Acute Assessment and plan: Heart rate controlled even know beta colton being held due to hypotension as above Will continue to monitor Will continue chronic anticoagulation with warfarin Qualifiers: Atrial fibrillation type: unspecified Qualified Code(s): I48.91 - Unspecified atrial fibrillation (8) Clostridium difficile diarrhea Current Visit: No Status: Acute Assessment and plan: the patient has history of chronic C. difficile colitis, we will continue oral vancomycin (9) DVT prophylaxis Current Visit: No Status: Acute Assessment and plan: Continue home dose of Coumadin - Time Spent With Patient Total time spent is greater than 50% in coordination of care (as documented) at patient's floor/unit and/or counseling patient: - Subjective Interval history: Patient's blood pressures are now within normal limits. - Constitutional Vitals: Temp Pulse Resp BP Pulse Ox 97.9 F 91 18 121/47 98 04/18/18 16:25 04/18/18 16:25 04/18/18 16:25 04/18/18 16:25 04/18/18 16:25 General appearance: Present: A&O X 3, no acute distress - Respiratory Respiratory exam: Present: CTAB. Absent: accessory muscle use, rales, rhonchi, wheezes - Cardiovascular Cardiovascular exam: Present: RRR, +S1, +S2. Absent: diastolic murmur, gallop, rubs, systolic murmur Internal Medicine: Result - Labs CBC & Chem 7: 04/18/18 04:29 04/18/18 04:29 Labs: Short CBC 04/18/18 Range/Units 04:29 WBC 6.1 (4.3-11.1) K/mcL Hgb 10.2 L (12.9-16.9) g/dL Hct 30.2 L (37.5-50.1) % Plt Count 214 (140-400) K/mcL BMP 04/18/18 04:29 Sodium 137 Potassium 4.0 Chloride 97 L Carbon Dioxide 30 H BUN 48 H Creatinine 3.89 H Glucose 71 Calcium 8.5 L Liver Function 04/18/18 Range/Units 12:06 Total Bilirubin 2.0 H (0.3-1.0) mg/dL Direct Bilirubin 1.2 H (0.0-0.2) mg/dL AST 32 (13-39) Units/L ALT 29 (7-52) Units/L Alkaline Phosphatase 1485 H (34-104) Units/L Albumin 3.6 (3.5-5.7) g/dL - ABG Interpretation ABG results: PT/INR, D-dimer PT 24.7 Seconds (9.4-12.1) H 04/18/18 04:29 - VTE Documentation of Mechanical Device: Graduated compression elastic hosiery Consult Discharge Plan - Plan Referrals: Adolfo Tobias DO [Primary Care Provider] -
[2018-04-19 06:08] LABS: Hematocrit 30.7 % (37.5-50.1); Hemoglobin 10.2 g/dL (12.9-16.9); Mean Corpuscular HGB Conc 33.2 g/dL (31.6-35.5); Mean Corpuscular Hemoglobin 29.1 pg (28.0-33.3); Mean Corpuscular Volume 87.5 fL (83.0-100.0); Mean Platelet Volume 12.2 fL (9.4-12.4); Platelet Count 220 K/mcL (140-400); Red Blood Count 3.51 M/mcL (4.19-5.50); Red Cell Distribution Width 18.3 % (11.5-14.5)
[2018-04-19 06:14] LABS: INR 2.4; Prothrombin Time 26.4 Seconds (9.4-12.1)
[2018-04-19 06:25] LABS: Calcium 8.7 mg/dL (8.6-10.3); Potassium 4.6 mEq/L (3.5-5.1)
[2018-04-19] MEDS ORDERED: 0.9 % Sodium Chloride 2,000 ML ONE (09:04)
[2018-04-19] MEDS: Ascorbic Acid 500 MG TABLET PO SCH (09:22)
[2018-04-19] MEDS: *HR* Amiodarone 200 MG TABLET PO SCH (09:23)
[2018-04-19] MEDS: Finasteride 5 MG TABLET PO SCH (09:23)
[2018-04-19] MEDS: Lactobacillus 1 EACH CAP.SPRINK PO SCH ×2 (09:23→21:55)
[2018-04-19] MEDS: Folic Acid 1 MG TABLET PO SCH (09:23)
[2018-04-19] MEDS ORDERED: Albumin 25% 12.5gm/50mL 25.0 GM/100 ML IV.SOLN ONE (10:50)
[2018-04-19] MEDS ORDERED: *HR* Warfarin 2 MG TABLET PO ONE (18:00)
--- NOTE | 2018-04-19 18:46 | Internal Med Progress Note ---
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 Patient to reestablish patient with hematology/oncology as an outpatient further recommendations (2) ESRD (end stage renal disease) on dialysis Current Visit: No Status: Chronic Assessment and plan: Nephrology following with recommendations for hemodialysis on 04/20/18 (3) Hypotension Current Visit: Yes Status: Acute Assessment and plan: Apparently patient at baseline has low blood pressures; pressures this afternoon within normal limits Beta colton continues to be held Will continue to monitor Qualifiers: Hypotension type: idiopathic hypotension Qualified Code(s): I95.0 - Idiopathic hypotension (4) CHF (congestive heart failure) Current Visit: No Status: Acute Assessment and plan: Echocardiogram showed LVEF of 55% indeterminate diastolic function Qualifiers: Heart failure chronicity: unspecified Qualified Code(s): I50.9 - Heart failure, unspecified (5) Multiple myeloma Current Visit: No Status: Acute Assessment and plan: history of multiple myeloma, stable Consult hematology oncology and appreciate recommendations Qualifiers: Multiple myeloma remission status: unspecified Qualified Code(s): C90.00 - Multiple myeloma not having achieved remission (6) Anemia in chronic kidney disease, on chronic dialysis Current Visit: No Status: Chronic Assessment and plan: her hemoglobin target is 10-11, ESAs as per outpatient protocol (7) Atrial fibrillation Current Visit: Yes Status: Acute Assessment and plan: Heart rate controlled even know beta colton being held due to hypotension as above Will continue to monitor Will continue chronic anticoagulation with warfarin Qualifiers: Atrial fibrillation type: unspecified Qualified Code(s): I48.91 - Unspecified atrial fibrillation (8) Clostridium difficile diarrhea Current Visit: No Status: Acute Assessment and plan: the patient has history of chronic C. difficile colitis; antibiotic course completed (9) DVT prophylaxis Current Visit: No Status: Acute Assessment and plan: Continue home dose of Coumadin - Time Spent With Patient Total time spent is greater than 50% in coordination of care (as documented) at patient's floor/unit and/or counseling patient: - Subjective Interval history: Patient's blood pressures are now within normal limits. Patient scheduled for hemodialysis on the morning of 04/20/18 - Constitutional Vitals: Temp Pulse Resp BP Pulse Ox 98.4 F 93 20 110/55 96 04/19/18 15:27 04/19/18 15:27 04/19/18 15:27 04/19/18 15:27 04/19/18 15:27 General appearance: Present: A&O X 3, no acute distress - Respiratory Respiratory exam: Present: CTAB. Absent: accessory muscle use, rales, rhonchi, wheezes - Cardiovascular Cardiovascular exam: Present: RRR, +S1, +S2. Absent: diastolic murmur, gallop, rubs, systolic murmur Internal Medicine: Result - Labs CBC & Chem 7: 04/19/18 05:34 04/19/18 05:34 Labs: Short CBC 04/19/18 Range/Units 05:34 WBC 7.4 (4.3-11.1) K/mcL Hgb 10.2 L (12.9-16.9) g/dL Hct 30.7 L (37.5-50.1) % Plt Count 220 (140-400) K/mcL BMP 04/19/18 05:34 Sodium 137 Potassium 4.6 Chloride 98 Carbon Dioxide 27 BUN 65 H Creatinine 4.84 H Glucose 85 Calcium 8.7 Liver Function 04/19/18 Range/Units 10:02 GGT 412 H (2-30) Units/L - ABG Interpretation ABG results: PT/INR, D-dimer PT 26.4 Seconds (9.4-12.1) H 04/19/18 05:34 - VTE Documentation of Mechanical Device: Graduated compression elastic hosiery Consult Discharge Plan - Plan Referrals: Adolfo Tobias DO [Primary Care Provider] -
[2018-04-20] MEDS ORDERED: *HR* OxyCODONE/APAP 5/325 TABLET PO ONE (01:22)
--- NOTE | 2018-04-20 04:01 | Nephrology Progress Note ---
Date of Encounter: 04/19/18 Time of Encounter: 10:00 - Assessment and Plan (1) ESRD (end stage renal disease) on dialysis Current Visit: No Status: Chronic Patient seen on dialysis. Will continue with MWF dialysis. Extra dialysis and UF as needed. Renal dose medications. Renal diet. Subjective Principal diagnosis: ESRD Interval history: Patient was seen on dialysis. No new complaint. Objective - Vital Signs Vital signs: Vital Signs Temp Pulse Resp BP Pulse Ox 04/20/18 03:42 97.7 F 90 16 103/56 96 04/19/18 19:12 98.2 F 98 16 98/57 98 04/19/18 15:27 98.4 F 93 20 110/55 96 04/19/18 12:53 97.2 F L 18 103/49 04/19/18 12:30 101/56 04/19/18 12:15 102/56 04/19/18 12:00 103/67 04/19/18 11:45 102/59 04/19/18 11:30 102/55 04/19/18 11:15 103/59 04/19/18 11:00 105/60 04/19/18 10:45 96/62 04/19/18 10:30 104/58 04/19/18 10:15 108/57 04/19/18 10:00 100/57 04/19/18 09:45 119/55 04/19/18 09:30 103/55 04/19/18 09:15 96/53 04/19/18 09:00 97.9 F 18 96/66 04/19/18 06:49 98.3 F 96 18 114/69 96 04/19/18 04:07 98.1 F 88 18 106/64 95 Intake and Output 04/19/18 04/19/18 04/20/18 15:59 23:59 07:59 Intake Total 840 / 840 Output Total 2099 Balance -1260 / -1260 Intake: Oral 240 / 240 Intake, Rinseback and Flushes 600 / 600 Output: Urine 0 / 0 Total Dialysis (HD) Output 2099 Other: Meal Breakfast Percent of Meal Consumed 100% Stool Size Moderate Stool Consistency loose Stool Color Brown Yellow Green Weight 65.7 kg Blood Glucose* 80 Hemodialysis Net Fluid Removed 1500 (mL) Patient Weight 04/20/18 23:59 Weight 65.7 kg - General Appearance General appearance: Present: well-developed, well-nourished EENT: Present: ATNC Cardiology: Present: regular rate Integumentary: Present: warm and dry Neurologic: Present: alert and oriented x3 Psychiatric: Present: mood/affect appropriate - Lab 04/19/18 05:34 04/19/18 05:34 Most recent lab results Calcium 8.7 mg/dL (8.6-10.3) 04/19/18 05:34 Phosphorus 7.0 mg/dL (2.7-4.5) H 04/16/18 04:15 Magnesium 2.3 mg/dL (1.6-2.6) 04/16/18 04:15 - VTE Documentation of Mechanical Device: Graduated compression elastic hosiery Consult Discharge Plan - Plan Referrals: Adolfo Tobias DO [Primary Care Provider] -
[2018-04-20 05:26] LABS: Hematocrit 29.3 % (37.5-50.1); Hemoglobin 9.8 g/dL (12.9-16.9); Mean Corpuscular HGB Conc 33.4 g/dL (31.6-35.5); Mean Corpuscular Hemoglobin 29.3 pg (28.0-33.3); Mean Corpuscular Volume 87.5 fL (83.0-100.0); Mean Platelet Volume 12.2 fL (9.4-12.4); Platelet Count 198 K/mcL (140-400); Red Blood Count 3.35 M/mcL (4.19-5.50); Red Cell Distribution Width 18.3 % (11.5-14.5)
[2018-04-20 05:30] LABS: INR 2.6; Prothrombin Time 28.6 Seconds (9.4-12.1)
[2018-04-20 05:46] LABS: Calcium 8.5 mg/dL (8.6-10.3)
[2018-04-20] MEDS: Finasteride 5 MG TABLET PO SCH (09:29)
[2018-04-20] MEDS: Ascorbic Acid 500 MG TABLET PO SCH (09:29)
[2018-04-20] MEDS: *HR* Amiodarone 200 MG TABLET PO SCH (09:29)
[2018-04-20] MEDS: Folic Acid 1 MG TABLET PO SCH (09:29)
[2018-04-20] MEDS: Lactobacillus 1 EACH CAP.SPRINK PO SCH ×2 (09:29→20:17)
--- NOTE | 2018-04-20 11:12 | Nephrology Progress Note ---
Date of Encounter: 04/20/18 Time of Encounter: 11:10 - Assessment and Plan (1) ESRD (end stage renal disease) on dialysis Current Visit: No Status: Chronic Patient seen on dialysis. Will continue with MWF dialysis. Extra dialysis and UF as needed. Renal dose medications. Renal diet. No need for dialysis today. Subjective Principal diagnosis: ESRD Interval history: Patient was seen. He is asleep. No new reports. Objective - Vital Signs Vital signs: Vital Signs Temp Pulse Resp BP Pulse Ox 04/20/18 08:45 98.1 F 97 16 119/60 94 04/20/18 03:42 97.7 F 90 16 103/56 96 04/19/18 19:12 98.2 F 98 16 98/57 98 04/19/18 15:27 98.4 F 93 20 110/55 96 04/19/18 12:53 97.2 F L 18 103/49 04/19/18 12:30 101/56 04/19/18 12:15 102/56 04/19/18 12:00 103/67 04/19/18 11:45 102/59 04/19/18 11:30 102/55 04/19/18 11:15 103/59 Intake and Output 04/19/18 04/20/18 04/20/18 23:59 07:59 15:59 Other: Stool Size Moderate Stool Consistency loose Stool Color Brown Yellow Green Weight 65.7 kg Patient Weight 04/20/18 23:59 Weight 65.7 kg - General Appearance General appearance: Present: well-developed, well-nourished EENT: Present: ATNC Neck: Present: supple Cardiology: Present: regular rate - Lab 04/20/18 04:17 04/20/18 04:17 Most recent lab results Calcium 8.5 mg/dL (8.6-10.3) L 04/20/18 04:17 Phosphorus 7.0 mg/dL (2.7-4.5) H 04/16/18 04:15 Magnesium 2.3 mg/dL (1.6-2.6) 04/16/18 04:15 - VTE Documentation of Mechanical Device: Graduated compression elastic hosiery Consult Discharge Plan - Plan Referrals: Adolfo Tobias DO [Primary Care Provider] -
[2018-04-20] MEDS: Furosemide 40 MG TABLET PO SCH (12:07)
[2018-04-20] MEDS ORDERED: *HR* Warfarin 2 MG TABLET PO ONE (18:00)
--- NOTE | 2018-04-20 18:09 | Internal Med Progress Note ---
Date of Encounter: 04/20/18 Time of Encounter: 11:00 - Assessment and plan (1) Hypotension Current Visit: Yes Status: Acute Assessment and plan: Apparently patient at baseline has low blood pressures Pressures now continue to be close to normal limits Patient was restarted on his home dose of Lasix this morning due to history of CHF Will monitor blood pressures overnight Will continue to hold beta colton Qualifiers: Hypotension type: idiopathic hypotension Qualified Code(s): I95.0 - Idiopathic hypotension (2) Primary amyloidosis of light chain type Current Visit: No Status: Chronic Assessment and plan: Hematology oncology consulted and patient was found to have already been treated with CyBorD chemotherapy cycle 1 on 03/24/2016 but currently off all treatments as patient lost to follow-up. Patient to reestablish patient with hematology/oncology as an outpatient further recommendations (3) ESRD (end stage renal disease) on dialysis Current Visit: No Status: Chronic Assessment and plan: Nephrology following with recommendations for hemodialysis on 04/20/18 (4) CHF (congestive heart failure) Current Visit: No Status: Acute Assessment and plan: Echocardiogram showed LVEF of 55% indeterminate diastolic function Qualifiers: Heart failure chronicity: unspecified Qualified Code(s): I50.9 - Heart failure, unspecified (5) Multiple myeloma Current Visit: No Status: Acute Assessment and plan: history of multiple myeloma, stable Consult hematology oncology and appreciate recommendations Qualifiers: Multiple myeloma remission status: unspecified Qualified Code(s): C90.00 - Multiple myeloma not having achieved remission (6) Anemia in chronic kidney disease, on chronic dialysis Current Visit: No Status: Chronic Assessment and plan: her hemoglobin target is 10-11, ESAs as per outpatient protocol (7) Atrial fibrillation Current Visit: Yes Status: Acute Assessment and plan: Heart rate controlled even know beta colton being held due to hypotension as above Will continue to monitor Will continue chronic anticoagulation with warfarin Qualifiers: Atrial fibrillation type: unspecified Qualified Code(s): I48.91 - Unspecified atrial fibrillation (8) Clostridium difficile diarrhea Current Visit: No Status: Acute Assessment and plan: the patient has history of chronic C. difficile colitis; antibiotic course completed (9) DVT prophylaxis Current Visit: No Status: Acute Assessment and plan: Continue home dose of Coumadin - Time Spent With Patient Total time spent is greater than 50% in coordination of care (as documented) at patient's floor/unit and/or counseling patient: - Subjective Interval history: Patient's blood pressures continue to be within normal limits. Patient restarted back on home dose of oral Lasix and will monitor today - Constitutional Vitals: Temp Pulse Resp BP Pulse Ox 97.7 F 98 18 120/84 94 04/20/18 16:39 04/20/18 16:39 04/20/18 16:39 04/20/18 16:39 04/20/18 16:39 General appearance: Present: A&O X 3, no acute distress - Respiratory Respiratory exam: Present: CTAB. Absent: accessory muscle use, rales, rhonchi, wheezes - Cardiovascular Cardiovascular exam: Present: RRR, +S1, +S2. Absent: diastolic murmur, gallop, rubs, systolic murmur Internal Medicine: Result - Labs CBC & Chem 7: 04/20/18 04:17 04/20/18 04:17 Labs: Short CBC 04/20/18 Range/Units 04:17 WBC 7.7 (4.3-11.1) K/mcL Hgb 9.8 L (12.9-16.9) g/dL Hct 29.3 L (37.5-50.1) % Plt Count 198 (140-400) K/mcL BMP 04/20/18 04:17 Sodium 138 Potassium 4.0 Chloride 96 L Carbon Dioxide 30 H BUN 42 H Creatinine 3.54 H Glucose 72 Calcium 8.5 L - ABG Interpretation ABG results: PT/INR, D-dimer PT 28.6 Seconds (9.4-12.1) H 04/20/18 04:17 - VTE Documentation of Mechanical Device: Graduated compression elastic hosiery Consult Discharge Plan - Plan Referrals: Adolfo Tobias DO [Primary Care Provider] -
[2018-04-21] MEDS ORDERED: Acetaminophen 325 MG TABLET PO ONE (00:53)
[2018-04-21 08:00] LABS: Hematocrit 30.4 % (37.5-50.1); Hemoglobin 10.2 g/dL (12.9-16.9); Mean Corpuscular HGB Conc 33.6 g/dL (31.6-35.5); Mean Corpuscular Hemoglobin 29.1 pg (28.0-33.3); Mean Corpuscular Volume 86.9 fL (83.0-100.0); Mean Platelet Volume 12.5 fL (9.4-12.4); Platelet Count 209 K/mcL (140-400)
[2018-04-21 08:08] LABS: INR 2.9; Prothrombin Time 31.4 Seconds (9.4-12.1)
[2018-04-21 08:35] LABS: Calcium 8.7 mg/dL (8.6-10.3)
[2018-04-21 08:44] LABS: Potassium 4.6 mEq/L (3.5-5.1)
[2018-04-21] MEDS: Finasteride 5 MG TABLET PO SCH (08:48)
[2018-04-21] MEDS: Ascorbic Acid 500 MG TABLET PO SCH (08:48)
[2018-04-21] MEDS: Furosemide 40 MG TABLET PO SCH (08:48)
[2018-04-21] MEDS: Folic Acid 1 MG TABLET PO SCH (08:48)
[2018-04-21] MEDS: *HR* Amiodarone 200 MG TABLET PO SCH (08:48)
[2018-04-21] MEDS: Lactobacillus 1 EACH CAP.SPRINK PO SCH (08:48)
--- NOTE | 2018-04-21 09:20 | Oncology Inp Progress Note ---
Date of Encounter: 04/21/18 Time of Encounter: 08:00 (1) Multiple myeloma Current Visit: No Status: Acute Assessment and plan: Patient with plasma cell dyscrasia/myeloid followed up a year ago with hematology, lost to follow-up. Patient continues to remain on dialysis. He is frail may not be a candidate for aggressive treatment, will need follow-up with hematology as an outpatient for continued monitoring versus consideration of treatment for amyloidosis. CBCD stable. light chains SPEP pending Plan d/w patient at bedside Qualifiers: Multiple myeloma remission status: unspecified Qualified Code(s): C90.00 - Multiple myeloma not having achieved remission Oncology: Subj Interval history: Patient is eating better he is having a good appetite he denies any complaints. - Constitutional Vitals: Vital Signs Temp Pulse Resp BP Pulse Ox 04/21/18 07:36 98.8 F 16 16 101/57 98 04/21/18 04:31 97.8 F 98 16 101/44 94 04/21/18 00:04 98.3 F 92 18 103/61 95 04/20/18 19:18 98.3 F 92 16 114/53 94 04/20/18 16:39 97.7 F 98 18 120/84 94 04/20/18 12:58 98.1 F 96 16 106/63 93 Intake and Output 04/20/18 04/21/18 04/21/18 23:59 07:59 15:59 Intake Total 110 / 110 Balance 110 / 110 Intake: Oral 110 / 110 Other: Meal Dinner Percent of Meal Consumed 50% Stool Size Large Stool Consistency soft Stool Color Brown # Voids 0 # Bowel Movements 1 # Bowel Movement Diapers 1 Weight 67 kg Patient Weight 04/21/18 23:59 Weight 67 kg General appearance: no acute distress - Head Head exam: Present: atraumatic, normal inspection - Eye Eye exam: Present: sclera anicteric - ENT ENT exam: Present: mucous membranes dry - Neck Neck exam: Present: normal inspection - Respiratory Respiratory exam: Present: wheezes - Cardiovascular Cardiovascular exam: Present: +S1, +S2 - GI/Abdominal GI/Abdominal exam: Present: normal bowel sounds, soft - Neurological Exam Neurological exam: Present: alert, CN II-XII intact, oriented X3 Oncology: Obj Data - Labs CBC & Chem 7: 04/21/18 07:07 04/21/18 07:07 Labs: Laboratory Results - last 24 hr 04/21/18 04/21/18 04/21/18 07:07 07:07 07:07 WBC 8.3 RBC 3.50 L Hgb 10.2 L Hct 30.4 L MCV 86.9 MCH 29.1 MCHC 33.6 RDW 18.0 H Plt Count 209 MPV 12.5 H PT 31.4 H INR 2.9 Sodium 138 Potassium 4.6 Chloride 96 L Carbon Dioxide 30 H BUN 56 H Creatinine 4.91 H Est GFR ( Amer) 14 L Est GFR (Non-Af Amer) 12 L BUN/Creatinine Ratio 11 Glucose 72 Calculated Osmolality 300 Calcium 8.7 - ABG Interpretation ABG results: PT/INR, D-dimer PT 31.4 Seconds (9.4-12.1) H 04/21/18 07:07 Consult Discharge Plan - Plan Referrals: Adolfo Tobias DO [Primary Care Provider] -
--- NOTE | 2018-04-21 10:33 | Nephrology Progress Note ---
Date of Encounter: 04/21/18 Time of Encounter: 10:33 - Assessment and Plan (1) ESRD (end stage renal disease) on dialysis Current Visit: No Status: Chronic Will continue with MWF dialysis. Extra dialysis and UF as needed. Renal dose medications. Renal diet. No need for dialysis today. Anticipate discharge today. Subjective Principal diagnosis: ESRD Interval history: Patient was seen. He has no new complaint. Objective - Vital Signs Vital signs: Vital Signs Temp Pulse Resp BP Pulse Ox 04/21/18 07:36 98.8 F 16 16 101/57 98 04/21/18 04:31 97.8 F 98 16 101/44 94 04/21/18 00:04 98.3 F 92 18 103/61 95 04/20/18 19:18 98.3 F 92 16 114/53 94 04/20/18 16:39 97.7 F 98 18 120/84 94 04/20/18 12:58 98.1 F 96 16 106/63 93 Intake and Output 04/20/18 04/21/18 04/21/18 23:59 07:59 15:59 Intake Total 110 / 110 240 / 240 Balance 110 / 110 240 / 240 Intake: Oral 110 / 110 240 / 240 Other: Meal Dinner Breakfast Percent of Meal Consumed 50% 100% Stool Size Large Stool Consistency soft Stool Color Brown # Voids 0 # Bowel Movements 1 # Bowel Movement Diapers 1 Weight 67 kg Patient Weight 04/21/18 23:59 Weight 67 kg - General Appearance General appearance: Present: well-developed, well-nourished EENT: Present: ATNC Cardiology: Present: regular rate Neurologic: Present: alert and oriented x3 Psychiatric: Present: mood/affect appropriate - Lab 04/21/18 07:07 04/21/18 07:07 Most recent lab results Calcium 8.7 mg/dL (8.6-10.3) 04/21/18 07:07 Phosphorus 7.0 mg/dL (2.7-4.5) H 04/16/18 04:15 Magnesium 2.3 mg/dL (1.6-2.6) 04/16/18 04:15 - VTE Documentation of Mechanical Device: Graduated compression elastic hosiery Consult Discharge Plan - Plan Referrals: Adolfo Tobias DO [Primary Care Provider] -
[2018-04-21 11:02] VITALS: BP 101/56
--- NOTE | 2018-04-21 13:57 | Discharge Summary ---
- NOTES TO OUTPATIENT PROVIDER Notes to Outpatient Provider: Monitor blood pressure and restart beta colton if blood pressure tolerates Orders not resulted at time of discharge: Pending orders 04/19/18 05:[address] [place] Lambda Qnt FLC w Ratio AM 0400 Protein Electrophoresis AM 04004/19/18 10:02 Bone Specific Alkaline Phos Routine 04/22/18 04:00 Basic Metabolic Panel AM 0400 Complete Blood Count w/o Diff [HEME] AM 040 INR/PT [Prothrombin Time INR] [COAG] AM 04004/23/18 04:00 INR/PT [Prothrombin Time INR] [COAG] AM 04004/24/18 04:00 INR/PT [Prothrombin Time INR] [COAG] AM 040 Date of Encounter: 04/21/18 Time of Encounter: 11:00 - Discharge Diagnosis (1) Hypotension Priority: Primary Status: Acute Qualifiers: Hypotension type: idiopathic hypotension Qualified Code(s): I95.0 - Idiopathic hypotension (2) Primary amyloidosis of light chain type Priority: Primary Status: Chronic (3) ESRD (end stage renal disease) on dialysis Priority: Secondary Status: Chronic (4) CHF (congestive heart failure) Priority: Secondary Status: Acute Qualifiers: Heart failure chronicity: unspecified Qualified Code(s): I50.9 - Heart failure, unspecified (5) Multiple myeloma Priority: Secondary Status: Acute Qualifiers: Multiple myeloma remission status: unspecified Qualified Code(s): C90.00 - Multiple myeloma not having achieved remission (6) Anemia in chronic kidney disease, on chronic dialysis Priority: Secondary Status: Chronic (7) Atrial fibrillation Priority: Secondary Status: Acute Qualifiers: Atrial fibrillation type: unspecified Qualified Code(s): I48.91 - Unspecified atrial fibrillation (8) Clostridium difficile diarrhea Priority: Secondary Status: Acute Hospital course: Patient is a 77-year-old male with past medical history significant for end- stage renal disease, atrial fibrillation, CHF, hyperlipidemia and valvular heart disease who presented to the ER on 04/15/18 due to hypotension. Patient was sent from hemodialysis unit due to low blood pressures to [facility] for further evaluation. Patient stated that when he woke up the morning of admission, he noticed that his blood pressures were low and reported systolic in the mid-80s. During patients hospital stay, nephrology was consulted with recommendations for albumin infusion to support blood pressures. Patients beta colton and oral diuretic was also held as well. Patients blood pressures have improved to baseline and was able to tolerate hemodialysis per nephrology recommendations. Patient was also found to have amyloidosis of light chain type and hematology oncology was consulted with recommendations for patient to reestablish as an outpatient for continued treatment with CyBorD chemotherapy. Patient will be discharged back to [facility] to continue oral Lasix but to hold off on resuming blockers for now. Patient blood pressures to be monitored. - Time Spent with Patient Total time spent providing and/or coordinating discharge services: Greater than 30 minutes - Discharge Medications Prescriptions: OxyCODONE/APAP 5/325 [Percocet 5/325 MG] 1 each PO Q6H PRN 4 Days #16 tablet PRN Reason: Pain Home Medications: Finasteride [Proscar] 5 mg PO DAILY 07/26/16 [History] Polyvinyl Alcohol/Povidone/Pf [Refresh Classic Eye Drops] 1 drop BOTH EYES BID 08/18/16 [History] Atorvastatin Calcium [Lipitor] 20 mg PO HS 12/22/16 [History] Fluticasone Propionate Nasal [Flonase] 1 spr NS DAILY PRN 05/03/17 [History] Montelukast [Singulair] 10 mg PO DAILY 10/29/17 [History] Oxygen 3 l NS AD 10/29/17 [History] Lactobacillus Acidophilus [Acidophilus] 100 mg PO BID 01/17/18 [History] Amiodarone [Cordarone] 200 mg PO DAILY 02/03/18 [History] Folic Acid/Vit Bcomp,C [Renal Vitamin Tablet] 0.8 mg PO DAILY 02/03/18 [History] Furosemide [Lasix] 40 mg PO DAILY 02/03/18 [History] Lidocaine/Prilocaine CREAM [Emla] 1 appl TP MOWEFR 02/03/18 [History] Loratadine [Allergy Relief] 10 mg PO DAILY 02/03/18 [History] Mirtazapine [Remeron] 15 mg PO HS 02/03/18 [History] Sevelamer [Renvela] 1,600 mg PO AD MDD See Comments. 02/03/18 [History] Albuterol Neb [Proventil Neb] 2.5 mg IH Q4H PRN 02/26/18 [History] Pantoprazole Sodium [Protonix] 40 mg PO BID 02/26/18 [History] Vit C/Vit E AC/Lut/Copper/Zinc [Preservision Lutein Softgel] 1 each PO BID 02/26 [History] Ondansetron HCl [Zofran] 4 mg PO Q4H PRN 04/16/18 [History] Warfarin [Coumadin] 2 mg PO DAILY 04/16/18 [History] OxyCODONE/APAP 5/325 [Percocet 5/325 MG] 1 each PO Q6H PRN 4 Days #16 tablet [Rx] Allergies/Adverse Reactions: 3 Allergy/AdvReac Type Severity Reaction Status Date / Time Amoxicillin Allergy Swelling Verified 02/03/18 14:35 of Lip/Tongue/Throat Penicillins [PCN] Allergy Anaphylaxis Verified 02/03/18 14:35 venom-honey bee Allergy Anaphylaxis Verified 02/03/18 14:35 [bee venom (honey bee)] Date of admission: 04/15/18 18:23 Primary care physician: Adolfo Tobias DO Consults: 04/15/18 22:25 Consult to Physician [CONS] Routine Consulting Provider: Buster Alex Reason for Consult: esrd Time Notified: 22:25 Call Completed: Yes 04/16/18 08:22 Consult to Nurse Navigator [CONS] Routine Comment: [facility] 04/16/18 08:30 Consult to Dialysis [CONS] ONCE 04/17/18 06:15 Consult to Dialysis [CONS] ONCE 04/17/18 18:53 Consult to Occupational Therapy [CONS] Routine Comment: Evaluate, develop and implement POC Reason for Consult: weakness Does patient have active BEDREST order?: No Is patient medically & hemodynamically stable?: Yes Patient assessed for mobility or mobilized this visit?: No Consult to Physical Therapy [CONS] Routine Comment: Evaluate, develop and implement POC Reason for Consult: weakness Does patient have active BEDREST order?: No Is patient medically & hemodynamically stable?: Yes Patient assessed for mobility or mobilized this visit?: No 04/17/18 19:31 Consult to Oncology Hematology [CONS] Routine Consulting Provider: [facility] Reason for Consult: Multiple myeloma/amyloidosis Call Completed: Yes 04/18/18 10:24 Consult to Spray Dry Operator [CONS] Routine Reason for SW Consult: return to [facility] 04/18/18 19:00 Consult to Dialysis [CONS] ONCE - Constitutional Vitals: Temp Pulse Resp BP Pulse Ox 98.4 F 95 16 101/56 98 04/21/18 11:01 04/21/18 11:01 04/21/18 11:01 04/21/18 11:01 04/21/18 11:01 General appearance: Present: A&O X 3, no acute distress - Cardiovascular Cardiovascular exam: Present: RRR, +S1, +S2. Absent: diastolic murmur, gallop, rubs, systolic murmur - Patient Status Disposition: Transfer SNF - Discharge Instructions Instructions: Heart Failure (DC), Hypotension (DC) Follow Up With: Adolfo Tobias DO [Primary Care Provider] - - VTE Documentation of Mechanical Device: Graduated compression elastic hosiery
--- NOTE | 2018-04-21 13:57 | Physician Discharge Referral ---
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 (3) ESRD (end stage renal disease) on dialysis Status: Chronic (4) CHF (congestive heart failure) Status: Acute (5) Multiple myeloma Status: Acute (6) Anemia in chronic kidney disease, on chronic dialysis Status: Chronic (7) Atrial fibrillation Status: Acute (8) Clostridium difficile diarrhea Status: Acute (9) DVT prophylaxis Status: Acute - Transfer Medications Prescriptions: OxyCODONE/APAP 5/325 [Percocet 5/325 MG] 1 each PO Q6H PRN 4 Days #16 tablet PRN Reason: Pain Home Medications: Finasteride [Proscar] 5 mg PO DAILY 07/26/16 [History] Polyvinyl Alcohol/Povidone/Pf [Refresh Classic Eye Drops] 1 drop BOTH EYES BID 08/18/16 [History] Atorvastatin Calcium [Lipitor] 20 mg PO HS 12/22/16 [History] Fluticasone Propionate Nasal [Flonase] 1 spr NS DAILY PRN 05/03/17 [History] Montelukast [Singulair] 10 mg PO DAILY 10/29/17 [History] Oxygen 3 l NS AD 10/29/17 [History] Lactobacillus Acidophilus [Acidophilus] 100 mg PO BID 01/17/18 [History] Amiodarone [Cordarone] 200 mg PO DAILY 02/03/18 [History] Folic Acid/Vit Bcomp,C [Renal Vitamin Tablet] 0.8 mg PO DAILY 02/03/18 [History] Furosemide [Lasix] 40 mg PO DAILY 02/03/18 [History] Lidocaine/Prilocaine CREAM [Emla] 1 appl TP MOWEFR 02/03/18 [History] Loratadine [Allergy Relief] 10 mg PO DAILY 02/03/18 [History] Mirtazapine [Remeron] 15 mg PO HS 02/03/18 [History] Sevelamer [Renvela] 1,600 mg PO AD MDD See Comments. 02/03/18 [History] Albuterol Neb [Proventil Neb] 2.5 mg IH Q4H PRN 02/26/18 [History] Pantoprazole Sodium [Protonix] 40 mg PO BID 02/26/18 [History] Vit C/Vit E AC/Lut/Copper/Zinc [Preservision Lutein Softgel] 1 each PO BID 02/26 [History] Ondansetron HCl [Zofran] 4 mg PO Q4H PRN 04/16/18 [History] Warfarin [Coumadin] 2 mg PO DAILY 04/16/18 [History] OxyCODONE/APAP 5/325 [Percocet 5/325 MG] 1 each PO Q6H PRN 4 Days #16 tablet [Rx] Allergies/Adverse Reactions: 3 Allergy/AdvReac Type Severity Reaction Status Date / Time Amoxicillin Allergy Swelling Verified 02/03/18 14:35 of Lip/Tongue/Throat Penicillins [PCN] Allergy Anaphylaxis Verified 02/03/18 14:35 venom-honey bee Allergy Anaphylaxis Verified 02/03/18 14:35 [bee venom (honey bee)] - Respiratory Orders Smoking Cessation: Smoking cessation has been advised. For more information, call the [place] Tobacco Quit Line at 1-313-AANL-NOW. CERTIFICATION: I certify that the transfer of the above named patient to an Extended Care Facility is necessary for the continuing treatment of the diagnosis listed. The above information is true and accurate reflection of patient's current condition. Confidential - Redisclosure prohibited without a patient's written consent.
[2018-04-21] MEDS ORDERED: *HR* Warfarin 1 MG TABLET PO ONE (18:00)
[2018-04-21 21:14] LABS: Kappa Qnt Free Light Chains 17.2 mg/dL (0.33-1.94); Lambda Qnt Free Light Chains 6.95 mg/dL (0.57-2.63)
[2018-04-22 12:49] LABS: Beta Globulin (PEP) 0.43 g/dL (0.48-1.10)
[2018-04-23 06:22] LABS: Immunoglobulin A 45 mg/dL (68-408); Immunoglobulin M 11 mg/dL (35-263)
[2018-04-23 06:23] LABS: IFE Reflexed IFE Done; Immunoglobulin G 576 mg/dL (768-1632)
== END 2018-04-21 16:20 | DRG 314 ==
LOC: SUATTDRO 18:23 → 2ANU 18:23
PROVIDERS: ADMIT Internal Medicine Nephrology; ATTEND Hospitalist

== ENCOUNTER 2018-06-08 03:41 | Inpatient (IN) ==
[2018-06-08] MEDS ORDERED: Ondansetron ODT 4 MG TAB.RAPDIS PO PRN (07:29)
[2018-06-08] MEDS ORDERED: Fluticasone Propionate Nasal 50 MCG/SPRAY BOTTLE NS PRN (07:29)
[2018-06-08] MEDS ORDERED: *HR* OxyCODONE/APAP 5/325 TABLET PO PRN (07:29)
[2018-06-08] MEDS ORDERED: Acetaminophen 325 MG TABLET PO PRN (07:31)
[2018-06-08] MEDS ORDERED: Naloxone 0.4 MG/ML INJ IVP PRN (07:31)
--- NOTE | 2018-06-08 07:55 | Internal Med History&Physical ---
Date of Encounter: 06/08/18 Time of Encounter: 09:12 Internal Medicine - H&P: HPI Chief complaint: Cough, confusion Admitted From: Hospital to Hospital Transfer Plans for Post Hospital Care: Transfer [facility] History of present illness: Mr. 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 The patient was transferred from [facility] ER after being sent there from his shelter for complaints of cough, confusion, hallucination. The patient is deconditioned however he is able to state that he was here because he has been having cough off and on. He is unable to verbalize any other symptoms. His son at the bedside endorses that the patient had been on treatment for pneumonia at the nursing facility, but was not improving and begone to be confused. Hence he was sent to the ER at outside facility where he received IV antibiotics and was referred here for admission for failure of outpatient therapy of pneumonia. Lab workup and chest imaging over there is as stated in the section results. Review of system: Unable to obtain due to patient's lethargy. Patient has a POA and a livng will, per patient's son he is DNR/DNI Chest CT done here showed RUL and lingula infiltrates suggesting multilobar PNA, large R pleural effusion and small left pleural effusion Past Med Surg Social Fam HX - Past Medical History Medical history: arthritis, atrial fibrillation, CHF, dialysis, GERD, hyperlipidemia, osteoporosis, renal disease, valvular heart disease, other Additional medical history: hemodialysis m,w,f. Left upper extremity fistula + thrill/ + bruit Psychiatric history: no psych history - Past Surgical History Surgical History: appendectomy Additional surgical history: Dialysis shunt and catheter - Social History Smoking Status: Never smoker Smokeless Tobacco Status: No Alcohol use: none Drug use: none - Family History Mother Family Member Ethnicity: Non- Living Status: Hx Family Neurologic Disorders: Yes (Dementia) Father Living Status: Hx Family Cardiac Disorders: Yes (mi) Internal Medicine - H&P: Meds Finasteride [Proscar] 5 mg PO DAILY 07/26/16 [History] Polyvinyl Alcohol/Povidone/Pf [Refresh Classic Eye Drops] 1 drop BOTH EYES BID 08/18/16 [History] Atorvastatin Calcium [Lipitor] 20 mg PO HS 12/22/16 [History] Fluticasone Propionate Nasal [Flonase] 1 spr NS DAILY PRN 05/03/17 [History] Montelukast [Singulair] 10 mg PO DAILY 10/29/17 [History] Oxygen 3 l NS AD 10/29/17 [History] Lactobacillus Acidophilus [Acidophilus] 100 mg PO BID 01/17/18 [History] Amiodarone [Cordarone] 200 mg PO DAILY 02/03/18 [History] Folic Acid/Vit Bcomp,C [Renal Vitamin Tablet] 0.8 mg PO DAILY 02/03/18 [History] Furosemide [Lasix] 40 mg PO DAILY 02/03/18 [History] Lidocaine/Prilocaine CREAM [Emla] 1 appl TP MOWEFR 02/03/18 [History] Loratadine [Allergy Relief] 10 mg PO DAILY 02/03/18 [History] Mirtazapine [Remeron] 15 mg PO HS 02/03/18 [History] Sevelamer [Renvela] 1,600 mg PO AD MDD See Comments. 02/03/18 [History] Albuterol Neb [Proventil Neb] 2.5 mg IH Q4H PRN 02/26/18 [History] Pantoprazole Sodium [Protonix] 40 mg PO BID 02/26/18 [History] Vit C/Vit E AC/Lut/Copper/Zinc [Preservision Lutein Softgel] 1 each PO BID 02/26 [History] Ondansetron HCl [Zofran] 4 mg PO Q4H PRN 04/16/18 [History] OxyCODONE/APAP 5/325 [Percocet 5/325 MG] 1 each PO Q6H PRN 4 Days #16 tablet [Rx] Dicyclomine [Bentyl] 10 mg PO DAILY 04/25/18 [History] 3 Allergy/AdvReac Type Severity Reaction Status Date / Time Amoxicillin Allergy Swelling Verified 05/28/18 15:29 of Lip/Tongue/Throat Penicillins [PCN] Allergy Anaphylaxis Verified 05/28/18 15:29 venom-honey bee Allergy Anaphylaxis Verified 05/28/18 15:29 [bee venom (honey bee)] All Systems PM: A 10-system review of systems was performed and is negative for pertinent findings except as documented above in the HPI. - Constitutional Constitutional: as per HPI - EENT Eyes: as per HPI Ears: as per HPI Nose, mouth and throat: as per HPI - Cardiovascular Cardiovascular ROS IM: as per HPI - Respiratory Respiratory: as per HPI - Gastrointestinal Gastrointestinal: as per HPI - Musculoskeletal Musculoskeletal ROS IM: as per HPI - Integumentary Integumentary IM: as per HPI - Neurological Neurological ROS: as per HPI - Hematologic/Lymphatic Hematologic/Lymphatic: as per HPI - Constitutional Vitals: Temp Pulse BP Pulse Ox 97.5 F L 93 104/51 91 06/08/18 05:27 06/08/18 05:27 06/08/18 05:27 06/08/18 06:16 General appearance: Present: cachectic, A&O X 3, pleasant Exam: Chronically ill-looking, cachectic, debilitated, not in distress - Head Head exam: Present: atraumatic, normocephalic - Eye Eye exam: Present: PERRL, conjuntiva pink, sclera anicteric Pupils: Present: PERRL - ENT ENT exam: Present: mucous membranes dry - Neck Neck exam general surgery: Present: normal inspection - Respiratory Additional comments: Anterior auscultation only. Patient very deconditioned Coarse Respiratory sounds bilaterally right more than left - Cardiovascular Cardiovascular exam: Present: irregular rhythm, +S1, +S2. Absent: diastolic murmur, gallop, rubs, systolic murmur - GI/Abdominal GI/Abdominal exam: Present: normal bowel sounds, soft, no peritoneal signs. Absent: distended, tenderness - Extremities Exam Extremities exam: Present: warm, radial pulses palpable and symmetrical. Absent : calf tenderness, cyanotic, pedal edema - Neurological Exam Neurological exam: Present: alert, CN II-XII intact, oriented X3, no focal deficits. Absent: pronater drift, facial droop, speech deficit - Skin Skin exam: Present: dry, intact Internal Med - H&P Results - Labs Labs: Results from outside facility showed white blood count of 5, hemoglobin of 10.4 , platelet count 1:30. Chemistry sodium 139, potassium 3.6, BUN/creatinine 54/3.37. Venous blood gas pH 7.4/PCO2 54/PO2 58 Lactic acid 1.4 Liver function tests AST/AOT 31/24, Tbil 1.9 Troponin negative EKG A. fib with ventricular rate of [address] no acute findings - Assessment and plan (1) PNA (pneumonia) Current Visit: Yes Status: Acute Assessment and plan: Patient's son at the bedside reports cough, confusion and hallucination occurring at the shelter. Patient had been treated with Levaquin at the shelter, without improvement. Patient also said to be choking on his meals Suspect aspiration pneumonia. chest CT without contrast showed RUL PNA and pleural effusion Patient also at risk of healthcare associated pneumonia due to being a shelter resident, end-stage renal disease on September dialysis, as well as consult chemotherapy Continue Levaquin intravenously, add cefepime , vancomycin, add Flagyl Patient has allergies to penicillins No evidence of sepsis,a febrile, WBC 5 (from outside hospital) Send sputum and blood culture De-escalate with culture Oxygen requirements is at his baseline, continue oxygen supplement Qualifiers: Pneumonia type: aspiration pneumonia Aspiration pneumonia type: unspecified Laterality: right Lung location: upper lobe of lung Qualified Code(s): J69.0 - Pneumonitis due to inhalation of food and vomit (2) Pleural effusion Current Visit: Yes Status: Acute Assessment and plan: Large R pleural effusion with R PNA Possibly parapneumonic, patient is also ESRD and CHFpEF INR is 3.0 O2 sat is acceptable with current O2 requirement at baseline Consider thoracentensis by IR (3) COPD (chronic obstructive pulmonary disease) Current Visit: Yes Status: Chronic Assessment and plan: Patient is not wheezing, likely COPD exacerbation DuoNeb's when necessary Hold steroids for now Qualifiers: COPD type: unspecified COPD Qualified Code(s): J44.9 - Chronic obstructive pulmonary disease, unspecified (4) Anemia in chronic kidney disease, on chronic dialysis Current Visit: Yes Status: Chronic Assessment and plan: Hb is stable (5) Atrial fibrillation Current Visit: Yes Status: Chronic Assessment and plan: HR controlled, on warfarin INR from outside hospital 3.0 Continue Warfarin, pharm to dose Monitor INR Continue amiodarone Qualifiers: Atrial fibrillation type: chronic Qualified Code(s): I48.2 - Chronic atrial fibrillation (6) CHF (congestive heart failure) Current Visit: Yes Status: Chronic Assessment and plan: euvolemic continue lasix, continue HD Qualifiers: Heart failure type: diastolic Heart failure chronicity: chronic Qualified Code(s): I50.32 - Chronic diastolic (congestive) heart failure (7) DVT prophylaxis Current Visit: Yes Status: Acute Assessment and plan: on warfarin INR 3.0 from outside facility (8) ESRD (end stage renal disease) on dialysis Current Visit: Yes Status: Chronic Assessment and plan: renal consult for routine HD (9) Hypertension Current Visit: Yes Status: Chronic Qualifiers: Hypertension type: essential hypertension Qualified Code(s): I10 - Essential (primary) hypertension (10) Primary amyloidosis of light chain type Current Visit: Yes Status: Chronic Assessment and plan: following with oncology, continue follow up out-patient (11) Chronic respiratory failure with hypoxia Current Visit: Yes Status: Chronic Assessment and plan: ON 2-3 L O2 from SNF, continue same (12) Malnutrition Current Visit: Yes Status: Acute Assessment and plan: nutrition eval Qualifiers: Malnutrition type: protein-calorie malnutrition Protein-calorie malnutrition severity: unspecified severity Qualified Code(s): E46 - Unspecified protein-calorie malnutrition (13) Physical deconditioning Current Visit: Yes Status: Acute Assessment and plan: PTOT eval - Time Spent With Patient Total time spent is greater than 50% in coordination of care (as documented) at patient's floor/unit and/or counseling patient:
[2018-06-08] MEDS ORDERED: Albuterol 2.5 MG/3 ML NEBULIZER IH PRN (08:00)
[2018-06-08] MEDS: Lactobacillus 1 EACH CAP.SPRINK PO SCH ×2 (08:55→22:19)
[2018-06-08] MEDS: Renal Vitamin 1 CAP CAPSULE PO SCH (08:55)
[2018-06-08] MEDS: Loratadine 10 MG TABLET PO SCH (08:55)
[2018-06-08] MEDS: *HR* Amiodarone 200 MG TABLET PO SCH (08:56)
[2018-06-08] MEDS: Finasteride 5 MG TABLET PO SCH (08:56)
[2018-06-08] MEDS ORDERED: Vancomycin 1 EACH in 0.9 % Sodium Chloride 250 ML IVPB PRN (09:00)
[2018-06-08] MEDS ORDERED: Levofloxacin 750 MG/150 ML 750 MG/150 ML BAG IVPB ONE (09:00)
[2018-06-08] MEDS ORDERED: Furosemide 40 MG TABLET PO SCH (09:00)
[2018-06-08] MEDS: Ipratropium/Albuterol Neb 3 ML IH SCH ×2 (09:59→15:36)
[2018-06-08 10:41] LABS: INR 2.6; Prothrombin Time 29.4 Seconds (9.4-12.1)
[2018-06-08 11:09] LABS: Albumin 3.5 g/dL (3.5-5.7); Calcium 9.2 mg/dL (8.6-10.3); Potassium 3.7 mEq/L (3.5-5.1)
[2018-06-08] MEDS: OXYCODONE Oral CONC 10 MG/0.5 ML ORAL.SYG SL PRN ×2 (13:43→22:55)
--- NOTE | 2018-06-08 14:27 | Nephrology Consult Note ---
Date of Encounter: 06/08/18 Time of Encounter: 14:15 Assessment and Plan (1) HCAP (healthcare-associated pneumonia) Current Visit: No Status: Acute Antibiotics per primary team. (2) ESRD (end stage renal disease) on dialysis Current Visit: Yes Status: Chronic HD MWF. Renal vitamins. Renal dose medications. Renal diet. Additional dialysis and ultrafiltration as needed. No need for dialysis today. (3) Anemia in chronic kidney disease, on chronic dialysis Current Visit: Yes Status: Chronic (4) Hypertension Current Visit: Yes Status: Chronic Blood pressure slightly low. May be early sepsis. Monitor. Adjust antihypertensive medications as needed. Qualifiers: Hypertension type: essential hypertension Qualified Code(s): I10 - Essential (primary) hypertension History of Present Illness - Reason for Consult Consult date: 06/08/18 end stage renal disease - Chief Complaint ESRD - History of Present Illness Mr. Yang is a 77 yo man with a history of ESRD who gets dialysis MWF. He presents with altered mental status that is felt to be secondary to pneumonia. [facility] was consulted for ongoing dialysis needs. The patient was unable to participate in the history secondary to his mental status. His son who is at the at the bedside was able to provide a history. Past Med Surg Social Fam HX - Past Medical History Medical history: arthritis, atrial fibrillation, CHF, dialysis, GERD, hyperlipidemia, osteoporosis, renal disease, valvular heart disease, other Additional medical history: hemodialysis m,w,f. Left upper extremity fistula + thrill/ + bruit Psychiatric history: no psych history - Past Surgical History Surgical History: appendectomy Additional surgical history: Dialysis shunt and catheter - Social History Smoking Status: Never smoker Smokeless Tobacco Status: No Alcohol use: none Drug use: none - Family History Mother Family Member Ethnicity: Non- Living Status: Hx Family Neurologic Disorders: Yes (Dementia) Father Living Status: Hx Family Cardiac Disorders: Yes (mi) Medications and Allergies Finasteride [Proscar] 5 mg PO DAILY 07/26/16 [History] Polyvinyl Alcohol/Povidone/Pf [Refresh Classic Eye Drops] 1 drop BOTH EYES BID 08/18/16 [History] Fluticasone Propionate Nasal [Flonase] 1 spr NS DAILY PRN 05/03/17 [History] Montelukast [Singulair] 10 mg PO DAILY 10/29/17 [History] Oxygen 3 l NS AD 10/29/17 [History] Lactobacillus Acidophilus [Acidophilus] 100 mg PO BID 01/17/18 [History] Amiodarone [Cordarone] 200 mg PO DAILY 02/03/18 [History] Furosemide [Lasix] 40 mg PO DAILY 02/03/18 [History] Lidocaine/Prilocaine CREAM [Emla] 1 appl TP MOWEFR 02/03/18 [History] Loratadine [Allergy Relief] 10 mg PO DAILY 02/03/18 [History] Albuterol Neb [Proventil Neb] 2.5 mg IH Q4H PRN 02/26/18 [History] Pantoprazole Sodium [Protonix] 40 mg PO DAILY 02/26/18 [History] Vit C/Vit E AC/Lut/Copper/Zinc [Preservision Lutein Softgel] 1 cap PO BID [History] Ondansetron HCl [Zofran] 4 mg PO Q4H PRN 04/16/18 [History] OxyCODONE/APAP 5/325 [Percocet 5/325 MG] 1 each PO Q6H PRN 4 Days #16 tablet [Rx] Dicyclomine [Bentyl] 10 mg PO DAILY 04/25/18 [History] Dronabinol [Marinol] 5 mg PO DAILY 06/08/18 [History] GuaiFENesin ER [Mucinex] 600 mg PO BID 06/08/18 [History] Levofloxacin [Levaquin] 750 mg PO ONCE 06/08/18 [History] Mirtazapine [Remeron] 30 mg PO HS 06/08/18 [History] OLANZapine [Zyprexa] 2.5 mg PO HS 06/08/18 [History] Phenyleph/Pramoxin/Glycr/W.pet [Preparation H Cream] 26 gm RC BID 06/08/18 [ History] Polyethylene Glycol 3350 [MiraLAX] 8.5 gm PO DAILY PRN 06/08/18 [History] Primidone [Mysoline] 50 mg PO HS 06/08/18 [History] Renal Vitamin [Renal Caps Softgel] 1 mg PO DAILY 06/08/18 [History] Sevelamer Carbonate [Renvela] 2.4 gm PO AD 06/08/18 [History] Warfarin [Coumadin] 1 mg PO SA 06/08/18 [History] Warfarin [Coumadin] 2 mg PO SUMOTUWETHFR 06/08/18 [History] levoFLOXacin [Levaquin] 500 mg PO Q48H 06/08/18 [History] 3 Allergy/AdvReac Type Severity Reaction Status Date / Time Amoxicillin Allergy Swelling Verified 05/28/18 15:29 of Lip/Tongue/Throat Penicillins [PCN] Allergy Anaphylaxis Verified 05/28/18 15:29 venom-honey bee Allergy Anaphylaxis Verified 05/28/18 15:29 [bee venom (honey bee)] Review of Systems ROS unobtainable: due to mental status Exam - Vital Signs Vital signs: Initial Vital Signs Temp Pulse BP Pulse Ox 97.5 F L 93 104/51 91 06/08/18 05:27 06/08/18 05:27 06/08/18 05:27 06/08/18 05:27 Vital Signs - Last 8 Hours Temp Pulse Resp BP Pulse Ox 06/08/18 10:57 98.0 F 91 16 103/66 98 06/08/18 09:59 16 99 06/08/18 08:20 97.4 F L 94 18 101/60 97 Intake and Output 06/07/18 06/08/18 06/08/18 23:59 07:59 15:59 Other: Weight 62.4 kg Patient Weight 06/08/18 23:59 Weight 62.4 kg - General Appearance General appearance: well-developed, well-nourished EENT: ATNC Neck: supple Respiratory: rhonchi Cardiology: regular rate, regular rhythm Gastrointestinal: no tenderness Integumentary: warm and dry Neurologic: confused Musculoskeletal: no cyanosis Results - Lab Results 06/08/18 09:45 Most recent lab results Calcium 9.2 mg/dL (8.6-10.3) 06/08/18 09:45 Phosphorus 4.0 mg/dL (2.7-4.5) 06/08/18 09:45 Consult Discharge Plan - Plan Referrals: Adolfo Tobias DO [Primary Care Provider] -
[2018-06-08] MEDS: MetroNIDAZOLE 500 MG/100 ML 500 MG/100 ML BAG IVPB SCH (16:58)
[2018-06-08] MEDS: SEVELAMER PO SCH (17:00)
[2018-06-08] MEDS ORDERED: *HR* Warfarin 1 MG TABLET PO ONE (18:00)
[2018-06-08] MEDS ORDERED: *HR* Heparin 5,000 UNIT/ML VIAL SQ SCH (18:00)
[2018-06-08] MEDS ORDERED: Warfarin perPT PO PRN (18:00)
[2018-06-08] MEDS ORDERED: 0.9 % Sodium Chloride 500 ML IVC ONE (21:36)
--- NOTE | 2018-06-08 21:54 | Event Note ---
Date of Encounter: 06/08/18 Time of Encounter: 21:50 Received text regarding patient with scattered rhonchi throughout and hypotension. The patient lungs with coarse rhonchi particularly in the left anterior upper lobe. The patient reportedly coughing up copious amounts of secretions. Bp is currently 78/46. Will add a 500 ml saline fluid challenge and changed the breathing treatments to q4h. I also added a mucumyst x1. Wiill evaluate for effectiveness.
[2018-06-08] MEDS ORDERED: GuaiFENesin/Dextromethorphan TABLET PO ONE (21:58)
[2018-06-08] MEDS: Scopolamine Patch 1.5 MG PATCH.TD72 TD SCH (22:18)
[2018-06-08] MEDS: Mirtazapine 15 MG TABLET PO SCH (22:20)
[2018-06-09] MEDS: MetroNIDAZOLE 500 MG/100 ML 500 MG/100 ML BAG IVPB SCH ×3 (00:11→16:39)
[2018-06-09] MEDS: Ipratropium/Albuterol Neb 3 ML IH SCH ×6 (00:27→20:35)
[2018-06-09 07:42] LABS: INR 3.2; Prothrombin Time 35.7 Seconds (9.4-12.1)
[2018-06-09 08:29] LABS: Hepatitis B Surface Antigen Nonreactive (Nonreactive)
[2018-06-09] MEDS: Loratadine 10 MG TABLET PO SCH (08:42)
[2018-06-09] MEDS: Renal Vitamin 1 CAP CAPSULE PO SCH (08:42)
[2018-06-09] MEDS: SEVELAMER PO SCH ×3 (08:42→17:00)
[2018-06-09] MEDS: Finasteride 5 MG TABLET PO SCH (08:42)
[2018-06-09] MEDS: *HR* Amiodarone 200 MG TABLET PO SCH (08:43)
[2018-06-09] MEDS: Lactobacillus 1 EACH CAP.SPRINK PO SCH ×2 (08:43→21:15)
--- NOTE | 2018-06-09 13:43 | Internal Med Progress Note ---
Date of Encounter: 06/09/18 Time of Encounter: 13:43 - Assessment and plan (1) PNA (pneumonia) Current Visit: Yes Status: Acute Assessment and plan: Multilobar pneumonia. Most likely related to aspiration. On broad-spectrum antibiotics at this time. We will await culture results. High risk for complications. Qualifiers: Pneumonia type: aspiration pneumonia Aspiration pneumonia type: unspecified Laterality: right Lung location: upper lobe of lung Qualified Code(s): J69.0 - Pneumonitis due to inhalation of food and vomit (2) Primary amyloidosis of light chain type Current Visit: Yes Status: Chronic Assessment and plan: With end-stage renal disease and on hemodialysis. (3) CHF (congestive heart failure) Current Visit: Yes Status: Chronic Assessment and plan: Most recent echocardiogram shows EF of 55%. Currently patient does not appear to be volume overloaded. He does have a large right pleural effusion. We will hold diuretics for now due to low blood pressure. Qualifiers: Heart failure type: diastolic Heart failure chronicity: chronic Qualified Code(s): I50.32 - Chronic diastolic (congestive) heart failure (4) Hypertension Current Visit: Yes Status: Chronic Assessment and plan: Patient is currently hypotensive. We will hold antihypertensives. Qualifiers: Hypertension type: essential hypertension Qualified Code(s): I10 - Essential (primary) hypertension (5) ESRD (end stage renal disease) on dialysis Current Visit: Yes Status: Chronic Assessment and plan: Nephrology consulted. Dialysis per nephrology recommendations. (6) Anemia in chronic kidney disease, on chronic dialysis Current Visit: Yes Status: Chronic Assessment and plan: Will check CBC tomorrow. (7) Atrial fibrillation Current Visit: Yes Status: Chronic Assessment and plan: Rate controlled and in regular rhythm at this time. On anticoagulation with Coumadin Qualifiers: Atrial fibrillation type: chronic Qualified Code(s): I48.2 - Chronic atrial fibrillation (8) COPD (chronic obstructive pulmonary disease) Current Visit: Yes Status: Chronic Assessment and plan: Patient currently is wheezing bilaterally. On bronchodilators. We will add steroids. Qualifiers: COPD type: unspecified COPD Qualified Code(s): J44.9 - Chronic obstructive pulmonary disease, unspecified (9) Chronic respiratory failure with hypoxia Current Visit: Yes Status: Chronic Assessment and plan: On O2 supplementation. Acute on chronic respiratory failure. Currently on 5 L O2. We will wean FiO2 as tolerated. (10) Malnutrition Current Visit: Yes Status: Chronic Assessment and plan: Related to comorbidities and age. Nutrition consulted. Supplemental any obstruction as tolerated. Qualifiers: Malnutrition type: protein-calorie malnutrition Protein-calorie malnutrition severity: unspecified severity Qualified Code(s): E46 - Unspecified protein-calorie malnutrition (11) Physical deconditioning Current Visit: Yes Status: Chronic Assessment and plan: We will consult PT OT for evaluation. (12) Pleural effusion Current Visit: Yes Status: Acute Assessment and plan: Large right pleural effusion. Patient will need thoracentesis. Will hold Coumadin for now. Consult IR for thoracentesis once INR is less than 2. (13) DVT prophylaxis Current Visit: Yes Status: Acute Assessment and plan: On Coumadin but will hold for now in anticipation for thoracentesis. (14) Hypotension Current Visit: Yes Status: Acute Assessment and plan: Patient is currently hypotensive. We will give a small fluid bolus. Not able to be aggressive with fluids mainly because of patient's history of congestive heart failure and end-stage renal disease and is DNR DNI status. If he does not respond to fluid bolus, will consider pressors. Check lactic acid. Qualifiers: Hypotension type: other hypotension type Qualified Code(s): I95.89 - Other hypotension - Time Spent With Patient Total time spent is greater than 50% in coordination of care (as documented) at patient's floor/unit and/or counseling patient: - Subjective Interval history: Seen patient earlier today. His blood pressure has been low overnight. He is awake and alert and answering questions appropriately. He denies any chest pain but does have difficulty in breathing. No fever reported overnight. - Constitutional Vitals: Temp Pulse Resp BP Pulse Ox 97.4 F L 88 16 80/42 90 06/09/18 10:00 06/09/18 10:00 06/09/18 10:00 06/09/18 10:00 06/09/18 10:00 General appearance: Present: cachectic, A&O X 3, pleasant - Respiratory Respiratory exam: Present: prolonged expiratory phase, wheezes. Absent: accessory muscle use, rales, rhonchi Additional comments: Coarse breath sounds bilaterally - Cardiovascular Cardiovascular exam: Present: RRR, +S1, +S2. Absent: diastolic murmur, gallop, rubs, systolic murmur - GI/Abdominal GI/Abdominal exam: Present: normal bowel sounds, soft, no peritoneal signs. Absent: distended, tenderness - Extremities Exam Extremities exam: Present: warm, radial pulses palpable and symmetrical. Absent : calf tenderness, cyanotic, pedal edema Internal Medicine: Result - Labs CBC & Chem 7: 06/08/18 09:45 - ABG Interpretation ABG results: PT/INR, D-dimer PT 35.7 Seconds (9.4-12.1) H 06/09/18 07:08 Consult Discharge Plan - Plan Referrals: Adolfo Tobias DO [Primary Care Provider] -
[2018-06-09] MEDS ORDERED: 0.9 % Sodium Chloride 250 ML IV ONE (14:00)
[2018-06-09 14:26] LABS: Basophils # 0.1 K/mcL (0.0-0.2); Eosinophils # 0.3 K/mcL (0.0-0.6); Eosinophils % 4.1 %; Hematocrit 30.1 % (37.5-50.1); Hemoglobin 10.5 g/dL (12.9-16.9); Immature Granulocytes % 0.2 % (0-4); Lymphocytes # 0.3 K/mcL (0.6-4.6); Lymphocytes % 4.7 %; Mean Corpuscular HGB Conc 34.9 g/dL (31.6-35.5); Mean Corpuscular Hemoglobin 30.6 pg (28.0-33.3); Mean Corpuscular Volume 87.8 fL (83.0-100.0); Mean Platelet Volume 12.8 fL (9.4-12.4); Monocytes # 1.1 K/mcL (0.0-1.3); Monocytes % 18.6 %; Neutrophils # 4.4 K/mcL (1.6-8.9); Nucleated Red Blood Cells 0.7 /100 WBC (0); Platelet Count 127 K/mcL (140-400); Red Blood Count 3.43 M/mcL (4.19-5.50); Red Cell Distribution Width 19.2 % (11.5-14.5); Segmented Neutrophils % 71.4 %
[2018-06-09 14:42] LABS: Platelet Estimate Normal (Normal)
[2018-06-09 14:43] LABS: Anisocytosis 1+ (Not Present); Poikilocytosis 1+ (Not Present)
[2018-06-09 14:44] LABS: Spherocytes 1+ (Not Present)
[2018-06-09 14:45] LABS: Ovalocytes 1+ (Not Present); Target Cells 1+ (Not Present)
[2018-06-09] MEDS: methylPREDNISolone 125 MG/2 ML VIAL IVP SCH ×2 (15:30→16:40)
--- NOTE | 2018-06-09 16:41 | Event Note ---
Date of Encounter: 06/09/18 Time of Encounter: 16:41 Blood pressure improved after patient received normal saline bolus. We will continue to monitor. Lactic acid normal. Heart rate is also normal. Does not appear to be hemodynamically unstable at this time. No indication for pressor support. We will continue to monitor vitals closely.
[2018-06-09] MEDS: Mirtazapine 15 MG TABLET PO SCH (21:17)
[2018-06-09] MEDS: GuaiFENesin Liq 200 MG/10 ML UDC PO PRN (21:17)
--- NOTE | 2018-06-09 22:28 | Nephrology Progress Note ---
Date of Encounter: 06/09/18 Time of Encounter: 22:26 - Assessment and Plan (1) HCAP (healthcare-associated pneumonia) Current Visit: No Status: Acute Patient is on antibiotics. Observe for improvement. This could also be aspiration pneumonia. (2) ESRD (end stage renal disease) on dialysis Current Visit: Yes Status: Chronic HD MWF. Renal vitamins. Renal dose medications. Renal diet. Additional dialysis and ultrafiltration as needed. Plan for dialysis tomorrow (3) Anemia in chronic kidney disease, on chronic dialysis Current Visit: Yes Status: Chronic Monitor and transfuse as needed. (4) Hypertension Current Visit: Yes Status: Chronic Blood pressures overall controlled, it is actually a little low. We will need to monitor for sepsis secondary to his pneumonia. Qualifiers: Hypertension type: essential hypertension Qualified Code(s): I10 - Essential (primary) hypertension Subjective Principal diagnosis: ESRD Interval history: Patient was seen and evaluated. His mental status is slightly better than it was just day. He does not answer questions, but he does not his head. He indicated that he is having trouble with eating by himself. Objective - Vital Signs Vital signs: Vital Signs Temp Pulse Resp BP Pulse Ox 06/09/18 20:38 18 92 06/09/18 19:13 98.2 F 92 17 94/58 93 06/09/18 16:00 16 94 06/09/18 15:56 98.9 F 83 18 94/57 92 06/09/18 11:48 16 95 06/09/18 10:00 97.4 F L 88 16 80/42 90 06/09/18 07:45 17 95 06/09/18 06:51 97.8 F 85 16 84/37 94 06/09/18 05:06 18 84/37 95 06/09/18 04:59 98.9 F 83 17 90/34 94 06/09/18 02:21 98.1 F 78 19 113/73 97 06/09/18 00:31 12 96 06/08/18 22:54 20 95 Intake and Output 06/09/18 06/09/18 06/09/18 07:59 15:59 23:59 Intake Total 100 / 100 340 / 340 Balance 100 / 100 340 / 340 Intake: IV Fluids 100 / 100 100 / 100 Flagyl Premix 500 MG/100 ML 500 100 / 100 100 / 100 mg In 100 ml @ 100 mls/hr IVPB Q8HR [facility] Rx#:[id number] Oral 240 / 240 Other: Meal Lunch Percent of Meal Consumed 30% Weight 62 kg Patient Weight 06/09/18 23:59 Weight 62 kg - General Appearance General appearance: Present: well-developed, well-nourished EENT: Present: ATNC Neck: Present: supple Respiratory: Present: rhonchi Cardiology: Present: no edema, regular rate Dialysis Vascular Access: Arteriovenous Fistula thrill: Yes bruit: Yes Integumentary: Present: warm and dry Psychiatric: Present: mood/affect appropriate - Lab 06/09/18 14:07 06/08/18 09:45 Most recent lab results Calcium 9.2 mg/dL (8.6-10.3) 06/08/18 09:45 Phosphorus 4.0 mg/dL (2.7-4.5) 06/08/18 09:45 Consult Discharge Plan - Plan Referrals: Adolfo Tobias DO [Primary Care Provider] -
[2018-06-10] MEDS: MetroNIDAZOLE 500 MG/100 ML 500 MG/100 ML BAG IVPB SCH ×3 (00:06→14:20)
[2018-06-10] MEDS: methylPREDNISolone 125 MG/2 ML VIAL IVP SCH ×3 (00:06→15:27)
[2018-06-10] MEDS: Ipratropium/Albuterol Neb 3 ML IH SCH ×6 (00:14→20:29)
[2018-06-10 06:02] LABS: Hematocrit 29.8 % (37.5-50.1); Hemoglobin 10.2 g/dL (12.9-16.9); Immature Granulocytes % 0.2 % (0-4); Lymphocytes # 0.1 K/mcL (0.6-4.6); Mean Corpuscular HGB Conc 34.2 g/dL (31.6-35.5); Mean Corpuscular Hemoglobin 29.1 pg (28.0-33.3); Mean Corpuscular Volume 84.9 fL (83.0-100.0); Mean Platelet Volume 13.4 fL (9.4-12.4); Monocytes # 0.1 K/mcL (0.0-1.3); Nucleated Red Blood Cells 0.8 /100 WBC (0); Platelet Count 152 K/mcL (140-400); Red Blood Count 3.51 M/mcL (4.19-5.50); Red Cell Distribution Width 18.7 % (11.5-14.5); Segmented Neutrophils % 96.8 %
[2018-06-10 06:05] LABS: INR 2.6
[2018-06-10 06:14] LABS: Neutrophils # 4.7 K/mcL (1.6-8.9)
[2018-06-10 06:16] LABS: Calcium 8.8 mg/dL (8.6-10.3)
[2018-06-10 06:32] LABS: Anisocytosis 2+ (Not Present); Burr Cells 1+ (Not Present); Large Platelets Present (Not Present); Platelet Estimate Normal (Normal); Poikilocytosis 2+ (Not Present); Target Cells 1+ (Not Present)
[2018-06-10] MEDS ORDERED: 0.9 % Sodium Chloride 250 ML IVC PRN (07:13)
[2018-06-10] MEDS ORDERED: 0.9 % Sodium Chloride 1,000 ML PRIME SCH (07:15)
[2018-06-10] MEDS ORDERED: Albumin 25% 12.5gm/50mL 25.0 GM/100 ML IV.SOLN ONE (07:31)
[2018-06-10] MEDS ORDERED: 0.9 % Sodium Chloride 2,000 ML ONE (07:32)
[2018-06-10] MEDS ORDERED: SEVELAMER PO SCH (08:00)
[2018-06-10] MEDS: Finasteride 5 MG TABLET PO SCH (08:30)
[2018-06-10] MEDS: Loratadine 10 MG TABLET PO SCH (08:30)
[2018-06-10] MEDS: Lactobacillus 1 EACH CAP.SPRINK PO SCH ×2 (08:30→20:46)
[2018-06-10] MEDS: Renal Vitamin 1 CAP CAPSULE PO SCH (08:30)
[2018-06-10] MEDS ORDERED: Albumin 25% 12.5gm/50mL 12.5 GM/50 ML IV.SOLN IVPB ONE (08:43)
[2018-06-10] MEDS: Albumin 25% 12.5gm/50mL 12.5 GM/50 ML IV.SOLN IVPB PRN (10:15)
--- NOTE | 2018-06-10 11:13 | Internal Med Progress Note ---
Date of Encounter: 06/10/18 Time of Encounter: 10:10 - Assessment and plan (1) PNA (pneumonia) Current Visit: Yes Status: Acute Assessment and plan: Continue current antibiotics. Pending speech therapy evaluation and barium swallow. Blood cultures are currently pending. WBC count remains normal. With large right pleural effusion. Plan for thoracentesis once INR is less than 2. Qualifiers: Pneumonia type: aspiration pneumonia Aspiration pneumonia type: unspecified Laterality: right Lung location: upper lobe of lung Qualified Code(s): J69.0 - Pneumonitis due to inhalation of food and vomit (2) Hypotension Current Visit: Yes Status: Acute Assessment and plan: Patient hypertensive. Discussed with nephrology. We will start him on midodrine. 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 (4) CHF (congestive heart failure) Current Visit: Yes Status: Chronic Assessment and plan: Volume management with hemodialysis. Patient does not appear to be fluid overloaded but he does have large right-sided pleural effusion. Qualifiers: Heart failure type: diastolic Heart failure chronicity: chronic Qualified Code(s): I50.32 - Chronic diastolic (congestive) heart failure (5) ESRD (end stage renal disease) on dialysis Current Visit: Yes Status: Chronic Assessment and plan: Continue dialysis per nephrology recommendations. (6) Anemia in chronic kidney disease, on chronic dialysis Current Visit: Yes Status: Chronic Assessment and plan: Hemoglobin 10.2. Epogen with dialysis per nephrology recommendations (7) Atrial fibrillation Current Visit: Yes Status: Chronic Assessment and plan: Rate controlled. On anticoagulation with Coumadin but Coumadin currently held for thoracentesis. Qualifiers: Atrial fibrillation type: chronic Qualified Code(s): I48.2 - Chronic atrial fibrillation (8) COPD (chronic obstructive pulmonary disease) Current Visit: Yes Status: Chronic Assessment and plan: Started patient on Solu-Medrol. Saturating well at this time. We will been to oral steroids. Continue bronchodilators Qualifiers: COPD type: unspecified COPD Qualified Code(s): J44.9 - Chronic obstructive pulmonary disease, unspecified (9) Chronic respiratory failure with hypoxia Current Visit: Yes Status: Chronic Assessment and plan: Continue O2 supplementation. (10) Malnutrition Current Visit: Yes Status: Chronic Assessment and plan: Nutrition consulted. We will follow recommendations. Continue supplemental nutrition with ensure Qualifiers: Malnutrition type: protein-calorie malnutrition Protein-calorie malnutrition severity: unspecified severity Qualified Code(s): E46 - Unspecified protein-calorie malnutrition (11) Physical deconditioning Current Visit: Yes Status: Chronic Assessment and plan: PT OT consulted for evaluation (12) Pleural effusion Current Visit: Yes Status: Acute Assessment and plan: Large right pleural effusion. Plan for thoracentesis once INR less than 2. (13) DVT prophylaxis Current Visit: Yes Status: Acute Assessment and plan: On Coumadin. Currently being held for planned procedure. - Time Spent With Patient Total time spent is greater than 50% in coordination of care (as documented) at patient's floor/unit and/or counseling patient: - Subjective Interval history: Patient is doing well. Continues to have cough and gurgling with some shortness of breath. Denies any chest pain or palpitations. No fever reported overnight. - Constitutional Vitals: Temp Pulse Resp BP Pulse Ox 97.8 F 88 12 96/56 94 06/10/18 06:48 06/10/18 06:48 06/10/18 07:41 06/10/18 06:48 06/10/18 07:41 General appearance: Present: cachectic, A&O X 3, pleasant, answers questions appropriately - Neck Neck exam general surgery: Present: supple, trachea midline. Absent: lymphadenopathy - Respiratory Respiratory exam: Present: prolonged expiratory phase. Absent: accessory muscle use, rales, rhonchi, wheezes Additional comments: Coarse breath sounds bilaterally - Cardiovascular Cardiovascular exam: Present: RRR, +S1, +S2. Absent: diastolic murmur, gallop, rubs, systolic murmur - GI/Abdominal GI/Abdominal exam: Present: normal bowel sounds, soft, no peritoneal signs. Absent: distended, tenderness - Extremities Exam Extremities exam: Present: warm, radial pulses palpable and symmetrical. Absent : calf tenderness, cyanotic, pedal edema - Neurological Exam Neurological exam: Present: alert, oriented X3, no focal deficits. Absent: facial droop, speech deficit Internal Medicine: Result - Labs CBC & Chem 7: 06/10/18 04:55 06/10/18 04:55 Labs: Short CBC 06/09/18 06/10/18 Range/Units 14:07 04:55 WBC 6.1 4.9 (4.3-11.1) K/mcL Hgb 10.5 L 10.2 L (12.9-16.9) g/dL Hct 30.1 L 29.8 L (37.5-50.1) % Plt Count 127 L 152 (140-400) K/mcL Neutrophils # 4.4 4.7 (1.6-8.9) K/mcL BMP 06/10/18 04:55 Sodium 134 L Potassium 5.0 Chloride 95 L Carbon Dioxide 24 BUN 91 H Creatinine 5.25 H Glucose 202 H Calcium 8.8 - ABG Interpretation ABG results: PT/INR, D-dimer PT 29.0 Seconds (9.4-12.1) H 06/10/18 04:55 Consult Discharge Plan - Plan Referrals: Adolfo Tobias DO [Primary Care Provider] -
--- NOTE | 2018-06-10 14:11 | Nephrology Progress Note ---
Date of Encounter: 06/10/18 Time of Encounter: 11:00 - Assessment and Plan (1) ESRD (end stage renal disease) on dialysis Current Visit: Yes Status: Chronic Dialysis today (Sunday). He received Albumin with HD to help support intradialytic BPs. He may need Midodrin going forward. (2) Hypoalbuminemia Current Visit: Yes Status: Acute (3) Hypotension Current Visit: Yes Status: Acute Qualifiers: Hypotension type: hemodialysis-associated hypotension Qualified Code(s): I95.3 - Hypotension of hemodialysis Subjective Principal diagnosis: ESRD Interval history: The pt was s/e while on HD. He did not affirm N/V/F/C but did report having a cough since before admission. He denied chest pain while on HD. Objective - Vital Signs Vital signs: Vital Signs Temp Pulse Resp BP Pulse Ox 06/10/18 12:00 95/51 06/10/18 11:45 90/51 06/10/18 11:30 90/51 06/10/18 11:15 93/51 06/10/18 11:00 91/57 06/10/18 10:45 90/49 06/10/18 10:30 92/51 06/10/18 10:15 92/54 06/10/18 10:00 97.9 F 22 93/54 06/10/18 07:41 12 94 06/10/18 06:48 97.8 F 88 12 96/56 94 06/10/18 04:24 12 97 06/10/18 04:04 97.4 F L 89 18 95/60 94 06/10/18 00:16 14 95 06/10/18 00:07 98.3 F 101 18 94/60 94 06/09/18 20:38 18 92 06/09/18 19:13 98.2 F 92 17 94/58 93 06/09/18 16:00 16 94 06/09/18 15:56 98.9 F 83 18 94/57 92 Intake and Output 06/09/18 06/10/18 06/10/18 23:59 07:59 15:59 Intake Total 100 / 100 600 / 600 Balance 100 / 100 600 / 600 Intake: IV Fluids 100 / 100 Flagyl Premix 500 MG/100 ML 500 100 / 100 mg In 100 ml @ 100 mls/hr IVPB Q8HR [facility] Rx#:[id number] Oral 0 / 0 Intake, Rinseback and Flushes 600 / 600 Other: Meal Breakfast Percent of Meal Consumed 85% Hemodialysis Net Fluid Removed 386 (mL) - General Appearance General appearance: Present: cachectic, chronically ill, fatigue, frail EENT: Present: ATNC, PERRL Neck: Present: supple Respiratory: Present: course breath sounds Cardiology: Present: no edema, normal S1, normal S2 Dialysis Vascular Access: Arteriovenous Fistula thrill: Yes bruit: Yes Gastrointestinal: Present: normoactive bowel sounds, no tenderness, no guarding Integumentary: Present: warm and dry Neurologic: Present: no focal deficit, no asterixis, alert and oriented x3 Musculoskeletal: Present: no cyanosis, no clubbing Additional Comments: Flat affect - Lab 06/10/18 04:55 06/10/18 04:55 Most recent lab results Calcium 8.8 mg/dL (8.6-10.3) 06/10/18 04:55 Phosphorus 4.0 mg/dL (2.7-4.5) 06/08/18 09:45 Consult Discharge Plan - Plan Referrals: Adolfo Tobias DO [Primary Care Provider] -
[2018-06-10] MEDS: Levofloxacin 500 MG/100 ML 500 MG/100 ML BAG IVPB SCH (14:19)
[2018-06-10] MEDS: *HR* Amiodarone 200 MG TABLET PO SCH (14:19)
[2018-06-10] MEDS ORDERED: Vancomycin 500 MG in 0.9 % Sodium Chloride Mini Bag 100 ML IVPB ONE (16:00)
[2018-06-10] MEDS: MethylPREDNISolone 40 MG/ML VIAL IVP SCH (17:37)
[2018-06-10] MEDS: Mirtazapine 15 MG TABLET PO SCH (20:47)
[2018-06-11] MEDS: Ipratropium/Albuterol Neb 3 ML IH SCH ×6 (00:01→20:16)
[2018-06-11] MEDS: MetroNIDAZOLE 500 MG/100 ML 500 MG/100 ML BAG IVPB SCH ×3 (00:21→16:12)
[2018-06-11] MEDS: MethylPREDNISolone 40 MG/ML VIAL IVP SCH ×3 (00:22→16:12)
[2018-06-11] MEDS: GuaiFENesin Liq 200 MG/10 ML UDC PO PRN (00:34)
[2018-06-11 05:29] LABS: Hematocrit 30.1 % (37.5-50.1); Hemoglobin 10.5 g/dL (12.9-16.9); Immature Granulocytes % 0.6 % (0-4); Lymphocytes # 0.1 K/mcL (0.6-4.6); Lymphocytes % 1.3 %; Mean Corpuscular HGB Conc 34.9 g/dL (31.6-35.5); Mean Corpuscular Hemoglobin 30.3 pg (28.0-33.3); Mean Corpuscular Volume 86.7 fL (83.0-100.0); Mean Platelet Volume 12.5 fL (9.4-12.4); Monocytes # 0.3 K/mcL (0.0-1.3); Monocytes % 3.1 %; Neutrophils # 8.5 K/mcL (1.6-8.9); Nucleated Red Blood Cells 0.4 /100 WBC (0); Platelet Count 116 K/mcL (140-400); Red Blood Count 3.47 M/mcL (4.19-5.50); Red Cell Distribution Width 19.3 % (11.5-14.5)
[2018-06-11 05:41] LABS: INR 2.2; Prothrombin Time 25.3 Seconds (9.4-12.1)
[2018-06-11 05:52] LABS: Calcium 9.1 mg/dL (8.6-10.3); Potassium 4.2 mEq/L (3.5-5.1)
[2018-06-11 05:54] LABS: Hypochromasia Present (Not Present); Microcytosis Present (Not Present); Platelet Estimate Slight Decrease (Normal); Poikilocytosis 1+ (Not Present); Target Cells 1+ (Not Present)
[2018-06-11 05:58] LABS: Ovalocytes 1+ (Not Present)
[2018-06-11] MEDS: Renal Vitamin 1 CAP CAPSULE PO SCH (09:43)
[2018-06-11] MEDS: Lactobacillus 1 EACH CAP.SPRINK PO SCH ×2 (09:43→21:41)
[2018-06-11] MEDS: *HR* Amiodarone 200 MG TABLET PO SCH (09:43)
[2018-06-11] MEDS: Loratadine 10 MG TABLET PO SCH (09:44)
[2018-06-11] MEDS: Finasteride 5 MG TABLET PO SCH (09:44)
--- NOTE | 2018-06-11 12:14 | Nephrology Progress Note ---
Date of Encounter: 06/11/18 Time of Encounter: 12:09 - Assessment and Plan (1) ESRD (end stage renal disease) on dialysis Current Visit: Yes Status: Chronic HD MWF, continue current regimen. Avoid nephrotoxins and renal dose all medications. Plan for HD tomorrow. (2) Hypoalbuminemia Current Visit: Yes Status: Acute Albumin is 3.4, continue to encourage protein in diet. (3) Physical deconditioning Current Visit: Yes Status: Chronic Recommend PT/OT. Subjective Principal diagnosis: ESRD Interval history: Pt seen and examined. Resting with eyes closed. Objective - Vital Signs Vital signs: Vital Signs Temp Pulse Resp BP Pulse Ox 06/11/18 07:37 18 94 06/11/18 06:55 97.8 F 93 18 109/62 94 06/11/18 04:34 16 94 06/11/18 00:01 18 92 06/10/18 22:04 98.3 F 109 18 111/53 94 06/10/18 20:29 20 85 06/10/18 15:50 18 95 06/10/18 15:40 98.2 F 89 18 102/50 95 06/10/18 14:00 97.3 F L 18 110/59 06/10/18 13:30 106/55 06/10/18 13:15 108/54 06/10/18 13:00 94/57 06/10/18 12:45 98/52 06/10/18 12:30 93/51 06/10/18 12:15 94/52 Intake and Output 06/10/18 06/11/18 06/11/18 23:59 07:59 15:59 Intake Total 100 / 100 80 / 80 Balance 100 / 100 80 / 80 Intake: IV Fluids 100 / 100 Flagyl Premix 500 MG/100 ML 500 100 / 100 mg In 100 ml @ 100 mls/hr IVPB Q8HR [facility] Rx#:[id number] Oral 80 / 80 Other: Meal Dinner Breakfast Percent of Meal Consumed 10% 55% Stool Size Small Stool Consistency soft Stool Color Brown # Bowel Movements 1 Weight 63 kg Blood Glucose* 162 Patient Weight 06/11/18 23:59 Weight 63 kg - General Appearance General appearance: Present: chronically ill, frail EENT: Present: ATNC Neck: Present: supple Respiratory: Present: rhonchi Cardiology: Present: edema (Trace bilateral lower extremeity edema.), normal S1 , normal S2 Gastrointestinal: Present: normoactive bowel sounds, no tenderness, no guarding Integumentary: Present: no rash, warm and dry Additional Comments: Alert to self. Very drowsy with examination. Psychiatric: Present: mood/affect appropriate, cooperative - Lab 06/11/18 04:56 06/11/18 04:56 Most recent lab results Calcium 9.1 mg/dL (8.6-10.3) 06/11/18 04:56 Phosphorus 4.0 mg/dL (2.7-4.5) 06/08/18 09:45 Consult Discharge Plan - Plan Referrals: Adolfo Tobias DO [Primary Care Provider] -
--- NOTE | 2018-06-11 19:25 | Internal Med Progress Note ---
Date of Encounter: 06/12/18 Time of Encounter: 11:00 - Assessment and plan (1) PNA (pneumonia) Current Visit: Yes Status: Acute Assessment and plan: Patient with multi lobular consolidation on CT scan of the chest Swallow eval demonstrated aspiration with thin and nectar thick barium Will continue coverage with IV Levaquin, vancomycin and Flagyl Qualifiers: Pneumonia type: aspiration pneumonia Aspiration pneumonia type: unspecified Laterality: right Lung location: upper lobe of lung Qualified Code(s): J69.0 - Pneumonitis due to inhalation of food and vomit (2) Pleural effusion Current Visit: Yes Status: Acute Assessment and plan: CT of the chest also large right pleural effusion. Plan for thoracentesis once INR less than 2. (3) COPD (chronic obstructive pulmonary disease) Current Visit: Yes Status: Chronic Assessment and plan: Patient with COPD exacerbation secondary to the above with continued wheezing rhonchi and rales on exam Will continue IV Solu-Medrol Qualifiers: COPD type: unspecified COPD Qualified Code(s): J44.9 - Chronic obstructive pulmonary disease, unspecified (4) Chronic respiratory failure with hypoxia Current Visit: Yes Status: Chronic Assessment and plan: Continue O2 supplementation. (5) CHF (congestive heart failure) Current Visit: Yes Status: Chronic Assessment and plan: Volume management with hemodialysis. Patient does not appear to be fluid overloaded but he does have large right- sided pleural effusion. Qualifiers: Heart failure type: diastolic Heart failure chronicity: chronic Qualified Code(s): I50.32 - Chronic diastolic (congestive) heart failure (6) ESRD (end stage renal disease) on dialysis Current Visit: Yes Status: Chronic Assessment and plan: Continue dialysis per nephrology recommendations. 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 (8) Anemia in chronic kidney disease, on chronic dialysis Current Visit: Yes Status: Chronic Assessment and plan: Hemoglobin stable Continue Epogen with dialysis per nephrology recommendations (9) Atrial fibrillation Current Visit: Yes Status: Chronic Assessment and plan: Rate controlled. On anticoagulation with Coumadin but Coumadin currently held for thoracentesis. Qualifiers: Atrial fibrillation type: chronic Qualified Code(s): I48.2 - Chronic atrial fibrillation (10) Malnutrition Current Visit: Yes Status: Chronic Assessment and plan: Nutrition consulted. Continue supplemental nutrition with ensure Qualifiers: Malnutrition type: protein-calorie malnutrition Protein-calorie malnutrition severity: unspecified severity Qualified Code(s): E46 - Unspecified protein-calorie malnutrition (11) DVT prophylaxis Current Visit: Yes Status: Acute Assessment and plan: On Coumadin. Currently being held for planned procedure. - Time Spent With Patient Total time spent is greater than 50% in coordination of care (as documented) at patient's floor/unit and/or counseling patient: - Subjective Interval history: Patient still with shortness of breath requiring supplemental oxygenation due to multilobular pneumonia in right large pleural effusion. - Constitutional Vitals: Temp Pulse Resp BP Pulse Ox 97.8 F 98 16 105/63 98 06/11/18 19:14 06/11/18 19:14 06/11/18 19:14 06/11/18 19:14 06/11/18 19:14 General appearance: Present: cachectic, A&O X 3, pleasant, no acute distress, answers questions appropriately - Respiratory Respiratory exam: Present: rales, rhonchi, wheezes. Absent: accessory muscle use, tachypnea - Cardiovascular Cardiovascular exam: Present: RRR, +S1, +S2. Absent: diastolic murmur, gallop, rubs, systolic murmur - GI/Abdominal GI/Abdominal exam: Present: soft. Absent: distended - Extremities Exam Extremities exam: Absent: pedal edema - Skin Skin exam: Present: normal color Internal Medicine: Result - Labs CBC & Chem 7: 06/12/18 05:23 06/12/18 05:23 Labs: Short CBC 06/11/18 Range/Units 04:56 WBC 8.9 D (4.3-11.1) K/mcL Hgb 10.5 L (12.9-16.9) g/dL Hct 30.1 L (37.5-50.1) % Plt Count 116 L (140-400) K/mcL Neutrophils # 8.5 (1.6-8.9) K/mcL BMP 06/11/18 04:56 Sodium 137 Potassium 4.2 Chloride 94 L Carbon Dioxide 31 H BUN 49 H Creatinine 3.29 H Glucose 156 H Calcium 9.1 - ABG Interpretation ABG results: PT/INR, D-dimer PT 25.3 Seconds (9.4-12.1) H 06/11/18 04:56 Consult Discharge Plan - Plan Referrals: Adolfo Tobias DO [Primary Care Provider] -
[2018-06-11] MEDS: Mirtazapine 15 MG TABLET PO SCH (21:41)
[2018-06-11] MEDS: Scopolamine Patch 1.5 MG PATCH.TD72 TD SCH (21:41)
[2018-06-12] MEDS: Ipratropium/Albuterol Neb 3 ML IH SCH ×6 (00:01→20:04)
[2018-06-12] MEDS: MetroNIDAZOLE 500 MG/100 ML 500 MG/100 ML BAG IVPB SCH ×3 (00:47→16:19)
[2018-06-12] MEDS: MethylPREDNISolone 40 MG/ML VIAL IVP SCH ×3 (00:48→16:19)
[2018-06-12 05:42] LABS: Hematocrit 30.5 % (37.5-50.1); Hemoglobin 10.6 g/dL (12.9-16.9); Immature Granulocytes % 0.4 % (0-4); Lymphocytes # 0.1 K/mcL (0.6-4.6); Lymphocytes % 1.2 %; Mean Corpuscular HGB Conc 34.8 g/dL (31.6-35.5); Mean Corpuscular Hemoglobin 29.9 pg (28.0-33.3); Mean Corpuscular Volume 85.9 fL (83.0-100.0); Monocytes # 0.3 K/mcL (0.0-1.3); Nucleated Red Blood Cells 0.3 /100 WBC (0); Platelet Count 127 K/mcL (140-400); Red Blood Count 3.55 M/mcL (4.19-5.50); Segmented Neutrophils % 95.4 %
[2018-06-12 05:45] LABS: Neutrophils # 9.3 K/mcL (1.6-8.9)
[2018-06-12 05:47] LABS: INR 1.8; Prothrombin Time 20.3 Seconds (9.4-12.1)
[2018-06-12 06:02] LABS: Calcium 9.3 mg/dL (8.6-10.3); Potassium 4.6 mEq/L (3.5-5.1)
[2018-06-12] MEDS: Scopolamine Patch 1.5 MG PATCH.TD72 TD SCH (06:11)
[2018-06-12] MEDS ORDERED: 0.9 % Sodium Chloride 250 ML IVC PRN (06:28)
[2018-06-12 06:43] LABS: Platelet Estimate Normal (Normal); Toxic Granulation Present (Not Present)
[2018-06-12 06:44] LABS: Large Platelets Present (Not Present); Reactive Lymphocytes Present (Not Present)
[2018-06-12 06:45] LABS: Anisocytosis 1+ (Not Present)
--- NOTE | 2018-06-12 07:55 | Internal Med Progress Note ---
Date of Encounter: 06/12/18 Time of Encounter: 11:00 - Assessment and plan (1) Pleural effusion Current Visit: Yes Status: Acute Assessment and plan: CT of the chest also showed large right pleural effusion status post thoracentesis on 06/12/18 with 1500 mL of clear fluid that was removed. (2) PNA (pneumonia) Current Visit: Yes Status: Acute Assessment and plan: Patient with multi lobular consolidation on CT scan of the chest Swallow eval demonstrated aspiration with thin and nectar thick barium Patient continues to have gurgling this morning Pulmonology with further recommendations for palliative care consult due to very poor prognosis to dress goals of care. Continue IV cefepime Qualifiers: Pneumonia type: aspiration pneumonia Aspiration pneumonia type: unspecified Laterality: right Lung location: upper lobe of lung Qualified Code(s): J69.0 - Pneumonitis due to inhalation of food and vomit (3) COPD (chronic obstructive pulmonary disease) Current Visit: Yes Status: Chronic Assessment and plan: Patient with COPD exacerbation secondary to the above with continued wheezing rhonchi and rales on exam Will continue IV Solu-Medrol Qualifiers: COPD type: unspecified COPD Qualified Code(s): J44.9 - Chronic obstructive pulmonary disease, unspecified (4) Chronic respiratory failure with hypoxia Current Visit: Yes Status: Chronic Assessment and plan: Continue O2 supplementation. (5) CHF (congestive heart failure) Current Visit: Yes Status: Chronic Assessment and plan: Volume management with hemodialysis. Patient does not appear to be fluid overloaded but he does have large right- sided pleural effusion. Qualifiers: Heart failure type: diastolic Heart failure chronicity: chronic Qualified Code(s): I50.32 - Chronic diastolic (congestive) heart failure (6) ESRD (end stage renal disease) on dialysis Current Visit: Yes Status: Chronic Assessment and plan: Continue dialysis per nephrology recommendations. 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 (8) Anemia in chronic kidney disease, on chronic dialysis Current Visit: Yes Status: Chronic Assessment and plan: Hemoglobin stable Continue Epogen with dialysis per nephrology recommendations (9) Atrial fibrillation Current Visit: Yes Status: Chronic Assessment and plan: Rate controlled. On anticoagulation with Coumadin but Coumadin currently held for thoracentesis. Qualifiers: Atrial fibrillation type: chronic Qualified Code(s): I48.2 - Chronic atrial fibrillation (10) Malnutrition Current Visit: Yes Status: Chronic Assessment and plan: Nutrition consulted. Continue supplemental nutrition with ensure Qualifiers: Malnutrition type: protein-calorie malnutrition Protein-calorie malnutrition severity: unspecified severity Qualified Code(s): E46 - Unspecified protein-calorie malnutrition (11) DVT prophylaxis Current Visit: Yes Status: Acute Assessment and plan: On Coumadin. Currently being held for planned procedure. - Time Spent With Patient Total time spent is greater than 50% in coordination of care (as documented) at patient's floor/unit and/or counseling patient: - Subjective Interval history: Patient still with shortness of breath requiring supplemental oxygenation due to multilobular pneumonia in right large pleural effusion. - Constitutional Vitals: Temp Pulse Resp BP Pulse Ox 97.7 F 96 18 105/45 96 06/12/18 04:29 06/12/18 04:29 06/12/18 07:44 06/12/18 07:44 06/12/18 07:44 General appearance: Present: cachectic, A&O X 3, pleasant, no acute distress, answers questions appropriately Internal Medicine: Result - Labs CBC & Chem 7: 06/17/18 04:31 06/17/18 04:31 Labs: Short CBC 06/12/18 Range/Units 05:23 WBC 9.7 (4.3-11.1) K/mcL Hgb 10.6 L (12.9-16.9) g/dL Hct 30.5 L (37.5-50.1) % Plt Count 127 L (140-400) K/mcL Neutrophils # 9.3 H (1.6-8.9) K/mcL BMP 06/12/18 05:23 Sodium 136 Potassium 4.6 Chloride 95 L Carbon Dioxide 28 BUN 68 H Creatinine 4.22 H Glucose 160 H Calcium 9.3 - ABG Interpretation ABG results: PT/INR, D-dimer PT 20.3 Seconds (9.4-12.1) H 06/12/18 05:23 Consult Discharge Plan - Plan Referrals: Chantel Serrano MD [Partnered Physician] - 06/19/18 1:00 pm (Please follow up as schedule...) Adolfo Tobias DO [Primary Care Provider] - (Patient is from [place]...)
--- NOTE | 2018-06-12 08:44 | Nephrology Progress Note ---
Date of Encounter: 06/12/18 Time of Encounter: 08:42 - Assessment and Plan (1) ESRD (end stage renal disease) on dialysis Current Visit: Yes Status: Chronic HD MWF, continue current regimen. HD ordered for today. Avoid nephrotoxins and renal dose all medications. (2) Hypoalbuminemia Current Visit: Yes Status: Acute Albumin is 3.4, continue to encourage protein in diet. (3) Physical deconditioning Current Visit: Yes Status: Chronic Recommend PT/OT. Subjective Principal diagnosis: ESRD Interval history: Pt seen and examined. Speech therapy at bedside. Objective - Vital Signs Vital signs: Vital Signs Temp Pulse Resp BP Pulse Ox 06/12/18 07:59 97.6 F 99 18 96/63 96 06/12/18 07:44 18 105/45 96 06/12/18 04:29 97.7 F 96 18 105/45 96 06/12/18 04:12 18 97 06/12/18 00:42 97.7 F 97 18 106/62 97 06/12/18 00:03 95 06/12/18 00:02 15 95 06/11/18 20:16 16 95 06/11/18 19:14 97.8 F 98 16 105/63 98 06/11/18 15:51 18 95 06/11/18 15:25 98.0 F 103 16 107/61 96 06/11/18 11:47 18 98 Intake and Output 06/11/18 06/12/18 06/12/18 23:59 07:59 15:59 Intake Total 100 / 100 Balance 100 / 100 Intake: IV Fluids 100 / 100 Flagyl Premix 500 MG/100 ML 500 100 / 100 mg In 100 ml @ 100 mls/hr IVPB Q8HR [facility] Rx#:[id number] Other: Meal Dinner Percent of Meal Consumed 0% # Urine Diapers 1 Weight 64.6 kg Patient Weight 06/12/18 23:59 Weight 64.6 kg - General Appearance General appearance: Present: chronically ill EENT: Present: ATNC, hearing intact, vision intact Neck: Present: supple Respiratory: Present: course breath sounds, rhonchi Cardiology: Present: no edema, normal S1, normal S2 Dialysis Vascular Access: Arteriovenous Fistula thrill: Yes bruit: Yes Gastrointestinal: Present: normoactive bowel sounds, no tenderness, no guarding Integumentary: Present: no rash, warm and dry Neurologic: Present: alert and oriented x3 Psychiatric: Present: mood/affect appropriate, cooperative - Lab 06/12/18 05:23 06/12/18 05:23 Most recent lab results Calcium 9.3 mg/dL (8.6-10.3) 06/12/18 05:23 Phosphorus 4.0 mg/dL (2.7-4.5) 06/08/18 09:45 Consult Discharge Plan - Plan Referrals: Adolfo Tobias DO [Primary Care Provider] -
[2018-06-12] MEDS: Levofloxacin 500 MG/100 ML 500 MG/100 ML BAG IVPB SCH (08:47)
[2018-06-12] MEDS: *HR* Amiodarone 200 MG TABLET PO SCH (08:49)
[2018-06-12] MEDS: Lactobacillus 1 EACH CAP.SPRINK PO SCH ×2 (08:49→20:44)
[2018-06-12] MEDS: Loratadine 10 MG TABLET PO SCH (08:49)
[2018-06-12] MEDS: Renal Vitamin 1 CAP CAPSULE PO SCH (08:49)
[2018-06-12] MEDS: Finasteride 5 MG TABLET PO SCH (08:49)
[2018-06-12] MEDS ORDERED: Albumin 25% 12.5gm/50mL 25.0 GM/100 ML IV.SOLN ONE (10:06)
[2018-06-12] MEDS: Albumin 25% 12.5gm/50mL 12.5 GM/50 ML IV.SOLN IVPB PRN (10:10)
[2018-06-12] MEDS: OXYCODONE Oral CONC 10 MG/0.5 ML ORAL.SYG SL PRN ×2 (10:16→20:44)
--- NOTE | 2018-06-12 17:49 | Internal Med Progress Note ---
Date of Encounter: 06/12/18 Time of Encounter: 11:00 - Assessment and plan (1) Pleural effusion Current Visit: Yes Status: Acute Assessment and plan: CT of the chest also large right pleural effusion. INR now less than 2.0 so will consult IR to plan for thoracentesis on 06/13/18 (2) PNA (pneumonia) Current Visit: Yes Status: Acute Assessment and plan: Patient with multi lobular consolidation on CT scan of the chest Swallow eval demonstrated aspiration with thin and nectar thick barium Will continue coverage with IV Levaquin, vancomycin and Flagyl Qualifiers: Pneumonia type: aspiration pneumonia Aspiration pneumonia type: unspecified Laterality: right Lung location: upper lobe of lung Qualified Code(s): J69.0 - Pneumonitis due to inhalation of food and vomit (3) COPD (chronic obstructive pulmonary disease) Current Visit: Yes Status: Chronic Assessment and plan: Patient with COPD exacerbation secondary to the above with continued wheezing rhonchi and rales on exam Will continue IV Solu-Medrol Qualifiers: COPD type: unspecified COPD Qualified Code(s): J44.9 - Chronic obstructive pulmonary disease, unspecified (4) Chronic respiratory failure with hypoxia Current Visit: Yes Status: Chronic Assessment and plan: Continue O2 supplementation. (5) CHF (congestive heart failure) Current Visit: Yes Status: Chronic Assessment and plan: Volume management with hemodialysis. Patient does not appear to be fluid overloaded but he does have large right- sided pleural effusion. Qualifiers: Heart failure type: diastolic Heart failure chronicity: chronic Qualified Code(s): I50.32 - Chronic diastolic (congestive) heart failure (6) ESRD (end stage renal disease) on dialysis Current Visit: Yes Status: Chronic Assessment and plan: Continue dialysis per nephrology recommendations. 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 (8) Anemia in chronic kidney disease, on chronic dialysis Current Visit: Yes Status: Chronic Assessment and plan: Hemoglobin stable Continue Epogen with dialysis per nephrology recommendations (9) Atrial fibrillation Current Visit: Yes Status: Chronic Assessment and plan: Rate controlled. On anticoagulation with Coumadin but Coumadin currently held for thoracentesis. Qualifiers: Atrial fibrillation type: chronic Qualified Code(s): I48.2 - Chronic atrial fibrillation (10) Malnutrition Current Visit: Yes Status: Chronic Assessment and plan: Nutrition consulted. Continue supplemental nutrition with ensure Qualifiers: Malnutrition type: protein-calorie malnutrition Protein-calorie malnutrition severity: unspecified severity Qualified Code(s): E46 - Unspecified protein-calorie malnutrition (11) DVT prophylaxis Current Visit: Yes Status: Acute Assessment and plan: On Coumadin. Currently being held for planned procedure. - Time Spent With Patient Total time spent is greater than 50% in coordination of care (as documented) at patient's floor/unit and/or counseling patient: - Subjective Interval history: Patient with shortness of breath requiring supplemental oxygenation due to multilobular pneumonia in right large pleural effusion. Patient's INR now below 2.0 so we will consult IR for thoracentesis on 06/13/18 - Constitutional Vitals: Temp Pulse Resp BP Pulse Ox 98.1 F 106 18 125/81 96 06/12/18 16:50 06/12/18 16:50 06/12/18 16:50 06/12/18 16:50 06/12/18 16:50 General appearance: Present: cachectic, A&O X 3, pleasant, no acute distress, underweight, answers questions appropriately - Respiratory Respiratory exam: Present: CTAB. Absent: accessory muscle use, rales, rhonchi, wheezes - Cardiovascular Cardiovascular exam: Present: RRR, +S1, +S2. Absent: diastolic murmur, gallop, rubs, systolic murmur - GI/Abdominal GI/Abdominal exam: Present: soft. Absent: distended - Extremities Exam Extremities exam: Absent: pedal edema - Skin Skin exam: Present: pallor Internal Medicine: Result - Labs CBC & Chem 7: 06/12/18 05:23 06/12/18 05:23 Labs: Short CBC 06/12/18 Range/Units 05:23 WBC 9.7 (4.3-11.1) K/mcL Hgb 10.6 L (12.9-16.9) g/dL Hct 30.5 L (37.5-50.1) % Plt Count 127 L (140-400) K/mcL Neutrophils # 9.3 H (1.6-8.9) K/mcL BMP 06/12/18 05:23 Sodium 136 Potassium 4.6 Chloride 95 L Carbon Dioxide 28 BUN 68 H Creatinine 4.22 H Glucose 160 H Calcium 9.3 - ABG Interpretation ABG results: PT/INR, D-dimer PT 20.3 Seconds (9.4-12.1) H 06/12/18 05:23 Consult Discharge Plan - Plan Referrals: Adolfo Tobias DO [Primary Care Provider] -
[2018-06-12] MEDS: Mirtazapine 15 MG TABLET PO SCH (20:44)
[2018-06-13] MEDS: MethylPREDNISolone 40 MG/ML VIAL IVP SCH ×3 (00:13→16:35)
[2018-06-13] MEDS: MetroNIDAZOLE 500 MG/100 ML 500 MG/100 ML BAG IVPB SCH ×2 (00:13→10:13)
[2018-06-13] MEDS: Ipratropium/Albuterol Neb 3 ML IH SCH ×6 (00:20→19:57)
[2018-06-13] MEDS ORDERED: Furosemide 40 MG/4 ML VIAL IVP ONE (03:06)
[2018-06-13 06:55] LABS: INR 1.8; Prothrombin Time 19.8 Seconds (9.4-12.1)
[2018-06-13 07:00] LABS: Hematocrit 31.6 % (37.5-50.1); Hemoglobin 10.7 g/dL (12.9-16.9); Immature Granulocytes % 0.4 % (0-4); Lymphocytes # 0.1 K/mcL (0.6-4.6); Mean Corpuscular HGB Conc 33.9 g/dL (31.6-35.5); Mean Corpuscular Hemoglobin 29.4 pg (28.0-33.3); Mean Corpuscular Volume 86.8 fL (83.0-100.0); Monocytes # 0.4 K/mcL (0.0-1.3); Monocytes % 4.2 %; Neutrophils # 7.9 K/mcL (1.6-8.9); Nucleated Red Blood Cells 0.2 /100 WBC (0); Platelet Count 114 K/mcL (140-400); Red Blood Count 3.64 M/mcL (4.19-5.50); Red Cell Distribution Width 19.7 % (11.5-14.5); Segmented Neutrophils % 94.4 %
[2018-06-13 07:08] LABS: Calcium 9.4 mg/dL (8.6-10.3); Potassium 4.5 mEq/L (3.5-5.1)
[2018-06-13 07:46] LABS: Anisocytosis 1+ (Not Present); Platelet Estimate Normal (Normal)
[2018-06-13 07:47] LABS: Target Cells 1+ (Not Present)
--- NOTE | 2018-06-13 09:14 | Nephrology Progress Note ---
Date of Encounter: 06/13/18 Time of Encounter: 09:12 - Assessment and Plan (1) ESRD (end stage renal disease) on dialysis Current Visit: Yes Status: Chronic HD MWF, continue current regimen. Avoid nephrotoxins and renal dose all medications. (2) Hypoalbuminemia Current Visit: Yes Status: Acute Albumin is 3.4, continue to encourage protein in diet. (3) Physical deconditioning Current Visit: Yes Status: Chronic Recommend PT/OT. Subjective Principal diagnosis: ESRD Interval history: Pt seen and examined. Objective - Vital Signs Vital signs: Vital Signs Temp Pulse Resp BP Pulse Ox 06/13/18 08:03 98.3 F 105 17 113/64 93 06/13/18 07:31 18 91 06/13/18 03:22 16 97 06/13/18 03:09 97.9 F 112 24 115/71 93 06/13/18 00:25 18 96 06/12/18 23:36 97.8 F 98 17 101/62 95 06/12/18 20:50 97 06/12/18 20:14 97.7 F 98 18 107/52 97 06/12/18 20:08 14 97 06/12/18 16:50 98.1 F 106 18 125/81 96 06/12/18 15:50 18 118/60 92 06/12/18 13:30 97.2 F L 17 118/60 06/12/18 13:10 116/66 06/12/18 12:55 113/62 06/12/18 12:40 111/69 06/12/18 12:25 110/63 06/12/18 12:10 114/66 06/12/18 11:55 109/60 06/12/18 11:40 106/64 06/12/18 11:25 103/61 06/12/18 11:10 106/61 06/12/18 10:55 105/61 06/12/18 10:40 106/63 06/12/18 10:25 109/64 06/12/18 10:10 95/56 06/12/18 09:55 102/60 06/12/18 09:40 97.1 F L 18 92/53 Intake and Output 06/12/18 06/13/18 06/13/18 23:59 07:59 15:59 Intake Total 100 / 100 Balance 100 / 100 Intake: IV Fluids 100 / 100 Flagyl Premix 500 MG/100 ML 500 100 / 100 mg In 100 ml @ 100 mls/hr IVPB Q8HR [facility] Rx#:[id number] Other: Weight 64.8 kg - General Appearance General appearance: Present: chronically ill, frail EENT: Present: ATNC, hearing intact, vision intact Neck: Present: supple Cardiology: Present: no edema Gastrointestinal: Present: no tenderness, guarding Integumentary: Present: no rash, warm and dry Neurologic: Present: alert and oriented x3 Psychiatric: Present: mood/affect appropriate, cooperative - Lab 06/13/18 05:31 06/13/18 05:31 Most recent lab results Calcium 9.4 mg/dL (8.6-10.3) 06/13/18 05:31 Phosphorus 4.0 mg/dL (2.7-4.5) 06/08/18 09:45 Consult Discharge Plan - Plan Referrals: Adolfo Tobias DO [Primary Care Provider] -
--- NOTE | 2018-06-13 09:29 | Internal Med Progress Note ---
Date of Encounter: 06/12/18 Time of Encounter: 11:00 - Assessment and plan (1) Pleural effusion Current Visit: Yes Status: Acute Assessment and plan: CT of the chest also large right pleural effusion. INR now less than 2.0 so will consult IR to plan for thoracentesis today (2) PNA (pneumonia) Current Visit: Yes Status: Acute Assessment and plan: Patient with multi lobular consolidation on CT scan of the chest Swallow eval demonstrated aspiration with thin and nectar thick barium Will continue coverage for aspiration pneumonia with IV Levaquin, vancomycin and Flagyl Qualifiers: Pneumonia type: aspiration pneumonia Aspiration pneumonia type: unspecified Laterality: right Lung location: upper lobe of lung Qualified Code(s): J69.0 - Pneumonitis due to inhalation of food and vomit (3) COPD (chronic obstructive pulmonary disease) Current Visit: Yes Status: Chronic Qualifiers: COPD type: unspecified COPD Qualified Code(s): J44.9 - Chronic obstructive pulmonary disease, unspecified (4) Chronic respiratory failure with hypoxia Current Visit: Yes Status: Chronic (5) CHF (congestive heart failure) Current Visit: Yes Status: Chronic Qualifiers: Heart failure type: diastolic Heart failure chronicity: chronic Qualified Code(s): I50.32 - Chronic diastolic (congestive) heart failure (6) ESRD (end stage renal disease) on dialysis Current Visit: Yes Status: Chronic (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 Current Visit: Yes Status: Chronic (8) Anemia in chronic kidney disease, on chronic dialysis Current Visit: Yes Status: Chronic (9) Atrial fibrillation Current Visit: Yes Status: Chronic Qualifiers: Atrial fibrillation type: chronic Qualified Code(s): I48.2 - Chronic atrial fibrillation (10) Malnutrition Current Visit: Yes Status: Chronic Qualifiers: Malnutrition type: protein-calorie malnutrition Protein-calorie malnutrition severity: unspecified severity Qualified Code(s): E46 - Unspecified protein-calorie malnutrition (11) DVT prophylaxis Current Visit: Yes Status: Acute - Time Spent With Patient Total time spent is greater than 50% in coordination of care (as documented) at patient's floor/unit and/or counseling patient: - Subjective Interval history: Patient with shortness of breath requiring supplemental oxygenation due to multilobular pneumonia in right large pleural effusion. Patient's INR now below 2.0 so we will consult IR for thoracentesis today Will continue IV antibiotics for multilobular pneumonia - Constitutional Vitals: Temp Pulse Resp BP Pulse Ox 98.3 F 105 17 113/64 93 06/13/18 08:03 06/13/18 08:03 06/13/18 08:03 06/13/18 08:03 06/13/18 08:03 General appearance: Present: cachectic, A&O X 3, pleasant, no acute distress, underweight, answers questions appropriately Internal Medicine: Result - Labs CBC & Chem 7: 06/17/18 04:31 06/17/18 04:31 Labs: Short CBC 06/13/18 Range/Units 05:31 WBC 8.4 (4.3-11.1) K/mcL Hgb 10.7 L (12.9-16.9) g/dL Hct 31.6 L (37.5-50.1) % Plt Count 114 L (140-400) K/mcL Neutrophils # 7.9 (1.6-8.9) K/mcL BMP 06/13/18 05:31 Sodium 139 Potassium 4.5 Chloride 97 L Carbon Dioxide 29 BUN 43 H Creatinine 3.20 H Glucose 133 H Calcium 9.4 - ABG Interpretation ABG results: PT/INR, D-dimer PT 19.8 Seconds (9.4-12.1) H 06/13/18 05:31 Consult Discharge Plan - Plan Referrals: Chantel Serrano MD [Partnered Physician] - 06/19/18 1:00 pm (Please follow up as schedule...) Adolfo Tobias DO [Primary Care Provider] - (Patient is from [place]...)
--- NOTE | 2018-06-13 09:39 | Procedure Note ---
Date of procedure: 06/13/18 Pre-op diagnosis: right pleural effusion Post-op diagnosis: same Procedure: Procedure: Right Thoracentesis. Date: 06/13/18 Time: 09 Indication: Large right pleural effusion Resident: Marry Nicolas DO Attending: Venkatesh Salvador MD A timeout was completed verifying correct patient, procedure, site, positioning , and special equipment if applicable. The patient's right side was prepped and draped in a sterile manner after appropriate infiltration level was confirmed by ultrasound. 1% lidocaine was used to anesthetize the surrounding skin. A finder needle was then used to locate fluid and clear brown fluid was obtained. A 10-blade scalpel was used to make the incision. The thoracentesis catheter was then threaded without difficulty. The patient had 1500ml clear brown fluid removed. Attending physician Dr. Salvador supervised the procedure. A post procedure Xray confirmed that there was no pneumothorax. The fluid was sent for studies. Estimated blood loss: 3ml The patient tolerated the procedure well and there were no complications. Anesthesia: local Surgeon: Marry Nicolas Was there an staff assistant present: Yes Pipe Foreman: Rizwana Anderson Estimated blood loss (cc): 3 Specimen: right pleural fluid Pathology: other (right pleural fluid) Condition: stable Disposition: floor
[2018-06-13] MEDS: Renal Vitamin 1 CAP CAPSULE PO SCH (10:12)
[2018-06-13] MEDS: Finasteride 5 MG TABLET PO SCH (10:12)
[2018-06-13] MEDS: Lactobacillus 1 EACH CAP.SPRINK PO SCH ×2 (10:13→22:39)
[2018-06-13] MEDS: *HR* Amiodarone 200 MG TABLET PO SCH (10:13)
[2018-06-13] MEDS: Loratadine 10 MG TABLET PO SCH (10:13)
[2018-06-13 10:48] LABS: RBC,Pleural Fluid < 0.002 M/mcL
[2018-06-13 10:49] LABS: Appearance of Pleural Fl Hazy (Clear)
[2018-06-13 11:21] LABS: Glucose,Pleural Fluid 144 mg/dL (No Ref Range); LDH,Pleural Fluid 34 Units/L (No Ref Range); Total Protein,Pleural Fluid < 3.0 g/dL (No Ref Range)
[2018-06-13] MEDS: Acetylcysteine 10% 2 ML INHSOL IH SCH ×2 (15:51→19:57)
[2018-06-13] MEDS: metroNIDAZOLE 500 MG TABLET PO SCH ×2 (16:35→22:39)
[2018-06-13] MEDS ORDERED: *HR* Warfarin 2 MG TABLET PO ONE (18:00)
[2018-06-13] MEDS: Mirtazapine 15 MG TABLET PO SCH (22:40)
[2018-06-14 05:56] LABS: INR 1.8; Prothrombin Time 20.6 Seconds (9.4-12.1)
[2018-06-14 08:56] LABS: Calcium 9.1 mg/dL (8.6-10.3); Potassium 4.3 mEq/L (3.5-5.1)
[2018-06-14 08:57] LABS: Hemoglobin 10.7 g/dL (12.9-16.9); Immature Granulocytes % 0.9 % (0-4); Immature Platelets 13.1 % (1.1-6.1); Lymphocytes # 0.1 K/mcL (0.6-4.6); Lymphocytes % 0.5 %; Mean Corpuscular HGB Conc 34.5 g/dL (31.6-35.5); Mean Corpuscular Hemoglobin 29.6 pg (28.0-33.3); Mean Corpuscular Volume 85.6 fL (83.0-100.0); Mean Platelet Volume 13.6 fL (9.4-12.4); Monocytes # 0.7 K/mcL (0.0-1.3); Monocytes % 5.6 %; Neutrophils # 10.9 K/mcL (1.6-8.9); Nucleated Red Blood Cells 0.3 /100 WBC (0); Platelet Count 111 K/mcL (140-400); Red Blood Count 3.62 M/mcL (4.19-5.50); Red Cell Distribution Width 19.7 % (11.5-14.5)
[2018-06-14] MEDS ORDERED: levoFLOXacin 500 MG TABLET PO SCH (09:00)
[2018-06-14] MEDS ORDERED: 0.9 % Sodium Chloride 250 ML IVC PRN (11:24)
[2018-06-14] MEDS ORDERED: 0.9 % Sodium Chloride 1,000 ML PRIME SCH (11:30)
--- NOTE | 2018-06-14 11:31 | Nephrology Progress Note ---
Date of Encounter: 06/14/18 Time of Encounter: 11:28 - Assessment and Plan (1) ESRD (end stage renal disease) on dialysis Current Visit: Yes Status: Chronic HD MWF, continue current regimen. Avoid nephrotoxins and renal dose all medications. Will order additional HD or UF as needed. (2) Hypoalbuminemia Current Visit: Yes Status: Acute Albumin is 3.4, continue to encourage protein in diet. Speech therapy is seeing patient. (3) Physical deconditioning Current Visit: Yes Status: Chronic Recommend PT/OT. Subjective Principal diagnosis: ESRD Interval history: Pt seen and examined. Pt appears very frail. Objective - Vital Signs Vital signs: Vital Signs Temp Pulse Resp BP Pulse Ox 06/13/18 23:47 97.7 F 104 16 103/62 95 06/13/18 19:58 17 93 06/13/18 18:52 97.9 F 101 20 110/65 95 06/13/18 16:35 97.4 F L 98 16 110/71 94 06/13/18 15:51 20 93 06/13/18 11:47 97.8 F 101 17 118/69 95 Intake and Output 06/13/18 06/14/18 06/14/18 23:59 07:59 15:59 Intake Total 0 / 0 Output Total 0 / 0 Balance 0 / 0 Intake: Oral 0 / 0 Output: Urine 0 / 0 Other: Meal Dinner Percent of Meal Consumed 25% Weight 68 kg - General Appearance General appearance: Present: chronically ill, frail EENT: Present: ATNC, hearing intact, vision intact Neck: Present: supple Respiratory: Present: clear Cardiology: Present: no edema, normal S1, normal S2 Dialysis Vascular Access: Arteriovenous Fistula thrill: Yes bruit: Yes Gastrointestinal: Present: normoactive bowel sounds, no tenderness, no guarding Integumentary: Present: no rash, warm and dry Neurologic: Present: alert and oriented x3 Psychiatric: Present: mood/affect appropriate, cooperative - Lab 06/13/18 05:31 06/14/18 04:41 Most recent lab results Calcium 9.1 mg/dL (8.6-10.3) 06/14/18 04:41 Phosphorus 4.0 mg/dL (2.7-4.5) 06/08/18 09:45 Consult Discharge Plan - Plan Referrals: Chantel Serrano MD [Partnered Physician] - 06/19/18 1:00 pm (Please follow up as schedule...) Adolfo Tobias DO [Primary Care Provider] - (Patient is from [place]...)
[2018-06-14 11:43] LABS: Large Platelets Present (Not Present); Platelet Estimate Slight Decrease (Normal)
[2018-06-14] MEDS: MethylPREDNISolone 40 MG/ML VIAL IVP SCH ×3 (12:12→16:11)
[2018-06-14] MEDS: Loratadine 10 MG TABLET PO SCH (12:12)
[2018-06-14] MEDS: *HR* Amiodarone 200 MG TABLET PO SCH (12:13)
[2018-06-14] MEDS: Renal Vitamin 1 CAP CAPSULE PO SCH (12:13)
[2018-06-14] MEDS: Finasteride 5 MG TABLET PO SCH (12:13)
[2018-06-14] MEDS: metroNIDAZOLE 500 MG TABLET PO SCH ×3 (12:13→21:51)
[2018-06-14] MEDS: Lactobacillus 1 EACH CAP.SPRINK PO SCH ×2 (12:13→21:51)
[2018-06-14] MEDS: Ipratropium/Albuterol Neb 3 ML IH SCH ×5 (12:30→23:29)
[2018-06-14] MEDS: Acetylcysteine 10% 2 ML INHSOL IH SCH ×6 (12:31→23:29)
[2018-06-14] MEDS: OXYCODONE Oral CONC 10 MG/0.5 ML ORAL.SYG SL PRN (12:34)
--- NOTE | 2018-06-14 14:59 | Pulmonology Consult Note ---
Date of Encounter: 06/14/18 Time of Encounter: 14:45 Assessment and Plan (1) Acute on chronic respiratory failure with hypoxia Current Visit: No Status: Acute Patient presents with recurrent acute on chronic respiratory failure mostly due to fluid overload presents with recurrent pleural effusion. Multiple thoracentesis might be a candidate for Pleurx catheter in the future. (2) Diastolic CHF, acute on chronic Current Visit: No Status: Acute Patient has acute on chronic diastolic heart failure we will continue her dialysis and blood pressure control (3) Pneumonia Current Visit: Yes Status: Acute Bilateral pneumonia patient was on Levaquin and vancomycin will add some pseudomonal coverage will add separate time because of penicillin allergy. Spoke with the nursing staff to ask respiratory therapist to use every 6 hours per therapy date the bronchopulmonary hygiene as he is lot of secretion he needs into be to cough more and to use incentive spirometery. Very poor prognosis will need palliative care involvement and to address his goals of care. Qualifiers: Pneumonia type: aspiration pneumonia Laterality: bilateral Lung location : unspecified part of lung Qualified Code(s): J69.0 - Pneumonitis due to inhalation of food and vomit (4) ESRD (end stage renal disease) on dialysis Current Visit: Yes Status: Chronic To continue MWF dialysis History of Present Illness Consult date: 06/14/18 Requesting physician: John Clarke Reason for consult: abnormal CXR/CT, other (hypoxic respiratory failure ) Chief complaint: Cough with Sputum production History of present illness: 77-year-old male well-known to us service with past medical history of hypertension hyperlipidemia, atrial fibrillation, CHF, end-stage renal disease on Sunday dialysis complicated by recurrent pleural effusion comes on and off with acute on chronic respiratory failure this time he came with symptoms of pneumonia with cough and sputum production with some constitutional symptoms patient was treated for pneumonia had his chronic right- sided pleural effusion which was tapped by interventional radiology which showed more of a transudative nature. Patient denies any chest pain, chest tightness but has lot of cough with sputum production patient denies any chest pain, chest tightness, denies any fever or chills denies any other constitutional symptoms. Denies any abdominal symptoms denies any neuro symptoms pulmonary was consulted with regard to improving on chronic respiratory failure Past Med Surg Social Fam HX - Past Medical History Medical history: arthritis, atrial fibrillation, CHF, dialysis, GERD, hyperlipidemia, osteoporosis, renal disease, valvular heart disease, other Additional medical history: hemodialysis m,w,f. Left upper extremity fistula + thrill/ + bruit Psychiatric history: no psych history - Past Surgical History Surgical History: appendectomy Additional surgical history: Dialysis shunt and catheter - Social History Smoking Status: Never smoker Smokeless Tobacco Status: No Alcohol use: none Drug use: none - Family History Mother Family Member Ethnicity: Non- Living Status: Hx Family Neurologic Disorders: Yes (Dementia) Father Living Status: Hx Family Cardiac Disorders: Yes (mi) Medications and Allergies Finasteride [Proscar] 5 mg PO DAILY 07/26/16 [History] Polyvinyl Alcohol/Povidone/Pf [Refresh Classic Eye Drops] 1 drop BOTH EYES BID 08/18/16 [History] Fluticasone Propionate Nasal [Flonase] 1 spr NS DAILY PRN 05/03/17 [History] Montelukast [Singulair] 10 mg PO DAILY 10/29/17 [History] Oxygen 3 l NS AD 10/29/17 [History] Lactobacillus Acidophilus [Acidophilus] 100 mg PO BID 01/17/18 [History] Amiodarone [Cordarone] 200 mg PO DAILY 02/03/18 [History] Furosemide [Lasix] 40 mg PO DAILY 02/03/18 [History] Lidocaine/Prilocaine CREAM [Emla] 1 appl TP MOWEFR 02/03/18 [History] Loratadine [Allergy Relief] 10 mg PO DAILY 02/03/18 [History] Albuterol Neb [Proventil Neb] 2.5 mg IH Q4H PRN 02/26/18 [History] Pantoprazole Sodium [Protonix] 40 mg PO DAILY 02/26/18 [History] Vit C/Vit E AC/Lut/Copper/Zinc [Preservision Lutein Softgel] 1 cap PO BID [History] Ondansetron HCl [Zofran] 4 mg PO Q4H PRN 04/16/18 [History] OxyCODONE/APAP 5/325 [Percocet 5/325 MG] 1 each PO Q6H PRN 4 Days #16 tablet [Rx] Dicyclomine [Bentyl] 10 mg PO DAILY 04/25/18 [History] Dronabinol [Marinol] 5 mg PO DAILY 06/08/18 [History] GuaiFENesin ER [Mucinex] 600 mg PO BID 06/08/18 [History] Levofloxacin [Levaquin] 750 mg PO ONCE 06/08/18 [History] Mirtazapine [Remeron] 30 mg PO HS 06/08/18 [History] OLANZapine [Zyprexa] 2.5 mg PO HS 06/08/18 [History] Phenyleph/Pramoxin/Glycr/W.pet [Preparation H Cream] 26 gm RC BID 06/08/18 [ History] Polyethylene Glycol 3350 [MiraLAX] 8.5 gm PO DAILY PRN 06/08/18 [History] Primidone [Mysoline] 50 mg PO HS 06/08/18 [History] Renal Vitamin [Renal Caps Softgel] 1 mg PO DAILY 06/08/18 [History] Sevelamer Carbonate [Renvela] 2.4 gm PO AD 06/08/18 [History] Warfarin [Coumadin] 1 mg PO SA 06/08/18 [History] Warfarin [Coumadin] 2 mg PO SUMOTUWETHFR 06/08/18 [History] levoFLOXacin [Levaquin] 500 mg PO Q48H 06/08/18 [History] 3 Allergy/AdvReac Type Severity Reaction Status Date / Time Amoxicillin Allergy Swelling Verified 05/28/18 15:29 of Lip/Tongue/Throat Penicillins [PCN] Allergy Anaphylaxis Verified 05/28/18 15:29 venom-honey bee Allergy Anaphylaxis Verified 05/28/18 15:29 [bee venom (honey bee)] All Systems: The remainder of the systems were reviewed and are negative Physical Examination Vital Signs: Vital Signs, Last 4 Hours Temp Resp BP 06/14/18 13:15 97.9 F 18 114/76 06/14/18 13:00 105/61 06/14/18 12:45 109/53 06/14/18 12:30 105/52 06/14/18 12:15 115/62 06/14/18 12:00 107/59 06/14/18 11:45 113/60 06/14/18 11:30 108/61 06/14/18 11:15 105/63 06/14/18 11:00 111/60 Effort: mildly labored Auscultation: bilateral: diminished breath sounds (Basilar diminished breath sounds), rales (Bilateral scattered rales) Gastrointestinal: soft, non-distended Extremities: no edema Results - Laboratory Findings CBC and BMP: 06/14/18 04:14 06/14/18 04:41 PT/INR, D-dimer PT 20.6 Seconds (9.4-12.1) H 06/14/18 04:41 Abnormal lab findings: Abnormal lab results WBC 11.7 K/mcL (4.3-11.1) H 06/14/18 04:14 RBC 3.62 M/mcL (4.19-5.50) L 06/14/18 04:14 Hgb 10.7 g/dL (12.9-16.9) L 06/14/18 04:14 Hct 31.0 % (37.5-50.1) L 06/14/18 04:14 RDW 19.7 % (11.5-14.5) H 06/14/18 04:14 Plt Count 111 K/mcL (140-400) L 06/14/18 04:14 MPV 13.6 fL (9.4-12.4) H 06/14/18 04:14 Neutrophils # 10.9 K/mcL (1.6-8.9) H 06/14/18 04:14 Lymphocytes # 0.1 K/mcL (0.6-4.6) L 06/14/18 04:14 Nucleated RBCs/100 WBC 0.3 /100 WBC (0) H 06/14/18 04:14 Reactive Lymphocytes Present (Not Present) A 06/12/18 05:23 Toxic Granulation Present (Not Present) A 06/12/18 05:23 Platelet Estimate Slight Decrease (Normal) L 06/14/18 04:14 Large Platelets Present (Not Present) A 06/14/18 04:14 Immature Plt Fraction 13.1 % (1.1-6.1) H 06/14/18 04:14 Hypochromasia Present (Not Present) A 06/11/18 04:56 Poikilocytosis 1+ (Not Present) A 06/11/18 04:56 Anisocytosis 1+ (Not Present) A 06/13/18 05:31 Microcytosis Present (Not Present) A 06/11/18 04:56 Spherocytes 1+ (Not Present) A 06/09/18 14:07 Target Cells 1+ (Not Present) A 06/13/18 05:31 Ovalocytes 1+ (Not Present) A 06/11/18 04:56 Eliu Cells 1+ (Not Present) A 06/10/18 04:55 PT 20.6 Seconds (9.4-12.1) H 06/14/18 04:41 Chloride 96 mEq/L (98-107) L 06/14/18 04:41 BUN 61 mg/dL (8-23) H 06/14/18 04:41 Creatinine 3.84 mg/dL (0.70-1.30) H 06/14/18 04:41 Est GFR ( Amer) 19 (> 60) L 06/14/18 04:41 Est GFR (Non-Af Amer) 15 (> 60) L 06/14/18 04:41 Glucose 174 mg/dL (70-105) H 06/14/18 04:41 POC Glucose 162 mg/dL (70-99) H 06/10/18 21:53 Calculated Osmolality 303 (280-300) H 06/14/18 04:41 Pleural Appearance Hazy (Clear) A 06/13/18 09:20 - Microbiology Findings Microbiology Findings: Microbiology, Last 48 Hours 06/08/18 09:46 Blood Culture - Final Peripheral Venipuncture No growth. Final report. - Clinical Findings Intake & Output: Intake & Output 06/13/18 06/14/18 06/14/18 23:59 07:59 15:59 Intake Total 0 / 0 600 / 600 Output Total 0 / 0 600 / 600 Balance 0 / 0 0 / 0 Weight 68 kg Consult Discharge Plan - Plan Referrals: Chantel Serrano MD [Partnered Physician] - 06/19/18 1:00 pm (Please follow up as schedule...) Twin-Adolfo Panda DO [Primary Care Provider] - (Patient is from [place]...)
[2018-06-14] MEDS: Cefepime HCl 1,000 MG in Water for inj. (sterile) 20 ML 10 ML IVP SCH (16:11)
[2018-06-14] MEDS ORDERED: *HR* Warfarin 2 MG TABLET PO ONE (18:00)
[2018-06-14] MEDS ORDERED: Vancomycin 500 MG in 0.9 % Sodium Chloride Mini Bag 100 ML IVPB ONE (18:00)
--- NOTE | 2018-06-14 19:31 | Internal Med Progress Note ---
Date of Encounter: 06/15/18 Time of Encounter: 11:00 - Assessment and plan (1) Pleural effusion Current Visit: Yes Status: Acute Assessment and plan: CT of the chest also showed large right pleural effusion status post thoracentesis on 06/12/18 with 1500 mL of clear fluid that was removed. Pulmonology consulted and appreciate any further recommendations. (2) PNA (pneumonia) Current Visit: Yes Status: Acute Assessment and plan: Patient with multi lobular consolidation on CT scan of the chest Swallow eval demonstrated aspiration with thin and nectar thick barium Patient still without much improvement in symptoms with rhonchi and rales on lung exam in addition to gurgling. Will continue coverage for aspiration pneumonia with IV Levaquin, vancomycin and Flagyl Will consult pulmonology and appreciate any further recommendations. Qualifiers: Pneumonia type: aspiration pneumonia Aspiration pneumonia type: unspecified Laterality: right Lung location: upper lobe of lung Qualified Code(s): J69.0 - Pneumonitis due to inhalation of food and vomit (3) COPD (chronic obstructive pulmonary disease) Current Visit: Yes Status: Chronic Assessment and plan: Patient with COPD exacerbation secondary to the above with continued wheezing rhonchi and rales on exam Will continue IV Solu-Medrol Qualifiers: COPD type: unspecified COPD Qualified Code(s): J44.9 - Chronic obstructive pulmonary disease, unspecified (4) Chronic respiratory failure with hypoxia Current Visit: Yes Status: Chronic Assessment and plan: Continue O2 supplementation. (5) CHF (congestive heart failure) Current Visit: Yes Status: Chronic Assessment and plan: Volume management with hemodialysis. Patient does not appear to be fluid overloaded but he does have large right- sided pleural effusion. Qualifiers: Heart failure type: diastolic Heart failure chronicity: chronic Qualified Code(s): I50.32 - Chronic diastolic (congestive) heart failure (6) ESRD (end stage renal disease) on dialysis Current Visit: Yes Status: Chronic Assessment and plan: Continue dialysis per nephrology recommendations. 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 (8) Anemia in chronic kidney disease, on chronic dialysis Current Visit: Yes Status: Chronic Assessment and plan: Hemoglobin stable Continue Epogen with dialysis per nephrology recommendations (9) Atrial fibrillation Current Visit: Yes Status: Chronic Assessment and plan: Rate controlled. On anticoagulation with Coumadin but Coumadin currently held for thoracentesis. Qualifiers: Atrial fibrillation type: chronic Qualified Code(s): I48.2 - Chronic atrial fibrillation (10) Malnutrition Current Visit: Yes Status: Chronic Assessment and plan: Nutrition consulted. Continue supplemental nutrition with ensure Qualifiers: Malnutrition type: protein-calorie malnutrition Protein-calorie malnutrition severity: unspecified severity Qualified Code(s): E46 - Unspecified protein-calorie malnutrition (11) DVT prophylaxis Current Visit: Yes Status: Acute Assessment and plan: On Coumadin. Currently being held for planned procedure. - Time Spent With Patient Total time spent is greater than 50% in coordination of care (as documented) at patient's floor/unit and/or counseling patient: - Subjective Interval history: Patient with shortness of breath requiring supplemental oxygenation due to multilobular pneumonia in right large pleural effusion. IR consulted status post thoracentesis on 06/13/18 and 1500 mL of clear brown fluid was removed. Pulmonology consulted for any further recommendations for multilobular pneumonia - Constitutional Vitals: Temp Pulse Resp BP Pulse Ox 97.9 F 103 20 104/61 95 06/14/18 15:28 06/14/18 15:28 06/14/18 15:42 06/14/18 15:28 06/14/18 15:42 General appearance: Present: cachectic, A&O X 3, pleasant, no acute distress, underweight, answers questions appropriately - Respiratory Respiratory exam: Present: CTAB, rales, respiratory distress, rhonchi. Absent: accessory muscle use, wheezes - Cardiovascular Cardiovascular exam: Present: RRR, +S1, +S2. Absent: diastolic murmur, gallop, rubs, systolic murmur - GI/Abdominal GI/Abdominal exam: Present: soft. Absent: distended - Extremities Exam Extremities exam: Absent: pedal edema - Skin Skin exam: Present: normal color Internal Medicine: Result - Labs CBC & Chem 7: 06/15/18 06:44 06/15/18 06:44 Labs: Short CBC 06/14/18 Range/Units 04:14 WBC 11.7 H (4.3-11.1) K/mcL Hgb 10.7 L (12.9-16.9) g/dL Hct 31.0 L (37.5-50.1) % Plt Count 111 L (140-400) K/mcL Neutrophils # 10.9 H (1.6-8.9) K/mcL BMP 06/14/18 04:41 Sodium 136 Potassium 4.3 Chloride 96 L Carbon Dioxide 27 BUN 61 H Creatinine 3.84 H Glucose 174 H Calcium 9.1 - ABG Interpretation ABG results: PT/INR, D-dimer PT 20.6 Seconds (9.4-12.1) H 06/14/18 04:41 Consult Discharge Plan - Plan Referrals: Chantel Serrano MD [Partnered Physician] - 06/19/18 1:00 pm (Please follow up as schedule...) Adolfo Tobias DO [Primary Care Provider] - (Patient is from [place]...)
[2018-06-14] MEDS: Mirtazapine 15 MG TABLET PO SCH (21:51)
[2018-06-15] MEDS: MethylPREDNISolone 40 MG/ML VIAL IVP SCH ×3 (02:22→16:52)
[2018-06-15] MEDS: Scopolamine Patch 1.5 MG PATCH.TD72 TD SCH (02:27)
[2018-06-15] MEDS: Acetylcysteine 10% 2 ML INHSOL IH SCH ×6 (05:20→23:45)
[2018-06-15] MEDS: Ipratropium/Albuterol Neb 3 ML IH SCH ×6 (05:21→23:45)
[2018-06-15 07:34] LABS: INR 1.9; Prothrombin Time 21.8 Seconds (9.4-12.1)
--- NOTE | 2018-06-15 07:42 | Event Note ---
Date of Encounter: 06/15/18 Time of Encounter: 07:41 Nephrology Chart Review Completed dialysis yesterda. Next tentative HD will be for Sunday. I'll be available this weekened if needed. Thank you.
--- NOTE | 2018-06-15 10:07 | Pulmonology Progress Note ---
Date of Encounter: 06/15/18 Time of Encounter: 09:45 Assessment and Plan (1) Acute on chronic respiratory failure with hypoxia Current Visit: No Status: Acute Multi factorial due to pneumonia, acute on chronic diastolic heart failure, end- stage renal disease requiring Sunday dialysis. Increase bronchopulmonary hygiene patient has to be mobilized fat and increased coughing at least 4 times daily aggressive bronchopulmonary hygiene will flutter valve and incentive spirometry respiratory therapist has to be involved in his care otherwise he will not get better as expected. Spoke With the nursing staff to be communicated with the floor respiratory therapist. (2) Diastolic CHF, acute on chronic Current Visit: No Status: Acute Patient will need dialysis supported by recent thoracentesis for this recurrent pleural effusion patient might benefit from pleurex catheter . (3) Pneumonia Current Visit: Yes Status: Acute To continue the broad spectrum antibiotics. If brings up sputum send for culture and sensitivity Qualifiers: Pneumonia type: aspiration pneumonia Laterality: bilateral Lung location : unspecified part of lung Qualified Code(s): J69.0 - Pneumonitis due to inhalation of food and vomit (4) ESRD (end stage renal disease) on dialysis Current Visit: Yes Status: Chronic To continue MWF dialysis . Subjective Principal diagnosis: ESRD Interval history: Patient started to using flutter valve therapy , patient says he is feeling slightly better will need aggressive bronchopulmonary hygiene , denies any chest pain or tightness. Here for follow up. Objective PUL Vital signs: Last Vital Signs Temp 97.5 F L 06/15/18 09:00 Pulse 105 06/15/18 09:00 Resp 20 06/15/18 09:00 BP 118/70 06/15/18 09:00 Pulse Ox 95 06/15/18 09:00 Auscultation: bilateral: diminished breath sounds (basilar diminished breadth sounds ), rales (scattered rales ) Gait: other Results - Laboratory Findings CBC and BMP: 06/15/18 06:44 06/15/18 06:44 PT/INR, D-dimer PT 21.8 Seconds (9.4-12.1) H 06/15/18 06:44 Abnormal lab findings: Abnormal lab results WBC 11.7 K/mcL (4.3-11.1) H 06/14/18 04:14 RBC 3.62 M/mcL (4.19-5.50) L 06/14/18 04:14 Hgb 10.7 g/dL (12.9-16.9) L 06/14/18 04:14 Hct 31.0 % (37.5-50.1) L 06/14/18 04:14 RDW 19.7 % (11.5-14.5) H 06/14/18 04:14 Plt Count 111 K/mcL (140-400) L 06/14/18 04:14 MPV 13.6 fL (9.4-12.4) H 06/14/18 04:14 Neutrophils # 10.9 K/mcL (1.6-8.9) H 06/14/18 04:14 Lymphocytes # 0.1 K/mcL (0.6-4.6) L 06/14/18 04:14 Nucleated RBCs/100 WBC 0.3 /100 WBC (0) H 06/14/18 04:14 Reactive Lymphocytes Present (Not Present) A 06/12/18 05:23 Toxic Granulation Present (Not Present) A 06/12/18 05:23 Platelet Estimate Slight Decrease (Normal) L 06/14/18 04:14 Large Platelets Present (Not Present) A 06/14/18 04:14 Immature Plt Fraction 13.1 % (1.1-6.1) H 06/14/18 04:14 Hypochromasia Present (Not Present) A 06/11/18 04:56 Poikilocytosis 1+ (Not Present) A 06/11/18 04:56 Anisocytosis 1+ (Not Present) A 06/13/18 05:31 Microcytosis Present (Not Present) A 06/11/18 04:56 Spherocytes 1+ (Not Present) A 06/09/18 14:07 Target Cells 1+ (Not Present) A 06/13/18 05:31 Ovalocytes 1+ (Not Present) A 06/11/18 04:56 [place] Cells 1+ (Not Present) A 06/10/18 04:55 PT 21.8 Seconds (9.4-12.1) H 06/15/18 06:44 Chloride 96 mEq/L (98-107) L 06/14/18 04:41 BUN 61 mg/dL (8-23) H 06/14/18 04:41 Creatinine 3.84 mg/dL (0.70-1.30) H 06/14/18 04:41 Est GFR ( Amer) 19 (> 60) L 06/14/18 04:41 Est GFR (Non-Af Amer) 15 (> 60) L 06/14/18 04:41 Glucose 174 mg/dL (70-105) H 06/14/18 04:41 POC Glucose 162 mg/dL (70-99) H 06/10/18 21:53 Calculated Osmolality 303 (280-300) H 06/14/18 04:41 Pleural Appearance Hazy (Clear) A 06/13/18 09:20 - Microbiology Findings Microbiology Findings: Microbiology, Last 48 Hours 06/08/18 09:46 Blood Culture - Final Peripheral Venipuncture No growth. Final report. - Clinical Findings Intake & Output: Intake & Output 06/14/18 06/15/18 06/15/18 23:59 07:59 15:59 Intake Total 200 / 200 460 / 460 Output Total 0 / 0 Balance 200 / 200 460 / 460 Weight 68.4 kg Consult Discharge Plan - Plan Referrals: Chantel Serrano MD [Partnered Physician] - 06/19/18 1:00 pm (Please follow up as schedule...) Adolfo Tobias DO [Primary Care Provider] - (Patient is from [place]...)
[2018-06-15] MEDS: Finasteride 5 MG TABLET PO SCH (10:21)
[2018-06-15] MEDS: metroNIDAZOLE 500 MG TABLET PO SCH ×3 (10:22→20:23)
[2018-06-15] MEDS: *HR* Amiodarone 200 MG TABLET PO SCH (10:22)
[2018-06-15] MEDS: Renal Vitamin 1 CAP CAPSULE PO SCH (10:23)
[2018-06-15] MEDS: Lactobacillus 1 EACH CAP.SPRINK PO SCH ×2 (10:23→20:23)
[2018-06-15] MEDS: Loratadine 10 MG TABLET PO SCH (10:44)
[2018-06-15 10:50] LABS: Nucleated Red Blood Cells 0.1 /100 WBC (0)
[2018-06-15 10:52] LABS: Hematocrit 32.6 % (37.5-50.1); Hemoglobin 11.4 g/dL (12.9-16.9); Immature Platelets 15.2 % (1.1-6.1); Mean Corpuscular Hemoglobin 30.6 pg (28.0-33.3); Mean Corpuscular Volume 87.6 fL (83.0-100.0); Mean Platelet Volume 13.3 fL (9.4-12.4); Red Blood Count 3.72 M/mcL (4.19-5.50); Red Cell Distribution Width 20.1 % (11.5-14.5)
[2018-06-15 11:02] LABS: Calcium 9.2 mg/dL (8.6-10.3); Potassium 4.5 mEq/L (3.5-5.1)
[2018-06-15 11:26] LABS: Platelet Count 96 K/mcL (140-400)
[2018-06-15 11:32] LABS: Anisocytosis 1+ (Not Present); Lymphocytes # 0.6 K/mcL (0.6-4.6); Monocytes # 0.9 K/mcL (0.0-1.3); Neutrophils # 13.1 K/mcL (1.6-8.9); Platelet Estimate Decreased (Normal); Poikilocytosis 1+ (Not Present); Target Cells 1+ (Not Present)
[2018-06-15 11:33] LABS: Hypochromasia Present (Not Present); Macrocytosis Present (Not Present); Ovalocytes 1+ (Not Present); Toxic Granulation Present (Not Present)
[2018-06-15] MEDS ORDERED: Aminoglycoside Consult 1 EACH MC ONE (13:50)
[2018-06-15] MEDS: Cefepime HCl 1,000 MG in Water for inj. (sterile) 20 ML 10 ML IVP SCH (16:48)
--- NOTE | 2018-06-15 17:20 | Internal Med Progress Note ---
Date of Encounter: 06/15/18 Time of Encounter: 11:00 - Assessment and plan (1) PNA (pneumonia) Current Visit: Yes Status: Acute Assessment and plan: Patient with multi lobular consolidation on CT scan of the chest Swallow eval demonstrated aspiration with thin and nectar thick barium Patient still without much improvement in symptoms with rhonchi and rales on lung exam in addition to gurgling. Pulmonology consulted with recommendations to start patient on cefepime and to intensify respiratory therapy for every 6 hours for the bronchial pulmonary hygiene Pulmonology with further recommendations for palliative care consult due to very poor prognosis to dress goals of care. Qualifiers: Pneumonia type: aspiration pneumonia Aspiration pneumonia type: unspecified Laterality: right Lung location: upper lobe of lung Qualified Code(s): J69.0 - Pneumonitis due to inhalation of food and vomit (2) Pleural effusion Current Visit: Yes Status: Acute Assessment and plan: CT of the chest also showed large right pleural effusion status post thoracentesis on 06/12/18 with 1500 mL of clear fluid that was removed. Pulmonology consulted and appreciate any further recommendations. (3) Chronic respiratory failure with hypoxia Current Visit: Yes Status: Chronic Assessment and plan: Continue O2 supplementation. (4) COPD (chronic obstructive pulmonary disease) Current Visit: Yes Status: Chronic Assessment and plan: Patient with COPD exacerbation secondary to the above with continued wheezing rhonchi and rales on exam Will continue IV Solu-Medrol Qualifiers: COPD type: unspecified COPD Qualified Code(s): J44.9 - Chronic obstructive pulmonary disease, unspecified (5) CHF (congestive heart failure) Current Visit: Yes Status: Chronic Assessment and plan: Volume management with hemodialysis. Patient does not appear to be fluid overloaded but he does have large right- sided pleural effusion. Qualifiers: Heart failure type: diastolic Heart failure chronicity: chronic Qualified Code(s): I50.32 - Chronic diastolic (congestive) heart failure (6) ESRD (end stage renal disease) on dialysis Current Visit: Yes Status: Chronic Assessment and plan: Continue dialysis per nephrology recommendations. 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 (8) Anemia in chronic kidney disease, on chronic dialysis Current Visit: Yes Status: Chronic Assessment and plan: Hemoglobin stable Continue Epogen with dialysis per nephrology recommendations (9) Atrial fibrillation Current Visit: Yes Status: Chronic Assessment and plan: Rate controlled. On anticoagulation with Coumadin but Coumadin currently held for thoracentesis. Qualifiers: Atrial fibrillation type: chronic Qualified Code(s): I48.2 - Chronic atrial fibrillation (10) Malnutrition Current Visit: Yes Status: Chronic Assessment and plan: Nutrition consulted. Continue supplemental nutrition with ensure Qualifiers: Malnutrition type: protein-calorie malnutrition Protein-calorie malnutrition severity: unspecified severity Qualified Code(s): E46 - Unspecified protein-calorie malnutrition (11) Goals of care, counseling/discussion Current Visit: Yes Status: Acute Assessment and plan: Pulmonology with recommendations for palliative care consult to discuss goals of care due to patient's very poor prognosis. (12) DVT prophylaxis Current Visit: Yes Status: Acute Assessment and plan: On Coumadin. - Time Spent With Patient Total time spent is greater than 50% in coordination of care (as documented) at patient's floor/unit and/or counseling patient: - Subjective Interval history: Patient with shortness of breath requiring supplemental oxygenation due to multilobular pneumonia in right large pleural effusion. Patient clinically with not much improvement with gurgly noises on examination Pulmonology consulted with recommendations for palliative care consult due to very poor prognosis. - Constitutional Vitals: Temp Pulse Resp BP Pulse Ox 97.8 F 100 20 111/51 94 06/15/18 13:00 06/15/18 13:00 06/15/18 15:38 06/15/18 13:00 06/15/18 15:38 General appearance: Present: cachectic, A&O X 3, pleasant, no acute distress, underweight, answers questions appropriately - Respiratory Respiratory exam: Present: CTAB, rales, rhonchi. Absent: accessory muscle use, respiratory distress, wheezes - Cardiovascular Cardiovascular exam: Present: RRR, +S1, +S2. Absent: diastolic murmur, gallop, rubs, systolic murmur - GI/Abdominal GI/Abdominal exam: Present: normal bowel sounds, soft, no peritoneal signs. Absent: distended, tenderness - Extremities Exam Extremities exam: Absent: pedal edema Internal Medicine: Result - Labs CBC & Chem 7: 06/15/18 06:44 06/15/18 06:44 Labs: Short CBC 06/15/18 Range/Units 06:44 WBC 14.6 H (4.3-11.1) K/mcL Hgb 11.4 L (12.9-16.9) g/dL Hct 32.6 L (37.5-50.1) % Plt Count 96 L (140-400) K/mcL Neutrophils # 13.1 H (1.6-8.9) K/mcL BMP 06/15/18 06:44 Sodium 137 Potassium 4.5 Chloride 97 L Carbon Dioxide 32 H BUN 46 H Creatinine 3.27 H Glucose 125 H Calcium 9.2 - ABG Interpretation ABG results: PT/INR, D-dimer PT 21.8 Seconds (9.4-12.1) H 06/15/18 06:44 Consult Discharge Plan - Plan Referrals: Chantel Serrano MD [Partnered Physician] - 06/19/18 1:00 pm (Please follow up as schedule...) Adolfo Tobias DO [Primary Care Provider] - (Patient is from [place]...)
[2018-06-15] MEDS ORDERED: *HR* Warfarin 2 MG TABLET PO ONE (18:00)
[2018-06-15] MEDS: Mirtazapine 15 MG TABLET PO SCH (20:24)
[2018-06-16] MEDS: MethylPREDNISolone 40 MG/ML VIAL IVP SCH ×4 (00:15→23:46)
[2018-06-16] MEDS: OXYCODONE Oral CONC 10 MG/0.5 ML ORAL.SYG SL PRN ×3 (03:10→17:58)
[2018-06-16] MEDS: Acetylcysteine 10% 2 ML INHSOL IH SCH ×5 (03:49→20:12)
[2018-06-16] MEDS: Ipratropium/Albuterol Neb 3 ML IH SCH ×5 (03:49→20:12)
--- NOTE | 2018-06-16 10:04 | Internal Med Progress Note ---
Date of Encounter: 06/16/18 Time of Encounter: 11:00 - Assessment and plan (1) PNA (pneumonia) Current Visit: Yes Status: Acute Assessment and plan: Patient with multi lobular consolidation on CT scan of the chest Swallow eval demonstrated aspiration with thin and nectar thick barium Patient continues to have gurgling this morning; will continue aggressive pulmonary toileting with respiratory Pulmonology with further recommendations for palliative care consult due to very poor prognosis to dress goals of care. Continue IV cefepime Qualifiers: Pneumonia type: aspiration pneumonia Aspiration pneumonia type: unspecified Laterality: right Lung location: upper lobe of lung Qualified Code(s): J69.0 - Pneumonitis due to inhalation of food and vomit (2) Pleural effusion Current Visit: Yes Status: Acute Assessment and plan: CT of the chest also showed large right pleural effusion status post thoracentesis on 06/12/18 with 1500 mL of clear fluid that was removed. (3) Chronic respiratory failure with hypoxia Current Visit: Yes Status: Chronic Assessment and plan: Continue O2 supplementation. (4) COPD (chronic obstructive pulmonary disease) Current Visit: Yes Status: Chronic Assessment and plan: Patient with COPD exacerbation secondary to the above with continued wheezing rhonchi and rales on exam Will continue IV Solu-Medrol Qualifiers: COPD type: unspecified COPD Qualified Code(s): J44.9 - Chronic obstructive pulmonary disease, unspecified (5) CHF (congestive heart failure) Current Visit: Yes Status: Chronic Assessment and plan: Volume management with hemodialysis. Patient does not appear to be fluid overloaded but he does have large right- sided pleural effusion. Qualifiers: Heart failure type: diastolic Heart failure chronicity: chronic Qualified Code(s): I50.32 - Chronic diastolic (congestive) heart failure (6) ESRD (end stage renal disease) on dialysis Current Visit: Yes Status: Chronic Assessment and plan: Continue dialysis per nephrology recommendations. 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 (8) Anemia in chronic kidney disease, on chronic dialysis Current Visit: Yes Status: Chronic Assessment and plan: Hemoglobin stable Continue Epogen with dialysis per nephrology recommendations (9) Atrial fibrillation Current Visit: Yes Status: Chronic Assessment and plan: Rate controlled. On anticoagulation with Coumadin but Coumadin currently held for thoracentesis. Qualifiers: Atrial fibrillation type: chronic Qualified Code(s): I48.2 - Chronic atrial fibrillation (10) Malnutrition Current Visit: Yes Status: Chronic Assessment and plan: Nutrition consulted. Continue supplemental nutrition with ensure Qualifiers: Malnutrition type: protein-calorie malnutrition Protein-calorie malnutrition severity: unspecified severity Qualified Code(s): E46 - Unspecified protein-calorie malnutrition (11) Goals of care, counseling/discussion Current Visit: Yes Status: Acute Assessment and plan: Pulmonology with recommendations for palliative care consult to discuss goals of care due to patient's very poor prognosis. (12) DVT prophylaxis Current Visit: Yes Status: Acute Assessment and plan: On Coumadin. - Time Spent With Patient Total time spent is greater than 50% in coordination of care (as documented) at patient's floor/unit and/or counseling patient: - Subjective Interval history: Pulmonology consulted with recommendations for palliative care consult due to very poor prognosis. - Constitutional Vitals: Temp Pulse Resp BP Pulse Ox 97.6 F 98 18 116/68 97 06/16/18 05:49 06/16/18 05:49 06/16/18 07:55 06/16/18 05:49 06/16/18 07:55 General appearance: Present: cachectic, A&O X 3, pleasant, no acute distress, underweight, answers questions appropriately - ENT ENT exam: Present: mucous membranes dry - Respiratory Respiratory exam: Present: CTAB. Absent: accessory muscle use, rales, rhonchi, wheezes - Cardiovascular Cardiovascular exam: Present: RRR, +S1, +S2. Absent: diastolic murmur, gallop, rubs, systolic murmur - GI/Abdominal GI/Abdominal exam: Present: soft. Absent: distended - Extremities Exam Extremities exam: Absent: pedal edema - Skin Skin exam: Present: pallor Internal Medicine: Result - Labs CBC & Chem 7: 06/16/18 10:17 06/16/18 10:17 Labs: Short CBC 06/15/18 Range/Units 06:44 WBC 14.6 H (4.3-11.1) K/mcL Hgb 11.4 L (12.9-16.9) g/dL Hct 32.6 L (37.5-50.1) % Plt Count 96 L (140-400) K/mcL Neutrophils # 13.1 H (1.6-8.9) K/mcL BMP 06/15/18 06:44 Sodium 137 Potassium 4.5 Chloride 97 L Carbon Dioxide 32 H BUN 46 H Creatinine 3.27 H Glucose 125 H Calcium 9.2 - ABG Interpretation ABG results: PT/INR, D-dimer PT 21.8 Seconds (9.4-12.1) H 06/15/18 06:44 Consult Discharge Plan - Plan Referrals: Chantel Serrano MD [Partnered Physician] - 06/19/18 1:00 pm (Please follow up as schedule...) Adolfo Tobias DO [Primary Care Provider] - (Patient is from [place]...)
[2018-06-16] MEDS: Finasteride 5 MG TABLET PO SCH (10:10)
[2018-06-16] MEDS: metroNIDAZOLE 500 MG TABLET PO SCH ×3 (10:10→20:40)
[2018-06-16] MEDS: *HR* Amiodarone 200 MG TABLET PO SCH (10:10)
[2018-06-16] MEDS: Renal Vitamin 1 CAP CAPSULE PO SCH (10:10)
[2018-06-16] MEDS: Loratadine 10 MG TABLET PO SCH (10:11)
[2018-06-16] MEDS: Lactobacillus 1 EACH CAP.SPRINK PO SCH ×2 (10:11→20:34)
[2018-06-16 10:31] LABS: Basophils % 0.1 %; Hematocrit 30.9 % (37.5-50.1); Hemoglobin 10.7 g/dL (12.9-16.9); Immature Granulocytes % 0.4 % (0-4); Lymphocytes # 0.1 K/mcL (0.6-4.6); Lymphocytes % 0.3 %; Mean Corpuscular HGB Conc 34.6 g/dL (31.6-35.5); Mean Corpuscular Hemoglobin 29.6 pg (28.0-33.3); Mean Corpuscular Volume 85.6 fL (83.0-100.0); Monocytes # 0.7 K/mcL (0.0-1.3); Monocytes % 3.5 %; Nucleated Red Blood Cells 0.1 /100 WBC (0); Platelet Count 112 K/mcL (140-400); Red Blood Count 3.61 M/mcL (4.19-5.50); Red Cell Distribution Width 20.1 % (11.5-14.5); Segmented Neutrophils % 95.7 %
[2018-06-16 10:34] LABS: Neutrophils # 18.5 K/mcL (1.6-8.9)
[2018-06-16 10:49] LABS: Calcium 9.2 mg/dL (8.6-10.3); Potassium 4.9 mEq/L (3.5-5.1)
[2018-06-16 10:56] LABS: Anisocytosis 1+ (Not Present); Hypochromasia Present (Not Present); Macrocytosis Present (Not Present); Ovalocytes 1+ (Not Present); Platelet Estimate Decreased (Normal); Poikilocytosis 1+ (Not Present); Target Cells 1+ (Not Present); Toxic Granulation Present (Not Present)
[2018-06-16] MEDS: Cefepime HCl 1,000 MG in Water for inj. (sterile) 20 ML 10 ML IVP SCH (14:47)
[2018-06-16 14:56] LABS: INR 2.4; Prothrombin Time 26.9 Seconds (9.4-12.1)
[2018-06-16] MEDS ORDERED: *HR* Warfarin 1 MG TABLET PO ONE (18:00)
[2018-06-16] MEDS: Mirtazapine 15 MG TABLET PO SCH (20:35)
[2018-06-17] MEDS: Ipratropium/Albuterol Neb 3 ML IH SCH ×7 (00:17→23:33)
[2018-06-17] MEDS: Acetylcysteine 10% 2 ML INHSOL IH SCH ×7 (00:17→23:33)
[2018-06-17 05:19] LABS: Basophils % 0.1 %; Nucleated Red Blood Cells 0.1 /100 WBC (0); Red Cell Distribution Width 19.6 % (11.5-14.5)
[2018-06-17 05:21] LABS: Hematocrit 31.6 % (37.5-50.1); Hemoglobin 11.2 g/dL (12.9-16.9); Immature Granulocytes % 0.7 % (0-4); Immature Platelets 15.4 % (1.1-6.1); Lymphocytes # 0.1 K/mcL (0.6-4.6); Lymphocytes % 0.3 %; Mean Corpuscular HGB Conc 35.4 g/dL (31.6-35.5); Mean Corpuscular Hemoglobin 30.3 pg (28.0-33.3); Mean Corpuscular Volume 85.4 fL (83.0-100.0); Monocytes # 0.5 K/mcL (0.0-1.3); Monocytes % 2.5 %; Segmented Neutrophils % 96.4 %
[2018-06-17 05:23] LABS: Neutrophils # 17.7 K/mcL (1.6-8.9); Platelet Count 94 K/mcL (140-400)
[2018-06-17 05:27] LABS: INR 2.7; Prothrombin Time 30.1 Seconds (9.4-12.1)
[2018-06-17 05:36] LABS: Calcium 8.9 mg/dL (8.6-10.3); Potassium 5.3 mEq/L (3.5-5.1)
[2018-06-17 05:44] LABS: Platelet Estimate Decreased (Normal); Target Cells 2+ (Not Present)
[2018-06-17 05:45] LABS: Anisocytosis 1+ (Not Present)
[2018-06-17] MEDS ORDERED: 0.9 % Sodium Chloride 250 ML IVC PRN (06:42)
[2018-06-17] MEDS ORDERED: 0.9 % Sodium Chloride 2,000 ML ONE (06:43)
[2018-06-17] MEDS: *HR* Amiodarone 200 MG TABLET PO SCH (07:48)
[2018-06-17] MEDS: metroNIDAZOLE 500 MG TABLET PO SCH ×3 (07:48→22:40)
[2018-06-17] MEDS: Renal Vitamin 1 CAP CAPSULE PO SCH (07:48)
[2018-06-17] MEDS: MethylPREDNISolone 40 MG/ML VIAL IVP SCH ×3 (07:48→23:20)
[2018-06-17] MEDS: Finasteride 5 MG TABLET PO SCH (07:48)
[2018-06-17] MEDS: Lactobacillus 1 EACH CAP.SPRINK PO SCH ×2 (07:48→22:40)
[2018-06-17] MEDS: Loratadine 10 MG TABLET PO SCH (07:48)
[2018-06-17] MEDS: GuaiFENesin Liq 200 MG/10 ML UDC PO PRN (10:36)
--- NOTE | 2018-06-17 10:57 | Nephrology Progress Note ---
<Cynthia Espinal - Last Filed: 06/17/18 10:55> Date of Encounter: 06/17/18 Time of Encounter: 10:55 - Assessment and Plan (1) ESRD (end stage renal disease) on dialysis Status: Chronic HD MWF, continue current regimen. Avoid nephrotoxins and renal dose all medications. Will order additional HD or UF as needed. (2) Hyperkalemia Status: Acute K is 5.3, HD in progress. (3) Physical deconditioning Status: Chronic Recommend PT/OT. Subjective Principal diagnosis: ESRD Interval history: Pt seen and examined during HD. Pt appears very frail. Objective - Vital Signs Vital signs: Vital Signs Temp Pulse Resp BP Pulse Ox 06/17/18 10:30 103/60 06/17/18 10:15 105/50 06/17/18 10:00 101/58 06/17/18 09:45 103/63 06/17/18 09:30 100/60 06/17/18 09:15 101/59 06/17/18 09:00 105/57 06/17/18 08:45 99/56 06/17/18 08:30 101/59 06/17/18 08:15 105/57 06/17/18 08:06 97.5 F L 97 21 108/62 95 06/17/18 08:00 97.0 F L 19 102/69 06/17/18 07:39 16 92 06/17/18 04:50 98.3 F 99 22 111/70 06/17/18 04:28 19 94 06/17/18 01:15 97.6 F 102 17 99/61 92 06/17/18 00:17 21 94 06/16/18 20:32 97.6 F 102 19 107/61 96 06/16/18 20:12 22 99 06/16/18 16:17 20 98 06/16/18 15:34 97.6 F 97 18 99/48 94 06/16/18 11:37 18 97 Intake and Output 06/16/18 06/17/18 06/17/18 23:59 07:59 15:59 Intake Total 0 / 0 600 / 600 Output Total 0 / 0 Balance 0 / 0 600 / 600 Intake: Oral 0 / 0 0 / 0 Intake, Rinseback and Flushes 600 / 600 Output: Urine 0 / 0 Other: Weight 63.2 kg Hemodialysis Net Fluid Removed 1144 (mL) Patient Weight 06/17/18 23:59 Weight 63.2 kg - General Appearance General appearance: Present: chronically ill, frail EENT: Present: ATNC, hearing intact, vision intact Neck: Present: supple Respiratory: Present: clear Cardiology: Present: no edema, normal S1, normal S2 Dialysis Vascular Access: Arteriovenous Fistula thrill: Yes bruit: Yes Gastrointestinal: Present: normoactive bowel sounds, no tenderness, no guarding Integumentary: Present: no rash, warm and dry Neurologic: Present: alert and oriented x3 Psychiatric: Present: mood/affect appropriate, cooperative - Lab 06/17/18 04:31 06/17/18 04:31 Most recent lab results Calcium 8.9 mg/dL (8.6-10.3) 06/17/18 04:31 Phosphorus 4.0 mg/dL (2.7-4.5) 06/08/18 09:45 Consult Discharge Plan - Plan Instructions: Atrial Fibrillation (DC), Anemia (GEN), Pneumonia (DC) Referrals: Chantel Serrano MD [Partnered Physician] - 06/19/18 1:00 pm (Please follow up as schedule...) Adolfo Tobias DO [Primary Care Provider] - (Patient is from [place]...) Prescriptions: LORazepam Oral Conc [Ativan Oral Conc] 1 mg PO Q4HR PRN 7 Days #20 mls PRN Reason: anxiety/agitation Atropine 1% Opth Drops 4 drop SL Q4H PRN #1 bottle PRN Reason: increased oral secretions. OXYCODONE Oral CONC [Oxycodone Oral Conc] 5 - 10 mg SL Q3H PRN 7 Days #30 ml PRN Reason: Pain/Dyspnea predniSONE [PredniSONE] 10 mg PO DAILY 18 Days tablet Scopolamine Patch [Transderm-Scop] 1.5 mg TD Q72H #3 patch.td72 <Frandy Almeida - Last Filed: 06/24/18 00:29> Date of Encounter: 06/17/18 Objective - Lab 06/17/18 04:31 06/17/18 04:31 Most recent lab results Calcium 8.9 mg/dL (8.6-10.3) 06/17/18 04:31 Phosphorus 4.0 mg/dL (2.7-4.5) 06/08/18 09:45 - Attending Attestation I examined this patient and my medical decision-making was reviewed with the Resident Physician/[employer]. I agree with the documented findings, disposition and treatment plan as described except to the extent set forth below. Pt seen and examined on HD with no new compliants but appears very weak. Exam shows carmen frail elderly male NAD, No LE edema. Potassium noted at 5.3. Will continue HD with UF as tolerated but shorten to 3hrs only. Will continue discussions with patient and family regarding goals of care.
[2018-06-17] MEDS: OXYCODONE Oral CONC 10 MG/0.5 ML ORAL.SYG SL PRN (14:10)
[2018-06-17] MEDS ORDERED: Atropine Sulfate 1% 40 DROP/2 ML BOTTLE SL PRN (14:13)
[2018-06-17] MEDS ORDERED: Glycopyrrolate 0.2 MG/ML VIAL IVP PRN (15:15)
--- NOTE | 2018-06-17 16:05 | Palliative - Consult Note ---
Date of Encounter: 06/17/18 Time of Encounter: 14:00 - Assessment and Plan (1) Anemia in chronic kidney disease, on chronic dialysis Current Visit: Yes Status: Chronic Assessment and plan: Patient current patient of dialysis. Interested in continuing dialysis at this time; may consider reducing dialysis frequency if transition to comfort care/ hospice. (2) Acute on chronic respiratory failure with hypoxia Current Visit: No Status: Acute Assessment and plan: Patient continues to be dyspneic with shortness of breath, audible lungs sounds. Added Atropine drops and Robinol IVP PRN. Continue oxygen therapy and duonebs. (3) HCAP (healthcare-associated pneumonia) Current Visit: No Status: Acute Assessment and plan: Patient receiving cefepime and flagyl. Continue IV antibiotics for treatment of pneumonia. (4) COPD (chronic obstructive pulmonary disease) Current Visit: Yes Status: Chronic Assessment and plan: Lungs continuing to deteriorate. Continue oxygen therapy and duonebs. May utilize oxycodone SL PRN for shortness of breath, in addition to pain. Qualifiers: COPD type: unspecified COPD Qualified Code(s): J44.9 - Chronic obstructive pulmonary disease, unspecified (5) Chronic respiratory failure with hypoxia Current Visit: Yes Status: Chronic (6) Goals of care, counseling/discussion Current Visit: Yes Status: Acute Assessment and plan: Long conversation with patient, patient's son, and daughter present at bedside. Patient and family are interested in keeping patient comfortable; however, patient is very fearful for stopping dialysis completely. Working with JIMI Floyd to see if patient can return to [facility] with [facility] hospice and have dialysis once a week for a few treatments to allow patient to slowly transition to full hospice care. Patient is fearful to stop dialysis completely. Patient and family are interested in Pleurx drain placement to reduce return trips to hospital for fluid draining. SW has reached out to [facility] and [facility] hospice; awaiting response. Palliative care will continue to follow patient. (7) ESRD (end stage renal disease) on dialysis Current Visit: Yes Status: Chronic (8) Physical deconditioning Current Visit: No Status: Acute (9) Shortness of breath Current Visit: No Status: Acute Assessment and plan: Patient reports increased dyspnea. May use oxycodone SL for dyspnea and pain. (10) Copious oral secretions Current Visit: Yes Status: Acute Assessment and plan: Patient having increased oral secretions and audible lung sounds. Added Atropine drops and Robinol PRN. Palliative-CN HPI - Data of Consult Patient: new to practice Consult date: 06/15/18 Requesting Physician: John Clarke Primary Care Provider: Adolfo Tobias, DO - Consult Narrative Palliative Care/Comfort Measures: Palliative care Reason for consult: Goals of care d/t poor prognosis History of present illness: Mr. Yang is a 77 year old male Arrived to [place] via transfer from [facility] on 06/08/18, with c/o cough, confusion, and hallucinations. Per report of patients son, whom was present at bedside, patient had been receiving treatment for pneumonia at [facility] without improvement. Admitted for outpatient failure of treatment for pneumonia ; diagnosed with pneumonia, pleural effusion, COPD, Anemia and CKD, Atrial fibrillation, CHF, ESRD, HTN, Primary amyloidosis of light chain type, chronic respiratory failure with hypoxia, Malnutrition, and physical deconditioning. Initial CT of chest without contrast showing: Abnormal airspace consolidation within the right upper lobe and lingual suggesting a multilobar pneumonia; Large right pleural effusion and small left pleural effusion; Cirrhosis with small volume of ascites in the upper abdomen; and Cardiomegaly and severe atherosclerosis. Nephrology consulted recommend Renal dosing of meds, vitamins, and HD MWF. Modified barium swallow completed, aspiration occurring with thin and nectar thick liquids. Continued medical management for admission diagnosis, including IV antibiotics and Steroids. On 06/13/18, thoracentesis performed with 1500 ml off. Pulmonary consulted on 06/15/18 due to continued Acute on chronic respiratory failure with hypoxia, CHF, ESRD, and Pneumonia; recommend consideration of pleurex catheter and aggressive bronchopulmonary hygiene. Palliative care consulted to discuss goals of care due to very poor prognosis. Patient lying in bed with eyes open holding childrens hands when upon arrival for assessment. Patient is alert and oriented times 3, speech is garbled somewhat. Patient denies pain, nausea, vomiting, or anxiety. Patient does report increased shortness of breath, audible lung sounds noted. Patients son and daughter, Katie Quesada ([facility]) [phone], present at bedside. Patient has received 1 dose of oxycodone in the last 24 hours. CC: John Clarke Past Med Surg Social Fam HX - Past Medical History Medical history: arthritis, atrial fibrillation, CHF, dialysis, GERD, hyperlipidemia, osteoporosis, renal disease, valvular heart disease, other Additional medical history: hemodialysis m,w,f. Left upper extremity fistula + thrill/ + bruit Psychiatric history: no psych history - Past Surgical History Surgical History: appendectomy Additional surgical history: Dialysis shunt and catheter - Social History Smoking Status: Never smoker Smokeless Tobacco Status: No Alcohol use: none Drug use: none - Family History Mother Family Member Ethnicity: Non- Living Status: Hx Family Neurologic Disorders: Yes (Dementia) Father Living Status: Hx Family Cardiac Disorders: Yes (mi) Medications and Allergies Finasteride [Proscar] 5 mg PO DAILY 07/26/16 [History] Polyvinyl Alcohol/Povidone/Pf [Refresh Classic Eye Drops] 1 drop BOTH EYES BID 08/18/16 [History] Fluticasone Propionate Nasal [Flonase] 1 spr NS DAILY PRN 05/03/17 [History] Montelukast [Singulair] 10 mg PO DAILY 10/29/17 [History] Oxygen 3 l NS AD 10/29/17 [History] Lactobacillus Acidophilus [Acidophilus] 100 mg PO BID 01/17/18 [History] Amiodarone [Cordarone] 200 mg PO DAILY 02/03/18 [History] Furosemide [Lasix] 40 mg PO DAILY 02/03/18 [History] Lidocaine/Prilocaine CREAM [Emla] 1 appl TP MOWEFR 02/03/18 [History] Loratadine [Allergy Relief] 10 mg PO DAILY 02/03/18 [History] Albuterol Neb [Proventil Neb] 2.5 mg IH Q4H PRN 02/26/18 [History] Pantoprazole Sodium [Protonix] 40 mg PO DAILY 02/26/18 [History] Vit C/Vit E AC/Lut/Copper/Zinc [Preservision Lutein Softgel] 1 cap PO BID [History] Ondansetron HCl [Zofran] 4 mg PO Q4H PRN 04/16/18 [History] OxyCODONE/APAP 5/325 [Percocet 5/325 MG] 1 each PO Q6H PRN 4 Days #16 tablet [Rx] Dicyclomine [Bentyl] 10 mg PO DAILY 04/25/18 [History] Dronabinol [Marinol] 5 mg PO DAILY 06/08/18 [History] GuaiFENesin ER [Mucinex] 600 mg PO BID 06/08/18 [History] Levofloxacin [Levaquin] 750 mg PO ONCE 06/08/18 [History] Mirtazapine [Remeron] 30 mg PO HS 06/08/18 [History] OLANZapine [Zyprexa] 2.5 mg PO HS 06/08/18 [History] Phenyleph/Pramoxin/Glycr/W.pet [Preparation H Cream] 26 gm RC BID 06/08/18 [ History] Polyethylene Glycol 3350 [MiraLAX] 8.5 gm PO DAILY PRN 06/08/18 [History] Primidone [Mysoline] 50 mg PO HS 06/08/18 [History] Renal Vitamin [Renal Caps Softgel] 1 mg PO DAILY 06/08/18 [History] Sevelamer Carbonate [Renvela] 2.4 gm PO AD 06/08/18 [History] Warfarin [Coumadin] 1 mg PO SA 06/08/18 [History] Warfarin [Coumadin] 2 mg PO SUMOTUWETHFR 06/08/18 [History] levoFLOXacin [Levaquin] 500 mg PO Q48H 06/08/18 [History] 3 Allergy/AdvReac Type Severity Reaction Status Date / Time Amoxicillin Allergy Swelling Verified 05/28/18 15:29 of Lip/Tongue/Throat Penicillins [PCN] Allergy Anaphylaxis Verified 05/28/18 15:29 venom-honey bee Allergy Anaphylaxis Verified 05/28/18 15:29 [bee venom (honey bee)] - Constitutional Constitutional ROS PAL: decreased appetite, frequent falls, lethargy, weight loss - Respiratory Respiratory: cough, dyspnea, dyspnea on exertion - Psychiatric Psychiatric general PM: anxiety Palliative Care-Exam - Constitutional Vitals: Temp Pulse Resp BP Pulse Ox 97.0 F L 97 20 109/84 95 06/17/18 11:40 06/17/18 08:06 06/17/18 11:40 06/17/18 11:40 06/17/18 08:06 General appearance: Present: cooperative, no acute distress (Noted some anxiety during goals of care discussion only.) - Head Head Exam: Present: atraumatic, normal inspection - Eye Eye exam: Present: normal appearance. Absent: periorbital swelling, periorbital tenderness - ENT ENT exam: Present: mucous membranes dry, normal external ear exam - Expanded ENT Exam Mouth Exam: Absent: drooling - Neck Neck exam: Present: full ROM, normal inspection - Respiratory Respiratory exam: Present: accessory muscle use, respiratory distress, rhonchi, wheezes - Cardiovascular Cardiovascular exam: Present: irregular rhythm - Expanded Cardiovascular Exam Peripheral pulses: 1+: Radial (L), Radial (R), Posterior Tibialis (L), Posterior Tibialis (R), Dorsalis Pedis (L) PM, Dorsalis Pedis (R) PM - GI/Abdominal Exam GI/Abdominal exam: Present: normal bowel sounds, soft. Absent: tenderness - Expanded GI/Abdominal Exam GI/Abdominal exam: Present: ascites - Rectal Rectal Exam: Present: deferred - Catheter Type: Urethral (Gutierres) - Extremities Exam Extremities exam: Present: full ROM. Absent: normal inspection (muscle wasting noted to BLE.), pedal edema, tenderness - Neurological Exam Neurological exam: Present: alert, oriented X3 - Expanded Neurological Exam Patient oriented to: Present: person, place, time Coma Scale Eye Opening: Spontaneous Coma Scale Motor Response: Obeys Commands Coma Scale Verbal Response: Oriented Coma Scale Total: 15 - Psychiatric Psychiatric exam: Present: normal affect, normal mood - Skin Skin exam: Present: pallor Internal Medicine - CN: Reslt - Labs CBC & Chem 7: 06/17/18 04:31 06/17/18 04:31 Labs: Short CBC 06/17/18 Range/Units 04:31 WBC 18.4 H (4.3-11.1) K/mcL Hgb 11.2 L (12.9-16.9) g/dL Hct 31.6 L (37.5-50.1) % Plt Count 94 L (140-400) K/mcL Neutrophils # 17.7 H (1.6-8.9) K/mcL BMP 06/17/18 04:31 Sodium 134 L Potassium 5.3 H Chloride 97 L Carbon Dioxide 27 BUN 80 H Creatinine 4.71 H Glucose 121 H Calcium 8.9 - ABG Interpretation ABG results: PT/INR, D-dimer PT 30.1 Seconds (9.4-12.1) H 06/17/18 04:31 Consult Discharge Plan - Plan Referrals: Chantel Serrano MD [Partnered Physician] - 06/19/18 1:00 pm (Please follow up as schedule...) Adolfo Tobias DO [Primary Care Provider] - (Patient is from [place]...) Palliative Quality Palliative Quality: Screen for Code Status: Yes, Screen for Goals of Care: Yes, Screen for Pain: Yes, If Pain Regimen Started, Initiate Bowel Regimen: NA, Screen for Nausea/Vomitting: Yes Code Status: 06/08/18 07:31 Resuscitation Status: Active [RES] Routine Comment: Resuscitation Status: Full Code Resuscitation Status: Active [RES] Routine Comment: Resuscitation Status: [id number]
[2018-06-17] MEDS: Cefepime HCl 1,000 MG in Water for inj. (sterile) 20 ML 10 ML IVP SCH (16:35)
[2018-06-17] MEDS ORDERED: *HR* Warfarin 1 MG TABLET PO ONE (18:00)
--- NOTE | 2018-06-17 20:34 | Internal Med Progress Note ---
Date of Encounter: 06/17/18 Time of Encounter: 11:00 - Assessment and plan (1) PNA (pneumonia) Current Visit: Yes Status: Acute Assessment and plan: Patient with multi lobular consolidation on CT scan of the chest Swallow eval demonstrated aspiration with thin and nectar thick barium Patient continues to have gurgling this morning Pulmonology with further recommendations for palliative care consult due to very poor prognosis to dress goals of care. Continue IV cefepime Qualifiers: Pneumonia type: aspiration pneumonia Aspiration pneumonia type: unspecified Laterality: right Lung location: upper lobe of lung Qualified Code(s): J69.0 - Pneumonitis due to inhalation of food and vomit (2) Pleural effusion Current Visit: Yes Status: Acute Assessment and plan: CT of the chest also showed large right pleural effusion status post thoracentesis on 06/12/18 with 1500 mL of clear fluid that was removed. (3) Chronic respiratory failure with hypoxia Current Visit: Yes Status: Chronic Assessment and plan: Continue O2 supplementation. (4) COPD (chronic obstructive pulmonary disease) Current Visit: Yes Status: Chronic Assessment and plan: Patient with COPD exacerbation secondary to the above with continued wheezing rhonchi and rales on exam Will continue IV Solu-Medrol Qualifiers: COPD type: unspecified COPD Qualified Code(s): J44.9 - Chronic obstructive pulmonary disease, unspecified (5) CHF (congestive heart failure) Current Visit: Yes Status: Chronic Assessment and plan: Volume management with hemodialysis. Patient does not appear to be fluid overloaded but he does have large right- sided pleural effusion. Qualifiers: Heart failure type: diastolic Heart failure chronicity: chronic Qualified Code(s): I50.32 - Chronic diastolic (congestive) heart failure (6) ESRD (end stage renal disease) on dialysis Current Visit: Yes Status: Chronic Assessment and plan: Continue dialysis per nephrology recommendations. 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 (8) Anemia in chronic kidney disease, on chronic dialysis Current Visit: Yes Status: Chronic Assessment and plan: Hemoglobin stable Continue Epogen with dialysis per nephrology recommendations (9) Atrial fibrillation Current Visit: Yes Status: Chronic Assessment and plan: Rate controlled. On anticoagulation with Coumadin but Coumadin currently held for thoracentesis. Qualifiers: Atrial fibrillation type: chronic Qualified Code(s): I48.2 - Chronic atrial fibrillation (10) Malnutrition Current Visit: Yes Status: Chronic Assessment and plan: Nutrition consulted. Continue supplemental nutrition with ensure Qualifiers: Malnutrition type: protein-calorie malnutrition Protein-calorie malnutrition severity: unspecified severity Qualified Code(s): E46 - Unspecified protein-calorie malnutrition (11) Goals of care, counseling/discussion Current Visit: Yes Status: Acute Assessment and plan: Pulmonology with recommendations for palliative care consult to discuss goals of care due to patient's very poor prognosis. (12) DVT prophylaxis Current Visit: Yes Status: Acute Assessment and plan: On Coumadin. - Time Spent With Patient Total time spent is greater than 50% in coordination of care (as documented) at patient's floor/unit and/or counseling patient: - Subjective Interval history: Pulmonology consulted with recommendations for palliative care consult due to very poor prognosis. - Constitutional Vitals: Temp Pulse Resp BP Pulse Ox 97.8 F 103 19 122/73 97 06/17/18 16:57 06/17/18 16:57 06/17/18 19:40 06/17/18 16:57 06/17/18 19:40 General appearance: Present: cachectic, A&O X 3, pleasant, no acute distress, underweight, answers questions appropriately - Respiratory Respiratory exam: Present: CTAB. Absent: accessory muscle use, rales, rhonchi, wheezes - Cardiovascular Cardiovascular exam: Present: RRR, +S1, +S2. Absent: diastolic murmur, gallop, rubs, systolic murmur - GI/Abdominal GI/Abdominal exam: Present: soft - Extremities Exam Extremities exam: Absent: pedal edema - Skin Skin exam: Present: normal color Internal Medicine: Result - Labs CBC & Chem 7: 06/17/18 04:31 06/17/18 04:31 Labs: Short CBC 06/17/18 Range/Units 04:31 WBC 18.4 H (4.3-11.1) K/mcL Hgb 11.2 L (12.9-16.9) g/dL Hct 31.6 L (37.5-50.1) % Plt Count 94 L (140-400) K/mcL Neutrophils # 17.7 H (1.6-8.9) K/mcL BMP 06/17/18 04:31 Sodium 134 L Potassium 5.3 H Chloride 97 L Carbon Dioxide 27 BUN 80 H Creatinine 4.71 H Glucose 121 H Calcium 8.9 - ABG Interpretation ABG results: PT/INR, D-dimer PT 30.1 Seconds (9.4-12.1) H 06/17/18 04:31 Consult Discharge Plan - Plan Referrals: Chantel Serrano MD [Partnered Physician] - 06/19/18 1:00 pm (Please follow up as schedule...) Adolfo Tobias DO [Primary Care Provider] - (Patient is from [place]...)
[2018-06-17] MEDS: Scopolamine Patch 1.5 MG PATCH.TD72 TD SCH (22:41)
[2018-06-17] MEDS: Mirtazapine 15 MG TABLET PO SCH (22:41)
[2018-06-18] MEDS: Ipratropium/Albuterol Neb 3 ML IH SCH ×4 (03:21→15:27)
[2018-06-18] MEDS: Acetylcysteine 10% 2 ML INHSOL IH SCH ×4 (03:21→15:26)
[2018-06-18 05:13] LABS: INR 2.8; Prothrombin Time 32.1 Seconds (9.4-12.1)
[2018-06-18] MEDS: MethylPREDNISolone 40 MG/ML VIAL IVP SCH ×3 (07:33→23:48)
[2018-06-18] MEDS: OXYCODONE Oral CONC 10 MG/0.5 ML ORAL.SYG SL PRN ×4 (07:33→20:01)
[2018-06-18] MEDS: Atropine Sulfate 1% 40 DROP/2 ML BOTTLE SL PRN ×4 (07:33→20:05)
[2018-06-18] MEDS: Finasteride 5 MG TABLET PO SCH (07:34)
[2018-06-18] MEDS: Lactobacillus 1 EACH CAP.SPRINK PO SCH ×2 (07:34→21:01)
[2018-06-18] MEDS: Renal Vitamin 1 CAP CAPSULE PO SCH (07:34)
[2018-06-18] MEDS: Loratadine 10 MG TABLET PO SCH (07:34)
[2018-06-18] MEDS: *HR* Amiodarone 200 MG TABLET PO SCH (07:34)
[2018-06-18] MEDS ORDERED: OXYCODONE Oral CONC 10 MG/0.5 ML ORAL.SYG SL PRN ×2 (10:04→11:09)
[2018-06-18] MEDS: *HR* LORazepam Oral Conc 2 MG/ML SL PRN (11:33)
--- NOTE | 2018-06-18 12:20 | Nephrology Progress Note ---
Date of Encounter: 06/18/18 Time of Encounter: 12:18 - Assessment and Plan (1) ESRD (end stage renal disease) on dialysis Current Visit: Yes Status: Chronic HD MWF, continue current regimen. Avoid nephrotoxins and renal dose all medications. Will order additional HD or UF as needed. Patient made the decision today that he wanted to go palliative. Teresa Pereira CNP is working on d/c to ECF with hospice. (2) Hyperkalemia Current Visit: No Status: Acute No new labs for today. K (3) Physical deconditioning Current Visit: Yes Status: Chronic Pt is now palliative Subjective Principal diagnosis: ESRD Interval history: Pt seen and examined. Family and palliative team at bedside. Objective - Vital Signs Vital signs: Vital Signs Temp Pulse Resp BP Pulse Ox 06/18/18 07:51 97.6 F 101 18 112/71 92 06/18/18 07:36 19 93 06/18/18 04:35 97.6 F 125 19 105/63 93 06/18/18 03:21 20 85 06/18/18 00:14 97.2 F L 101 18 101/52 92 06/17/18 23:33 21 94 06/17/18 21:03 98 F 100 17 100/57 95 06/17/18 19:40 19 97 06/17/18 16:57 97.8 F 103 20 122/73 92 06/17/18 15:44 16 96 Intake and Output 06/17/18 06/18/18 06/18/18 23:59 07:59 15:59 Intake Total 0 / 0 120 / 120 Output Total 0 / 0 Balance 0 / 0 120 / 120 Intake: Oral 0 / 0 120 / 120 Output: Urine 0 / 0 Other: Meal Breakfast Percent of Meal Consumed 20% Stool Size Small Stool Consistency soft formed Stool Color Brown # Bowel Movement Diapers 1 Weight 63.2 kg Patient Weight 06/18/18 23:59 Weight 63.2 kg - General Appearance General appearance: Present: chronically ill, frail EENT: Present: ATNC Neck: Present: supple Respiratory: Present: rhonchi Cardiology: Present: no edema, normal S1, normal S2 Dialysis Vascular Access: Arteriovenous Fistula thrill: Yes bruit: Yes Gastrointestinal: Present: normoactive bowel sounds, no tenderness, no guarding Integumentary: Present: no rash, warm and dry Neurologic: Present: alert and oriented x3 Psychiatric: Present: mood/affect appropriate, cooperative - Lab 06/17/18 04:31 06/17/18 04:31 Most recent lab results Calcium 8.9 mg/dL (8.6-10.3) 06/17/18 04:31 Phosphorus 4.0 mg/dL (2.7-4.5) 06/08/18 09:45 Consult Discharge Plan - Plan Referrals: Chantel Serrano MD [Partnered Physician] - 06/19/18 1:00 pm (Please follow up as schedule...) Adolfo Tobias DO [Primary Care Provider] - (Patient is from [place]...)
--- NOTE | 2018-06-18 12:44 | Palliative Progress Note ---
Date of Encounter: 06/18/18 Time of Encounter: 10:30 - Assessment and plan (1) Anemia in chronic kidney disease, on chronic dialysis Current Visit: Yes Status: Chronic Assessment and plan: Patient has decided to stop dialysis treatment; Nephrology notified. (2) Acute on chronic respiratory failure with hypoxia Current Visit: No Status: Acute Assessment and plan: Patient's oxygen saturation 94-96% during assessment. Patient continues to have auditory lung sounds from across room. Patient has received Atropine, Scopalamine, and Robinul in the last 24 hours. Continue PRN. (3) HCAP (healthcare-associated pneumonia) Current Visit: No Status: Acute (4) COPD (chronic obstructive pulmonary disease) Current Visit: Yes Status: Chronic Assessment and plan: Patient reports continued dyspnea. May use Oxycodone for dyspnea and pain control. Dyspnea inducing anxiety; ordered Ativan 1 mg SL PRN. Qualifiers: COPD type: unspecified COPD Qualified Code(s): J44.9 - Chronic obstructive pulmonary disease, unspecified (5) Chronic respiratory failure with hypoxia Current Visit: Yes Status: Chronic (6) Goals of care, counseling/discussion Current Visit: Yes Status: Acute Assessment and plan: Conducted family meeting with patient's son and daughter (Katie Quesada) Regarding goals of care. Patient able to give some feedback regarding decisions. Patient decided to stop dialysis and transition to comfort care. Patient and family have agreed to change CODE STATUS to DNRCC. Family desires for patient to return to [facility] with [facility]. Spoke with Bee at [facility] regarding plan of care related to medications at facility. Bee verbalized she would assist in arranging medications with facility and call back. Then received phone call from [facility] regarding medication concerns over availability. Spoke with Liz at [facility]. Has Ativan SL, Atropine SL, and Scopalmine in house. Will need Oxycodone to be filled by family, picked up and delivered to facility. Prescriptions written for Atropine , Scopalamine, Ativan SL, and Oxycodone SL for discharge. Will arrange with family for continuous pickling line pickler of Oxycodone and delivery to [facility] at time of discharge. Confirmed this is ok with [facility] by Bee. (7) ESRD (end stage renal disease) on dialysis Current Visit: Yes Status: Chronic Assessment and plan: Patient had decided to stop dialysis and transition to comfort care with [facility] hospice. (8) Physical deconditioning Current Visit: No Status: Acute (9) Shortness of breath Current Visit: No Status: Acute (10) Copious oral secretions Current Visit: Yes Status: Acute Assessment and plan: Patient continues to have audible lung sounds. Continue Scopalamine and Atropine drops at [facility]. - Time Spent With Patient Total time spent is greater than 50% in coordination of care (as documented) at patient's floor/unit and/or counseling patient: - Subjective Interval history: Prior to arrival for visit, Primary RN reported patient having severe pain that dosing every three hours not controlling pain. Upon arrival, patient is laying on right side complaining of severe left hip/leg pain; unable to describe on pain scale, but reports pain is very bad. Patient unable to lay still comfortably. Increased anxiety noted due to increased pain. Patient's son, daughter, and grandson present for assessment. Patient reports dyspnea, pain, exhibiting anxiety; denies nausea and vomiting. During course of assessment, Nephrology physician Dr. Andrea present at bedside to discuss goals of care. Patient opted to stop dialysis in hopes to be kept comfortable; family in agreement. VSS during assessment. Patient has received 4 doses of Oxycodone in the last 24 hours. - Constitutional Vitals: Abnormal lab results WBC 18.4 K/mcL (4.3-11.1) H 06/17/18 04:31 RBC 3.70 M/mcL (4.19-5.50) L 06/17/18 04:31 Hgb 11.2 g/dL (12.9-16.9) L 06/17/18 04:31 Hct 31.6 % (37.5-50.1) L 06/17/18 04:31 RDW 19.6 % (11.5-14.5) H 06/17/18 04:31 Plt Count 94 K/mcL (140-400) L 06/17/18 04:31 Neutrophils # 17.7 K/mcL (1.6-8.9) H 06/17/18 04:31 Lymphocytes # 0.1 K/mcL (0.6-4.6) L 06/17/18 04:31 Nucleated RBCs/100 WBC 0.1 /100 WBC (0) H 06/17/18 04:31 Reactive Lymphocytes Present (Not Present) A 06/12/18 05:23 Toxic Granulation Present (Not Present) A 06/16/18 10:17 Platelet Estimate Decreased (Normal) L 06/17/18 04:31 Large Platelets Present (Not Present) A 06/14/18 04:14 Immature Plt Fraction 15.4 % (1.1-6.1) H 06/17/18 04:31 Hypochromasia Present (Not Present) A 06/16/18 10:17 Poikilocytosis 1+ (Not Present) A 06/16/18 10:17 Anisocytosis 1+ (Not Present) A 06/17/18 04:31 Microcytosis Present (Not Present) A 06/11/18 04:56 Macrocytosis Present (Not Present) A 06/16/18 10:17 Spherocytes 1+ (Not Present) A 06/09/18 14:07 Target Cells 2+ (Not Present) A 06/17/18 04:31 Ovalocytes 1+ (Not Present) A 06/16/18 10:17 Henderson Cells 1+ (Not Present) A 06/10/18 04:55 PT 32.1 Seconds (9.4-12.1) H 06/18/18 04:30 Sodium 134 mEq/L (136-145) L 06/17/18 04:31 Potassium 5.3 mEq/L (3.5-5.1) H 06/17/18 04:31 Chloride 97 mEq/L (98-107) L 06/17/18 04:31 BUN 80 mg/dL (8-23) H 06/17/18 04:31 Creatinine 4.71 mg/dL (0.70-1.30) H 06/17/18 04:31 Est GFR ( Amer) 15 (> 60) L 06/17/18 04:31 Est GFR (Non-Af Amer) 12 (> 60) L 06/17/18 04:31 Glucose 121 mg/dL (70-105) H 06/17/18 04:31 POC Glucose 162 mg/dL (70-99) H 06/10/18 21:53 Calculated Osmolality 303 (280-300) H 06/17/18 04:31 Pleural Appearance Hazy (Clear) A 06/13/18 09:20 General appearance: Present: cooperative, mild distress - Head Head exam: Present: atraumatic, normal inspection - Eye Eye exam: Present: normal appearance, PERRL. Absent: periorbital swelling, periorbital tenderness Pupils: Present: normal accommodation, PERRL - ENT ENT exam: Present: mucous membranes dry, normal external ear exam - Neck Neck exam: Present: full ROM, normal inspection - Respiratory Respiratory exam: Present: accessory muscle use, respiratory distress, rhonchi, wheezes - Cardiovascular Cardiovascular exam: Present: irregular rhythm - GI/Abdominal GI/Abdominal exam: Present: hyperactive bowel sounds, soft. Absent: tenderness - Rectal Rectal exam: Present: deferred - Extremities Exam Extremities exam: Present: full ROM, joint swelling (left hip ), tenderness ( left hip/leg). Absent: pedal edema - Neurological Exam Neurological exam: Present: alert, oriented X3, strengths equal and symetr throughout - Psychiatric Psychiatric exam: Present: anxious - Skin Skin exam: Present: dry, intact, pallor, warm Palliative Quality Palliative Quality: Screen for Code Status: Yes, Screen for Goals of Care: Yes, Screen for Pain: Yes, If Pain Regimen Started, Initiate Bowel Regimen: NA, Screen for Nausea/Vomitting: Yes Code Status: 06/08/18 07:31 Resuscitation Status: Active [RES] Routine Comment: Resuscitation Status: [id number] Resuscitation Status: Active [RES] Routine Comment: Resuscitation Status: Full Code 06/18/18 12:32 DNR [Resuscitation Status: Active] [RES] Routine Comment: Resuscitation Status: DNR-Comfort Care - Labs CBC & Chem 7: 06/17/18 04:31 06/17/18 04:31 Labs: Laboratory Results - last 24 hr 06/18/18 04:30 PT 32.1 H INR 2.8 - ABG Interpretation ABG results: PT/INR, D-dimer PT 32.1 Seconds (9.4-12.1) H 06/18/18 04:30 Consult Discharge Plan - Plan Referrals: Chantel Serrano MD [Partnered Physician] - 06/19/18 1:00 pm (Please follow up as schedule...) Adolfo Tobias DO [Primary Care Provider] - (Patient is from [facility]...)
--- NOTE | 2018-06-18 13:53 | Discharge Summary ---
- NOTES TO OUTPATIENT PROVIDER Notes to Outpatient Provider: Patient initially hospitalized here with multifocal pneumonia, large right-sided pleural effusion, COPD exacerbation, acute on chronic respiratory failure with hypoxia. He was started on IV antibiotics and then underwent thoracentesis which showed a transudative effusion. Patient has been receiving dialysis here since hospitalization. Pulmonology evaluated the patient and recommended pulmonary toilet. Patient has been increasingly weak and deconditioned at home. As he has been slow to recover, palliative care was consulted to discuss goals of care. Per their discussion with family and patient, patient in no longer wishes to be on hemodialysis and wishes to be on comfort care. CODE STATUS has been changed accordingly. Patient will now be discharged back to skilled rehabilitation with hospice. Orders not resulted at time of discharge: Pending orders 06/19/18 04:00 BMP [Basic Metabolic Panel] AM 0400 Complete Blood Count w/o Diff [HEME] AM 0400 PT/INR [Prothrombin Time INR] [COAG] AM 0400 06/20/18 04:00 BMP [Basic Metabolic Panel] AM 0400 Complete Blood Count w/o Diff [HEME] AM 0400 PT/INR [Prothrombin Time INR] [COAG] AM 0400 06/21/18 04:00 BMP [Basic Metabolic Panel] AM 0400 Complete Blood Count w/o Diff [HEME] AM 0400 PT/INR [Prothrombin Time INR] [COAG] AM 0400 06/22/18 04:00 BMP [Basic Metabolic Panel] AM 0400 Complete Blood Count w/o Diff [HEME] AM 0400 PT/INR [Prothrombin Time INR] [COAG] AM 0400 06/23/18 04:00 BMP [Basic Metabolic Panel] AM 0400 Complete Blood Count w/o Diff [HEME] AM 0400 06/24/18 04:00 BMP [Basic Metabolic Panel] AM 0400 Complete Blood Count w/o Diff [HEME] AM 0400 Date of Encounter: 06/18/18 Time of Encounter: 13:50 - Discharge Diagnosis (1) PNA (pneumonia) Priority: Primary Status: Acute Qualifiers: Pneumonia type: aspiration pneumonia Aspiration pneumonia type: unspecified Laterality: right Lung location: upper lobe of lung Qualified Code(s): J69.0 - Pneumonitis due to inhalation of food and vomit (2) Acute on chronic respiratory failure with hypoxia Priority: Secondary Status: Acute (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 (4) CHF (congestive heart failure) Priority: Secondary Status: Chronic Qualifiers: Heart failure type: diastolic Heart failure chronicity: chronic Qualified Code(s): I50.32 - Chronic diastolic (congestive) heart failure (5) DVT prophylaxis Priority: Secondary Status: Acute (6) ESRD (end stage renal disease) on dialysis Priority: Secondary Status: Chronic (7) Anemia in chronic kidney disease, on chronic dialysis Priority: Secondary Status: Chronic (8) Atrial fibrillation Priority: Secondary Status: Chronic Qualifiers: Atrial fibrillation type: chronic Qualified Code(s): I48.2 - Chronic atrial fibrillation (9) COPD (chronic obstructive pulmonary disease) Priority: Secondary Status: Chronic Qualifiers: COPD type: unspecified COPD Qualified Code(s): J44.9 - Chronic obstructive pulmonary disease, unspecified (10) Chronic respiratory failure with hypoxia Priority: Secondary Status: Chronic (11) Malnutrition Priority: Secondary Status: Chronic Qualifiers: Malnutrition type: protein-calorie malnutrition Protein-calorie malnutrition severity: unspecified severity Qualified Code(s): E46 - Unspecified protein-calorie malnutrition (12) Pleural effusion Priority: Secondary Status: Acute Hospital course: Mr. Yang is a 77 year old male Patient with history of end-stage renal disease on hemodialysis, atrial fibrillation, COPD, chronic respiratory failure on home oxygen initially hospitalized here with multifocal pneumonia, large right-sided pleural effusion, COPD exacerbation, acute on chronic respiratory failure with hypoxia. He had been hypotensive while receiving hemodialysis prior to presentation. He was started on IV antibiotics and treatment for COPD with bronchodilators and Solu-Medrol. He then underwent thoracentesis which showed a transudative effusion. Patient has been receiving dialysis here since hospitalization. Pulmonology evaluated the patient and recommended pulmonary toilet in addition to O2 supplementation and bronchodilators. Patient has been increasingly weak and deconditioned at home. As he has been slow to recover, palliative care was consulted to discuss goals of care. Per their discussion with family and patient, patient in no longer wishes to be on hemodialysis and wishes to be on comfort care. CODE STATUS has been changed accordingly. Patient will now be discharged back to skilled rehabilitation with hospice. Discharge discussed with: patient, family, nurse - Time Spent with Patient Total time spent providing and/or coordinating discharge services: Greater than 30 minutes (35 min) - Discharge Medications Prescriptions: LORazepam Oral Conc [Ativan Oral Conc] 1 mg PO Q4HR PRN 7 Days #20 mls PRN Reason: anxiety/agitation Atropine 1% Opth Drops 4 drop SL Q4H PRN #1 bottle PRN Reason: increased oral secretions. OXYCODONE Oral CONC [Oxycodone Oral Conc] 5 - 10 mg SL Q3H PRN 7 Days #30 ml PRN Reason: Pain/Dyspnea predniSONE [PredniSONE] 10 mg PO DAILY 18 Days tablet Scopolamine Patch [Transderm-Scop] 1.5 mg TD Q72H #3 patch.td72 Home Medications: Finasteride [Proscar] 5 mg PO DAILY 07/26/16 [History] Polyvinyl Alcohol/Povidone/Pf [Refresh Classic Eye Drops] 1 drop BOTH EYES BID 08/18/16 [History] Fluticasone Propionate Nasal [Flonase] 1 spr NS DAILY PRN 05/03/17 [History] Montelukast [Singulair] 10 mg PO DAILY 10/29/17 [History] Oxygen 3 l NS AD 10/29/17 [History] Lactobacillus Acidophilus [Acidophilus] 100 mg PO BID 01/17/18 [History] Amiodarone [Cordarone] 200 mg PO DAILY 02/03/18 [History] Furosemide [Lasix] 40 mg PO DAILY 02/03/18 [History] Lidocaine/Prilocaine CREAM [Emla] 1 appl TP MOWEFR 02/03/18 [History] Loratadine [Allergy Relief] 10 mg PO DAILY 02/03/18 [History] Albuterol Neb [Proventil Neb] 2.5 mg IH Q4H PRN 02/26/18 [History] Pantoprazole Sodium [Protonix] 40 mg PO DAILY 02/26/18 [History] Vit C/Vit E AC/Lut/Copper/Zinc [Preservision Lutein Softgel] 1 cap PO BID [History] Ondansetron HCl [Zofran] 4 mg PO Q4H PRN 04/16/18 [History] Dicyclomine [Bentyl] 10 mg PO DAILY 04/25/18 [History] Dronabinol [Marinol] 5 mg PO DAILY 06/08/18 [History] GuaiFENesin ER [Mucinex] 600 mg PO BID 06/08/18 [History] Mirtazapine [Remeron] 30 mg PO HS 06/08/18 [History] OLANZapine [Zyprexa] 2.5 mg PO HS 06/08/18 [History] Phenyleph/Pramoxin/Glycr/W.pet [Preparation H Cream] 26 gm RC BID 06/08/18 [ History] Polyethylene Glycol 3350 [MiraLAX] 8.5 gm PO DAILY PRN 06/08/18 [History] Primidone [Mysoline] 50 mg PO HS 06/08/18 [History] Renal Vitamin [Renal Caps Softgel] 1 mg PO DAILY 06/08/18 [History] Sevelamer Carbonate [Renvela] 2.4 gm PO AD 06/08/18 [History] Warfarin [Coumadin] 1 mg PO SA 06/08/18 [History] Warfarin [Coumadin] 2 mg PO SUMOTUWETHFR 06/08/18 [History] Atropine 1% Opth Drops 4 drop SL Q4H PRN #1 bottle 06/18/18 [Rx] LORazepam Oral Conc [Ativan Oral Conc] 1 mg PO Q4HR PRN 7 Days #20 mls 06/18/18 [Rx] OXYCODONE Oral CONC [Oxycodone Oral Conc] 5 - 10 mg SL Q3H PRN 7 Days #30 ml [Rx] Scopolamine Patch [Transderm-Scop] 1.5 mg TD Q72H #3 patch.td72 06/18/18 [Rx] predniSONE [PredniSONE] 10 mg PO DAILY 18 Days tablet 06/18/18 [Rx] Allergies/Adverse Reactions: 3 Allergy/AdvReac Type Severity Reaction Status Date / Time Amoxicillin Allergy Swelling Verified 05/28/18 15:29 of Lip/Tongue/Throat Penicillins [PCN] Allergy Anaphylaxis Verified 05/28/18 15:29 venom-honey bee Allergy Anaphylaxis Verified 05/28/18 15:29 [bee venom (honey bee)] Date of admission: 06/08/18 07:31 Primary care physician: Adolfo Tobias DO Consults: 06/08/18 08:50 Consult to Speech Therapy [CONS] Routine Comment: Evaluate, develop and implement POC Reason for Consult: Hx of aspiration Call Completed: No 06/08/18 09:12 Consult to Nutrition [CONS] Routine Comment: Consulting Provider: NUTRITION Reason for Dietary Consult: PO Supplementation 06/08/18 09:14 Consult to Physical Therapy [CONS] Routine Comment: Evaluate, develop and implement POC Reason for Consult: Chronic deconditioning Does patient have active BEDREST order?: No Is patient medically & hemodynamically stable?: Yes 06/08/18 09:24 Consult to Nephrology [CONS] Routine Consulting Provider: Kidney Moni/JORDAN/LATIA/PEGGY Reason for Consult: ESRD on HD Call Completed: No 06/09/18 13:49 Consult to Occupational Therapy [CONS] Routine Comment: Evaluate, develop and implement POC Reason for Consult: Deconditioning Does patient have active BEDREST order?: No Is patient medically & hemodynamically stable?: Yes Consult to Physical Therapy [CONS] Routine Comment: Evaluate, develop and implement POC Reason for Consult: Deconditioning Does patient have active BEDREST order?: No Is patient medically & hemodynamically stable?: Yes 06/10/18 07:15 Consult to Dialysis [CONS] ONCE 06/10/18 10:35 Consult to [facility]rentice [CONS] Routine Reason for SW Consult: ida gaona 06/12/18 06:30 Consult to Dialysis [CONS] ONCE 06/12/18 17:54 Consult to Interventional Radiology [CONS] Routine Consulting Provider: Radiology Interventional Cols Reason for Consult: Large right pleural effusion Call Completed: No 06/14/18 11:30 Consult to Dialysis [CONS] ONCE 06/14/18 14:38 Consult to Pulmonology [CONS] Routine Consulting Provider: Pulm Crit Care & Sleep Moni Reason for Consult: Recurrent HAP Call Completed: Yes 06/15/18 17:33 Consult to Palliative Care [CONS] Routine Comment: Consulting Provider: Palliative Care [place] Reason for Consult: Discuss goals of care due to very poor prognosis Call Completed: No 06/17/18 06:45 Consult to Dialysis [CONS] ONCE Discharging clinician: Rebecca Rea Anticipated date of discharge: 06/19/18 - Constitutional Vitals: Temp Pulse Resp BP Pulse Ox 98.0 F 98 20 116/71 93 06/18/18 12:20 06/18/18 12:20 06/18/18 12:20 06/18/18 12:20 06/18/18 12:20 General appearance: Present: cachectic, A&O X 3, pleasant, no acute distress, underweight, answers questions appropriately - Respiratory Respiratory exam: Present: CTAB. Absent: accessory muscle use, rales, rhonchi, wheezes - Cardiovascular Cardiovascular exam: Present: RRR, +S1, +S2. Absent: diastolic murmur, gallop, rubs, systolic murmur - GI/Abdominal GI/Abdominal exam: Present: normal bowel sounds, soft, no peritoneal signs. Absent: distended, tenderness - Extremities Exam Extremities exam: Present: warm, radial pulses palpable and symmetrical. Absent : calf tenderness, cyanotic, pedal edema - Neurological Exam Neurological exam: Present: CN II-XII intact, oriented X3, no focal deficits. Absent: facial droop, speech deficit - Patient Status Disposition: Hospice - Medical Facility Condition: Fair Functional capacity at discharge: bed bound Overall status at discharge: patient is not back to baseline - Discharge Instructions Instructions: Atrial Fibrillation (DC), Anemia (GEN), Pneumonia (DC) Follow Up With: Chantel Serrano MD [Partnered Physician] - 06/19/18 1:00 pm (Please follow up as schedule...) Adolfo Tobias DO [Primary Care Provider] - (Patient is from [place]...) - Diet and Activity Activity: increase activity as tolerated Diet: low fat, low cholesterol, low salt diet
--- NOTE | 2018-06-18 14:12 | Physician Discharge Referral ---
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 (4) CHF (congestive heart failure) Priority: Secondary Status: Chronic (5) DVT prophylaxis Priority: Secondary Status: Acute (6) ESRD (end stage renal disease) on dialysis Priority: Secondary Status: Chronic (7) Anemia in chronic kidney disease, on chronic dialysis Priority: Secondary Status: Chronic (8) Atrial fibrillation Priority: Secondary Status: Chronic (9) COPD (chronic obstructive pulmonary disease) Priority: Secondary Status: Chronic (10) Chronic respiratory failure with hypoxia Priority: Secondary Status: Chronic (11) Malnutrition Priority: Secondary Status: Chronic (12) Pleural effusion Priority: Secondary Status: Acute Prognosis: Poor Aware of Diagnosis: Patient, Family Aware of Prognosis: Patient, Family - Transfer Medications Prescriptions: LORazepam Oral Conc [Ativan Oral Conc] 1 mg PO Q4HR PRN 7 Days #20 mls PRN Reason: anxiety/agitation Atropine 1% Opth Drops 4 drop SL Q4H PRN #1 bottle PRN Reason: increased oral secretions. OXYCODONE Oral CONC [Oxycodone Oral Conc] 5 - 10 mg SL Q3H PRN 7 Days #30 ml PRN Reason: Pain/Dyspnea predniSONE [PredniSONE] 10 mg PO DAILY 18 Days tablet Scopolamine Patch [Transderm-Scop] 1.5 mg TD Q72H #3 patch.td72 Home Medications: Finasteride [Proscar] 5 mg PO DAILY 07/26/16 [History] Polyvinyl Alcohol/Povidone/Pf [Refresh Classic Eye Drops] 1 drop BOTH EYES BID 08/18/16 [History] Fluticasone Propionate Nasal [Flonase] 1 spr NS DAILY PRN 05/03/17 [History] Montelukast [Singulair] 10 mg PO DAILY 10/29/17 [History] Oxygen 3 l NS AD 10/29/17 [History] Lactobacillus Acidophilus [Acidophilus] 100 mg PO BID 01/17/18 [History] Amiodarone [Cordarone] 200 mg PO DAILY 02/03/18 [History] Furosemide [Lasix] 40 mg PO DAILY 02/03/18 [History] Lidocaine/Prilocaine CREAM [Emla] 1 appl TP MOWEFR 02/03/18 [History] Loratadine [Allergy Relief] 10 mg PO DAILY 02/03/18 [History] Albuterol Neb [Proventil Neb] 2.5 mg IH Q4H PRN 02/26/18 [History] Pantoprazole Sodium [Protonix] 40 mg PO DAILY 02/26/18 [History] Vit C/Vit E AC/Lut/Copper/Zinc [Preservision Lutein Softgel] 1 cap PO BID [History] Ondansetron HCl [Zofran] 4 mg PO Q4H PRN 04/16/18 [History] Dicyclomine [Bentyl] 10 mg PO DAILY 04/25/18 [History] Dronabinol [Marinol] 5 mg PO DAILY 06/08/18 [History] GuaiFENesin ER [Mucinex] 600 mg PO BID 06/08/18 [History] Mirtazapine [Remeron] 30 mg PO HS 06/08/18 [History] OLANZapine [Zyprexa] 2.5 mg PO HS 06/08/18 [History] Phenyleph/Pramoxin/Glycr/W.pet [Preparation H Cream] 26 gm RC BID 06/08/18 [ History] Polyethylene Glycol 3350 [MiraLAX] 8.5 gm PO DAILY PRN 06/08/18 [History] Primidone [Mysoline] 50 mg PO HS 06/08/18 [History] Renal Vitamin [Renal Caps Softgel] 1 mg PO DAILY 06/08/18 [History] Sevelamer Carbonate [Renvela] 2.4 gm PO AD 06/08/18 [History] Warfarin [Coumadin] 1 mg PO SA 06/08/18 [History] Warfarin [Coumadin] 2 mg PO SUMOTUWETHFR 06/08/18 [History] Atropine 1% Opth Drops 4 drop SL Q4H PRN #1 bottle 06/18/18 [Rx] LORazepam Oral Conc [Ativan Oral Conc] 1 mg PO Q4HR PRN 7 Days #20 mls 06/18/18 [Rx] OXYCODONE Oral CONC [Oxycodone Oral Conc] 5 - 10 mg SL Q3H PRN 7 Days #30 ml [Rx] Scopolamine Patch [Transderm-Scop] 1.5 mg TD Q72H #3 patch.td72 06/18/18 [Rx] predniSONE [PredniSONE] 10 mg PO DAILY 18 Days tablet 06/18/18 [Rx] Allergies/Adverse Reactions: 3 Allergy/AdvReac Type Severity Reaction Status Date / Time Amoxicillin Allergy Swelling Verified 05/28/18 15:29 of Lip/Tongue/Throat Penicillins [PCN] Allergy Anaphylaxis Verified 05/28/18 15:29 venom-honey bee Allergy Anaphylaxis Verified 05/28/18 15:29 [bee venom (honey bee)] - Respiratory Orders Oxygen / L per min (for comfort; keep sats >88%) Smoking Cessation: Smoking cessation has been advised. For more information, call the [employer] [employer] Quit Line at 9-884-DAYE-NOW. - Advance Directives Code Status: DNR-Comfort Care - Mobility Orders Other (per eval) - Rehabiliation Orders Rehab Potential: Poor - Diet Orders House Supplement per Dietary: Advance soft diet, dietary supplement Magic cup 3 times a day, Ensure Enlive TID , honey thickened liquids CERTIFICATION: I certify that the transfer of the above named patient to an Extended Care Facility is necessary for the continuing treatment of the diagnosis listed. The above information is true and accurate reflection of patient's current condition. Confidential - Redisclosure prohibited without a patient's written consent.
[2018-06-18] MEDS: Cefepime HCl 1,000 MG in Water for inj. (sterile) 20 ML 10 ML IVP SCH (15:53)
[2018-06-18] MEDS ORDERED: *HR* Warfarin 1 MG TABLET PO ONE (18:00)
[2018-06-18] MEDS ORDERED: Ipratropium/Albuterol Neb 3 ML IH PRN (19:45)
[2018-06-18] MEDS ORDERED: Acetylcysteine 10% 2 ML INHSOL IH PRN (19:45)
[2018-06-18] MEDS: Mirtazapine 15 MG TABLET PO SCH (21:01)
[2018-06-19] MEDS: OXYCODONE Oral CONC 10 MG/0.5 ML ORAL.SYG SL PRN ×3 (01:24→09:40)
[2018-06-19] MEDS: Atropine Sulfate 1% 40 DROP/2 ML BOTTLE SL PRN (01:26)
[2018-06-19] MEDS: *HR* LORazepam Oral Conc 2 MG/ML SL PRN (09:39)
[2018-06-19] MEDS: MethylPREDNISolone 40 MG/ML VIAL IVP SCH (09:47)
[2018-06-19] MEDS: Loratadine 10 MG TABLET PO SCH (09:47)
[2018-06-19] MEDS: Finasteride 5 MG TABLET PO SCH (09:48)
[2018-06-19] MEDS: Lactobacillus 1 EACH CAP.SPRINK PO SCH (09:48)
[2018-06-19] MEDS: Renal Vitamin 1 CAP CAPSULE PO SCH (09:48)
--- NOTE | 2018-06-19 11:02 | Palliative Progress Note ---
Date of Encounter: 06/19/18 Time of Encounter: 10:30 - Assessment and plan (1) Anemia in chronic kidney disease, on chronic dialysis Current Visit: Yes Status: Chronic Assessment and plan: Nephrology signed off. (2) Acute on chronic respiratory failure with hypoxia Current Visit: No Status: Acute Assessment and plan: Patient's oxygen saturation 94% during assessment. Patient continues to have auditory lung sounds. Patient has received Atropine, Scopalamine, and Robinul in the last 24 hours. Continue PRN. (3) HCAP (healthcare-associated pneumonia) Current Visit: No Status: Acute (4) COPD (chronic obstructive pulmonary disease) Current Visit: Yes Status: Chronic Assessment and plan: Patient has improved dyspnea. May use Oxycodone for dyspnea and pain control. Continue Ativan and Oxycodone for comfort. Qualifiers: COPD type: unspecified COPD Qualified Code(s): J44.9 - Chronic obstructive pulmonary disease, unspecified (5) Chronic respiratory failure with hypoxia Current Visit: Yes Status: Chronic (6) Goals of care, counseling/discussion Current Visit: Yes Status: Acute Assessment and plan: Conducted family meeting with patient's family present at bedside. Informed patient is stable enough to be transferred at this time. Symptoms controlled. Family reports that family was unaware he could not stay in hospital till time of passing[facility] ready to return to [facility]. Prescriptions have already been arranged. Will notify DIONI Byrd of need to call report for patient. Patient to be discharged to [facility] with [facility]. Confirmed bed availability at [facility] and confirmed availability with [facility] for availability of service. Patient to be discharged today. (7) ESRD (end stage renal disease) on dialysis Current Visit: Yes Status: Chronic (8) Physical deconditioning Current Visit: No Status: Acute (9) Shortness of breath Current Visit: No Status: Acute (10) Copious oral secretions Current Visit: Yes Status: Acute - Time Spent With Patient Total time spent is greater than 50% in coordination of care (as documented) at patient's floor/unit and/or counseling patient: - Subjective Interval history: Patient resting comfortably at time of assessment. Patient has many family members present at bedside. Patient arouses with tactile stimulation. Family verbalized patient's comfort has been over night; no complaints at time of assessment. Patient has received 6 doses in last 24 hours. - Constitutional Vitals: Abnormal lab results WBC 18.4 K/mcL (4.3-11.1) H 06/17/18 04:31 RBC 3.70 M/mcL (4.19-5.50) L 06/17/18 04:31 Hgb 11.2 g/dL (12.9-16.9) L 06/17/18 04:31 Hct 31.6 % (37.5-50.1) L 06/17/18 04:31 RDW 19.6 % (11.5-14.5) H 06/17/18 04:31 Plt Count 94 K/mcL (140-400) L 06/17/18 04:31 Neutrophils # 17.7 K/mcL (1.6-8.9) H 06/17/18 04:31 Lymphocytes # 0.1 K/mcL (0.6-4.6) L 06/17/18 04:31 Nucleated RBCs/100 WBC 0.1 /100 WBC (0) H 06/17/18 04:31 Reactive Lymphocytes Present (Not Present) A 06/12/18 05:23 Toxic Granulation Present (Not Present) A 06/16/18 10:17 Platelet Estimate Decreased (Normal) L 06/17/18 04:31 Large Platelets Present (Not Present) A 06/14/18 04:14 Immature Plt Fraction 15.4 % (1.1-6.1) H 06/17/18 04:31 Hypochromasia Present (Not Present) A 06/16/18 10:17 Poikilocytosis 1+ (Not Present) A 06/16/18 10:17 Anisocytosis 1+ (Not Present) A 06/17/18 04:31 Microcytosis Present (Not Present) A 06/11/18 04:56 Macrocytosis Present (Not Present) A 06/16/18 10:17 Spherocytes 1+ (Not Present) A 06/09/18 14:07 Target Cells 2+ (Not Present) A 06/17/18 04:31 Ovalocytes 1+ (Not Present) A 06/16/18 10:17 [place] Cells 1+ (Not Present) A 06/10/18 04:55 PT 32.1 Seconds (9.4-12.1) H 06/18/18 04:30 Sodium 134 mEq/L (136-145) L 06/17/18 04:31 Potassium 5.3 mEq/L (3.5-5.1) H 06/17/18 04:31 Chloride 97 mEq/L (98-107) L 06/17/18 04:31 BUN 80 mg/dL (8-23) H 06/17/18 04:31 Creatinine 4.71 mg/dL (0.70-1.30) H 06/17/18 04:31 Est GFR ( Amer) 15 (> 60) L 06/17/18 04:31 Est GFR (Non-Af Amer) 12 (> 60) L 06/17/18 04:31 Glucose 121 mg/dL (70-105) H 06/17/18 04:31 POC Glucose 162 mg/dL (70-99) H 06/10/18 21:53 Calculated Osmolality 303 (280-300) H 06/17/18 04:31 Pleural Appearance Hazy (Clear) A 06/13/18 09:20 General appearance: Present: cooperative, no acute distress - Head Head exam: Present: atraumatic, normal inspection - Eye Eye exam: Present: normal appearance. Absent: periorbital swelling, periorbital tenderness - ENT ENT exam: Present: mucous membranes dry, normal external ear exam - Neck Neck exam: Present: normal inspection - Respiratory Respiratory exam: Present: rhonchi, stridor - Cardiovascular Cardiovascular exam: Present: irregular rhythm - Expanded Cardiovascular Exam Peripheral pulses: 1+: Radial (L), Radial (R), 2+: Posterior Tibialis (L), Posterior Tibialis (R), Dorsalis Pedis (L) PM, Dorsalis Pedis (R) PM - GI/Abdominal GI/Abdominal exam: Present: hypoactive bowel sounds, soft. Absent: tenderness - Rectal Rectal exam: Present: deferred - Extremities Exam Extremities exam: Present: normal inspection. Absent: pedal edema - Neurological Exam Neurological exam: Present: altered - Psychiatric Psychiatric exam: Present: normal affect, normal mood Palliative Quality Palliative Quality: Screen for Code Status: Yes, Screen for Goals of Care: Yes, Screen for Pain: Yes, If Pain Regimen Started, Initiate Bowel Regimen: NA, Screen for Nausea/Vomitting: Yes Code Status: 06/08/18 07:31 Resuscitation Status: Active [RES] Routine Comment: Resuscitation Status: [id number] Resuscitation Status: Active [RES] Routine Comment: Resuscitation Status: Full Code 06/18/18 12:32 DNR [Resuscitation Status: Active] [RES] Routine Comment: Resuscitation Status: DNR-Comfort Care - Labs CBC & Chem 7: 06/17/18 04:31 06/17/18 04:31 - ABG Interpretation ABG results: PT/INR, D-dimer PT 32.1 Seconds (9.4-12.1) H 06/18/18 04:30 Consult Discharge Plan - Plan Instructions: Atrial Fibrillation (DC), Anemia (GEN), Pneumonia (DC) Referrals: Chantel Serrano MD [Partnered Physician] - 06/19/18 1:00 pm (Please follow up as schedule...) Adolfo Tobias DO [Primary Care Provider] - (Patient is from [place]...) Prescriptions: LORazepam Oral Conc [Ativan Oral Conc] 1 mg PO Q4HR PRN 7 Days #20 mls PRN Reason: anxiety/agitation Atropine 1% Opth Drops 4 drop SL Q4H PRN #1 bottle PRN Reason: increased oral secretions. OXYCODONE Oral CONC [Oxycodone Oral Conc] 5 - 10 mg SL Q3H PRN 7 Days #30 ml PRN Reason: Pain/Dyspnea predniSONE [PredniSONE] 10 mg PO DAILY 18 Days tablet Scopolamine Patch [Transderm-Scop] 1.5 mg TD Q72H #3 patch.td72
--- NOTE | 2018-06-19 11:04 | Nephrology Progress Note ---
Date of Encounter: 06/19/18 Time of Encounter: 11:03 - Assessment and Plan (1) ESRD (end stage renal disease) on dialysis Current Visit: Yes Status: Chronic Pt wishes to discontinue HD. He will be transferred to [facility] hopefully today. We will sign off. (2) Hyperkalemia Current Visit: No Status: Acute No new labs for today. (3) Physical deconditioning Current Visit: Yes Status: Chronic Pt is now palliative Subjective Principal diagnosis: ESRD Interval history: Pt seen and examined. Family at bedside, he is not comfort care. Objective - Vital Signs Vital signs: Vital Signs Temp Pulse Resp BP Pulse Ox 06/19/18 07:11 98.3 F 87 10 102/55 94 06/19/18 00:24 88 19 100/53 97 06/18/18 21:35 98.2 F 92 17 112/74 97 06/18/18 12:20 98.0 F 98 20 116/71 93 Intake and Output 06/18/18 06/19/18 06/19/18 23:59 07:59 15:59 Intake Total 0 / 0 0 / 0 Balance 0 / 0 0 / 0 Intake: Oral 0 / 0 0 / 0 Other: Meal NPO Percent of Meal Consumed 0% - General Appearance General appearance: Present: chronically ill, frail EENT: Present: ATNC Dialysis Vascular Access: Arteriovenous Fistula Gastrointestinal: Present: no tenderness, no guarding Integumentary: Present: no rash, warm and dry - Lab 06/17/18 04:31 06/17/18 04:31 Most recent lab results Calcium 8.9 mg/dL (8.6-10.3) 06/17/18 04:31 Phosphorus 4.0 mg/dL (2.7-4.5) 06/08/18 09:45 Consult Discharge Plan - Plan Instructions: Atrial Fibrillation (DC), Anemia (GEN), Pneumonia (DC) Referrals: Chantel Serrano MD [Partnered Physician] - 06/19/18 1:00 pm (Please follow up as schedule...) Adolfo Tobias DO [Primary Care Provider] - (Patient is from [place]...) Prescriptions: LORazepam Oral Conc [Ativan Oral Conc] 1 mg PO Q4HR PRN 7 Days #20 mls PRN Reason: anxiety/agitation Atropine 1% Opth Drops 4 drop SL Q4H PRN #1 bottle PRN Reason: increased oral secretions. OXYCODONE Oral CONC [Oxycodone Oral Conc] 5 - 10 mg SL Q3H PRN 7 Days #30 ml PRN Reason: Pain/Dyspnea predniSONE [PredniSONE] 10 mg PO DAILY 18 Days tablet Scopolamine Patch [Transderm-Scop] 1.5 mg TD Q72H #3 [id number]
[2018-06-19 11:26] VITALS: BP 93/58
[2020-06-14] MEDS ORDERED: Ipratropium/Albuterol Neb 3 ML IH ONE ×3 (00:09→07:31)
[2020-06-14] MEDS ORDERED: MethylPREDNISolone 40 MG/ML VIAL IVP ONE ×2 (01:35→09:13)
[2020-06-14] MEDS ORDERED: 0.9 % Sodium Chloride 1,000 ML IV.SOLN IV ONE (08:49)
[2020-06-14] MEDS ORDERED: levoFLOXacin 500 MG TABLET PO ONE (09:13)
[2020-06-14] MEDS ORDERED: Renal Vitamin 1 CAP CAPSULE PO ONE (09:13)
[2020-06-14] MEDS ORDERED: *HR* Amiodarone 200 MG TABLET PO ONE (09:13)
[2020-06-14] MEDS ORDERED: Finasteride 5 MG TABLET PO ONE (09:13)
[2020-06-14] MEDS ORDERED: Loratadine 10 MG TABLET PO ONE (09:13)
== END 2018-06-19 13:51 | disposition hospice, inpatient (51) | DRG 177 ==
LOC: 2ANU → SUATTDRO 07:31 → 2ANU 06-11 08:29
PROVIDERS: ADMIT Family Medicine; ATTEND Internal Medicine